=== PATIENT | female | born 1955 | race Two or more races ===

== ENCOUNTER 2016-11-26 08:57 | Day surgery (SDC) | payer OTHER ==
[2016-11-25 14:07] VITALS: BMI 31.0
[2016-11-26 13:08] VITALS: PULSE 66
[2016-11-26 15:15] VITALS: BP 136/67; TEMP 97.4
--- NOTE | 2016-11-27 13:10 | PATH ---
Surgical Pathology Report Patient Name: JOSE ROGERS [facility]. Rec. #: [id number] /Age/Gender: 1955 (Age: 61) / F Account: [id number] Location: U-ENDOSCOPY Taken: 11/26/2016 Received: 11/26/2016 Reported: 11/27/2016 Physicians: Hugo Feliz M.D. Specimen(s) Received A: BX PROXIMAL TRANSVERSE COLON POLYP B: BX DISTAL TRANSVERSE COLON POLYP Clinical History History of colonic polyp Diverticulosis, colon polyps Final Diagnosis A. COLON, PROXIMAL TRANSVERSE, POLYP, BIOPSY: TUBULAR ADENOMA. B. COLON, DISTAL TRANSVERSE, POLYP, BIOPSY: SERRATED ADENOMA. Electronically Signed Alf Ch M.D. Gross Description A. Received in formalin, labeled "biopsy proximal transverse colon polyp" is a calix, irregular portion of soft tissue measuring 0.4 cm in greatest dimension. The specimen is submitted in toto in one cassette. B. Received in formalin, labeled "biopsy distal transverse colon polyp" are 2 calix, irregular portions of soft tissue measuring 0.3 and 0.5 cm in greatest dimension. The specimens are submitted in toto in one cassette. DL/11/26/2016 saudi11/26/2016
== END 2016-11-26 15:15 | disposition home or self-care (01) ==
LOC: JASU-ENDO 08:57
PROVIDERS: ATTEND Internal Medicine Gastroenterology
PROC: 0DBL8ZX Excision of Transverse Colon, Via Natural or Artificial Opening Endoscopic, Diagnostic (ICD-10-PCS; 2016-11-26)
PROC: 0DBE8ZX Excision of Large Intestine, Via Natural or Artificial Opening Endoscopic, Diagnostic (ICD-10-PCS; principal; 2016-11-26 10:00)
DX: Z86.010 Personal history of colon polyps (principal); K57.30 Diverticulosis of large intestine without perforation or abscess without bleeding; K63.5 Polyp of colon; D12.3 Benign neoplasm of transverse colon
CPT/HCPCS: 88305-TC

== ENCOUNTER 2017-02-05 16:09 | Inpatient (IN) | payer OTHER ==
--- NOTE | 2017-02-05 17:03 | PDOC ---
Rapid Medical Evaluation Chief Complaint: Shortness of Breath Time Seen by Provider: 02/05/17 16:57 Medical Evaluation: Allergies Allergy/AdvReac Type Severity Reaction Status Date / Time No Known Allergies Allergy Verified 09/06/16 14:30 02/05/17 16:[address] Beth for labs and ultrasound of abdomen. Went home but has been worsen SOB/ Dizzy - C/O pain- Hx anemia
[2017-02-05 17:41] LABS: BASOPHIL 0.4 % (0-2.0); EOSINOPHIL 0.5 % (0-4.5); MCH 29.1 pg (25.7-33.7); MCHC 32.4 g/dl (32.0-36.0); MEAN CELL VOLUME 89.7 fl (80-96); MEAN PLT VOLUME 8.8 fl (7.5-11.1); NEUTROPHILS 80.8 % (42.8-82.8); PLATELET COUNT 327 K/MM3 (134-434); RDW 15.5 % (11.6-15.6); WHITE BLOOD COUNT 8.9 K/mm3 (4.0-10.0)
[2017-02-05 18:00] LABS: URINE APPEARANCE CLEAR; URINE BILIRUBIN NEGATIVE (NEGATIVE); URINE BLOOD NEGATIVE (NEGATIVE); URINE COLOR LTYELLOW; URINE GLUCOSE (UA) NEGATIVE (NEGATIVE); URINE KETONE NEGATIVE (NEGATIVE); URINE LEUK ESTERASE NEGATIVE (NEGATIVE); URINE NITRITE NEGATIVE (NEGATIVE); URINE UROBILINOGEN NEGATIVE E.U./dl (0.2-1.0)
[2017-02-05 18:10] LABS: URINE PROTEIN 1+ (NEGATIVE)
[2017-02-05 18:24] LABS: CREATININE 2.5 mg/dL (0.55-1.02)
[2017-02-05 18:25] LABS: ALBUMIN 2.9 g/dl (3.4-5.0); BILIRUBIN,TOTAL 0.4 mg/dL (0.2-1.0); CALCIUM 8.1 mg/dL (8.5-10.1); TOT PROT 6.8 g/dl (6.4-8.2)
--- NOTE | 2017-02-05 19:06 | PDOC ---
History of Present Illness - General History Source: Patient Exam Limitations: No Limitations - History of Present Illness Initial Comments: 02/05/17 19:20 The patient is a 61 year old female, with a significant past medical history of anemia, asthma, uterine CA, COPD, diabetes, HTN and HLD, who presents to the emergency department with abdominal pain/bloating, constipation and shortness of breath. She describes her abdominal pain as a bloating sensation, ranging from mild to moderate, without radiation or modifying factors. She attests her shortness of breath as due to her abdominal bloating. She had an ultrasound prior to presentation, which showed cholelithiasis and hepatomegaly but no evidence of ascites. The patient denies chest pain, headache and dizziness. Denies fever, chills, nausea, vomit and diarrhea. Denies dysuria, frequency, urgency and hematuria. Allergies: None Past surgical history: Abdominal surgery Social history: No alcohol, tobacco or drug use reported <Aston Dang - Last Filed: 02/05/17 19:22> <Cee Rosa - Last Filed: 02/05/17 22:58> <Elder Garcia - Last Filed: 02/05/17 23:32> - General Chief Complaint: Shortness of Breath Stated Complaint: SOB Time Seen by Provider: 02/05/17 16:57 Past History <Aston Dang - Last Filed: 02/05/17 19:22> <Cee Rosa - Last Filed: 02/05/17 22:58> - Past Medical History Anemia: Yes Asthma: Yes Cancer: Yes (UTERINE 2007) Cardiac Disorders: Yes (ARRYTHMIA) CVA: No COPD: Yes CHF: Yes Dementia: No Diabetes: Yes GI Disorders: Yes (NAUSEA AND VOMITING,COLON POLYP) Disorders: Yes HTN: Yes Hypercholesterolemia: Yes Liver Disease: No Suicide Attempt (Hx): No Seizures: No Thyroid Disease: No - Surgical History Abdominal Surgery: No Appendectomy: No Cardiac Surgery: No Cholecystectomy: No Lung Surgery: No Neurologic Surgery: No Orthopedic Surgery: No - Family Disease History Family Disease History: Other: Father (kidney disease), Brother (kidney disease) - Immunization History Immunization Up to Date: Yes - Psycho/Social/Smoking Cessation Hx Anxiety: No Suicidal Ideation: No Smoking Status: Yes Smoking History: Current every day smoker Years of Tobacco Use: 31 Have you smoked in the past 12 months: Yes Number of Cigarettes Smoked Daily: 10 Information on smoking cessation initiated: No 'Breaking Loose' booklet given: 11/26/16 Hx Alcohol Use: No Drug/Substance Use Hx: No Substance Use Type: None Hx Substance Use Treatment: No <Radha,Boris - Last Filed: 02/05/17 23:32> - Past Medical History Allergies/Adverse Reactions: Allergies Allergy/AdvReac Type Severity Reaction Status Date / Time No Known Allergies Allergy Verified 02/05/17 17:01 Home Medications: Ambulatory Orders Aspirin 81 mg PO DAILY 01/18/14 Albuterol 0.083% Nebulizer Laura [Ventolin 0.083% Nebulizer Soln -] 1 neb NEB Q4H PRN #120 vial 11/19/14 Alprazolam [Xanax] 0.5 mg PO HS PRN #15 tablet 11/19/14 Hydralazine HCl [Apresoline -] 50 mg PO BID #60 tablet 11/19/14 Metoprolol Succinate [Toprol XL -] 25 mg PO DAILY #30 tab.sr.24h 11/19/14 Folic Acid 1 mg PO DAILY 01/09/16 Furosemide [Lasix -] 80 mg PO BID@0600,1400 #60 tablet 01/11/16 Glyburide 5 mg PO DAILY 09/06/16 Atorvastatin Ca [Lipitor] 20 mg PO HS 11/25/16 Iron Polysaccharides [Niferex-150 -] 150 mg PO DAILY 11/25/16 Lisinopril [Zestril] 2.5 mg PO DAILY 11/26/16 Metolazone 2.5 mg PO DAILY 11/26/16 Pramipexole Di-HCl [Mirapex] 0.25 mg PO DAILY 11/26/16 Review of Systems - Review of Systems Able to Perform ROS?: Yes Comments:: 02/05/17 19:21 GENERAL/CONSTITUTIONAL: No fever or chills. No weakness. HEAD, EYES, EARS, NOSE AND THROAT: No change in vision. No ear pain or discharge. No sore throat. CARDIOVASCULAR: +Shortness of breath No chest pain RESPIRATORY: No cough, wheezing, or hemoptysis. GASTROINTESTINAL: +Abdominal pain and bloating, constipation. No nausea, vomiting, diarrhea GENITOURINARY: No dysuria, frequency, or change in urination. MUSCULOSKELETAL: No joint or muscle swelling or pain. No neck or back pain. SKIN: No rash NEUROLOGIC: No headache, vertigo, loss of consciousness, or change in strength/ sensation. ENDOCRINE: No increased thirst. No abnormal weight change HEMATOLOGIC/LYMPHATIC: No anemia, easy bleeding, or history of blood clots. ALLERGIC/IMMUNOLOGIC: No hives or skin allergy. <AltonAston Maris - Last Filed: 02/05/17 19:22> *Physical Exam - Vital Signs Last Vital Signs Temp Pulse Resp BP Pulse Ox 98.2 F 80 25 H 136/69 98 02/05/17 16:57 02/05/17 16:57 02/05/17 16:57 02/05/17 16:57 02/05/17 16:57 - Physical Exam Comments: 02/05/17 19:21 GENERAL: +Morbidly obese. Awake, alert, and fully oriented, in no acute distress HEAD: No signs of trauma, normocephalic, atraumatic EYES: PERRLA, EOMI, sclera anicteric, conjunctiva clear ENT: Auricles normal inspection, hearing grossly normal, nares patent, oropharynx clear without exudates. Moist mucosa NECK: Normal ROM, supple, no lymphadenopathy, JVD, or masses LUNGS: No distress, speaks full sentences, clear to auscultation bilaterally HEART: Regular rate and rhythm, normal S1 and S2, no murmurs, rubs or gallops, peripheral pulses normal and equal bilaterally. ABDOMEN: +Soft, distended, tympanitic abdomen, nontender, bowel sounds are distant. No guarding, no rebound. No masses EXTREMITIES: Normal inspection, Normal range of motion, no edema. No clubbing or cyanosis. NEUROLOGICAL: Cranial nerves II through XII grossly intact. Normal speech, normal gait, no focal sensorimotor deficits SKIN: Warm, Dry, normal turgor, no rashes or lesions noted. <Aston Dang - Last Filed: 02/05/17 19:22> - Vital Signs Last Vital Signs Temp Pulse Resp BP Pulse Ox 98.2 F 76 18 154/73 98 02/05/17 16:57 02/05/17 20:09 02/05/17 20:09 02/05/17 20:09 02/05/17 20:09 <MoeCee - Last Filed: 02/05/17 22:58> - Vital Signs Last Vital Signs Temp Pulse Resp BP Pulse Ox 98.2 F 80 25 H 136/69 98 02/05/17 16:57 02/05/17 16:57 02/05/17 16:57 02/05/17 16:57 02/05/17 16:57 <Elder Garcia - Last Filed: 02/05/17 23:32> Heart Score/ECG Review #1 ECG reviewed & interpreted by me at: 19:23 02/05/17 17:20 Ventricular rate: 78 bpm Normal sinus rhythm Nonspecific ST and T wave abnormality <Aston Dang - Last Filed: 02/05/17 19:22> ED Treatment Course - LABORATORY CBC & Chemistry Diagram: 02/05/17 17:30 02/05/17 17:30 - ADDITIONAL ORDERS Additional order review: Laboratory Results 02/05/17 02/05/17 17:45 17:30 Sodium 140 Potassium 3.6 Chloride 104 Carbon Dioxide 25 Anion Gap 11 BUN 65 H Creatinine 2.5 H Creat Clearance w eGFR 19.58 Random Glucose 151 H Calcium 8.1 L Total Bilirubin 0.4 AST 31 ALT 28 Alkaline Phosphatase 186 H Total Protein 6.8 Albumin 2.9 L Lipase 397 H Urine Color Ltyellow Urine Appearance Clear Urine pH 5.0 Ur Specific [place] 1.008 Urine Protein 1+ H Urine Glucose (UA) Negative Urine Ketones Negative Urine Blood Negative Urine Nitrite Negative Urine Bilirubin Negative Urine Urobilinogen Negative Ur Leukocyte Esterase Negative 02/05/17 17:30 RBC 2.88 L MCV 89.7 MCHC 32.4 RDW 15.5 MPV 8.8 Neutrophils % 80.8 D Lymphocytes % 6.5 L D Monocytes % 11.8 H Eosinophils % 0.5 Basophils % 0.4 <Aston Dang - Last Filed: 02/05/17 19:22> - LABORATORY CBC & Chemistry Diagram: 02/05/17 17:30 02/05/17 17:30 - ADDITIONAL ORDERS Additional order review: Laboratory Results 02/05/17 02/05/17 17:45 17:30 Sodium 140 Potassium 3.6 Chloride 104 Carbon Dioxide 25 Anion Gap 11 BUN 65 H Creatinine 2.5 H Creat Clearance w eGFR 19.58 Random Glucose 151 H Calcium 8.1 L Total Bilirubin 0.4 AST 31 ALT 28 Alkaline Phosphatase 186 H Total Protein 6.8 Albumin 2.9 L Lipase 397 H Urine Color Ltyellow Urine Appearance Clear Urine pH 5.0 Ur Specific [place] 1.008 Urine Protein 1+ H Urine Glucose (UA) Negative Urine Ketones Negative Urine Blood Negative Urine Nitrite Negative Urine Bilirubin Negative Urine Urobilinogen Negative Ur Leukocyte Esterase Negative Urine RBC 1 Urine WBC <1 Ur Epithelial Cells Rare Urine Bacteria Rare Hyaline Casts 3 Urine Mucus Rare 02/05/17 17:30 RBC 2.88 L MCV 89.7 MCHC 32.4 RDW 15.5 MPV 8.8 Neutrophils % 80.8 D Lymphocytes % 6.5 L D Monocytes % 11.8 H Eosinophils % 0.5 Basophils % 0.4 - RADIOLOGY Radiograph Interpretation: 02/05/17 22:58 Abdomen/Pelvis CT Impression: No CT findings of acute pathology are seen within the abdomen/ pelvis. Concentric subcutaneous edema is noted along the abdomen and pelvis more prominent along the flanks which has developed in comparison to a previous CT exam of 08/19/2011. Cardiomegaly. Mild inferior vena cava and hepatic vein distention is noted possibly secondary to cardiac dysfunction. Correlate clinically. Cholelithiasis. In comparison to the 2011 CT study there is increased bilateral perirenal soft tissue stranding which could be on the basis of noninfectious inflammation. Reported By: Pablito Rainey MD <Cee Rosa - Last Filed: 02/05/17 22:58> - LABORATORY CBC & Chemistry Diagram: 02/05/17 17:30 02/05/17 17:30 - ADDITIONAL ORDERS Additional order review: Laboratory Results 02/05/17 02/05/17 17:45 17:30 Sodium 140 Potassium 3.6 Chloride 104 Carbon Dioxide 25 Anion Gap 11 BUN 65 H Creatinine 2.5 H Creat Clearance w eGFR 19.58 Random Glucose 151 H Calcium 8.1 L Total Bilirubin 0.4 AST 31 ALT 28 Alkaline Phosphatase 186 H Total Protein 6.8 Albumin 2.9 L Lipase 397 H Urine Color Ltyellow Urine Appearance Clear Urine pH 5.0 Ur Specific [place] 1.008 Urine Protein 1+ H Urine Glucose (UA) Negative Urine Ketones Negative Urine Blood Negative Urine Nitrite Negative Urine Bilirubin Negative Urine Urobilinogen Negative Ur Leukocyte Esterase Negative 02/05/17 17:30 RBC 2.88 L MCV 89.7 MCHC 32.4 RDW 15.5 MPV 8.8 Neutrophils % 80.8 D Lymphocytes % 6.5 L D Monocytes % 11.8 H Eosinophils % 0.5 Basophils % 0.4 <Elder Garcia - Last Filed: 02/05/17 23:32> Medical Decision Making - Medical Decision Making 02/05/17 20:51 Patient is a morbidly obese 61-year-old female with multiple comorbidities who presents with worsening abdominal bloating and discomfort that exacerbates her dyspnea when she is supine or minimally exerts herself. Patient has no respiratory symptoms at rest. In the ER, patient is awake and alert, with a soft , distended and tympanitic abdomen which has minimal periumbilical tenderness to deep palpation only. Bowel sounds are distant. Will obtain CT of abdomen and pelvis with by mouth contrast. Will reassess. 02/05/17 23:29 Patient reassessed. Patient is resting comfortably, with dyspnea with minimal exertion and when supine. CT that and pelvis reveals no evidence of acute intra- abdominal pathology. Diffuse subcutaneous edema which is more pronounced at the flanks with prominent inferior vena cava and dilated hepatic veins was also noted likely related to diastolic heart dysfunction. CBC reveals moderate anemia with hemoglobin of 8 and hematocrit of 25. In this patient, anemia is chronic and is likely related to chronic blood loss, source of which has not been identified after an extensive workup. Given significant comorbidities, anemia may be contributing to patient's overall cardiac dysfunction. At this time, will admit patient to med/surge and will transfuse 2 units of packed cells. CMP reveals persistent chronic renal insufficiency. Case discussed with Dr. Mcgrath. He agrees with the plan of care. <Elder Garcia - Last Filed: 02/05/17 23:32> *DC/Admit/Observation/Transfer - Attestations Scribe Attestion: 02/05/17 19:21 Documentation prepared by Aston Dang, acting as biomedical manager for Elder Garcia MD <Aston Dang - Last Filed: 02/05/17 19:22> <Cee Rosa - Last Filed: 02/05/17 22:58> - Discharge Dispostion Admit: Yes - Attestations Physician Attestion: 02/05/17 20:51 The documentation was prepared by the scribe under my direct supervision. I have reviewed the documentation which correctly represents the findings, medical decision-making and critical action taken by me. <Elder Garcia - Last Filed: 02/05/17 23:32> Diagnosis at time of Disposition: Symptomatic anemia Edema Qualifiers: Edema type: generalized Qualified Code(s): R60.1 - Generalized edema CHF (congestive heart failure) Qualifiers: Congestive heart failure type: unspecified congestive heart failure type Congestive heart failure chronicity: acute on chronic Qualified Code(s): I50.9 - Heart failure, unspecified - Discharge Dispostion Condition at time of disposition: Fair - Referrals Referrals: Anyi Mcgrath MD [Primary Care Provider] -
[2017-02-05 19:44] LABS: URINE BACTERIA RARE /hpf (NONE SEEN); URINE HYALINE CAST 3 /lpf; URINE MUCUS RARE; URINE RBC 1 /hpf (0-3); URINE WBC <1 /hpf (3-5)
[2017-02-05] MEDS ORDERED: ALBUTEROL SO4 0.083% IH SOL 2.5 MG/3 ML VIAL.NEB. NEB PRN (23:35)
[2017-02-05] MEDS ORDERED: ALPRAZolam 0.25 MG TABLET PO PRN (23:35)
[2017-02-05] MEDS ORDERED: ACETAMINOPHEN 325 MG TABLET (FP) PO PRN (23:37)
[2017-02-06] MEDS ORDERED: HEPARIN NA (PORCINE) 5,000 UNITS/ML 1ML VIAL ONE (00:16)
[2017-02-06] MEDS ORDERED: ALBUTEROL SO4 0.083% IH SOL 2.5 MG/3 ML VIAL.NEB. NEB ONE (00:16)
[2017-02-06] MEDS: ALBUTEROL SO4 0.083% IH SOL 2.5 MG/3 ML VIAL.NEB. NEB SCH ×4 (00:22→18:18)
[2017-02-06] MEDS: HEPARIN NA (PORCINE) 5,000 UNITS/ML 1ML VIAL SQ SCH ×3 (00:22→21:48)
[2017-02-06 05:29] VITALS: BMI 34.6
[2017-02-06] MEDS ORDERED: INFLUENZA VACCINE 45 MCG/0.5 ML (MDV 16-17) IM ONE (06:00)
[2017-02-06] MEDS: FUROSEMIDE 40 MG/4 ML INJECTABLE VIAL IVPB SCH ×2 (06:27→16:08)
[2017-02-06] MEDS: glyBURIDE 5 MG TABLET (UD) PO SCH (06:27)
[2017-02-06] MEDS: INSULIN SLIDING SCALE (NOVOLOG) 1 VIAL SQ SCH ×4 (06:28→21:35)
[2017-02-06 07:55] LABS: BASOPHIL 0.3 % (0-2.0); EOSINOPHIL 0.9 % (0-4.5); MCHC 32.2 g/dl (32.0-36.0); MEAN CELL VOLUME 90.2 fl (80-96); MEAN PLT VOLUME 8.9 fl (7.5-11.1); NEUTROPHILS 76.1 % (42.8-82.8); PLATELET COUNT 278 K/MM3 (134-434); RDW 15.3 % (11.6-15.6); WHITE BLOOD COUNT 8.6 K/mm3 (4.0-10.0)
[2017-02-06 08:07] LABS: ALBUMIN 2.8 g/dl (3.4-5.0); CALCIUM 7.7 mg/dL (8.5-10.1); CREATININE 2.5 mg/dL (0.55-1.02); MAGNESIUM 2.1 mg/dL (1.8-2.4)
[2017-02-06 08:12] LABS: BILIRUBIN,TOTAL 0.5 mg/dL (0.2-1.0); TOT PROT 6.6 g/dl (6.4-8.2); TROPONIN I 0.03 ng/ml (0.00-0.05)
--- NOTE | 2017-02-06 08:36 | HP ---
Admitting History and Physical - Admission History of Present Illness: 61 year old female, with a significant past medical history of anemia, asthma, uterine CA, COPD, diabetes, HTN and HLD, who presents to the emergency department with abdominal pain/bloating, constipation and shortness of breath. She describes her abdominal pain as a bloating sensation, ranging from mild to moderate, without radiation or modifying factors. She attests her shortness of breath as due to her abdominal bloating. She had an ultrasound prior to presentation, which showed cholelithiasis and hepatomegaly but no evidence of ascites. - Past Medical History Cardiovascular: Yes: CHF, HTN, Hyperlipdemia, Pulmonary Hypertension Pulmonary: Yes: Asthma, Sleep Apnea (on BIPAP at night) Gastrointestinal: Yes: GI Bleed (see HPI), Other (had EGD and colono 12/31, ) Renal/: Yes: Renal Failure, Renal Inusuff ...LMP: 11/17/07 ...: No Heme/Onc: Yes: Anemia Endocrine: Yes: Diabetes Mellitus (uncontrolled) - Smoking History Smoking history: Current every day smoker Have you smoked in the past 12 months: Yes Aproximately how many cigarettes per day: 10 - Alcohol/Substance Use Hx Alcohol Use: No - Social History ADL: Independent History of Recent Travel: No Home Medications - Allergies Allergies/Adverse Reactions: Allergies Allergy/AdvReac Type Severity Reaction Status Date / Time No Known Allergies Allergy Verified 02/05/17 17:01 - Home Medications Home Medications: Ambulatory Orders Aspirin 81 mg PO DAILY 01/18/14 Albuterol 0.083% Nebulizer Laura [Ventolin 0.083% Nebulizer Soln -] 1 neb NEB Q4H PRN #120 vial 11/19/14 Alprazolam [Xanax] 0.5 mg PO HS PRN #15 tablet 11/19/14 Hydralazine HCl [Apresoline -] 50 mg PO BID #60 tablet 11/19/14 Metoprolol Succinate [Toprol XL -] 25 mg PO DAILY #30 tab.sr.24h 11/19/14 Folic Acid 1 mg PO DAILY 01/09/16 Furosemide [Lasix -] 80 mg PO BID@0600,1400 #60 tablet 01/11/16 Glyburide 5 mg PO DAILY 09/06/16 Atorvastatin Ca [Lipitor] 20 mg PO HS 11/25/16 Iron Polysaccharides [Niferex-150 -] 150 mg PO DAILY 11/25/16 Lisinopril [Zestril] 2.5 mg PO DAILY 11/26/16 Metolazone 2.5 mg PO DAILY 11/26/16 Pramipexole Di-HCl [Mirapex] 0.25 mg PO DAILY 11/26/16 Review of Systems - Review of Systems Cardiovascular: reports: Edema, Shortness of Breath. denies: Chest Pain Respiratory: reports: SOB, SOB on Exertion Gastrointestinal: reports: Abdominal Pain, Bloating Genitourinary: reports: No Symptoms Physical Examination Vital Signs: Vital Signs Temperature 98.1 F 02/06/17 06:38 Pulse Rate 76 02/06/17 06:38 Respiratory Rate 22 02/06/17 06:38 Blood Pressure 155/81 02/06/17 06:38 O2 Sat by Pulse Oximetry (%) 100 02/06/17 03:36 Cardiovascular: Yes: Murmur, S1, S2 Respiratory: Yes: Regular, CTA Bilaterally Gastrointestinal: Yes: Normal Bowel Sounds, Soft, Distention Edema: Yes Neurological: Yes: Alert, Oriented Labs: CBC, BMP 02/06/17 06:20 02/06/17 06:20 Problem List - Problems (1) CHF (congestive heart failure) Assessment/Plan: RT SIDED IV LASIX AND ALBUMIN MONITOR LABS Code(s): I50.9 - HEART FAILURE, UNSPECIFIED Qualifiers: Congestive heart failure type: unspecified congestive heart failure type Congestive heart failure chronicity: acute on chronic Qualified Code(s ): I50.9 - Heart failure, unspecified (2) Symptomatic anemia Assessment/Plan: S/P PRBC MONITOR CBC Code(s): D64.9 - ANEMIA, UNSPECIFIED (3) CKD (chronic kidney disease) Code(s): N18.9 - CHRONIC KIDNEY DISEASE, UNSPECIFIED Qualifiers: Chronic kidney disease stage: unspecified stage Qualified Code(s): N18.9 - Chronic kidney disease, unspecified (4) COPD (chronic obstructive pulmonary disease) Assessment/Plan: NEBS Code(s): J44.9 - CHRONIC OBSTRUCTIVE PULMONARY DISEASE, UNSPECIFIED (5) Diabetes mellitus Assessment/Plan: BGM ENDO A1C Code(s): E11.9 - TYPE 2 DIABETES MELLITUS WITHOUT COMPLICATIONS (6) Abdominal pain Assessment/Plan: GI CONSULT CT SCAN --EDEMA Code(s): R10.9 - UNSPECIFIED ABDOMINAL PAIN
[2017-02-06] MEDS: LISINOPRIL 5 MG TABLET (FP) PO SCH (09:46)
[2017-02-06] MEDS: ASPIRIN 81 MG CHEWABLE TABLETS PO SCH (09:46)
[2017-02-06] MEDS: hydrALAZINE HCL 50 MG TABLET (FP) PO SCH ×2 (09:46→21:48)
[2017-02-06] MEDS: FOLIC ACID 1 MG TABLET (FP) PO SCH (09:46)
[2017-02-06] MEDS: METOPROLOL SUCCINATE 25 MG TAB.SR.24H (FP) PO SCH (09:47)
[2017-02-06 10:52] LABS: THYROID STIMULATING HORMONE 0.98 uIU/ml (0.358-3.74)
--- NOTE | 2017-02-06 14:50 | CONSULT ---
Consult Consult Specialty:: Nephrology Reason for Consultation:: CKD - History of Present Illness Chief Complaint: abdominal pain and bloating History of Present Illness: Pt is a 61 year old lady with pmhx of CKD, anemia, asthma, COPD, DM, HTN, uterine cancer and hyperlipidemia who presents to the ER with abdominal pain. She complains of bloating. She denies vomiting or diarrhea. She denies dysuria or hematuria. She does have history of CKD. She follows with Dr Kay. Her renal function is not far from baseline. She denies fevers or chills. She denies blood in the stool. - History Source History Provided By: Patient, Medical Record - Past Medical History Cardio/Vascular: Yes: CHF, HTN, Hyperlipdemia, Pulmonary Hypertension Pulmonary: Yes: Asthma, Sleep Apnea (on BIPAP at night) Gastrointestinal: Yes: GI Bleed (see HPI), Other (had EGD and colono 12/31, ) Renal/: Yes: Renal Failure, Renal Inusuff ...LMP: 11/17/07 ...: No Endocrine: Yes: Diabetes Mellitus (uncontrolled) - Alcohol/Substance Use Hx Alcohol Use: No - Smoking History Smoking history: Current every day smoker Have you smoked in the past 12 months: Yes Aproximately how many cigarettes per day: 10 - Social History ADL: Independent History of Recent Travel: No Home Medications - Allergies Allergies/Adverse Reactions: Allergies Allergy/AdvReac Type Severity Reaction Status Date / Time No Known Allergies Allergy Verified 02/05/17 17:01 - Home Medications Home Medications: Ambulatory Orders Aspirin 81 mg PO DAILY 01/18/14 Albuterol 0.083% Nebulizer Laura [Ventolin 0.083% Nebulizer Soln -] 1 neb NEB Q4H PRN #120 vial 11/19/14 Alprazolam [Xanax] 0.5 mg PO HS PRN #15 tablet 11/19/14 Hydralazine HCl [Apresoline -] 50 mg PO BID #60 tablet 11/19/14 Metoprolol Succinate [Toprol XL -] 25 mg PO DAILY #30 tab.sr.24h 11/19/14 Folic Acid 1 mg PO DAILY 01/09/16 Furosemide [Lasix -] 80 mg PO BID@0600,1400 #60 tablet 01/11/16 Glyburide 5 mg PO DAILY 09/06/16 Atorvastatin Ca [Lipitor] 20 mg PO HS 11/25/16 Iron Polysaccharides [Niferex-150 -] 150 mg PO DAILY 11/25/16 Lisinopril [Zestril] 2.5 mg PO DAILY 11/26/16 Metolazone 2.5 mg PO DAILY 11/26/16 Pramipexole Di-HCl [Mirapex] 0.25 mg PO DAILY 11/26/16 Family Disease History - Family Disease History Family History: Denies Review of Systems - Review of Systems Constitutional: reports: Malaise Eyes: reports: No Symptoms HENT: reports: No Symptoms Neck: reports: No Symptoms Cardiovascular: reports: No Symptoms Respiratory: reports: SOB on Exertion Gastrointestinal: reports: Abdominal Pain, Bloating. denies: Diarrhea, Vomiting Musculoskeletal: reports: No Symptoms Integumentary: reports: No Symptoms Neurological: reports: No Symptoms Endocrine: reports: No Symptoms Hematology/Lymphatic: reports: No Symptoms Psychiatric: reports: No Symptoms Physical Exam Vital Signs: Vital Signs Temperature 98.2 F 02/06/17 10:00 Pulse Rate 82 02/06/17 10:00 Respiratory Rate 20 02/06/17 10:00 Blood Pressure 138/58 02/06/17 10:00 O2 Sat by Pulse Oximetry (%) 100 02/06/17 03:36 Constitutional: Yes: Calm Eyes: Yes: Conjunctiva Clear HENT: Yes: Atraumatic Neck: Yes: Supple Cardiovascular: Yes: S1, S2 Respiratory: Yes: CTA Bilaterally Gastrointestinal: Yes: Soft, Abdomen, Obese Renal/: Yes: WNL Musculoskeletal: Yes: WNL Edema: Yes Edema: LLE: 1+, RLE: 1+ Neurological: Yes: Oriented Psychiatric: Yes: Oriented Labs: CBC, BMP 02/06/17 06:20 02/06/17 06:20 Laboratory Tests 01/11/16 04/30/16 05/06/16 08:20 09:40 12:20 WBC Hgb Sodium Potassium Chloride Carbon Dioxide Anion Gap BUN Creatinine 2.0 H 2.3 H 2.6 H Urine Color Urine Appearance Urine pH Ur Specific [place] Urine Glucose (UA) Urine Ketones Urine Blood Urine Nitrite Urine Bilirubin Urine Urobilinogen Ur Leukocyte Esterase 02/05/17 02/05/17 02/05/17 10:30 17:30 17:30 WBC Hgb 8.4 L Sodium Potassium Chloride Carbon Dioxide Anion Gap BUN 65 H Creatinine 2.5 H 2.5 H Urine Color Urine Appearance Urine pH Ur Specific [place] Urine Glucose (UA) Urine Ketones Urine Blood Urine Nitrite Urine Bilirubin Urine Urobilinogen Ur Leukocyte Esterase 02/05/17 02/06/17 02/06/17 17:45 06:20 06:20 WBC 8.6 Hgb 8.9 L Sodium 138 Potassium 3.7 Chloride 103 Carbon Dioxide 24 Anion Gap 11 BUN 62 H Creatinine 2.5 H Urine Color [place] Urine Appearance Clear Urine pH 5.0 Ur Specific [place] 1.008 Urine Glucose (UA) Negative Urine Ketones Negative Urine Blood Negative Urine Nitrite Negative Urine Bilirubin Negative Urine Urobilinogen Negative Ur Leukocyte Esterase Negative Imaging - Results Chest X-ray: Report Reviewed Problem List - Problems (1) Abdominal pain Code(s): R10.9 - UNSPECIFIED ABDOMINAL PAIN (2) CHF (congestive heart failure) Code(s): I50.9 - HEART FAILURE, UNSPECIFIED Qualifiers: Congestive heart failure type: unspecified congestive heart failure type Congestive heart failure chronicity: acute on chronic Qualified Code(s ): I50.9 - Heart failure, unspecified (3) Edema Code(s): R60.9 - EDEMA, UNSPECIFIED Qualifiers: Edema type: generalized Qualified Code(s): R60.1 - Generalized edema (4) Symptomatic anemia Code(s): D64.9 - ANEMIA, UNSPECIFIED (5) Acute CHF (congestive heart failure) Code(s): I50.9 - HEART FAILURE, UNSPECIFIED (6) CKD (chronic kidney disease) Code(s): N18.9 - CHRONIC KIDNEY DISEASE, UNSPECIFIED Qualifiers: Chronic kidney disease stage: unspecified stage Qualified Code(s): N18.9 - Chronic kidney disease, unspecified (7) Diabetes mellitus Code(s): E11.9 - TYPE 2 DIABETES MELLITUS WITHOUT COMPLICATIONS (8) HTN (hypertension) Code(s): I10 - ESSENTIAL (PRIMARY) HYPERTENSION Assessment/Plan Current Medications Generic Name Dose Route Start Last Admin Trade Name Freq PRN Reason Stop Dose Admin Acetaminophen 650 mg 02/05/17 23:37 Tylenol - PO Q4H PRN FEVER OR PAIN Albumin Human 25 gm 02/06/17 10:00 Albumin Human 25% - IVPB 02/07/17 22:01 BID ALDO Albuterol Sulfate 1 amp 02/05/17 23:35 Ventolin 0.083% Nebulizer Soln - NEB Q4H PRN SHORT OF BREATH/WHEEZING Albuterol Sulfate 1 amp 02/06/17 00:00 02/06/17 11:05 Ventolin 0.083% Nebulizer Soln - NEB 1 amp Q6HPO ALDO Administration Alprazolam 0.5 mg 02/05/17 23:35 Xanax - PO 02/08/17 23:34 HS PRN ANXIETY Aspirin 81 mg 02/06/17 10:00 02/06/17 09:46 Asa - PO 81 mg DAILY ALDO Administration Atorvastatin Calcium 20 mg 02/06/17 22:00 Lipitor - PO HS [facility] Folic Acid 1 mg 02/06/17 10:00 02/06/17 09:46 Folic Acid - PO 1 mg DAILY ALDO Administration Furosemide 80 mg 02/06/17 06:00 02/06/17 16:08 Lasix Injection - IVPB 80 mg BIDLASIX [facility] Administration Glyburide 5 mg 02/06/17 07:00 02/06/17 06:27 Diabeta - PO 5 mg DAILY@0700 [facility] Administration Heparin Sodium (Porcine) 5,000 unit 02/05/17 23:45 02/06/17 09:48 Heparin - SQ 5,000 unit BID ALDO Administration Hydralazine HCl 50 mg 02/06/17 10:00 02/06/17 09:46 Apresoline - PO 50 mg BID ALDO Administration Insulin Aspart 1 vial 02/06/17 07:00 02/06/17 12:30 Novolog Vial Sliding Scale - SQ Not Given ACHS [facility] Protocol Lisinopril 2.5 mg 02/06/17 10:00 02/06/17 09:46 Prinivil PO 2.5 mg DAILY ALDO Administration Metoprolol Succinate 25 mg 02/06/17 10:00 02/06/17 09:47 Toprol Xl - PO 25 mg DAILY ALDO Administration Pramipexole Dihydrochloride 0.25 mg 02/06/17 10:00 02/06/17 16:09 Mirapex - PO 0.25 mg DAILY ALDO Administration Impression 1. CKD 2. anemia 3. CHF 4. HTN 5. DM 6. hyperlipidemia 7. anxiety 8. uterine cancer 9. 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
--- NOTE | 2017-02-06 15:17 | CON.CARD ---
Cardiology Consult (text) - Consultation Consultation Note: Chief Complaint: Abdominal distension History of Present Illness: 61 yo smoker with h/o mild systolic dysfunction, HTN, HL, pHTN, mod PARVEZ on cpap , CKD (bline CR 1.3-1.4), PAD, DM h/o GIB, presents with abdominal distension x 2 weeks. Also with + early satiety. Triggered by URI with symptoms of cough, congestion, myalgias. States she occasionally misses lasix a few times per month. Denies missing any more doses than usual. Recent difficulty sleeping, though unclear if true orthopnea. No cp, sob, LE edema, pnd, palps, dizziness, bleeding or transient neurologic symptoms. No f/c/s, n/v/d, rashes, headache, visual disturbances. PMHx/PSHx: per hpi Social hx: current smoker, family hx: mother CVA in 60s, fatal periop event 67 (? [place]) ros per hpi Ambulatory Orders Aspirin 81 mg PO DAILY 01/18/14 Albuterol 0.083% Nebulizer Laura [Ventolin 0.083% Nebulizer Soln -] 1 neb NEB Q4H PRN #120 vial 11/19/14 Alprazolam [Xanax] 0.5 mg PO HS PRN #15 tablet 11/19/14 Hydralazine HCl [Apresoline -] 50 mg PO BID #60 tablet 11/19/14 Metoprolol Succinate [Toprol XL -] 25 mg PO DAILY #30 tab.sr.24h 11/19/14 Folic Acid 1 mg PO DAILY 01/09/16 Furosemide [Lasix -] 80 mg PO BID@0600,1400 #60 tablet 01/11/16 Glyburide 5 mg PO DAILY 09/06/16 Atorvastatin Ca [Lipitor] 20 mg PO HS 11/25/16 Iron Polysaccharides [Niferex-150 -] 150 mg PO DAILY 11/25/16 Lisinopril [Zestril] 2.5 mg PO DAILY 11/26/16 Metolazone 2.5 mg PO DAILY 11/26/16 Pramipexole Di-HCl [Mirapex] 0.25 mg PO DAILY 11/26/16 Current Medications Acetaminophen (Tylenol -) 650 mg PO Q4H PRN PRN Reason: FEVER OR PAIN Albumin Human (Albumin Human 25% -) 25 gm IVPB BID ALDO Stop: 02/07/17 22:01 Albuterol Sulfate (Ventolin 0.083% Nebulizer Soln -) 1 amp NEB Q4H PRN PRN Reason: SHORT OF BREATH/WHEEZING Albuterol Sulfate (Ventolin 0.083% Nebulizer Soln -) 1 amp NEB Q6HPO [facility] Last Admin: 02/06/17 11:05 Dose: 1 amp Alprazolam (Xanax -) 0.5 mg PO HS PRN PRN Reason: ANXIETY Stop: 02/08/17 23:34 Aspirin (Asa -) 81 mg PO DAILY [facility] Last Admin: 02/06/17 09:46 Dose: 81 mg Atorvastatin Calcium (Lipitor -) 20 mg PO HS [facility] Folic Acid (Folic Acid -) 1 mg PO DAILY [facility] Last Admin: 02/06/17 09:46 Dose: 1 mg Furosemide (Lasix Injection -) 80 mg IVPB BIDLASIX [facility] Last Admin: 02/06/17 06:27 Dose: 80 mg Glyburide (Diabeta -) 5 mg PO DAILY@0700 [facility] Last Admin: 02/06/17 06:27 Dose: 5 mg Heparin Sodium (Porcine) (Heparin -) 5,000 unit SQ BID [facility] Last Admin: 02/06/17 09:48 Dose: 5,000 unit Hydralazine HCl (Apresoline -) 50 mg PO BID [facility] Last Admin: 02/06/17 09:46 Dose: 50 mg Insulin Aspart (Novolog Vial Sliding Scale -) 1 vial SQ ACHS [facility] PRN Reason: Protocol Last Admin: 02/06/17 12:30 Dose: Not Given Lisinopril (Prinivil) 2.5 mg PO DAILY [facility] Last Admin: 02/06/17 09:46 Dose: 2.5 mg Metoprolol Succinate (Toprol Xl -) 25 mg PO DAILY [facility] Last Admin: 02/06/17 09:47 Dose: 25 mg Pramipexole Dihydrochloride (Mirapex -) 0.25 mg PO DAILY [facility] Vital Signs - 24 hr 02/05/17 02/05/17 02/06/17 16:57 20:09 00:01 Temperature 98.2 F Pulse Rate 80 Pulse Rate [ 76 Left Radial] Respiratory 25 H 18 Rate Blood Pressure 136/69 Blood Pressure 154/73 150/80 [Right Arm] O2 Sat by Pulse 98 98 Oximetry (%) 02/06/17 02/06/17 02/06/17 02:02 03:01 03:36 Temperature 97.9 F 97.9 F 98.1 F Pulse Rate 75 Pulse Rate [ 77 72 Left Radial] Respiratory 20 22 24 Rate Blood Pressure 112/70 Blood Pressure 148/67 164/79 [Right Arm] O2 Sat by Pulse 95 99 100 Oximetry (%) 02/06/17 02/06/17 02/06/17 06:22 06:38 10:00 Temperature 98.1 F 98.1 F 98.2 F Pulse Rate 76 76 82 Pulse Rate [ Left Radial] Respiratory 22 22 20 Rate Blood Pressure 168/71 155/81 138/58 Blood Pressure [Right Arm] O2 Sat by Pulse Oximetry (%) Intake & Output 02/04/17 02/05/17 02/06/17 02/07/17 07:59 07:59 07:59 07:59 Intake Total 300 Balance 300 Weight 214 lb 6.4 oz NAD, calm JVD elevated, neck supple RRR nl s1, s2 no m/r/g + bs soft nt nd ext with trace edema, no c/c + dp/pt, no carotid bruits aaox3 no jaundice, diaphoresis CBC, BMP 02/06/17 06:20 02/06/17 06:20 Laboratory Tests 01/09/16 02/05/17 02/05/17 13:13 10:30 17:30 INR 1.18 H Hemoglobin A1c % Magnesium Total Bilirubin AST ALT Alkaline Phosphatase Troponin I B-Natriuretic Peptide 59782.76 H Albumin Lipase 397 H TSH 02/06/17 02/06/17 06:20 06:20 INR Hemoglobin A1c % 8.8 H D Magnesium 2.1 Total Bilirubin 0.5 D AST 30 ALT 27 Alkaline Phosphatase 185 H Troponin I 0.03 B-Natriuretic Peptide Albumin 2.8 L Lipase TSH 0.98 D eKG: SR, non-specific t wave abnormalities tele: SR occ pvc CXR: clear Abd CT: mild distension of IVC. subcutaneous edema, hepatomegaly. Echo 06/2016: mod LVE, mod decr EF (no EF reported); mild RVE and mild HK; mild L /ANISH; valves WNL; no RVSP LHC 06/29: nl EDP; EF 40% (global); 50-60% OM1 (normal FFR); mild dz others 61 yo smoker with h/o mild systolic dysfunction, HTN, HL, pHTN, mod PARVEZ on cpap , CKD (bline CR 1.3-1.4), PAD, DM h/o GIB, presents with abdominal distension x 2 weeks. acute HF exacerbation - Known biventricular cardiomyopathy/pHTN. Currently with possible acute RHF exacerbation. URI as trigger? - CE neg x 1. EKG without acute ischemic changes. - home diuretic regimen lasix 80 mg po bid. Agree with diuresis with lasix 80 mg IV bid. - daily standing weight, bmp, i/o - mgm't of undelrying parvez and pulmonary disease per pmd - con't hydralazine, metoprolol, lisinopril Mod PARVEZ - con't cpap HTN - con't hydralazine, metoprolol, lisinopril. Uptitrate regimen as needed to maintain systolic < 140. For now, will uptitrate hydralazine dose for tomorrow. Acute on chronic CKD - renal function improving. con't to monitor with diuresis. HL - con't statin
[2017-02-06] MEDS: PRAMIPEXOLE DIHYDROCHLORIDE 0.25 MG TABLET PO SCH (16:09)
--- NOTE | 2017-02-06 17:04 | EKG ---
Test Reason : Blood Pressure : / mmHG Vent. Rate : 082 BPM Atrial Rate : 082 BPM P-R Int : 158 ms QRS Dur : 106 ms QT Int : 424 ms P-R-T Axes : 064 012 -24 degrees QTc Int : 495 ms NORMAL SINUS RHYTHM POSSIBLE LEFT ATRIAL ENLARGEMENT NONSPECIFIC T WAVE ABNORMALITY ABNORMAL ECG WHEN COMPARED WITH ECG OF 09-JAN-2016 13:35, NONSPECIFIC T WAVE ABNORMALITY, WORSE IN ANTEROLATERAL LEADS Confirmed by ARINA VELASCO, MAKENZIE ([id number]) on 02/06/2017 5:04:34 PM Referred By: TR MONTERO Confirmed By:MAKENZIE SANTA MD
[2017-02-06] MEDS: ALBUMIN HUMAN 25% 100 ML VIAL IVPB SCH ×2 (17:08→21:49)
--- NOTE | 2017-02-06 17:09 | EKG ---
Test Reason : Blood Pressure : / mmHG Vent. Rate : 078 BPM Atrial Rate : 078 BPM P-R Int : 136 ms QRS Dur : 094 ms QT Int : 488 ms P-R-T Axes : 082 001 -40 degrees QTc Int : 556 ms POOR DATA QUALITY, INTERPRETATION MAY BE ADVERSELY AFFECTED NORMAL SINUS RHYTHM NONSPECIFIC ST AND T WAVE ABNORMALITY ABNORMAL ECG WHEN COMPARED WITH ECG OF 09-JAN-2016 13:35, NONSPECIFIC T WAVE ABNORMALITY NOW EVIDENT IN ANTERIOR LEADS Confirmed by MAKENZIE SANTA MD ([id number]) on 02/06/2017 5:08:47 PM Referred By: Confirmed By:MAKENZIE SANTA MD
--- NOTE | 2017-02-06 20:50 | CON.GI ---
Consult Consult Specialty:: GI Referred by:: Dr Mcgrath Reason for Consultation:: Abdominal distention - History of Present Illness Chief Complaint: dyspnea and abdominal bloating. History of Present Illness: 59 F with h/o metabolic syndrome, advanced CKD, cardiomyopathy, CHF, COPD- active smoker, admitted with abdominal distention, dyspnea and mild, generalized abdominal pain. She now has no pain but states she is more distended than usual. She had a mildly elevated lipase on admission and CT shows no evidence of obstruction, or ascites. There is cardiomegaly, increased subQ edema affecting the abdominal wall, and a dilated IVC. She has a BNP of 21, 873. - History Source History Provided By: Patient, Medical Record Limitations to Obtaining History: No Limitations - Past Medical History Cardio/Vascular: Yes: CHF, HTN, Hyperlipdemia, Pulmonary Hypertension Pulmonary: Yes: Asthma, Sleep Apnea (on BIPAP at night) Gastrointestinal: Yes: GI Bleed (see HPI), Other (had EGD and colono 12/31, ) Renal/: Yes: Renal Failure, Renal Inusuff ...LMP: 11/17/07 ...: No Endocrine: Yes: Diabetes Mellitus (uncontrolled) - Alcohol/Substance Use Hx Alcohol Use: No - Smoking History Smoking history: Current every day smoker Have you smoked in the past 12 months: Yes Aproximately how many cigarettes per day: 10 - Social History ADL: Independent History of Recent Travel: No Home Medications - Allergies Allergies/Adverse Reactions: Allergies Allergy/AdvReac Type Severity Reaction Status Date / Time No Known Allergies Allergy Verified 02/05/17 17:01 - Home Medications Home Medications: Ambulatory Orders Aspirin 81 mg PO DAILY 01/18/14 Albuterol 0.083% Nebulizer Laura [Ventolin 0.083% Nebulizer Soln -] 1 neb NEB Q4H PRN #120 vial 11/19/14 Alprazolam [Xanax] 0.5 mg PO HS PRN #15 tablet 11/19/14 Hydralazine HCl [Apresoline -] 50 mg PO BID #60 tablet 11/19/14 Metoprolol Succinate [Toprol XL -] 25 mg PO DAILY #30 tab.sr.24h 11/19/14 Folic Acid 1 mg PO DAILY 01/09/16 Furosemide [Lasix -] 80 mg PO BID@0600,1400 #60 tablet 01/11/16 Glyburide 5 mg PO DAILY 09/06/16 Atorvastatin Ca [Lipitor] 20 mg PO HS 11/25/16 Iron Polysaccharides [Niferex-150 -] 150 mg PO DAILY 11/25/16 Lisinopril [Zestril] 2.5 mg PO DAILY 11/26/16 Metolazone 2.5 mg PO DAILY 11/26/16 Pramipexole Di-HCl [Mirapex] 0.25 mg PO DAILY 11/26/16 Physical Exam-GI Vital Signs: Vital Signs Temperature 98.8 F 02/06/17 17:50 Pulse Rate 79 02/06/17 17:50 Respiratory Rate 18 02/06/17 17:50 Blood Pressure 151/84 02/06/17 17:50 O2 Sat by Pulse Oximetry (%) 95 02/06/17 10:00 Constitutional: Yes: Well Nourished, Obese Gastrointestinal Inspection: Yes: Distention (mild) ...Auscultate: Yes: Normoactive Bowel Sounds ...Palpate: No: Tenderness Labs: CBC, BMP 02/06/17 06:20 02/06/17 06:20 Hepatic Panel Total Bilirubin 0.5 mg/dL (0.2-1.0) D 02/06/17 06:20 AST 30 U/L (15-37) 02/06/17 06:20 ALT 27 U/L (12-78) 02/06/17 06:20 Alkaline Phosphatase 185 U/L (45-117) H 02/06/17 06:20 Albumin 2.8 g/dl (3.4-5.0) L 02/06/17 06:20 Abnormal Lab Results 02/05/17 02/06/17 02/06/17 23:42 01:11 06:20 RBC 3.05 L Hgb 8.9 L Hct 27.5 L Monocytes % 13.5 H BUN Creatinine Random Glucose Hemoglobin A1c % Calcium Alkaline Phosphatase Albumin Crossmatch See Detail See Detail 02/06/17 02/06/17 06:20 06:20 RBC Hgb Hct Monocytes % BUN 62 H Creatinine 2.5 H Random Glucose 137 H Hemoglobin A1c % 8.8 H D Calcium 7.7 L Alkaline Phosphatase 185 H Albumin 2.8 L Crossmatch Imaging - Results Cat Scan: Report Reviewed (see above) Assessment/Plan 61 F with above history now with apparent abdominal distention. There is no real tympani on exam and I suspect the distention is secondary to abdominal wall edema secondary to R heart failure. Expect resolution when underlying problem resolves. She is having regular BMs.
[2017-02-06] MEDS ORDERED: PT OWN MED DRAWER 7, Y5N ONE (21:34)
[2017-02-06] MEDS: ATORVASTATIN CA 20 MG TABLET (FP) PO SCH (21:48)
[2017-02-06] MEDS ORDERED: FUROSEMIDE 40 MG/4 ML INJECTABLE VIAL IVPB ONE (22:30)
[2017-02-06 23:21] LABS: URINE CREATININE 35.1 mg/dL
[2017-02-07] MEDS: ALBUTEROL SO4 0.083% IH SOL 2.5 MG/3 ML VIAL.NEB. NEB SCH ×5 (00:20→23:03)
[2017-02-07] MEDS: INSULIN SLIDING SCALE (NOVOLOG) 1 VIAL SQ SCH ×4 (06:13→21:17)
[2017-02-07] MEDS: glyBURIDE 5 MG TABLET (UD) PO SCH (06:22)
[2017-02-07] MEDS: FUROSEMIDE 40 MG/4 ML INJECTABLE VIAL IVPB SCH (06:24)
[2017-02-07] MEDS ORDERED: PT OWN MED DRAWER 7, Y5N ONE (09:06)
[2017-02-07 09:18] LABS: ANION GAP 10 (8-16); CALCIUM 8.7 mg/dL (8.5-10.1); CO2 28 mmol/L (21-32); CREATININE 2.4 mg/dL (0.55-1.02); GLUCOSE,RANDOM 57 mg/dL (74-106)
[2017-02-07] MEDS: hydrALAZINE HCL 50 MG TABLET (FP) PO SCH ×2 (09:20→21:20)
[2017-02-07] MEDS: HEPARIN NA (PORCINE) 5,000 UNITS/ML 1ML VIAL SQ SCH ×2 (09:21→21:20)
[2017-02-07] MEDS: ASPIRIN 81 MG CHEWABLE TABLETS PO SCH (09:21)
[2017-02-07] MEDS: FOLIC ACID 1 MG TABLET (FP) PO SCH (09:21)
[2017-02-07] MEDS: PRAMIPEXOLE DIHYDROCHLORIDE 0.25 MG TABLET PO SCH (09:21)
[2017-02-07] MEDS: METOPROLOL SUCCINATE 25 MG TAB.SR.24H (FP) PO SCH (09:22)
--- NOTE | 2017-02-07 09:32 | PN ---
Progress Note, Physician History of Present Illness: Pt seen and examined at bedside. She is much more awake and alert today. She is out of bed to chair. She feels her abdomen is markedly improved. - Current Medication List Current Medications: Active Medications Acetaminophen (Tylenol -) 650 mg PO Q4H PRN PRN Reason: FEVER OR PAIN Albumin Human (Albumin Human 25% -) 25 gm IVPB BID ALDO Stop: 02/07/17 22:01 Last Admin: 02/06/17 21:49 Dose: 25 gm Albuterol Sulfate (Ventolin 0.083% Nebulizer Soln -) 1 amp NEB Q4H PRN PRN Reason: SHORT OF BREATH/WHEEZING Albuterol Sulfate (Ventolin 0.083% Nebulizer Soln -) 1 amp NEB Q6HPO [facility] Last Admin: 02/07/17 06:58 Dose: 1 amp Alprazolam (Xanax -) 0.5 mg PO HS PRN PRN Reason: ANXIETY Stop: 02/08/17 23:34 Aspirin (Asa -) 81 mg PO DAILY [facility] Last Admin: 02/07/17 09:21 Dose: 81 mg Atorvastatin Calcium (Lipitor -) 20 mg PO HS [facility] Last Admin: 02/06/17 21:48 Dose: 20 mg Folic Acid (Folic Acid -) 1 mg PO DAILY [facility] Last Admin: 02/07/17 09:21 Dose: 1 mg Furosemide (Lasix Injection -) 80 mg IVPB BIDLASIX [facility] Last Admin: 02/07/17 06:24 Dose: 80 mg Glyburide (Diabeta -) 5 mg PO DAILY@0700 [facility] Last Admin: 02/07/17 06:22 Dose: 5 mg Heparin Sodium (Porcine) (Heparin -) 5,000 unit SQ BID ALDO Last Admin: 02/07/17 09:21 Dose: 5,000 unit Hydralazine HCl (Apresoline -) 50 mg PO BID [facility] Last Admin: 02/07/17 09:20 Dose: 50 mg Insulin Aspart (Novolog Vial Sliding Scale -) 1 vial SQ ACHS [facility] PRN Reason: Protocol Last Admin: 02/07/17 06:13 Dose: Not Given Lisinopril (Prinivil) 2.5 mg PO DAILY [facility] Last Admin: 02/06/17 09:46 Dose: 2.5 mg Metoprolol Succinate (Toprol Xl -) 25 mg PO DAILY [facility] Last Admin: 02/07/17 09:22 Dose: 25 mg Pramipexole Dihydrochloride (Mirapex -) 0.25 mg PO DAILY [facility] Last Admin: 02/07/17 09:21 Dose: 0.25 mg - Objective Vital Signs: Vital Signs Temperature 98.3 F 02/07/17 06:55 Pulse Rate 79 02/07/17 06:55 Respiratory Rate 18 02/07/17 06:55 Blood Pressure 158/87 02/07/17 06:55 O2 Sat by Pulse Oximetry (%) 94 L 02/06/17 21:00 Constitutional: Yes: Calm Eyes: Yes: Conjunctiva Clear HENT: Yes: Atraumatic Neck: Yes: Supple Cardiovascular: Yes: S1, S2 Respiratory: Yes: CTA Bilaterally Gastrointestinal: Yes: Soft, Abdomen, Obese Genitourinary: Yes: WNL Musculoskeletal: Yes: WNL Edema: No Neurological: Yes: Oriented Psychiatric: Yes: Oriented Labs: CBC, BMP 02/06/17 06:20 02/07/17 06:30 Problem List - Problems (1) Abdominal pain Code(s): R10.9 - UNSPECIFIED ABDOMINAL PAIN (2) CHF (congestive heart failure) Code(s): I50.9 - HEART FAILURE, UNSPECIFIED Qualifiers: Congestive heart failure type: unspecified congestive heart failure type Congestive heart failure chronicity: acute on chronic Qualified Code(s ): I50.9 - Heart failure, unspecified (3) Edema Code(s): R60.9 - EDEMA, UNSPECIFIED Qualifiers: Edema type: generalized Qualified Code(s): R60.1 - Generalized edema (4) Symptomatic anemia Code(s): D64.9 - ANEMIA, UNSPECIFIED (5) Acute CHF (congestive heart failure) Code(s): I50.9 - HEART FAILURE, UNSPECIFIED (6) CKD (chronic kidney disease) Code(s): N18.9 - CHRONIC KIDNEY DISEASE, UNSPECIFIED Qualifiers: Chronic kidney disease stage: unspecified stage Qualified Code(s): N18.9 - Chronic kidney disease, unspecified (7) Diabetes mellitus Code(s): E11.9 - TYPE 2 DIABETES MELLITUS WITHOUT COMPLICATIONS (8) HTN (hypertension) Code(s): I10 - ESSENTIAL (PRIMARY) HYPERTENSION Assessment/Plan Current Medications Generic Name Dose Route Start Last Admin Trade Name Lois PRN Reason Stop Dose Admin Acetaminophen 650 mg 02/05/17 23:37 Tylenol - PO Q4H PRN FEVER OR PAIN Albumin Human 25 gm 02/06/17 10:00 02/06/17 21:49 Albumin Human 25% - IVPB 02/07/17 22:01 25 gm BID ALDO Administration Albuterol Sulfate 1 amp 02/05/17 23:35 Ventolin 0.083% Nebulizer Soln - NEB Q4H PRN SHORT OF BREATH/WHEEZING Albuterol Sulfate 1 amp 02/06/17 00:00 02/07/17 06:58 Ventolin 0.083% Nebulizer Soln - NEB 1 amp Q6HPO ALDO Administration Alprazolam 0.5 mg 02/05/17 23:35 Xanax - PO 02/08/17 23:34 HS PRN ANXIETY Aspirin 81 mg 02/06/17 10:00 02/07/17 09:21 Asa - PO 81 mg DAILY ALDO Administration Atorvastatin Calcium 20 mg 02/06/17 22:00 02/06/17 21:48 Lipitor - PO 20 mg HS ALDO Administration Folic Acid 1 mg 02/06/17 10:00 02/07/17 09:21 Folic Acid - PO 1 mg DAILY ALDO Administration Furosemide 80 mg 02/06/17 06:00 02/07/17 06:24 Lasix Injection - IVPB 80 mg BIDLASIX ALDO Administration Glyburide 5 mg 02/06/17 07:00 02/07/17 06:22 Diabeta - PO 5 mg DAILY@0700 ALDO Administration Heparin Sodium (Porcine) 5,000 unit 02/05/17 23:45 02/07/17 09:21 Heparin - SQ 5,000 unit BID ALDO Administration Hydralazine HCl 50 mg 02/06/17 10:00 02/07/17 09:20 Apresoline - PO 50 mg BID ALDO Administration Insulin Aspart 1 vial 02/06/17 07:00 02/07/17 06:13 Novolog Vial Sliding Scale - SQ Not Given ACHS [facility] Protocol Lisinopril 2.5 mg 02/06/17 10:00 02/06/17 09:46 Prinivil PO 2.5 mg DAILY ALDO Administration Metoprolol Succinate 25 mg 02/06/17 10:00 02/07/17 09:22 Toprol Xl - PO 25 mg DAILY ALDO Administration Pramipexole Dihydrochloride 0.25 mg 02/06/17 10:00 02/07/17 09:21 Mirapex - PO 0.25 mg DAILY ALDO Administration Impression 1. CKD 2. anemia 3. CHF 4. HTN 5. DM 6. hyperlipidemia 7. anxiety 8. uterine cancer 9. hx GI bleed Plan - renal function is stabilizing - cont lasix - cont anneliese - repeat labs in am - abdomen ultrasound reviewed (was done as outpt) and no hydro was seen - pt will follow with Dr Kay after discharge - monitor hg - will follow Dr Moore
[2017-02-07] MEDS: LISINOPRIL 5 MG TABLET (FP) PO SCH (09:35)
[2017-02-07 09:43] LABS: BASOPHIL 0.5 % (0-2.0); EOSINOPHIL 1.1 % (0-4.5); MCHC 32.7 g/dl (32.0-36.0); MEAN CELL VOLUME 88.8 fl (80-96); MEAN PLT VOLUME 9.1 fl (7.5-11.1); NEUTROPHILS 70.6 % (42.8-82.8); PLATELET COUNT 293 K/MM3 (134-434); RDW 15.4 % (11.6-15.6); WHITE BLOOD COUNT 7.4 K/mm3 (4.0-10.0)
--- NOTE | 2017-02-07 10:14 | PN ---
Progress Note, Physician History of Present Illness: FEELS BETTER - Current Medication List Current Medications: Active Medications Acetaminophen (Tylenol -) 650 mg PO Q4H PRN PRN Reason: FEVER OR PAIN Albumin Human (Albumin Human 25% -) 25 gm IVPB 0500,1300 [facility] Stop: 02/08/17 05:01 Albuterol Sulfate (Ventolin 0.083% Nebulizer Soln -) 1 amp NEB Q4H PRN PRN Reason: SHORT OF BREATH/WHEEZING Albuterol Sulfate (Ventolin 0.083% Nebulizer Soln -) 1 amp NEB Q6HPO [facility] Last Admin: 02/07/17 06:58 Dose: 1 amp Alprazolam (Xanax -) 0.5 mg PO HS PRN PRN Reason: ANXIETY Stop: 02/08/17 23:34 Aspirin (Asa -) 81 mg PO DAILY [facility] Last Admin: 02/07/17 09:21 Dose: 81 mg Atorvastatin Calcium (Lipitor -) 20 mg PO HS [facility] Last Admin: 02/06/17 21:48 Dose: 20 mg Folic Acid (Folic Acid -) 1 mg PO DAILY [facility] Last Admin: 02/07/17 09:21 Dose: 1 mg Furosemide (Lasix Injection -) 80 mg IVPB BIDLASIX [facility] Glyburide (Diabeta -) 5 mg PO DAILY@0700 [facility] Last Admin: 02/07/17 06:22 Dose: 5 mg Heparin Sodium (Porcine) (Heparin -) 5,000 unit SQ BID [facility] Last Admin: 02/07/17 09:21 Dose: 5,000 unit Hydralazine HCl (Apresoline -) 50 mg PO BID [facility] Last Admin: 02/07/17 09:20 Dose: 50 mg Insulin Aspart (Novolog Vial Sliding Scale -) 1 vial SQ ACHS [facility] PRN Reason: Protocol Last Admin: 02/07/17 06:13 Dose: Not Given Lisinopril (Prinivil) 2.5 mg PO DAILY [facility] Last Admin: 02/07/17 09:35 Dose: 2.5 mg Metoprolol Succinate (Toprol Xl -) 25 mg PO DAILY [facility] Last Admin: 02/07/17 09:22 Dose: 25 mg Pramipexole Dihydrochloride (Mirapex -) 0.25 mg PO DAILY [facility] Last Admin: 02/07/17 09:21 Dose: 0.25 mg - Objective Vital Signs: Vital Signs Temperature 98.3 F 02/07/17 06:55 Pulse Rate 79 02/07/17 06:55 Respiratory Rate 18 02/07/17 06:55 Blood Pressure 158/87 02/07/17 06:55 O2 Sat by Pulse Oximetry (%) 94 L 02/06/17 21:00 Cardiovascular: Yes: Regular Rate and Rhythm Respiratory: Yes: Regular, CTA Bilaterally Gastrointestinal: Yes: Normal Bowel Sounds, Soft, Distention (LESS) Labs: CBC, BMP 02/07/17 06:30 02/07/17 06:30 Problem List - Problems (1) CHF (congestive heart failure) Assessment/Plan: RT SIDED CONTINUE WITH IV LASIX AND ALBUMIN MONITOR LABS Code(s): I50.9 - HEART FAILURE, UNSPECIFIED Qualifiers: Congestive heart failure type: unspecified congestive heart failure type Congestive heart failure chronicity: acute on chronic Qualified Code(s ): I50.9 - Heart failure, unspecified (2) Symptomatic anemia Assessment/Plan: S/P PRBC MONITOR CBC Code(s): D64.9 - ANEMIA, UNSPECIFIED (3) CKD (chronic kidney disease) Assessment/Plan: MONITOR RENAL Code(s): N18.9 - CHRONIC KIDNEY DISEASE, UNSPECIFIED Qualifiers: Chronic kidney disease stage: unspecified stage Qualified Code(s): N18.9 - Chronic kidney disease, unspecified (4) COPD (chronic obstructive pulmonary disease) Assessment/Plan: NEBS Code(s): J44.9 - CHRONIC OBSTRUCTIVE PULMONARY DISEASE, UNSPECIFIED (5) Diabetes mellitus Assessment/Plan: BGM ENDO A1C Code(s): E11.9 - TYPE 2 DIABETES MELLITUS WITHOUT COMPLICATIONS (6) Abdominal pain Assessment/Plan: RESOLVED GI CONSULT NOTED CT SCAN --EDEMA Code(s): R10.9 - UNSPECIFIED ABDOMINAL PAIN
--- NOTE | 2017-02-07 10:37 | PN ---
Progress Note (short form) - Note Progress Note: s: no cp sob palps dizzy; still with abd bloating o: Vital Signs Period Temp Pulse Resp BP Sys/Padron Pulse Ox Last 24 Hr 98 F-99.3 F 79-82 18-20 151-158/81-87 94 NAD, calm JVD elevated, neck supple RRR nl s1, s2 no m/r/g + bs nt +mild distented/edematous no le e/c/c aaox3 no jaundice, diaphoresis Current Medications Generic Name Dose Route Start Last Admin Trade Name Freq PRN Reason Stop Dose Admin Acetaminophen 650 mg 02/05/17 23:37 Tylenol - PO Q4H PRN FEVER OR PAIN Albumin Human 25 gm 02/07/17 13:00 Albumin Human 25% - IVPB 02/08/17 05:01 0500,1300 ALDO Albuterol Sulfate 1 amp 02/05/17 23:35 Ventolin 0.083% Nebulizer Soln - NEB Q4H PRN SHORT OF BREATH/WHEEZING Albuterol Sulfate 1 amp 02/06/17 00:00 02/07/17 06:58 Ventolin 0.083% Nebulizer Soln - NEB 1 amp Q6HPO ALDO Administration Alprazolam 0.5 mg 02/05/17 23:35 Xanax - PO 02/08/17 23:34 HS PRN ANXIETY Aspirin 81 mg 02/06/17 10:00 02/07/17 09:21 Asa - PO 81 mg DAILY [facility]DO Administration Atorvastatin Calcium 20 mg 02/06/17 22:00 02/06/17 21:48 Lipitor - PO 20 mg HS ALDO Administration Folic Acid 1 mg 02/06/17 10:00 02/07/17 09:21 Folic Acid - PO 1 mg DAILY [facility]DO Administration Furosemide 80 mg 02/07/17 10:11 Lasix Injection - IVPB BIDLASIX ALDO Glyburide 5 mg 02/06/17 07:00 02/07/17 06:22 Diabeta - PO 5 mg DAILY@0700 [facility]DO Administration Heparin Sodium (Porcine) 5,000 unit 02/05/17 23:45 02/07/17 09:21 Heparin - SQ 5,000 unit BID [facility]DO Administration Hydralazine HCl 50 mg 02/06/17 10:00 02/07/17 09:20 Apresoline - PO 50 mg BID ALDO Administration Insulin Aspart 1 vial 02/06/17 07:00 02/07/17 06:13 Novolog Vial Sliding Scale - SQ Not Given ACHS [facility] Protocol Lisinopril 2.5 mg 02/06/17 10:00 02/07/17 09:35 Prinivil PO 2.5 mg DAILY [facility]DO Administration Metoprolol Succinate 25 mg 02/06/17 10:00 02/07/17 09:22 Toprol Xl - PO 25 mg DAILY [facility] Administration Pramipexole Dihydrochloride 0.25 mg 02/06/17 10:00 02/07/17 09:21 Mirapex - PO 0.25 mg DAILY ALDO Administration CBC, BMP 02/07/17 06:30 02/07/17 06:30 eKG: SR, non-specific t wave abnormalities CXR: clear Abd CT: mild distension of IVC. subcutaneous edema, hepatomegaly. Echo 06/2016: mod LVE, mod decr EF (no EF reported); mild RVE and mild HK; mild L /ANISH; valves WNL; no RVSP LHC 06/29: nl EDP; EF 40% (global); 50-60% OM1 (normal FFR); mild dz others a/p: 61 yo smoker with h/o mild systolic dysfunction, HTN, HL, pHTN, mod FLORA on cpap, CKD (bline CR 1.3-1.4), PAD, DM h/o GIB, presents with abdominal distension x 2 weeks. acute HF exacerbation - Known biventricular cardiomyopathy/pHTN. Currently with possible acute RHF exacerbation. URI as trigger? - no signs acs - home diuretic regimen lasix 80 mg po bid. Getting diuresis with lasix 80 mg IV bid, cont same. - daily standing weight, bmp, i/o - mgm't of underlying flora and pulmonary disease per pmd - con't hydralazine, metoprolol, lisinopril Mod FLORA - con't cpap HTN - con't hydralazine, metoprolol, lisinopril. Acute on chronic CKD - cr slightly better today, con't to monitor with diuresis. HL - con't statin
[2017-02-07] MEDS ORDERED: FUROSEMIDE 40 MG/4 ML INJECTABLE VIAL IVPB SCH (11:00)
[2017-02-07 11:36] LABS: ALBUMIN 3.3 g/dl (3.4-5.0); ALK PHOS 194 U/L (45-117); BILIRUBIN,TOTAL 1.1 mg/dL (0.2-1.0); SGPT/ALT 23 U/L (12-78); TOT PROT 7.1 g/dl (6.4-8.2)
[2017-02-07 11:59] LABS: SGOT/AST 23 U/L (15-37)
[2017-02-07] MEDS: ALBUMIN HUMAN 25% 100 ML VIAL IVPB SCH ×2 (13:00→13:07)
--- NOTE | 2017-02-07 19:41 | CONSULT ---
Consult Consult Specialty:: endocrine Referred by:: dr.[email or web address] jones Reason for Consultation:: diabetes mellitus /ckd - History of Present Illness Chief Complaint: difficulty breathing cough dyspnea high sugar History of Present Illness: 61 year old female, with a significant past medical history of anemia, asthma, uterine CA, COPD, diabetes, HTN and HLD, who presents to the emergency department with abdominal pain/bloating, constipation and shortness of breath. She describes her abdominal pain as a bloating sensation, ranging from mild to moderate, without radiation or modifying factors. has elevated sugars despite diet and poor appetite - Past Medical History Cardio/Vascular: Yes: CHF, HTN, Hyperlipdemia, Pulmonary Hypertension Pulmonary: Yes: Asthma, Sleep Apnea (on BIPAP at night) Gastrointestinal: Yes: GI Bleed (see HPI), Other (had EGD and colono 12/31, ) Renal/: Yes: Renal Failure, Renal Inusuff ...LMP: 11/17/07 ...: No Endocrine: Yes: Diabetes Mellitus (uncontrolled) - Alcohol/Substance Use Hx Alcohol Use: No - Smoking History Smoking history: Current every day smoker Have you smoked in the past 12 months: Yes Aproximately how many cigarettes per day: 10 - Social History ADL: Independent History of Recent Travel: No Home Medications - Allergies Allergies/Adverse Reactions: Allergies Allergy/AdvReac Type Severity Reaction Status Date / Time No Known Allergies Allergy Verified 02/05/17 17:01 - Home Medications Home Medications: Ambulatory Orders Aspirin 81 mg PO DAILY 01/18/14 Albuterol 0.083% Nebulizer Laura [Ventolin 0.083% Nebulizer Soln -] 1 neb NEB Q4H PRN #120 vial 11/19/14 Alprazolam [Xanax] 0.5 mg PO HS PRN #15 tablet 11/19/14 Hydralazine HCl [Apresoline -] 50 mg PO BID #60 tablet 11/19/14 Metoprolol Succinate [Toprol XL -] 25 mg PO DAILY #30 tab.sr.24h 11/19/14 Folic Acid 1 mg PO DAILY 01/09/16 Furosemide [Lasix -] 80 mg PO BID@0600,1400 #60 tablet 01/11/16 Glyburide 5 mg PO DAILY 09/06/16 Atorvastatin Ca [Lipitor] 20 mg PO HS 11/25/16 Iron Polysaccharides [Niferex-150 -] 150 mg PO DAILY 11/25/16 Lisinopril [Zestril] 2.5 mg PO DAILY 11/26/16 Metolazone 2.5 mg PO DAILY 11/26/16 Pramipexole Di-HCl [Mirapex] 0.25 mg PO DAILY 11/26/16 Review of Systems - Review of Systems Constitutional: reports: Lethargy, Weakness Eyes: reports: No Symptoms HENT: reports: Ear Pain, Nasal Congestion Neck: reports: Decreased ROM Cardiovascular: reports: Shortness of Breath Respiratory: reports: Exercise Intolerance, Orthopnea, SOB on Exertion Gastrointestinal: reports: Bloating, Constipation, Indigestion Genitourinary: reports: No Symptoms Breasts: reports: No Symptoms Reported Musculoskeletal: reports: Joint Pain, Joint Swelling, Muscle Pain, Muscle Cramps , Muscle Weakness Integumentary: reports: Lesions Neurological: reports: Numbness, Unsteady Gait, Weakness Endocrine: reports: Excessive Sweating, Unexplained Weight Gain Physical Exam Vital Signs: Vital Signs Temperature 97.9 F 02/07/17 18:00 Pulse Rate 75 02/07/17 18:00 Respiratory Rate 18 02/07/17 18:00 Blood Pressure 155/73 02/07/17 18:00 O2 Sat by Pulse Oximetry (%) 95 02/07/17 09:00 Constitutional: Yes: Anxious Eyes: Yes: EOM Intact HENT: Yes: Normocephalic Neck: Yes: Trachea Midline Cardiovascular: Yes: Regular Rate and Rhythm Respiratory: Yes: Rhonchi, SOB, SOB on Exertion, Tachypnea Gastrointestinal: Yes: Normal Bowel Sounds, Abdomen, Obese ...Rectal Exam: Yes: Deferred Renal/: Yes: WNL Breast(s): Yes: WNL Musculoskeletal: Yes: Muscle Pain, Muscle Weakness Extremities: Yes: WNL Edema: Yes Peripheral Pulses WNL: Yes Integumentary: Yes: Venous Stasis Changes Labs: CBC, BMP 02/07/17 06:30 02/07/17 06:30 Assessment/Plan Current Active Problems Abdominal pain (Acute) CHF (congestive heart failure) (Acute) Edema (Acute) Symptomatic anemia (Acute) diabetes mellitus uncontrolled hyperglycemia ckd Abnormal Lab Results 02/06/17 02/07/17 02/07/17 18:00 06:30 06:30 RBC 3.31 L Hgb 9.6 L Hct 29.4 L Monocytes % 17.1 H BUN 64 H Creatinine 2.4 H Random Glucose 57 L D Total Bilirubin 1.1 H D Alkaline Phosphatase 194 H Albumin 3.3 L U Random Total Protein 43 H Laboratory Results - last 24 hr 02/06/17 02/06/17 02/06/17 18:00 18:00 18:00 WBC RBC Hgb Hct MCV MCHC RDW Plt Count MPV Neutrophils % Lymphocytes % Monocytes % Eosinophils % Basophils % Sodium Potassium Chloride Carbon Dioxide Anion Gap BUN Creatinine Creat Clearance w eGFR POC Glucometer Random Glucose Calcium Total Bilirubin AST ALT Alkaline Phosphatase Total Protein Albumin U Random Total Protein 43 H Ur Random Sodium 107 Ur Random Potassium 8.6 Ur Random Chloride 109 Ur Random Urea Nitrogn 237 Urine Creatinine Cancelled 35.1 Protein/Creatinin Ratio 1.22 02/06/17 02/07/17 02/07/17 21:01 05:30 06:30 WBC RBC Hgb Hct MCV MCHC RDW Plt Count MPV Neutrophils % Lymphocytes % Monocytes % Eosinophils % Basophils % Sodium 141 Potassium 3.8 Chloride 103 Carbon Dioxide 28 Anion Gap 10 BUN 64 H Creatinine 2.4 H Creat Clearance w eGFR POC Glucometer 167 83 Random Glucose 57 L D Calcium 8.7 Total Bilirubin 1.1 H D AST 23 D ALT 23 Alkaline Phosphatase 194 H Total Protein 7.1 Albumin 3.3 L U Random Total Protein Ur Random Sodium Ur Random Potassium Ur Random Chloride Ur Random Urea Nitrogn Urine Creatinine Protein/Creatinin Ratio 02/07/17 02/07/17 02/07/17 06:30 06:30 12:08 WBC 7.4 RBC 3.31 L Hgb 9.6 L Hct 29.4 L MCV 88.8 MCHC 32.7 RDW 15.4 Plt Count 293 MPV 9.1 Neutrophils % 70.6 Lymphocytes % 10.7 Monocytes % 17.1 H Eosinophils % 1.1 Basophils % 0.5 Sodium Cancelled Potassium Cancelled Chloride Cancelled Carbon Dioxide Cancelled Anion Gap Cancelled BUN Cancelled Creatinine Cancelled Creat Clearance w eGFR Cancelled POC Glucometer 119 Random Glucose Cancelled Calcium Cancelled Total Bilirubin Cancelled AST Cancelled ALT Cancelled Alkaline Phosphatase Cancelled Total Protein Cancelled Albumin Cancelled U Random Total Protein Ur Random Sodium Ur Random Potassium Ur Random Chloride Ur Random Urea Nitrogn Urine Creatinine Protein/Creatinin Ratio 02/07/17 02/07/17 15:43 17:32 WBC RBC Hgb Hct MCV MCHC RDW Plt Count MPV Neutrophils % Lymphocytes % Monocytes % Eosinophils % Basophils % Sodium Potassium Chloride Carbon Dioxide Anion Gap BUN Creatinine Creat Clearance w eGFR POC Glucometer 138 123 Random Glucose Calcium Total Bilirubin AST ALT Alkaline Phosphatase Total Protein Albumin U Random Total Protein Ur Random Sodium Ur Random Potassium Ur Random Chloride Ur Random Urea Nitrogn Urine Creatinine Protein/Creatinin Ratio plan: bgm qid novolog coverage continue glyburide 5 mg daily ck hb a1c Current Medications Generic Name Dose Route Start Last Admin Trade Name Freq PRN Reason Stop Dose Admin Acetaminophen 650 mg 02/05/17 23:37 Tylenol - PO Q4H PRN FEVER OR PAIN Albumin Human 25 gm 02/07/17 13:00 02/07/17 13:00 Albumin Human 25% - IVPB 02/08/17 05:01 25 gm 0500,1300 ALDO Administration Albuterol Sulfate 1 amp 02/05/17 23:35 Ventolin 0.083% Nebulizer Soln - NEB Q4H PRN SHORT OF BREATH/WHEEZING Albuterol Sulfate 1 amp 02/06/17 00:00 02/07/17 18:18 Ventolin 0.083% Nebulizer Soln - NEB 1 amp Q6HPO ALDO Administration Alprazolam 0.5 mg 02/05/17 23:35 Xanax - PO 02/08/17 23:34 HS PRN ANXIETY Aspirin 81 mg 02/06/17 10:00 02/07/17 09:21 Asa - PO 81 mg DAILY [facility]DO Administration Atorvastatin Calcium 20 mg 02/06/17 22:00 02/06/17 21:48 Lipitor - PO 20 mg HS ALDO Administration Folic Acid 1 mg 02/06/17 10:00 02/07/17 09:21 Folic Acid - PO 1 mg DAILY [facility]DO Administration Furosemide 80 mg 02/08/17 06:00 Lasix Injection - IVPB BID@0600,1400 [facility]DO Glyburide 5 mg 02/06/17 07:00 02/07/17 06:22 Diabeta - PO 5 mg DAILY@0700 [facility] Administration Heparin Sodium (Porcine) 5,000 unit 02/05/17 23:45 02/07/17 09:21 Heparin - SQ 5,000 unit BID ALDO Administration Hydralazine HCl 50 mg 02/06/17 10:00 02/07/17 09:20 Apresoline - PO 50 mg BID ALDO Administration Insulin Aspart 1 vial 02/06/17 07:00 02/07/17 17:48 Novolog Vial Sliding Scale - SQ Not Given ACHS [facility] Protocol Lisinopril 2.5 mg 02/06/17 10:00 02/07/17 09:35 Prinivil PO 2.5 mg DAILY [facility] Administration Metoprolol Succinate 25 mg 02/06/17 10:00 02/07/17 09:22 Toprol Xl - PO 25 mg DAILY [facility]DO Administration Pramipexole Dihydrochloride 0.25 mg 02/06/17 10:00 02/07/17 09:21 Mirapex - PO 0.25 mg DAILY ALDO Administration
[2017-02-07] MEDS: ATORVASTATIN CA 20 MG TABLET (FP) PO SCH (21:20)
[2017-02-08] MEDS ORDERED: PT OWN MED DRAWER 7, Y5N ONE ×2 (04:16→09:02)
[2017-02-08] MEDS: ALBUMIN HUMAN 25% 100 ML VIAL IVPB SCH (04:30)
[2017-02-08] MEDS: FUROSEMIDE 40 MG/4 ML INJECTABLE VIAL IVPB SCH ×2 (05:02→14:07)
[2017-02-08] MEDS: glyBURIDE 5 MG TABLET (UD) PO SCH (06:16)
[2017-02-08] MEDS: INSULIN SLIDING SCALE (NOVOLOG) 1 VIAL SQ SCH ×4 (06:22→22:03)
[2017-02-08] MEDS: ALBUTEROL SO4 0.083% IH SOL 2.5 MG/3 ML VIAL.NEB. NEB SCH ×4 (06:25→23:05)
[2017-02-08 07:31] LABS: BASOPHIL 0.5 % (0-2.0); EOSINOPHIL 1.4 % (0-4.5); MCH 28.9 pg (25.7-33.7); MCHC 32.4 g/dl (32.0-36.0); MEAN CELL VOLUME 89.4 fl (80-96); MEAN PLT VOLUME 8.9 fl (7.5-11.1); NEUTROPHILS 65.9 % (42.8-82.8); PLATELET COUNT 313 K/MM3 (134-434); RDW 15.6 % (11.6-15.6); WHITE BLOOD COUNT 6.5 K/mm3 (4.0-10.0)
[2017-02-08 07:55] LABS: ALBUMIN 3.3 g/dl (3.4-5.0); CALCIUM 8.7 mg/dL (8.5-10.1); CREATININE 2.4 mg/dL (0.55-1.02)
[2017-02-08 08:04] LABS: BILIRUBIN,TOTAL 0.8 mg/dL (0.2-1.0); FREE T4 1.29 ng/dl (0.76-1.46); THYROID STIMULATING HORMONE 1.06 uIU/ml (0.358-3.74)
--- NOTE | 2017-02-08 08:59 | PN ---
Progress Note, Physician Chief Complaint: acute chf History of Present Illness: sob improved; abd girth has lessened no cp, leg swelling + cigs - Current Medication List Current Medications: Active Medications Acetaminophen (Tylenol -) 650 mg PO Q4H PRN PRN Reason: FEVER OR PAIN Albuterol Sulfate (Ventolin 0.083% Nebulizer Soln -) 1 amp NEB Q4H PRN PRN Reason: SHORT OF BREATH/WHEEZING Albuterol Sulfate (Ventolin 0.083% Nebulizer Soln -) 1 amp NEB Q6HPO [facility] Last Admin: 02/08/17 06:25 Dose: 1 amp Alprazolam (Xanax -) 0.5 mg PO HS PRN PRN Reason: ANXIETY Stop: 02/08/17 23:34 Aspirin (Asa -) 81 mg PO DAILY [facility] Last Admin: 02/07/17 09:21 Dose: 81 mg Atorvastatin Calcium (Lipitor -) 20 mg PO HS [facility] Last Admin: 02/07/17 21:20 Dose: 20 mg Folic Acid (Folic Acid -) 1 mg PO DAILY [facility] Last Admin: 02/07/17 09:21 Dose: 1 mg Furosemide (Lasix Injection -) 80 mg IVPB BID@0600,1400 [facility] Last Admin: 02/08/17 05:02 Dose: 80 mg Glyburide (Diabeta -) 5 mg PO DAILY@0700 [facility] Last Admin: 02/08/17 06:16 Dose: 5 mg Heparin Sodium (Porcine) (Heparin -) 5,000 unit SQ BID [facility] Last Admin: 02/07/17 21:20 Dose: 5,000 unit Hydralazine HCl (Apresoline -) 50 mg PO BID [facility] Last Admin: 02/07/17 21:20 Dose: 50 mg Insulin Aspart (Novolog Vial Sliding Scale -) 1 vial SQ ACHS [facility] PRN Reason: Protocol Last Admin: 02/08/17 06:22 Dose: Not Given Lisinopril (Prinivil) 2.5 mg PO DAILY [facility] Last Admin: 02/07/17 09:35 Dose: 2.5 mg Metoprolol Succinate (Toprol Xl -) 25 mg PO DAILY [facility] Last Admin: 02/07/17 09:22 Dose: 25 mg Pramipexole Dihydrochloride (Mirapex -) 0.25 mg PO DAILY [facility] Last Admin: 02/07/17 09:21 Dose: 0.25 mg - Objective Vital Signs: Vital Signs Temperature 99.6 F 02/08/17 06:00 Pulse Rate 77 02/08/17 06:00 Respiratory Rate 20 02/08/17 06:00 Blood Pressure 161/73 02/08/17 06:00 O2 Sat by Pulse Oximetry (%) 98 02/08/17 04:45 Constitutional: Yes: No Distress, Calm Eyes: No: Sclera Icterus HENT: No: Nasal Congestion Cardiovascular: Yes: Regular Rate and Rhythm, JVD (4-6cm), S1, S2, Other (PMI non diplaced). No: Gallop, Murmur Respiratory: Yes: CTA Bilaterally. No: Accessory Muscle Use, Rales, Wheezes Gastrointestinal: Yes: Normal Bowel Sounds, Soft. No: Tenderness Musculoskeletal: Yes: Other (No kyphosis) Extremities: No: Cold, Cyanosis Edema: No Integumentary: No: Jaundice Neurological: Yes: Alert, Oriented (x3) Psychiatric: No: Agitated Labs: CBC, BMP 02/08/17 06:05 02/08/17 06:05 - ....Imaging EKG: Other Assessment/Plan CXR: clear Abd CT: mild distension of IVC. subcutaneous edema, hepatomegaly. Echo 06/2016: mod LVE, mod decr EF (no EF reported); mild RVE and mild HK; mild L /ANISH; valves WNL; no RVSP LHC 06/29: nl EDP; EF 40% (global); 50-60% OM1 (normal FFR); mild dz others a/p: 61 yo smoker with h/o mild systolic dysfunction, HTN, HL, pHTN, mod PARVEZ on cpap, CKD (bline CR 1.3-1.4), PAD, DM h/o GIB, presents with abdominal distension x 2 weeks. acute HF exacerbation - Known biventricular cardiomyopathy/pHTN. - Currently with acute RHF exacerbation, no signs of left sided failure (? URI was trigger): abd distension, sob, dilated IVC, hepatomegaly, subcutaneous edema on CT - trigger was likely dietary noncompliance (admits to pizza and twice TV dinners with 1000mg sodium each) - no signs acs - home diuretic regimen lasix 80 mg po bid, receiving lasix 80 IV bid here. - dry wt uncertain--probably 205 where she's been recently without JVD/edema or chf sx's (up from 190 several months ago but suspect the increase was more likely caloric) - 02/08: wt trend here: 214-->205, remains with JVD - bun up slightly, creat stable 2.4-2.5 here - cont same lasix - con't hydralazine, metoprolol - h/o hyperkalemia, however lisin low dose added back recently (2.5mg qd) due to worsening in LVEF--K has been stable on outpt regimen of standing kayexalate (takes QOD) - will try incr lisin to 2.5 bid--watch K - incr metopr 25 bid--watch for worsening wheezing - cont same meds, monitor labs; sees digiorno for renal for K issues Mod PARVEZ - con't cpap, complying fairly well at home HTN - bp's mild-to-mod elevated here - con't hydralazine, metoprolol, lisinopril. Acute on chronic CKD - creat here slightly above outpt baseline but stable--? cardiorenal syndrome, ? new baseline - cont daily labs for now with ongoing diuresis asthma - stable HL - con't statin anemia, iron-deficient - chronic, follows closely with dr white/candice/shasta as outpt - counts stable here
[2017-02-08] MEDS: LISINOPRIL 5 MG TABLET (FP) PO SCH ×2 (09:09→21:46)
[2017-02-08] MEDS: hydrALAZINE HCL 50 MG TABLET (FP) PO SCH ×2 (09:09→21:47)
[2017-02-08] MEDS: PRAMIPEXOLE DIHYDROCHLORIDE 0.25 MG TABLET PO SCH (09:12)
[2017-02-08] MEDS: ASPIRIN 81 MG CHEWABLE TABLETS PO SCH (09:12)
[2017-02-08] MEDS: METOPROLOL SUCCINATE 25 MG TAB.SR.24H (FP) PO SCH ×2 (09:12→21:46)
[2017-02-08] MEDS: HEPARIN NA (PORCINE) 5,000 UNITS/ML 1ML VIAL SQ SCH ×2 (09:12→21:48)
[2017-02-08] MEDS: FOLIC ACID 1 MG TABLET (FP) PO SCH (09:12)
--- NOTE | 2017-02-08 09:52 | PN ---
Progress Note, Physician Chief Complaint: ON O2 MASK IN [employer] - Current Medication List Current Medications: Active Medications Acetaminophen (Tylenol -) 650 mg PO Q4H PRN PRN Reason: FEVER OR PAIN Albuterol Sulfate (Ventolin 0.083% Nebulizer Soln -) 1 amp NEB Q4H PRN PRN Reason: SHORT OF BREATH/WHEEZING Albuterol Sulfate (Ventolin 0.083% Nebulizer Soln -) 1 amp NEB Q6HPO [facility] Last Admin: 02/08/17 06:25 Dose: 1 amp Alprazolam (Xanax -) 0.5 mg PO HS PRN PRN Reason: ANXIETY Stop: 02/08/17 23:34 Aspirin (Asa -) 81 mg PO DAILY [facility] Last Admin: 02/08/17 09:12 Dose: 81 mg Atorvastatin Calcium (Lipitor -) 20 mg PO HS [facility] Last Admin: 02/07/17 21:20 Dose: 20 mg Folic Acid (Folic Acid -) 1 mg PO DAILY [facility] Last Admin: 02/08/17 09:12 Dose: 1 mg Furosemide (Lasix Injection -) 80 mg IVPB BID@0600,1400 [facility] Last Admin: 02/08/17 05:02 Dose: 80 mg Glyburide (Diabeta -) 5 mg PO DAILY@0700 [facility] Last Admin: 02/08/17 06:16 Dose: 5 mg Heparin Sodium (Porcine) (Heparin -) 5,000 unit SQ BID [facility] Last Admin: 02/08/17 09:12 Dose: 5,000 unit Hydralazine HCl (Apresoline -) 50 mg PO BID [facility] Last Admin: 02/08/17 09:09 Dose: 50 mg Insulin Aspart (Novolog Vial Sliding Scale -) 1 vial SQ ACHS [facility] PRN Reason: Protocol Last Admin: 02/08/17 06:22 Dose: Not Given Lisinopril (Prinivil) 2.5 mg PO DAILY [facility] Last Admin: 02/08/17 09:09 Dose: 2.5 mg Metoprolol Succinate (Toprol Xl -) 25 mg PO DAILY [facility] Last Admin: 02/08/17 09:12 Dose: 25 mg Pramipexole Dihydrochloride (Mirapex -) 0.25 mg PO DAILY [facility] Last Admin: 02/08/17 09:12 Dose: 0.25 mg - Objective Vital Signs: Vital Signs Temperature 99.6 F 03/25/17 06:00 Pulse Rate 77 02/08/17 06:00 Respiratory Rate 20 02/08/17 06:00 Blood Pressure 161/73 02/08/17 06:00 O2 Sat by Pulse Oximetry (%) 98 02/08/17 04:45 Constitutional: Yes: Calm Cardiovascular: Yes: WNL Respiratory: Yes: Diminished, Wheezes Gastrointestinal: Yes: Normal Bowel Sounds, Soft Edema: No Labs: CBC, BMP 02/08/17 06:05 02/08/17 06:05 Problem List - Problems (1) Abdominal pain Code(s): R10.9 - UNSPECIFIED ABDOMINAL PAIN (2) CHF (congestive heart failure) Code(s): I50.9 - HEART FAILURE, UNSPECIFIED Qualifiers: Congestive heart failure type: unspecified congestive heart failure type Congestive heart failure chronicity: acute on chronic Qualified Code(s ): I50.9 - Heart failure, unspecified (3) Edema Code(s): R60.9 - EDEMA, UNSPECIFIED Qualifiers: Edema type: generalized Qualified Code(s): R60.1 - Generalized edema (4) COPD (chronic obstructive pulmonary disease) Code(s): J44.9 - CHRONIC OBSTRUCTIVE PULMONARY DISEASE, UNSPECIFIED (5) Diabetes mellitus Code(s): E11.9 - TYPE 2 DIABETES MELLITUS WITHOUT COMPLICATIONS Assessment/Plan (1) CHF (congestive heart failure) Assessment/Plan: CONTINUE WITH IV LASIX AND ALBUMIN MONITOR LABS CARDIO ON CASE Code(s): I50.9 - HEART FAILURE, UNSPECIFIED Qualifiers: Congestive heart failure type: unspecified congestive heart failure type Congestive heart failure chronicity: acute on chronic Qualified Code(s ): I50.9 - Heart failure, unspecified (2) Symptomatic anemia Assessment/Plan: S/P PRBC MONITOR CBC -> HGB 10 Code(s): D64.9 - ANEMIA, UNSPECIFIED (3) CKD (chronic kidney disease) Assessment/Plan: MONITOR STABLE RENAL Code(s): N18.9 - CHRONIC KIDNEY DISEASE, UNSPECIFIED Qualifiers: Chronic kidney disease stage: unspecified stage Qualified Code(s): N18.9 - Chronic kidney disease, unspecified (4) COPD (chronic obstructive pulmonary disease) Assessment/Plan: NEBS Code(s): J44.9 - CHRONIC OBSTRUCTIVE PULMONARY DISEASE, UNSPECIFIED (5) Diabetes mellitus Assessment/Plan: BGM ENDO ON CASE A1C -> 9 BGM/ISS HAD BS 40 -> STOP GLYBURIDE Code(s): E11.9 - TYPE 2 DIABETES MELLITUS WITHOUT COMPLICATIONS (6) Abdominal pain Assessment/Plan: RESOLVED GI CONSULT NOTED CT SCAN --EDEMA Code(s): R10.9 - UNSPECIFIED 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
--- NOTE | 2017-02-08 11:25 | PN ---
Progress Note (short form) - Note Progress Note: RENAL Pt seen and examined had no complaints says she follwos with Dr Kay she was hypoglycemic Temp Pulse Resp BP Pulse Ox 98.8 F 80 20 180/74 93 L 02/08/17 10:00 02/08/17 10:00 02/08/17 10:00 02/08/17 10:00 02/08/17 09:38 PE awake and alert comfortable lungs clear cvs s1s2 rr abd soft ext no edema neuro a+ox3 Current Medications Generic Name Dose Route Start Last Admin Trade Name Freq PRN Reason Stop Dose Admin Acetaminophen 650 mg 02/05/17 23:37 Tylenol - PO Q4H PRN FEVER OR PAIN Albuterol Sulfate 1 amp 02/05/17 23:35 Ventolin 0.083% Nebulizer Soln - NEB Q4H PRN SHORT OF BREATH/WHEEZING Albuterol Sulfate 1 amp 02/06/17 00:00 02/08/17 06:25 Ventolin 0.083% Nebulizer Soln - NEB 1 amp Q6HPO [facility] Administration Alprazolam 0.5 mg 02/05/17 23:35 Xanax - PO 02/08/17 23:34 HS PRN ANXIETY Aspirin 81 mg 02/06/17 10:00 02/08/17 09:12 Asa - PO 81 mg DAILY [facility] Administration Atorvastatin Calcium 20 mg 02/06/17 22:00 02/07/17 21:20 Lipitor - PO 20 mg HS [facility] Administration Folic Acid 1 mg 02/06/17 10:00 02/08/17 09:12 Folic Acid - PO 1 mg DAILY [facility] Administration Furosemide 80 mg 02/08/17 06:00 02/08/17 05:02 Lasix Injection - IVPB 80 mg BID@0600,1400 [facility] Administration Heparin Sodium (Porcine) 5,000 unit 02/05/17 23:45 02/08/17 09:12 Heparin - SQ 5,000 unit BID [facility] Administration Hydralazine HCl 50 mg 02/06/17 10:00 02/08/17 09:09 Apresoline - PO 50 mg BID [facility] Administration Insulin Aspart 1 vial 02/06/17 07:00 02/08/17 06:22 Novolog Vial Sliding Scale - SQ Not Given ACHS [facility] Protocol Lisinopril 2.5 mg 03/25/17 22:00 Prinivil PO BID [facility] Metoprolol Succinate 25 mg 02/08/17 22:00 Toprol Xl - PO BID [facility] Pramipexole Dihydrochloride 0.25 mg 02/06/17 10:00 02/08/17 09:12 Mirapex - PO 0.25 mg DAILY [facility] Administration CBC, BMP 02/08/17 06:05 02/08/17 06:05 Impression 1. CKD 2. anemia 3. CHF 4. HTN 5. DM 6. hyperlipidemia 7. anxiety 8. uterine cancer 9. hx GI bleed 10. hypoglycemia may be due to long acting effect of glyburide which she says she has been on Plan - would use glipizide instead of glyburide - cont lasix - cont anneliese - repeat labs in am - pt will follow with Dr Kay after discharge - monitor hg MV
--- NOTE | 2017-02-08 13:34 | PN ---
Progress Note (short form) - Note Progress Note: PULMONARY CONSULTATION DICTATED 02/08/17 IMP DECOMPENASTED CHF,RHF CARDIOMYOPTHY PULMONARY HTN H/O ASTHMA ACUTE ON CHRONIC RENAL FAILURE HTN DM ANEMIA OSAS PLAN IV LASIX INHALED BRONCHODILATORS SUPPLEMENTAL O2 DAILY WTS F/U CHEST X-RAYS MONITOR LYTES,RENAL FUNCTION CPAP AT NIGHT DR HARO Problem List - Problems (1) Abdominal pain Code(s): R10.9 - UNSPECIFIED ABDOMINAL PAIN (2) CHF (congestive heart failure) Code(s): I50.9 - HEART FAILURE, UNSPECIFIED Qualifiers: Congestive heart failure type: unspecified congestive heart failure type Congestive heart failure chronicity: acute on chronic Qualified Code(s ): I50.9 - Heart failure, unspecified (3) Edema Code(s): R60.9 - EDEMA, UNSPECIFIED Qualifiers: Edema type: generalized Qualified Code(s): R60.1 - Generalized edema (4) Acute CHF (congestive heart failure) Code(s): I50.9 - HEART FAILURE, UNSPECIFIED (5) Anemia Code(s): D64.9 - ANEMIA, UNSPECIFIED Qualifiers: 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 Qualified Code(s): D50.0 - Iron deficiency anemia secondary to blood loss ( chronic) (6) Asthma Code(s): J45.909 - UNSPECIFIED ASTHMA, UNCOMPLICATED (7) CKD (chronic kidney disease) Code(s): N18.9 - CHRONIC KIDNEY DISEASE, UNSPECIFIED Qualifiers: Chronic kidney disease stage: unspecified stage Qualified Code(s): N18.9 - Chronic kidney disease, unspecified (8) Diabetes mellitus Code(s): E11.9 - TYPE 2 DIABETES MELLITUS WITHOUT COMPLICATIONS (9) HTN (hypertension) Code(s): I10 - ESSENTIAL (PRIMARY) HYPERTENSION (10) Pulmonary hypertension Code(s): I27.2 - OTHER SECONDARY PULMONARY HYPERTENSION (11) Smoker unmotivated to quit Code(s): F17.210 - NICOTINE DEPENDENCE, CIGARETTES, UNCOMPLICATED (12) Sleep apnea, obstructive Code(s): G47.33 - OBSTRUCTIVE SLEEP APNEA (ADULT) (PEDIATRIC)
--- NOTE | 2017-02-08 14:39 | CONS ---
DATE OF CONSULTATION: 02/07/2017 PULMONARY CONSULTATION REFERRING PHYSICIAN: Anyi Mcgrath MD HISTORY OF PRESENT ILLNESS: The patient is a 61-year-old female known to me from previous hospitalizations with a past medical history of systolic CHF, hypertension, pulmonary hypertension, hyperlipidemia, obstructive sleep apnea on CPAP at 13, chronic kidney disease, diabetes mellitus, peripheral arterial disease, history of GI bleed, history of tobacco use currently still smoking, asthma admitted to [facility] with the complaint of a 2-week history of abdominal distention and shortness of breath. The patient also complained of early satiety. On admission the patient was felt to have acute CHF. She was started on Lasix. The patient denies chest pain, nausea, vomiting, or diaphoresis, denies any fever or chills, denies hemoptysis, denies recent travel. There is no DVT or PE in the past. PAST MEDICAL HISTORY: Again includes hypertension, pulmonary hypertension, hyperlipidemia, systolic CHF, cardiomyopathy, chronic kidney disease, history of asthma, peripheral arterial disease, diabetes, history of GI bleed. REVIEW OF SYSTEMS: No orthopnea, positive shortness of breath, positive abdominal distention, no chest pain, no palpitation, no fever or chills. CURRENT MEDICATIONS: Include Tylenol, Prinivil, heparin, Xanax, Albuterol, Toprol, Apresoline, Mirapex, Lipitor, NovoLog, Lasix, aspirin and folic acid. PHYSICAL EXAMINATION: General: The patient is a well-developed, well-nourished female, awake, in no acute distress. Vitals: The patient is currently afebrile. Blood pressure is 180/74, respiratory rate 20, O2 saturation 93% on room air. HEENT: Examination is normocephalic and atraumatic. Neck: Supple. Heart: Regular, S1, S2. Lungs: Bibasilar crackles. Abdomen: Soft, bowel sounds positive. Extremities: No sign of edema. LABORATORY DATA: WBC 6.5, hemoglobin 9.8, hematocrit 30.3, platelet count 313,000. Chemistries, BUN 69, creatinine 2.4. Chest x-ray showed cardiomegaly, mild congestion. Abdominal CT there is dilatation. There is extension of the inferior vena cava and hepatic vein most likely secondary to cardiac dysfunction. There is concentric subcutaneous emphysema along the abdomen and pelvis, no problem in the flanks. IMPRESSION: 1. Decompensated congestive heart failure. 2. Obstructive sleep apnea. 3. Acute on chronic renal failure kidney disease. 4. Hypertension. 5. Pulmonary hypertension. 6. Cardiomyopathy. 7. Diabetes. PLAN: Continue Lasix, supplemental O2, inhaled bronchodilators, daily weights, also continue BiPAP / at night as well as p.r.n. Thank you we will follow closely with you. FLORENTIN HARO M.D. [id number]
[2017-02-08] MEDS: ATORVASTATIN CA 20 MG TABLET (FP) PO SCH (21:46)
[2017-02-09] MEDS: INSULIN SLIDING SCALE (NOVOLOG) 1 VIAL SQ SCH ×4 (05:59→23:17)
[2017-02-09] MEDS: FUROSEMIDE 40 MG/4 ML INJECTABLE VIAL IVPB SCH ×2 (05:59→14:20)
[2017-02-09] MEDS: ALBUTEROL SO4 0.083% IH SOL 2.5 MG/3 ML VIAL.NEB. NEB SCH ×4 (06:32→23:20)
[2017-02-09 06:53] LABS: MCH 28.7 pg (25.7-33.7); MCHC 32.3 g/dl (32.0-36.0); MEAN CELL VOLUME 88.8 fl (80-96); MEAN PLT VOLUME 8.5 fl (7.5-11.1); PLATELET COUNT 318 K/MM3 (134-434); RDW 15.6 % (11.6-15.6); WHITE BLOOD COUNT 5.9 K/mm3 (4.0-10.0)
[2017-02-09 08:08] LABS: ALBUMIN 3.1 g/dl (3.4-5.0); CALCIUM 8.6 mg/dL (8.5-10.1)
[2017-02-09 08:11] LABS: BILIRUBIN,TOTAL 0.7 mg/dL (0.2-1.0); CREATININE 2.3 mg/dL (0.55-1.02); TOT PROT 6.9 g/dl (6.4-8.2)
--- NOTE | 2017-02-09 08:32 | PN ---
Progress Note, Physician Chief Complaint: chf History of Present Illness: abdomen remains more bloated than baseline--signif worse after eats; no sob (not ambulating much) no orthopnea no cp, palpit, leg swelling - Current Medication List Current Medications: Active Medications Acetaminophen (Tylenol -) 650 mg PO Q4H PRN PRN Reason: FEVER OR PAIN Albuterol Sulfate (Ventolin 0.083% Nebulizer Soln -) 1 amp NEB Q4H PRN PRN Reason: SHORT OF BREATH/WHEEZING Albuterol Sulfate (Ventolin 0.083% Nebulizer Soln -) 1 amp NEB Q6HPO [facility] Last Admin: 02/09/17 06:32 Dose: 1 amp Aspirin (Asa -) 81 mg PO DAILY [facility] Last Admin: 02/08/17 09:12 Dose: 81 mg Atorvastatin Calcium (Lipitor -) 20 mg PO HS [facility] Last Admin: 02/08/17 21:46 Dose: 20 mg Folic Acid (Folic Acid -) 1 mg PO DAILY [facility] Last Admin: 02/08/17 09:12 Dose: 1 mg Furosemide (Lasix Injection -) 80 mg IVPB BID@0600,1400 [facility] Last Admin: 02/09/17 05:59 Dose: 80 mg Heparin Sodium (Porcine) (Heparin -) 5,000 unit SQ BID [facility] Last Admin: 02/08/17 21:48 Dose: 5,000 unit Hydralazine HCl (Apresoline -) 50 mg PO BID [facility] Last Admin: 02/08/17 21:47 Dose: 50 mg Insulin Aspart (Novolog Vial Sliding Scale -) 1 vial SQ ACHS [facility] PRN Reason: Protocol Last Admin: 02/09/17 05:59 Dose: Not Given Lisinopril (Prinivil) 2.5 mg PO BID [facility] Last Admin: 02/08/17 21:46 Dose: 2.5 mg Metoprolol Succinate (Toprol Xl -) 25 mg PO BID [facility] Last Admin: 02/08/17 21:46 Dose: 25 mg Pramipexole Dihydrochloride (Mirapex -) 0.25 mg PO DAILY [facility] Last Admin: 02/08/17 09:12 Dose: 0.25 mg - Objective Vital Signs: Vital Signs Temperature 98.1 F 02/09/17 05:00 Pulse Rate 78 02/09/17 05:00 Respiratory Rate 18 02/09/17 05:00 Blood Pressure 162/69 02/09/17 05:00 O2 Sat by Pulse Oximetry (%) 97 02/09/17 05:21 Constitutional: Yes: No Distress, Calm Eyes: No: Sclera Icterus HENT: No: Nasal Congestion Cardiovascular: Yes: Regular Rate and Rhythm, JVD (4cm), S1, S2, Other (PMI non diplaced). No: Gallop, Murmur Respiratory: Yes: CTA Bilaterally. No: Accessory Muscle Use, Rales, Wheezes Gastrointestinal: Yes: Normal Bowel Sounds, Soft. No: Tenderness Musculoskeletal: Yes: Other (No kyphosis) Extremities: No: Cold Edema: No Integumentary: No: Jaundice Neurological: Yes: Alert, Oriented (x3) Psychiatric: No: Agitated Labs: CBC, BMP 02/09/17 06:00 02/09/17 06:00 Assessment/Plan CXR: clear Abd CT: mild distension of IVC. subcutaneous edema, hepatomegaly. Echo 06/2016: mod LVE, mod decr EF (no EF reported); mild RVE and mild HK; mild L /ANISH; valves WNL; no RVSP LHC 06/29: nl EDP; EF 40% (global); 50-60% OM1 (normal FFR); mild dz others a/p: 61 yo smoker with h/o mild systolic dysfunction, HTN, HL, pHTN, mod PARVEZ on cpap, CKD (bline CR 1.3-1.4), PAD, DM h/o GIB, presents with abdominal distension x 2 weeks. acute HF exacerbation - Known biventricular cardiomyopathy/pHTN. - Currently with acute RHF exacerbation, no signs of left sided failure (? URI was trigger): abd distension, sob, dilated IVC, hepatomegaly, subcutaneous edema on CT - trigger was likely dietary noncompliance (admits to pizza and twice TV dinners with 1000mg sodium each) - no signs acs - home diuretic regimen lasix 80 mg po bid, receiving lasix 80 IV bid here. - dry wt uncertain--probably 205 where she's been recently without JVD/edema or chf sx's (up from 190 several months ago but suspect the increase was more likely caloric) - 02/08: wt trend here: 214-->205, remains with JVD; bun up slightly, creat stable 2.4-2.5 here; same lasix -02/09: wt down 201 lbs; bun up further, creat down slightly; JVD improved but still slightly up; remains with signif abd distension/bloating--give same lasix today, reassess in am - con't hydralazine, metoprolol - h/o hyperkalemia, however lisin low dose added back recently (2.5mg qd) due to worsening in LVEF--K has been stable on outpt regimen of standing kayexalate (takes QOD) - increased lisin to 2.5 bid here--watch K - increased metopr to 25 bid (i believe she may have been on this dose at home as well)--watch for worsening wheezing - cont same meds, monitor labs; sees digiorno for renal for K issues Mod PARVEZ - con't cpap, complying fairly well at home HTN - bp's mild-to-mod elevated here - con't hydralazine, metoprolol, lisinopril. Acute on chronic CKD - creat here slightly above outpt baseline but stable--? cardiorenal syndrome, ? new baseline - cont daily labs for now with ongoing diuresis asthma - stable HL - con't statin anemia, iron-deficient - chronic, follows closely with dr white/candice/shasta as outpt - counts stable here
[2017-02-09 09:07] LABS: ANISOCYTOSIS 1+; HYPOCHROMIA 1+; PLATELET COMMENT2 NO CLOTTING DETECTED; PLATELET ESTIMATE ADEQUATE (NORMAL)
--- NOTE | 2017-02-09 09:20 | PN ---
Progress Note, Physician Chief Complaint: C/O ABD BLOATING - Current Medication List Current Medications: Active Medications Acetaminophen (Tylenol -) 650 mg PO Q4H PRN PRN Reason: FEVER OR PAIN Albuterol Sulfate (Ventolin 0.083% Nebulizer Soln -) 1 amp NEB Q4H PRN PRN Reason: SHORT OF BREATH/WHEEZING Albuterol Sulfate (Ventolin 0.083% Nebulizer Soln -) 1 amp NEB Q6HPO [facility] Last Admin: 02/09/17 06:32 Dose: 1 amp Aspirin (Asa -) 81 mg PO DAILY [facility] Last Admin: 02/08/17 09:12 Dose: 81 mg Atorvastatin Calcium (Lipitor -) 20 mg PO HS [facility] Last Admin: 02/08/17 21:46 Dose: 20 mg Folic Acid (Folic Acid -) 1 mg PO DAILY [facility] Last Admin: 02/08/17 09:12 Dose: 1 mg Furosemide (Lasix Injection -) 80 mg IVPB BID@0600,1400 [facility] Last Admin: 02/09/17 05:59 Dose: 80 mg Heparin Sodium (Porcine) (Heparin -) 5,000 unit SQ BID [facility] Last Admin: 02/08/17 21:48 Dose: 5,000 unit Hydralazine HCl (Apresoline -) 50 mg PO BID [facility] Last Admin: 02/08/17 21:47 Dose: 50 mg Insulin Aspart (Novolog Vial Sliding Scale -) 1 vial SQ ACHS [facility] PRN Reason: Protocol Last Admin: 02/09/17 05:59 Dose: Not Given Lisinopril (Prinivil) 2.5 mg PO BID [facility] Last Admin: 02/08/17 21:46 Dose: 2.5 mg Metoprolol Succinate (Toprol Xl -) 25 mg PO BID [facility] Last Admin: 02/08/17 21:46 Dose: 25 mg Pramipexole Dihydrochloride (Mirapex -) 0.25 mg PO DAILY [facility] Last Admin: 02/08/17 09:12 Dose: 0.25 mg - Objective Vital Signs: Vital Signs Temperature 98.1 F 02/09/17 05:00 Pulse Rate 78 02/09/17 05:00 Respiratory Rate 18 02/09/17 05:00 Blood Pressure 162/69 02/09/17 05:00 O2 Sat by Pulse Oximetry (%) 97 02/09/17 05:21 Constitutional: Yes: Calm Neck: Yes: WNL Cardiovascular: Yes: WNL Respiratory: Yes: WNL Gastrointestinal: Yes: WNL Edema: No Labs: CBC, BMP 02/09/17 06:00 02/09/17 06:00 Problem List - Problems (1) Abdominal pain Code(s): R10.9 - UNSPECIFIED ABDOMINAL PAIN (2) CHF (congestive heart failure) Code(s): I50.9 - HEART FAILURE, UNSPECIFIED Qualifiers: Congestive heart failure type: unspecified congestive heart failure type Congestive heart failure chronicity: acute on chronic Qualified Code(s ): I50.9 - Heart failure, unspecified (3) Edema Code(s): R60.9 - EDEMA, UNSPECIFIED Qualifiers: Edema type: generalized Qualified Code(s): R60.1 - Generalized edema (4) COPD (chronic obstructive pulmonary disease) Code(s): J44.9 - CHRONIC OBSTRUCTIVE PULMONARY DISEASE, UNSPECIFIED (5) Diabetes mellitus Code(s): E11.9 - TYPE 2 DIABETES MELLITUS WITHOUT COMPLICATIONS Assessment/Plan (1) CHF (congestive heart failure) Assessment/Plan: IV LASIX AND ALBUMIN MONITOR LABS CARDIO ON CASE Code(s): I50.9 - HEART FAILURE, UNSPECIFIED Qualifiers: Congestive heart failure type: unspecified congestive heart failure type Congestive heart failure chronicity: acute on chronic Qualified Code(s ): I50.9 - Heart failure, unspecified (2) Symptomatic anemia Assessment/Plan: S/P PRBC MONITOR CBC -> STABLE HGB 10 Code(s): D64.9 - ANEMIA, UNSPECIFIED (3) CKD (chronic kidney disease) Assessment/Plan: MONITOR STABLE RENAL Code(s): N18.9 - CHRONIC KIDNEY DISEASE, UNSPECIFIED Qualifiers: Chronic kidney disease stage: unspecified stage Qualified Code(s): N18.9 - Chronic kidney disease, unspecified (4) COPD (chronic obstructive pulmonary disease) Assessment/Plan: NEBS Code(s): J44.9 - CHRONIC OBSTRUCTIVE PULMONARY DISEASE, UNSPECIFIED (5) Diabetes mellitus Assessment/Plan: BGM ENDO ON CASE A1C -> 9 BGM/ISS BS REMAIN LOW ISS LOWERED NUTRITION CONSULT Code(s): E11.9 - TYPE 2 DIABETES MELLITUS WITHOUT COMPLICATIONS (6) Abdominal pain Assessment/Plan: RESOLVED GI CONSULT NOTED CT SCAN --EDEMA Code(s): R10.9 - UNSPECIFIED ABDOMINAL PAIN CALL WORKER FM
[2017-02-09] MEDS: LISINOPRIL 5 MG TABLET (FP) PO SCH ×2 (09:35→23:16)
[2017-02-09] MEDS: ASPIRIN 81 MG CHEWABLE TABLETS PO SCH (09:35)
[2017-02-09] MEDS: METOPROLOL SUCCINATE 25 MG TAB.SR.24H (FP) PO SCH ×2 (09:35→23:18)
[2017-02-09] MEDS: FOLIC ACID 1 MG TABLET (FP) PO SCH (09:35)
[2017-02-09] MEDS: PRAMIPEXOLE DIHYDROCHLORIDE 0.25 MG TABLET PO SCH (09:36)
[2017-02-09] MEDS: hydrALAZINE HCL 50 MG TABLET (FP) PO SCH ×2 (09:36→23:16)
[2017-02-09] MEDS: HEPARIN NA (PORCINE) 5,000 UNITS/ML 1ML VIAL SQ SCH ×2 (09:37→23:16)
--- NOTE | 2017-02-09 12:28 | PN ---
Progress Note, Physician History of Present Illness: PULMONARY ALERT,FEELING BETTER,LES DYSPNEIC,-CP. PT SLEPT WELL LAST NIGHT ON BIPAP - Current Medication List Current Medications: Active Medications Acetaminophen (Tylenol -) 650 mg PO Q4H PRN PRN Reason: FEVER OR PAIN Albuterol Sulfate (Ventolin 0.083% Nebulizer Soln -) 1 amp NEB Q4H PRN PRN Reason: SHORT OF BREATH/WHEEZING Albuterol Sulfate (Ventolin 0.083% Nebulizer Soln -) 1 amp NEB Q6HPO [facility] Last Admin: 02/09/17 11:40 Dose: 1 amp Aspirin (Asa -) 81 mg PO DAILY [facility] Last Admin: 02/09/17 09:35 Dose: 81 mg Atorvastatin Calcium (Lipitor -) 20 mg PO HS [facility] Last Admin: 02/08/17 21:46 Dose: 20 mg Folic Acid (Folic Acid -) 1 mg PO DAILY [facility] Last Admin: 02/09/17 09:35 Dose: 1 mg Furosemide (Lasix Injection -) 80 mg IVPB BID@0600,1400 [facility] Last Admin: 02/09/17 05:59 Dose: 80 mg Heparin Sodium (Porcine) (Heparin -) 5,000 unit SQ BID [facility] Last Admin: 02/09/17 09:37 Dose: 5,000 unit Hydralazine HCl (Apresoline -) 50 mg PO BID [facility] Last Admin: 02/09/17 09:36 Dose: 50 mg Insulin Aspart (Novolog Vial Sliding Scale -) 1 vial SQ ACHS [facility] PRN Reason: Protocol Lisinopril (Prinivil) 2.5 mg PO BID [facility] Last Admin: 02/09/17 09:35 Dose: 2.5 mg Metoprolol Succinate (Toprol Xl -) 25 mg PO BID [facility] Last Admin: 02/09/17 09:35 Dose: 25 mg Pramipexole Dihydrochloride (Mirapex -) 0.25 mg PO DAILY [facility] Last Admin: 02/09/17 09:36 Dose: 0.25 mg - Objective Vital Signs: Vital Signs Temperature 98.6 F 02/09/17 10:00 Pulse Rate 77 02/09/17 10:00 Respiratory Rate 20 02/09/17 10:00 Blood Pressure 118/58 02/09/17 10:00 O2 Sat by Pulse Oximetry (%) 90 L 02/09/17 09:00 Constitutional: Yes: Well Nourished, Calm Eyes: Yes: WNL HENT: Yes: WNL Neck: Yes: WNL Cardiovascular: Yes: Regular Rate and Rhythm, S1, S2 Respiratory: Yes: Diminished Gastrointestinal: Yes: WNL Extremities: Yes: WNL Edema: Yes Labs: CBC, BMP 02/09/17 06:00 02/09/17 06:00 Problem List - Problems (1) Abdominal pain Code(s): R10.9 - UNSPECIFIED ABDOMINAL PAIN (2) CHF (congestive heart failure) Code(s): I50.9 - HEART FAILURE, UNSPECIFIED Qualifiers: Congestive heart failure type: unspecified congestive heart failure type Congestive heart failure chronicity: acute on chronic Qualified Code(s ): I50.9 - Heart failure, unspecified (3) Edema Code(s): R60.9 - EDEMA, UNSPECIFIED Qualifiers: Edema type: generalized Qualified Code(s): R60.1 - Generalized edema (4) Acute CHF (congestive heart failure) Code(s): I50.9 - HEART FAILURE, UNSPECIFIED (5) Anemia Code(s): D64.9 - ANEMIA, UNSPECIFIED Qualifiers: 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 Qualified Code(s): D50.0 - Iron deficiency anemia secondary to blood loss ( chronic) (6) Asthma Code(s): J45.909 - UNSPECIFIED ASTHMA, UNCOMPLICATED (7) CKD (chronic kidney disease) Code(s): N18.9 - CHRONIC KIDNEY DISEASE, UNSPECIFIED Qualifiers: Chronic kidney disease stage: unspecified stage Qualified Code(s): N18.9 - Chronic kidney disease, unspecified (8) Diabetes mellitus Code(s): E11.9 - TYPE 2 DIABETES MELLITUS WITHOUT COMPLICATIONS (9) HTN (hypertension) Code(s): I10 - ESSENTIAL (PRIMARY) HYPERTENSION (10) Pulmonary hypertension Code(s): I27.2 - OTHER SECONDARY PULMONARY HYPERTENSION (11) Smoker unmotivated to quit Code(s): F17.210 - NICOTINE DEPENDENCE, CIGARETTES, UNCOMPLICATED (12) Sleep apnea, obstructive Code(s): G47.33 - OBSTRUCTIVE SLEEP APNEA (ADULT) (PEDIATRIC) Assessment/Plan IMP DECOMPENASTED CHF,RHF CARDIOMYOPTHY PULMONARY HTN H/O ASTHMA ACUTE ON CHRONIC RENAL FAILURE HTN DM ANEMIA OSAS PLAN CONTINUE IV LASIX INHALED BRONCHODILATORS SUPPLEMENTAL O2 DAILY WTS F/U CHEST X-RAYS MONITOR LYTES,RENAL FUNCTION BIPAP AT NIGHT DR HARO
--- NOTE | 2017-02-09 12:52 | PN ---
Progress Note (short form) - Note Progress Note: RENAL Pt seen and examined had no complaints says she follwos with Dr Kay she was hypoglycemic has been bloated. Not feeling well after colonoscopy Last Vital Signs Temp Pulse Resp BP Pulse Ox 98.6 F 77 20 118/58 90 L 02/09/17 10:00 02/09/17 10:00 02/09/17 10:00 02/09/17 10:00 02/09/17 09:00 PE awake and alert comfortable lungs clear cvs s1s2 rr abd soft ext no edema neuro a+ox3 Current Medications Generic Name Dose Route Start Last Admin Trade Name Freq PRN Reason Stop Dose Admin Acetaminophen 650 mg 02/05/17 23:37 Tylenol - PO Q4H PRN FEVER OR PAIN Albuterol Sulfate 1 amp 02/05/17 23:35 Ventolin 0.083% Nebulizer Soln - NEB Q4H PRN SHORT OF BREATH/WHEEZING Albuterol Sulfate 1 amp 02/06/17 00:00 02/09/17 11:40 Ventolin 0.083% Nebulizer Soln - NEB 1 amp Q6HPO [facility] Administration Aspirin 81 mg 02/06/17 10:00 02/09/17 09:35 Asa - PO 81 mg DAILY [facility] Administration Atorvastatin Calcium 20 mg 02/06/17 22:00 02/08/17 21:46 Lipitor - PO 20 mg HS [facility] Administration Folic Acid 1 mg 02/06/17 10:00 02/09/17 09:35 Folic Acid - PO 1 mg DAILY [facility] Administration Furosemide 80 mg 02/08/17 06:00 02/09/17 05:59 Lasix Injection - IVPB 80 mg BID@0600,1400 [facility] Administration Heparin Sodium (Porcine) 5,000 unit 02/05/17 23:45 02/09/17 09:37 Heparin - SQ 5,000 unit BID [facility] Administration Hydralazine HCl 50 mg 02/06/17 10:00 02/09/17 09:36 Apresoline - PO 50 mg BID [facility] Administration Insulin Aspart 1 vial 02/09/17 09:19 02/09/17 12:31 Novolog Vial Sliding Scale - SQ Not Given ACHS [facility] Protocol Lisinopril 2.5 mg 02/08/17 22:00 02/09/17 09:35 Prinivil PO 2.5 mg BID [facility] Administration Metoprolol Succinate 25 mg 02/08/17 22:00 02/09/17 09:35 Toprol Xl - PO 25 mg BID [facility] Administration Pramipexole Dihydrochloride 0.25 mg 02/06/17 10:00 02/09/17 09:36 Mirapex - PO 0.25 mg DAILY [facility] Administration CBC, BMP 02/09/17 06:00 02/09/17 06:00 Impression 1. CKD 2. anemia 3. CHF 4. HTN 5. DM 6. hyperlipidemia 7. anxiety 8. uterine cancer 9. hx GI bleed 10. hypoglycemia may be due to long acting effect of glyburide which she says she has been on 11. maybe constipated 12. ?depression. Her dog recently Plan - would use glipizide instead of glyburide - cont lasix - cont anneliese - repeat labs in am - pt will follow with Dr Kay after discharge - monitor hg -stool softener MV
[2017-02-09] MEDS: ATORVASTATIN CA 20 MG TABLET (FP) PO SCH (23:16)
[2017-02-10] MEDS ORDERED: ALPRAZolam 0.25 MG TABLET PO PRN (00:03)
[2017-02-10] MEDS: ALBUTEROL SO4 0.083% IH SOL 2.5 MG/3 ML VIAL.NEB. NEB SCH ×4 (06:20→23:16)
[2017-02-10] MEDS: INSULIN SLIDING SCALE (NOVOLOG) 1 VIAL SQ SCH ×4 (06:25→22:00)
[2017-02-10] MEDS: FUROSEMIDE 40 MG/4 ML INJECTABLE VIAL IVPB SCH ×2 (06:32→13:59)
[2017-02-10 07:07] LABS: BASOPHIL 0.7 % (0-2.0); EOSINOPHIL 1.6 % (0-4.5); MCH 28.7 pg (25.7-33.7); MEAN CELL VOLUME 89.7 fl (80-96); MEAN PLT VOLUME 8.8 fl (7.5-11.1); PLATELET COUNT 316 K/MM3 (134-434); RDW 15.7 % (11.6-15.6); WHITE BLOOD COUNT 6.1 K/mm3 (4.0-10.0)
[2017-02-10 07:14] LABS: CALCIUM 8.5 mg/dL (8.5-10.1)
[2017-02-10 07:16] LABS: BILIRUBIN,TOTAL 0.5 mg/dL (0.2-1.0); CREATININE 2.3 mg/dL (0.55-1.02); TOT PROT 6.8 g/dl (6.4-8.2)
--- NOTE | 2017-02-10 08:01 | PN ---
Progress Note, Physician - Current Medication List Current Medications: Active Medications Acetaminophen (Tylenol -) 650 mg PO Q4H PRN PRN Reason: FEVER OR PAIN Albuterol Sulfate (Ventolin 0.083% Nebulizer Soln -) 1 amp NEB Q4H PRN PRN Reason: SHORT OF BREATH/WHEEZING Albuterol Sulfate (Ventolin 0.083% Nebulizer Soln -) 1 amp NEB Q6HPO [facility] Last Admin: 02/10/17 06:20 Dose: Not Given Alprazolam (Xanax -) 0.5 mg PO HS PRN PRN Reason: RESTLESSNESS Aspirin (Asa -) 81 mg PO DAILY [facility] Last Admin: 02/09/17 09:35 Dose: 81 mg Atorvastatin Calcium (Lipitor -) 20 mg PO HS [facility] Last Admin: 02/09/17 23:16 Dose: 20 mg Folic Acid (Folic Acid -) 1 mg PO DAILY [facility] Last Admin: 02/09/17 09:35 Dose: 1 mg Furosemide (Lasix Injection -) 80 mg IVPB BID@0600,1400 [facility] Last Admin: 02/10/17 06:32 Dose: 80 mg Heparin Sodium (Porcine) (Heparin -) 5,000 unit SQ BID [facility] Last Admin: 02/09/17 23:16 Dose: 5,000 unit Hydralazine HCl (Apresoline -) 50 mg PO BID [facility] Last Admin: 02/09/17 23:16 Dose: 50 mg Insulin Aspart (Novolog Vial Sliding Scale -) 1 vial SQ ACHS [facility] PRN Reason: Protocol Last Admin: 02/10/17 06:25 Dose: Not Given Lisinopril (Prinivil) 2.5 mg PO BID [facility] Last Admin: 02/09/17 23:16 Dose: 2.5 mg Metoprolol Succinate (Toprol Xl -) 25 mg PO BID [facility] Last Admin: 02/09/17 23:18 Dose: 25 mg Pramipexole Dihydrochloride (Mirapex -) 0.25 mg PO DAILY [facility] Last Admin: 02/09/17 09:36 Dose: 0.25 mg - Objective Vital Signs: Vital Signs Temperature 98.2 F 02/10/17 06:00 Pulse Rate 74 02/10/17 06:00 Respiratory Rate 20 02/10/17 06:00 Blood Pressure 139/83 02/10/17 06:00 O2 Sat by Pulse Oximetry (%) 96 02/10/17 06:20 Labs: CBC, BMP 02/10/17 05:35 02/10/17 05:35 Problem List - Problems (1) CHF (congestive heart failure) Assessment/Plan: RT SIDED CONTINUE WITH IV LASIX --LOST 18 LBS MONITOR LABS Code(s): I50.9 - HEART FAILURE, UNSPECIFIED Qualifiers: Congestive heart failure type: unspecified congestive heart failure type Congestive heart failure chronicity: acute on chronic Qualified Code(s ): I50.9 - Heart failure, unspecified (2) Symptomatic anemia Assessment/Plan: S/P PRBC MONITOR CBC Code(s): D64.9 - ANEMIA, UNSPECIFIED (3) CKD (chronic kidney disease) Assessment/Plan: MONITOR RENAL Code(s): N18.9 - CHRONIC KIDNEY DISEASE, UNSPECIFIED Qualifiers: Chronic kidney disease stage: unspecified stage Qualified Code(s): N18.9 - Chronic kidney disease, unspecified (4) COPD (chronic obstructive pulmonary disease) Assessment/Plan: NEBS Code(s): J44.9 - CHRONIC OBSTRUCTIVE PULMONARY DISEASE, UNSPECIFIED (5) Diabetes mellitus Assessment/Plan: BGM ENDO ON CASE A1C -> 9 BGM/ISS BS REMAIN LOW ISS LOWERED NUTRITION CONSULT Code(s): E11.9 - TYPE 2 DIABETES MELLITUS WITHOUT COMPLICATIONS (6) Abdominal pain Assessment/Plan: RESOLVED GI CONSULT NOTED CT SCAN --EDEMA Code(s): R10.9 - UNSPECIFIED ABDOMINAL PAIN
--- NOTE | 2017-02-10 08:25 | PN ---
Progress Note, Physician Chief Complaint: chf History of Present Illness: abd bloating with food is improved; no sob, cp, palpit - Current Medication List Current Medications: Active Medications Acetaminophen (Tylenol -) 650 mg PO Q4H PRN PRN Reason: FEVER OR PAIN Albuterol Sulfate (Ventolin 0.083% Nebulizer Soln -) 1 amp NEB Q4H PRN PRN Reason: SHORT OF BREATH/WHEEZING Albuterol Sulfate (Ventolin 0.083% Nebulizer Soln -) 1 amp NEB Q6HPO [facility] Last Admin: 02/10/17 06:20 Dose: Not Given Alprazolam (Xanax -) 0.5 mg PO HS PRN PRN Reason: RESTLESSNESS Aspirin (Asa -) 81 mg PO DAILY [facility] Last Admin: 02/09/17 09:35 Dose: 81 mg Atorvastatin Calcium (Lipitor -) 20 mg PO HS [facility] Last Admin: 02/09/17 23:16 Dose: 20 mg Folic Acid (Folic Acid -) 1 mg PO DAILY [facility] Last Admin: 02/09/17 09:35 Dose: 1 mg Furosemide (Lasix Injection -) 80 mg IVPB BID@0600,1400 [facility] Last Admin: 02/10/17 06:32 Dose: 80 mg Heparin Sodium (Porcine) (Heparin -) 5,000 unit SQ BID [facility] Last Admin: 02/09/17 23:16 Dose: 5,000 unit Hydralazine HCl (Apresoline -) 50 mg PO BID [facility] Last Admin: 02/09/17 23:16 Dose: 50 mg Insulin Aspart (Novolog Vial Sliding Scale -) 1 vial SQ ACHS [facility] PRN Reason: Protocol Last Admin: 02/10/17 06:25 Dose: Not Given Lisinopril (Prinivil) 2.5 mg PO BID [facility] Last Admin: 02/09/17 23:16 Dose: 2.5 mg Metoprolol Succinate (Toprol Xl -) 25 mg PO BID [facility] Last Admin: 02/09/17 23:18 Dose: 25 mg Pramipexole Dihydrochloride (Mirapex -) 0.25 mg PO DAILY [facility] Last Admin: 02/09/17 09:36 Dose: 0.25 mg - Objective Vital Signs: Vital Signs Temperature 98.2 F 02/10/17 06:00 Pulse Rate 74 02/10/17 06:00 Respiratory Rate 20 02/10/17 06:00 Blood Pressure 139/83 02/10/17 06:00 O2 Sat by Pulse Oximetry (%) 96 02/10/17 06:20 Constitutional: Yes: Well Nourished, No Distress, Calm Cardiovascular: Yes: Regular Rate and Rhythm, S1, S2. No: Gallop, Murmur Respiratory: Yes: Regular, CTA Bilaterally. No: Accessory Muscle Use, Rales, Wheezes Extremities: No: Cold Edema: No Neurological: Yes: Alert, Oriented Psychiatric: No: Agitated Labs: CBC, BMP 02/10/17 05:35 02/10/17 05:35 Assessment/Plan CXR: clear Abd CT: mild distension of IVC. subcutaneous edema, hepatomegaly. Echo 06/2016: mod LVE, mod decr EF (no EF reported); mild RVE and mild HK; mild L /ANISH; valves WNL; no RVSP LHC 06/29: nl EDP; EF 40% (global); 50-60% OM1 (normal FFR); mild dz others a/p: 61 yo smoker with h/o mild systolic dysfunction, HTN, HL, pHTN, mod PARVEZ on cpap, CKD (bline CR 1.3-1.4), PAD, DM h/o GIB, presents with abdominal distension x 2 weeks. acute HF exacerbation - Known biventricular cardiomyopathy/pHTN. - Currently with acute RHF exacerbation, no signs of left sided failure (? URI was trigger): abd distension, sob, dilated IVC, hepatomegaly, subcutaneous edema on CT - trigger was likely dietary noncompliance (admits to pizza and twice TV dinners with 1000mg sodium each) - no signs acs - home diuretic regimen lasix 80 mg po bid, receiving lasix 80 IV bid here. - dry wt uncertain--probably 205 where she's been recently without JVD/edema or chf sx's (up from 190 several months ago but suspect the increase was more likely caloric) - 02/08: wt trend here: 214-->205, remains with JVD; bun up slightly, creat stable 2.4-2.5 here; same lasix -02/09: wt down 201 lbs; bun up further, creat down slightly; JVD improved but still slightly up; remains with signif abd distension/bloating--give same lasix today, reassess in am -02/10: wt down to 200 lbs; bun progressively rising, creat improved; -continues to feel abdomen distended/bloated dixon after eating--not ascites given sono and CT within past 5d show no fluid--likely jp, ? if this is chf sx -cont lasix 80 iv bid today -anticipate d/c home on lasix 80 po bid 02/11, with improved home Na diet compliance rec'd - con't hydralazine, metoprolol - h/o hyperkalemia, however lisin low dose added back recently (2.5mg qd) due to worsening in LVEF--K has been stable on outpt regimen of standing kayexalate (takes QOD) - increased lisin to 2.5 bid here--watch K - increased metopr to 25 bid (i believe she may have been on this dose at home as well)--watch for worsening wheezing - cont same meds, monitor labs; sees digiorno for renal for K issues Mod PARVEZ - con't cpap, complying fairly well at home HTN - bp's mild-to-mod elevated here - con't hydralazine, metoprolol, lisinopril. Acute on chronic CKD - creat here slightly above outpt baseline but stable--? cardiorenal syndrome, ? new baseline - cont daily labs for now with ongoing diuresis asthma - stable HL - con't statin anemia, iron-deficient - chronic, follows closely with dr white/candice/shasta as outpt - counts stable here
[2017-02-10] MEDS ORDERED: PT OWN MED DRAWER 7, Y5N ONE (10:26)
[2017-02-10] MEDS: ASPIRIN 81 MG CHEWABLE TABLETS PO SCH (10:36)
[2017-02-10] MEDS: METOPROLOL SUCCINATE 25 MG TAB.SR.24H (FP) PO SCH ×2 (10:37→21:59)
[2017-02-10] MEDS: hydrALAZINE HCL 50 MG TABLET (FP) PO SCH ×2 (10:37→21:59)
[2017-02-10] MEDS: LISINOPRIL 5 MG TABLET (FP) PO SCH ×2 (10:38→22:00)
[2017-02-10] MEDS: PRAMIPEXOLE DIHYDROCHLORIDE 0.25 MG TABLET PO SCH (10:38)
[2017-02-10] MEDS: HEPARIN NA (PORCINE) 5,000 UNITS/ML 1ML VIAL SQ SCH ×2 (10:39→22:00)
[2017-02-10] MEDS: FOLIC ACID 1 MG TABLET (FP) PO SCH (10:39)
--- NOTE | 2017-02-10 13:08 | PN ---
Progress Note, Physician History of Present Illness: PULMONARY ALERT,FEELING BETTER,NAD,-CP, DYSPNEA IMPROVED - Current Medication List Current Medications: Active Medications Acetaminophen (Tylenol -) 650 mg PO Q4H PRN PRN Reason: FEVER OR PAIN Albuterol Sulfate (Ventolin 0.083% Nebulizer Soln -) 1 amp NEB Q4H PRN PRN Reason: SHORT OF BREATH/WHEEZING Albuterol Sulfate (Ventolin 0.083% Nebulizer Soln -) 1 amp NEB Q6HPO [facility] Last Admin: 02/10/17 11:15 Dose: 1 amp Alprazolam (Xanax -) 0.5 mg PO HS PRN PRN Reason: RESTLESSNESS Aspirin (Asa -) 81 mg PO DAILY [facility] Last Admin: 02/10/17 10:36 Dose: 81 mg Atorvastatin Calcium (Lipitor -) 20 mg PO HS [facility] Last Admin: 02/09/17 23:16 Dose: 20 mg Folic Acid (Folic Acid -) 1 mg PO DAILY [facility] Last Admin: 02/10/17 10:39 Dose: 1 mg Furosemide (Lasix Injection -) 80 mg IVPB BID@0600,1400 [facility] Last Admin: 02/10/17 06:32 Dose: 80 mg Heparin Sodium (Porcine) (Heparin -) 5,000 unit SQ BID [facility] Last Admin: 02/10/17 10:39 Dose: 5,000 unit Hydralazine HCl (Apresoline -) 50 mg PO BID [facility] Last Admin: 02/10/17 10:37 Dose: 50 mg Insulin Aspart (Novolog Vial Sliding Scale -) 1 vial SQ ACHS [facility] PRN Reason: Protocol Last Admin: 02/10/17 06:25 Dose: Not Given Lisinopril (Prinivil) 2.5 mg PO BID [facility] Last Admin: 02/10/17 10:38 Dose: 2.5 mg Metoprolol Succinate (Toprol Xl -) 25 mg PO BID [facility] Last Admin: 02/10/17 10:37 Dose: 25 mg Pramipexole Dihydrochloride (Mirapex -) 0.25 mg PO DAILY [facility] Last Admin: 02/10/17 10:38 Dose: 0.25 mg - Objective Vital Signs: Vital Signs Temperature 98.4 F 02/10/17 09:00 Pulse Rate 71 02/10/17 11:15 Respiratory Rate 20 02/10/17 09:00 Blood Pressure 141/72 02/10/17 09:00 O2 Sat by Pulse Oximetry (%) 98 02/10/17 11:15 Constitutional: Yes: Well Nourished, Calm Eyes: Yes: WNL HENT: Yes: WNL Neck: Yes: WNL Cardiovascular: Yes: Regular Rate and Rhythm, S1, S2 Respiratory: Yes: Diminished Gastrointestinal: Yes: Normal Bowel Sounds, Soft Extremities: Yes: WNL Edema: No Labs: CBC, BMP 02/10/17 05:35 02/10/17 05:35 Problem List - Problems (1) Abdominal pain Code(s): R10.9 - UNSPECIFIED ABDOMINAL PAIN (2) CHF (congestive heart failure) Code(s): I50.9 - HEART FAILURE, UNSPECIFIED Qualifiers: Congestive heart failure type: unspecified congestive heart failure type Congestive heart failure chronicity: acute on chronic Qualified Code(s ): I50.9 - Heart failure, unspecified (3) Edema Code(s): R60.9 - EDEMA, UNSPECIFIED Qualifiers: Edema type: generalized Qualified Code(s): R60.1 - Generalized edema (4) Acute CHF (congestive heart failure) Code(s): I50.9 - HEART FAILURE, UNSPECIFIED (5) Anemia Code(s): D64.9 - ANEMIA, UNSPECIFIED Qualifiers: 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 Qualified Code(s): D50.0 - Iron deficiency anemia secondary to blood loss ( chronic) (6) Asthma Code(s): J45.909 - UNSPECIFIED ASTHMA, UNCOMPLICATED (7) CKD (chronic kidney disease) Code(s): N18.9 - CHRONIC KIDNEY DISEASE, UNSPECIFIED Qualifiers: Chronic kidney disease stage: unspecified stage Qualified Code(s): N18.9 - Chronic kidney disease, unspecified (8) Diabetes mellitus Code(s): E11.9 - TYPE 2 DIABETES MELLITUS WITHOUT COMPLICATIONS (9) HTN (hypertension) Code(s): I10 - ESSENTIAL (PRIMARY) HYPERTENSION (10) Pulmonary hypertension Code(s): I27.2 - OTHER SECONDARY PULMONARY HYPERTENSION (11) Smoker unmotivated to quit Code(s): F17.210 - NICOTINE DEPENDENCE, CIGARETTES, UNCOMPLICATED (12) Sleep apnea, obstructive Code(s): G47.33 - OBSTRUCTIVE SLEEP APNEA (ADULT) (PEDIATRIC) Assessment/Plan IMP DECOMPENASTED CHF,RHF CARDIOMYOPTHY PULMONARY HTN H/O ASTHMA ACUTE ON CHRONIC RENAL FAILURE HTN DM ANEMIA OSAS PLAN CONTINUE LASIX INHALED BRONCHODILATORS SUPPLEMENTAL O2 DAILY WTS MONITOR LYTES,RENAL FUNCTION BIPAP AT NIGHT CHEST X-RAY DR HARO
--- NOTE | 2017-02-10 15:03 | PN ---
Progress Note, Physician History of Present Illness: Pt seen and examined at bedside. She feels that her breathing is improved. She feels that her abdomen is improved. - Current Medication List Current Medications: Active Medications Acetaminophen (Tylenol -) 650 mg PO Q4H PRN PRN Reason: FEVER OR PAIN Albuterol Sulfate (Ventolin 0.083% Nebulizer Soln -) 1 amp NEB Q4H PRN PRN Reason: SHORT OF BREATH/WHEEZING Albuterol Sulfate (Ventolin 0.083% Nebulizer Soln -) 1 amp NEB Q6HPO [facility] Last Admin: 02/10/17 11:15 Dose: 1 amp Alprazolam (Xanax -) 0.5 mg PO HS PRN PRN Reason: RESTLESSNESS Aspirin (Asa -) 81 mg PO DAILY [facility] Last Admin: 02/10/17 10:36 Dose: 81 mg Atorvastatin Calcium (Lipitor -) 20 mg PO HS [facility] Last Admin: 02/09/17 23:16 Dose: 20 mg Folic Acid (Folic Acid -) 1 mg PO DAILY [facility] Last Admin: 02/10/17 10:39 Dose: 1 mg Furosemide (Lasix Injection -) 80 mg IVPB BID@0600,1400 [facility] Last Admin: 02/10/17 13:59 Dose: 80 mg Heparin Sodium (Porcine) (Heparin -) 5,000 unit SQ BID [facility] Last Admin: 02/10/17 10:39 Dose: 5,000 unit Hydralazine HCl (Apresoline -) 50 mg PO BID [facility] Last Admin: 02/10/17 10:37 Dose: 50 mg Insulin Aspart (Novolog Vial Sliding Scale -) 1 vial SQ ACHS [facility] PRN Reason: Protocol Last Admin: 02/10/17 13:13 Dose: 4 units Lisinopril (Prinivil) 2.5 mg PO BID [facility] Last Admin: 02/10/17 10:38 Dose: 2.5 mg Metoprolol Succinate (Toprol Xl -) 25 mg PO BID [facility] Last Admin: 02/10/17 10:37 Dose: 25 mg Pramipexole Dihydrochloride (Mirapex -) 0.25 mg PO DAILY [facility] Last Admin: 02/10/17 10:38 Dose: 0.25 mg - Objective Vital Signs: Vital Signs Temperature 98.4 F 02/10/17 09:00 Pulse Rate 71 02/10/17 11:15 Respiratory Rate 20 02/10/17 09:00 Blood Pressure 141/72 02/10/17 09:00 O2 Sat by Pulse Oximetry (%) 98 02/10/17 11:15 Constitutional: Yes: Calm Eyes: Yes: Conjunctiva Clear HENT: Yes: Atraumatic Neck: Yes: Supple Cardiovascular: Yes: S1, S2 Respiratory: Yes: CTA Bilaterally Gastrointestinal: Yes: Soft, Abdomen, Obese Genitourinary: Yes: WNL Extremities: Yes: WNL Edema: No Neurological: Yes: Oriented Psychiatric: Yes: Oriented Labs: CBC, BMP 02/10/17 05:35 02/10/17 05:35 Problem List - Problems (1) Abdominal pain Code(s): R10.9 - UNSPECIFIED ABDOMINAL PAIN (2) CHF (congestive heart failure) Code(s): I50.9 - HEART FAILURE, UNSPECIFIED Qualifiers: Congestive heart failure type: unspecified congestive heart failure type Congestive heart failure chronicity: acute on chronic Qualified Code(s ): I50.9 - Heart failure, unspecified (3) Edema Code(s): R60.9 - EDEMA, UNSPECIFIED Qualifiers: Edema type: generalized Qualified Code(s): R60.1 - Generalized edema (4) Symptomatic anemia Code(s): D64.9 - ANEMIA, UNSPECIFIED (5) Acute CHF (congestive heart failure) Code(s): I50.9 - HEART FAILURE, UNSPECIFIED (6) CKD (chronic kidney disease) Code(s): N18.9 - CHRONIC KIDNEY DISEASE, UNSPECIFIED Qualifiers: Chronic kidney disease stage: unspecified stage Qualified Code(s): N18.9 - Chronic kidney disease, unspecified (7) Diabetes mellitus Code(s): E11.9 - TYPE 2 DIABETES MELLITUS WITHOUT COMPLICATIONS (8) HTN (hypertension) Code(s): I10 - ESSENTIAL (PRIMARY) HYPERTENSION Assessment/Plan Current Medications Generic Name Dose Route Start Last Admin Trade Name Freq PRN Reason Stop Dose Admin Acetaminophen 650 mg 02/05/17 23:37 Tylenol - PO Q4H PRN FEVER OR PAIN Albuterol Sulfate 1 amp 02/05/17 23:35 Ventolin 0.083% Nebulizer Soln - NEB Q4H PRN SHORT OF BREATH/WHEEZING Albuterol Sulfate 1 amp 02/06/17 00:00 02/10/17 11:15 Ventolin 0.083% Nebulizer Soln - NEB 1 amp Q6HPO [facility]DO Administration Alprazolam 0.5 mg 02/10/17 00:03 Xanax - PO HS PRN RESTLESSNESS Aspirin 81 mg 02/06/17 10:00 02/10/17 10:36 Asa - PO 81 mg DAILY [facility] Administration Atorvastatin Calcium 20 mg 02/06/17 22:00 02/09/17 23:16 Lipitor - PO 20 mg HS ALDO Administration Folic Acid 1 mg 02/06/17 10:00 02/10/17 10:39 Folic Acid - PO 1 mg DAILY [facility] Administration Furosemide 80 mg 02/08/17 06:00 02/10/17 13:59 Lasix Injection - IVPB 80 mg BID@0600,1400 [facility] Administration Heparin Sodium (Porcine) 5,000 unit 02/05/17 23:45 02/10/17 10:39 Heparin - SQ 5,000 unit BID [facility] Administration Hydralazine HCl 50 mg 02/06/17 10:00 02/10/17 10:37 Apresoline - PO 50 mg BID [facility] Administration Insulin Aspart 1 vial 02/09/17 09:19 02/10/17 13:13 Novolog Vial Sliding Scale - SQ 4 units ACHS [facility] Administration Protocol Lisinopril 2.5 mg 02/08/17 22:00 02/10/17 10:38 Prinivil PO 2.5 mg BID [facility] Administration Metoprolol Succinate 25 mg 02/08/17 22:00 02/10/17 10:37 Toprol Xl - PO 25 mg BID ALDO Administration Pramipexole Dihydrochloride 0.25 mg 02/06/17 10:00 02/10/17 10:38 Mirapex - PO 0.25 mg DAILY [facility] Administration Impression 1. CKD 2. anemia 3. CHF 4. HTN 5. DM 6. hyperlipidemia 7. anxiety 8. uterine cancer 9. hx GI bleed Plan - renal function is stable - cont with lasix - pt has bipap at home - cardio input appreciated - will keep on anneliese - monitor hg - will follow Dr Moore
[2017-02-10] MEDS: ATORVASTATIN CA 20 MG TABLET (FP) PO SCH (21:59)
[2017-02-11] MEDS: INSULIN SLIDING SCALE (NOVOLOG) 1 VIAL SQ SCH ×2 (06:24→12:31)
[2017-02-11] MEDS: FUROSEMIDE 40 MG/4 ML INJECTABLE VIAL IVPB SCH (06:56)
--- NOTE | 2017-02-11 09:08 | DS ---
Physical Examination Vital Signs: Vital Signs Temperature 98.6 F 02/11/17 06:59 Pulse Rate 82 02/11/17 06:59 Respiratory Rate 18 02/11/17 06:59 Blood Pressure 140/68 02/11/17 06:59 O2 Sat by Pulse Oximetry (%) 93 L 02/11/17 06:36 Cardiovascular: Yes: Regular Rate and Rhythm Respiratory: Yes: Regular, CTA Bilaterally Gastrointestinal: Yes: Normal Bowel Sounds, Soft. No: Tenderness Labs: CBC, BMP 02/10/17 05:35 02/10/17 05:35 Discharge Summary Reason For Visit: ANEMIA Current Active Problems Abdominal pain (Acute) CHF (congestive heart failure) (Acute) Edema (Acute) Sleep apnea, obstructive (Acute) Symptomatic anemia (Acute) Hospital Course: 61 year old female, with a significant past medical history of anemia, asthma, uterine CA, COPD, diabetes, HTN and HLD, who presents to the emergency department with abdominal pain/bloating, constipation and shortness of breath. She describes her abdominal pain as a bloating sensation, ranging from mild to moderate, without radiation or modifying factors. She attests her shortness of breath as due to her abdominal bloating. She had an ultrasound prior to presentation, which showed cholelithiasis and hepatomegaly but no evidence of ascites. - Past Medical History Cardiovascular: Yes: CHF, HTN, Hyperlipdemia, Pulmonary Hypertension Pulmonary: Yes: Asthma, Sleep Apnea (on BIPAP at night) Gastrointestinal: Yes: GI Bleed (see HPI), Other (had EGD and colono 12/31, ) Renal/: Yes: Renal Failure, Renal Inusuff ...LMP: 11/17/07 ...: No Heme/Onc: Yes: Anemia Endocrine: Yes: Diabetes Mellitus (uncontrolled) - Smoking History Smoking history: Current every day smoker Have you smoked in the past 12 months: Yes Aproximately how many cigarettes per day: 10 - Problems (1) CHF (congestive heart failure) Assessment/Plan: RT SIDED CONTINUE WITH IV LASIX --LOST 18 LBS--TO PO MONITOR LABS Code(s): I50.9 - HEART FAILURE, UNSPECIFIED Qualifiers: Congestive heart failure type: unspecified congestive heart failure type Congestive heart failure chronicity: acute on chronic Qualified Code(s ): I50.9 - Heart failure, unspecified (2) Symptomatic anemia Assessment/Plan: S/P PRBC MONITOR CBC Code(s): D64.9 - ANEMIA, UNSPECIFIED (3) CKD (chronic kidney disease) Assessment/Plan: MONITOR RENAL Code(s): N18.9 - CHRONIC KIDNEY DISEASE, UNSPECIFIED Qualifiers: Chronic kidney disease stage: unspecified stage Qualified Code(s): N18.9 - Chronic kidney disease, unspecified (4) COPD (chronic obstructive pulmonary disease) Assessment/Plan: NEBS Code(s): J44.9 - CHRONIC OBSTRUCTIVE PULMONARY DISEASE, UNSPECIFIED (5) Diabetes mellitus Assessment/Plan: BGM ENDO ON CASE A1C -> 9 BGM/ISS BS REMAIN LOW ISS LOWERED NUTRITION CONSULT Code(s): E11.9 - TYPE 2 DIABETES MELLITUS WITHOUT COMPLICATIONS (6) Abdominal pain Assessment/Plan: RESOLVED GI CONSULT NOTED CT SCAN --EDEMA Code(s): R10.9 - UNSPECIFIED ABDOMINAL PAIN Condition: Improved - Instructions Referrals: Anyi Mcgrath MD [Primary Care Provider] - Disposition: HOME - Home Medications Comprehensive Discharge Medication List: Ambulatory Orders Aspirin 81 mg PO DAILY 01/18/14 Albuterol 0.083% Nebulizer Laura [Ventolin 0.083% Nebulizer Soln -] 1 neb NEB Q4H PRN #120 vial 11/19/14 Alprazolam [Xanax] 0.5 mg PO HS PRN #15 tablet 11/19/14 Hydralazine HCl [Apresoline -] 50 mg PO BID #60 tablet 11/19/14 Folic Acid 1 mg PO DAILY 01/09/16 Furosemide [Lasix -] 80 mg PO BID@0600,1400 #60 tablet 01/11/16 Atorvastatin Ca [Lipitor] 20 mg PO HS 11/25/16 Iron Polysaccharides [Niferex-150 -] 150 mg PO DAILY 11/25/16 Pramipexole Di-HCl [Mirapex] 0.25 mg PO DAILY 11/26/16 Lisinopril [Prinivil] 2.5 mg PO BID tablet 02/11/17 Metoprolol Succinate [Toprol Xl -] 50 mg PO DAILY #30 tablet 02/11/17
[2017-02-11] MEDS: LISINOPRIL 5 MG TABLET (FP) PO SCH (09:59)
[2017-02-11] MEDS: HEPARIN NA (PORCINE) 5,000 UNITS/ML 1ML VIAL SQ SCH (09:59)
[2017-02-11] MEDS: METOPROLOL SUCCINATE 25 MG TAB.SR.24H (FP) PO SCH (09:59)
[2017-02-11] MEDS: ASPIRIN 81 MG CHEWABLE TABLETS PO SCH (09:59)
[2017-02-11] MEDS: FOLIC ACID 1 MG TABLET (FP) PO SCH (09:59)
[2017-02-11] MEDS: hydrALAZINE HCL 50 MG TABLET (FP) PO SCH (09:59)
[2017-02-11] MEDS: PRAMIPEXOLE DIHYDROCHLORIDE 0.25 MG TABLET PO SCH (10:00)
[2017-02-11 10:05] VITALS: PULSE 68
[2017-02-11 11:41] VITALS: BP 128/66; TEMP 98.4
== END 2017-02-11 13:50 | disposition home or self-care (01) | DRG 291 ==
LOC: SUPCPDRO 16:09 → JER 16:09 → JERBED 23:32 → UNDOADMIN 23:56 → J4S 02-06 03:35
PROVIDERS: ADMIT Family Medicine; ATTEND Family Medicine
PROC: 30233N1 Transfusion of Nonautologous Red Blood Cells into Peripheral Vein, Percutaneous Approach (ICD-10-PCS; principal; 2017-02-06)
DX: I13.0 Hypertensive heart and chronic kidney disease with heart failure and stage 1 through stage 4 chronic kidney disease, or unspecified chronic kidney disease (principal); I50.23 Acute on chronic systolic (congestive) heart failure; N17.9 Acute kidney failure, unspecified; D50.0 Iron deficiency anemia secondary to blood loss (chronic); J45.909 Unspecified asthma, uncomplicated; G47.30 Sleep apnea, unspecified; F17.210 Nicotine dependence, cigarettes, uncomplicated; J44.9 Chronic obstructive pulmonary disease, unspecified; E11.22 Type 2 diabetes mellitus with diabetic chronic kidney disease; E11.65 Type 2 diabetes mellitus with hyperglycemia; N18.9 Chronic kidney disease, unspecified; I50.9 Heart failure, unspecified; K80.20 Calculus of gallbladder without cholecystitis without obstruction; R16.0 Hepatomegaly, not elsewhere classified; Z85.42 Personal history of malignant neoplasm of other parts of uterus; I27.2 Other secondary pulmonary hypertension; E66.9 Obesity, unspecified; Z68.32 Body mass index [BMI] 32.0-32.9, adult; Z79.84 Long term (current) use of oral hypoglycemic drugs
CPT/HCPCS: 36415; 36430; 71010-TC; 71020-TC; 74176-TC; 80048; 80053; 81003; 81015; 82436; 82570; 83036; 83690; 83735; 84133; 84156; 84300; 84439; 84443; 84484; 84540; 85025; 86850; 86900; 86901; 86922; 93005; 93010; 94640; 94660; 99285-25; G0008; J1644; P9038; P9058; Q2037; Q9967

== ENCOUNTER 2017-03-06 14:14 | Inpatient (IN) | payer OTHER ==
[2017-03-06 14:21] VITALS: BMI 31.3
[2017-03-06 15:14] LABS: BASOPHIL 0.5 % (0-2.0); EOSINOPHIL 3.3 % (0-4.5); MCHC 31.6 g/dl (32.0-36.0); MEAN CELL VOLUME 88.7 fl (80-96); MEAN PLT VOLUME 11.3 fl (7.5-11.1); NEUTROPHILS 65.6 % (42.8-82.8); PLATELET COUNT 184 K/MM3 (134-434); RDW 16.2 % (11.6-15.6); WHITE BLOOD COUNT 6.9 K/mm3 (4.0-10.0)
[2017-03-06 15:34] LABS: ALBUMIN 3.9 g/dl (3.4-5.0); BILIRUBIN,TOTAL 0.5 mg/dL (0.2-1.0); CALCIUM 9.4 mg/dL (8.5-10.1); COCKROFT - GAULT 24.1315; CREATININE 3.4 mg/dL (0.55-1.02); TOT PROT 8.4 g/dl (6.4-8.2)
--- NOTE | 2017-03-06 15:38 | PDOC ---
History of Present Illness - General Chief Complaint: Revisit, Lab Variance Stated Complaint: SENT BY PCP-POTASSIUM LEVEL 7 Time Seen by Provider: 03/06/17 14:58 History Source: Patient Exam Limitations: No Limitations - History of Present Illness Initial Comments: 03/06/17 15:38 61-year-old female sent in by PMD for evaluation of elevated potassium which was noted to be 7.0. Patient states had her blood drawn yesterday and was given blood transfusion here 2 weeks ago for anemia. Patient denies any chest pain, shortness of breath, lower extremity edema, fatigue, palpitations, headache, or change in bowel pattern or weight. Patient history of anemia, asthma, uterine CA , cardiac arrhythmias, COPD, CHF, diabetes, chronic kidney disease, and hypertension. Timing/Duration: unsure Associated Symptoms: reports: denies symptoms Past History - Past Medical History Allergies/Adverse Reactions: Allergies Allergy/AdvReac Type Severity Reaction Status Date / Time No Known Allergies Allergy Verified 03/06/17 14:17 Home Medications: Ambulatory Orders Aspirin 81 mg PO DAILY 01/18/14 Albuterol 0.083% Nebulizer Laura [Ventolin 0.083% Nebulizer Soln -] 1 neb NEB Q4H PRN #120 vial 11/19/14 Alprazolam [Xanax] 0.5 mg PO HS PRN #15 tablet 11/19/14 Hydralazine HCl [Apresoline -] 50 mg PO BID #60 tablet 11/19/14 Folic Acid 1 mg PO DAILY 01/09/16 Furosemide [Lasix -] 80 mg PO BID@0600,1400 #60 tablet 01/11/16 Atorvastatin Ca [Lipitor] 20 mg PO HS 11/25/16 Pramipexole Di-HCl [Mirapex] 0.25 mg PO DAILY 11/26/16 Lisinopril [Prinivil] 2.5 mg PO BID tablet 02/11/17 Metoprolol Succinate [Toprol Xl -] 50 mg PO DAILY #30 tablet 02/11/17 Anemia: Yes Asthma: Yes Cancer: Yes (UTERINE 2007) Cardiac Disorders: Yes (ARRYTHMIA) CVA: No COPD: Yes CHF: Yes Dementia: No Diabetes: Yes GI Disorders: Yes (NAUSEA AND VOMITING,COLON POLYP) Disorders: Yes HTN: Yes Hypercholesterolemia: Yes Liver Disease: No Suicide Attempt (Hx): No Seizures: No Thyroid Disease: No - Surgical History Abdominal Surgery: No Appendectomy: No Cardiac Surgery: No Cholecystectomy: No Lung Surgery: No Neurologic Surgery: No Orthopedic Surgery: No - Family Disease History Family Disease History: Other: Father (kidney disease), Brother (kidney disease) - Immunization History Immunization Up to Date: Yes - Psycho/Social/Smoking Cessation Hx Anxiety: No Suicidal Ideation: No Smoking Status: Yes Smoking History: Current every day smoker Years of Tobacco Use: 31 Have you smoked in the past 12 months: Yes Number of Cigarettes Smoked Daily: 7 Information on smoking cessation initiated: No 'Breaking Loose' booklet given: 02/06/17 Hx Alcohol Use: No Drug/Substance Use Hx: No Substance Use Type: None Hx Substance Use Treatment: No Patient Lives Alone: No Review of Systems - Review of Systems Able to Perform ROS?: Yes Constitutional: No: Symptoms Reported HEENTM: No: Symptoms Reported Respiratory: No: Symptoms reported Cardiac (ROS): No: Symptoms Reported ABD/GI: No: Symptoms Reported : No: Symptoms Reported Musculoskeletal: No: Symptoms Reported Integumentary: No: Symptoms Reported Neurological: No: Symptoms reported Endocrine: No: Symptoms Reported Hematologic/Lymphatic: No: Symptoms Reported *Physical Exam - Vital Signs Last Vital Signs Temp Pulse Resp BP Pulse Ox 98 F 77 19 121/69 100 03/06/17 14:17 03/06/17 14:17 03/06/17 14:17 03/06/17 14:17 03/06/17 14:17 - Physical Exam General Appearance: Yes: Nourished, Appropriately Dressed. No: Apparent Distress HEENT: positive: EOMI, SREEDHAR, Pharynx Normal (dry) Neck: positive: Normal Thyroid, Supple Respiratory/Chest: positive: Lungs Clear, Normal Breath Sounds. negative: Respiratory Distress, Accessory Muscle Use Cardiovascular: positive: Regular Rhythm, Regular Rate. negative: Murmur Vascular Pulses: Dorsalis-Pedis (R): 2+, Doralis-Pedis (L): 2+ Gastrointestinal/Abdominal: positive: Soft. negative: Tenderness Extremity: positive: Normal Capillary Refill. negative: Pedal Edema Integumentary: positive: Normal Color, Dry, Warm Neurologic: positive: Motor Strength 5/5 (ambulatory) Heart Score/ECG Review - ECG Intrepretation Rhythm: Regular Rhythm (rate 74 with LVH. prolonged QT at 492 ms) ED Treatment Course - LABORATORY CBC & Chemistry Diagram: 03/08/17 06:00 03/08/17 06:00 - RADIOLOGY Radiology Studies Ordered: Category Date Time Status CHEST X-RAY PORTABLE* [RAD] Stat Radiology 03/06/17 14:59 Ordered Medical Decision Making - Medical Decision Making 03/06/17 15:01 Patient with history of chronic kidney disease presents for evaluation of a potassium of 7.0 that was drawn yesterday. Patient is asymptomatic. Patient placed on secured entrance monitor, labs are initiated, urine was collected an EKG was ordered. 03/06/17 15:56 Chest x-ray negative for acute findings. Case discussed with Dr. Mcgrath and will admit to telemetry secondary to potassium 6.4. Patient ordered for Kayexalate and consultation was placed for Dr. Mateusz Farr. Laboratory Tests 03/06/17 03/06/17 13:00 13:00 WBC 6.9 Hgb 13.4 D Hct 42.4 D Plt Count 184 D Neutrophils % 65.6 Monocytes % 12.1 H Sodium 139 Potassium 6.4 H* D Chloride 112 H D Carbon Dioxide 19 L D Anion Gap 8 Random Glucose 134 H Magnesium 2.0 AST 24 ALT 42 D Alkaline Phosphatase 146 H D Total Protein 8.4 H D *DC/Admit/Observation/Transfer Diagnosis at time of Disposition: Acute hyperkalemia CKD (chronic kidney disease) Qualifiers: Chronic kidney disease stage: stage 4 (severe) Qualified Code(s): N18.4 - Chronic kidney disease, stage 4 (severe) - Discharge Dispostion Admit: Yes
[2017-03-06] MEDS ORDERED: SODIUM POLYSTYRENE SULFONATE 15 GM/60 ML BOTTLE PO ONE (15:50)
[2017-03-06] MEDS ORDERED: SODIUM POLYSTYRENE SULFONATE 15 GM/60 ML BOTTLE ONE (16:10)
--- NOTE | 2017-03-06 16:54 | HP ---
Admitting History and Physical - Admission History of Present Illness: 61-year-old female sent for evaluation of elevated potassium which was noted to be 7.0. Patient states had her blood drawn yesterday and was given blood transfusion 2 weeks ago. Patient denies any chest pain, shortness of breath, lower extremity edema, fatigue, palpitations, headache, or change in bowel pattern or weight. Patient history of anemia, asthma, uterine CA, cardiac arrhythmias, COPD, CHF, diabetes, chronic kidney disease, and hypertension. - Past Medical History Cardiovascular: Yes: CHF, HTN, Hyperlipdemia, Pulmonary Hypertension Pulmonary: Yes: Asthma, Sleep Apnea (on BIPAP at night) Gastrointestinal: Yes: GI Bleed (see HPI), Other (had EGD and colono 12/31, ) Renal/: Yes: Renal Failure, Renal Inusuff ...LMP: 11/17/07 Heme/Onc: Yes: Anemia Endocrine: Yes: Diabetes Mellitus (uncontrolled) - Smoking History Smoking history: Current every day smoker Have you smoked in the past 12 months: Yes Aproximately how many cigarettes per day: 7 - Alcohol/Substance Use Hx Alcohol Use: No - Social History ADL: Independent History of Recent Travel: No Home Medications - Allergies Allergies/Adverse Reactions: Allergies Allergy/AdvReac Type Severity Reaction Status Date / Time No Known Allergies Allergy Verified 03/06/17 14:17 - Home Medications Home Medications: Ambulatory Orders Aspirin 81 mg PO DAILY 01/18/14 Albuterol 0.083% Nebulizer Laura [Ventolin 0.083% Nebulizer Soln -] 1 neb NEB Q4H PRN #120 vial 11/19/14 Alprazolam [Xanax] 0.5 mg PO HS PRN #15 tablet 11/19/14 Hydralazine HCl [Apresoline -] 50 mg PO BID #60 tablet 11/19/14 Folic Acid 1 mg PO DAILY 01/09/16 Furosemide [Lasix -] 80 mg PO BID@0600,1400 #60 tablet 01/11/16 Atorvastatin Ca [Lipitor] 20 mg PO HS 11/25/16 Pramipexole Di-HCl [Mirapex] 0.25 mg PO DAILY 11/26/16 Lisinopril [Prinivil] 2.5 mg PO BID tablet 02/11/17 Metoprolol Succinate [Toprol Xl -] 50 mg PO DAILY #30 tablet 02/11/17 Review of Systems - Review of Systems Cardiovascular: denies: Chest Pain, Edema, Palpitations Respiratory: denies: SOB, Wheezing Physical Examination Vital Signs: Vital Signs Temperature 98 F 03/06/17 14:17 Pulse Rate 77 03/06/17 14:17 Respiratory Rate 19 03/06/17 14:17 Blood Pressure 121/69 03/06/17 14:17 O2 Sat by Pulse Oximetry (%) 100 03/06/17 14:17 Cardiovascular: Yes: Regular Rate and Rhythm Respiratory: Yes: Regular, CTA Bilaterally Gastrointestinal: Yes: Normal Bowel Sounds, Soft Edema: No Labs: CBC, BMP 03/06/17 13:00 03/06/17 13:00 Problem List - Problems (1) Acute hyperkalemia Assessment/Plan: kayaxelate tel repeat dc anneliese inhibitor renal consult Code(s): E87.5 - HYPERKALEMIA (2) CKD (chronic kidney disease) Assessment/Plan: DC DIURETIC AND MONITOR WILL NEED DIURETIC LONG-TERM Code(s): N18.9 - CHRONIC KIDNEY DISEASE, UNSPECIFIED Qualifiers: Chronic kidney disease stage: stage 4 (severe) Qualified Code(s): N18.4 - Chronic kidney disease, stage 4 (severe) (3) Anemia Assessment/Plan: STABLE MONITOR Code(s): D64.9 - ANEMIA, UNSPECIFIED Qualifiers: 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
[2017-03-06 19:23] LABS: CALCIUM 9.1 mg/dL (8.5-10.1); COCKROFT - GAULT 24.1315; CREATININE 3.4 mg/dL (0.55-1.02)
[2017-03-06] MEDS ORDERED: ALBUTEROL SO4 0.083% IH SOL 2.5 MG/3 ML VIAL.NEB. NEB PRN (20:00)
[2017-03-06] MEDS ORDERED: ALPRAZolam 0.25 MG TABLET PO PRN (20:00)
[2017-03-06] MEDS ORDERED: SODIUM CHLORIDE 1,000 ML IV SCH (20:15)
[2017-03-06] MEDS: HEPARIN NA (PORCINE) 5,000 UNITS/ML 1ML VIAL SQ SCH (21:55)
[2017-03-06] MEDS: hydrALAZINE HCL 50 MG TABLET (FP) PO SCH (21:55)
[2017-03-06] MEDS: ATORVASTATIN CA 20 MG TABLET (FP) PO SCH (21:55)
[2017-03-06 22:51] LABS: CALCIUM 8.7 mg/dL (8.5-10.1); COCKROFT - GAULT 24.1315; CREATININE 3.4 mg/dL (0.55-1.02)
[2017-03-07 07:15] LABS: BASOPHIL 0.5 % (0-2.0); EOSINOPHIL 3.8 % (0-4.5); MCHC 31.7 g/dl (32.0-36.0); MEAN CELL VOLUME 88.2 fl (80-96); MEAN PLT VOLUME 11.4 fl (7.5-11.1); NEUTROPHILS 65.8 % (42.8-82.8); PLATELET COUNT 173 K/MM3 (134-434); RDW 16.1 % (11.6-15.6); WHITE BLOOD COUNT 6.8 K/mm3 (4.0-10.0)
--- NOTE | 2017-03-07 07:30 | PN ---
Progress Note, Physician - Current Medication List Current Medications: Active Medications Acetaminophen (Tylenol -) 650 mg PO Q4H PRN PRN Reason: FEVER OR PAIN Albuterol Sulfate (Ventolin 0.083% Nebulizer Soln -) 1 amp NEB Q4H PRN PRN Reason: SHORT OF BREATH/WHEEZING Alprazolam (Xanax -) 0.5 mg PO HS PRN PRN Reason: ANXIETY Aspirin (Asa -) 81 mg PO DAILY [facility] Atorvastatin Calcium (Lipitor -) 20 mg PO HS [facility] Last Admin: 03/06/17 21:55 Dose: 20 mg Folic Acid (Folic Acid -) 1 mg PO DAILY [facility] Heparin Sodium (Porcine) (Heparin -) 5,000 unit SQ BID [facility] Last Admin: 03/06/17 21:55 Dose: 5,000 unit Hydralazine HCl (Apresoline -) 50 mg PO BID [facility] Last Admin: 03/06/17 21:55 Dose: 50 mg Sodium Chloride (Normal Saline -) 1,000 mls @ 42 mls/hr IV ASDIR [facility] Last Admin: 03/06/17 21:54 Dose: 42 mls/hr Metoprolol Succinate (Toprol Xl -) 50 mg PO DAILY [facility] Pramipexole Dihydrochloride (Mirapex -) 0.25 mg PO DAILY [facility] - Objective Vital Signs: Vital Signs Temperature 98.6 F 03/07/17 05:17 Pulse Rate 89 03/07/17 05:17 Respiratory Rate 20 03/07/17 06:45 Blood Pressure 115/58 03/07/17 05:17 O2 Sat by Pulse Oximetry (%) 100 03/07/17 06:45 Constitutional: Yes: Calm Neck: Yes: WNL Cardiovascular: Yes: WNL Respiratory: Yes: Other (mild sob) Gastrointestinal: Yes: WNL Edema: No Labs: CBC, BMP 03/07/17 05:35 Problem List - Problems (1) Acute hyperkalemia Code(s): E87.5 - HYPERKALEMIA (2) CKD (chronic kidney disease) Code(s): N18.9 - CHRONIC KIDNEY DISEASE, UNSPECIFIED Qualifiers: Chronic kidney disease stage: stage 4 (severe) Qualified Code(s): N18.4 - Chronic kidney disease, stage 4 (severe) (3) CHF (congestive heart failure) Code(s): I50.9 - HEART FAILURE, UNSPECIFIED Qualifiers: Congestive heart failure type: unspecified congestive heart failure type Congestive heart failure chronicity: acute on chronic Qualified Code(s ): I50.9 - Heart failure, unspecified (4) CKD (chronic kidney disease) stage 3, GFR 30-59 ml/min Code(s): N18.3 - CHRONIC KIDNEY DISEASE, STAGE 3 (MODERATE) Assessment/Plan (1) Acute hyperkalemia Assessment/Plan: kayaxelate tel repeat dc anneliese inhibitor renal consult Code(s): E87.5 - HYPERKALEMIA (2) CKD (chronic kidney disease) Assessment/Plan: DC DIURETIC AND MONITOR WILL NEED DIURETIC CUSTODIAL Code(s): N18.9 - CHRONIC KIDNEY DISEASE, UNSPECIFIED Qualifiers: Chronic kidney disease stage: stage 4 (severe) Qualified Code(s): N18.4 - Chronic kidney disease, stage 4 (severe) (3) Anemia Assessment/Plan: STABLE MONITOR Code(s): D64.9 - ANEMIA, UNSPECIFIED Qualifiers: 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
[2017-03-07 07:43] LABS: ALBUMIN 3.3 g/dl (3.4-5.0); BILIRUBIN,TOTAL 0.3 mg/dL (0.2-1.0); CALCIUM 8.5 mg/dL (8.5-10.1); CREATININE 3.2 mg/dL (0.55-1.02); TOT PROT 7.3 g/dl (6.4-8.2)
[2017-03-07 08:40] LABS: COCKROFT - GAULT 13.2685
[2017-03-07] MEDS: METOPROLOL SUCCINATE 50 MG TAB.SR.24H (FP) PO SCH (09:42)
[2017-03-07] MEDS: ASPIRIN 81 MG CHEWABLE TABLETS PO SCH (09:43)
[2017-03-07] MEDS: HEPARIN NA (PORCINE) 5,000 UNITS/ML 1ML VIAL SQ SCH ×2 (09:43→21:40)
[2017-03-07] MEDS: hydrALAZINE HCL 50 MG TABLET (FP) PO SCH ×2 (09:43→21:41)
[2017-03-07] MEDS: PRAMIPEXOLE DIHYDROCHLORIDE 0.25 MG TABLET PO SCH (09:43)
[2017-03-07] MEDS: FOLIC ACID 1 MG TABLET (FP) PO SCH (09:45)
--- NOTE | 2017-03-07 10:02 | EKG ---
Test Reason : Blood Pressure : / mmHG Vent. Rate : 074 BPM Atrial Rate : 074 BPM P-R Int : 158 ms QRS Dur : 094 ms QT Int : 444 ms P-R-T Axes : 064 -15 104 degrees QTc Int : 492 ms NORMAL SINUS RHYTHM MINIMAL VOLTAGE CRITERIA FOR LVH, MAY BE NORMAL VARIANT PROLONGED QT ABNORMAL ECG Confirmed by EVY DIALLO MD [id number]) on 03/07/2017 10:01:59 AM Referred By: Confirmed By:EVY DIALLO MD
--- NOTE | 2017-03-07 11:47 | CON.CARD ---
Cardiology Consult (text) - Consultation Consultation Note: History of Present Illness: 61 yo smoker with h/o mild systolic dysfunction, HTN, HL, pHTN, mod PARVEZ on cpap , CKD (bline CR 1.3-1.4), PAD, DM h/o GIB, sent to ER due to hyperkalemia. Pt has no complaints. No cp, sob, palps, dizzy, loc, pnd, orthopnea, le edema. Sees dr colvin for cardio. PMHx/PSHx: per hpi Social hx: current smoker, family hx: mother CVA in 60s, fatal periop event 67 (? [place]) ros per hpi; no nvd, cough, nasal congestion, rodriguez, vision changes, gib, hematuria , rash,muscle pains Home Medications Medication Instructions Recorded Aspirin 81 mg PO DAILY 01/18/14 Albuterol 0.083% Nebulizer Laura 1 neb NEB Q4H PRN #120 vial 11/19/14 [Ventolin 0.083% Nebulizer Soln -] Alprazolam [Xanax] 0.5 mg PO HS PRN #15 tablet 11/19/14 Hydralazine HCl [Apresoline -] 50 mg PO BID #60 tablet 11/19/14 Folic Acid 1 mg PO DAILY 01/09/16 Furosemide [Lasix -] 80 mg PO BID@0600,1400 #60 tablet 01/11/16 Atorvastatin Ca [Lipitor] 20 mg PO HS 11/25/16 Pramipexole Di-HCl [Mirapex] 0.25 mg PO DAILY 11/26/16 Lisinopril [Prinivil] 2.5 mg PO BID tablet 02/11/17 Metoprolol Succinate [Toprol Xl -] 50 mg PO DAILY #30 tablet 02/11/17 pe: Vital Signs Period Temp Pulse Resp BP Sys/Padron Pulse Ox Last 24 Hr 98 F-98.8 F 77-89 18-20 115-151/58-73 100-100 NAD, no jvd RRR nl s1, s2 no m/r/g cta bl nl eff aaox3 no le e/c/c abd nt nd pos bs pos dp pt, no carotid bruits no jaundice diaphoresis Laboratory Last Values WBC 6.8 K/mm3 (4.0-10.0) 03/07/17 05:35 RBC 4.56 M/mm3 (3.60-5.2) 03/07/17 05:35 Hgb 12.8 GM/dL (10.7-15.3) 03/07/17 05:35 Hct 40.3 % (32.4-45.2) 03/07/17 05:35 MCV 88.2 fl (80-96) 03/07/17 05:35 MCHC 31.7 g/dl (32.0-36.0) L 03/07/17 05:35 RDW 16.1 % (11.6-15.6) H 03/07/17 05:35 Plt Count 173 K/MM3 (134-434) 03/07/17 05:35 MPV 11.4 fl (7.5-11.1) H 03/07/17 05:35 Neutrophils % 65.8 % (42.8-82.8) 03/07/17 05:35 Lymphocytes % 19.3 % (8-40) 03/07/17 05:35 Monocytes % 10.6 % (3.8-10.2) H 03/07/17 05:35 Eosinophils % 3.8 % (0-4.5) 03/07/17 05:35 Basophils % 0.5 % (0-2.0) 03/07/17 05:35 Sodium 141 mmol/L (136-145) 03/07/17 05:35 Potassium 5.2 mmol/L (3.5-5.1) H 03/07/17 05:35 Chloride 115 mmol/L (98-107) H 03/07/17 05:35 Carbon Dioxide 18 mmol/L (21-32) L 03/07/17 05:35 Anion Gap 8 (8-16) 03/07/17 05:35 BUN 106 mg/dL (7-18) H* 03/07/17 05:35 Creatinine 3.2 mg/dL (0.55-1.02) H 03/07/17 05:35 Creat Clearance w eGFR 14.73 (>60) 03/07/17 05:35 POC Glucometer 94 UNITS (()) 03/07/17 05:48 Random Glucose 92 mg/dL (74-106) D 03/07/17 05:35 Calcium 8.5 mg/dL (8.5-10.1) 03/07/17 05:35 Magnesium 2.0 mg/dL (1.8-2.4) 03/06/17 13:00 Total Bilirubin 0.3 mg/dL (0.2-1.0) D 03/07/17 05:35 AST 22 U/L (15-37) 03/07/17 05:35 ALT 35 U/L (12-78) 03/07/17 05:35 Alkaline Phosphatase 124 U/L (45-117) H 03/07/17 05:35 Total Protein 7.3 g/dl (6.4-8.2) 03/07/17 05:35 Albumin 3.3 g/dl (3.4-5.0) L 03/07/17 05:35 Echo 06/2016: mod LVE, mod decr EF (no EF reported); mild RVE and mild HK; mild L /ANISH; valves WNL; no RVSP LHC 06/29: nl EDP; EF 40% (global); 50-60% OM1 (normal FFR); mild dz others tele: sr cxr: clear lungs ecg 03/06/17: sr, nl intervals, lvh with repol changes a/p: 61 yo smoker with h/o mild systolic dysfunction, HTN, HL, pHTN, mod PARVEZ on cpap, CKD (bline CR 1.3-1.4), PAD, DM h/o GIB, sent to ER due to hyperkalemia. hyperkalemia: -pt has hx of hyperkalemia but given her chf she was started on low dose lisinopril with recent increase in dose last month. Possibly this was cause of elevated k now. Agree with dc anneliese-i. -k improving, cont to monitor malina on ckd: -baseline cr 2.3-2.4, now in 3s here -holding lasix, trend cr -renal following chronic systolic chf: - Known biventricular cardiomyopathy/pHTN. - vol stable, wt near her baseline of around 200 lbs - home diuretic regimen lasix 80 mg po bid-->holding lasix for now due to malina - cont bb, holding anneliese as above Mod PARVEZ - con't cpap HTN - con't hydralazine, metoprolol HL - con't statin anemia, iron-deficient - chronic, follows closely with dr white/candice/shasta as outpt - counts stable here
--- NOTE | 2017-03-07 18:06 | CONSULT ---
Consult Consult Specialty:: Nephrology Reason for Consultation:: hyperkalemia - History of Present Illness Chief Complaint: sent in for hyperkalemia History of Present Illness: Pt is a 61 year old female with pmhx of CKD, CHR, COPD, uterine cancer, ashtma, and anemia who was sent in for hyperkalemia. She was seen by me in the hospital last month. Pt follows with Dr Kay for renal however she has missed her last few appointments. She says she feels well. She denies shortness of breath or palpitations. She denies dysuria or hematuria. - History Source History Provided By: Patient, Medical Record - Past Medical History Cardio/Vascular: Yes: CHF, HTN, Hyperlipdemia, Pulmonary Hypertension Pulmonary: Yes: Asthma, Sleep Apnea (on BIPAP at night) Gastrointestinal: Yes: GI Bleed (see HPI), Other (had EGD and colono 12/31, ) Renal/: Yes: Renal Failure, Renal Inusuff, Other (hyperkalemia) ...LMP: 11/17/07 Endocrine: Yes: Diabetes Mellitus (uncontrolled) - Alcohol/Substance Use Hx Alcohol Use: No - Smoking History Smoking history: Current every day smoker Have you smoked in the past 12 months: Yes Aproximately how many cigarettes per day: 7 - Social History ADL: Independent History of Recent Travel: No Home Medications - Allergies Allergies/Adverse Reactions: Allergies Allergy/AdvReac Type Severity Reaction Status Date / Time No Known Allergies Allergy Verified 03/06/17 14:17 - Home Medications Home Medications: Ambulatory Orders Aspirin 81 mg PO DAILY 01/18/14 Albuterol 0.083% Nebulizer Laura [Ventolin 0.083% Nebulizer Soln -] 1 neb NEB Q4H PRN #120 vial 11/19/14 Alprazolam [Xanax] 0.5 mg PO HS PRN #15 tablet 11/19/14 Hydralazine HCl [Apresoline -] 50 mg PO BID #60 tablet 11/19/14 Folic Acid 1 mg PO DAILY 01/09/16 Furosemide [Lasix -] 80 mg PO BID@0600,1400 #60 tablet 01/11/16 Atorvastatin Ca [Lipitor] 20 mg PO HS 11/25/16 Pramipexole Di-HCl [Mirapex] 0.25 mg PO DAILY 11/26/16 Lisinopril [Prinivil] 2.5 mg PO BID tablet 02/11/17 Metoprolol Succinate [Toprol Xl -] 50 mg PO DAILY #30 tablet 02/11/17 Family Disease History - Family Disease History Family History: Denies Review of Systems - Review of Systems Constitutional: reports: No Symptoms Eyes: reports: No Symptoms HENT: reports: No Symptoms Neck: reports: No Symptoms Cardiovascular: reports: No Symptoms Respiratory: reports: No Symptoms Gastrointestinal: reports: No Symptoms Genitourinary: reports: No Symptoms Musculoskeletal: reports: No Symptoms Integumentary: reports: No Symptoms Neurological: reports: No Symptoms Endocrine: reports: No Symptoms Hematology/Lymphatic: reports: No Symptoms Physical Exam Vital Signs: Vital Signs Temperature 98 F 03/07/17 16:31 Pulse Rate 78 03/07/17 16:31 Respiratory Rate 20 03/07/17 16:31 Blood Pressure 143/68 03/07/17 16:31 O2 Sat by Pulse Oximetry (%) 98 03/07/17 09:00 Constitutional: Yes: Calm Eyes: Yes: Conjunctiva Clear HENT: Yes: Atraumatic Cardiovascular: Yes: S1, S2 Respiratory: Yes: CTA Bilaterally Gastrointestinal: Yes: Soft Renal/: Yes: WNL Musculoskeletal: Yes: WNL Edema: Yes Edema: LLE: Trace, RLE: Trace Neurological: Yes: Oriented Psychiatric: Yes: Oriented Labs: CBC, BMP 03/07/17 05:35 03/07/17 05:35 Laboratory Tests 02/10/17 03/06/17 03/06/17 05:35 13:00 18:22 WBC Hgb Plt Count Sodium Potassium 6.4 H* D 6.2 H* Chloride Carbon Dioxide Anion Gap BUN Creatinine 2.3 H 03/06/17 03/07/17 03/07/17 21:40 05:35 05:35 WBC 6.8 Hgb 12.8 Plt Count 173 Sodium 141 Potassium 6.4 H* 5.2 H Chloride 115 H Carbon Dioxide 18 L Anion Gap 8 BUN 106 H* Creatinine 3.2 H Imaging - Results Chest X-ray: Report Reviewed Problem List - Problems (1) Acute hyperkalemia Code(s): E87.5 - HYPERKALEMIA (2) CKD (chronic kidney disease) Code(s): N18.9 - CHRONIC KIDNEY DISEASE, UNSPECIFIED Qualifiers: Chronic kidney disease stage: stage 4 (severe) Qualified Code(s): N18.4 - Chronic kidney disease, stage 4 (severe) (3) Acute CHF (congestive heart failure) Code(s): I50.9 - HEART FAILURE, UNSPECIFIED (4) Anemia Code(s): D64.9 - ANEMIA, UNSPECIFIED Qualifiers: 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 Qualified Code(s): D50.0 - Iron deficiency anemia secondary to blood loss ( chronic) (5) Asthma Code(s): J45.909 - UNSPECIFIED ASTHMA, UNCOMPLICATED (6) Benign hypertension Code(s): I10 - ESSENTIAL (PRIMARY) HYPERTENSION (7) CAD (coronary artery disease) Code(s): I25.10 - ATHSCL HEART DISEASE OF [place] CORONARY ARTERY W/O ANG PCTRS Qualifiers: Coronary Disease-Associated Artery/Lesion type: [place] coronary artery Associated angina: with other forms of angina pectoris (8) COPD (chronic obstructive pulmonary disease) Code(s): J44.9 - CHRONIC OBSTRUCTIVE PULMONARY DISEASE, UNSPECIFIED (9) HTN (hypertension) Code(s): I10 - ESSENTIAL (PRIMARY) HYPERTENSION Assessment/Plan Current Medications Generic Name Dose Route Start Last Admin Trade Name Freq PRN Reason Stop Dose Admin Acetaminophen 650 mg 03/06/17 20:01 Tylenol - PO Q4H PRN FEVER OR PAIN Albuterol Sulfate 1 amp 03/06/17 20:00 Ventolin 0.083% Nebulizer Soln - NEB Q4H PRN SHORT OF BREATH/WHEEZING Alprazolam 0.5 mg 03/06/17 20:00 Xanax - PO HS PRN ANXIETY Aspirin 81 mg 03/07/17 10:00 03/07/17 09:43 Asa - PO 81 mg DAILY ALDO Administration Atorvastatin Calcium 20 mg 03/06/17 22:00 03/06/17 21:55 Lipitor - PO 20 mg HS ALDO Administration Folic Acid 1 mg 03/07/17 10:00 03/07/17 09:45 Folic Acid - PO 1 mg DAILY ALDO Administration Heparin Sodium (Porcine) 5,000 unit 03/06/17 22:00 03/07/17 09:43 Heparin - SQ 5,000 unit BID ALDO Administration Hydralazine HCl 50 mg 03/06/17 22:00 03/07/17 09:43 Apresoline - PO 50 mg BID ALDO Administration Sodium Chloride 1,000 mls @ 42 mls/hr 03/06/17 20:15 03/06/17 21:54 Normal Saline - IV 42 mls/hr ASDIR ALDO Administration Metoprolol Succinate 50 mg 03/07/17 10:00 03/07/17 09:42 Toprol Xl - PO 50 mg DAILY ALDO Administration Pramipexole Dihydrochloride 0.25 mg 03/07/17 10:00 03/07/17 09:43 Mirapex - PO 0.25 mg DAILY ALDO Administration Impression 1. CKD 2. anemia 3. CHF 4. HTN 5. DM 6. hyperlipidemia 7. anxiety 8. uterine cancer 9. hx GI bleed 10. acute hyperkalemia Plan - potassium is improving - change fluids to 1/2ns - repeat labs in am - would not restart anneliese - monitor on tele - discussed renal diet with pt - monitor blood pressure - will monitor renal function, creatinine is above baseline - will follow pt Dr Moore
[2017-03-07] MEDS: SODIUM CHLORIDE 0.45% 1,000 ML IV SCH (18:49)
[2017-03-07] MEDS: ATORVASTATIN CA 20 MG TABLET (FP) PO SCH (21:41)
[2017-03-08 08:07] LABS: BASOPHIL 0.6 % (0-2.0); EOSINOPHIL 3.9 % (0-4.5); MCH 27.9 pg (25.7-33.7); MCHC 31.6 g/dl (32.0-36.0); MEAN CELL VOLUME 88.4 fl (80-96); NEUTROPHILS 67.1 % (42.8-82.8); PLATELET COUNT 143 K/MM3 (134-434); RDW 15.8 % (11.6-15.6); WHITE BLOOD COUNT 6.9 K/mm3 (4.0-10.0)
--- NOTE | 2017-03-08 08:25 | PN ---
Progress Note, Physician Chief Complaint: hyperK/lyssa History of Present Illness: no sob, orthopnea no leg swelling no cp, palpit - Current Medication List Current Medications: Active Medications Acetaminophen (Tylenol -) 650 mg PO Q4H PRN PRN Reason: FEVER OR PAIN Albuterol Sulfate (Ventolin 0.083% Nebulizer Soln -) 1 amp NEB Q4H PRN PRN Reason: SHORT OF BREATH/WHEEZING Alprazolam (Xanax -) 0.5 mg PO HS PRN PRN Reason: ANXIETY Aspirin (Asa -) 81 mg PO DAILY [facility] Last Admin: 03/07/17 09:43 Dose: 81 mg Atorvastatin Calcium (Lipitor -) 20 mg PO HS [facility] Last Admin: 03/07/17 21:41 Dose: 20 mg Folic Acid (Folic Acid -) 1 mg PO DAILY [facility] Last Admin: 03/07/17 09:45 Dose: 1 mg Heparin Sodium (Porcine) (Heparin -) 5,000 unit SQ BID [facility] Last Admin: 03/07/17 21:40 Dose: 5,000 unit Hydralazine HCl (Apresoline -) 50 mg PO BID [facility] Last Admin: 03/07/17 21:41 Dose: 50 mg Sodium Chloride (1/2 Normal Saline) 1,000 mls @ 42 mls/hr IV ASDIR [facility] Last Admin: 03/07/17 18:49 Dose: 42 mls/hr Metoprolol Succinate (Toprol Xl -) 50 mg PO DAILY [facility] Last Admin: 03/07/17 09:42 Dose: 50 mg Pramipexole Dihydrochloride (Mirapex -) 0.25 mg PO DAILY [facility] Last Admin: 03/07/17 09:43 Dose: 0.25 mg - Objective Vital Signs: Vital Signs Temperature 98.8 F 03/08/17 05:00 Pulse Rate 72 03/08/17 05:00 Respiratory Rate 20 03/08/17 05:00 Blood Pressure 142/65 03/08/17 05:00 O2 Sat by Pulse Oximetry (%) 95 03/07/17 20:46 Constitutional: Yes: Well Nourished, No Distress, Calm Cardiovascular: Yes: Regular Rate and Rhythm, S1, S2. No: JVD, Gallop, S3 Respiratory: Yes: Regular, CTA Bilaterally. No: Accessory Muscle Use, Rales, Wheezes Extremities: No: Cold Edema: No Neurological: Yes: Alert, Oriented Psychiatric: No: Agitated Labs: CBC, BMP 03/08/17 06:00 - ....Imaging EKG: Other (tele: NSR) Assessment/Plan Echo 06/2016: mod LVE, mod decr EF (no EF reported); mild RVE and mild HK; mild L /ANISH; valves WNL; no RVSP LHC 06/29: nl EDP; EF 40% (global); 50-60% OM1 (normal FFR); mild dz others cxr: clear lungs ecg 03/06/17: sr, nl intervals, lvh with repol changes a/p: 61 yo smoker with h/o mild systolic dysfunction, HTN, HL, pHTN, mod PARVEZ on cpap, CKD (bline CR 1.3-1.4), PAD, DM h/o GIB, sent to ER due to hyperkalemia. hyperkalemia: -pt has known hx of hyperkalemia managed with standing kayexalate by renal ( digiorno) -has been at times noncompliant with kayex dosing in past--AGAIN ADMITS TO SELF- D/C'D KAYEXALATE "BC I WAS DOING WELL" -off lisinopril -K improving, mgmt per renal lyssa on ckd: -baseline cr 2.3-2.4, now in 3s here -? overdiuresis -cont ivf per renal, observe for chf chronic systolic chf: - Known biventricular (nonischemic) cardiomyopathy/pHTN. - wt was 199, down from 214 when diuresed recently here for chf - current wt 192, likely dry, +LYSSA--appears euvolemic - holding lasix, getting fluids cautiously - home diuretic regimen lasix 80 mg po bid--on hold for now - cont bb - recent EF worsened on echo, attempt to re-inititate low dose EVELINA with standing kayexalate failed (acute hyperK again due to noncompliance with kayexalate agein)--no RAAS blockers here Mod PARVEZ - con't cpap HTN - controlled - con't hydralazine, metoprolol HL - con't statin anemia, iron-deficient - chronic, follows closely with dr white/candice/shasta as outpt - counts stable here NO INDICATION FOR TELE--D/C'D
[2017-03-08] MEDS: ACETAMINOPHEN 325 MG TABLET (FP) PO PRN (08:36)
[2017-03-08 08:45] LABS: ALBUMIN 3.1 g/dl (3.4-5.0); CALCIUM 8.7 mg/dL (8.5-10.1)
[2017-03-08 08:49] LABS: BILIRUBIN,TOTAL 0.4 mg/dL (0.2-1.0); COCKROFT - GAULT 27.965; CREATININE 2.9 mg/dL (0.55-1.02); TOT PROT 6.9 g/dl (6.4-8.2)
[2017-03-08] MEDS: ASPIRIN 81 MG CHEWABLE TABLETS PO SCH (09:17)
[2017-03-08] MEDS: METOPROLOL SUCCINATE 50 MG TAB.SR.24H (FP) PO SCH (09:18)
[2017-03-08] MEDS: FOLIC ACID 1 MG TABLET (FP) PO SCH (09:18)
[2017-03-08] MEDS: PRAMIPEXOLE DIHYDROCHLORIDE 0.25 MG TABLET PO SCH (09:18)
[2017-03-08] MEDS: hydrALAZINE HCL 50 MG TABLET (FP) PO SCH ×2 (09:18→21:52)
[2017-03-08] MEDS: HEPARIN NA (PORCINE) 5,000 UNITS/ML 1ML VIAL SQ SCH ×2 (09:19→21:52)
[2017-03-08] MEDS: cefTRIAXone 1 GM/50 ML BAG (PRE-DOCKED) IVPB SCH (10:01)
--- NOTE | 2017-03-08 10:13 | PN ---
Progress Note, Physician Chief Complaint: C/O DRAINING EAR INFECTION - Current Medication List Current Medications: Active Medications Acetaminophen (Tylenol -) 650 mg PO Q4H PRN PRN Reason: FEVER OR PAIN Last Admin: 03/08/17 08:36 Dose: 650 mg Albuterol Sulfate (Ventolin 0.083% Nebulizer Soln -) 1 amp NEB Q4H PRN PRN Reason: SHORT OF BREATH/WHEEZING Alprazolam (Xanax -) 0.5 mg PO HS PRN PRN Reason: ANXIETY Aspirin (Asa -) 81 mg PO DAILY [facility] Last Admin: 03/08/17 09:17 Dose: 81 mg Atorvastatin Calcium (Lipitor -) 20 mg PO HS [facility] Last Admin: 03/07/17 21:41 Dose: 20 mg Ceftriaxone Sodium (Rocephin 1gm Ivpb (Pre-Docked)) 1 gm IVPB DAILY [facility] Last Admin: 03/08/17 10:01 Dose: 1 gm Folic Acid (Folic Acid -) 1 mg PO DAILY [facility] Last Admin: 03/08/17 09:18 Dose: 1 mg Heparin Sodium (Porcine) (Heparin -) 5,000 unit SQ BID [facility] Last Admin: 03/08/17 09:19 Dose: 5,000 unit Hydralazine HCl (Apresoline -) 50 mg PO BID [facility] Last Admin: 03/08/17 09:18 Dose: 50 mg Sodium Chloride (1/2 Normal Saline) 1,000 mls @ 42 mls/hr IV ASDIR [facility] Last Admin: 03/07/17 18:49 Dose: 42 mls/hr Metoprolol Succinate (Toprol Xl -) 50 mg PO DAILY [facility] Last Admin: 03/08/17 09:18 Dose: 50 mg Pramipexole Dihydrochloride (Mirapex -) 0.25 mg PO DAILY [facility] Last Admin: 03/08/17 09:18 Dose: 0.25 mg - Objective Vital Signs: Vital Signs Temperature 99 F 03/08/17 08:54 Pulse Rate 72 03/08/17 08:54 Respiratory Rate 20 03/08/17 08:54 Blood Pressure 142/72 03/08/17 08:54 O2 Sat by Pulse Oximetry (%) 95 03/07/17 20:46 Constitutional: Yes: Calm HENT: Yes: Other (R EAR CLEAR DISCHARGE. MASTOID NT) Neck: Yes: WNL Cardiovascular: Yes: WNL Respiratory: Yes: WNL Gastrointestinal: Yes: WNL Labs: CBC, BMP 03/08/17 06:00 03/08/17 06:00 Problem List - Problems (1) Acute hyperkalemia Code(s): E87.5 - HYPERKALEMIA (2) CKD (chronic kidney disease) Code(s): N18.9 - CHRONIC KIDNEY DISEASE, UNSPECIFIED Qualifiers: Chronic kidney disease stage: stage 4 (severe) Qualified Code(s): N18.4 - Chronic kidney disease, stage 4 (severe) (3) Otitis media Code(s): H66.90 - OTITIS MEDIA, UNSPECIFIED, UNSPECIFIED EAR (4) Anemia Code(s): D64.9 - ANEMIA, UNSPECIFIED Qualifiers: 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 Qualified Code(s): D50.0 - Iron deficiency anemia secondary to blood loss ( chronic) (5) CAD (coronary artery disease) Code(s): I25.10 - ATHSCL HEART DISEASE OF [place] CORONARY ARTERY W/O ANG PCTRS Qualifiers: Coronary Disease-Associated Artery/Lesion type: [place] coronary artery Associated angina: with other forms of angina pectoris (6) CHF (congestive heart failure) Code(s): I50.9 - HEART FAILURE, UNSPECIFIED Qualifiers: Congestive heart failure type: unspecified congestive heart failure type Congestive heart failure chronicity: acute on chronic Qualified Code(s ): I50.9 - Heart failure, unspecified (7) COPD (chronic obstructive pulmonary disease) Code(s): J44.9 - CHRONIC OBSTRUCTIVE PULMONARY DISEASE, UNSPECIFIED (8) Diabetes mellitus Code(s): E11.9 - TYPE 2 DIABETES MELLITUS WITHOUT COMPLICATIONS Assessment/Plan (1) Acute hyperkalemia Assessment/Plan: kayaxelate tel repeat dc anneliese inhibitor renal consult Code(s): E87.5 - HYPERKALEMIA (2) CKD (chronic kidney disease) Assessment/Plan: DC DIURETIC AND MONITOR WILL NEED DIURETIC ELECTRONIC TRANSACTION IMPLEMENTER Code(s): N18.9 - CHRONIC KIDNEY DISEASE, UNSPECIFIED Qualifiers: Chronic kidney disease stage: stage 4 (severe) Qualified Code(s): N18.4 - Chronic kidney disease, stage 4 (severe) (3) Anemia Assessment/Plan: STABLE MONITOR Code(s): D64.9 - ANEMIA, UNSPECIFIED Qualifiers: 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
--- NOTE | 2017-03-08 14:57 | PN ---
Progress Note, Physician History of Present Illness: Renal F/U Pr's K rising even off the ACEi She was on Kayexalate every other day [employer] She has been on a low K diet and been receiving IVF for hydration - Current Medication List Current Medications: Active Medications Acetaminophen (Tylenol -) 650 mg PO Q4H PRN PRN Reason: FEVER OR PAIN Last Admin: 03/08/17 08:36 Dose: 650 mg Albuterol Sulfate (Ventolin 0.083% Nebulizer Soln -) 1 amp NEB Q4H PRN PRN Reason: SHORT OF BREATH/WHEEZING Alprazolam (Xanax -) 0.5 mg PO HS PRN PRN Reason: ANXIETY Aspirin (Asa -) 81 mg PO DAILY [facility] Last Admin: 03/08/17 09:17 Dose: 81 mg Atorvastatin Calcium (Lipitor -) 20 mg PO HS [facility] Last Admin: 03/07/17 21:41 Dose: 20 mg Ceftriaxone Sodium (Rocephin 1gm Ivpb (Pre-Docked)) 1 gm IVPB DAILY [facility] Last Admin: 03/08/17 10:01 Dose: 1 gm Folic Acid (Folic Acid -) 1 mg PO DAILY [facility] Last Admin: 03/08/17 09:18 Dose: 1 mg Heparin Sodium (Porcine) (Heparin -) 5,000 unit SQ BID [facility] Last Admin: 03/08/17 09:19 Dose: 5,000 unit Hydralazine HCl (Apresoline -) 50 mg PO BID [facility] Last Admin: 03/08/17 09:18 Dose: 50 mg Sodium Chloride (1/2 Normal Saline) 1,000 mls @ 42 mls/hr IV ASDIR [facility] Last Admin: 03/07/17 18:49 Dose: 42 mls/hr Metoprolol Succinate (Toprol Xl -) 50 mg PO DAILY [facility] Last Admin: 03/08/17 09:18 Dose: 50 mg Ciprodex Otic Suspension-Patient's Own Medication (Non -Formulary) 5 each AD BID [facility] Pramipexole Dihydrochloride (Mirapex -) 0.25 mg PO DAILY [facility] Last Admin: 03/08/17 09:18 Dose: 0.25 mg - Objective Vital Signs: Vital Signs Temperature 99 F 03/08/17 08:54 Pulse Rate 72 03/08/17 08:54 Respiratory Rate 20 03/08/17 08:54 Blood Pressure 142/72 03/08/17 08:54 O2 Sat by Pulse Oximetry (%) 95 03/07/17 20:46 Constitutional: Yes: No Distress Cardiovascular: Yes: S1, S2 Respiratory: Yes: CTA Bilaterally Gastrointestinal: Yes: Soft. No: Tenderness, Rebound Edema: No Labs: CBC, BMP 03/08/17 06:00 03/08/17 06:00 Assessment/Plan Impression 1. CKD with tendency towards hyperkalemia 2. Anemia 3. CHF 4. HTN 5. DM 6. hyperlipidemia 7. Anxiety 8. uterine cancer 9. hx GI bleed Plan Kayexalate 30 grams PO X1 Continue with IVF as ordered Rpt labs in am Low K diet- Reviewed with pt the foods that need to be restricted Dr Pagan
[2017-03-08] MEDS ORDERED: SODIUM POLYSTYRENE SULFONATE 15 GM/60 ML BOTTLE PO ONE (14:58)
[2017-03-08] MEDS: SODIUM CHLORIDE 0.45% 1,000 ML IV SCH (15:28)
[2017-03-08] MEDS: CIPRODEX AD SCH ×2 (15:29→22:04)
[2017-03-08] MEDS: INSULIN SLIDING SCALE (NOVOLOG) 1 VIAL SQ SCH (21:57)
[2017-03-08] MEDS: ATORVASTATIN CA 20 MG TABLET (FP) PO SCH (21:58)
[2017-03-09] MEDS: ACETAMINOPHEN 325 MG TABLET (FP) PO PRN (05:57)
[2017-03-09] MEDS: INSULIN SLIDING SCALE (NOVOLOG) 1 VIAL SQ SCH ×4 (06:05→22:40)
[2017-03-09 08:29] LABS: BASOPHIL 0.5 % (0-2.0); EOSINOPHIL 3.4 % (0-4.5); MCH 27.7 pg (25.7-33.7); MCHC 31.4 g/dl (32.0-36.0); MEAN CELL VOLUME 88.2 fl (80-96); MEAN PLT VOLUME 10.7 fl (7.5-11.1); NEUTROPHILS 64.4 % (42.8-82.8); PLATELET COUNT 148 K/MM3 (134-434); RDW 15.8 % (11.6-15.6); WHITE BLOOD COUNT 6.4 K/mm3 (4.0-10.0)
--- NOTE | 2017-03-09 08:36 | PN ---
Progress Note, Physician Chief Complaint: LYSSA, hyperkalemia History of Present Illness: nauseated this am; no sob, orthopnea, leg swelling no cp, palpit - Current Medication List Current Medications: Active Medications Acetaminophen (Tylenol -) 650 mg PO Q4H PRN PRN Reason: FEVER OR PAIN Last Admin: 03/09/17 05:57 Dose: 650 mg Albuterol Sulfate (Ventolin 0.083% Nebulizer Soln -) 1 amp NEB Q4H PRN PRN Reason: SHORT OF BREATH/WHEEZING Alprazolam (Xanax -) 0.5 mg PO HS PRN PRN Reason: ANXIETY Aspirin (Asa -) 81 mg PO DAILY [facility] Last Admin: 03/08/17 09:17 Dose: 81 mg Atorvastatin Calcium (Lipitor -) 20 mg PO HS [facility] Last Admin: 03/08/17 21:58 Dose: 20 mg Ceftriaxone Sodium (Rocephin 1gm Ivpb (Pre-Docked)) 1 gm IVPB DAILY [facility] Last Admin: 03/08/17 10:01 Dose: 1 gm Folic Acid (Folic Acid -) 1 mg PO DAILY [facility] Last Admin: 03/08/17 09:18 Dose: 1 mg Heparin Sodium (Porcine) (Heparin -) 5,000 unit SQ BID [facility] Last Admin: 03/08/17 21:52 Dose: 5,000 unit Hydralazine HCl (Apresoline -) 50 mg PO BID [facility] Last Admin: 03/08/17 21:52 Dose: 50 mg Sodium Chloride (1/2 Normal Saline) 1,000 mls @ 42 mls/hr IV ASDIR [facility] Last Admin: 03/08/17 15:28 Dose: 42 mls/hr Insulin Aspart (Novolog Vial Sliding Scale -) 1 vial SQ ACHS [facility] PRN Reason: Protocol Last Admin: 03/09/17 06:05 Dose: Not Given Metoprolol Succinate (Toprol Xl -) 50 mg PO DAILY [facility] Last Admin: 03/08/17 09:18 Dose: 50 mg Ciprodex Otic Suspension-Patient's Own Medication (Non -Formulary) 5 each AD BID [facility] Last Admin: 03/08/17 22:04 Dose: 5 each Pramipexole Dihydrochloride (Mirapex -) 0.25 mg PO DAILY [facility] Last Admin: 03/08/17 09:18 Dose: 0.25 mg - Objective Vital Signs: Vital Signs Temperature 96.8 F L 03/09/17 07:05 Pulse Rate 85 03/09/17 07:05 Respiratory Rate 20 03/09/17 07:05 Blood Pressure 146/68 03/09/17 07:05 O2 Sat by Pulse Oximetry (%) 96 03/08/17 21:00 Constitutional: Yes: Well Nourished, No Distress, Calm Cardiovascular: Yes: Regular Rate and Rhythm, S1, S2. No: Gallop, Murmur Respiratory: Yes: Regular, CTA Bilaterally. No: Accessory Muscle Use, Rales, Wheezes Extremities: No: Cold Edema: No Neurological: Yes: Alert, Oriented Psychiatric: No: Agitated Assessment/Plan Echo 06/2016: mod LVE, mod decr EF (no EF reported); mild RVE and mild HK; mild L /ANISH; valves WNL; no RVSP LHC 06/29: nl EDP; EF 40% (global); 50-60% OM1 (normal FFR); mild dz others cxr: clear lungs ecg 03/06/17: sr, nl intervals, lvh with repol changes a/p: 61 yo smoker with h/o mild systolic dysfunction, HTN, HL, pHTN, mod PARVEZ on cpap, CKD (bline CR 1.3-1.4), PAD, DM h/o GIB, sent to ER due to hyperkalemia. hyperkalemia: -pt has known hx of hyperkalemia managed with standing kayexalate by renal ( digiorno) -has been at times noncompliant with kayex dosing in past--AGAIN ADMITS TO SELF- D/C'D KAYEXALATE "BC I WAS DOING WELL" -off lisinopril permanently -K improving, mgmt per renal lyssa on ckd: -baseline cr 2.3-2.4, now in 3s here -wt way down from prior dry wt -likely overdiuresed -cont ivf per renal, observe for chf, monitor daily labs trend chronic systolic chf: - Known biventricular (nonischemic) cardiomyopathy/pHTN. - wt was 199, down from 214 when diuresed recently here for chf - current wt 192, likely dry, +LYSSA--appears euvolemic - home diuretic regimen lasix 80 mg po bid--on hold for now due to lyssa/ hypovolemia - cautious ivf per renal--no signs chf - cont bb - recent EF worsened on echo, attempt to re-inititate low dose EVELINA with standing kayexalate failed (acute hyperK again due to noncompliance with kayexalate agein)--not a candidate for RAAS blockers Mod PARVEZ - con't cpap HTN - controlled - con't hydralazine, metoprolol HL - con't statin anemia, iron-deficient - chronic, follows closely with dr white/candice/shasta as outpt - counts stable here
[2017-03-09 08:59] LABS: ALBUMIN 3.3 g/dl (3.4-5.0); CALCIUM 8.7 mg/dL (8.5-10.1); COCKROFT - GAULT 33.1925; CREATININE 2.4 mg/dL (0.55-1.02)
[2017-03-09 09:01] LABS: BILIRUBIN,TOTAL 0.4 mg/dL (0.2-1.0); TOT PROT 7.3 g/dl (6.4-8.2)
[2017-03-09] MEDS: HEPARIN NA (PORCINE) 5,000 UNITS/ML 1ML VIAL SQ SCH ×2 (09:26→22:32)
[2017-03-09] MEDS: ASPIRIN 81 MG CHEWABLE TABLETS PO SCH (09:26)
[2017-03-09] MEDS: METOPROLOL SUCCINATE 50 MG TAB.SR.24H (FP) PO SCH (09:26)
[2017-03-09] MEDS: cefTRIAXone 1 GM/50 ML BAG (PRE-DOCKED) IVPB SCH (09:26)
[2017-03-09] MEDS: PRAMIPEXOLE DIHYDROCHLORIDE 0.25 MG TABLET PO SCH (09:26)
[2017-03-09] MEDS: FOLIC ACID 1 MG TABLET (FP) PO SCH (09:26)
[2017-03-09] MEDS: hydrALAZINE HCL 50 MG TABLET (FP) PO SCH ×3 (09:26→22:32)
[2017-03-09] MEDS: SODIUM CHLORIDE 0.45% 1,000 ML IV SCH ×2 (09:27→22:32)
[2017-03-09] MEDS: CIPRODEX AD SCH ×2 (09:28→22:32)
--- NOTE | 2017-03-09 10:23 | PN ---
Progress Note, Physician History of Present Illness: Renal F/U Pt with less of an earache on IV abx Today's K down to 5 and Cr/BUN also better - Current Medication List Current Medications: Active Medications Acetaminophen (Tylenol -) 650 mg PO Q4H PRN PRN Reason: FEVER OR PAIN Last Admin: 03/09/17 05:57 Dose: 650 mg Albuterol Sulfate (Ventolin 0.083% Nebulizer Soln -) 1 amp NEB Q4H PRN PRN Reason: SHORT OF BREATH/WHEEZING Alprazolam (Xanax -) 0.5 mg PO HS PRN PRN Reason: ANXIETY Aspirin (Asa -) 81 mg PO DAILY [facility] Last Admin: 03/09/17 09:26 Dose: 81 mg Atorvastatin Calcium (Lipitor -) 20 mg PO HS [facility] Last Admin: 03/08/17 21:58 Dose: 20 mg Ceftriaxone Sodium (Rocephin 1gm Ivpb (Pre-Docked)) 1 gm IVPB DAILY [facility] Last Admin: 03/09/17 09:26 Dose: 1 gm Folic Acid (Folic Acid -) 1 mg PO DAILY [facility] Last Admin: 03/09/17 09:26 Dose: 1 mg Heparin Sodium (Porcine) (Heparin -) 5,000 unit SQ BID [facility] Last Admin: 03/09/17 09:26 Dose: 5,000 unit Hydralazine HCl (Apresoline -) 50 mg PO BID [facility] Last Admin: 03/09/17 09:26 Dose: 50 mg Sodium Chloride (1/2 Normal Saline) 1,000 mls @ 42 mls/hr IV ASDIR [facility] Last Admin: 03/09/17 09:27 Dose: Not Given Insulin Aspart (Novolog Vial Sliding Scale -) 1 vial SQ ACHS [facility] PRN Reason: Protocol Last Admin: 03/09/17 06:05 Dose: Not Given Metoprolol Succinate (Toprol Xl -) 50 mg PO DAILY [facility] Last Admin: 03/09/17 09:26 Dose: 50 mg Ciprodex Otic Suspension-Patient's Own Medication (Non -Formulary) 5 each AD BID [facility] Last Admin: 03/09/17 09:28 Dose: 5 each Pramipexole Dihydrochloride (Mirapex -) 0.25 mg PO DAILY [facility] Last Admin: 03/09/17 09:26 Dose: 0.25 mg - Objective Vital Signs: Vital Signs Temperature 98.3 F 03/09/17 09:00 Pulse Rate 72 03/09/17 09:00 Respiratory Rate 18 03/09/17 09:00 Blood Pressure 174/94 03/09/17 09:00 O2 Sat by Pulse Oximetry (%) 96 03/08/17 21:00 Constitutional: Yes: Well Nourished, No Distress Cardiovascular: Yes: S1, S2 Respiratory: Yes: CTA Bilaterally Gastrointestinal: Yes: Soft. No: Tenderness, Rebound Edema: No Labs: CBC, BMP 03/09/17 06:30 03/09/17 06:30 Assessment/Plan Impression 1. Acute on CKD with tendency towards hyperkalemia improved 2. Anemia 3. CHF 4. HTN 5. DM 6. hyperlipidemia 7. Anxiety 8. uterine cancer 9. hx GI bleed Plan Increase the hydralazine to tid Continue with IVF as ordered Rpt labs in am Dr Pagan
--- NOTE | 2017-03-09 11:48 | PN ---
Progress Note (short form) - Note Progress Note: ID consult dictated imp/reccd otitis media with chronic perforation admitted for hyperkalemia on 03/06 seen in the office on 03/05 for routine exam has a chronic peroration in her right ear drum for many years intermittent drainage complained of pain and drainage and was started on amox and cipro ear drops she usually follows up with dr obando she was swelling of the ear canal on the right, visualized TM +LR no fevers now with continued ear drainage and pain started on ceftriaxone and cipro ear drops suspect could resume po amox and cipro ear drops when ready for discharge with ENT f/u as outpt she is improved today please call back if needed Problem List - Problems (1) Otitis media Code(s): H66.90 - OTITIS MEDIA, UNSPECIFIED, UNSPECIFIED EAR
[2017-03-09] MEDS ORDERED: INSULIN (NOVOLOG) ASPART 100 UNITS/ML 10ML VIAL ONE (12:05)
--- NOTE | 2017-03-09 16:23 | PN ---
Progress Note, Physician Chief Complaint: ANXIOUS TO GO HOME IN [facility] FEELS BETTER HAS FAMILY AT BEDSIDE JOKING - Current Medication List Current Medications: Active Medications Acetaminophen (Tylenol -) 650 mg PO Q4H PRN PRN Reason: FEVER OR PAIN Last Admin: 03/09/17 05:57 Dose: 650 mg Albuterol Sulfate (Ventolin 0.083% Nebulizer Soln -) 1 amp NEB Q4H PRN PRN Reason: SHORT OF BREATH/WHEEZING Alprazolam (Xanax -) 0.5 mg PO HS PRN PRN Reason: ANXIETY Aspirin (Asa -) 81 mg PO DAILY [facility] Last Admin: 03/09/17 09:26 Dose: 81 mg Atorvastatin Calcium (Lipitor -) 20 mg PO HS [facility] Last Admin: 03/08/17 21:58 Dose: 20 mg Ceftriaxone Sodium (Rocephin 1gm Ivpb (Pre-Docked)) 1 gm IVPB DAILY [facility] Last Admin: 03/09/17 09:26 Dose: 1 gm Folic Acid (Folic Acid -) 1 mg PO DAILY [facility] Last Admin: 03/09/17 09:26 Dose: 1 mg Heparin Sodium (Porcine) (Heparin -) 5,000 unit SQ BID [facility] Last Admin: 03/09/17 09:26 Dose: 5,000 unit Hydralazine HCl (Apresoline -) 50 mg PO TID [facility] Last Admin: 03/09/17 13:07 Dose: 50 mg Sodium Chloride (1/2 Normal Saline) 1,000 mls @ 42 mls/hr IV ASDIR [facility] Last Admin: 03/09/17 09:27 Dose: Not Given Insulin Aspart (Novolog Vial Sliding Scale -) 1 vial SQ ACHS [facility] PRN Reason: Protocol Last Admin: 03/09/17 12:09 Dose: 4 units Metoprolol Succinate (Toprol Xl -) 50 mg PO DAILY [facility] Last Admin: 03/09/17 09:26 Dose: 50 mg Ciprodex Otic Suspension-Patient's Own Medication (Non -Formulary) 5 each AD BID [facility] Last Admin: 03/09/17 09:28 Dose: 5 each Pramipexole Dihydrochloride (Mirapex -) 0.25 mg PO DAILY [facility] Last Admin: 03/09/17 09:26 Dose: 0.25 mg - Objective Vital Signs: Vital Signs Temperature 98.6 F 03/09/17 15:37 Pulse Rate 71 03/09/17 15:37 Respiratory Rate 20 03/09/17 15:37 Blood Pressure 179/72 03/09/17 15:37 O2 Sat by Pulse Oximetry (%) 97 03/09/17 09:00 Constitutional: Yes: Calm HENT: Yes: Other (R EAR PACKING) Neck: Yes: WNL Cardiovascular: Yes: WNL Respiratory: Yes: WNL Gastrointestinal: Yes: WNL Edema: No Labs: CBC, BMP 03/09/17 06:30 03/09/17 06:30 Problem List - Problems (1) Acute hyperkalemia Code(s): E87.5 - HYPERKALEMIA (2) CKD (chronic kidney disease) Code(s): N18.9 - CHRONIC KIDNEY DISEASE, UNSPECIFIED Qualifiers: Chronic kidney disease stage: stage 4 (severe) Qualified Code(s): N18.4 - Chronic kidney disease, stage 4 (severe) (3) Otitis media Code(s): H66.90 - OTITIS MEDIA, UNSPECIFIED, UNSPECIFIED EAR (4) Anemia Code(s): D64.9 - ANEMIA, UNSPECIFIED Qualifiers: 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 Qualified Code(s): D50.0 - Iron deficiency anemia secondary to blood loss ( chronic) (5) CAD (coronary artery disease) Code(s): I25.10 - ATHSCL HEART DISEASE OF [place] CORONARY ARTERY W/O ANG PCTRS Qualifiers: Coronary Disease-Associated Artery/Lesion type: [place] coronary artery Associated angina: with other forms of angina pectoris (6) CHF (congestive heart failure) Code(s): I50.9 - HEART FAILURE, UNSPECIFIED Qualifiers: Congestive heart failure type: unspecified congestive heart failure type Congestive heart failure chronicity: acute on chronic Qualified Code(s ): I50.9 - Heart failure, unspecified (7) COPD (chronic obstructive pulmonary disease) Code(s): J44.9 - CHRONIC OBSTRUCTIVE PULMONARY DISEASE, UNSPECIFIED (8) Diabetes mellitus Code(s): E11.9 - TYPE 2 DIABETES MELLITUS WITHOUT COMPLICATIONS Assessment/Plan (1) Acute hyperkalemia Assessment/Plan: resolved cr improved dc anneliese inhibitor renal consult appreciated Code(s): E87.5 - HYPERKALEMIA (2) CKD (chronic kidney disease) Assessment/Plan: DC DIURETIC AND MONITOR WILL NEED DIURETIC GROUP HOME Code(s): N18.9 - CHRONIC KIDNEY DISEASE, UNSPECIFIED Qualifiers: Chronic kidney disease stage: stage 4 (severe) Qualified Code(s): N18.4 - Chronic kidney disease, stage 4 (severe) (3) Anemia Assessment/Plan: STABLE MONITOR Code(s): D64.9 - ANEMIA, UNSPECIFIED Qualifiers: 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
[2017-03-09] MEDS: ONDANSETRON 4 MG/2 ML VIAL IVPUSH PRN (16:53)
[2017-03-09] MEDS: ATORVASTATIN CA 20 MG TABLET (FP) PO SCH (22:32)
[2017-03-10] MEDS: hydrALAZINE HCL 50 MG TABLET (FP) PO SCH ×3 (06:53→21:16)
[2017-03-10] MEDS: INSULIN SLIDING SCALE (NOVOLOG) 1 VIAL SQ SCH ×4 (07:58→21:23)
[2017-03-10] MEDS: SODIUM CHLORIDE 0.45% 1,000 ML IV SCH (07:58)
--- NOTE | 2017-03-10 08:13 | PN ---
Progress Note, Physician History of Present Illness: C/O NAUSEA NO CP - Current Medication List Current Medications: Active Medications Acetaminophen (Tylenol -) 650 mg PO Q4H PRN PRN Reason: FEVER OR PAIN Last Admin: 03/09/17 05:57 Dose: 650 mg Albuterol Sulfate (Ventolin 0.083% Nebulizer Soln -) 1 amp NEB Q4H PRN PRN Reason: SHORT OF BREATH/WHEEZING Aspirin (Asa -) 81 mg PO DAILY [facility] Last Admin: 03/09/17 09:26 Dose: 81 mg Atorvastatin Calcium (Lipitor -) 20 mg PO HS [facility] Last Admin: 03/09/17 22:32 Dose: 20 mg Ceftriaxone Sodium (Rocephin 1gm Ivpb (Pre-Docked)) 1 gm IVPB DAILY [facility] Last Admin: 03/09/17 09:26 Dose: 1 gm Folic Acid (Folic Acid -) 1 mg PO DAILY [facility] Last Admin: 03/09/17 09:26 Dose: 1 mg Heparin Sodium (Porcine) (Heparin -) 5,000 unit SQ BID [facility] Last Admin: 03/09/17 22:32 Dose: 5,000 unit Hydralazine HCl (Apresoline -) 50 mg PO TID [facility] Last Admin: 03/10/17 06:53 Dose: 50 mg Sodium Chloride (1/2 Normal Saline) 1,000 mls @ 42 mls/hr IV ASDIR [facility] Last Admin: 03/10/17 07:58 Dose: Not Given Insulin Aspart (Novolog Vial Sliding Scale -) 1 vial SQ ACHS [facility] PRN Reason: Protocol Last Admin: 03/10/17 07:58 Dose: Not Given Metoprolol Succinate (Toprol Xl -) 50 mg PO DAILY [facility] Last Admin: 03/09/17 09:26 Dose: 50 mg Ciprodex Otic Suspension-Patient's Own Medication (Non -Formulary) 5 each AD BID [facility] Last Admin: 03/09/17 22:32 Dose: 5 each Ondansetron HCl (Zofran Injection) 4 mg IVPUSH Q6H PRN PRN Reason: NAUSEA AND/OR VOMITING Last Admin: 03/09/17 16:53 Dose: 4 mg Pramipexole Dihydrochloride (Mirapex -) 0.25 mg PO DAILY [facility] Last Admin: 03/09/17 09:26 Dose: 0.25 mg - Objective Vital Signs: Vital Signs Temperature 97.9 F 03/10/17 06:00 Pulse Rate 70 03/10/17 06:00 Respiratory Rate 20 03/10/17 06:00 Blood Pressure 159/74 03/10/17 06:00 O2 Sat by Pulse Oximetry (%) 97 03/09/17 21:00 Cardiovascular: Yes: Regular Rate and Rhythm Respiratory: Yes: Regular, CTA Bilaterally Gastrointestinal: Yes: Normal Bowel Sounds, Soft. 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 Qualified Code(s): D50.0 - Iron deficiency anemia secondary to blood loss ( chronic) (4) Benign hypertension Assessment/Plan: OBSERVE ON CURRENT MEDS OFF EVELINA AND OFF LASIX Code(s): I10 - ESSENTIAL (PRIMARY) HYPERTENSION (5) CHF (congestive heart failure) Assessment/Plan: STABLE OF DIURETICS CLOSE MONITORING DAILY [facility] Code(s): I50.9 - HEART FAILURE, UNSPECIFIED Qualifiers: Congestive heart failure type: unspecified congestive heart failure type Congestive heart failure chronicity: acute on chronic Qualified Code(s ): I50.9 - Heart failure, unspecified (6) Nausea Assessment/Plan: ADD PPI Code(s): R11.0 - NAUSEA (7) Otitis media Assessment/Plan: ON ROCEPHIN Code(s): H66.90 - OTITIS MEDIA, UNSPECIFIED, UNSPECIFIED EAR
[2017-03-10 08:25] LABS: BASOPHIL 0.6 % (0-2.0); EOSINOPHIL 3.3 % (0-4.5); MCHC 31.7 g/dl (32.0-36.0); MEAN CELL VOLUME 88.5 fl (80-96); MEAN PLT VOLUME 10.8 fl (7.5-11.1); NEUTROPHILS 66.4 % (42.8-82.8); PLATELET COUNT 152 K/MM3 (134-434); RDW 15.8 % (11.6-15.6); WHITE BLOOD COUNT 6.1 K/mm3 (4.0-10.0)
[2017-03-10] MEDS ORDERED: PANTOPRAZOLE SODIUM 100 ML IVPB ONE (08:45)
[2017-03-10 09:01] LABS: CALCIUM 9.5 mg/dL (8.5-10.1); COCKROFT - GAULT 37.468; CREATININE 2.1 mg/dL (0.55-1.02)
[2017-03-10] MEDS: HEPARIN NA (PORCINE) 5,000 UNITS/ML 1ML VIAL SQ SCH ×2 (09:18→21:16)
[2017-03-10] MEDS: FOLIC ACID 1 MG TABLET (FP) PO SCH (09:19)
[2017-03-10] MEDS: METOPROLOL SUCCINATE 50 MG TAB.SR.24H (FP) PO SCH (09:19)
[2017-03-10] MEDS: ASPIRIN 81 MG CHEWABLE TABLETS PO SCH (09:19)
[2017-03-10] MEDS: cefTRIAXone 1 GM/50 ML BAG (PRE-DOCKED) IVPB SCH (09:20)
[2017-03-10] MEDS: PRAMIPEXOLE DIHYDROCHLORIDE 0.25 MG TABLET PO SCH (09:21)
[2017-03-10] MEDS: CIPRODEX AD SCH ×2 (09:25→21:17)
--- NOTE | 2017-03-10 09:49 | PN ---
Progress Note, Physician History of Present Illness: Renal F/U Pt with less of an earache on IV abx but having some nausea Today's K up to 5.3 - Current Medication List Current Medications: Active Medications Acetaminophen (Tylenol -) 650 mg PO Q4H PRN PRN Reason: FEVER OR PAIN Last Admin: 03/09/17 05:57 Dose: 650 mg Albuterol Sulfate (Ventolin 0.083% Nebulizer Soln -) 1 amp NEB Q4H PRN PRN Reason: SHORT OF BREATH/WHEEZING Aspirin (Asa -) 81 mg PO DAILY [facility] Last Admin: 03/10/17 09:19 Dose: 81 mg Atorvastatin Calcium (Lipitor -) 20 mg PO HS [facility] Last Admin: 03/09/17 22:32 Dose: 20 mg Ceftriaxone Sodium (Rocephin 1gm Ivpb (Pre-Docked)) 1 gm IVPB DAILY [facility] Last Admin: 03/10/17 09:20 Dose: 1 gm Folic Acid (Folic Acid -) 1 mg PO DAILY [facility] Last Admin: 03/10/17 09:19 Dose: 1 mg Heparin Sodium (Porcine) (Heparin -) 5,000 unit SQ BID [facility] Last Admin: 03/10/17 09:18 Dose: 5,000 unit Hydralazine HCl (Apresoline -) 50 mg PO TID [facility] Last Admin: 03/10/17 06:53 Dose: 50 mg Insulin Aspart (Novolog Vial Sliding Scale -) 1 vial SQ ACHS [facility] PRN Reason: Protocol Last Admin: 03/10/17 07:58 Dose: Not Given Metoprolol Succinate (Toprol Xl -) 50 mg PO DAILY [facility] Last Admin: 03/10/17 09:19 Dose: 50 mg Ciprodex Otic Suspension-Patient's Own Medication (Non -Formulary) 5 each AD BID [facility] Last Admin: 03/10/17 09:25 Dose: 5 each Ondansetron HCl (Zofran Injection) 4 mg IVPUSH Q6H PRN PRN Reason: NAUSEA AND/OR VOMITING Last Admin: 03/09/17 16:53 Dose: 4 mg Pantoprazole Sodium (Protonix -) 40 mg PO DAILY [facility] Pramipexole Dihydrochloride (Mirapex -) 0.25 mg PO DAILY [facility] Last Admin: 03/10/17 09:21 Dose: 0.25 mg - Objective Vital Signs: Vital Signs Temperature 97.6 F 03/10/17 08:36 Pulse Rate 81 03/10/17 08:36 Respiratory Rate 18 03/10/17 08:36 Blood Pressure 153/78 03/10/17 08:36 O2 Sat by Pulse Oximetry (%) 97 03/09/17 21:00 Constitutional: Yes: No Distress Cardiovascular: Yes: S1, S2 Respiratory: Yes: CTA Bilaterally Gastrointestinal: Yes: Soft. No: Tenderness, Rebound Edema: No Labs: CBC, BMP 03/10/17 06:15 03/10/17 06:15 Assessment/Plan Impression 1. Acute on CKD with tendency towards hyperkalemia 2. Anemia 3. CHF 4. HTN 5. DM 6. hyperlipidemia 7. Anxiety 8. uterine cancer 9. hx GI bleed Plan Kayexalate 15 grams po X1 May need to be on kayexalate q 48 hours as she was receiving [facility]INESEOLOGIST Will not give a diuretic for the BP and K till azotemia stabilized Continue with IVF as ordered Rpt labs in am Dr Pagan
[2017-03-10] MEDS ORDERED: SODIUM POLYSTYRENE SULFONATE 15 GM/60 ML BOTTLE PO ONE (10:15)
--- NOTE | 2017-03-10 11:16 | PN ---
Progress Note, Physician Chief Complaint: LYSSA, hi K History of Present Illness: no sob, orthopnea; no cp, palpit no leg swelling - Current Medication List Current Medications: Active Medications Acetaminophen (Tylenol -) 650 mg PO Q4H PRN PRN Reason: FEVER OR PAIN Last Admin: 03/09/17 05:57 Dose: 650 mg Albuterol Sulfate (Ventolin 0.083% Nebulizer Soln -) 1 amp NEB Q4H PRN PRN Reason: SHORT OF BREATH/WHEEZING Aspirin (Asa -) 81 mg PO DAILY [facility] Last Admin: 03/10/17 09:19 Dose: 81 mg Atorvastatin Calcium (Lipitor -) 20 mg PO HS [facility] Last Admin: 03/09/17 22:32 Dose: 20 mg Ceftriaxone Sodium (Rocephin 1gm Ivpb (Pre-Docked)) 1 gm IVPB DAILY [facility] Last Admin: 03/10/17 09:20 Dose: 1 gm Folic Acid (Folic Acid -) 1 mg PO DAILY [facility] Last Admin: 03/10/17 09:19 Dose: 1 mg Heparin Sodium (Porcine) (Heparin -) 5,000 unit SQ BID [facility] Last Admin: 03/10/17 09:18 Dose: 5,000 unit Hydralazine HCl (Apresoline -) 50 mg PO TID [facility] Last Admin: 03/10/17 06:53 Dose: 50 mg Insulin Aspart (Novolog Vial Sliding Scale -) 1 vial SQ ACHS [facility] PRN Reason: Protocol Last Admin: 03/10/17 07:58 Dose: Not Given Metoprolol Succinate (Toprol Xl -) 50 mg PO DAILY [facility] Last Admin: 03/10/17 09:19 Dose: 50 mg Ciprodex Otic Suspension-Patient's Own Medication (Non -Formulary) 5 each AD BID [facility] Last Admin: 03/10/17 09:25 Dose: 5 each Ondansetron HCl (Zofran Injection) 4 mg IVPUSH Q6H PRN PRN Reason: NAUSEA AND/OR VOMITING Last Admin: 03/09/17 16:53 Dose: 4 mg Pantoprazole Sodium (Protonix -) 40 mg PO DAILY [facility] Pramipexole Dihydrochloride (Mirapex -) 0.25 mg PO DAILY [facility] Last Admin: 03/10/17 09:21 Dose: 0.25 mg - Objective Vital Signs: Vital Signs Temperature 97.6 F 03/10/17 08:36 Pulse Rate 81 03/10/17 08:36 Respiratory Rate 18 03/10/17 08:36 Blood Pressure 153/78 03/10/17 08:36 O2 Sat by Pulse Oximetry (%) 97 03/09/17 21:00 Constitutional: Yes: Well Nourished, No Distress, Calm Cardiovascular: Yes: Regular Rate and Rhythm, S1, S2. No: JVD, Gallop, Murmur Respiratory: Yes: Regular, CTA Bilaterally. No: Accessory Muscle Use, Rales, Wheezes Extremities: No: Cold Edema: No Neurological: Yes: Alert, Oriented Psychiatric: No: Agitated Labs: CBC, BMP 03/10/17 06:15 03/10/17 06:15 Assessment/Plan Echo 06/2016: mod LVE, mod decr EF (no EF reported); mild RVE and mild HK; mild L /ANISH; valves WNL; no RVSP LHC 06/29: nl EDP; EF 40% (global); 50-60% OM1 (normal FFR); mild dz others cxr: clear lungs ecg 03/06/17: sr, nl intervals, lvh with repol changes a/p: 61 yo smoker with h/o mild systolic dysfunction, HTN, HL, pHTN, mod PARVEZ on cpap, CKD (bline CR 1.3-1.4), PAD, DM h/o GIB, sent to ER due to hyperkalemia. hyperkalemia: -pt has known hx of hyperkalemia managed with standing kayexalate by renal ( digiorno) -has been at times noncompliant with kayex dosing in past--AGAIN ADMITS TO SELF- D/C'D KAYEXALATE "BC I WAS DOING WELL" -off lisinopril permanently -K improving, mgmt per renal lyssa on ckd: -baseline cr 1.8-2.1, now in 3s here -wt way down from prior dry wt -likely overdiuresed - creat down to 2.1 today -cont ivf per renal--? can d/c IVF tomorrow chronic systolic chf: - Known biventricular (nonischemic) cardiomyopathy/pHTN. - wt was 199, down from 214 when diuresed recently here for chf - current wt 192, likely dry, +LYSSA--appears euvolemic - home diuretic regimen lasix 80 mg po bid--on hold for now due to lyssa/ hypovolemia - cautious ivf per renal--no signs chf - cont bb - recent EF worsened on echo, attempt to re-inititate low dose EVELINA with standing kayexalate failed (acute hyperK again due to noncompliance with kayexalate agein)--not a candidate for RAAS blockers - will need some maintenance home lasix given past chf behavior - ? LYSSA now resolved--will likely resume po lasix in 24-48 hrs if creat remains 2.1 or lower Mod PARVEZ - con't cpap HTN - controlled - con't hydralazine, metoprolol HL - con't statin anemia, iron-deficient - chronic, follows closely with dr white/candice/shasta as outpt - counts stable here
[2017-03-10] MEDS: ONDANSETRON 4 MG/2 ML VIAL IVPUSH PRN (11:49)
[2017-03-10] MEDS: ATORVASTATIN CA 20 MG TABLET (FP) PO SCH (21:16)
[2017-03-11] MEDS: hydrALAZINE HCL 50 MG TABLET (FP) PO SCH ×3 (06:25→23:36)
[2017-03-11] MEDS: INSULIN SLIDING SCALE (NOVOLOG) 1 VIAL SQ SCH ×4 (06:26→23:41)
[2017-03-11 07:51] LABS: BASOPHIL 0.6 % (0-2.0); EOSINOPHIL 3.1 % (0-4.5); MCH 27.4 pg (25.7-33.7); MCHC 31.1 g/dl (32.0-36.0); MEAN CELL VOLUME 88.1 fl (80-96); NEUTROPHILS 68.6 % (42.8-82.8); PLATELET COUNT 158 K/MM3 (134-434); RDW 16.1 % (11.6-15.6); WHITE BLOOD COUNT 7.1 K/mm3 (4.0-10.0)
[2017-03-11 08:19] LABS: CALCIUM 9.4 mg/dL (8.5-10.1)
[2017-03-11 08:21] LABS: COCKROFT - GAULT 37.6465; CREATININE 2.1 mg/dL (0.55-1.02)
--- NOTE | 2017-03-11 08:32 | PN ---
Progress Note, Physician History of Present Illness: C/O NAUSEA NO CP had nausea and vomiting yesterday--better today - Current Medication List Current Medications: Active Medications Acetaminophen (Tylenol -) 650 mg PO Q4H PRN PRN Reason: FEVER OR PAIN Last Admin: 03/09/17 05:57 Dose: 650 mg Albuterol Sulfate (Ventolin 0.083% Nebulizer Soln -) 1 amp NEB Q4H PRN PRN Reason: SHORT OF BREATH/WHEEZING Aspirin (Asa -) 81 mg PO DAILY [facility] Last Admin: 03/10/17 09:19 Dose: 81 mg Atorvastatin Calcium (Lipitor -) 20 mg PO HS [facility] Last Admin: 03/10/17 21:16 Dose: 20 mg Ceftriaxone Sodium (Rocephin 1gm Ivpb (Pre-Docked)) 1 gm IVPB DAILY [facility] Last Admin: 03/10/17 09:20 Dose: 1 gm Folic Acid (Folic Acid -) 1 mg PO DAILY [facility] Last Admin: 03/10/17 09:19 Dose: 1 mg Heparin Sodium (Porcine) (Heparin -) 5,000 unit SQ BID [facility] Last Admin: 03/10/17 21:16 Dose: 5,000 unit Hydralazine HCl (Apresoline -) 50 mg PO TID [facility] Last Admin: 03/11/17 06:25 Dose: 50 mg Insulin Aspart (Novolog Vial Sliding Scale -) 1 vial SQ ACHS [facility] PRN Reason: Protocol Last Admin: 03/11/17 06:26 Dose: Not Given Metoprolol Succinate (Toprol Xl -) 50 mg PO DAILY [facility] Last Admin: 03/10/17 09:19 Dose: 50 mg Ciprodex Otic Suspension-Patient's Own Medication (Non -Formulary) 5 each AD BID [facility] Last Admin: 03/10/17 21:17 Dose: 5 each Ondansetron HCl (Zofran Injection) 4 mg IVPUSH Q6H PRN PRN Reason: NAUSEA AND/OR VOMITING Last Admin: 03/10/17 11:49 Dose: 4 mg Pantoprazole Sodium (Protonix -) 40 mg PO DAILY [facility] Pramipexole Dihydrochloride (Mirapex -) 0.25 mg PO DAILY [facility] Last Admin: 03/10/17 09:21 Dose: 0.25 mg Sodium Polystyrene Sulfonate (Kayexalate -) 15 gm PO ONCE ONE Stop: 03/11/17 08:30 - Objective Vital Signs: Vital Signs Temperature 98.5 F 03/11/17 06:00 Pulse Rate 76 03/11/17 06:00 Respiratory Rate 18 03/11/17 06:00 Blood Pressure 134/62 03/11/17 06:00 O2 Sat by Pulse Oximetry (%) 97 03/10/17 21:00 Cardiovascular: Yes: Regular Rate and Rhythm Respiratory: Yes: Regular, CTA Bilaterally Gastrointestinal: Yes: Normal Bowel Sounds, Soft. No: Tenderness Labs: CBC, BMP 03/11/17 06:15 Problem List - Problems (1) Acute hyperkalemia Assessment/Plan: IMPROVED--5.3--continue with kayexalate OFF EVELINA MONITOR Code(s): E87.5 - HYPERKALEMIA (2) CKD (chronic kidney disease) Assessment/Plan: DC DIURETIC AND MONITOR OFF IVF WILL NEED DIURETIC SECURITY STRATEGIST--WITH CLOSE MONITORING Code(s): N18.9 - CHRONIC KIDNEY DISEASE, UNSPECIFIED Qualifiers: Chronic kidney disease stage: stage 4 (severe) Qualified Code(s): N18.4 - Chronic kidney disease, stage 4 (severe) (3) Anemia Assessment/Plan: STABLE MONITOR Code(s): D64.9 - ANEMIA, UNSPECIFIED Qualifiers: 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 Qualified Code(s): D50.0 - Iron deficiency anemia secondary to blood loss ( chronic) (4) Benign hypertension Assessment/Plan: OBSERVE ON CURRENT MEDS OFF EVELINA AND OFF LASIX Code(s): I10 - ESSENTIAL (PRIMARY) HYPERTENSION (5) CHF (congestive heart failure) Assessment/Plan: STABLE OF DIURETICS CLOSE MONITORING DAILY WTS Code(s): I50.9 - HEART FAILURE, UNSPECIFIED Qualifiers: Congestive heart failure type: unspecified congestive heart failure type Congestive heart failure chronicity: acute on chronic Qualified Code(s ): I50.9 - Heart failure, unspecified (6) Nausea Assessment/Plan: ADD PPI Code(s): R11.0 - NAUSEA (7) Otitis media Assessment/Plan: ON ROCEPHIN Code(s): H66.90 - OTITIS MEDIA, UNSPECIFIED, UNSPECIFIED EAR (8) Gallbladder disorder Assessment/Plan: gi and surgical consult Code(s): K82.9 - DISEASE OF GALLBLADDER, UNSPECIFIED
[2017-03-11] MEDS ORDERED: SODIUM POLYSTYRENE SULFONATE 15 GM/60 ML BOTTLE PO ONE (09:15)
[2017-03-11 10:02] LABS: ALBUMIN 3.3 g/dl (3.4-5.0); BILIRUBIN,DIRECT 0.1 mg/dL (0.0-0.2); BILIRUBIN,TOTAL 0.4 mg/dL (0.2-1.0); TOT PROT 7.3 g/dl (6.4-8.2)
[2017-03-11] MEDS: cefTRIAXone 1 GM/50 ML BAG (PRE-DOCKED) IVPB SCH (10:41)
[2017-03-11] MEDS: HEPARIN NA (PORCINE) 5,000 UNITS/ML 1ML VIAL SQ SCH ×2 (10:41→23:38)
[2017-03-11] MEDS: PANTOPRAZOLE 40 MG TABLET (FP) PO SCH (10:42)
[2017-03-11] MEDS: ASPIRIN 81 MG CHEWABLE TABLETS PO SCH (10:42)
[2017-03-11] MEDS: METOPROLOL SUCCINATE 50 MG TAB.SR.24H (FP) PO SCH (10:42)
[2017-03-11] MEDS: FOLIC ACID 1 MG TABLET (FP) PO SCH (10:42)
[2017-03-11] MEDS: PRAMIPEXOLE DIHYDROCHLORIDE 0.25 MG TABLET PO SCH (10:43)
[2017-03-11] MEDS: CIPRODEX AD SCH ×2 (10:43→23:38)
--- NOTE | 2017-03-11 12:42 | PN ---
Progress Note (short form) - Note Progress Note: Chief Complaint: LYSSA, hi K History of Present Illness: no sob, orthopnea; no cp, palpit no leg swelling. + nausea, poor po intake. IVF stopped this am. Current Medications Acetaminophen (Tylenol -) 650 mg PO Q4H PRN PRN Reason: FEVER OR PAIN Last Admin: 03/09/17 05:57 Dose: 650 mg Albuterol Sulfate (Ventolin 0.083% Nebulizer Soln -) 1 amp NEB Q4H PRN PRN Reason: SHORT OF BREATH/WHEEZING Aspirin (Asa -) 81 mg PO DAILY [facility] Last Admin: 03/11/17 10:42 Dose: 81 mg Atorvastatin Calcium (Lipitor -) 20 mg PO HS [facility] Last Admin: 03/10/17 21:16 Dose: 20 mg Ceftriaxone Sodium (Rocephin 1gm Ivpb (Pre-Docked)) 1 gm IVPB DAILY [facility] Last Admin: 03/11/17 10:41 Dose: 1 gm Folic Acid (Folic Acid -) 1 mg PO DAILY [facility] Last Admin: 03/11/17 10:42 Dose: 1 mg Heparin Sodium (Porcine) (Heparin -) 5,000 unit SQ BID [facility] Last Admin: 03/11/17 10:41 Dose: 5,000 unit Hydralazine HCl (Apresoline -) 50 mg PO TID [facility] Last Admin: 03/11/17 06:25 Dose: 50 mg Insulin Aspart (Novolog Vial Sliding Scale -) 1 vial SQ ACHS [facility] PRN Reason: Protocol Last Admin: 03/11/17 12:11 Dose: Not Given Metoprolol Succinate (Toprol Xl -) 50 mg PO DAILY [facility] Last Admin: 03/11/17 10:42 Dose: 50 mg Ciprodex Otic Suspension-Patient's Own Medication (Non -Formulary) 5 each AD BID [facility] Last Admin: 03/11/17 10:43 Dose: 5 each Ondansetron HCl (Zofran Injection) 4 mg IVPUSH Q6H PRN PRN Reason: NAUSEA AND/OR VOMITING Last Admin: 03/10/17 11:49 Dose: 4 mg Pantoprazole Sodium (Protonix -) 40 mg PO DAILY [facility] Last Admin: 03/11/17 10:42 Dose: 40 mg Pramipexole Dihydrochloride (Mirapex -) 0.25 mg PO DAILY [facility] Last Admin: 03/11/17 10:43 Dose: 0.25 mg Vital Signs - 24 hr 03/10/17 03/10/17 03/11/17 17:35 21:00 06:00 Temperature 98.0 F 97.9 F 98.5 F Pulse Rate 68 66 76 Respiratory 20 18 18 Rate Blood Pressure 144/66 163/78 134/62 O2 Sat by Pulse 97 Oximetry (%) Intake & Output 03/09/17 03/10/17 03/11/17 03/12/17 07:59 07:59 07:59 07:59 Intake Total 400 2350 700 Output Total 200 Balance 400 2350 500 Weight 188 lb 5 oz 186 lb 186 lb 14.4 oz Constitutional: Yes: Well Nourished, No Distress, Calm Cardiovascular: Yes: Regular Rate and Rhythm, S1, S2. No: JVD, Gallop, Murmur Respiratory: Yes: Regular, CTA Bilaterally. No: Accessory Muscle Use, Rales, Wheezes Extremities: No: Cold Edema: No Neurological: Yes: Alert, Oriented Psychiatric: No: Agitated Labs: CBC, BMP 03/11/17 06:15 03/11/17 06:15 Assessment/Plan Echo 06/2016: mod LVE, mod decr EF (no EF reported); mild RVE and mild HK; mild L /ANISH; valves WNL; no RVSP LHC 06/29: nl EDP; EF 40% (global); 50-60% OM1 (normal FFR); mild dz others cxr: clear lungs ecg 03/06/17: sr, nl intervals, lvh with repol changes a/p: 61 yo smoker with h/o mild systolic dysfunction, HTN, HL, pHTN, mod PARVEZ on cpap, CKD (bline CR 1.3-1.4), PAD, DM h/o GIB, sent to ER due to hyperkalemia. hyperkalemia: -pt has known hx of hyperkalemia managed with standing kayexalate by renal ( digiorno) -has been at times noncompliant with kayex dosing in past--AGAIN ADMITS TO SELF- D/C'D KAYEXALATE "BC I WAS DOING WELL" -off lisinopril permanently -K improving, mgmt per renal lyssa on ckd: -baseline cr 1.8-2.1, up to 3s here -wt way down from prior dry wt -likely overdiuresed - creat down to 2.1 with IVF, now off. chronic systolic chf: - Known biventricular (nonischemic) cardiomyopathy/pHTN. - wt was 199, down from 214 when diuresed recently here for chf - initial wt 192, likely dry, +LYSSA--appears euvolemic - home diuretic regimen lasix 80 mg po bid--on hold for now due to lyssa/ hypovolemia - cautious ivf per renal--no signs chf - cont bb - recent EF worsened on echo, attempt to re-inititate low dose EVELINA with standing kayexalate failed (acute hyperK again due to noncompliance with kayexalate agein)--not a candidate for RAAS blockers - will need some maintenance home lasix given past chf behavior - ? LYSSA now resolved--will likely resume po lasix in 24-48 hrs if creat remains 2.1 or lower at discretion of renal. Mod PARVEZ - con't cpap HTN - controlled - con't hydralazine, metoprolol HL - con't statin anemia, iron-deficient - chronic, follows closely with dr white/candice/shasta as outpt - counts stable here
--- NOTE | 2017-03-11 14:10 | PN ---
Progress Note (short form) - Note Progress Note: surgery pt seen and examined. full consult dictated. 61f with multiple medical problems, admitted for hyperkalemia, noted to have 3 days of nausea. w/u shows contracted gb with stones on u/s. Pt denies abd pain. occasional diarrhea with greasy meals. on exam abd is soft, nt, nd. well healed pfannesteil incision. Plan- gallstones, nausea. suspect unrelated. agree with GI eval. cholecystectomy can be considered however doubt gb is source of symptoms.
--- NOTE | 2017-03-11 15:54 | CONS ---
DATE OF CONSULTATION: 03/11/2017 REASON FOR CONSULTATION: Gallstones, nausea. This is an inpatient consultation as requested by Anyi Mcgrath M.D. HISTORY OF PRESENT ILLNESS: This is a 61-year-old female with multiple medical problems including chronic kidney disease, anemia, congestive heart failure, COPD, diabetes, hypertension, arrhythmia, uterine cancer, who was admitted to [facility] for hyperkalemia secondary to noncompliance on home medication regimen. She also reports 3 days of nausea and states in general when she eats fatty food, she does get occasional diarrhea. Because of her nausea and some vomiting that occurred in the hospital, an ultrasound was done of her gallbladder, which shows a contracted gallbladder with stones. Because of this, a surgical consultation was requested. Patient denies blood in her stool, denies recent weight loss. PAST MEDICAL HISTORY: As in HPI. PAST SURGICAL HISTORY: Includes hysterectomy for uterine cancer done through a Pfannenstiel incision. FAMILY HISTORY: Negative for malignancy in the immediate family. SOCIAL HISTORY: Unremarkable. MEDICATION: Reviewed. They include aspirin, Xanax, Lasix, hydralazine, Lipitor, Mirapex, lisinopril, and metoprolol. REVIEW OF SYSTEMS: General: Admits to fatigue. Cardiac: Denies chest pain. Respiratory: Denies shortness of breath, wheeze. Gastrointestinal: As in HPI. Genitourinary: Denies dysuria. Musculoskeletal: Admits to arthritic pain. Psychiatric: Denies anxiety, depression, or hearing voices. PHYSICAL EXAMINATION: General: This is an obese 61-year-old female in no distress. Vital signs: She is afebrile. Vital signs are stable. HEENT: Head is normocephalic. Sclerae anicteric. Neck: Supple. Chest: Clear. Abdomen: Soft. Nontender. Nondistended. She has a well healed Pfannenstiel incision. She has no obvious hernias. Extremities: No edema. LABORATORY: On review of her laboratory, her white blood cell count is normal at 7.1. Her chemistries are unremarkable with a mildly elevated elevation of her alkaline phosphatase of 118. That has been persistent throughout her admission. On review of her imaging, her ultrasound is as stated in the HPI. ASSESSMENT: This is a 61-year-old female, obese, with no real history of fatty food intolerance, with 3 days of nausea, admitted for hyperkalemia with multiple medical problems including cardiac and kidney issues. Found to have gallstones and nausea. Clinically, I do not suspect the gallstones are the source of her nausea. I agree with GI workup for better evaluation of the cause of her nausea. This could likely be secondary to medications. Also concerned for the reason for elevation of her alkaline phosphatase. This too should be addressed by the GI service. At this point, cholecystectomy can be considered; however, I suspect it will not relieve her symptoms. If GI feels that this is likely the cause of her symptoms and she considered a candidate for surgery, will be available for a cholecystectomy. DO CURTIS BARBOUR/[id number]
--- NOTE | 2017-03-11 17:14 | PN ---
Progress Note, Physician History of Present Illness: Pt seen and examined at bedside. She is awake and alert. She complains of nausea and vomiting. - Current Medication List Current Medications: Active Medications Acetaminophen (Tylenol -) 650 mg PO Q4H PRN PRN Reason: FEVER OR PAIN Last Admin: 03/09/17 05:57 Dose: 650 mg Albuterol Sulfate (Ventolin 0.083% Nebulizer Soln -) 1 amp NEB Q4H PRN PRN Reason: SHORT OF BREATH/WHEEZING Aspirin (Asa -) 81 mg PO DAILY [facility] Last Admin: 03/11/17 10:42 Dose: 81 mg Atorvastatin Calcium (Lipitor -) 20 mg PO HS [facility] Last Admin: 03/10/17 21:16 Dose: 20 mg Ceftriaxone Sodium (Rocephin 1gm Ivpb (Pre-Docked)) 1 gm IVPB DAILY [facility] Last Admin: 03/11/17 10:41 Dose: 1 gm Folic Acid (Folic Acid -) 1 mg PO DAILY [facility] Last Admin: 03/11/17 10:42 Dose: 1 mg Heparin Sodium (Porcine) (Heparin -) 5,000 unit SQ BID [facility] Last Admin: 03/11/17 10:41 Dose: 5,000 unit Hydralazine HCl (Apresoline -) 50 mg PO TID [facility] Last Admin: 03/11/17 06:25 Dose: 50 mg Insulin Aspart (Novolog Vial Sliding Scale -) 1 vial SQ ACHS [facility] PRN Reason: Protocol Last Admin: 03/11/17 12:11 Dose: Not Given Metoprolol Succinate (Toprol Xl -) 50 mg PO DAILY [facility] Last Admin: 03/11/17 10:42 Dose: 50 mg Ciprodex Otic Suspension-Patient's Own Medication (Non -Formulary) 5 each AD BID [facility] Last Admin: 03/11/17 10:43 Dose: 5 each Ondansetron HCl (Zofran Injection) 4 mg IVPUSH Q6H PRN PRN Reason: NAUSEA AND/OR VOMITING Last Admin: 03/10/17 11:49 Dose: 4 mg Pantoprazole Sodium (Protonix -) 40 mg PO DAILY [facility] Last Admin: 03/11/17 10:42 Dose: 40 mg Pramipexole Dihydrochloride (Mirapex -) 0.25 mg PO DAILY [facility] Last Admin: 03/11/17 10:43 Dose: 0.25 mg - Objective Vital Signs: Vital Signs Temperature 97.7 F 03/11/17 15:18 Pulse Rate 66 03/11/17 15:18 Respiratory Rate 18 03/11/17 15:18 Blood Pressure 166/78 03/11/17 15:18 O2 Sat by Pulse Oximetry (%) 97 03/10/17 21:00 Constitutional: Yes: Calm Eyes: Yes: Conjunctiva Clear HENT: Yes: Atraumatic Cardiovascular: Yes: S1, S2 Respiratory: Yes: CTA Bilaterally Gastrointestinal: Yes: Soft Genitourinary: Yes: WNL Edema: No Neurological: Yes: Oriented Psychiatric: Yes: Oriented Labs: CBC, BMP 03/11/17 06:15 03/11/17 06:15 Problem List - Problems (1) Acute hyperkalemia Code(s): E87.5 - HYPERKALEMIA (2) CKD (chronic kidney disease) Code(s): N18.9 - CHRONIC KIDNEY DISEASE, UNSPECIFIED Qualifiers: Chronic kidney disease stage: stage 4 (severe) Qualified Code(s): N18.4 - Chronic kidney disease, stage 4 (severe) (3) Acute CHF (congestive heart failure) Code(s): I50.9 - HEART FAILURE, UNSPECIFIED (4) Anemia Code(s): D64.9 - ANEMIA, UNSPECIFIED Qualifiers: 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 Qualified Code(s): D50.0 - Iron deficiency anemia secondary to blood loss ( chronic) (5) Asthma Code(s): J45.909 - UNSPECIFIED ASTHMA, UNCOMPLICATED (6) Benign hypertension Code(s): I10 - ESSENTIAL (PRIMARY) HYPERTENSION (7) CAD (coronary artery disease) Code(s): I25.10 - ATHSCL HEART DISEASE OF [place] CORONARY ARTERY W/O ANG PCTRS Qualifiers: Coronary Disease-Associated Artery/Lesion type: [place] coronary artery Associated angina: with other forms of angina pectoris (8) COPD (chronic obstructive pulmonary disease) Code(s): J44.9 - CHRONIC OBSTRUCTIVE PULMONARY DISEASE, UNSPECIFIED (9) HTN (hypertension) Code(s): I10 - ESSENTIAL (PRIMARY) HYPERTENSION Assessment/Plan Current Medications Generic Name Dose Route Start Last Admin Trade Name Freq PRN Reason Stop Dose Admin Acetaminophen 650 mg 03/06/17 20:01 03/09/17 05:57 Tylenol - PO 650 mg Q4H PRN Administration FEVER OR PAIN Albuterol Sulfate 1 amp 03/06/17 20:00 Ventolin 0.083% Nebulizer Soln - NEB Q4H PRN SHORT OF BREATH/WHEEZING Aspirin 81 mg 03/07/17 10:00 03/11/17 10:42 Asa - PO 81 mg DAILY [facility] Administration Atorvastatin Calcium 20 mg 03/06/17 22:00 03/10/17 21:16 Lipitor - PO 20 mg HS [facility] Administration Ceftriaxone Sodium 1 gm 03/08/17 10:00 03/11/17 10:41 Rocephin 1gm Ivpb (Pre-Docked) IVPB 1 gm DAILY [facility] Administration Folic Acid 1 mg 03/07/17 10:00 03/11/17 10:42 Folic Acid - PO 1 mg DAILY [facility] Administration Heparin Sodium (Porcine) 5,000 unit 03/06/17 22:00 03/11/17 10:41 Heparin - SQ 5,000 unit BID [facility] Administration Hydralazine HCl 50 mg 03/09/17 14:00 03/11/17 17:08 Apresoline - PO Not Given TID [facility] Insulin Aspart 1 vial 03/08/17 22:00 03/11/17 17:10 Novolog Vial Sliding Scale - SQ Not Given ACHS [facility] Protocol Metoprolol Succinate 50 mg 03/07/17 10:00 03/11/17 10:42 Toprol Xl - PO 50 mg DAILY [facility] Administration Ciprodex Otic 5 each 03/08/17 12:45 03/11/17 10:43 Suspension-Patient's AD 5 each Own Medication (Non BID [facility] Administration -Formulary) Ondansetron HCl 4 mg 03/09/17 16:23 03/10/17 11:49 Zofran Injection IVPUSH 4 mg Q6H PRN Administration NAUSEA AND/OR VOMITING Pantoprazole Sodium 40 mg 03/11/17 10:00 03/11/17 10:42 Protonix - PO 40 mg DAILY [facility] Administration Pramipexole Dihydrochloride 0.25 mg 03/07/17 10:00 03/11/17 10:43 Mirapex - PO 0.25 mg DAILY [facility] Administration Impression 1. CKD 2. anemia 3. CHF 4. HTN 5. DM 6. hyperlipidemia 7. anxiety 8. uterine cancer 9. hx GI bleed 10. acute hyperkalemia Plan - potassium has improved - would not restart anneliese or arb - cont low potassium diet - avoid kayexylate - will monitor renal function - hold off diuretics today as she is nauseated Dr Moore
--- NOTE | 2017-03-11 18:35 | CON.GI ---
Consult Consult Specialty:: Gastroenterololgy Referred by:: Dr Mcgrath - History of Present Illness History of Present Illness: 61 y/o female with PMH of AD, CHF, cholelithiasis, h/o of colonic polyp was asked to be seen because of abdominal pain, abdominal bloating, persistent nausea, diarrhea after a fatty meal, early satiety. - Past Medical History Cardio/Vascular: Yes: CHF, HTN, Hyperlipdemia, Pulmonary Hypertension Pulmonary: Yes: Asthma, Sleep Apnea (on BIPAP at night) Gastrointestinal: Yes: GI Bleed (see HPI), Other (had EGD and colono 12/31, ) Renal/: Yes: Renal Failure, Renal Inusuff, Other (hyperkalemia) ...LMP: 11/17/07 Endocrine: Yes: Diabetes Mellitus (uncontrolled) - Alcohol/Substance Use Hx Alcohol Use: No - Smoking History Smoking history: Current every day smoker Have you smoked in the past 12 months: Yes Aproximately how many cigarettes per day: 7 - Social History ADL: Independent History of Recent Travel: No Home Medications - Allergies Allergies/Adverse Reactions: Allergies Allergy/AdvReac Type Severity Reaction Status Date / Time No Known Allergies Allergy Verified 03/06/17 14:17 - Home Medications Home Medications: Ambulatory Orders Aspirin 81 mg PO DAILY 01/18/14 Albuterol 0.083% Nebulizer Laura [Ventolin 0.083% Nebulizer Soln -] 1 neb NEB Q4H PRN #120 vial 11/19/14 Alprazolam [Xanax] 0.5 mg PO HS PRN #15 tablet 11/19/14 Hydralazine HCl [Apresoline -] 50 mg PO BID #60 tablet 11/19/14 Folic Acid 1 mg PO DAILY 01/09/16 Furosemide [Lasix -] 80 mg PO BID@0600,1400 #60 tablet 01/11/16 Atorvastatin Ca [Lipitor] 20 mg PO HS 11/25/16 Pramipexole Di-HCl [Mirapex] 0.25 mg PO DAILY 11/26/16 Lisinopril [Prinivil] 2.5 mg PO BID tablet 02/11/17 Metoprolol Succinate [Toprol Xl -] 50 mg PO DAILY #30 tablet 02/11/17 Review of Systems - Review of Systems Constitutional: denies: Fever HENT: denies: Difficult Swallowing Gastrointestinal: reports: Abdominal Pain, Bloating, Diarrhea. denies: Constipation, Dysphagia, Nausea, Vomiting Blood Physical Exam-GI Vital Signs: Vital Signs Temperature 97.7 F 03/11/17 15:18 Pulse Rate 66 03/11/17 15:18 Respiratory Rate 18 03/11/17 15:18 Blood Pressure 166/78 03/11/17 15:18 O2 Sat by Pulse Oximetry (%) 97 03/11/17 09:00 Constitutional: Yes: Obese Eyes: Yes: Conjunctiva Clear HENT: Yes: Atraumatic Neck: Yes: Supple Cardiovascular: Yes: Regular Rate and Rhythm Respiratory: Yes: CTA Bilaterally ...Palpate: Yes: Soft. No: Firm/Rigid, Guarding, Hepatomegaly, Mass, Pulsatile Mass, Splenomegaly, Tenderness ...Percussion: Yes: Tympanitic Labs: CBC, BMP 03/11/17 06:15 03/11/17 06:15 Problem List - Problems (1) Gastroparesis Assessment/Plan: maintain on Reglan 5mg 30 min ac x 4 weeks Protonix 40mg daily Code(s): K31.84 - GASTROPARESIS (2) IBS (irritable bowel syndrome) Assessment/Plan: suspect underlying bacterial overgrowth and pancreatic insufficiency due to fatty food intolerance R>Pancreatic enzyme with meals Xifaxan 550mg tid low fiber lactose free FUA--r/o fecal impaction Code(s): K58.9 - IRRITABLE BOWEL SYNDROME WITHOUT DIARRHEA
[2017-03-11] MEDS ORDERED: PANTOPRAZOLE SODIUM 100 ML IVPB ONE (18:39)
[2017-03-11] MEDS: ONDANSETRON 4 MG/2 ML VIAL IVPB SCH ×2 (19:04→22:36)
[2017-03-11] MEDS: LIPASE/PROTEASE/AMYLASE 6,000 UNIT CAPSULE PO SCH (19:45)
[2017-03-11] MEDS ORDERED: PT OWN MED DRAWER 7, Y5N ONE (20:07)
[2017-03-11] MEDS: RIFAXIMIN 550 MG TABLET (UD) PO SCH (23:36)
[2017-03-11] MEDS: ATORVASTATIN CA 20 MG TABLET (FP) PO SCH (23:36)
[2017-03-11] MEDS: METOCLOPRAMIDE HCL INJECTION 10 MG/2 ML VIAL IVPB SCH (23:38)
[2017-03-12] MEDS: ONDANSETRON 4 MG/2 ML VIAL IVPB SCH ×2 (02:28→06:29)
[2017-03-12] MEDS: METOCLOPRAMIDE HCL INJECTION 10 MG/2 ML VIAL IVPB SCH (06:02)
[2017-03-12] MEDS: hydrALAZINE HCL 50 MG TABLET (FP) PO SCH (06:02)
[2017-03-12] MEDS: INSULIN SLIDING SCALE (NOVOLOG) 1 VIAL SQ SCH (06:30)
[2017-03-12] MEDS ORDERED: ONDANSETRON 4 MG/2 ML VIAL IVPB PRN (06:40)
--- NOTE | 2017-03-12 08:08 | DS ---
Physical Examination Vital Signs: Vital Signs Temperature 97.9 F 03/12/17 06:00 Pulse Rate 86 03/12/17 06:00 Respiratory Rate 20 03/12/17 06:00 Blood Pressure 139/75 03/12/17 06:00 O2 Sat by Pulse Oximetry (%) 97 03/11/17 21:00 Findings/Remarks: FEELS BETTER Cardiovascular: Yes: Regular Rate and Rhythm Respiratory: Yes: Regular, CTA Bilaterally Gastrointestinal: Yes: Normal Bowel Sounds, Soft Labs: CBC, BMP 03/11/17 06:15 Discharge Summary Reason For Visit: HYPERKALEMIA Current Active Problems Acute hyperkalemia (Acute) CKD (chronic kidney disease) (Acute) Gallbladder disorder (Acute) Gastroparesis (Acute) IBS (irritable bowel syndrome) (Acute) Nausea (Acute) Otitis media (Acute) Hospital Course: 61-year-old female sent for evaluation of elevated potassium which was noted to be 7.0. Patient states had her blood drawn yesterday and was given blood transfusion 2 weeks ago. Patient denies any chest pain, shortness of breath, lower extremity edema, fatigue, palpitations, headache, or change in bowel pattern or weight. Patient history of anemia, asthma, uterine CA, cardiac arrhythmias, COPD, CHF, diabetes, chronic kidney disease, and hypertension. - Past Medical History Cardiovascular: Yes: CHF, HTN, Hyperlipdemia, Pulmonary Hypertension Pulmonary: Yes: Asthma, Sleep Apnea (on BIPAP at night) Gastrointestinal: Yes: GI Bleed (see HPI), Other (had EGD and colono 12/31, ) Renal/: Yes: Renal Failure, Renal Inusuff ...LMP: 11/17/07 Heme/Onc: Yes: Anemia Endocrine: Yes: Diabetes Mellitus (uncontrolled) - Smoking History Smoking history: Current every day smoker - Problems (1) Acute hyperkalemia Assessment/Plan: IMPROVED--5.3--continue with kayexalate OFF EVELINA MONITOR ON KAYEXALATE 3 TIMES A WEEK Code(s): E87.5 - HYPERKALEMIA (2) CKD (chronic kidney disease) Assessment/Plan: DC DIURETIC AND MONITOR OFF IVF WILL NEED DIURETIC LONGTERM--WITH CLOSE MONITORING Code(s): N18.9 - CHRONIC KIDNEY DISEASE, UNSPECIFIED Qualifiers: Chronic kidney disease stage: stage 4 (severe) Qualified Code(s): N18.4 - Chronic kidney disease, stage 4 (severe) (3) Anemia Assessment/Plan: STABLE MONITOR Code(s): D64.9 - ANEMIA, UNSPECIFIED Qualifiers: 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 Qualified Code(s): D50.0 - Iron deficiency anemia secondary to blood loss ( chronic) (4) Benign hypertension Assessment/Plan: OBSERVE ON CURRENT MEDS OFF EVELINA AND OFF LASIX Code(s): I10 - ESSENTIAL (PRIMARY) HYPERTENSION (5) CHF (congestive heart failure) Assessment/Plan: STABLE CLOSE MONITORING ON LASIX 20 DAILY DAILY WTS Code(s): I50.9 - HEART FAILURE, UNSPECIFIED Qualifiers: Congestive heart failure type: unspecified congestive heart failure type Congestive heart failure chronicity: acute on chronic Qualified Code(s ): I50.9 - Heart failure, unspecified (6) Nausea Assessment/Plan: ADD PPI GI CONSULT Gastroparesis Assessment/Plan: maintain on Reglan 5mg 30 min ac x 4 weeks Protonix 40mg daily Code(s): K31.84 - GASTROPARESIS IBS (irritable bowel syndrome) Assessment/Plan: suspect underlying bacterial overgrowth and pancreatic insufficiency due to fatty food intolerance R>Pancreatic enzyme with meals Xifaxan 550mg tid low fiber lactose free FUA--r/o fecal impaction Code(s): K58.9 - IRRITABLE BOWEL SYNDROME WITHOUT DIARRHEA Code(s): R11.0 - NAUSEA (7) Otitis media Assessment/Plan: ON ROCEPHIN Code(s): H66.90 - OTITIS MEDIA, UNSPECIFIED, UNSPECIFIED EAR (8) Gallbladder disorder Assessment/Plan: gi and surgical consult SURGICAL CONSULT pt seen and examined. full consult dictated. 61f with multiple medical problems, admitted for hyperkalemia, noted to have 3 days of nausea. w/u shows contracted gb with stones on u/s. Pt denies abd pain. occasional diarrhea with greasy meals. on exam abd is soft, nt, nd. well healed pfannesteil incision. Plan- gallstones, nausea. suspect unrelated. agree with GI eval. cholecystectomy can be considered however doubt gb is source of symptoms. Code(s): K82.9 - DISEASE OF GALLBLADDER, UNSPECIFIED Condition: Improved - Instructions Referrals: Anyi Mcgrath MD [Primary Care Provider] - 1 Week Disposition: HOME - Home Medications Comprehensive Discharge Medication List: Ambulatory Orders Aspirin 81 mg PO DAILY 01/18/14 Albuterol 0.083% Nebulizer Laura [Ventolin 0.083% Nebulizer Soln -] 1 neb NEB Q4H PRN #120 vial 11/19/14 Alprazolam [Xanax] 0.5 mg PO HS PRN #15 tablet 11/19/14 Hydralazine HCl [Apresoline -] 50 mg PO BID #60 tablet 11/19/14 Folic Acid 1 mg PO DAILY 01/09/16 Atorvastatin Ca [Lipitor] 20 mg PO HS 11/25/16 Pramipexole Di-HCl [Mirapex] 0.25 mg PO DAILY 11/26/16 Metoprolol Succinate [Toprol XL -] 50 mg PO DAILY #30 tablet 02/11/17 Cefuroxime Axetil [Ceftin -] 250 mg PO BID #10 tablet 03/12/17 Furosemide [Lasix -] 20 mg PO DAILY #30 tablet 03/12/17 Lipase/Protease/Amylase [Creon Dr 6,000 Units Capsule] 3 cap PO TIDCM #270 tab 03/12/17 Metoclopramide HCl [Reglan -] 10 mg PO TID #90 tablet 03/12/17 Pantoprazole Sodium [Protonix -] 40 mg PO DAILY #30 tab 03/12/17 Rifaximin [Xifaxan -] 550 mg PO BID #60 tablet 03/12/17 Sodium Polystyrene Sulfonate [Kayexalate] 15 gm PO ONCE #1 bottle 03/12/17
[2017-03-12] MEDS: LIPASE/PROTEASE/AMYLASE 6,000 UNIT CAPSULE PO SCH (08:30)
[2017-03-12 08:50] LABS: CALCIUM 8.9 mg/dL (8.5-10.1); COCKROFT - GAULT 37.91; CREATININE 2.1 mg/dL (0.55-1.02)
[2017-03-12] MEDS: RIFAXIMIN 550 MG TABLET (UD) PO SCH (09:29)
[2017-03-12] MEDS: METOPROLOL SUCCINATE 50 MG TAB.SR.24H (FP) PO SCH (09:29)
[2017-03-12] MEDS: HEPARIN NA (PORCINE) 5,000 UNITS/ML 1ML VIAL SQ SCH ×2 (09:29→09:35)
[2017-03-12] MEDS: FOLIC ACID 1 MG TABLET (FP) PO SCH (09:29)
[2017-03-12] MEDS: ASPIRIN 81 MG CHEWABLE TABLETS PO SCH (09:29)
[2017-03-12] MEDS: PANTOPRAZOLE 40 MG TABLET (FP) PO SCH (09:29)
[2017-03-12] MEDS: cefTRIAXone 1 GM/50 ML BAG (PRE-DOCKED) IVPB SCH (09:29)
[2017-03-12] MEDS: PRAMIPEXOLE DIHYDROCHLORIDE 0.25 MG TABLET PO SCH (09:30)
[2017-03-12] MEDS: CIPRODEX AD SCH (09:31)
[2017-03-12 10:26] VITALS: BP 144/85; PULSE 82; TEMP 98.8
== END 2017-03-12 10:47 | disposition home or self-care (01) | DRG 641 ==
LOC: JER 14:14 → JERBED 15:58 → J4W 18:52 → J8W 03-08 18:12
PROVIDERS: ADMIT Family Medicine; ATTEND Family Medicine
DX: E87.5 Hyperkalemia (principal); I13.0 Hypertensive heart and chronic kidney disease with heart failure and stage 1 through stage 4 chronic kidney disease, or unspecified chronic kidney disease; N18.4 Chronic kidney disease, stage 4 (severe); I50.22 Chronic systolic (congestive) heart failure; I42.9 Cardiomyopathy, unspecified; N17.9 Acute kidney failure, unspecified; I27.2 Other secondary pulmonary hypertension; G47.33 Obstructive sleep apnea (adult) (pediatric); E78.5 Hyperlipidemia, unspecified; D50.9 Iron deficiency anemia, unspecified; J44.9 Chronic obstructive pulmonary disease, unspecified; J45.909 Unspecified asthma, uncomplicated; I25.10 Atherosclerotic heart disease of native coronary artery without angina pectoris; F41.9 Anxiety disorder, unspecified; H66.90 Otitis media, unspecified, unspecified ear; R11.0 Nausea; K82.9 Disease of gallbladder, unspecified; Z85.42 Personal history of malignant neoplasm of other parts of uterus; E66.9 Obesity, unspecified; K31.84 Gastroparesis; K58.9 Irritable bowel syndrome, unspecified; Z68.30 Body mass index [BMI] 30.0-30.9, adult
CPT/HCPCS: 36415; 71010-TC; 71020-TC; 74020-TC; 76700-TC; 80048; 80053; 80076; 82150; 83690; 83735; 85025; 93005; 93010; 99284-25; J1644

== ENCOUNTER 2017-06-21 21:06 | Emergency (ER) | payer OTHER ==
[2017-06-21 21:18] VITALS: BP 152/78; PULSE 93; TEMP 98; BMI 32.3
--- NOTE | 2017-06-21 21:47 | PDOC ---
History of Present Illness - General Chief Complaint: Shortness of Breath Stated Complaint: SOB Time Seen by Provider: 06/21/17 21:34 History Source: Patient Exam Limitations: No Limitations - History of Present Illness Initial Comments: 06/22/17 00:40 61-year-old female with multiple comorbidities presents to the ER with generalized weakness, dizziness when ambulating, unsteady gait and low iron. Patient's symptoms have worsened over the past several days. She was seen and evaluated her primary care physician's office in 48 hours previously when she was diagnosed with low iron. Patient denies melena/bright red blood per rectum. Patient has undergone an extensive evaluation for recurrent anemia which requires packed RBC transfusions which included EGD and colonoscopy without a definitive diagnosis. Patient denies chest pain/abdominal pain/nausea/vomiting. Patient reports chronic low back pain with resultant right leg weakness which she ascribes to a radiculopathy. Patient also reports that she was seen and evaluated by ENT for a draining right ear for which she was prescribed Cipro on echo without significant success. Patient denies headache/changes in vision. REVIEW OF SYSTEMS CONSTITUTIONAL: No fever, no chills, no fatigue, + weakness EYES: No visual changes ENT: No ear pain, no sore throat CARDIOVASCULAR: No chest pain, no palpitations RESPIRATORY: No cough, no SOB GI: No abdominal pain, no nausea, no vomiting, no constipation, no diarrhea GENITOURINARY: No dysuria, no frequency, no hematuria MUSKULOSKELETAL: No backpain, no joint pain, no myalgias SKIN: No rash NEURO: No headache, + dizziness HRMR: anemia EXAMINATION CONSTITUTIONAL: Awake and alert; pale appearing; well-nourished; in no apparent distress HEAD: Normocephalic; atraumatic EYES: PERRL; EOM intact; no nystagmus; conjunctivae were pale; ENMT: External appears normal; right ear: External auditory canal is filled with debris and purulent discharge with a perforation within tympanic membrane; there is no mastoid tenderness; NECK: Supple; non-tender; no cervical lymphadenopathy CARD: Normal S1, S2; no murmurs, rubs, or gallops; PMI is displaced laterally; RESP: Normal chest excursion with respiration; breath sounds clear and equal bilaterally; no wheezes, rhonchi, or rales ABD: Soft, non-distended; non-tender; no palpable organomegaly, no palpable hernias EXT: Normal passive ROM in all four extremities; non-tender to palpation; distal pulses intact SKIN: Warm, dry, no rash NEURO: Cranial nerves II through XII are grossly intact; motor is 5 of 5 to the upper extremities is bilaterally; left lower extremity: 5 of 5; right lower extremity: 505 at hip flexion/extension; 5 of 5 at knee flexion/extension; 3 of 5 at dorsiflexion/plantar flexion of the foot (known to be old); Past History - Past Medical History Allergies/Adverse Reactions: Allergies Allergy/AdvReac Type Severity Reaction Status Date / Time No Known Allergies Allergy Verified 06/21/17 21:10 Home Medications: Ambulatory Orders Aspirin 81 mg PO DAILY 01/18/14 Albuterol 0.083% Nebulizer Laura [Ventolin 0.083% Nebulizer Soln -] 1 neb NEB Q4H PRN #120 vial 11/19/14 Alprazolam [Xanax] 0.5 mg PO HS PRN #15 tablet 11/19/14 Hydralazine HCl [Apresoline -] 50 mg PO BID #60 tablet 11/19/14 Folic Acid 1 mg PO DAILY 01/09/16 Atorvastatin Ca [Lipitor] 20 mg PO HS 11/25/16 Pramipexole Di-HCl [Mirapex] 0.25 mg PO DAILY 11/26/16 Metoprolol Succinate [Toprol XL -] 50 mg PO DAILY #30 tablet 02/11/17 Furosemide [Lasix -] 20 mg PO DAILY #30 tablet 03/12/17 Lipase/Protease/Amylase [Creon Dr 6,000 Units Capsule] 3 cap PO TIDCM #270 tab 03/12/17 Pantoprazole Sodium [Protonix -] 40 mg PO DAILY #30 tab 03/12/17 Rifaximin [Xifaxan -] 550 mg PO BID #60 tablet 03/12/17 Metoclopramide HCl [Reglan -] 10 mg PO TID PRN 06/21/17 Anemia: Yes Asthma: Yes Cancer: Yes (UTERINE 2007) Cardiac Disorders: Yes (ARRYTHMIA) CVA: No COPD: Yes CHF: Yes Dementia: No Diabetes: Yes GI Disorders: Yes (NAUSEA AND VOMITING,COLON POLYP) Disorders: Yes HTN: Yes Hypercholesterolemia: Yes Liver Disease: No Suicide Attempt (Hx): No Seizures: No Thyroid Disease: No - Surgical History Abdominal Surgery: No Appendectomy: No Cardiac Surgery: No Cholecystectomy: No Lung Surgery: No Neurologic Surgery: No Orthopedic Surgery: No - Family Disease History Family Disease History: Other: Father (kidney disease), Brother (kidney disease) - Immunization History Immunization Up to Date: Yes - Psycho/Social/Smoking Cessation Hx Anxiety: No Suicidal Ideation: No Smoking Status: Yes Smoking History: Current every day smoker Years of Tobacco Use: 31 Have you smoked in the past 12 months: Yes Number of Cigarettes Smoked Daily: 7 Information on smoking cessation initiated: No 'Breaking Loose' booklet given: 02/06/17 Hx Alcohol Use: No Drug/Substance Use Hx: No Substance Use Type: None Hx Substance Use Treatment: No *Physical Exam - Vital Signs Last Vital Signs Temp Pulse Resp BP Pulse Ox 98 F 93 H 24 152/78 97 06/21/17 21:16 06/21/17 21:16 06/21/17 21:16 06/21/17 21:16 06/21/17 21:16 ED Treatment Course - LABORATORY CBC & Chemistry Diagram: 06/21/17 22:58 06/21/17 22:58 Medical Decision Making - Medical Decision Making 06/22/17 00:45 Patient is 61-year-old female with history of multiple comorbidities who presents to the ER with worsening weakness, gait imbalance and dizziness. In the ER, patient is awake and alert, hemodynamically stable, mildly orthostatic clinically. Neurological exam reveals weakness of right foot plantar flexion/ dorsiflexion which is known to be old. Cranial nerves are intact bilaterally; there is no pronation drift; there are no cerebellar signs. CT of head shows no evidence of acute intracranial pathology. There is no evidence of mastoiditis. I do not suspect labyrinthitis related to the otitis media with effusion at this time. Patient's CBC reveals moderate anemia with hemoglobin of 8.6 and hematocrit of 25. I believe patient's symptoms are in large part attributed to the symptomatic anemia. Patient's been advised of the need for admission and packed RBC transfusion. At this time however, patient is refusing. Patient states that she does not want to be admitted over the weekend. Patient will follow-up with her primary physician promptly on Friday. I've explained to the patient and risk associated with significant anemia which includes but is not limited to worsening anemia, frequent falls, head injury and even . Patient 's expressed understanding and still wishes to leave. *DC/Admit/Observation/Transfer Diagnosis at time of Disposition: Dizziness Otitis media Qualifiers: Otitis media type: unspecified Chronicity: acute Laterality: right Anemia Qualifiers: Anemia type: iron deficiency Iron deficiency anemia type: chronic blood loss Qualified Code(s): D50.0 - Iron deficiency anemia secondary to blood loss ( chronic) - Discharge Dispostion Disposition: HOME Condition at time of disposition: Fair - Referrals Referrals: Anyi Mcgrath MD [Staff Physician] - - Patient Instructions Printed Discharge Instructions: DI for Dizziness-Nonvertigo, DI for Iron Deficiency Anemia-Adult Additional Instructions: Your leaving AGAINST MEDICAL ADVICE. You're severely anemic and required blood transfusion at this time. You're at risk for frequent falls, head injury and even . Please follow-up with your primary care physician or return immediately to the ER if symptoms worsen.
[2017-06-21 23:18] LABS: BASOPHIL 0.3 % (0-2.0); EOSINOPHIL 1.7 % (0-4.5); MCH 30.1 pg (25.7-33.7); MCHC 32.5 g/dl (32.0-36.0); MEAN CELL VOLUME 92.5 fl (80-96); MEAN PLT VOLUME 9.5 fl (7.5-11.1); NEUTROPHILS 74.9 % (42.8-82.8); PLATELET COUNT 249 K/MM3 (134-434); RDW 16.4 % (11.6-15.6)
[2017-06-21 23:45] LABS: ALBUMIN 3.1 g/dl (3.4-5.0); ANION GAP 8 (8-16); BILIRUBIN,TOTAL 0.4 mg/dL (0.2-1.0); CALCIUM 8.5 mg/dL (8.5-10.1); CO2 22 mmol/L (21-32); CREATININE 2.2 mg/dL (0.55-1.02); GLUCOSE,RANDOM 299 mg/dL (74-106); SGPT/ALT 14 U/L (12-78); TOT PROT 6.9 g/dl (6.4-8.2)
[2017-06-21 23:47] LABS: ALK PHOS 107 U/L (45-117); SGOT/AST 20 U/L (15-37)
--- NOTE | 2017-06-22 08:52 | PDOC ---
Patient Follow-up (Call Back) - Post ED Follow - Up Condition at time of discharge: Fair Disposition at time of original discharge: AGAINST MEDICAL ADVICE Reason for Call Back: Radiology (Dr. Villalpando from radiology called to discuss Patient CT results Noemi states there is a middle ear process on rebreather CT scan questionable mastoiditis, based upon patient's clinical symptoms and presentation will treat patient with Augmentin. Will call patient to start on antibiotics.)
== END 2017-06-22 00:56 | disposition left against medical advice (07) ==
LOC: JER 21:06
DX: R42 Dizziness and giddiness (principal); H66.91 Otitis media, unspecified, right ear; D50.0 Iron deficiency anemia secondary to blood loss (chronic); I10 Essential (primary) hypertension; I50.9 Heart failure, unspecified; I49.9 Cardiac arrhythmia, unspecified; E78.00 Pure hypercholesterolemia, unspecified; J45.909 Unspecified asthma, uncomplicated; J44.9 Chronic obstructive pulmonary disease, unspecified; Z85.42 Personal history of malignant neoplasm of other parts of uterus; E11.9 Type 2 diabetes mellitus without complications; Z79.82 Long term (current) use of aspirin; F17.210 Nicotine dependence, cigarettes, uncomplicated
CPT/HCPCS: 36415; 70450-TC; 80053; 85025; 99282-25

== ENCOUNTER 2017-06-23 17:46 | Day surgery (SDC) | payer OTHER ==
[2017-06-23] MEDS ORDERED: METOPROLOL SUCCINATE 50 MG TAB.SR.24H (FP) PO ONE (20:15)
[2017-06-23] MEDS ORDERED: ALBUTEROL SO4 0.083% IH SOL 2.5 MG/3 ML VIAL.NEB. NEB PRN (23:44)
[2017-06-23] MEDS ORDERED: ALPRAZolam 0.25 MG TABLET PO ONE (23:45)
[2017-06-23] MEDS ORDERED: hydrALAZINE HCL 10 MG TABLET PO ONE (23:45)
[2017-06-24] MEDS ORDERED: FUROSEMIDE 40 MG/4 ML INJECTABLE VIAL IVPUSH ONE (00:15)
[2017-06-24 09:12] LABS: MCH 29.5 pg (25.7-33.7); MCHC 31.9 g/dl (32.0-36.0); MEAN CELL VOLUME 92.3 fl (80-96); MEAN PLT VOLUME 9.3 fl (7.5-11.1); PLATELET COUNT 254 K/MM3 (134-434); RDW 15.9 % (11.6-15.6); WHITE BLOOD COUNT 5.3 K/mm3 (4.0-10.0)
[2017-06-24 09:54] LABS: ALBUMIN 2.8 g/dl (3.4-5.0); ANION GAP 7 (8-16); CALCIUM 8.4 mg/dL (8.5-10.1); CO2 22 mmol/L (21-32); CREATININE 2.2 mg/dL (0.55-1.02); GLUCOSE,RANDOM 179 mg/dL (74-106); SGOT/AST 6 U/L (15-37); SGPT/ALT 11 U/L (12-78)
[2017-06-24 09:55] LABS: ALK PHOS 78 U/L (45-117); BILIRUBIN,TOTAL 0.4 mg/dL (0.2-1.0); TOT PROT 6.5 g/dl (6.4-8.2)
[2017-06-24] MEDS ORDERED: FOLIC ACID 1 MG TABLET (FP) PO SCH (10:00)
[2017-06-24] MEDS ORDERED: METOCLOPRAMIDE HCL 10 MG TABLET (FP) PO PRN (10:29)
[2017-06-24] MEDS ORDERED: ALPRAZolam 0.25 MG TABLET PO PRN (10:29)
[2017-06-24] MEDS ORDERED: ALBUTEROL SO4 0.083% IH SOL 2.5 MG/3 ML VIAL.NEB. NEB PRN (10:29)
[2017-06-24] MEDS ORDERED: ASPIRIN 81 MG CHEWABLE TABLETS PO SCH (10:30)
[2017-06-24] MEDS ORDERED: PANTOPRAZOLE 40 MG TABLET (FP) PO SCH (10:30)
[2017-06-24] MEDS ORDERED: METOPROLOL SUCCINATE 50 MG TAB.SR.24H (FP) PO SCH (10:30)
[2017-06-24] MEDS ORDERED: hydrALAZINE HCL 50 MG TABLET (FP) PO SCH (10:30)
[2017-06-24] MEDS ORDERED: FUROSEMIDE 20 MG TABLET (FP) PO SCH (10:30)
[2017-06-24] MEDS ORDERED: RIFAXIMIN 550 MG TABLET (UD) PO SCH (10:30)
[2017-06-24] MEDS ORDERED: PRAMIPEXOLE DIHYDROCHLORIDE 0.25 MG TABLET PO SCH (10:30)
[2017-06-24 11:16] VITALS: PULSE 64
[2017-06-24 11:20] VITALS: BP 134/76; TEMP 98.1
[2017-06-24] MEDS ORDERED: LIPASE/PROTEASE/AMYLASE 6,000 UNIT CAPSULE PO SCH (12:00)
[2017-06-24] MEDS ORDERED: ATORVASTATIN CA 20 MG TABLET (FP) PO SCH (22:00)
== END 2017-06-24 11:38 | disposition home or self-care (01) ==
LOC: J7W 17:46 → JBLOOD 17:46 → J7W 19:45 → JBLOOD 06-24 11:38
PROVIDERS: ATTEND Family Medicine
PROC: 30233N1 Transfusion of Nonautologous Red Blood Cells into Peripheral Vein, Percutaneous Approach (ICD-10-PCS; principal; 2017-06-23)
DX: D50.9 Iron deficiency anemia, unspecified (principal); Z53.8 Procedure and treatment not carried out for other reasons
CPT/HCPCS: 36415; 80053; 85027; 86870; 86902; 86922; 94640; 94660

== ENCOUNTER 2017-06-27 14:30 | Day surgery (SDC) | payer OTHER ==
[2017-06-27 15:35] LABS: MCH 29.8 pg (25.7-33.7); MCHC 32.1 g/dl (32.0-36.0); MEAN CELL VOLUME 92.8 fl (80-96); MEAN PLT VOLUME 9.6 fl (7.5-11.1); PLATELET COUNT 293 K/MM3 (134-434); RDW 15.8 % (11.6-15.6); WHITE BLOOD COUNT 4.9 K/mm3 (4.0-10.0)
[2017-06-27] MEDS ORDERED: FUROSEMIDE 40 MG/4 ML INJECTABLE VIAL IVPUSH ONE ×2 (16:15→20:00)
[2017-06-27] MEDS ORDERED: METOPROLOL SUCCINATE 50 MG TAB.SR.24H (FP) PO ONE (21:00)
[2017-06-27] MEDS ORDERED: FUROSEMIDE 40 MG/4 ML INJECTABLE VIAL ONE (23:32)
[2017-06-27] MEDS ORDERED: ALBUTEROL SO4 0.083% IH SOL 2.5 MG/3 ML VIAL.NEB. NEB PRN (23:36)
[2017-06-27] MEDS: ALPRAZolam 0.25 MG TABLET PO SCH (23:46)
[2017-06-28] MEDS: amLODIPine BESYLATE 5 MG TABLET (FP) PO SCH ×2 (03:24→09:38)
[2017-06-28 08:18] LABS: MCHC 33.2 g/dl (32.0-36.0); MEAN CELL VOLUME 90.3 fl (80-96); MEAN PLT VOLUME 9.6 fl (7.5-11.1); PLATELET COUNT 255 K/MM3 (134-434); RDW 15.9 % (11.6-15.6); WHITE BLOOD COUNT 6.7 K/mm3 (4.0-10.0)
[2017-06-28] MEDS ORDERED: FUROSEMIDE 40 MG/4 ML INJECTABLE VIAL IVPUSH ONE (09:14)
[2017-06-28] MEDS ORDERED: METOCLOPRAMIDE HCL 10 MG TABLET (FP) PO PRN (09:21)
[2017-06-28] MEDS ORDERED: ALBUTEROL SO4 0.083% IH SOL 2.5 MG/3 ML VIAL.NEB. NEB PRN (09:21)
--- NOTE | 2017-06-28 09:26 | DS ---
Physical Examination Vital Signs: Vital Signs Temperature 97.7 F 06/28/17 07:43 Pulse Rate 67 06/28/17 07:43 Respiratory Rate 20 06/28/17 07:43 Blood Pressure 158/84 06/28/17 07:43 O2 Sat by Pulse Oximetry (%) Findings/Remarks: 61 Y/O FEMALE WITH H/O ANEMIA ADMITTED FOR TRANSFUSION Cardiovascular: Yes: Regular Rate and Rhythm Respiratory: Yes: Regular, CTA Bilaterally Gastrointestinal: Yes: Normal Bowel Sounds, Soft Labs: CBC, BMP 06/28/17 06:00 Discharge Summary Reason For Visit: IRON DEFICIENCY ANEMIA Hospital Course: - Past Medical History Cardiovascular: Yes: CHF, HTN, Hyperlipdemia, Pulmonary Hypertension Pulmonary: Yes: Asthma, Sleep Apnea (on BIPAP at night) Gastrointestinal: Yes: GI Bleed (see HPI), Other (had EGD and colono 12/31, ) Renal/: Yes: Renal Failure, Renal Inusuff ...LMP: 11/17/07 Heme/Onc: Yes: Anemia Endocrine: Yes: Diabetes Mellitus (uncontrolled) ADMITTED FOR TRANSFUSION OF PRBC--2 UNITS FEELS WELL AND WANTS TO GO HOME SHE WILL FOLLOW UP WITH GI AND HEMATOLOGY OUTPATIENT Condition: Improved - Instructions Disposition: HOME - Home Medications Comprehensive Discharge Medication List: Ambulatory Orders Aspirin 81 mg PO DAILY 01/18/14 Albuterol 0.083% Nebulizer Laura [Ventolin 0.083% Nebulizer Soln -] 1 neb NEB Q4H PRN #120 vial 11/19/14 Hydralazine HCl [Apresoline -] 50 mg PO BID #60 tablet 11/19/14 Folic Acid 1 mg PO DAILY 01/09/16 Atorvastatin Ca [Lipitor] 20 mg PO HS 11/25/16 Pramipexole Di-HCl [Mirapex] 0.25 mg PO DAILY 11/26/16 Metoprolol Succinate [Toprol XL -] 50 mg PO DAILY #30 tablet 02/11/17 Furosemide [Lasix -] 20 mg PO DAILY #30 tablet 03/12/17 Lipase/Protease/Amylase [Creon Dr 6,000 Units Capsule] 3 cap PO TIDCM #270 tab 03/12/17 Pantoprazole Sodium [Protonix -] 40 mg PO DAILY #30 tab 03/12/17 Rifaximin [Xifaxan -] 550 mg PO BID #60 tablet 03/12/17 Metoclopramide HCl [Reglan -] 10 mg PO TID PRN 06/21/17 Alprazolam [Xanax] 0.25 mg PO HS PRN 06/23/17
[2017-06-28] MEDS: ALPRAZolam 0.25 MG TABLET PO SCH (09:38)
[2017-06-28] MEDS ORDERED: FOLIC ACID 1 MG TABLET (FP) PO SCH (10:00)
[2017-06-28] MEDS ORDERED: PANTOPRAZOLE 40 MG TABLET (FP) PO SCH (10:00)
[2017-06-28] MEDS ORDERED: hydrALAZINE HCL 50 MG TABLET (FP) PO SCH (10:00)
[2017-06-28] MEDS ORDERED: METOPROLOL SUCCINATE 50 MG TAB.SR.24H (FP) PO SCH (10:00)
[2017-06-28] MEDS ORDERED: FUROSEMIDE 20 MG TABLET (FP) PO SCH (10:00)
[2017-06-28] MEDS ORDERED: ASPIRIN 81 MG CHEWABLE TABLETS PO SCH (10:00)
[2017-06-28] MEDS ORDERED: RIFAXIMIN 550 MG TABLET (UD) PO SCH (10:00)
[2017-06-28 10:23] VITALS: BP 156/81; PULSE 70; TEMP 97.8
[2017-06-28] MEDS ORDERED: LIPASE/PROTEASE/AMYLASE 6,000 UNIT CAPSULE PO SCH (12:00)
[2017-06-28] MEDS ORDERED: PRAMIPEXOLE DIHYDROCHLORIDE 0.25 MG TABLET PO SCH (22:00)
[2017-06-28] MEDS ORDERED: ATORVASTATIN CA 20 MG TABLET (FP) PO SCH (22:00)
== END 2017-06-28 10:20 | disposition home or self-care (01) ==
LOC: JBLOOD 14:30 → J7W 14:30 → JBLOOD 06-28 10:20
PROVIDERS: ATTEND Family Medicine
PROC: 30233N1 Transfusion of Nonautologous Red Blood Cells into Peripheral Vein, Percutaneous Approach (ICD-10-PCS; principal; 2017-06-27)
DX: D50.9 Iron deficiency anemia, unspecified (principal)
CPT/HCPCS: 36415; 36430; 85027; 86850; 86870; 86900; 86901; 86902; 86922; 94660; P9038; P9058

== ENCOUNTER 2017-11-28 11:20 | Inpatient (IN) | payer OTHER ==
--- NOTE | 2017-11-28 11:51 | PDOC ---
History of Present Illness - General Chief Complaint: Edema Stated Complaint: SWOLLEN LEGS/FEET Time Seen by Provider: 11/28/17 11:50 - History of Present Illness Initial Comments: 11/28/17 12:56 The patient is a 62 year old female with a history of HTN, CHF, COPD, HLD, DM, CKD who presents for evaluation of lower extremity edema. The patient reports a 3 day history of worsening lower extremity edema. She noted some worsening SOB earlier today prompting her presentation to the ED for evaluation. She states that her symptoms feel similar to her prior chf exacerbations. She denies any fevers, chills, chest pain, nausea, vomiting, abdominal pain, or changes with urination or bowel movements. She notes worsening symptoms despite taking 80mg of furosimide as her daily medication. Past History - Past Medical History Allergies/Adverse Reactions: Allergies Allergy/AdvReac Type Severity Reaction Status Date / Time No Known Allergies Allergy Verified 11/28/17 11:30 Home Medications: Ambulatory Orders Hydralazine HCl [Apresoline -] 50 mg PO BID #60 tablet 11/19/14 Folic Acid 1 mg PO DAILY 01/09/16 Atorvastatin Ca [Lipitor] 20 mg PO HS 11/25/16 Metoprolol Succinate [Toprol XL -] 50 mg PO DAILY #30 tablet 02/11/17 Alprazolam [Xanax] 0.5 mg PO HS 06/23/17 Amoxicillin/Potassium Clav [Augmentin 875-125 Tablet] 1 tab PO BID 11/28/17 Ciprofloxacin HCl/Dexameth [Ciprodex Otic Suspension] 4 drop BC BID 11/28/17 Fluticasone/Vilanterol [Breo Ellipta 100-25 Mcg INH] 1 each IH DAILY 11/28/17 Furosemide [Lasix -] 80 mg PO DAILY 11/28/17 Sodium Polystyrene Sulfon/Sorb [Sps] 30 gm RC ASDIR 11/28/17 Anemia: Yes Asthma: Yes Cancer: Yes (UTERINE 2007) Cardiac Disorders: Yes (ARRYTHMIA) CVA: No COPD: Yes CHF: Yes Dementia: No Diabetes: Yes GI Disorders: Yes (NAUSEA AND VOMITING,COLON POLYP) Disorders: Yes HTN: Yes Hypercholesterolemia: Yes Liver Disease: No Seizures: No Thyroid Disease: No - Surgical History Abdominal Surgery: No Appendectomy: No Cardiac Surgery: No Cholecystectomy: No Lung Surgery: No Neurologic Surgery: No Orthopedic Surgery: No - Family Disease History Family Disease History: Other: Father (kidney disease), Brother (kidney disease) - Immunization History Immunization Up to Date: Yes - Suicide/Smoking/Psychosocial Hx Smoking Status: Yes Smoking History: Current every day smoker Years of Tobacco Use: 31 Have you smoked in the past 12 months: Yes Number of Cigarettes Smoked Daily: 8 Information on smoking cessation initiated: No 'Breaking Loose' booklet given: 06/23/17 Hx Alcohol Use: No Drug/Substance Use Hx: No Substance Use Type: None Hx Substance Use Treatment: No Review of Systems - Review of Systems Comments:: 11/28/17 12:59 Constitutional: No fevers, chills, fatigue, malaise HEENT: No Rhinorrhea, nasal congestion, visual changes Cardiovascular: No chest pain, syncope, palpitations, lightheadedness Respiratory: SOB. No Cough, Hemoptysis, Gastrointestinal: No Abdominal pain, Nausea, Vomiting, Constipation, Diarrhea, Genitourinary: No Dysuria, Frequency, Urgency, Hesitancy, Hematuria, Flank pain Musculoskeletal: Lower extremity edema. No Myalgia, arthralgia Skin: No rashes, bruising, pallor Neurologic: No Headache, Dizziness, Numbness, Weakness, or Tingling Psychiatric: No Hallucinations. No SI or HI *Physical Exam - Vital Signs Last Vital Signs Temp Pulse Resp BP Pulse Ox 98.5 F 72 19 148/66 96 11/28/17 11:30 11/28/17 11:30 11/28/17 11:30 11/28/17 11:30 11/28/17 11:30 - Physical Exam Comments: 11/28/17 12:59 General Appearance: Nourished. No Apparent Distress HEENT: EOMI, SREEDHAR. No Pharyngeal Erythema, Tonsillar Exudate, Tonsillar Erythema Neck: No Cervical Lymphadenopathy Respiratory/Chest: Lungs Clear, Normal Breath Sounds. No Crackles, Rales, Rhonchi, Wheezing Cardiovascular: Regular Rhythm, Regular Rate. No Murmur, Gallops, Rubs Gastrointestinal/Abdominal: Normal Bowel Sounds, Soft. No Guarding, Rebound, Tenderness Musculoskeletal: No CVA Tenderness Extremity: 2+ pitting edema bilaterally in the lower extremities. Normal Capillary Refill Integumentary: Normal Color, Dry, Warm Neurologic: Fully Oriented, Alert, Normal Mood/Affect, Normal Response, ED Treatment Course - LABORATORY CBC & Chemistry Diagram: 11/28/17 12:45 11/28/17 12:45 Medical Decision Making - Medical Decision Making 11/28/17 13:00 The patient is a 62 year old female with a history of HTN, CHF, COPD, HLD, DM, CKD who presents for evaluation of lower extremity edema. Differential includes but is not limited to: CHF exacerbation, pneumonia, infectious, metabolic derangement. Given the patient's similar symptoms to her prior chf exacerbations as well as physical exam, it is likely her symptoms are due to another chf exacerbation. We will send a cbc, cmp, bnp, ekg and chest plain film to evaluate for other etiologies. We will continue to monitor and reassess. 11/28/17 15:11 cbc demonstrates a hgb of 8.1. cmp is remarkable for a potassium of 5.2 and a creatinine of 2.3. BNP is elevated to 21,000s. We believe the patient requires admission for further management of her symptoms at this time. It appears her symptoms may be due to a combination of an anemia as well as a chf exacerbation. We discussed the case with Dr. Meyers who will come evaluate the patient and provide recommendations regarding diuresis. We discussed the case with Dr. Mcgrath who accepted the patient for admission. *DC/Admit/Observation/Transfer Diagnosis at time of Disposition: Symptomatic anemia CKD (chronic kidney disease) Qualifiers: Chronic kidney disease stage: unspecified stage Qualified Code(s): N18.9 - Chronic kidney disease, unspecified CHF (congestive heart failure) Qualifiers: Congestive heart failure type: unspecified Congestive heart failure chronicity : acute on chronic Qualified Code(s): I50.9 - Heart failure, unspecified - Discharge Dispostion Condition at time of disposition: Guarded Admit: Yes - Referrals Referrals: Anyi Mcgrath MD [Primary Care Provider] - - Patient Instructions - Post Discharge Activity
--- NOTE | 2017-11-28 12:22 | PDOC ---
Attending Attestation - Medical Decision Making 11/28/17 13:48 First call placed to Dr. Naqvi at 13:48. As per answering service Dr. Meyers is covering the hospital today. Paged Dr. Meyers overhead at 13:49. Documentation prepared by Neymar Estevez, acting as electromedical equipment technician for Michael Yuan MD. <Neymar Estevez - Last Filed: 11/28/17 13:48> - Resident Resident Name: Mitchell Henao - ED Attending Attestation I have performed the following: I have examined & evaluated the patient, The case was reviewed & discussed with the resident, I agree w/resident's findings & plan, Exceptions are as noted - HPI HPI: 11/28/17 12:11 62y F hx of htn, dm, hl, cad, chf, breast ca, kidney disease p/w 3 days of LE edema with sob, feels c/w prior CHF exacerbsation - no associated cp, abd pain, f/c. Pt does endorse some orthopnea. Pt also endorses a recent uri/cough/ congestion. Pt taking her lasix at home without significant improvement. on exam pt noted to have bl pitting edmea 2+, neg homans sign, no calf tenderness pulm exam noted for clera lungs cardiac exam reveals no /,r/g vitals noted for mild htn suspect chf exacerbation will admit the pt for further management will d/w cardiology regarding optimal diuretic choice du to the pts renal insufficiency - Physicial Exam PE: 11/30/17 08:15 see above <Michael Yuan - Last Filed: 11/30/17 08:15> Heart Score/ECG Review - ECG Impressions Comment:: 11/28/17 14:07 Twelve-lead EKG was performed and reviewed by me. There is normal sinus rhythm with a normal rate. Rate of [address]-T wave changes <Michael Yuan - Last Filed: 11/30/17 08:15>
[2017-11-28 12:55] LABS: BASO % 0.4 % (0-2.0); EOS % 0.9 % (0-4.5); HEMATOCRIT 26.1 % (32.4-45.2); HEMOGLOBIN 8.1 GM/dL (10.7-15.3); LYMPH % 9.4 % (8-40); MCH 27.8 pg (25.7-33.7); MCHC 30.9 g/dl (32.0-36.0); MEAN CELL VOLUME 89.9 fl (80-96); MEAN PLT VOLUME 8.9 fl (7.5-11.1); MONO % 8.8 % (3.8-10.2); NEUT % 80.5 % (42.8-82.8); PLATELET COUNT 250 K/MM3 (134-434); RBC 2.91 M/mm3 (3.60-5.2); WHITE BLOOD COUNT 7.8 K/mm3 (4.0-10.0)
[2017-11-28 13:13] LABS: ALBUMIN 2.9 g/dl (3.4-5.0); ANION GAP 11 (8-16); BLOOD UREA NITROGEN 53 mg/dL (7-18); CALCIUM 8.5 mg/dL (8.5-10.1); CHLORIDE 106 mmol/L (98-107); CO2 21 mmol/L (21-32); GLUCOSE,RANDOM 255 mg/dL (74-106); POTASSIUM 5.2 mmol/L (3.5-5.1); SGOT/AST 15 U/L (15-37); SGPT/ALT 12 U/L (12-78); SODIUM 138 mmol/L (136-145)
[2017-11-28 13:18] LABS: ALK PHOS 108 U/L (45-117); BILIRUBIN,TOTAL 0.3 mg/dL (0.2-1.0); CREATININE 2.3 mg/dL (0.55-1.02); TOT PROT 7.1 g/dl (6.4-8.2)
--- NOTE | 2017-11-28 16:40 | CON.CARD ---
Cardiology Consult (text) - Consultation Consultation Note: 62 yo smoker with h/o systolic cardiomyopathy, non-obstructive cad, HTN, HL, pHTN, PAD, mod PARVEZ on cpap, CKD (cr 1.8 - 2.2), DM, h/o GIB s/p cauterization of avm's, recent diagnosis of breast cancer who p/w sob. over the past few days with increased sob, worsened orthonpea, le edema. has not weighed herself. endorses adherence to lasix, but per dr. colvin's notes lasix increased from 80 daily to bid in august, but she states she only increased from a lower daily dose to 80 mg daily and has been taking 80 mg daily for the past three weeks has had cough. previously with congestion/runny nose, now resolved. no f/c/s had recent lumpectomy and port placement. has not yet started chemotherapy + limiting chronic claudication after 1/2 block, stable. + chronic rash to her left arm. No cp, palps, dizzy, loc, pnd, Sees dr colvin for cardio. PMHx/PSHx: per hpi Social hx: current smoker, family hx: mother CVA in 60s, fatal periop event 67 (? [place]) ros per hpi; no nvd, rodriguez, vision changes, bleeding Ambulatory Orders Hydralazine HCl [Apresoline -] 50 mg PO BID #60 tablet 11/19/14 Folic Acid 1 mg PO DAILY 01/09/16 Atorvastatin Ca [Lipitor] 20 mg PO HS 11/25/16 Metoprolol Succinate [Toprol XL -] 50 mg PO DAILY #30 tablet 02/11/17 Alprazolam [Xanax] 0.5 mg PO HS 06/23/17 Amoxicillin/Potassium Clav [Augmentin 875-125 Tablet] 1 tab PO BID 11/28/17 Ciprofloxacin HCl/Dexameth [Ciprodex Otic Suspension] 4 drop BC BID 11/28/17 Fluticasone/Vilanterol [Breo Ellipta 100-25 Mcg INH] 1 each IH DAILY 11/28/17 Furosemide [Lasix -] 80 mg PO DAILY 11/28/17 Sodium Polystyrene Sulfon/Sorb [Sps] 30 gm RC ASDIR 11/28/17 per office notes, on toprol 25 mg bid Current Medications Acetaminophen (Tylenol -) 650 mg PO Q4H PRN PRN Reason: PAIN Alprazolam (Xanax -) 0.5 mg PO HS ALDO Atorvastatin Calcium (Lipitor -) 20 mg PO HS ALDO Folic Acid (Folic Acid -) 1 mg PO DAILY ALDO Furosemide (Lasix Injection -) 40 mg IVPUSH BID@0600,1400 ALDO Hydralazine HCl (Apresoline -) 50 mg PO BID ALDO Metoprolol Succinate (Toprol Xl -) 50 mg PO DAILY ALDO pe: Vital Signs - 24 hr 11/28/17 11:30 Temperature 98.5 F Pulse Rate 72 Respiratory 19 Rate Blood Pressure 148/66 O2 Sat by Pulse 96 Oximetry (%) Intake & Output 11/26/17 11/27/17 11/28/17 11/29/17 07:59 07:59 07:59 07:59 Weight 195 lb NAD, no jvd RRR nl s1, s2 no m/r/g cta bl nl eff aaox3 1+ le edema. no c/c abd nt nd pos bs diminished dp pt, no carotid bruits no jaundice diaphoresis CBC, BMP 11/28/17 12:45 11/28/17 12:45 Laboratory Tests 06/04/17 07/08/17 08/25/17 13:06 12:20 10:59 Creatinine 2.1 H 2.2 H Ferritin Total Bilirubin AST ALT Alkaline Phosphatase Creatine Kinase Troponin I B-Natriuretic Peptide 68992.41 H Albumin 11/28/17 11/28/17 12:45 14:11 Creatinine Ferritin 766.873 H Total Bilirubin 0.3 D AST 15 D ALT 12 D Alkaline Phosphatase 108 Creatine Kinase 145 Troponin I 0.02 B-Natriuretic Peptide 25089.70 H Albumin 2.9 L ekg: poor baseline. nsr. non-specific inferolateral t wave abnormalities. tele: sr cxr: mild bilateral increased lung markings. Echo 07/2017: tds: mod lve. moderately reduced lvef, global. nl rv size/fn. mild-mod mac. mild-mod mr. mod tr. rvsp 45. Echo 06/2016: mod LVE, mod decr EF (no EF reported); mild RVE and mild HK; mild L /ANISH; valves WNL; no RVSP LHC 06/29: nl EDP; EF 40% (global); 50-60% OM1 (normal FFR); mild dz others a/p: 62 yo smoker with h/o systolic cardiomyopathy, non-obstructive cad, HTN, HL, pHTN, PAD, mod PARVEZ on cpap, CKD (cr 1.8 - 2.2), DM, h/o GIB s/p cauterization of avm's, recent diagnosis of breast cancer who p/w sob. chronic systolic chf: - Known biventricular (nonischemic) cardiomyopathy/pHTN. - here with signs of right sided congestion. ctab, but + sx's of pulm edema and possible congestion on cxr. --> trial of diuresis. start 80 mg daiy which has worked in the past. Monitor bmp closely, at risk for malina/worsened hyperkalemia. - evaluation for copd contribution to sob per pmd. - cont bb. not on anneliese due to hyperkalemia. con't home hydralazine. will add imdur. - daily weight, i/o's, bmp hyperkalemia: -pt has known hx of hyperkalemia managed with prn kayexalate by renal (digiorno) -off lisinopril permanently -monitor direction of k with diuresis. malina on ckd: -baseline cr 1.8-2.1, sligtly up here. -monitor with diuresis Mod PARVEZ - con't cpap HTN - con't hydralazine, metoprolol, adding imdur. HL - con't statin anemia, iron-deficient - chronic, follows closely with dr white/candice/shasta as outpt
[2017-11-28] MEDS ORDERED: FUROSEMIDE 40 MG/4 ML INJECTABLE VIAL IVPUSH SCH (18:06)
[2017-11-28] MEDS: METOPROLOL SUCCINATE 25 MG TAB.SR.24H (FP) PO SCH ×2 (18:28→21:27)
[2017-11-28] MEDS: ISOSORBIDE DINITRATE 10 MG TABLET (FP) PO SCH (18:28)
--- NOTE | 2017-11-28 19:23 | PN ---
Progress Note (short form) - Note Progress Note: Aspir-81 MG TBEC, once daily 0 days, 0 refills Atorvastatin Calcium 40 MG Tablet once daily 0 days, 0 refills BuPROPion HCl ER (SR) 150 MG Tablet Extended Release 12 Hour once daily 0 days , 0 refills Cefuroxime Axetil 250 MG Tablet once daily 0 days, 0 refills Creon [id number] UNIT Capsule Delayed Release Particles twice a day 0 days, 0 refills escitalopram 10mg Tablet once daily 0 days, 0 refills Fluticasone Propionate 50 MCG/ACT Suspension once daily 0 days, 0 refills Folic Acid 1 MG Tablet once daily 0 days, 0 refills Furosemide 80MG Oral Tablet once daily, 90 days, 3 refills GlyBURIDE 5 MG Tablet once daily 0 days, 0 refills Metoclopramide HCl 10 MG Tablet once daily 0 days, 0 refills Metoprolol Succinate ER 25 MG Tablet Extended Release 24 Hour twice a day, 90 days, 3 refills Pantoprazole Sodium 40 MG Tablet Delayed Release once daily 0 days, 0 refills Pramipexole .25mg Tablet once daily 0 days, 0 refills Welchol 625 MG Tablet twice a day 0 days, 0 refills CHF--mild LVE/mild decr EF; mult admits for chf, med non-compliance ? contributing HTN--stable DM--A1c 11% in hospital 01/28 PARVEZ (mod PARVEZ with severe desats 2012)--complying with cpap CRI--creat 1.3-1.4 (ARF to 1.9 in hosp); stable 06/29 (digiorno labs) PAD--abnl PVRs, no sx's + active cigs (1/2 PPD) FH: mother CVA in 60s, fatal periop event 67 (? [place]) bronchospasm--wheezing occasionally with URIs; denies COPD Fe-def/anemia: had EGD, FOC, capsule with lantin and then had SB studies with Dr Herr and had ? AVMs cauterized. LHC 06/29: nl EDP; EF 40% (global); 50-60% OM1 (normal FFR); mild dz others MIBI 06/29 (pers): no STs; moder, partly rev defect AW c/w ischemia; mild LVE, mild-mod global LV hypo (40% EF); MILD TID MIBI 08/27 (pers): no ST change; TDS perfusion b/c of GI artifact and gating artifact; mild LV dilation and mild decr EFvisually (no TID) Chronic ischemic heart disease NONOBSTR OM (INCL FFR NEGATIVE). NO ANGINA. CONT ASA, STATIN DOING Congestive heart failure with systolic and diastolic dysfunction LVEF HAS DECLINED SOMEWHAT--NOW MODERATELY REDUCED SINCE 2016, STABLE ON 08/03 STUDY. EUVOLEMIC WHEN HERE 07/03, ON LASIX 80 QD THEN AND SINCE. WT ACTUALLY DOWN 8 LBS SINCE THEN (? BREAST CA RELATED), BUT SHE IS C/O NEW ORTHOPNEA FOR THE PAST 3 NIGHTS, AND JVD IS MINIMALLY/MILDLY ELEVATED. INCR LASIX TO 80 BID X 3D. WILL HAVE PHONE CONTACT AT THAT TIME AND, DEPENDING ON SOB AND F/U BUN/CREAT GIVE DOSE REC.S AT THAT TIME. TOLERATING INCR METOPR TO 25 BID WITHOUT SIGNIF WHEEZING--CONT SAME. SHE'S PROVEN INCAPABLE OF REMAINING ON EVEN LOW DOSE EVELINA DUE TO NONCOMLIANCE WITH KAYEXALATE-->SEVERE HI K. CONT CPAP DOING Essential hypertension WELL CONTROLLED. SAME MEDS Secondary pulmonary hypertension WHO 2 AND POSSIBLY WHO 3 COMPONENT WELL. TREATING BOTH Vascular disorder of extremity SYMPTOMATIC RLE DZ WITH CLAUDICATION. 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 STABLE LAST Pure hypercholesterolemia TOLERATING ATORVA 20MG (PRIMARY PREVN)
[2017-11-28] MEDS: hydrALAZINE HCL 50 MG TABLET (FP) PO SCH (21:27)
[2017-11-28] MEDS: ATORVASTATIN CA 20 MG TABLET (FP) PO SCH (21:27)
[2017-11-28] MEDS: ALPRAZolam 0.25 MG TABLET PO SCH (21:27)
[2017-11-29] MEDS ORDERED: FUROSEMIDE 40 MG/4 ML INJECTABLE VIAL IVPUSH SCH (06:00)
[2017-11-29 08:40] LABS: CHLORIDE 108 mmol/L (98-107); POTASSIUM 5.2 mmol/L (3.5-5.1); SODIUM 137 mmol/L (136-145)
[2017-11-29 08:42] LABS: BASO % 0.3 % (0-2.0); EOS % 1.8 % (0-4.5); HEMATOCRIT 24.4 % (32.4-45.2); HEMOGLOBIN 7.7 GM/dL (10.7-15.3); LYMPH % 13.3 % (8-40); MCH 28.5 pg (25.7-33.7); MCHC 31.4 g/dl (32.0-36.0); MEAN PLT VOLUME 9.4 fl (7.5-11.1); NEUT % 74.6 % (42.8-82.8); PLATELET COUNT 235 K/MM3 (134-434); RBC 2.69 M/mm3 (3.60-5.2); RDW 16.8 % (11.6-15.6); WHITE BLOOD COUNT 8.5 K/mm3 (4.0-10.0)
[2017-11-29 08:49] LABS: ALBUMIN 2.7 g/dl (3.4-5.0); ALK PHOS 104 U/L (45-117); ANION GAP 8 (8-16); BILIRUBIN,TOTAL 0.3 mg/dL (0.2-1.0); BLOOD UREA NITROGEN 59 mg/dL (7-18); CALCIUM 7.8 mg/dL (8.5-10.1); CHOLESTEROL 126 mg/dL (50-200); CO2 21 mmol/L (21-32); CREATININE 2.6 mg/dL (0.55-1.02); GLUCOSE,RANDOM 239 mg/dL (74-106); HDL CHOLESTEROL 41 mg/dL (40-60); LDL CHOLESTEROL (ONLY SJRH) 70 mg/dL (5-100); MAGNESIUM 1.8 mg/dL (1.8-2.4); N-TERMINAL BNP 19106.27 pg/ml (5-125); SGOT/AST 11 U/L (15-37); SGPT/ALT 13 U/L (12-78); TOT PROT 6.7 g/dl (6.4-8.2); TRIGLYCERIDES 114 mg/dL (35-160)
--- NOTE | 2017-11-29 08:55 | CON.CARD ---
Consult - Past Medical History Cardio/Vascular: Yes: CHF, HTN, Hyperlipdemia, Pulmonary Hypertension Pulmonary: Yes: Asthma, Sleep Apnea (on BIPAP at night) Gastrointestinal: Yes: GI Bleed (see HPI), Other (had EGD and colono 12/31, ) Renal/: Yes: Renal Failure, Renal Inusuff, Other (hyperkalemia) ...LMP: 11/17/07 Endocrine: Yes: Diabetes Mellitus (uncontrolled) - Alcohol/Substance Use Hx Alcohol Use: No - Smoking History Smoking history: Current every day smoker Have you smoked in the past 12 months: Yes Aproximately how many cigarettes per day: 8 - Social History ADL: Independent History of Recent Travel: No Home Medications - Allergies Allergies/Adverse Reactions: Allergies Allergy/AdvReac Type Severity Reaction Status Date / Time No Known Allergies Allergy Verified 11/28/17 11:30 - Home Medications Home Medications: Ambulatory Orders Hydralazine HCl [Apresoline -] 50 mg PO BID #60 tablet 11/19/14 Folic Acid 1 mg PO DAILY 01/09/16 Atorvastatin Ca [Lipitor] 20 mg PO HS 11/25/16 Metoprolol Succinate [Toprol XL -] 50 mg PO DAILY #30 tablet 02/11/17 Alprazolam [Xanax] 0.5 mg PO HS 06/23/17 Amoxicillin/Potassium Clav [Augmentin 875-125 Tablet] 1 tab PO BID 11/28/17 Ciprofloxacin HCl/Dexameth [Ciprodex Otic Suspension] 4 drop BC BID 11/28/17 Fluticasone/Vilanterol [Breo Ellipta 100-25 Mcg INH] 1 each IH DAILY 11/28/17 Furosemide [Lasix -] 80 mg PO DAILY 11/28/17 Sodium Polystyrene Sulfon/Sorb [Sps] 30 gm RC ASDIR 11/28/17 Vital Signs: Vital Signs Temperature 98.8 F 11/29/17 08:14 Pulse Rate 66 11/29/17 08:14 Respiratory Rate 18 11/29/17 08:19 Blood Pressure 154/70 11/29/17 08:14 O2 Sat by Pulse Oximetry (%) 98 11/29/17 08:19 - Other Data Labs, Other Data: CBC, BMP 11/29/17 07:09 11/29/17 07:09 Troponin, BNP 11/28/17 11/28/17 11/28/17 12:45 14:11 21:50 Troponin I 0.02 0.03 B-Natriuretic Peptide 92567.70 H Troponin, BNP 11/28/17 11/28/17 11/28/17 12:45 14:11 21:50 Troponin I 0.02 0.03 B-Natriuretic Peptide 04396.70 H
--- NOTE | 2017-11-29 09:05 | PN ---
Progress Note, Physician Chief Complaint: sob History of Present Illness: sob at home for several days. no cp/pressure noted RLE swelling, not left. had rhinitis recently, no sore throat/fever/chills. no palpitations. s/p mastectomy, has port--no chemo (or XRT) yet + cigs - Current Medication List Current Medications: Active Medications Acetaminophen (Tylenol -) 650 mg PO Q4H PRN PRN Reason: PAIN Alprazolam (Xanax -) 0.5 mg PO HS [facility] Last Admin: 11/28/17 21:27 Dose: 0.5 mg Atorvastatin Calcium (Lipitor -) 20 mg PO HS [facility] Last Admin: 11/28/17 21:27 Dose: 20 mg Folic Acid (Folic Acid -) 1 mg PO DAILY [facility] Furosemide (Lasix Injection -) 80 mg IVPUSH DAILY [facility] Last Admin: 11/28/17 18:27 Dose: 80 mg Hydralazine HCl (Apresoline -) 50 mg PO BID [facility] Last Admin: 11/28/17 21:27 Dose: 50 mg Isosorbide Dinitrate (Isordil -) 10 mg PO BIDISORDIL [facility] Last Admin: 11/28/17 18:28 Dose: 10 mg Metoprolol Succinate (Toprol Xl -) 25 mg PO BID [facility] Last Admin: 11/28/17 21:27 Dose: 25 mg - Objective Vital Signs: Vital Signs Temperature 98.8 F 11/29/17 08:14 Pulse Rate 66 11/29/17 08:14 Respiratory Rate 18 11/29/17 08:19 Blood Pressure 154/70 11/29/17 08:14 O2 Sat by Pulse Oximetry (%) 98 11/29/17 08:19 Constitutional: Yes: No Distress, Calm Eyes: No: Sclera Icterus HENT: No: Nasal Congestion Cardiovascular: Yes: Regular Rate and Rhythm, S1, S2, Other (PMI non diplaced). No: JVD, Gallop, Murmur Respiratory: Yes: CTA Bilaterally. No: Accessory Muscle Use, Rales, Wheezes Gastrointestinal: Yes: Normal Bowel Sounds, Soft. No: Tenderness Musculoskeletal: Yes: Other (No kyphosis) Extremities: No: Cold, Cyanosis Edema: Yes (1+ R pretib, trace L) Integumentary: No: Jaundice Neurological: Yes: Alert, Oriented (x3) Psychiatric: No: Agitated Labs: CBC, BMP 11/29/17 07:09 11/29/17 07:09 Laboratory Tests 03/11/17 11/28/17 11/28/17 06:15 12:45 12:45 WBC Hgb 12.6 8.1 L D Plt Count Sodium Potassium Carbon Dioxide BUN 53 H Creatinine 2.3 H AST ALT Troponin I B-Natriuretic Peptide 27227.70 H Albumin 11/28/17 11/28/17 11/29/17 14:11 21:50 07:09 WBC 8.5 Hgb 7.7 L Plt Count 235 Sodium Potassium Carbon Dioxide BUN Creatinine AST ALT Troponin I 0.02 0.03 B-Natriuretic Peptide Albumin 11/29/17 07:09 WBC Hgb Plt Count Sodium 137 Potassium 5.2 H Carbon Dioxide 21 BUN 59 H Creatinine 2.6 H AST 11 L D ALT 13 Troponin I 0.03 B-Natriuretic Peptide Albumin 2.7 L - ....Imaging EKG: Other (tele: NSR) Assessment/Plan Echo 08/03: mod LVE, mod decr EF (global). nl RV. mild-mod MR, mod TR. RVSP 45. LHC 06/29: nl EDP; EF 40% (global); 50-60% OM1 (normal FFR); mild dz others MIBI 06/29 (pers): no STs; moder, partly rev defect AW c/w ischemia; mild LVE, mild-mod global LV hypo (40% EF); MILD TID MIBI 08/27 (pers): no ST change; TDS perfusion b/c of GI artifact and gating artifact; mild LV dilation and mild decr EFvisually (no TID) CXR (image reviewed): no effusions, no vasc redistribution. mild incr markings Breast cancer: -recently diagnosed s/p mastectomy. -chemo to start shortly (dr harvey) chronic systolic CHF: -nonisch CMP (prior cath for this w/u). LVEF MODERATELY REDUCED, STABLE VS PRIOR ECHO, ON HER 08/03 STUDY -01/31 CHF ADMIT: DIURESED DOWN TO 199 LBS, FROM 214 INITIALLY -EUVOLEMIC WHEN SAW ME 07/03, ON LASIX 80 QD THEN, CONFIRMS MED COMPLIANCE. -BNP 21K, PRIOR RANGE 7K-21K--NOTE RELIABILITY OF THIS FINDING UNCERTAIN WITH MARKED DECR GFR (INCL LYSSA COMPONENT) -WT 201, NOT SIGNIF UP VS PRIOR DRY WT. -CXR NO SIGNS CHF. BUN/CREAT BUMPED AFTER LASIX 80 IV. -NO JVD ON EXAM (PRESENT CONSISTENTLY WITH PRIOR CHF EXACERBATIONS). -IN LIGHT OF ALL OF THE ABOVE, SUSPECT HER INCR SOB IS NOT DUE TO CHF. MORE LIKELY SECONDARY TO ACUTE ANEMIA. -HOLD LASIX, TRANSFUSE PRBC'S (1 UNIT TODAY +/- IV LASIX IF SOB...CONSIDER 2ND UNIT TOMORROW IF HGB <9) -VENOUS DUPLEX LE TO R/O DVT IN LIGHT OF EDEMA. -OBSERVE CLOSELY FOR INCR SOB WITH TRANSFUSIONS--PRN LASIX 40 IVP. -IF SOB PERSISTS WITH AMBULATION ONCE HGB IS 9 OR ABOVE, THEN NEED TO LOOK FOR ALTERNATE ETIOLOGY -METOPR 25 BID, HYDRALAZINE AND NITRATES PER HOME REGIMEN -NO EVELINA/ARB, DUE TO RECURRENT SEVERE HYPERKALEMIA (DUE TO PT REPEATED NONCOMPLIANCE WITH REGULAR KAYEXALATE DOSING) LYSSA on CKD: -CREAT RANGES 1.8-2.2 ON LASIX (80 QD-BID) -bumped here s/p lasix dose x 1, suspect prerenal in setting of hypoperfusion from anemia -anemia correction as doing -rpt creat in am--if not improving, will have low threshold to start gentle IVF iron deficiency anemia, chronic: - sees dr white - prior scopes, referred for SB workup by him, ? cauterization done - anemic here, ? occult GIB vs related to breast malignancy or its tx - per dr [place], heme-onc, +/- GI as indicated Chronic ischemic heart disease: -NONOBSTR OM (INCL FFR NEGATIVE), NEVER HAD ANGINA. -TROP NEG X 3 HERE, NO ISCHEMIC ECG FINDINGS (NONSPECIFIC ST-T'S) -CONT HOME STATIN DOING -HOLD ASA GIVEN ACUTE ANEMIA, WHILE ASSESSMENT FOR OCCULT GIB UNDERWAY -IRON STUDIES, STOOL GUAIAC Essential hypertension: -BP MILDLY ELEVATED -SAME MEDS (METOPR, HYDRAL, NITRATES), OBSERVE TREND Chronic obstructive pulmonary disease -STABLE ON BB LONG TIME Obstructive sleep apnea -USES CPAP AT HOME; Chronic renal insufficiency -CREAT RANGES 1.8-2.2 ON LASIX (80 QD-BID). Pure hypercholesterolemia -ON ATORVA 20MG AT HOME DM: -per pmd Vascular disorder of extremity -SYMPTOMATIC RLE DZ WITH CLAUDICATION. 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
[2017-11-29] MEDS: FOLIC ACID 1 MG TABLET (FP) PO SCH (09:24)
[2017-11-29] MEDS: hydrALAZINE HCL 50 MG TABLET (FP) PO SCH ×2 (09:24→22:02)
[2017-11-29] MEDS: METOPROLOL SUCCINATE 25 MG TAB.SR.24H (FP) PO SCH ×2 (09:25→22:02)
[2017-11-29] MEDS: ISOSORBIDE DINITRATE 10 MG TABLET (FP) PO SCH ×2 (09:25→18:26)
[2017-11-29] MEDS ORDERED: METOPROLOL SUCCINATE 50 MG TAB.SR.24H (FP) PO SCH (10:00)
[2017-11-29] MEDS ORDERED: FUROSEMIDE 40 MG/4 ML INJECTABLE VIAL IVPUSH PRN (12:16)
--- NOTE | 2017-11-29 13:10 | HP ---
Admitting History and Physical - Primary Care Physician PCP: Volodymyr Coulter - Admission Chief Complaint: LEG EDEMA AND DYSPNEA History of Present Illness: The patient is a 62 year old female with a history of HTN, CHF, COPD, HLD, DM, CKD who presents for evaluation of lower extremity edema. The patient reports a 3 day history of worsening lower extremity edema. She noted some worsening SOB earlier today prompting her presentation to the ED for evaluation. She states that her symptoms feel similar to her prior chf exacerbations. She denies any fevers, chills, chest pain, nausea, vomiting, abdominal pain, or changes with urination or bowel movements. She notes worsening symptoms despite taking 80mg of furosimide as her daily medication. History Source: Patient - Past Medical History Cardiovascular: Yes: CHF, HTN, Hyperlipdemia, Pulmonary Hypertension Pulmonary: Yes: Asthma, Sleep Apnea (on BIPAP at night) Gastrointestinal: Yes: GI Bleed (see HPI), Other (had EGD and colono 12/31, ) Renal/: Yes: Renal Failure, Renal Inusuff, Other (hyperkalemia) ...LMP: 11/17/07 Heme/Onc: Yes: Anemia Endocrine: Yes: Diabetes Mellitus (uncontrolled) - Smoking History Smoking history: Current every day smoker Have you smoked in the past 12 months: Yes Aproximately how many cigarettes per day: 8 - Alcohol/Substance Use Hx Alcohol Use: No - Social History ADL: Independent History of Recent Travel: No Home Medications - Allergies Allergies/Adverse Reactions: Allergies Allergy/AdvReac Type Severity Reaction Status Date / Time No Known Allergies Allergy Verified 11/28/17 11:30 - Home Medications Home Medications: Ambulatory Orders Hydralazine HCl [Apresoline -] 50 mg PO BID #60 tablet 11/19/14 Folic Acid 1 mg PO DAILY 01/09/16 Atorvastatin Ca [Lipitor] 20 mg PO HS 11/25/16 Metoprolol Succinate [Toprol XL -] 50 mg PO DAILY #30 tablet 02/11/17 Alprazolam [Xanax] 0.5 mg PO HS 06/23/17 Amoxicillin/Potassium Clav [Augmentin 875-125 Tablet] 1 tab PO BID 11/28/17 Ciprofloxacin HCl/Dexameth [Ciprodex Otic Suspension] 4 drop BC BID 11/28/17 Fluticasone/Vilanterol [Breo Ellipta 100-25 Mcg INH] 1 each IH DAILY 11/28/17 Furosemide [Lasix -] 80 mg PO DAILY 11/28/17 Sodium Polystyrene Sulfon/Sorb [Sps] 30 gm RC ASDIR 11/28/17 Review of Systems - Review of Systems Constitutional: reports: Weakness Eyes: reports: No Symptoms HENT: reports: No Symptoms Neck: reports: No Symptoms Cardiovascular: reports: Shortness of Breath Respiratory: reports: Cough, SOB Gastrointestinal: reports: No Symptoms Genitourinary: reports: No Symptoms Musculoskeletal: reports: Muscle Weakness Integumentary: reports: No Symptoms Neurological: reports: No Symptoms Endocrine: reports: No Symptoms Hematology/Lymphatic: reports: No Symptoms Psychiatric: reports: No Symptoms Physical Examination Vital Signs: Vital Signs Temperature 98.8 F 11/29/17 08:14 Pulse Rate 66 11/29/17 08:14 Respiratory Rate 18 11/29/17 08:19 Blood Pressure 154/70 11/29/17 08:14 O2 Sat by Pulse Oximetry (%) 98 11/29/17 08:19 Constitutional: Yes: Mild Distress Eyes: Yes: WNL HENT: Yes: WNL Neck: Yes: WNL Cardiovascular: Yes: WNL Respiratory: Yes: On Nasal O2, Poor Air Entry Gastrointestinal: Yes: WNL Renal/: Yes: WNL Musculoskeletal: Yes: WNL Extremities: Yes: WNL Edema: Yes Peripheral Pulses WNL: Yes Integumentary: Yes: WNL Wound/Incision: Yes: Clean/Dry Neurological: Yes: WNL ...Motor Strength: WNL Psychiatric: Yes: WNL Labs: CBC, BMP 11/29/17 07:09 11/29/17 07:09 Problem List - Problems (1) CHF (congestive heart failure) Code(s): I50.9 - HEART FAILURE, UNSPECIFIED Qualifiers: Congestive heart failure type: unspecified Congestive heart failure chronicity: acute on chronic Qualified Code(s): I50.9 - Heart failure, unspecified (2) CKD (chronic kidney disease) Code(s): N18.9 - CHRONIC KIDNEY DISEASE, UNSPECIFIED Qualifiers: Chronic kidney disease stage: unspecified stage Qualified Code(s): N18.9 - Chronic kidney disease, unspecified (3) Symptomatic anemia Code(s): D64.9 - ANEMIA, UNSPECIFIED (4) Acute CHF (congestive heart failure) Code(s): I50.9 - HEART FAILURE, UNSPECIFIED (5) Acute exacerbation of chronic obstructive pulmonary disease (COPD) Code(s): J44.1 - CHRONIC OBSTRUCTIVE PULMONARY DISEASE W (ACUTE) EXACERBATION Assessment/Plan ANEMIA WORKUP HEME CONSULT STOOL FOR OCCULT BLOOD CARDIO EVAL ORALIA MCCULLOUGH 02 SUPPORT
--- NOTE | 2017-11-29 16:32 | EKG ---
Test Reason : Blood Pressure : / mmHG Vent. Rate : 066 BPM Atrial Rate : 066 BPM P-R Int : 156 ms QRS Dur : 096 ms QT Int : 486 ms P-R-T Axes : 058 016 -58 degrees QTc Int : 509 ms NORMAL SINUS RHYTHM ABNORMAL ECG WHEN COMPARED WITH ECG OF 28-NOV-2017 13:02, NONSPECIFIC T WAVE ABNORMALITY NO LONGER EVIDENT IN ANTERIOR LEADS Confirmed by YOVANI PURCELL MD ([id number]) on 11/29/2017 4:32:03 PM Referred By: Jagdeep FONTENOT Confirmed By:YOVANI PURCELL MD
--- NOTE | 2017-11-29 17:13 | EKG ---
Test Reason : Blood Pressure : / mmHG Vent. Rate : 068 BPM Atrial Rate : 068 BPM P-R Int : 150 ms QRS Dur : 092 ms QT Int : 456 ms P-R-T Axes : 053 004 -69 degrees QTc Int : 484 ms POOR DATA QUALITY, INTERPRETATION MAY BE ADVERSELY AFFECTED NORMAL SINUS RHYTHM ABNORMAL ECG WHEN COMPARED WITH ECG OF 06-MAR-2017 15:06, T WAVE INVERSION NOW EVIDENT IN INFERIOR LEADS NONSPECIFIC T WAVE ABNORMALITY NOW EVIDENT IN ANTERIOR LEADS T WAVE INVERSION NO LONGER EVIDENT IN LATERAL LEADS Confirmed by YOVANI PURCELL MD ([id number]) on 11/29/2017 5:13:11 PM Referred By: Confirmed By:YOVANI PURCELL MD
[2017-11-29] MEDS: ALPRAZolam 0.25 MG TABLET PO SCH (22:02)
[2017-11-29] MEDS: ATORVASTATIN CA 20 MG TABLET (FP) PO SCH (22:02)
[2017-11-30 06:36] LABS: SERUM IRON SATURATION 21 % (15-55); TOTAL IRON BINDING CAPACITY 183 ug/dL (250-450); UIBC 145 ug/dL (118-369)
[2017-11-30 07:31] LABS: BASO % 0.5 % (0-2.0); EOS % 2.1 % (0-4.5); HEMATOCRIT 27.3 % (32.4-45.2); HEMOGLOBIN 8.6 GM/dL (10.7-15.3); MCH 28.2 pg (25.7-33.7); MCHC 31.7 g/dl (32.0-36.0); MEAN CELL VOLUME 89.1 fl (80-96); MEAN PLT VOLUME 9.2 fl (7.5-11.1); NEUT % 75.4 % (42.8-82.8); PLATELET COUNT 226 K/MM3 (134-434); RBC 3.06 M/mm3 (3.60-5.2); RDW 17.4 % (11.6-15.6); WHITE BLOOD COUNT 7.8 K/mm3 (4.0-10.0)
[2017-11-30 07:59] LABS: ANION GAP 9 (8-16); BLOOD UREA NITROGEN 68 mg/dL (7-18); CALCIUM 8.3 mg/dL (8.5-10.1); CHLORIDE 108 mmol/L (98-107); CO2 21 mmol/L (21-32); CREATININE 2.6 mg/dL (0.55-1.02); GLUCOSE,RANDOM 190 mg/dL (74-106); POTASSIUM 5.5 mmol/L (3.5-5.1); SODIUM 138 mmol/L (136-145)
--- NOTE | 2017-11-30 09:00 | PN ---
Progress Note, Physician Chief Complaint: sob, anemia History of Present Illness: remains sob with light activity, no improvement no cp leg swelling mild no palpit + cigs - Current Medication List Current Medications: Active Medications Acetaminophen (Tylenol -) 650 mg PO Q4H PRN PRN Reason: PAIN Alprazolam (Xanax -) 0.5 mg PO HS [facility] Last Admin: 11/29/17 22:02 Dose: 0.5 mg Atorvastatin Calcium (Lipitor -) 20 mg PO HS [facility] Last Admin: 11/29/17 22:02 Dose: 20 mg Folic Acid (Folic Acid -) 1 mg PO DAILY [facility] Last Admin: 11/29/17 09:24 Dose: 1 mg Furosemide (Lasix Injection -) 40 mg IVPUSH ONCE PRN PRN Reason: Dyspnea Hydralazine HCl (Apresoline -) 50 mg PO BID [facility] Last Admin: 11/29/17 22:02 Dose: 50 mg Isosorbide Dinitrate (Isordil -) 10 mg PO BIDISORDIL [facility] Last Admin: 11/29/17 18:26 Dose: 10 mg Metoprolol Succinate (Toprol Xl -) 25 mg PO BID [facility] Last Admin: 11/29/17 22:02 Dose: 25 mg - Objective Vital Signs: Vital Signs Temperature 98.0 F 11/30/17 08:07 Pulse Rate 68 11/30/17 08:07 Respiratory Rate 20 11/30/17 08:07 Blood Pressure 139/82 11/30/17 08:07 O2 Sat by Pulse Oximetry (%) 98 11/29/17 21:00 Constitutional: Yes: No Distress, Calm Eyes: No: Sclera Icterus HENT: No: Nasal Congestion Cardiovascular: Yes: Regular Rate and Rhythm, S1, S2, Other (PMI non diplaced). No: JVD, Gallop, Murmur Respiratory: Yes: CTA Bilaterally. No: Accessory Muscle Use, Rales, Wheezes Gastrointestinal: Yes: Normal Bowel Sounds, Soft. No: Tenderness Musculoskeletal: Yes: Other (No kyphosis) Extremities: No: Cold Edema: Yes (tr-1+ pretibs) Integumentary: No: Jaundice Neurological: Yes: Alert, Oriented (x3) Psychiatric: No: Agitated Labs: CBC, BMP 11/30/17 05:05 11/30/17 05:05 - ....Imaging EKG: Other (tele: NSR) Assessment/Plan Echo 08/03: mod LVE, mod decr EF (global). nl RV. mild-mod MR, mod TR. RVSP 45. LHC 06/29: nl EDP; EF 40% (global); 50-60% OM1 (normal FFR); mild dz others MIBI 06/29 (pers): no STs; moder, partly rev defect AW c/w ischemia; mild LVE, mild-mod global LV hypo (40% EF); MILD TID MIBI 08/27 (pers): no ST change; TDS perfusion b/c of GI artifact and gating artifact; mild LV dilation and mild decr EFvisually (no TID) CXR (image reviewed): no effusions, no vasc redistribution. mild incr markings Breast cancer: -recently diagnosed s/p mastectomy. -chemo to start shortly (dr harvey) chronic systolic CHF: -nonisch CMP (prior cath for this w/u). LVEF MODERATELY REDUCED, STABLE VS PRIOR ECHO, ON HER 08/03 STUDY -01/31 CHF ADMIT: DIURESED DOWN TO 199 LBS, FROM 214 INITIALLY -EUVOLEMIC WHEN SAW ME 07/03, ON LASIX 80 QD THEN, CONFIRMS MED COMPLIANCE. -BNP 21K, PRIOR RANGE 7K-21K--NOTE RELIABILITY OF THIS FINDING UNCERTAIN WITH MARKED DECR GFR (INCL LYSSA COMPONENT) -WT 201, NOT SIGNIF UP VS PRIOR DRY WT. -CXR NO SIGNS CHF. BUN/CREAT BUMPED AFTER LASIX 80 IV. -NO JVD ON EXAM (PRESENT CONSISTENTLY WITH PRIOR CHF EXACERBATIONS). -IN LIGHT OF ALL OF THE ABOVE, SUSPECT HER INCR SOB IS NOT DUE TO CHF. MORE LIKELY SECONDARY TO ACUTE ANEMIA. -11/29: HELD LASIX, TRANSFUSE PRBC'S (1 UNIT TODAY +/- IV LASIX IF SOB...CONSIDER 2ND UNIT TOMORROW IF HGB <9) -VENOUS DUPLEX LE TO R/O DVT IN LIGHT OF EDEMA. -11/30: wt stable, creat same but BUN up slightly. hgb improved (8s) s/p PRBCs yest. SOB persists. will transfuse again today--IF SOB PERSISTS WITH ONCE HGB IS > 9 TOMORROW, THEN WILL HAVE TO REPEAT TRIAL IVP LASIX X 1 -METOPR 25 BID, HYDRALAZINE AND NITRATES PER HOME REGIMEN -NO EVELINA/ARB, DUE TO RECURRENT SEVERE HYPERKALEMIA (DUE TO PT REPEATED NONCOMPLIANCE WITH REGULAR KAYEXALATE DOSING) LYSSA on CKD: -CREAT RANGES 1.8-2.2 ON LASIX (80 QD-BID) -bumped here s/p lasix dose x 1, suspect prerenal in setting of hypoperfusion from anemia -anemia correction as doing -defer IVF while giving PRBCs, observe trend daily iron deficiency anemia, chronic: - sees dr white - prior scopes, referred for SB workup by him, ? cauterization done - anemic here, ? occult GIB vs related to breast malignancy or its tx - per dr vegas, heme-onc, +/- GI as indicated Chronic ischemic heart disease: -NONOBSTR OM (INCL FFR NEGATIVE), NEVER HAD ANGINA. -TROP NEG X 3 HERE, NO ISCHEMIC ECG FINDINGS (NONSPECIFIC ST-T'S) -CONT HOME STATIN DOING -HOLD ASA GIVEN ACUTE ANEMIA, WHILE ASSESSMENT FOR OCCULT GIB UNDERWAY -IRON STUDIES, STOOL GUAIAC Essential hypertension: -BP MILDLY ELEVATED -SAME MEDS (METOPR, HYDRAL, NITRATES), OBSERVE TREND Chronic obstructive pulmonary disease -STABLE ON BB LONG TIME Obstructive sleep apnea -USES CPAP AT HOME; Chronic renal insufficiency -CREAT RANGES 1.8-2.2 ON LASIX (80 QD-BID). Pure hypercholesterolemia -ON ATORVA 20MG AT HOME DM: -per pmd Vascular disorder of extremity -SYMPTOMATIC RLE DZ WITH CLAUDICATION. -[employer] DEFERRED BY PT DUE TO CREAT CONCERNS AND SX'S TOLERABLE TO HER; -SEC PREVN MEDS DOING
[2017-11-30] MEDS: FOLIC ACID 1 MG TABLET (FP) PO SCH (09:14)
[2017-11-30] MEDS: hydrALAZINE HCL 50 MG TABLET (FP) PO SCH ×2 (09:14→21:38)
[2017-11-30] MEDS: ISOSORBIDE DINITRATE 10 MG TABLET (FP) PO SCH ×2 (09:14→18:05)
[2017-11-30] MEDS: METOPROLOL SUCCINATE 25 MG TAB.SR.24H (FP) PO SCH ×2 (09:14→21:38)
--- NOTE | 2017-11-30 09:59 | PN ---
Progress Note, Physician Chief Complaint: AWAKE ALERT STILL SOB TRANSFUSED 1 UNIT PRBC YESTERDAY - Current Medication List Current Medications: Active Medications Acetaminophen (Tylenol -) 650 mg PO Q4H PRN PRN Reason: PAIN Alprazolam (Xanax -) 0.5 mg PO HS [facility] Last Admin: 11/29/17 22:02 Dose: 0.5 mg Atorvastatin Calcium (Lipitor -) 20 mg PO HS [facility] Last Admin: 11/29/17 22:02 Dose: 20 mg Folic Acid (Folic Acid -) 1 mg PO DAILY [facility] Last Admin: 11/30/17 09:14 Dose: 1 mg Furosemide (Lasix Injection -) 40 mg IVPUSH ONCE PRN PRN Reason: Dyspnea Hydralazine HCl (Apresoline -) 50 mg PO BID [facility] Last Admin: 11/30/17 09:14 Dose: 50 mg Isosorbide Dinitrate (Isordil -) 10 mg PO BIDISORDIL [facility] Last Admin: 11/30/17 09:14 Dose: 10 mg Metoprolol Succinate (Toprol Xl -) 25 mg PO BID [facility] Last Admin: 11/30/17 09:14 Dose: 25 mg - Objective Vital Signs: Vital Signs Temperature 98.0 F 11/30/17 08:07 Pulse Rate 68 11/30/17 08:07 Respiratory Rate 20 11/30/17 08:07 Blood Pressure 139/82 11/30/17 08:07 O2 Sat by Pulse Oximetry (%) 98 11/29/17 21:00 Constitutional: Yes: Mild Distress Eyes: Yes: WNL HENT: Yes: WNL Neck: Yes: WNL Cardiovascular: Yes: Pulse Irregular Respiratory: Yes: Rhonchi, SOB Gastrointestinal: Yes: WNL Genitourinary: Yes: WNL Musculoskeletal: Yes: WNL Extremities: Yes: WNL Edema: Yes Edema: LLE: Trace, RLE: Trace Peripheral Pulses WNL: Yes Integumentary: Yes: WNL Wound/Incision: Yes: Clean/Dry Neurological: Yes: WNL ...Motor Strength: WNL Psychiatric: Yes: WNL Labs: CBC, BMP 11/30/17 05:05 11/30/17 05:05 Problem List - Problems (1) CHF (congestive heart failure) Code(s): I50.9 - HEART FAILURE, UNSPECIFIED Qualifiers: Congestive heart failure type: unspecified Congestive heart failure chronicity: acute on chronic Qualified Code(s): I50.9 - Heart failure, unspecified (2) CKD (chronic kidney disease) Code(s): N18.9 - CHRONIC KIDNEY DISEASE, UNSPECIFIED Qualifiers: Chronic kidney disease stage: unspecified stage Qualified Code(s): N18.9 - Chronic kidney disease, unspecified (3) Symptomatic anemia Code(s): D64.9 - ANEMIA, UNSPECIFIED (4) Acute CHF (congestive heart failure) Code(s): I50.9 - HEART FAILURE, UNSPECIFIED (5) Acute exacerbation of chronic obstructive pulmonary disease (COPD) Code(s): J44.1 - CHRONIC OBSTRUCTIVE PULMONARY DISEASE W (ACUTE) EXACERBATION Assessment/Plan ANEMIA WORKUP, PRBC TRANSFUSION HEME CONSULT, O CHEMO TX WITH DR DAVID FLORES FOR OCCULT BLOOD CARDIO EVAL APPRECIATED, D/W DR FORMAN WILL NEED LASIX RENAL EVAL CRI LASIX BETWEEN TRANSFUSIONS OF PRBC 02 SUPPORT
[2017-11-30] MEDS ORDERED: SODIUM POLYSTYRENE SULFONATE 15 GM/60 ML BOTTLE PO ONE ×2 (10:00→14:00)
[2017-11-30 12:33] VITALS: BMI 32.6
--- NOTE | 2017-11-30 12:33 | CON.NEP ---
Consult Consult Specialty:: NEPHROLOGY Reason for Consultation:: hyperkalemia - History of Present Illness Chief Complaint: leg swelling History of Present Illness: The patient is a 62 year old female with a history of HTN, CHF, COPD, HLD, DM, CKD who presents for evaluation of lower extremity edema. The patient reports a 3 day history of worsening lower extremity edema. She noted some worsening SOB earlier today prompting her presentation to the ED for evaluation. She states that her symptoms feel similar to her prior chf exacerbations. She denies any fevers, chills, chest pain, nausea, vomiting, abdominal pain, or changes with urination or bowel movements. She notes worsening symptoms despite taking 80mg of furosimide as her daily medication. She was concerned because whene viola her foot sweels she becomes dyspneic. But its usully both. This time it was only the right - Past Medical History Cardio/Vascular: Yes: CHF, HTN, Hyperlipdemia, Pulmonary Hypertension Pulmonary: Yes: Asthma, Sleep Apnea (on BIPAP at night) Gastrointestinal: Yes: GI Bleed (see HPI), Other (had EGD and colono 12/31, ) Renal/: Yes: Renal Failure, Renal Inusuff, Other (hyperkalemia) ...LMP: 11/17/07 Endocrine: Yes: Diabetes Mellitus (uncontrolled) - Alcohol/Substance Use Hx Alcohol Use: No - Smoking History Smoking history: Current every day smoker Have you smoked in the past 12 months: Yes Aproximately how many cigarettes per day: 8 - Social History ADL: Independent History of Recent Travel: No Home Medications - Allergies Allergies/Adverse Reactions: Allergies Allergy/AdvReac Type Severity Reaction Status Date / Time No Known Allergies Allergy Verified 11/28/17 11:30 - Home Medications Home Medications: Ambulatory Orders Hydralazine HCl [Apresoline -] 50 mg PO BID #60 tablet 11/19/14 Folic Acid 1 mg PO DAILY 01/09/16 Atorvastatin Ca [Lipitor] 20 mg PO HS 11/25/16 Metoprolol Succinate [Toprol XL -] 50 mg PO DAILY #30 tablet 02/11/17 Alprazolam [Xanax] 0.5 mg PO HS 06/23/17 Amoxicillin/Potassium Clav [Augmentin 875-125 Tablet] 1 tab PO BID 11/28/17 Ciprofloxacin HCl/Dexameth [Ciprodex Otic Suspension] 4 drop BC BID 11/28/17 Fluticasone/Vilanterol [Breo Ellipta 100-25 Mcg INH] 1 each IH DAILY 11/28/17 Furosemide [Lasix -] 80 mg PO DAILY 11/28/17 Sodium Polystyrene Sulfon/Sorb [Sps] 30 gm RC ASDIR 11/28/17 Review of Systems - Review of Systems Constitutional: reports: No Symptoms Eyes: reports: No Symptoms HENT: reports: No Symptoms Neck: reports: No Symptoms Cardiovascular: reports: Edema, Shortness of Breath Respiratory: reports: No Symptoms Gastrointestinal: reports: No Symptoms Genitourinary: reports: No Symptoms Breasts: reports: No Symptoms Reported Neurological: reports: No Symptoms Endocrine: reports: No Symptoms Hematology/Lymphatic: reports: No Symptoms Nephrology Consult - Height Height: 5 ft 6 in - Weight Weight: 202 lb 3.2 oz - BMI Body Mass Index (BMI): 32.6 - Lab Results CBC,BMP: CBC, BMP 11/30/17 05:05 11/30/17 05:05 Anion Gap: Anion Gap Anion Gap 9 (8-16) 11/30/17 05:05 - Imaging Chest X-ray: Report Reviewed (rij catheter mild increased markings) - Physical Examination Vital Signs: Vital Signs Temperature 98.0 F 11/30/17 08:07 Pulse Rate 68 11/30/17 08:07 Respiratory Rate 20 11/30/17 08:07 Blood Pressure 139/82 11/30/17 08:07 O2 Sat by Pulse Oximetry (%) 98 11/29/17 21:00 Constitutional: Yes: Well Nourished, No Distress Eyes: Yes: Conjunctiva Clear HENT: Yes: Atraumatic, Normocephalic Neck: Yes: Supple, Trachea Midline Cardiovascular: Yes: Regular Rate and Rhythm Respiratory: Yes: Regular, CTA Bilaterally Gastrointestinal: Yes: Normal Bowel Sounds Renal/: Yes: WNL Extremities: Yes: WNL Edema: Yes Edema: LLE: Trace, RLE: 1+ Peripheral Pulses WNL: Yes Integumentary: Yes: WNL Wound/Incision: Yes: Clean/Dry Neurological: Yes: Alert, Oriented Psychiatric: Yes: Alert, Oriented Assessment/Plan IMPRESSION CKD HTN COPD 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
[2017-11-30] MEDS ORDERED: FUROSEMIDE 40 MG/4 ML INJECTABLE VIAL IVPUSH ONE (12:48)
[2017-11-30] MEDS: AMOX TR/POT CLAV 875MG/125MG TABLETS (FP) PO SCH (18:05)
[2017-11-30 19:36] LABS: ANION GAP 9 (8-16); BLOOD UREA NITROGEN 69 mg/dL (7-18); CALCIUM 7.8 mg/dL (8.5-10.1); CHLORIDE 110 mmol/L (98-107); CO2 20 mmol/L (21-32); CREATININE 2.6 mg/dL (0.55-1.02); GLUCOSE,RANDOM 286 mg/dL (74-106); POTASSIUM 5.3 mmol/L (3.5-5.1); SODIUM 139 mmol/L (136-145)
[2017-11-30] MEDS: ATORVASTATIN CA 20 MG TABLET (FP) PO SCH (21:38)
[2017-11-30] MEDS: ALPRAZolam 0.25 MG TABLET PO SCH (21:38)
--- NOTE | 2017-12-01 08:26 | PN ---
Progress Note, Physician History of Present Illness: FEELS BETTER NO CP - Current Medication List Current Medications: Active Medications Acetaminophen (Tylenol -) 650 mg PO Q4H PRN PRN Reason: PAIN Alprazolam (Xanax -) 0.5 mg PO HS [facility] Last Admin: 11/30/17 21:38 Dose: 0.5 mg Amoxicillin/Clavulanate Potassium (Augmentin - 875mg Tablet) 1 tab PO BID@0800, 1730 [facility] Last Admin: 11/30/17 18:05 Dose: 1 tab Atorvastatin Calcium (Lipitor -) 20 mg PO HS [facility] Last Admin: 11/30/17 21:38 Dose: 20 mg Folic Acid (Folic Acid -) 1 mg PO DAILY [facility] Last Admin: 11/30/17 09:14 Dose: 1 mg Furosemide (Lasix Injection -) 40 mg IVPUSH ONCE PRN PRN Reason: Dyspnea Hydralazine HCl (Apresoline -) 50 mg PO BID [facility] Last Admin: 11/30/17 21:38 Dose: 50 mg Isosorbide Dinitrate (Isordil -) 10 mg PO BIDISORDIL [facility] Last Admin: 11/30/17 18:05 Dose: 10 mg Metoprolol Succinate (Toprol Xl -) 25 mg PO BID [facility] Last Admin: 11/30/17 21:38 Dose: 25 mg - Objective Vital Signs: Vital Signs Temperature 98.2 F 12/01/17 05:42 Pulse Rate 68 12/01/17 05:42 Respiratory Rate 18 12/01/17 05:42 Blood Pressure 143/70 12/01/17 05:42 O2 Sat by Pulse Oximetry (%) 96 11/30/17 21:00 Cardiovascular: Yes: S1, S2 Respiratory: Yes: Regular, CTA Bilaterally Gastrointestinal: Yes: Normal Bowel Sounds, Soft Edema: LLE: Trace, RLE: 1+ Problem List - Problems (1) CHF (congestive heart failure) Assessment/Plan: IMPROVING MONITOR FOLLOW LABS Code(s): I50.9 - HEART FAILURE, UNSPECIFIED Qualifiers: Congestive heart failure type: unspecified Congestive heart failure chronicity: acute on chronic Qualified Code(s): I50.9 - Heart failure, unspecified (2) CKD (chronic kidney disease) Assessment/Plan: OBSERVE ON CURRENT MEDS Laboratory Tests 11/30/17 11/30/17 05:05 18:55 BUN 68 H 69 H Creatinine 2.6 H 2.6 H Code(s): N18.9 - CHRONIC KIDNEY DISEASE, UNSPECIFIED Qualifiers: Chronic kidney disease stage: unspecified stage Qualified Code(s): N18.9 - Chronic kidney disease, unspecified (3) Anemia Assessment/Plan: CHRONIC FOLLOW Laboratory Tests 11/28/17 11/29/17 11/30/17 12:45 07:09 05:05 Hgb 8.1 L D 7.7 L 8.6 L D 12/01/17 06:20 Hgb 9.4 L Code(s): D64.9 - ANEMIA, UNSPECIFIED Qualifiers: Anemia type: iron deficiency Iron deficiency anemia type: chronic blood loss Qualified Code(s): D50.0 - Iron deficiency anemia secondary to blood loss (chronic) (4) CAD (coronary artery disease) Assessment/Plan: NO CP CARDIO ON BOARD Code(s): I25.10 - ATHSCL HEART DISEASE OF [place] CORONARY ARTERY W/O ANG PCTRS Qualifiers: Coronary Disease-Associated Artery/Lesion type: elim ira coronary artery Associated angina: with other forms of angina pectoris
[2017-12-01 08:31] LABS: HEMATOCRIT 29.9 % (32.4-45.2); HEMOGLOBIN 9.4 GM/dL (10.7-15.3); MCH 28.3 pg (25.7-33.7); MCHC 31.5 g/dl (32.0-36.0); MEAN CELL VOLUME 89.6 fl (80-96); MEAN PLT VOLUME 9.5 fl (7.5-11.1); PLATELET COUNT 232 K/MM3 (134-434); RBC 3.34 M/mm3 (3.60-5.2); RDW 17.3 % (11.6-15.6); WHITE BLOOD COUNT 8.3 K/mm3 (4.0-10.0)
[2017-12-01 08:44] LABS: CHLORIDE 109 mmol/L (98-107); POTASSIUM 5.2 mmol/L (3.5-5.1); SODIUM 140 mmol/L (136-145)
[2017-12-01 09:07] LABS: ANION GAP 12 (8-16); BLOOD UREA NITROGEN 65 mg/dL (7-18); CALCIUM 8.4 mg/dL (8.5-10.1); CO2 19 mmol/L (21-32); CREATININE 2.5 mg/dL (0.55-1.02); GLUCOSE,RANDOM 202 mg/dL (74-106)
[2017-12-01] MEDS: hydrALAZINE HCL 50 MG TABLET (FP) PO SCH ×2 (09:24→21:22)
[2017-12-01] MEDS: AMOX TR/POT CLAV 875MG/125MG TABLETS (FP) PO SCH ×2 (09:24→16:33)
[2017-12-01] MEDS: ISOSORBIDE DINITRATE 10 MG TABLET (FP) PO SCH ×2 (09:24→17:46)
[2017-12-01] MEDS: METOPROLOL SUCCINATE 25 MG TAB.SR.24H (FP) PO SCH ×2 (09:24→21:22)
[2017-12-01] MEDS: FOLIC ACID 1 MG TABLET (FP) PO SCH (09:24)
--- NOTE | 2017-12-01 12:13 | PN ---
Progress Note, Physician Chief Complaint: sob History of Present Illness: sob RESOLVED as of today no orthopnea R leg swelling persists no wheeze, cp + cigs - Current Medication List Current Medications: Active Medications Acetaminophen (Tylenol -) 650 mg PO Q4H PRN PRN Reason: PAIN Alprazolam (Xanax -) 0.5 mg PO HS [facility] Last Admin: 11/30/17 21:38 Dose: 0.5 mg Amoxicillin/Clavulanate Potassium (Augmentin - 875mg Tablet) 1 tab PO BID@0800, 1730 [facility] Last Admin: 12/01/17 09:24 Dose: 1 tab Atorvastatin Calcium (Lipitor -) 20 mg PO HS [facility] Last Admin: 11/30/17 21:38 Dose: 20 mg Folic Acid (Folic Acid -) 1 mg PO DAILY [facility] Last Admin: 12/01/17 09:24 Dose: 1 mg Furosemide (Lasix Injection -) 40 mg IVPUSH ONCE PRN PRN Reason: Dyspnea Hydralazine HCl (Apresoline -) 50 mg PO BID [facility] Last Admin: 12/01/17 09:24 Dose: 50 mg Isosorbide Dinitrate (Isordil -) 10 mg PO BIDISORDIL [facility] Last Admin: 12/01/17 09:24 Dose: 10 mg Metoprolol Succinate (Toprol Xl -) 25 mg PO BID [facility] Last Admin: 12/01/17 09:24 Dose: 25 mg - Objective Vital Signs: Vital Signs Temperature 98.2 F 12/01/17 05:42 Pulse Rate 66 12/01/17 11:41 Respiratory Rate 18 12/01/17 05:42 Blood Pressure 143/70 12/01/17 05:42 O2 Sat by Pulse Oximetry (%) 97 12/01/17 11:41 Constitutional: Yes: No Distress, Calm Eyes: No: Sclera Icterus HENT: No: Nasal Congestion Cardiovascular: Yes: Regular Rate and Rhythm, JVD (4 cm), S1, S2, Other (PMI non diplaced). No: Gallop, Murmur Respiratory: Yes: CTA Bilaterally. No: Accessory Muscle Use, Rales, Wheezes Gastrointestinal: Yes: Normal Bowel Sounds, Soft. No: Tenderness Musculoskeletal: Yes: Other (No kyphosis) Extremities: No: Cold Edema: Yes (1-2+ R pretib) Integumentary: No: Jaundice Neurological: Yes: Alert, Oriented (x3) Psychiatric: No: Agitated Labs: CBC, BMP 12/01/17 06:20 12/01/17 06:20 - ....Imaging EKG: Other (tele: NSR) Assessment/Plan Echo 08/03: mod LVE, mod decr EF (global). nl RV. mild-mod MR, mod TR. RVSP 45. LHC 06/29: nl EDP; EF 40% (global); 50-60% OM1 (normal FFR); mild dz others MIBI 06/29 (pers): no STs; moder, partly rev defect AW c/w ischemia; mild LVE, mild-mod global LV hypo (40% EF); MILD TID MIBI 08/27 (pers): no ST change; TDS perfusion b/c of GI artifact and gating artifact; mild LV dilation and mild decr EFvisually (no TID) CXR (image reviewed): no effusions, no vasc redistribution. mild incr markings Breast cancer: -recently diagnosed s/p mastectomy. -chemo to start shortly (dr harvey) chronic systolic CHF: -nonisch CMP (prior cath for this w/u). LVEF MODERATELY REDUCED, STABLE VS PRIOR ECHO, ON HER 08/03 STUDY -01/31 CHF ADMIT: DIURESED DOWN TO 199 LBS, FROM 214 INITIALLY -EUVOLEMIC WHEN SAW ME 07/03, ON LASIX 80 QD THEN, CONFIRMS MED COMPLIANCE. -BNP 21K, PRIOR RANGE 7K-21K--NOTE RELIABILITY OF THIS FINDING UNCERTAIN WITH MARKED DECR GFR (INCL LYSSA COMPONENT) -WT 201, NOT SIGNIF UP VS PRIOR DRY WT. -CXR NO SIGNS CHF. BUN/CREAT BUMPED AFTER LASIX 80 IV. -NO JVD ON EXAM (PRESENT CONSISTENTLY WITH PRIOR CHF EXACERBATIONS). -IN LIGHT OF ALL OF THE ABOVE, SUSPECT HER INCR SOB IS NOT DUE TO CHF. MORE LIKELY SECONDARY TO ACUTE ANEMIA. -11/29: HELD LASIX, TRANSFUSE PRBC'S (1 UNIT TODAY +/- IV LASIX IF SOB...CONSIDER 2ND UNIT TOMORROW IF HGB <9) -VENOUS DUPLEX LE TO R/O DVT IN LIGHT OF EDEMA. -11/30: wt stable, creat same but BUN up slightly. hgb improved (8s) s/p PRBCs yest. SOB persists. will transfuse again today--IF SOB PERSISTS WITH ONCE HGB IS > 9 TOMORROW, THEN WILL HAVE TO REPEAT TRIAL IVP LASIX X 1 -12/01: wt unchanged. mild JVD present. bun/creat improving slightly. hgb now > 9. sob resolved with correction of anemia. -will give one dose iv lasix today, then resume po dose (80 qd) tomorrow if bun/ creat stable -METOPR 25 BID, HYDRALAZINE AND NITRATES (dose increased) -NO EVELINA/ARB, DUE TO RECURRENT SEVERE HYPERKALEMIA (DUE TO PT REPEATED NONCOMPLIANCE WITH REGULAR KAYEXALATE DOSING) LYSSA on CKD: -CREAT RANGES 1.8-2.2 ON LASIX (80 QD-BID) -bumped here s/p lasix dose x 1, suspect prerenal in setting of hypoperfusion from anemia -anemia correction as doing -defer IVF while giving PRBCs, observe trend daily iron deficiency anemia, chronic: - sees dr white - prior scopes, referred for SB workup by him, ? cauterization done - anemic here, ? occult GIB vs related to breast malignancy or its tx - per dr vegas, heme-onc, +/- GI as indicated Chronic ischemic heart disease: -NONOBSTR OM (INCL FFR NEGATIVE), NEVER HAD ANGINA. -TROP NEG X 3 HERE, NO ISCHEMIC ECG FINDINGS (NONSPECIFIC ST-T'S) -CONT HOME STATIN DOING -HOLD ASA GIVEN ACUTE ANEMIA, WHILE ASSESSMENT FOR OCCULT GIB UNDERWAY -IRON STUDIES, STOOL GUAIAC Essential hypertension: -BP MILDLY ELEVATED - isordil 10 bid increased here to 20 bid, bp improving -cont METOPR, HYDRAL Chronic obstructive pulmonary disease -STABLE ON BB LONG TIME Obstructive sleep apnea -USES CPAP AT HOME; Chronic renal insufficiency -CREAT RANGES 1.8-2.2 ON LASIX (80 QD-BID). Pure hypercholesterolemia -ON ATORVA 20MG AT HOME DM: -per pmd Vascular disorder of extremity -SYMPTOMATIC RLE DZ WITH CLAUDICATION. -[facility] [employer] [employer] DEFERRED BY PT DUE TO CREAT CONCERNS AND SX'S TOLERABLE TO HER; -SEC PREVN MEDS DOING d/c telemetry
--- NOTE | 2017-12-01 13:26 | PN ---
Progress Note, Physician History of Present Illness: Pt seen and examined at bedside. She feels that her lower extremity edema is starting to improve. - Current Medication List Current Medications: Active Medications Acetaminophen (Tylenol -) 650 mg PO Q4H PRN PRN Reason: PAIN Alprazolam (Xanax -) 0.5 mg PO HS [facility] Last Admin: 11/30/17 21:38 Dose: 0.5 mg Amoxicillin/Clavulanate Potassium (Augmentin - 875mg Tablet) 1 tab PO BID@0800, 1730 [facility] Last Admin: 12/01/17 09:24 Dose: 1 tab Atorvastatin Calcium (Lipitor -) 20 mg PO HS [facility] Last Admin: 11/30/17 21:38 Dose: 20 mg Folic Acid (Folic Acid -) 1 mg PO DAILY [facility] Last Admin: 12/01/17 09:24 Dose: 1 mg Furosemide (Lasix Injection -) 40 mg IVPUSH ONCE PRN PRN Reason: Dyspnea Hydralazine HCl (Apresoline -) 50 mg PO BID [facility] Last Admin: 12/01/17 09:24 Dose: 50 mg Isosorbide Dinitrate (Isordil -) 10 mg PO BIDISORDIL [facility] Last Admin: 12/01/17 09:24 Dose: 10 mg Metoprolol Succinate (Toprol Xl -) 25 mg PO BID [facility] Last Admin: 12/01/17 09:24 Dose: 25 mg - Objective Vital Signs: Vital Signs Temperature 98.2 F 12/01/17 05:42 Pulse Rate 66 12/01/17 11:41 Respiratory Rate 18 12/01/17 05:42 Blood Pressure 143/70 12/01/17 05:42 O2 Sat by Pulse Oximetry (%) 97 12/01/17 11:41 Constitutional: Yes: Calm Eyes: Yes: Conjunctiva Clear HENT: Yes: Atraumatic Neck: Yes: Supple Cardiovascular: Yes: S1, S2 Respiratory: Yes: CTA Bilaterally Gastrointestinal: Yes: Soft Genitourinary: Yes: WNL Musculoskeletal: Yes: WNL Edema: Yes Edema: LLE: 1+, RLE: 1+ Neurological: Yes: Oriented Psychiatric: Yes: Oriented Labs: CBC, BMP 12/01/17 06:20 12/01/17 06:20 Problem List - Problems (1) CHF (congestive heart failure) Code(s): I50.9 - HEART FAILURE, UNSPECIFIED Qualifiers: Congestive heart failure type: unspecified Congestive heart failure chronicity: acute on chronic Qualified Code(s): I50.9 - Heart failure, unspecified (2) CKD (chronic kidney disease) Code(s): N18.9 - CHRONIC KIDNEY DISEASE, UNSPECIFIED Qualifiers: Chronic kidney disease stage: unspecified stage Qualified Code(s): N18.9 - Chronic kidney disease, unspecified (3) Acute CHF (congestive heart failure) Code(s): I50.9 - HEART FAILURE, UNSPECIFIED (4) Acute hyperkalemia Code(s): E87.5 - HYPERKALEMIA (5) CAD (coronary artery disease) Code(s): I25.10 - ATHSCL HEART DISEASE OF [place] CORONARY ARTERY W/O ANG PCTRS Qualifiers: Coronary Disease-Associated Artery/Lesion type: [place] coronary artery Associated angina: with other forms of angina pectoris (6) CKD (chronic kidney disease) stage 3, GFR 30-59 ml/min Code(s): N18.3 - CHRONIC KIDNEY DISEASE, STAGE 3 (MODERATE) (7) COPD exacerbation Code(s): J44.1 - CHRONIC OBSTRUCTIVE PULMONARY DISEASE W (ACUTE) EXACERBATION Assessment/Plan Current Medications Generic Name Dose Route Start Last Admin Trade Name Freq PRN Reason Stop Dose Admin Acetaminophen 650 mg 11/28/17 15:20 Tylenol - PO Q4H PRN PAIN Alprazolam 0.5 mg 11/28/17 22:00 11/30/17 21:38 Xanax - PO 0.5 mg HS ALDO Administration Amoxicillin/Clavulanate Potassium 1 tab 11/30/17 17:30 12/01/17 09:24 Augmentin - 875mg Tablet PO 1 tab BID@0800,1730 ALDO Administration Atorvastatin Calcium 20 mg 11/28/17 22:00 11/30/17 21:38 Lipitor - PO 20 mg HS ALDO Administration Folic Acid 1 mg 11/29/17 10:00 12/01/17 09:24 Folic Acid - PO 1 mg DAILY ALDO Administration Furosemide 40 mg 11/29/17 12:16 Lasix Injection - IVPUSH ONCE PRN Dyspnea Hydralazine HCl 50 mg 11/28/17 22:00 12/01/17 09:24 Apresoline - PO 50 mg BID ALDO Administration Isosorbide Dinitrate 10 mg 11/28/17 18:15 12/01/17 09:24 Isordil - PO 10 mg BIDISORDIL ALDO Administration Metoprolol Succinate 25 mg 11/28/17 18:30 12/01/17 09:24 Toprol Xl - PO 25 mg BID ALDO Administration Impression 1. CKD 2. anemia 3. CHF 4. HTN 5. DM poorly controlled 6. hyperlipidemia 7. anxiety 8. uterine cancer 9. hx GI bleed 10. acute hyperkalemia Plan - cont with lasix - renal diet - avoid anneliese or arb - likely distal RTA - discussed diet at length with pt - repeat labs in am Dr Moore
[2017-12-01] MEDS ORDERED: FUROSEMIDE 40 MG/4 ML INJECTABLE VIAL IVPUSH ONE (15:27)
--- NOTE | 2017-12-01 16:02 | CONSULT ---
Consult - text type - Consultation Consultation Note: The patient is a 62 year old female with a history of HTN, CHF, COPD, HLD, DM, CKD who presents for evaluation of lower extremity edema. The patient reports a 3 day history of worsening lower extremity edema. She noted some worsening SOB prompting her presentation to the ED for evaluation. She states that her symptoms feel similar to her prior chf exacerbations. She denies any fevers, chills, chest pain, nausea, vomiting, abdominal pain, or changes with urination or bowel movements. She notes worsening symptoms despite taking 80mg of furosimide as her daily medication. She reports that she is being scheduled to start chemotherapy for recent rt. breast cancer - Past Medical History Cardio/Vascular: Yes: CHF, HTN, Hyperlipdemia, Pulmonary Hypertension Pulmonary: Yes: Asthma, Sleep Apnea (on BIPAP at night) Gastrointestinal: Yes: GI Bleed (see HPI), Other (had EGD and colono 12/31, ) Renal/: Yes: Renal Failure, Renal Inusuff, Other (hyperkalemia) Endocrine: Yes: Diabetes Mellitus (uncontrolled) - Smoking History Smoking history: Current every day smoker - Social History ADL: Independent Home Medications - Allergies Allergies/Adverse Reactions: Allergies Allergy/AdvReac Type Severity Reaction Status Date / Time No Known Allergies Allergy Verified 11/28/17 11:30 - Home Medications Home Medications: Ambulatory Orders Hydralazine HCl [Apresoline -] 50 mg PO BID #60 tablet 11/19/14 Folic Acid 1 mg PO DAILY 01/09/16 Atorvastatin Ca [Lipitor] 20 mg PO HS 11/25/16 Metoprolol Succinate [Toprol XL -] 50 mg PO DAILY #30 tablet 02/11/17 Alprazolam [Xanax] 0.5 mg PO HS 06/23/17 Amoxicillin/Potassium Clav [Augmentin 875-125 Tablet] 1 tab PO BID 11/28/17 Ciprofloxacin HCl/Dexameth [Ciprodex Otic Suspension] 4 drop BC BID 11/28/17 Fluticasone/Vilanterol [Breo Ellipta 100-25 Mcg INH] 1 each IH DAILY 11/28/17 Furosemide [Lasix -] 80 mg PO DAILY 11/28/17 Sodium Polystyrene Sulfon/Sorb [Sps] 30 gm RC ASDIR 11/28/17 Active Medications Generic Name Dose Route Start Last Admin Trade Name Freq PRN Reason Stop Dose Admin Acetaminophen 650 mg 11/28/17 15:20 Tylenol - PO Q4H PRN PAIN Alprazolam 0.5 mg 11/28/17 22:00 11/30/17 21:38 Xanax - PO 0.5 mg HS ALDO Administration Amoxicillin/Clavulanate Potassium 1 tab 11/30/17 17:30 12/01/17 09:24 Augmentin - 875mg Tablet PO 1 tab BID@0800,1730 ALDO Administration Atorvastatin Calcium 20 mg 11/28/17 22:00 11/30/17 21:38 Lipitor - PO 20 mg HS ALDO Administration Folic Acid 1 mg 11/29/17 10:00 12/01/17 09:24 Folic Acid - PO 1 mg DAILY ALDO Administration Hydralazine HCl 50 mg 11/28/17 22:00 12/01/17 09:24 Apresoline - PO 50 mg BID ALDO Administration Isosorbide Dinitrate 20 mg 12/01/17 15:28 Isordil - PO BIDISORDIL ALDO Metoprolol Succinate 25 mg 11/28/17 18:30 12/01/17 09:24 Toprol Xl - PO 25 mg BID ALDO Administration - Height Height: 5 ft 6 in - Weight Weight: 202 lb 3.2 oz - BMI Body Mass Index (BMI): 32.6 - Lab Results CBC,BMP: Lab Results WBC 8.3 K/mm3 (4.0-10.0) 12/01/17 06:20 RBC 3.34 M/mm3 (3.60-5.2) L 12/01/17 06:20 Hgb 9.4 GM/dL (10.7-15.3) L 12/01/17 06:20 Hct 29.9 % (32.4-45.2) L 12/01/17 06:20 MCV 89.6 fl (80-96) 12/01/17 06:20 MCHC 31.5 g/dl (32.0-36.0) L 12/01/17 06:20 RDW 17.3 % (11.6-15.6) H 12/01/17 06:20 Plt Count 232 K/MM3 (134-434) 12/01/17 06:20 Sodium 140 mmol/L (136-145) 12/01/17 06:20 Potassium 5.2 mmol/L (3.5-5.1) H 12/01/17 06:20 Chloride 109 mmol/L (98-107) H 12/01/17 06:20 Carbon Dioxide 19 mmol/L (21-32) L 12/01/17 06:20 Anion Gap 12 (8-16) 12/01/17 06:20 BUN 65 mg/dL (7-18) H 12/01/17 06:20 Creatinine 2.5 mg/dL (0.55-1.02) H 12/01/17 06:20 Random Glucose 202 mg/dL (74-106) H 12/01/17 06:20 Calcium 8.4 mg/dL (8.5-10.1) L 12/01/17 06:20 Blood Type B POSITIVE 11/29/17 12:45 Antibody Screen Negative 11/29/17 12:45 Last Vital Signs Temp Pulse Resp BP Pulse Ox 97.4 F L 65 20 143/64 97 12/01/17 14:25 12/01/17 14:25 12/01/17 14:25 12/01/17 14:25 12/01/17 11:41 Constitutional: Yes: Well Nourished, No Distress Eyes: Yes: Conjunctiva Clear HENT: Yes: Atraumatic, Normocephalic Neck: Yes: Supple, Trachea Midline Cardiovascular: Yes: Regular Rate and Rhythm Respiratory: Yes: Regular, CTA Bilaterally Gastrointestinal: Yes: Normal Bowel Sounds Renal/: Yes: WNL Extremities: Yes: WNL Edema: Yes Edema: LLE: Trace, RLE: 1+ Peripheral Pulses WNL: Yes Integumentary: Yes: WNL Neurological: Yes: Alert, Oriented Assessment/Plan CKD HTN COPD CHF 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 Beth regarding plans for adjuvant chemotherapy
[2017-12-01] MEDS: ACETAMINOPHEN 325 MG TABLET (FP) PO PRN ×2 (18:18→22:27)
[2017-12-01] MEDS: ATORVASTATIN CA 20 MG TABLET (FP) PO SCH (21:22)
[2017-12-01] MEDS: ALPRAZolam 0.25 MG TABLET PO SCH (21:22)
[2017-12-02] MEDS: ACETAMINOPHEN 325 MG TABLET (FP) PO PRN ×2 (02:54→12:27)
[2017-12-02 07:21] LABS: BASO % 0.5 % (0-2.0); EOS % 3.5 % (0-4.5); HEMATOCRIT 29.5 % (32.4-45.2); HEMOGLOBIN 9.5 GM/dL (10.7-15.3); LYMPH % 12.5 % (8-40); MCH 28.9 pg (25.7-33.7); MCHC 32.3 g/dl (32.0-36.0); MEAN CELL VOLUME 89.5 fl (80-96); MEAN PLT VOLUME 9.1 fl (7.5-11.1); MONO % 10.4 % (3.8-10.2); NEUT % 73.1 % (42.8-82.8); PLATELET COUNT 219 K/MM3 (134-434); RDW 17.2 % (11.6-15.6); WHITE BLOOD COUNT 7.3 K/mm3 (4.0-10.0)
[2017-12-02 07:40] LABS: ANION GAP 11 (8-16); BLOOD UREA NITROGEN 70 mg/dL (7-18); CALCIUM 7.8 mg/dL (8.5-10.1); CHLORIDE 106 mmol/L (98-107); CO2 19 mmol/L (21-32); CREATININE 2.4 mg/dL (0.55-1.02); GLUCOSE,RANDOM 193 mg/dL (74-106); SODIUM 136 mmol/L (136-145)
--- NOTE | 2017-12-02 07:48 | DS ---
Physical Examination Vital Signs: Vital Signs Temperature 97.9 F 12/02/17 05:50 Pulse Rate 63 12/02/17 05:50 Respiratory Rate 20 12/02/17 05:50 Blood Pressure 139/69 12/02/17 05:50 O2 Sat by Pulse Oximetry (%) 99 12/01/17 21:00 Cardiovascular: Yes: Regular Rate and Rhythm Respiratory: Yes: Regular, CTA Bilaterally Gastrointestinal: Yes: Normal Bowel Sounds, Soft. No: Tenderness Labs: CBC, BMP 12/02/17 06:17 12/02/17 06:17 Discharge Summary Reason For Visit: CHF; ANEMIA; CHRONIC KIDNEY DISEASE STAGE 3 Current Active Problems CHF (congestive heart failure) (Acute) CKD (chronic kidney disease) (Acute) Symptomatic anemia (Acute) Hospital Course: The patient is a 62 year old female with a history of HTN, CHF, COPD, HLD, DM, CKD who presents for evaluation of lower extremity edema. The patient reports a 3 day history of worsening lower extremity edema. She noted some worsening SOB earlier today prompting her presentation to the ED for evaluation. She states that her symptoms feel similar to her prior chf exacerbations. She denies any fevers, chills, chest pain, nausea, vomiting, abdominal pain, or changes with urination or bowel movements. She notes worsening symptoms despite taking 80mg of furosimide as her daily medication. History Source: Patient - Past Medical History Cardiovascular: Yes: CHF, HTN, Hyperlipdemia, Pulmonary Hypertension Pulmonary: Yes: Asthma, Sleep Apnea (on BIPAP at night) Gastrointestinal: Yes: GI Bleed (see HPI), Other (had EGD and colono 12/31, ) Renal/: Yes: Renal Failure, Renal Inusuff, Other (hyperkalemia) ...LMP: 11/17/07 Heme/Onc: Yes: Anemia Endocrine: Yes: Diabetes Mellitus (uncontrolled) - Smoking History Smoking history: Current every day smoker Have you smoked in the past 12 months: Yes Aproximately how many cigarettes per day: 8 - Problems (1) CHF (congestive heart failure) Assessment/Plan: IMPROVING MONITOR ON LASIX--PO FOLLOW LABS Code(s): I50.9 - HEART FAILURE, UNSPECIFIED Qualifiers: Congestive heart failure type: unspecified Congestive heart failure chronicity: acute on chronic Qualified Code(s): I50.9 - Heart failure, unspecified (2) CKD (chronic kidney disease) Assessment/Plan: OBSERVE ON CURRENT MEDS Laboratory Tests 11/30/17 11/30/17 05:05 18:55 BUN 68 H 69 H Creatinine 2.6 H 2.6 H Code(s): N18.9 - CHRONIC KIDNEY DISEASE, UNSPECIFIED Qualifiers: Chronic kidney disease stage: unspecified stage Qualified Code(s): N18.9 - Chronic kidney disease, unspecified (3) Anemia Assessment/Plan: CHRONIC S/P PRBC FOLLOW LABS GI CONSULT Laboratory Tests 11/28/17 11/29/17 11/30/17 12:45 07:09 05:05 Hgb 8.1 L D 7.7 L 8.6 L D 12/01/17 06:20 Hgb 9.4 L Code(s): D64.9 - ANEMIA, UNSPECIFIED Qualifiers: Anemia type: iron deficiency Iron deficiency anemia type: chronic blood loss Qualified Code(s): D50.0 - Iron deficiency anemia secondary to blood loss (chronic) (4) CAD (coronary artery disease) Assessment/Plan: NO CP CARDIO ON BOARD Code(s): I25.10 - ATHSCL HEART DISEASE OF [place] CORONARY ARTERY W/O ANG PCTRS Qualifiers: Coronary Disease-Associated Artery/Lesion type: [place] coronary artery Associated angina: with other forms of angina pectoris Condition: Improved - Instructions Referrals: Anyi Mcgrath MD [Primary Care Provider] - 2 Weeks Disposition: HOME - Home Medications Comprehensive Discharge Medication List: Ambulatory Orders Hydralazine HCl [Apresoline -] 50 mg PO BID #60 tablet 11/19/14 Folic Acid 1 mg PO DAILY 01/09/16 Atorvastatin Ca [Lipitor] 20 mg PO HS 11/25/16 Metoprolol Succinate [Toprol XL -] 50 mg PO DAILY #30 tablet 02/11/17 Alprazolam [Xanax] 0.5 mg PO HS 06/23/17 Amoxicillin/Potassium Clav [Augmentin 875-125 Tablet] 1 tab PO BID 11/28/17 Ciprofloxacin HCl/Dexameth [Ciprodex Otic Suspension] 4 drop BC BID 11/28/17 Fluticasone/Vilanterol [Breo Ellipta 100-25 Mcg INH] 1 each IH DAILY 11/28/17 Furosemide [Lasix -] 80 mg PO DAILY 11/28/17 Sodium Polystyrene Sulfon/Sorb [Sps 30 gm/120 ml Enema] 30 gm RC ASDIR 11/28/17
[2017-12-02] MEDS: AMOX TR/POT CLAV 875MG/125MG TABLETS (FP) PO SCH ×2 (08:16→18:12)
[2017-12-02] MEDS: FOLIC ACID 1 MG TABLET (FP) PO SCH (09:57)
[2017-12-02] MEDS: FUROSEMIDE 40 MG TABLET (FP) PO SCH (09:57)
[2017-12-02] MEDS: ISOSORBIDE DINITRATE 10 MG TABLET (FP) PO SCH ×2 (09:57→18:13)
[2017-12-02] MEDS: hydrALAZINE HCL 50 MG TABLET (FP) PO SCH ×2 (09:57→21:48)
[2017-12-02] MEDS: METOPROLOL SUCCINATE 25 MG TAB.SR.24H (FP) PO SCH ×2 (09:57→21:48)
[2017-12-02 10:45] LABS: ARTERIAL BLD GAS O2 SATURATION 94.7 % (90-98.9); ARTERIAL BLOOD GAS PCO2 37.8 mmHg (35-45); ARTERIAL BLOOD GAS PO2 73.1 mmHg (80-100); ARTERIAL BLOOD GAS pH 7.32 (7.35-7.45)
[2017-12-02 10:47] LABS: ALLENS TEST POSITIVE
[2017-12-02 10:50] LABS: HEMATOCRIT 29.5 % (32.4-45.2); HEMOGLOBIN 9.3 GM/dL (10.7-15.3); MCH 28.4 pg (25.7-33.7); MCHC 31.5 g/dl (32.0-36.0); MEAN CELL VOLUME 90.2 fl (80-96); MEAN PLT VOLUME 9.1 fl (7.5-11.1); PLATELET COUNT 228 K/MM3 (134-434); RBC 3.27 M/mm3 (3.60-5.2); RDW 17.2 % (11.6-15.6); WHITE BLOOD COUNT 7.4 K/mm3 (4.0-10.0)
--- NOTE | 2017-12-02 10:57 | EKG ---
Test Reason : Blood Pressure : / mmHG Vent. Rate : 063 BPM Atrial Rate : 063 BPM P-R Int : 154 ms QRS Dur : 098 ms QT Int : 512 ms P-R-T Axes : 054 015 -39 degrees QTc Int : 523 ms NORMAL SINUS RHYTHM T WAVE ABNORMALITY, CONSIDER INFERIOR ISCHEMIA PROLONGED QT ABNORMAL ECG WHEN COMPARED WITH ECG OF 29-NOV-2017 09:42, NO SIGNIFICANT CHANGE WAS FOUND Confirmed by MD Adama, Mitchell ([id number]) on 12/02/2017 10:57:22 AM Referred By: KELECHI GUTIERREZ Confirmed By:Mitchell Galan MD
--- NOTE | 2017-12-02 12:01 | PN ---
Progress Note (short form) - Note Progress Note: Chief Complaint: sob History of Present Illness: episode of dizziness/weakness this morning. qt noted to be prolonged on ekg. Weight increased 5 lbs today(rechecked on standing scale). Denies sob. LE edema persists. isordil increased from 10 mg to 20 mg bid last night. Transitioned from lasix 40 mg IV daily to 80 mg PO daily today. no orthopnea + cigs Current Medications Acetaminophen (Tylenol -) 650 mg PO Q4H PRN PRN Reason: PAIN Last Admin: 12/02/17 02:54 Dose: 650 mg Alprazolam (Xanax -) 0.5 mg PO HS [facility] Last Admin: 12/01/17 21:22 Dose: 0.5 mg Amoxicillin/Clavulanate Potassium (Augmentin - 875mg Tablet) 1 tab PO BID@0800, 1730 [facility] Last Admin: 12/02/17 08:16 Dose: 1 tab Atorvastatin Calcium (Lipitor -) 20 mg PO HS [facility] Last Admin: 12/01/17 21:22 Dose: 20 mg Folic Acid (Folic Acid -) 1 mg PO DAILY [facility] Last Admin: 12/02/17 09:57 Dose: 1 mg Furosemide (Lasix -) 80 mg PO DAILY [facility] Last Admin: 12/02/17 09:57 Dose: 80 mg Hydralazine HCl (Apresoline -) 50 mg PO BID [facility] Last Admin: 12/02/17 09:57 Dose: 50 mg Isosorbide Dinitrate (Isordil -) 20 mg PO BIDISORDIL [facility] Last Admin: 12/02/17 09:57 Dose: 20 mg Metoprolol Succinate (Toprol Xl -) 25 mg PO BID [facility] Last Admin: 12/02/17 09:57 Dose: 25 mg - Objective Vital Signs: Vital Signs - 24 hr 12/01/17 12/01/17 12/01/17 14:25 17:00 21:00 Temperature 97.4 F L 97.3 F L Pulse Rate 65 67 Respiratory 20 20 Rate Blood Pressure 143/64 150/66 O2 Sat by Pulse 99 Oximetry (%) 12/01/17 12/02/17 12/02/17 21:21 02:16 05:50 Temperature 97.7 F 97.4 F L 97.9 F Pulse Rate 70 73 63 Respiratory 20 20 20 Rate Blood Pressure 175/81 159/81 139/69 O2 Sat by Pulse Oximetry (%) 12/02/17 08:19 Temperature Pulse Rate 64 Respiratory Rate Blood Pressure O2 Sat by Pulse 98 Oximetry (%) Intake & Output 11/30/17 12/01/17 12/02/17 12/03/17 07:59 07:59 07:59 07:59 Intake Total 1620 1810 1550 Balance 1620 1810 1550 Weight 202 lb 3.2 oz 202 lb 207 lb Constitutional: Yes: No Distress, Calm Eyes: No: Sclera Icterus HENT: No: Nasal Congestion Cardiovascular: Yes: Regular Rate and Rhythm, JVD (4 cm), S1, S2, Other (PMI non diplaced). No: Gallop, Murmur Respiratory: Yes: diminished air mov't, trace wheezes. No: Accessory Muscle Use , Rales, Wheezes Gastrointestinal: Yes: Normal Bowel Sounds, Soft. No: Tenderness Musculoskeletal: Yes: Other (No kyphosis) Extremities: No: Cold Edema: Yes (1-2+ R pretib) Integumentary: No: Jaundice Neurological: Yes: Alert, Oriented (x3) Psychiatric: No: Agitated Labs: CBC, BMP 12/02/17 10:30 12/02/17 06:17 - ....Imaging EKG: Other (off tele: NSR) Assessment/Plan Echo 08/03: mod LVE, mod decr EF (global). nl RV. mild-mod MR, mod TR. RVSP 45. LHC 06/29: nl EDP; EF 40% (global); 50-60% OM1 (normal FFR); mild dz others MIBI 06/29 (pers): no STs; moder, partly rev defect AW c/w ischemia; mild LVE, mild-mod global LV hypo (40% EF); MILD TID MIBI 08/27 (pers): no ST change; TDS perfusion b/c of GI artifact and gating artifact; mild LV dilation and mild decr EFvisually (no TID) CXR (image reviewed): no effusions, no vasc redistribution. mild incr markings Breast cancer: -recently diagnosed s/p mastectomy. -chemo to start shortly (dr harvey) prolonged qt - Prolonged on ekg today during episode of weakness/lethargy. Monitor lytes closely. Currently , only qt prolonging med is lasix --> Repeat ekg tomorrow am. If prolonged qt persists, consider need to resume tele monitoring. chronic systolic CHF: -nonisch CMP (prior cath for this w/u). LVEF MODERATELY REDUCED, STABLE VS PRIOR ECHO, ON HER 08/03 STUDY -01/31 CHF ADMIT: DIURESED DOWN TO 199 LBS, FROM 214 INITIALLY -EUVOLEMIC WHEN SAW ME 07/03, ON LASIX 80 QD THEN, CONFIRMS MED COMPLIANCE. -BNP 21K, PRIOR RANGE 7K-21K--NOTE RELIABILITY OF THIS FINDING UNCERTAIN WITH MARKED DECR GFR (INCL LYSSA COMPONENT) -WT 201, NOT SIGNIF UP VS PRIOR DRY WT. -CXR NO SIGNS CHF. BUN/CREAT BUMPED AFTER LASIX 80 IV. -NO JVD ON EXAM (PRESENT CONSISTENTLY WITH PRIOR CHF EXACERBATIONS). -IN LIGHT OF ALL OF THE ABOVE, SUSPECT HER INCR SOB IS NOT DUE TO CHF. MORE LIKELY SECONDARY TO ACUTE ANEMIA. -11/29: HELD LASIX, TRANSFUSE PRBC'S (1 UNIT TODAY +/- IV LASIX IF SOB...CONSIDER 2ND UNIT TOMORROW IF HGB <9) -VENOUS DUPLEX LE TO R/O DVT IN LIGHT OF EDEMA. -11/30: wt stable, creat same but BUN up slightly. hgb improved (8s) s/p PRBCs yest. SOB persists. will transfuse again today--IF SOB PERSISTS WITH ONCE HGB IS > 9 TOMORROW, THEN WILL HAVE TO REPEAT TRIAL IVP LASIX X 1 -12/01: wt unchanged. mild JVD present. bun/creat improving slightly. hgb now > 9. sob resolved with correction of anemia. will give one dose iv lasix today, then resume po dose (80 qd) tomorrow if bun/creat stable - 12/02: episode of lethargy this am. New wheezes on exam and weight increased by 5 lbs. Transitioned to po lasix today --> trial of extra lasix 40 mg IV x1. reassess ability to transition to po lasix tomorrow. repeat cxr tomorrow morning. -METOPR 25 BID, HYDRALAZINE AND NITRATES (dose increased 12/01) -NO EVELINA/ARB, DUE TO RECURRENT SEVERE HYPERKALEMIA (DUE TO PT REPEATED NONCOMPLIANCE WITH REGULAR KAYEXALATE DOSING) LYSSA on CKD with hyperkalemia: -CREAT RANGES 1.8-2.2 ON LASIX (80 QD-BID) -bumped here s/p lasix 80mg dose x 1 on admit, suspect prerenal in setting of hypoperfusion from anemia. Then improved on lasix 40 mg daily given 11/30 and . -anemia correction as doing iron deficiency anemia, chronic: - sees dr white - prior scopes, referred for SB workup by him, ? cauterization done - anemic here, ? occult GIB vs related to breast malignancy or its tx - per dr [place], heme-onc, +/- GI as indicated Chronic ischemic heart disease: -NONOBSTR OM (INCL FFR NEGATIVE), NEVER HAD ANGINA. -TROP NEG X 3 HERE, NO ISCHEMIC ECG FINDINGS (NONSPECIFIC ST-T'S) -CONT HOME STATIN DOING -HOLD ASA GIVEN ACUTE ANEMIA, WHILE ASSESSMENT FOR OCCULT GIB UNDERWAY -IRON STUDIES, STOOL GUAIAC Essential hypertension: -BP MILDLY ELEVATED - isordil 10 bid increased here to 20 bid, bp improving -cont METOPR, HYDRAL Chronic obstructive pulmonary disease -STABLE ON BB LONG TIME Obstructive sleep apnea -USES CPAP AT HOME; Chronic renal insufficiency -CREAT RANGES 1.8-2.2 ON LASIX (80 QD-BID). Pure hypercholesterolemia -ON ATORVA 20MG AT HOME DM: -per pmd Vascular disorder of extremity -SYMPTOMATIC RLE DZ WITH CLAUDICATION. 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
--- NOTE | 2017-12-02 14:14 | PN ---
Progress Note, Physician History of Present Illness: Pt seen and examined at bedside. She is awake and alert. She denies shortness of breath. - Current Medication List Current Medications: Active Medications Acetaminophen (Tylenol -) 650 mg PO Q4H PRN PRN Reason: PAIN Last Admin: 12/02/17 12:27 Dose: 650 mg Alprazolam (Xanax -) 0.5 mg PO HS [facility] Last Admin: 12/01/17 21:22 Dose: 0.5 mg Amoxicillin/Clavulanate Potassium (Augmentin - 875mg Tablet) 1 tab PO BID@0800, 1730 [facility] Last Admin: 12/02/17 08:16 Dose: 1 tab Atorvastatin Calcium (Lipitor -) 20 mg PO HS [facility] Last Admin: 12/01/17 21:22 Dose: 20 mg Folic Acid (Folic Acid -) 1 mg PO DAILY [facility] Last Admin: 12/02/17 09:57 Dose: 1 mg Furosemide (Lasix -) 80 mg PO DAILY [facility] Last Admin: 12/02/17 09:57 Dose: 80 mg Hydralazine HCl (Apresoline -) 50 mg PO BID [facility] Last Admin: 12/02/17 09:57 Dose: 50 mg Isosorbide Dinitrate (Isordil -) 20 mg PO BIDISORDIL [facility] Last Admin: 12/02/17 09:57 Dose: 20 mg Metoprolol Succinate (Toprol Xl -) 25 mg PO BID [facility] Last Admin: 12/02/17 09:57 Dose: 25 mg - Objective Vital Signs: Vital Signs Temperature 97.2 F L 12/02/17 13:56 Pulse Rate 64 12/02/17 13:56 Respiratory Rate 20 12/02/17 13:56 Blood Pressure 138/98 12/02/17 13:56 O2 Sat by Pulse Oximetry (%) 98 12/02/17 08:19 Constitutional: Yes: Calm Eyes: Yes: Conjunctiva Clear HENT: Yes: Atraumatic Neck: Yes: Supple Cardiovascular: Yes: S1, S2 Respiratory: Yes: CTA Bilaterally Gastrointestinal: Yes: Soft Genitourinary: Yes: WNL Musculoskeletal: Yes: WNL Edema: Yes Edema: LLE: 1+, RLE: 1+ Neurological: Yes: Oriented Psychiatric: Yes: Oriented Labs: CBC, BMP 12/02/17 10:30 12/02/17 06:17 Problem List - Problems (1) CHF (congestive heart failure) Code(s): I50.9 - HEART FAILURE, UNSPECIFIED Qualifiers: Congestive heart failure type: unspecified Congestive heart failure chronicity: acute on chronic Qualified Code(s): I50.9 - Heart failure, unspecified (2) CKD (chronic kidney disease) Code(s): N18.9 - CHRONIC KIDNEY DISEASE, UNSPECIFIED Qualifiers: Chronic kidney disease stage: unspecified stage Qualified Code(s): N18.9 - Chronic kidney disease, unspecified (3) Acute CHF (congestive heart failure) Code(s): I50.9 - HEART FAILURE, UNSPECIFIED (4) Acute hyperkalemia Code(s): E87.5 - HYPERKALEMIA (5) CAD (coronary artery disease) Code(s): I25.10 - ATHSCL HEART DISEASE OF [place] CORONARY ARTERY W/O ANG PCTRS Qualifiers: Coronary Disease-Associated Artery/Lesion type: [place] coronary artery Associated angina: with other forms of angina pectoris (6) CKD (chronic kidney disease) stage 3, GFR 30-59 ml/min Code(s): N18.3 - CHRONIC KIDNEY DISEASE, STAGE 3 (MODERATE) (7) COPD exacerbation Code(s): J44.1 - CHRONIC OBSTRUCTIVE PULMONARY DISEASE W (ACUTE) EXACERBATION Assessment/Plan Current Medications Generic Name Dose Route Start Last Admin Trade Name Freq PRN Reason Stop Dose Admin Acetaminophen 650 mg 11/28/17 15:20 12/02/17 12:27 Tylenol - PO 650 mg Q4H PRN Administration PAIN Alprazolam 0.5 mg 11/28/17 22:00 12/01/17 21:22 Xanax - PO 0.5 mg HS ALDO Administration Amoxicillin/Clavulanate Potassium 1 tab 11/30/17 17:30 12/02/17 08:16 Augmentin - 875mg Tablet PO 1 tab BID@0800,1730 ALDO Administration Atorvastatin Calcium 20 mg 11/28/17 22:00 12/01/17 21:22 Lipitor - PO 20 mg HS ALDO Administration Folic Acid 1 mg 11/29/17 10:00 12/02/17 09:57 Folic Acid - PO 1 mg DAILY ALDO Administration Furosemide 80 mg 12/02/17 10:00 12/02/17 09:57 Lasix - PO 80 mg DAILY ALDO Administration Hydralazine HCl 50 mg 11/28/17 22:00 12/02/17 09:57 Apresoline - PO 50 mg BID ALDO Administration Isosorbide Dinitrate 20 mg 12/01/17 15:28 12/02/17 09:57 Isordil - PO 20 mg BIDISORDIL ALDO Administration Metoprolol Succinate 25 mg 11/28/17 18:30 12/02/17 09:57 Toprol Xl - PO 25 mg BID ALDO Administration Impression 1. CKD 2. anemia 3. CHF 4. HTN 5. DM poorly controlled 6. hyperlipidemia 7. anxiety 8. uterine cancer 9. hx GI bleed 10. acute hyperkalemia Plan - renal function is stabilizing - potassium is improved - cont with lasix - outpt follow up with Dr Kay - avoid anneliese or arb - likely distal RTA - repeat labs in am Dr Moore
[2017-12-02] MEDS ORDERED: FUROSEMIDE 40 MG/4 ML INJECTABLE VIAL IVPUSH ONE (18:00)
--- NOTE | 2017-12-02 19:39 | CON.GI ---
Consult Consult Specialty:: GI Referred by:: Volodymyr Coulter md - History of Present Illness History of Present Illness: 62 y/ F with PMH of r ight breast ca(to undergo CTX and RTX, was admiited withCHF, COPD,and CKD. 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 She denies melena, abdominal pain and rectal bleeding - Past Medical History Cardio/Vascular: Yes: CHF, HTN, Hyperlipdemia, Pulmonary Hypertension Pulmonary: Yes: Asthma, Sleep Apnea (on BIPAP at night) Gastrointestinal: Yes: GI Bleed (see HPI), Other (had EGD and colono 12/31, ) Renal/: Yes: Renal Failure, Renal Inusuff, Other (hyperkalemia) ...LMP: 11/17/07 Endocrine: Yes: Diabetes Mellitus (uncontrolled) - Alcohol/Substance Use Hx Alcohol Use: No - Smoking History Smoking history: Current every day smoker Have you smoked in the past 12 months: Yes Aproximately how many cigarettes per day: 8 - Social History ADL: Independent History of Recent Travel: No Home Medications - Allergies Allergies/Adverse Reactions: Allergies Allergy/AdvReac Type Severity Reaction Status Date / Time No Known Allergies Allergy Verified 11/28/17 11:30 - Home Medications Home Medications: Ambulatory Orders Hydralazine HCl [Apresoline -] 50 mg PO BID #60 tablet 11/19/14 Folic Acid 1 mg PO DAILY 01/09/16 Atorvastatin Ca [Lipitor] 20 mg PO HS 11/25/16 Metoprolol Succinate [Toprol XL -] 50 mg PO DAILY #30 tablet 02/11/17 Alprazolam [Xanax] 0.5 mg PO HS 06/23/17 Amoxicillin/Potassium Clav [Augmentin 875-125 Tablet] 1 tab PO BID 11/28/17 Ciprofloxacin HCl/Dexameth [Ciprodex Otic Suspension] 4 drop BC BID 11/28/17 Fluticasone/Vilanterol [Breo Ellipta 100-25 Mcg INH] 1 each IH DAILY 11/28/17 Furosemide [Lasix -] 80 mg PO DAILY 11/28/17 Sodium Polystyrene Sulfon/Sorb [Sps 30 gm/120 ml Enema] 30 gm RC ASDIR 11/28/17 Physical Exam-GI Vital Signs: Vital Signs Temperature 97.2 F L 12/02/17 13:56 Pulse Rate 64 12/02/17 13:56 Respiratory Rate 20 12/02/17 13:56 Blood Pressure 138/98 12/02/17 13:56 O2 Sat by Pulse Oximetry (%) 94 L 12/02/17 09:00 Constitutional: Yes: Well Nourished Eyes: Yes: Conjunctiva Clear HENT: Yes: Atraumatic Cardiovascular: Yes: Regular Rate and Rhythm Respiratory: Yes: CTA Bilaterally ...Palpate: Yes: Soft. No: Firm/Rigid, Guarding, Hepatomegaly, Mass, Pulsatile Mass, Splenomegaly, Tenderness Labs: CBC, BMP 12/02/17 10:30 12/02/17 06:17 Problem List - Problems (1) Anemia Assessment/Plan: secondary to small bowel vascular ectasias R. transfuse to Hgb greater than 9 continue supportive care as cauterzing all of them will be difficult and carries risk of small bowel perforation Code(s): D64.9 - ANEMIA, UNSPECIFIED Qualifiers: Anemia type: iron deficiency Iron deficiency anemia type: chronic blood loss Qualified Code(s): D50.0 - Iron deficiency anemia secondary to blood loss (chronic)
[2017-12-02] MEDS: ATORVASTATIN CA 20 MG TABLET (FP) PO SCH (21:48)
--- NOTE | 2017-12-02 21:58 | PN ---
Progress Note (short form) - Note Progress Note: Pt seen and examined. d/w RN, Had an event where she felt very "dizzy" . At the time of the encounter , she felt tired and fatigued. No chest pain, palpitations. O/E: Constitutional: Yes: Well Nourished, No Distress Eyes: Yes: Conjunctiva Clear HENT: Yes: Atraumatic, Normocephalic Neck: Yes: Supple, Trachea Midline Cardiovascular: Yes: Regular Rate and Rhythm Respiratory: Yes: Regular, CTA Bilaterally Gastrointestinal: Yes: Normal Bowel Sounds Renal/: Yes: WNL Extremities: Yes: WNL Edema: Yes Edema: LLE: Trace, RLE: 1+ Peripheral Pulses WNL: Yes Integumentary: Yes: WNL Neurological: Yes: Alert, Oriented Last Vital Signs Temp Pulse Resp BP Pulse Ox 98.5 F 62 20 157/89 94 L 12/02/17 17:00 12/02/17 17:00 12/02/17 17:00 12/02/17 17:00 12/02/17 09:00 CBC, BMP 12/02/17 10:30 12/02/17 06:17 Current Medications Generic Name Dose Route Start Last Admin Trade Name Freq PRN Reason Stop Dose Admin Acetaminophen 650 mg 11/28/17 15:20 12/02/17 12:27 Tylenol - PO 650 mg Q4H PRN Administration PAIN Alprazolam 0.5 mg 11/28/17 22:00 12/01/17 21:22 Xanax - PO 0.5 mg HS ALDO Administration Amoxicillin/Clavulanate Potassium 1 tab 11/30/17 17:30 12/02/17 18:12 Augmentin - 875mg Tablet PO 1 tab BID@0800,1730 ALDO Administration Atorvastatin Calcium 20 mg 11/28/17 22:00 12/02/17 21:48 Lipitor - PO 20 mg HS ALDO Administration Folic Acid 1 mg 11/29/17 10:00 12/02/17 09:57 Folic Acid - PO 1 mg DAILY ALDO Administration Furosemide 80 mg 12/02/17 10:00 12/02/17 09:57 Lasix - PO 80 mg DAILY ALDO Administration Hydralazine HCl 50 mg 11/28/17 22:00 12/02/17 21:48 Apresoline - PO 50 mg BID ALDO Administration Isosorbide Dinitrate 20 mg 12/01/17 15:28 12/02/17 18:13 Isordil - PO 20 mg BIDISORDIL ALDO Administration Metoprolol Succinate 25 mg 11/28/17 18:30 12/02/17 21:48 Toprol Xl - PO 25 mg BID ALDO Administration CKD HTN COPD CHF TNBC s/p Lumpectomy. stage IIB T2, N1a , triple negative breast cancer, --s/p lumpectomy--adjuvant treatment when once discharged and stable from cardio/pulm stand point. cardiology f/u rest of the plan per primary will follow d/w IRENA
[2017-12-02] MEDS: ALPRAZolam 0.25 MG TABLET PO SCH (22:54)
[2017-12-03 07:40] LABS: ANION GAP 9 (8-16); BLOOD UREA NITROGEN 76 mg/dL (7-18); CALCIUM 7.9 mg/dL (8.5-10.1); CHLORIDE 107 mmol/L (98-107); CO2 21 mmol/L (21-32); CREATININE 2.6 mg/dL (0.55-1.02); GLUCOSE,RANDOM 183 mg/dL (74-106); MAGNESIUM 1.9 mg/dL (1.8-2.4); SODIUM 137 mmol/L (136-145)
--- NOTE | 2017-12-03 08:45 | DS ---
Physical Examination Vital Signs: Vital Signs Temperature 98.1 F 12/03/17 06:00 Pulse Rate 67 12/03/17 08:33 Respiratory Rate 18 12/03/17 06:00 Blood Pressure 140/67 12/03/17 06:00 O2 Sat by Pulse Oximetry (%) 95 12/03/17 08:33 Findings/Remarks: IN BED NO COMPLAINTS THIS AM Cardiovascular: Yes: Regular Rate and Rhythm Respiratory: Yes: Regular, CTA Bilaterally Gastrointestinal: Yes: Normal Bowel Sounds, Soft. No: Tenderness Labs: CBC, BMP 12/02/17 10:30 12/03/17 05:25 Discharge Summary Reason For Visit: CHF; ANEMIA; CHRONIC KIDNEY DISEASE STAGE 3 Current Active Problems CHF (congestive heart failure) (Acute) CKD (chronic kidney disease) (Acute) Symptomatic anemia (Acute) Hospital Course: The patient is a 62 year old female with a history of HTN, CHF, COPD, HLD, DM, CKD who presents for evaluation of lower extremity edema. The patient reports a 3 day history of worsening lower extremity edema. She noted some worsening SOB earlier today prompting her presentation to the ED for evaluation. She states that her symptoms feel similar to her prior chf exacerbations. She denies any fevers, chills, chest pain, nausea, vomiting, abdominal pain, or changes with urination or bowel movements. She notes worsening symptoms despite taking 80mg of furosimide as her daily medication. History Source: Patient - Past Medical History Cardiovascular: Yes: CHF, HTN, Hyperlipdemia, Pulmonary Hypertension Pulmonary: Yes: Asthma, Sleep Apnea (on BIPAP at night) Gastrointestinal: Yes: GI Bleed (see HPI), Other (had EGD and colono 12/31, ) Renal/: Yes: Renal Failure, Renal Inusuff, Other (hyperkalemia) ...LMP: 11/17/07 Heme/Onc: Yes: Anemia Endocrine: Yes: Diabetes Mellitus (uncontrolled) - Smoking History Smoking history: Current every day smoker Have you smoked in the past 12 months: Yes Aproximately how many cigarettes per day: 8 - Problems (1) CHF (congestive heart failure) Assessment/Plan: IMPROVING MONITOR ON LASIX--PO FOLLOW LABS Code(s): I50.9 - HEART FAILURE, UNSPECIFIED Qualifiers: Congestive heart failure type: unspecified Congestive heart failure chronicity: acute on chronic Qualified Code(s): I50.9 - Heart failure, unspecified (2) CKD (chronic kidney disease) Assessment/Plan: OBSERVE ON CURRENT MEDS Laboratory Tests 11/30/17 11/30/17 05:05 18:55 BUN 68 H 69 H Creatinine 2.6 H 2.6 H Code(s): N18.9 - CHRONIC KIDNEY DISEASE, UNSPECIFIED Qualifiers: Chronic kidney disease stage: unspecified stage Qualified Code(s): N18.9 - Chronic kidney disease, unspecified (3) Anemia Assessment/Plan: CHRONIC S/P PRBC FOLLOW LABS GI CONSULT Laboratory Tests 11/28/17 11/29/17 11/30/17 12:45 07:09 05:05 Hgb 8.1 L D 7.7 L 8.6 L D 12/01/17 06:20 Hgb 9.4 L Code(s): D64.9 - ANEMIA, UNSPECIFIED Qualifiers: Anemia type: iron deficiency Iron deficiency anemia type: chronic blood loss Qualified Code(s): D50.0 - Iron deficiency anemia secondary to blood loss (chronic) (4) CAD (coronary artery disease) Assessment/Plan: NO CP CARDIO ON BOARD Code(s): I25.10 - ATHSCL HEART DISEASE OF [place] CORONARY ARTERY W/O ANG PCTRS Qualifiers: Coronary Disease-Associated Artery/Lesion type: [place] coronary artery Associated angina: with other forms of angina pectoris Condition: Improved - Instructions Referrals: Anyi Mcgrath MD [Primary Care Provider] - 2 Weeks Disposition: HOME - Home Medications Comprehensive Discharge Medication List: Ambulatory Orders Hydralazine HCl [Apresoline -] 50 mg PO BID #60 tablet 11/19/14 Folic Acid 1 mg PO DAILY 01/09/16 Atorvastatin Ca [Lipitor] 20 mg PO HS 11/25/16 Metoprolol Succinate [Toprol XL -] 50 mg PO DAILY #30 tablet 02/11/17 Alprazolam [Xanax] 0.5 mg PO HS 06/23/17 Amoxicillin/Potassium Clav [Augmentin 875-125 Tablet] 1 tab PO BID 11/28/17 Ciprofloxacin HCl/Dexameth [Ciprodex Otic Suspension] 4 drop BC BID 11/28/17 Fluticasone/Vilanterol [Breo Ellipta 100-25 Mcg INH] 1 each IH DAILY 11/28/17 Furosemide [Lasix -] 80 mg PO DAILY 11/28/17 Sodium Polystyrene Sulfon/Sorb [Sps 30 gm/120 ml Enema] 30 gm RC ASDIR 11/28/17
[2017-12-03] MEDS: FOLIC ACID 1 MG TABLET (FP) PO SCH (09:21)
[2017-12-03] MEDS: FUROSEMIDE 40 MG TABLET (FP) PO SCH (09:21)
[2017-12-03] MEDS: hydrALAZINE HCL 50 MG TABLET (FP) PO SCH (09:21)
[2017-12-03] MEDS: ISOSORBIDE DINITRATE 10 MG TABLET (FP) PO SCH (09:21)
[2017-12-03] MEDS: AMOX TR/POT CLAV 875MG/125MG TABLETS (FP) PO SCH (09:21)
[2017-12-03] MEDS: METOPROLOL SUCCINATE 25 MG TAB.SR.24H (FP) PO SCH (09:21)
--- NOTE | 2017-12-03 11:33 | PN ---
Progress Note (short form) - Note Progress Note: Chief Complaint: sob History of Present Illness: no cp sob palps dizzy Current Medications Generic Name Dose Route Start Last Admin Trade Name Lois PRN Reason Stop Dose Admin Acetaminophen 650 mg 11/28/17 15:20 12/02/17 12:27 Tylenol - PO 650 mg Q4H PRN Administration PAIN Alprazolam 0.5 mg 11/28/17 22:00 12/02/17 22:54 Xanax - PO 0.5 mg HS ALDO Administration Amoxicillin/Clavulanate Potassium 1 tab 11/30/17 17:30 12/03/17 09:21 Augmentin - 875mg Tablet PO 1 tab BID@0800,1730 ALDO Administration Atorvastatin Calcium 20 mg 11/28/17 22:00 12/02/17 21:48 Lipitor - PO 20 mg HS ALDO Administration Folic Acid 1 mg 11/29/17 10:00 12/03/17 09:21 Folic Acid - PO 1 mg DAILY ALDO Administration Furosemide 80 mg 12/02/17 10:00 12/03/17 09:21 Lasix - PO 80 mg DAILY ALDO Administration Hydralazine HCl 50 mg 11/28/17 22:00 12/03/17 09:21 Apresoline - PO 50 mg BID ALDO Administration Isosorbide Dinitrate 20 mg 12/01/17 15:28 12/03/17 09:21 Isordil - PO 20 mg BIDISORDIL ALDO Administration Metoprolol Succinate 25 mg 11/28/17 18:30 12/03/17 09:21 Toprol Xl - PO 25 mg BID ALDO Administration - Objective Vital Signs: Vital Signs Period Temp Pulse Resp BP Sys/Padron Pulse Ox Last 24 Hr 97.2 F-98.6 F 62-70 16-24 138-157/67-98 95 Constitutional: Yes: No Distress, Calm Eyes: No: Sclera Icterus HENT: No: Nasal Congestion Cardiovascular: Yes: Regular Rate and Rhythm, JVD (4 cm), S1, S2, Other (PMI non diplaced). No: Gallop, Murmur Respiratory: Yes: diminished air mov't, trace wheezes. No: Accessory Muscle Use , Rales, Wheezes Gastrointestinal: Yes: Normal Bowel Sounds, Soft. No: Tenderness Extremities: No: Cold Edema: trace le edema Integumentary: No: Jaundice Neurological: Yes: Alert, Oriented (x3) Psychiatric: No: Agitated Labs: CBC, BMP 12/02/17 10:30 12/03/17 05:25 Echo 08/03: mod LVE, mod decr EF (global). nl RV. mild-mod MR, mod TR. RVSP 45. LHC 06/29: nl EDP; EF 40% (global); 50-60% OM1 (normal FFR); mild dz others MIBI 06/29 (pers): no STs; moder, partly rev defect AW c/w ischemia; mild LVE, mild-mod global LV hypo (40% EF); MILD TID MIBI 08/27 (pers): no ST change; TDS perfusion b/c of GI artifact and gating artifact; mild LV dilation and mild decr EFvisually (no TID) CXR (image reviewed): no effusions, no vasc redistribution. mild incr markings Assessment/Plan Breast cancer: -recently diagnosed s/p mastectomy. -chemo to start shortly (dr harvey) chronic systolic CHF: -nonisch CMP (prior cath for this w/u). LVEF MODERATELY REDUCED, STABLE VS PRIOR ECHO, ON HER 08/03 STUDY -01/31 CHF ADMIT: DIURESED DOWN TO 199 LBS, FROM 214 INITIALLY -EUVOLEMIC WHEN SAW ME 07/03, ON LASIX 80 QD THEN, CONFIRMS MED COMPLIANCE. -BNP 21K, PRIOR RANGE 7K-21K--NOTE RELIABILITY OF THIS FINDING UNCERTAIN WITH MARKED DECR GFR (INCL LYSSA COMPONENT) -WT 201, NOT SIGNIF UP VS PRIOR DRY WT. -CXR NO SIGNS CHF. BUN/CREAT BUMPED AFTER LASIX 80 IV. -NO JVD ON EXAM (PRESENT CONSISTENTLY WITH PRIOR CHF EXACERBATIONS). -IN LIGHT OF ALL OF THE ABOVE, SUSPECT HER INCR SOB IS NOT DUE TO CHF. MORE LIKELY SECONDARY TO ACUTE ANEMIA. -11/29: HELD LASIX, TRANSFUSE PRBC'S (1 UNIT TODAY +/- IV LASIX IF SOB...CONSIDER 2ND UNIT TOMORROW IF HGB <9) -VENOUS DUPLEX LE TO R/O DVT IN LIGHT OF EDEMA. -11/30: wt stable, creat same but BUN up slightly. hgb improved (8s) s/p PRBCs yest. SOB persists. will transfuse again today--IF SOB PERSISTS WITH ONCE HGB IS > 9 TOMORROW, THEN WILL HAVE TO REPEAT TRIAL IVP LASIX X 1 -12/01: wt unchanged. mild JVD present. bun/creat improving slightly. hgb now > 9. sob resolved with correction of anemia. will give one dose iv lasix today, then resume po dose (80 qd) tomorrow if bun/creat stable - 12/02: episode of lethargy this am. New wheezes on exam and weight increased by 5 lbs. Transitioned to po lasix today --> trial of extra lasix 40 mg IV x1. reassess ability to transition to po lasix tomorrow. repeat cxr tomorrow morning. -12/03: cxr clear, pt feeling better, cont po lasix 80 qd -METOPR 25 BID, HYDRALAZINE AND NITRATES (dose increased 12/01) -NO EVELINA/ARB, DUE TO RECURRENT SEVERE HYPERKALEMIA (DUE TO PT REPEATED NONCOMPLIANCE WITH REGULAR KAYEXALATE DOSING) LYSSA on CKD with hyperkalemia: -CREAT RANGES 1.8-2.2 ON LASIX (80 QD-BID) -bumped here s/p lasix 80mg dose x 1 on admit, suspect prerenal in setting of hypoperfusion from anemia. Then improved on lasix 40 mg daily given 11/30 and . -anemia correction as doing iron deficiency anemia, chronic: - sees dr white - prior scopes, referred for SB workup by him, ? cauterization done - anemic here, ? occult GIB vs related to breast malignancy or its tx - per dr [place], heme-onc, +/- GI as indicated Chronic ischemic heart disease: -NONOBSTR OM (INCL FFR NEGATIVE), NEVER HAD ANGINA. -TROP NEG X 3 HERE, NO ISCHEMIC ECG FINDINGS (NONSPECIFIC ST-T'S) -CONT HOME STATIN DOING -HOLD ASA GIVEN ACUTE ANEMIA, WHILE ASSESSMENT FOR OCCULT GIB UNDERWAY -IRON STUDIES, STOOL GUAIAC Essential hypertension: -stable Chronic obstructive pulmonary disease -STABLE ON BB LONG TIME Obstructive sleep apnea -USES CPAP AT HOME; Chronic renal insufficiency -CREAT RANGES 1.8-2.2 ON LASIX (80 QD-BID). Pure hypercholesterolemia -ON ATORVA 20MG AT HOME Vascular disorder of extremity -SYMPTOMATIC RLE DZ WITH CLAUDICATION. 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
--- NOTE | 2017-12-03 11:34 | EKG ---
Test Reason : Blood Pressure : / mmHG Vent. Rate : 062 BPM Atrial Rate : 062 BPM P-R Int : 154 ms QRS Dur : 092 ms QT Int : 494 ms P-R-T Axes : 074 000 -49 degrees QTc Int : 501 ms NORMAL SINUS RHYTHM PROLONGED QT ABNORMAL ECG WHEN COMPARED WITH ECG OF 02-DEC-2017 10:25, NO SIGNIFICANT CHANGE WAS FOUND Confirmed by MARTHA VELASCO, CLARICE ([id number]) on 12/03/2017 11:33:53 AM Referred By: KELECHI GUTIERREZ Confirmed By:CLARICE THOMAS MD
--- NOTE | 2017-12-03 12:03 | PN ---
Progress Note, Physician History of Present Illness: Pt seen and examined at bedside. She is awake and alert. She denies shortness of breath. She denies dysuria. - Current Medication List Current Medications: Active Medications Acetaminophen (Tylenol -) 650 mg PO Q4H PRN PRN Reason: PAIN Last Admin: 12/02/17 12:27 Dose: 650 mg Alprazolam (Xanax -) 0.5 mg PO HS [facility] Last Admin: 12/02/17 22:54 Dose: 0.5 mg Amoxicillin/Clavulanate Potassium (Augmentin - 875mg Tablet) 1 tab PO BID@0800, 1730 [facility] Last Admin: 12/03/17 09:21 Dose: 1 tab Atorvastatin Calcium (Lipitor -) 20 mg PO HS [facility] Last Admin: 12/02/17 21:48 Dose: 20 mg Folic Acid (Folic Acid -) 1 mg PO DAILY [facility] Last Admin: 12/03/17 09:21 Dose: 1 mg Furosemide (Lasix -) 80 mg PO DAILY [facility] Last Admin: 12/03/17 09:21 Dose: 80 mg Hydralazine HCl (Apresoline -) 50 mg PO BID [facility] Last Admin: 12/03/17 09:21 Dose: 50 mg Isosorbide Dinitrate (Isordil -) 20 mg PO BIDISORDIL [facility] Last Admin: 12/03/17 09:21 Dose: 20 mg Metoprolol Succinate (Toprol Xl -) 25 mg PO BID [facility] Last Admin: 12/03/17 09:21 Dose: 25 mg - Objective Vital Signs: Vital Signs Temperature 97.5 F L 12/03/17 10:00 Pulse Rate 64 12/03/17 10:00 Respiratory Rate 24 12/03/17 10:00 Blood Pressure 149/72 12/03/17 10:00 O2 Sat by Pulse Oximetry (%) 98 12/03/17 09:00 Constitutional: Yes: Calm Eyes: Yes: Conjunctiva Clear HENT: Yes: Atraumatic Neck: Yes: Supple Cardiovascular: Yes: S1, S2 Respiratory: Yes: CTA Bilaterally Gastrointestinal: Yes: Soft Genitourinary: Yes: WNL Musculoskeletal: Yes: WNL Edema: Yes Edema: LLE: Trace, RLE: Trace Neurological: Yes: Oriented Psychiatric: Yes: Oriented Labs: CBC, BMP 12/02/17 10:30 12/03/17 05:25 Problem List - Problems (1) CHF (congestive heart failure) Code(s): I50.9 - HEART FAILURE, UNSPECIFIED Qualifiers: Congestive heart failure type: unspecified Congestive heart failure chronicity: acute on chronic Qualified Code(s): I50.9 - Heart failure, unspecified (2) CKD (chronic kidney disease) Code(s): N18.9 - CHRONIC KIDNEY DISEASE, UNSPECIFIED Qualifiers: Chronic kidney disease stage: unspecified stage Qualified Code(s): N18.9 - Chronic kidney disease, unspecified (3) Acute CHF (congestive heart failure) Code(s): I50.9 - HEART FAILURE, UNSPECIFIED (4) Acute hyperkalemia Code(s): E87.5 - HYPERKALEMIA (5) CAD (coronary artery disease) Code(s): I25.10 - ATHSCL HEART DISEASE OF [place] CORONARY ARTERY W/O ANG PCTRS Qualifiers: Coronary Disease-Associated Artery/Lesion type: [place] coronary artery Associated angina: with other forms of angina pectoris (6) CKD (chronic kidney disease) stage 3, GFR 30-59 ml/min Code(s): N18.3 - CHRONIC KIDNEY DISEASE, STAGE 3 (MODERATE) (7) COPD exacerbation Code(s): J44.1 - CHRONIC OBSTRUCTIVE PULMONARY DISEASE W (ACUTE) EXACERBATION Assessment/Plan Current Medications Generic Name Dose Route Start Last Admin Trade Name Freq PRN Reason Stop Dose Admin Acetaminophen 650 mg 11/28/17 15:20 12/02/17 12:27 Tylenol - PO 650 mg Q4H PRN Administration PAIN Alprazolam 0.5 mg 11/28/17 22:00 12/02/17 22:54 Xanax - PO 0.5 mg HS ALDO Administration Amoxicillin/Clavulanate Potassium 1 tab 11/30/17 17:30 12/03/17 09:21 Augmentin - 875mg Tablet PO 1 tab BID@0800,1730 ALDO Administration Atorvastatin Calcium 20 mg 11/28/17 22:00 12/02/17 21:48 Lipitor - PO 20 mg HS ALDO Administration Folic Acid 1 mg 11/29/17 10:00 12/03/17 09:21 Folic Acid - PO 1 mg DAILY ALDO Administration Furosemide 80 mg 12/02/17 10:00 01/17/18 09:21 Lasix - PO 80 mg DAILY ALDO Administration Hydralazine HCl 50 mg 11/28/17 22:00 12/03/17 09:21 Apresoline - PO 50 mg BID ALDO Administration Isosorbide Dinitrate 20 mg 12/01/17 15:28 12/03/17 09:21 Isordil - PO 20 mg BIDISORDIL ALDO Administration Metoprolol Succinate 25 mg 11/28/17 18:30 12/03/17 09:21 Toprol Xl - PO 25 mg BID ALDO Administration Impression 1. CKD 2. anemia 3. CHF 4. HTN 5. DM poorly controlled 6. hyperlipidemia 7. anxiety 8. uterine cancer 9. hx GI bleed 10. acute hyperkalemia Plan - cont lasix - pt will follow with Dr Kay next week - avoid anneliese or arb - likely distal RTA - repeat labs in am Dr Moore
[2017-12-03 15:25] VITALS: BP 145/72; PULSE 66; TEMP 97.8
== END 2017-12-03 15:50 | disposition home or self-care (01) | DRG 292 ==
LOC: JER 11:20 → JERBED 15:10 → J4W 16:55
PROVIDERS: ADMIT Family Medicine; ATTEND Family Medicine
PROC: 30233H1 Transfusion of Nonautologous Whole Blood into Peripheral Vein, Percutaneous Approach (ICD-10-PCS; principal; 2017-11-29)
DX: I13.0 Hypertensive heart and chronic kidney disease with heart failure and stage 1 through stage 4 chronic kidney disease, or unspecified chronic kidney disease (principal); I50.22 Chronic systolic (congestive) heart failure; N17.9 Acute kidney failure, unspecified; J44.1 Chronic obstructive pulmonary disease with (acute) exacerbation; D50.9 Iron deficiency anemia, unspecified; I42.9 Cardiomyopathy, unspecified; E11.65 Type 2 diabetes mellitus with hyperglycemia; E11.22 Type 2 diabetes mellitus with diabetic chronic kidney disease; N18.3 Chronic kidney disease, stage 3 (moderate); I27.20 Pulmonary hypertension, unspecified; C50.911 Malignant neoplasm of unspecified site of right female breast; Z90.11 Acquired absence of right breast and nipple; E78.5 Hyperlipidemia, unspecified; I25.10 Atherosclerotic heart disease of native coronary artery without angina pectoris; E87.5 Hyperkalemia; G47.33 Obstructive sleep apnea (adult) (pediatric); Z99.89 Dependence on other enabling machines and devices; F17.210 Nicotine dependence, cigarettes, uncomplicated; I73.9 Peripheral vascular disease, unspecified; R21 Rash and other nonspecific skin eruption; K59.00 Constipation, unspecified
CPT/HCPCS: 36415; 36430; 36600; 71045-TC; 71046-TC; 76775-TC; 80048; 80053; 80061; 82550; 82607; 82728; 82747; 82803; 82962; 83036; 83540; 83550; 83721; 83735; 83880; 84443; 84484; 85014; 85025; 85027; 86850; 86900; 86901; 86922; 93005; 93010; 93970-TC; 94660; 99284-25; P9038; P9058

== ENCOUNTER 2018-03-09 14:13 | Inpatient (IN) | payer OTHER ==
[2018-03-09] MEDS ORDERED: ONDANSETRON 4 MG/2 ML VIAL IVPUSH ONE (14:57)
[2018-03-09] MEDS ORDERED: SODIUM CHLORIDE 1,000 ML IV STA (14:57)
--- NOTE | 2018-03-09 14:58 | PDOC ---
History of Present Illness - General Chief Complaint: Revisit, Lab Variance Stated Complaint: DIZZINESS, HIGH K+ LEVELS (PCP SENT) Time Seen by Provider: 03/09/18 14:48 - History of Present Illness Initial Comments: 03/09/18 15:13 The patient is a 62 year old female with a history of HTN, HLD, DM, CKD who presents for evaluation of potassium. The patient reports that she recently had blood work drawn by her primary care provider 3 days ago and was called by Dr. Mcgrath today to present to the ED due to an elevated potassium level. The patient notes increased restlessness over the past 1week as well as nausea and multiple episodes of non-bilious, non-bloody vomiting. She states that her potassium level has been elevated in the past required admission . She otherwise denies fevers, chills, SOB, chest pain, abdominal pain, or changes with urination or bowel movements. Past History - Past Medical History Allergies/Adverse Reactions: Allergies Allergy/AdvReac Type Severity Reaction Status Date / Time No Known Allergies Allergy Verified 03/09/18 14:16 Home Medications: Ambulatory Orders hydrALAZINE HCL [Apresoline -] 50 mg PO BID #60 tablet 11/19/14 Folic Acid 1 mg PO DAILY 01/09/16 Atorvastatin Ca [Lipitor] 20 mg PO HS 11/25/16 Metoprolol Succinate [Toprol XL -] 50 mg PO DAILY #30 tablet 02/11/17 Alprazolam [Xanax] 0.5 mg PO HS 06/23/17 Fluticasone/Vilanterol [Breo Ellipta 100-25 Mcg INH] 1 each IH DAILY 11/28/17 Furosemide [Lasix -] 80 mg PO DAILY 11/28/17 Sodium Polystyrene Sulfon/Sorb [Sps 30 gm/120 ml Enema] 30 gm RC ASDIR 11/28/17 Anemia: Yes Asthma: Yes Cancer: Yes (Uterine Ca - 2007,rt breast ca,) Cardiac Disorders: Yes (Systolic cardiomyopathy, CAD, PAD) CVA: No COPD: No CHF: Yes Dementia: No Diabetes: Yes GI Disorders: Yes (Colon polyps) Disorders: Yes HTN: Yes Hypercholesterolemia: Yes Kidney Stones: Yes (CKD) Liver Disease: No Seizures: No Thyroid Disease: No - Surgical History Abdominal Surgery: No Appendectomy: No Cardiac Surgery: No Cholecystectomy: No Lung Surgery: No Neurologic Surgery: No Orthopedic Surgery: No - Family Disease History Family Disease History: Other: Father (kidney disease), Brother (kidney disease) - Immunization History Immunization Up to Date: Yes - Suicide/Smoking/Psychosocial Hx Smoking Status: Yes Smoking History: Current every day smoker Years of Tobacco Use: 31 Have you smoked in the past 12 months: Yes Number of Cigarettes Smoked Daily: 8 Information on smoking cessation initiated: Yes 'Breaking Loose' booklet given: 03/09/18 Hx Alcohol Use: No Drug/Substance Use Hx: No Substance Use Type: None Hx Substance Use Treatment: No Review of Systems - Review of Systems Comments:: 03/09/18 15:16 Constitutional: Restlessness. No fevers, chills, fatigue, malaise HEENT: No Rhinorrhea, nasal congestion, visual changes Cardiovascular: No chest pain, syncope, palpitations, lightheadedness Respiratory: No Cough, SOB, Hemoptysis, Gastrointestinal: Nausea, vomiting. No Abdominal pain, Constipation, Diarrhea, Melena Genitourinary: No Dysuria, Frequency, Urgency, Hesitancy, Hematuria, Flank pain Musculoskeletal: No Myalgia, arthralgia Skin: No rashes, itching, bruising, pallor Neurologic: No Headache, Dizziness, Numbness, Weakness, or Tingling Psychiatric: No Hallucinations. No SI or HI *Physical Exam - Vital Signs Last Vital Signs Temp Pulse Resp BP Pulse Ox 98.1 F 74 18 190/94 100 03/09/18 14:17 03/09/18 14:17 03/09/18 14:17 03/09/18 14:17 03/09/18 14:17 - Physical Exam Comments: 03/09/18 15:17 General Appearance: Nourished. No Apparent Distress HEENT: EOMI, SREEDHAR. No Pharyngeal Erythema, Tonsillar Exudate, Tonsillar Erythema Neck: No Cervical Lymphadenopathy Respiratory/Chest: Lungs Clear, Normal Breath Sounds. No Crackles, Rales, Rhonchi, Wheezing Cardiovascular: Regular Rhythm, Regular Rate. No Murmur, Gallops, Rubs Gastrointestinal/Abdominal: Normal Bowel Sounds, Soft. 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 Differential includes but is not limited to: Hyperkalemia, CKD, LYSSA, infectious, metabolic derangement. Given the patient's reported history of hyperkalemia, we will obtain a cbc, cmp, mag, phos , and ekg to evaluate further. We will treat in the meantime with zofran and iv fluids. We will continue to monitor and reassess. 03/09/18 18:10 CBC, cmp, mag, phos are unremarkable or unchanged. The patient does not demonstrate hyperkalemia at this time, however remains symptomatic. We discussed the case with Dr. Mcgrath who requests observation admission and accepted the patient for admission. *DC/Admit/Observation/Transfer Diagnosis at time of Disposition: CKD (chronic kidney disease) stage 3, GFR 30-59 ml/min, Lightheadedness - Discharge Dispostion Condition at time of disposition: Stable Admit: Yes - Referrals - Patient Instructions - Post Discharge Activity
[2018-03-09] MEDS ORDERED: ONDANSETRON 4 MG/2 ML VIAL ONE (15:06)
[2018-03-09] MEDS ORDERED: METOCLOPRAMIDE HCL INJECTION 10 MG/2 ML VIAL IVPUSH ONE (15:34)
[2018-03-09 15:40] LABS: BASO % 0.5 % (0-2.0); EOS % 2.2 % (0-4.5); HEMATOCRIT 29.8 % (32.4-45.2); HEMOGLOBIN 9.7 GM/dL (10.7-15.3); LYMPH % 11.6 % (8-40); MCH 29.9 pg (25.7-33.7); MCHC 32.5 g/dl (32.0-36.0); MEAN CELL VOLUME 91.8 fl (80-96); MEAN PLT VOLUME 9.5 fl (7.5-11.1); MONO % 15.9 % (3.8-10.2); NEUT % 69.8 % (42.8-82.8); PLATELET COUNT 226 K/MM3 (134-434); RBC 3.25 M/mm3 (3.60-5.2); WHITE BLOOD COUNT 4.4 K/mm3 (4.0-10.0)
[2018-03-09 15:51] LABS: ALBUMIN 3.2 g/dl (3.4-5.0); ALK PHOS 165 U/L (45-117); ANION GAP 6 (8-16); BILIRUBIN,TOTAL 0.5 mg/dL (0.2-1.0); BLOOD UREA NITROGEN 55 mg/dL (7-18); CALCIUM 8.7 mg/dL (8.5-10.1); CHLORIDE 115 mmol/L (98-107); CO2 22 mmol/L (21-32); CREATININE 2.3 mg/dL (0.55-1.02); GLUCOSE,RANDOM 136 mg/dL (74-106); MAGNESIUM 1.8 mg/dL (1.8-2.4); PHOSPHOROUS 4.3 mg/dL (2.5-4.9); POTASSIUM 4.6 mmol/L (3.5-5.1); SGOT/AST 22 U/L (15-37); SGPT/ALT 30 U/L (12-78); SODIUM 143 mmol/L (136-145); TOT PROT 7.5 g/dl (6.4-8.2)
[2018-03-09] MEDS ORDERED: METOCLOPRAMIDE HCL INJECTION 10 MG/2 ML VIAL ONE (15:55)
--- NOTE | 2018-03-09 16:23 | PDOC ---
Attending Attestation - Resident Resident Name: Mitchell Henao - ED Attending Attestation I have performed the following: I have examined & evaluated the patient, The case was reviewed & discussed with the resident, I agree w/resident's findings & plan, Exceptions are as noted - HPI HPI: 03/09/18 16:17 Ms Yun is a 62 yo F with a h/o HTN, HLD, DM, CKD who presents for evaluation of potassium. She was seen by PMD 3 days ago Blood tests performed, pt was called today because potassium was elevated Pt reports nausea but is requesting something to eat No fevers or chills No abdominal pain - Physicial Exam PE: 03/09/18 16:23 General Appearance: Nourished. No Apparent Distress HEENT: EOMI, SREEDHAR. No Pharyngeal Erythema, Tonsillar Exudate, Tonsillar Erythema Respiratory/Chest: Lungs Clear, Normal Breath Sounds. No Crackles, Rales, Rhonchi, Wheezing Cardiovascular: Regular Rhythm, Regular Rate. Gastrointestinal/Abdominal: Normal Bowel Sounds, Soft. 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
[2018-03-09] MEDS ORDERED: ONDANSETRON 4 MG/2 ML VIAL IVPUSH PRN (20:00)
[2018-03-09] MEDS: ALBUTEROL SO4 0.083% IH SOL 2.5 MG/3 ML VIAL.NEB. NEB SCH (20:40)
[2018-03-09] MEDS ORDERED: PRAMIPEXOLE DIHYDROCHLORIDE 0.25 MG TABLET PO ONE (21:23)
[2018-03-09] MEDS: ALPRAZolam 0.25 MG TABLET PO SCH (21:41)
[2018-03-09] MEDS: ATORVASTATIN CA 20 MG TABLET (FP) PO SCH (21:41)
[2018-03-09] MEDS: hydrALAZINE HCL 50 MG TABLET (FP) PO SCH (21:41)
[2018-03-09] MEDS: HEPARIN NA (PORCINE) 5,000 UNITS/ML 1ML VIAL SQ SCH (21:41)
[2018-03-09 21:44] LABS: N-TERMINAL BNP 32382.4 pg/ml (5-125)
[2018-03-09] MEDS: INSULIN SLIDING SCALE (NOVOLOG) 1 VIAL SQ SCH (21:45)
[2018-03-10 04:08] VITALS: BMI 31.5
[2018-03-10] MEDS: FUROSEMIDE 40 MG/4 ML INJECTABLE VIAL IVPUSH SCH ×2 (06:48→13:51)
[2018-03-10] MEDS ORDERED: INSULIN (NOVOLOG) ASPART 100 UNITS/ML 10ML VIAL ONE ×2 (06:48→21:07)
[2018-03-10] MEDS: INSULIN SLIDING SCALE (NOVOLOG) 1 VIAL SQ SCH ×4 (06:49→21:08)
[2018-03-10] MEDS: ALBUTEROL SO4 0.083% IH SOL 2.5 MG/3 ML VIAL.NEB. NEB SCH ×4 (07:20→19:43)
[2018-03-10 08:03] LABS: BASO % 0.5 % (0-2.0); EOS % 2.4 % (0-4.5); HEMATOCRIT 27.3 % (32.4-45.2); HEMOGLOBIN 8.7 GM/dL (10.7-15.3); LYMPH % 10.9 % (8-40); MCH 29.4 pg (25.7-33.7); MCHC 31.7 g/dl (32.0-36.0); MEAN CELL VOLUME 92.9 fl (80-96); MEAN PLT VOLUME 9.7 fl (7.5-11.1); MONO % 15.4 % (3.8-10.2); NEUT % 70.8 % (42.8-82.8); PLATELET COUNT 198 K/MM3 (134-434); RBC 2.94 M/mm3 (3.60-5.2); RDW 17.8 % (11.6-15.6); WHITE BLOOD COUNT 5.9 K/mm3 (4.0-10.0)
[2018-03-10 08:11] LABS: CHLORIDE 111 mmol/L (98-107); SODIUM 140 mmol/L (136-145)
[2018-03-10 08:27] LABS: ALBUMIN 3.1 g/dl (3.4-5.0); ALK PHOS 162 U/L (45-117); ANION GAP 11 (8-16); BILIRUBIN,TOTAL 0.3 mg/dL (0.2-1.0); BLOOD UREA NITROGEN 65 mg/dL (7-18); CALCIUM 7.9 mg/dL (8.5-10.1); CO2 18 mmol/L (21-32); GLUCOSE,RANDOM 208 mg/dL (74-106); MAGNESIUM 1.8 mg/dL (1.8-2.4); PHOSPHOROUS 5.1 mg/dL (2.5-4.9); SGOT/AST 46 U/L (15-37); SGPT/ALT 45 U/L (12-78); TOT PROT 6.9 g/dl (6.4-8.2)
--- NOTE | 2018-03-10 09:14 | HP ---
Admitting History and Physical - Primary Care Physician PCP: Volodymyr Coulter - Admission Chief Complaint: WEAKNESS/HYPERKALEMIA History of Present Illness: The patient is a 62 year old female with a history of HTN, HLD, DM, CKD who presents for evaluation of potassium. The patient reports that she recently had blood work drawn by her primary care provider 3 days ago and was called by Dr. Mcgrath today to present to the ED due to an elevated potassium level. The patient notes increased restlessness over the past 1week as well as nausea and multiple episodes of non-bilious, non-bloody vomiting. She states that her potassium level has been elevated in the past required admission . She otherwise denies fevers, chills, SOB, chest pain, abdominal pain, or changes with urination or bowel movements. History Source: Patient, Medical Record - Past Medical History Cardiovascular: Yes: CHF, HTN, Hyperlipdemia, Pulmonary Hypertension Pulmonary: Yes: Asthma, Sleep Apnea (on BIPAP at night) Gastrointestinal: Yes: GI Bleed (see HPI), Other (had EGD and colono 12/31, ) Renal/: Yes: Renal Failure, Renal Inusuff, Other (hyperkalemia) ...LMP: 11/17/07 Heme/Onc: Yes: Anemia Endocrine: Yes: Diabetes Mellitus (uncontrolled) - Smoking History Smoking history: Current every day smoker Have you smoked in the past 12 months: Yes Aproximately how many cigarettes per day: 5 - Alcohol/Substance Use Hx Alcohol Use: No - Social History ADL: Independent History of Recent Travel: No Home Medications - Allergies Allergies/Adverse Reactions: Allergies Allergy/AdvReac Type Severity Reaction Status Date / Time No Known Allergies Allergy Verified 03/09/18 14:16 - Home Medications Home Medications: Ambulatory Orders hydrALAZINE HCL [Apresoline -] 50 mg PO BID #60 tablet 11/19/14 Folic Acid 1 mg PO DAILY 01/09/16 Atorvastatin Ca [Lipitor] 20 mg PO HS 11/25/16 Metoprolol Succinate [Toprol XL -] 50 mg PO DAILY #30 tablet 02/11/17 Alprazolam [Xanax] 0.5 mg PO HS 06/23/17 Fluticasone/Vilanterol [Breo Ellipta 100-25 Mcg INH] 1 each IH DAILY 11/28/17 Furosemide [Lasix -] 80 mg PO DAILY 11/28/17 Sodium Polystyrene Sulfon/Sorb [Sps 30 gm/120 ml Enema] 30 gm RC ASDIR 11/28/17 Review of Systems - Review of Systems Constitutional: reports: Loss of Appetite, Weakness Eyes: reports: No Symptoms HENT: reports: No Symptoms Neck: reports: No Symptoms Cardiovascular: reports: No Symptoms Respiratory: reports: No Symptoms Gastrointestinal: reports: No Symptoms Genitourinary: reports: No Symptoms Musculoskeletal: reports: No Symptoms Integumentary: reports: No Symptoms Neurological: reports: No Symptoms Endocrine: reports: No Symptoms Hematology/Lymphatic: reports: No Symptoms Psychiatric: reports: No Symptoms Physical Examination Vital Signs: Vital Signs Temperature 99.0 F 03/10/18 06:00 Pulse Rate 79 03/10/18 06:00 Respiratory Rate 20 03/10/18 06:00 Blood Pressure 153/77 03/10/18 06:00 O2 Sat by Pulse Oximetry (%) 95 03/09/18 21:00 Constitutional: Yes: Mild Distress Eyes: Yes: WNL HENT: Yes: WNL Neck: Yes: WNL Cardiovascular: Yes: WNL Respiratory: Yes: WNL Gastrointestinal: Yes: WNL Renal/: Yes: WNL Musculoskeletal: Yes: Muscle Weakness Extremities: Yes: WNL Edema: No Peripheral Pulses WNL: Yes Integumentary: Yes: WNL Wound/Incision: Yes: Clean/Dry Neurological: Yes: WNL ...Motor Strength: WNL Psychiatric: Yes: WNL Labs: CBC, BMP 03/10/18 07:00 03/10/18 07:00 Problem List - Problems (1) CKD (chronic kidney disease) stage 3, GFR 30-59 ml/min Code(s): N18.3 - CHRONIC KIDNEY DISEASE, STAGE 3 (MODERATE) (2) Lightheadedness Code(s): R42 - DIZZINESS AND GIDDINESS (3) Acute hyperkalemia Code(s): E87.5 - HYPERKALEMIA Assessment/Plan REPEAT K+ NOW RENAL EVAL RENAL/LOW POTASSIUM DIET DISCHARGE PER NEPHROLOGY
--- NOTE | 2018-03-10 10:20 | EKG ---
Test Reason : Blood Pressure : / mmHG Vent. Rate : 074 BPM Atrial Rate : 074 BPM P-R Int : 158 ms QRS Dur : 102 ms QT Int : 450 ms P-R-T Axes : 052 -08 097 degrees QTc Int : 499 ms NORMAL SINUS RHYTHM POSSIBLE LEFT ATRIAL ENLARGEMENT LEFT VENTRICULAR HYPERTROPHY ABNORMAL QRS-T ANGLE, CONSIDER PRIMARY T WAVE ABNORMALITY PROLONGED QT ABNORMAL ECG WHEN COMPARED WITH ECG OF 03-DEC-2017 10:33, T WAVE INVERSION NO LONGER EVIDENT IN INFERIOR LEADS NONSPECIFIC T WAVE ABNORMALITY, IMPROVED IN ANTEROLATERAL LEADS Confirmed by MD CORNELIA, KRISTI ([id number]) on 03/10/2018 10:20:42 AM Referred By: Confirmed By:KRISTI LOCKE MD
[2018-03-10] MEDS ORDERED: PT OWN MED DRAWER 7, Y5N ONE ×2 (10:41→20:45)
[2018-03-10] MEDS: FOLIC ACID 1 MG TABLET (FP) PO SCH (10:44)
[2018-03-10] MEDS: hydrALAZINE HCL 50 MG TABLET (FP) PO SCH ×2 (10:44→21:00)
[2018-03-10] MEDS: PANTOPRAZOLE 40 MG TABLET (FP) PO SCH (10:44)
[2018-03-10] MEDS: HEPARIN NA (PORCINE) 5,000 UNITS/ML 1ML VIAL SQ SCH ×2 (10:45→21:11)
[2018-03-10 12:11] LABS: URINE APPEARANCE TURBID; URINE BILIRUBIN NEGATIVE (<2.0 mg/dL); URINE BLOOD 1+ (NEGATIVE); URINE COLOR YELLOW; URINE GLUCOSE (UA) NEGATIVE (NEGATIVE); URINE KETONE NEGATIVE (NEGATIVE); URINE NITRITE NEGATIVE (NEGATIVE); URINE UROBILINOGEN NEGATIVE mg/dL (0.2-1.0)
[2018-03-10 12:12] LABS: URINE LEUK ESTERASE 3+ (NEGATIVE); URINE PROTEIN 2+ (NEGATIVE)
[2018-03-10 12:15] LABS: EPI CELLS RARE /HPF (FEW); URINE BACTERIA RARE /hpf (NONE SEEN); URINE HYALINE CAST 9 /lpf
[2018-03-10 13:09] LABS: ANION GAP 11 (8-16); BLOOD UREA NITROGEN 66 mg/dL (7-18); CALCIUM 8.2 mg/dL (8.5-10.1); CHLORIDE 109 mmol/L (98-107); CO2 20 mmol/L (21-32); CREATININE 2.9 mg/dL (0.55-1.02); GLUCOSE,RANDOM 142 mg/dL (74-106); POTASSIUM 4.9 mmol/L (3.5-5.1); SODIUM 140 mmol/L (136-145)
--- NOTE | 2018-03-10 17:22 | CONSULT ---
Consult Consult Specialty:: Nephrology Reason for Consultation:: CKD and hyperkalemia - History of Present Illness Chief Complaint: sent in for hyperkalemia as outpt History of Present Illness: Pt is a 62 year old female with pmhx of HTN, HLD, CKD and DM who was sent in from her PMD for hyperkalemia. She says she feels well. She denies chest pain or shortness of breath. She denies palpitations. She is awake and alert. She denies dysuria or hematuria. She follows with Dr Kay and says that her last visit was about a month ago. She did have some nausea and vomiting over the last week. - History Source History Provided By: Patient - Past Medical History Cardio/Vascular: Yes: CHF, HTN, Hyperlipdemia, Pulmonary Hypertension Pulmonary: Yes: Asthma, Sleep Apnea (on BIPAP at night) Gastrointestinal: Yes: GI Bleed (see HPI), Other (had EGD and colono 12/31, ) Renal/: Yes: Renal Failure, Renal Inusuff, Other (hyperkalemia) ...LMP: 11/17/07 Endocrine: Yes: Diabetes Mellitus (uncontrolled) - Alcohol/Substance Use Hx Alcohol Use: No - Smoking History Smoking history: Current every day smoker Have you smoked in the past 12 months: Yes Aproximately how many cigarettes per day: 5 - Social History ADL: Independent History of Recent Travel: No Home Medications - Allergies Allergies/Adverse Reactions: Allergies Allergy/AdvReac Type Severity Reaction Status Date / Time No Known Allergies Allergy Verified 03/09/18 14:16 - Home Medications Home Medications: Ambulatory Orders hydrALAZINE HCL [Apresoline -] 50 mg PO BID #60 tablet 11/19/14 Folic Acid 1 mg PO DAILY 01/09/16 Atorvastatin Ca [Lipitor] 20 mg PO HS 11/25/16 Metoprolol Succinate [Toprol XL -] 50 mg PO DAILY #30 tablet 02/11/17 Alprazolam [Xanax] 0.5 mg PO HS 06/23/17 Fluticasone/Vilanterol [Breo Ellipta 100-25 Mcg INH] 1 each IH DAILY 11/28/17 Furosemide [Lasix -] 80 mg PO DAILY 11/28/17 Sodium Polystyrene Sulfon/Sorb [Sps 30 gm/120 ml Enema] 30 gm RC ASDIR 11/28/17 Family Disease History - Family Disease History Family History: Denies Review of Systems - Review of Systems Constitutional: reports: Malaise Eyes: reports: No Symptoms HENT: reports: No Symptoms Neck: reports: No Symptoms Cardiovascular: reports: No Symptoms Respiratory: reports: No Symptoms Gastrointestinal: reports: Nausea, Vomiting Genitourinary: reports: No Symptoms Musculoskeletal: reports: No Symptoms Integumentary: reports: No Symptoms Neurological: reports: No Symptoms Endocrine: reports: No Symptoms Hematology/Lymphatic: reports: No Symptoms Psychiatric: reports: No Symptoms Physical Exam Vital Signs: Vital Signs Temperature 97.7 F 03/10/18 15:02 Pulse Rate 76 03/10/18 15:02 Respiratory Rate 18 03/10/18 15:02 Blood Pressure 152/66 03/10/18 15:02 O2 Sat by Pulse Oximetry (%) 95 03/10/18 09:00 Constitutional: Yes: Calm Eyes: Yes: Conjunctiva Clear HENT: Yes: Atraumatic Neck: Yes: Supple Cardiovascular: Yes: S1, S2 Respiratory: Yes: CTA Bilaterally Gastrointestinal: Yes: Soft Renal/: Yes: WNL Musculoskeletal: Yes: WNL Extremities: Yes: WNL Edema: No Wound/Incision: Yes: Unapproximated Psychiatric: Yes: Oriented Labs: CBC, BMP 03/10/18 07:00 03/10/18 12:15 Laboratory Tests 03/08/17 06/21/17 07/08/17 06:00 22:58 12:20 WBC Hgb Plt Count Potassium Creatinine 2.9 H 2.2 H 2.1 H 11/30/17 12/01/17 12/03/17 18:55 06:20 05:25 WBC Hgb Plt Count Potassium Creatinine 2.6 H 2.5 H 2.6 H 03/09/18 03/09/18 03/10/18 15:20 15:20 07:00 WBC 4.4 D 5.9 D Hgb 9.7 L 8.7 L D Plt Count 226 198 Potassium 4.6 Creatinine 2.3 H 03/10/18 03/10/18 07:00 12:15 WBC Hgb Plt Count Potassium 5.0 4.9 Creatinine 3.0 H 2.9 H Imaging - Results Ultrasound: Report Reviewed Problem List - Problems (1) CKD (chronic kidney disease) Code(s): N18.9 - CHRONIC KIDNEY DISEASE, UNSPECIFIED (2) Benign hypertension Code(s): I10 - ESSENTIAL (PRIMARY) HYPERTENSION (3) CAD (coronary artery disease) Code(s): I25.10 - ATHSCL HEART DISEASE OF [place] CORONARY ARTERY W/O ANG PCTRS Qualifiers: Coronary Disease-Associated Artery/Lesion type: [place] coronary artery Associated angina: with other forms of angina pectoris (4) Smoker Code(s): F17.200 - NICOTINE DEPENDENCE, UNSPECIFIED, UNCOMPLICATED Assessment/Plan Current Medications Generic Name Dose Route Start Last Admin Trade Name Freq PRN Reason Stop Dose Admin Albuterol Sulfate 1 amp 03/09/18 20:00 03/10/18 15:20 Ventolin 0.083% Nebulizer Soln - NEB 1 amp RQID ALDO Administration Alprazolam 0.5 mg 03/09/18 22:00 03/09/18 21:41 Xanax - PO 0.5 mg HS ALDO Administration Atorvastatin Calcium 20 mg 03/09/18 22:00 03/09/18 21:41 Lipitor - PO 20 mg HS ALDO Administration Folic Acid 1 mg 03/10/18 10:00 03/10/18 10:44 Folic Acid - PO 1 mg DAILY ALDO Administration Furosemide 40 mg 03/10/18 06:00 03/10/18 13:51 Lasix Injection - IVPUSH 40 mg BID@0600,1400 ALDO Administration Heparin Sodium (Porcine) 5,000 unit 03/09/18 22:00 03/10/18 10:45 Heparin - SQ 5,000 unit BID ALDO Administration Hydralazine HCl 50 mg 03/09/18 22:00 03/10/18 10:44 Apresoline - PO 50 mg BID ALDO Administration Insulin Aspart 1 vial 03/09/18 22:00 03/10/18 12:08 Novolog Vial Sliding Scale - SQ Not Given ACHS ALDO Protocol Metoprolol Succinate 50 mg 03/10/18 10:00 03/10/18 10:45 Toprol Xl - PO 50 mg DAILY ALDO Administration Ondansetron HCl 4 mg 03/09/18 20:00 Zofran Injection IVPUSH Q6H PRN NAUSEA Pantoprazole Sodium 40 mg 03/10/18 10:00 03/10/18 10:44 Protonix - PO 40 mg DAILY ALDO Administration Impression 1. CKD 2. anemia 3. CHF 4. HTN 5. DM 6. hyperlipidemia 7. anxiety 8. uterine cancer 9. hx GI bleed 10. acute hyperkalemia 11. nausea and vomiting Plan - potassium is in normal range - renal function is above baseline - repeat labs in am - change lasix to PO - discussed low potassium diet Dr Moore
[2018-03-10] MEDS ORDERED: PRAMIPEXOLE DIHYDROCHLORIDE 0.25 MG TABLET PO ONE (19:45)
[2018-03-10] MEDS: ATORVASTATIN CA 20 MG TABLET (FP) PO SCH (21:00)
[2018-03-10] MEDS: ALPRAZolam 0.25 MG TABLET PO SCH (21:00)
[2018-03-11] MEDS ORDERED: ALBUTEROL SO4 0.083% IH SOL 2.5 MG/3 ML VIAL.NEB. NEB ONE (02:29)
[2018-03-11] MEDS ORDERED: INSULIN (NOVOLOG) ASPART 100 UNITS/ML 10ML VIAL ONE (05:42)
[2018-03-11] MEDS: FUROSEMIDE 40 MG TABLET (FP) PO SCH ×2 (06:27→13:42)
[2018-03-11] MEDS: INSULIN SLIDING SCALE (NOVOLOG) 1 VIAL SQ SCH ×2 (06:29→12:27)
[2018-03-11] MEDS: ALBUTEROL SO4 0.083% IH SOL 2.5 MG/3 ML VIAL.NEB. NEB SCH ×2 (08:06→11:44)
--- NOTE | 2018-03-11 08:30 | PN ---
Progress Note (short form) - Note Progress Note: Oncology Patient well known to me 62 year old female with multiple co-morbid medical problems. HBP, HLD,DM,ASHD,CHF, Sleep apnea,CKD, triple negative breast cancer, s/p lumpectomy /RT. Patient prsented with nausea, emesis, hyperkalemia. Hyperkalemia now improved. ROS Left temporal headach, no diplopia, no epistaxis, dysphagia, chest pain, some SOB, GERD present, no chest pain or palpitations, some recent nausea, emesis, no diarrhea, constipation, melena, hematochezia, no dysuria, hematuria, no vaginal bleeding, discharge, some paresthesias, no significant back pains Last Vital Signs Temp Pulse Resp BP Pulse Ox 98.6 F 77 20 126/54 95 03/11/18 06:00 03/11/18 06:00 03/11/18 06:00 03/11/18 06:00 03/10/18 21:00 HEENT: CHRIS, EOM Intact, mild proptosis Oropharynx: No thrush, No mucositis, upper and lower dentures Neck: Supple Nodes: Without adenopathy Breasts: s/p right lumpectomy with RT changes with induration and thickening, left breast without masses Cor: RSR, No murmurs, No gallops Lungs: Clear to P&A Abd: Soft, Normal bowel sounds, No organomegaly Ext:No significant edema Skin: No rashes, Integument intact CBC, BMP 03/10/18 07:00 03/10/18 12:15 Current Medications Generic Name Dose Route Start Last Admin Trade Name Lois PRN Reason Stop Dose Admin Albuterol Sulfate 1 amp 03/09/18 20:00 03/11/18 08:06 Ventolin 0.083% Nebulizer Soln - NEB 1 amp RQID ALDO Administration Alprazolam 0.5 mg 03/09/18 22:00 03/10/18 21:00 Xanax - PO 0.5 mg HS ALDO Administration Atorvastatin Calcium 20 mg 03/09/18 22:00 03/10/18 21:00 Lipitor - PO 20 mg HS ALDO Administration Folic Acid 1 mg 03/10/18 10:00 03/10/18 10:44 Folic Acid - PO 1 mg DAILY ALDO Administration Furosemide 40 mg 03/11/18 06:00 03/11/18 06:27 Lasix - PO 40 mg BID@0600,1400 ALDO Administration Heparin Sodium (Porcine) 5,000 unit 03/09/18 22:00 03/10/18 21:11 Heparin - SQ 5,000 unit BID ALDO Administration Hydralazine HCl 50 mg 03/09/18 22:00 03/10/18 21:00 Apresoline - PO 50 mg BID ALDO Administration Insulin Aspart 1 vial 03/09/18 22:00 03/11/18 06:29 Novolog Vial Sliding Scale - SQ Not Given [facility] Protocol Metoprolol Succinate 50 mg 03/10/18 10:00 03/10/18 10:45 Toprol Xl - PO 50 mg DAILY ALDO Administration Ondansetron HCl 4 mg 03/09/18 20:00 Zofran Injection IVPUSH Q6H PRN NAUSEA Pantoprazole Sodium 40 mg 03/10/18 10:00 03/10/18 10:44 Protonix - PO 40 mg DAILY ALDO Administration Impression: Hyperkalemia - improved Triple negative breast ca -s/p lumpectomy and RT CKD DM Anemia HBP CHF,Sleepapnea HLD Plan : Can see as outpatient and will need to begin therapy for breast ca-- s/p recent breast infection. [id number]- will need better diabetic management Anemia- chronic disease - to monitor check Fe++ studies --may be candidate for epo per renal protocol. .
[2018-03-11] MEDS: PANTOPRAZOLE 40 MG TABLET (FP) PO SCH (10:34)
[2018-03-11] MEDS: FOLIC ACID 1 MG TABLET (FP) PO SCH (10:34)
[2018-03-11] MEDS: HEPARIN NA (PORCINE) 5,000 UNITS/ML 1ML VIAL SQ SCH (10:34)
[2018-03-11] MEDS: hydrALAZINE HCL 50 MG TABLET (FP) PO SCH (10:34)
--- NOTE | 2018-03-11 10:36 | DS ---
Physical Examination Vital Signs: Vital Signs Temperature 98.6 F 03/11/18 06:00 Pulse Rate 77 03/11/18 06:00 Respiratory Rate 20 03/11/18 06:00 Blood Pressure 126/54 03/11/18 06:00 O2 Sat by Pulse Oximetry (%) 95 03/10/18 21:00 Findings/Remarks: 3 EPISODES NON-BLOODY DIARRHEA NO FEVER COMFORTABLE Constitutional: Yes: No Distress Eyes: Yes: WNL HENT: Yes: WNL Neck: Yes: WNL Cardiovascular: Yes: WNL Respiratory: Yes: WNL Gastrointestinal: Yes: WNL Renal/: Yes: WNL Musculoskeletal: Yes: WNL Edema: Yes Peripheral Pulses WNL: Yes Integumentary: Yes: WNL Wound/Incision: Yes: Clean/Dry Neurological: Yes: WNL ...Motor Strength: WNL Psychiatric: Yes: WNL Labs: CBC, BMP 03/10/18 07:00 03/10/18 12:15 Discharge Summary Reason For Visit: LIGHTHEADNESS,CHRONIC KIDNEY DISEASE Current Active Problems CKD (chronic kidney disease) (Acute) CKD (chronic kidney disease) stage 3, GFR 30-59 ml/min (Acute) Lightheadedness (Acute) Procedures: [facility] Course: ADMITTED ACUTE ON CHRONIC RENAL FAILURE WITH HYPERKALEMIA, DIARRHEA, CHECK LABS , CHECK STOOL FOR C.DIFF F/U OUTPATIENT IN 2 DAYS FOR LABS Condition: Stable - Instructions Diet, Activity, Other Instructions: DIEATARY CONSULT ORDERED NOW PRIOR TO DISCHARGE HOME LOW POTASSIUM/RENAL DIET/ADA SEE DR GUTIERREZ IN 2 DAYS FOR LABS Referrals: Anyi Gutierrez MD [Primary Care Provider] - Disposition: HOME - Home Medications Comprehensive Discharge Medication List: Ambulatory Orders hydrALAZINE HCL [Apresoline -] 50 mg PO BID #60 tablet 11/19/14 Alprazolam [Xanax] 0.5 mg PO HS 06/23/17 Fluticasone/Vilanterol [Breo Ellipta 100-25 Mcg INH] 1 each IH DAILY 11/28/17 Sodium Polystyrene Sulfon/Sorb [Sps 30 gm/120 ml Enema] 30 gm RC ASDIR 11/28/17 Atorvastatin Ca [Lipitor] 20 mg PO HS #30 tab 03/11/18 Folic Acid 1 mg PO DAILY #30 tab 03/11/18 Furosemide [Lasix -] 40 mg PO BID@0600,1400 #60 tablet 03/11/18 Metoprolol Succinate [Toprol XL -] 50 mg PO DAILY #30 tablet 03/11/18
--- NOTE | 2018-03-11 12:50 | PN ---
Progress Note, Physician History of Present Illness: Pt seen and examined at bedside. She is awake and alert. She denies shortness of breath. - Current Medication List Current Medications: Active Medications Albuterol Sulfate (Ventolin 0.083% Nebulizer Soln -) 1 amp NEB RQID [facility] Last Admin: 03/11/18 11:44 Dose: 1 amp Alprazolam (Xanax -) 0.5 mg PO HS [facility] Last Admin: 03/10/18 21:00 Dose: 0.5 mg Atorvastatin Calcium (Lipitor -) 20 mg PO HS [facility] Last Admin: 03/10/18 21:00 Dose: 20 mg Folic Acid (Folic Acid -) 1 mg PO DAILY [facility] Last Admin: 03/11/18 10:34 Dose: 1 mg Furosemide (Lasix -) 40 mg PO BID@0600,1400 [facility] Last Admin: 03/11/18 06:27 Dose: 40 mg Heparin Sodium (Porcine) (Heparin -) 5,000 unit SQ BID [facility] Last Admin: 03/11/18 10:34 Dose: 5,000 unit Hydralazine HCl (Apresoline -) 50 mg PO BID [facility] Last Admin: 03/11/18 10:34 Dose: 50 mg Insulin Aspart (Novolog Vial Sliding Scale -) 1 vial SQ ACHS [facility] PRN Reason: Protocol Last Admin: 03/11/18 12:27 Dose: 2 units Metoprolol Succinate (Toprol Xl -) 50 mg PO DAILY [facility] Last Admin: 03/11/18 10:34 Dose: 50 mg Ondansetron HCl (Zofran Injection) 4 mg IVPUSH Q6H PRN PRN Reason: NAUSEA Pantoprazole Sodium (Protonix -) 40 mg PO DAILY [facility] Last Admin: 03/11/18 10:34 Dose: 40 mg - Objective Vital Signs: Vital Signs Temperature 98.6 F 03/11/18 06:00 Pulse Rate 77 03/11/18 06:00 Respiratory Rate 20 03/11/18 06:00 Blood Pressure 126/54 03/11/18 06:00 O2 Sat by Pulse Oximetry (%) 95 03/10/18 21:00 Constitutional: Yes: Calm Eyes: Yes: Conjunctiva Clear HENT: Yes: Atraumatic Cardiovascular: Yes: S1, S2 Respiratory: Yes: CTA Bilaterally Gastrointestinal: Yes: Soft Genitourinary: Yes: WNL Musculoskeletal: Yes: WNL Edema: No Neurological: Yes: Oriented Psychiatric: Yes: Oriented Labs: CBC, BMP 03/10/18 07:00 03/10/18 12:15 Problem List - Problems (1) CKD (chronic kidney disease) Code(s): N18.9 - CHRONIC KIDNEY DISEASE, UNSPECIFIED (2) Benign hypertension Code(s): I10 - ESSENTIAL (PRIMARY) HYPERTENSION (3) CAD (coronary artery disease) Code(s): I25.10 - ATHSCL HEART DISEASE OF [place] CORONARY ARTERY W/O ANG PCTRS Qualifiers: Coronary Disease-Associated Artery/Lesion type: ewiiaapaayp coronary artery Associated angina: with other forms of angina pectoris (4) Smoker Code(s): F17.200 - NICOTINE DEPENDENCE, UNSPECIFIED, UNCOMPLICATED Assessment/Plan Current Medications Generic Name Dose Route Start Last Admin Trade Name Freq PRN Reason Stop Dose Admin Albuterol Sulfate 1 amp 03/09/18 20:00 03/11/18 11:44 Ventolin 0.083% Nebulizer Soln - NEB 1 amp RQID ALDO Administration Alprazolam 0.5 mg 03/09/18 22:00 03/10/18 21:00 Xanax - PO 0.5 mg HS ALDO Administration Atorvastatin Calcium 20 mg 03/09/18 22:00 03/10/18 21:00 Lipitor - PO 20 mg HS ALDO Administration Folic Acid 1 mg 03/10/18 10:00 03/11/18 10:34 Folic Acid - PO 1 mg DAILY ALDO Administration Furosemide 40 mg 03/11/18 06:00 03/11/18 06:27 Lasix - PO 40 mg BID@0600,1400 ALDO Administration Heparin Sodium (Porcine) 5,000 unit 03/09/18 22:00 03/11/18 10:34 Heparin - SQ 5,000 unit BID ALDO Administration Hydralazine HCl 50 mg 03/09/18 22:00 03/11/18 10:34 Apresoline - PO 50 mg BID ALDO Administration Insulin Aspart 1 vial 03/09/18 22:00 03/11/18 12:27 Novolog Vial Sliding Scale - SQ 2 units ACHS ALDO Administration Protocol Metoprolol Succinate 50 mg 03/10/18 10:00 03/11/18 10:34 Toprol Xl - PO 50 mg DAILY ALDO Administration Ondansetron HCl 4 mg 03/09/18 20:00 Zofran Injection IVPUSH Q6H PRN NAUSEA Pantoprazole Sodium 40 mg 03/10/18 10:00 03/11/18 10:34 Protonix - PO 40 mg DAILY ALDO Administration Impression 1. CKD 2. anemia 3. CHF 4. HTN 5. DM 6. hyperlipidemia 7. anxiety 8. uterine cancer 9. hx GI bleed 10. acute hyperkalemia 11. nausea and vomiting Plan - no new labs - pt will follow with Dr Kay - cont PO lasix with monitoring of volume status and renal function - again discussed low potassium diet - pt understands plan Dr Moore
[2018-03-11 13:47] VITALS: BP 140/63; PULSE 76; TEMP 98.3
== END 2018-03-11 13:57 | disposition home or self-care (01) | DRG 683 ==
LOC: JER 14:13 → JERBED 16:20 → OBSVTOIN 18:24 → J5S 18:40
PROVIDERS: ADMIT Family Medicine; ATTEND Family Medicine
DX: N17.9 Acute kidney failure, unspecified (principal); I25.110 Atherosclerotic heart disease of native coronary artery with unstable angina pectoris; I13.0 Hypertensive heart and chronic kidney disease with heart failure and stage 1 through stage 4 chronic kidney disease, or unspecified chronic kidney disease; E11.22 Type 2 diabetes mellitus with diabetic chronic kidney disease; N18.3 Chronic kidney disease, stage 3 (moderate); E11.65 Type 2 diabetes mellitus with hyperglycemia; E87.5 Hyperkalemia; E78.5 Hyperlipidemia, unspecified; J45.909 Unspecified asthma, uncomplicated; G47.30 Sleep apnea, unspecified; F17.200 Nicotine dependence, unspecified, uncomplicated; R42 Dizziness and giddiness; I27.20 Pulmonary hypertension, unspecified; D63.8 Anemia in other chronic diseases classified elsewhere; R19.7 Diarrhea, unspecified; F41.9 Anxiety disorder, unspecified; R11.2 Nausea with vomiting, unspecified; Z85.42 Personal history of malignant neoplasm of other parts of uterus
CPT/HCPCS: 36415; 76700-TC; 80048; 80053; 81003; 81015; 82962; 83036; 83735; 83880; 84100; 84484; 85025; 93005; 93010; 94640; 99282-25; G0378; J1644; J7030

== ENCOUNTER 2018-04-01 07:41 | Day surgery (SDC) | payer OTHER ==
[2018-04-01] MEDS ORDERED: SODIUM CHLORIDE 250 ML IV ONE ×2 (08:00→10:30)
[2018-04-01] MEDS ORDERED: FOSAPREPITANT DIMEGLUMINE 150 MG in SODIUM CHLORIDE 145 ML IVPB ONE (08:30)
[2018-04-01] MEDS ORDERED: DEXAMETHASONE INJECTION 20 MG in SODIUM CHLORIDE 50 ML IVPB ONE (08:30)
[2018-04-01] MEDS ORDERED: PALONOSETRON HCL 0.25 MG/5 ML VIAL IVPUSH ONE (08:30)
[2018-04-01] MEDS ORDERED: DOCETAXEL IV ONE (09:00)
[2018-04-01] MEDS ORDERED: SODIUM CHLORIDE IV ONE (09:00)
[2018-04-01] MEDS ORDERED: CYCLOPHOSPHAMIDE IVPB ONE (10:00)
[2018-04-01] MEDS ORDERED: SODIUM CHLORIDE IVPB ONE (10:00)
[2018-04-01 10:28] VITALS: TEMP 98.2
[2018-04-01 10:49] LABS: BASO % 0.6 % (0-2.0); EOS % 2.1 % (0-4.5); HEMATOCRIT 27.8 % (32.4-45.2); HEMOGLOBIN 8.8 GM/dL (10.7-15.3); LYMPH % 11.6 % (8-40); MCH 28.8 pg (25.7-33.7); MCHC 31.8 g/dl (32.0-36.0); MEAN CELL VOLUME 90.6 fl (80-96); MEAN PLT VOLUME 8.7 fl (7.5-11.1); NEUT % 71.7 % (42.8-82.8); PLATELET COUNT 254 K/MM3 (134-434); RBC 3.07 M/mm3 (3.60-5.2); RDW 16.9 % (11.6-15.6); WHITE BLOOD COUNT 6.2 K/mm3 (4.0-10.0)
[2018-04-01 11:42] LABS: ALBUMIN 3.1 g/dl (3.4-5.0); ANION GAP 7 (8-16); BLOOD UREA NITROGEN 89 mg/dL (7-18); CALCIUM 8.3 mg/dL (8.5-10.1); CHLORIDE 112 mmol/L (98-107); CO2 21 mmol/L (21-32); GLUCOSE,RANDOM 122 mg/dL (74-106); POTASSIUM 5.7 mmol/L (3.5-5.1); SODIUM 140 mmol/L (136-145)
[2018-04-01 11:48] LABS: ALK PHOS 231 U/L (45-117); BILIRUBIN,DIRECT 0.2 mg/dL (0.0-0.2); BILIRUBIN,TOTAL 0.7 mg/dL (0.2-1.0); CREATININE 3.1 mg/dL (0.55-1.02); SGOT/AST 21 U/L (15-37); SGPT/ALT 21 U/L (12-78); TOT PROT 7.4 g/dl (6.4-8.2)
[2018-04-01] MEDS ORDERED: SODIUM POLYSTYRENE SULFONATE 15 GM/60 ML BOTTLE PO ONE (14:15)
[2018-04-01] MEDS ORDERED: PORTA CATH FLUSH 10 ML IVPUSH ONE (17:00)
[2018-04-01] MEDS ORDERED: SODIUM POLYSTYRENE SULFONATE 15 GM/60 ML BOTTLE ONE ×2 (17:01→17:07)
[2018-04-01 17:31] VITALS: BP 165/86; PULSE 74
== END 2018-04-01 18:27 | disposition home or self-care (01) ==
LOC: JONCCHEMO 07:41 → J7W 15:39 → JONCCHEMO 18:27
PROVIDERS: ATTEND Internal Medicine Hematology & Oncology
PROC: 3E04305 Introduction of Other Antineoplastic into Central Vein, Percutaneous Approach (ICD-10-PCS; principal; 2018-04-01)
PROC: 3E043GC Introduction of Other Therapeutic Substance into Central Vein, Percutaneous Approach (ICD-10-PCS; 2018-04-01)
PROC: 3E0437Z Introduction of Electrolytic and Water Balance Substance into Central Vein, Percutaneous Approach (ICD-10-PCS; 2018-04-01)
DX: Z51.11 Encounter for antineoplastic chemotherapy (principal); C50.911 Malignant neoplasm of unspecified site of right female breast; E11.22 Type 2 diabetes mellitus with diabetic chronic kidney disease; I12.9 Hypertensive chronic kidney disease with stage 1 through stage 4 chronic kidney disease, or unspecified chronic kidney disease; N18.4 Chronic kidney disease, stage 4 (severe); I50.9 Heart failure, unspecified; I25.10 Atherosclerotic heart disease of native coronary artery without angina pectoris; J43.9 Emphysema, unspecified; G47.30 Sleep apnea, unspecified; Z85.41 Personal history of malignant neoplasm of cervix uteri
CPT/HCPCS: 36415; 80053; 80076; 82378; 82962; 83735; 85025; 86300; 96361; 96367; 96375; 96413; 96415; J1100; J1453; J2469; J9070; J9171

== ENCOUNTER 2018-04-02 07:26 | Day surgery (SDC) | payer OTHER ==
[2018-04-02] MEDS ORDERED: PEGFILGRASTIM 6 MG/0.6 ML DISP.SYRIN SQ ONE (08:00)
[2018-04-02] MEDS ORDERED: IRON SUCROSE INJECTION 200 MG in SODIUM CHLORIDE 100 ML IVPB ONE (10:00)
[2018-04-02] MEDS ORDERED: SODIUM CHLORIDE 250 ML IV ONE (14:45)
[2018-04-02 15:27] LABS: ANION GAP 10 (8-16); BLOOD UREA NITROGEN 84 mg/dL (7-18); CALCIUM 7.5 mg/dL (8.5-10.1); CHLORIDE 108 mmol/L (98-107); CO2 20 mmol/L (21-32); CREATININE 2.7 mg/dL (0.55-1.02); POTASSIUM 4.9 mmol/L (3.5-5.1); SODIUM 138 mmol/L (136-145)
[2018-04-02 15:42] LABS: GLUCOSE,RANDOM 341 mg/dL (74-106)
[2018-04-02 17:08] VITALS: TEMP 98.1
[2018-04-02] MEDS ORDERED: PORTA CATH FLUSH 10 ML IVPUSH ONE (17:08)
[2018-04-02 17:14] VITALS: BP 175/94; PULSE 84
== END 2018-04-02 16:30 | disposition home or self-care (01) ==
LOC: JONCCHEMO 07:26 → J7W 16:33
PROVIDERS: ATTEND Internal Medicine Hematology & Oncology
PROC: 3E033GC Introduction of Other Therapeutic Substance into Peripheral Vein, Percutaneous Approach (ICD-10-PCS; principal; 2018-04-02)
PROC: 3E0337Z Introduction of Electrolytic and Water Balance Substance into Peripheral Vein, Percutaneous Approach (ICD-10-PCS; 2018-04-02)
PROC: 3E013GC Introduction of Other Therapeutic Substance into Subcutaneous Tissue, Percutaneous Approach (ICD-10-PCS; 2018-04-02)
DX: C50.911 Malignant neoplasm of unspecified site of right female breast (principal); E11.22 Type 2 diabetes mellitus with diabetic chronic kidney disease; I12.9 Hypertensive chronic kidney disease with stage 1 through stage 4 chronic kidney disease, or unspecified chronic kidney disease; N18.4 Chronic kidney disease, stage 4 (severe); I50.9 Heart failure, unspecified; I25.10 Atherosclerotic heart disease of native coronary artery without angina pectoris; Z85.41 Personal history of malignant neoplasm of cervix uteri; J43.9 Emphysema, unspecified; G47.30 Sleep apnea, unspecified
CPT/HCPCS: 36415; 80048; 96361; 96365; 96372; 96417; J1756; J2505

== ENCOUNTER 2018-04-02 23:02 | Inpatient (IN) | payer OTHER ==
--- NOTE | 2018-04-02 23:49 | PDOC ---
History of Present Illness - General History Source: Patient, Old Records Exam Limitations: No Limitations - History of Present Illness Initial Comments: 04/03/18 00:13 The patient is a 62 year old female with a past medical history of breast cancer , HTN, CHF, COPD, HLD, DM, and CKD who presents to the emergency department today with high blood pressure, bilateral leg edema and shortness of breath today. The patient states that she went to her surveillance analyst today and her blood pressure was noted to be high. The patient also had chemotherapy today and reports feeling weak. She denies any abnormal bowel movements. <Aaron Russell - Last Filed: 04/03/18 00:13> <Joya Pedersen - Last Filed: 04/03/18 01:56> - General Chief Complaint: Shortness of Breath Stated Complaint: SHORTNESS OF BREATH Time Seen by Provider: 04/02/18 23:37 Past History <Aaron Russell - Last Filed: 04/03/18 00:13> - Past Medical History Anemia: Yes Asthma: Yes Cancer: Yes (Uterine Ca - 2007,rt breast ca,) Cardiac Disorders: Yes (Systolic cardiomyopathy, CAD, PAD) CVA: No COPD: No CHF: Yes Dementia: No Diabetes: Yes GI Disorders: Yes (Colon polyps) Disorders: Yes HTN: Yes Hypercholesterolemia: Yes Kidney Stones: Yes (CKD) Liver Disease: No Seizures: No Thyroid Disease: No - Surgical History Abdominal Surgery: No Appendectomy: No Cardiac Surgery: No Cholecystectomy: No Lung Surgery: No Neurologic Surgery: No Orthopedic Surgery: No - Family Disease History Family Disease History: Other: Father (kidney disease), Brother (kidney disease) - Immunization History Immunization Up to Date: Yes - Suicide/Smoking/Psychosocial Hx Smoking Status: Yes Smoking History: Never smoked Years of Tobacco Use: 31 Have you smoked in the past 12 months: No Number of Cigarettes Smoked Daily: 5 Information on smoking cessation initiated: No 'Breaking Loose' booklet given: 03/09/18 Hx Alcohol Use: No Drug/Substance Use Hx: No Substance Use Type: None Hx Substance Use Treatment: No <Joya Pedersen - Last Filed: 04/03/18 01:56> - Past Medical History Allergies/Adverse Reactions: Allergies Allergy/AdvReac Type Severity Reaction Status Date / Time No Known Allergies Allergy Verified 04/02/18 23:25 Home Medications: Ambulatory Orders hydrALAZINE HCL [Apresoline -] 50 mg PO BID #60 tablet 11/19/14 Alprazolam [Xanax] 0.5 mg PO HS 06/23/17 Fluticasone/Vilanterol [Breo Ellipta 100-25 Mcg INH] 1 each IH DAILY 11/28/17 Sodium Polystyrene Sulfon/Sorb [Sps 30 gm/120 ml Enema] 30 gm RC ASDIR 11/28/17 Atorvastatin Ca [Lipitor] 20 mg PO HS #30 tab 03/11/18 Folic Acid 1 mg PO DAILY #30 tab 03/11/18 Furosemide [Lasix -] 40 mg PO BID@0600,1400 #60 tablet 03/11/18 Metoprolol Succinate [Toprol XL -] 50 mg PO DAILY #30 tablet 03/11/18 Review of Systems - Review of Systems Able to Perform ROS?: Yes Comments:: 04/03/18 00:13 GENERAL/CONSTITUTIONAL: No fever or chills. (+) Weakness. HEAD, EYES, EARS, NOSE AND THROAT: No change in vision. No ear pain or discharge. No sore throat. GASTROINTESTINAL: No nausea, vomiting, diarrhea or constipation. GENITOURINARY: No dysuria, frequency, or change in urination. CARDIOVASCULAR: (+) Shortness of breath. RESPIRATORY: No cough, wheezing, or hemoptysis. MUSCULOSKELETAL: Bilateral leg edema. No neck or back pain. SKIN: No rash NEUROLOGIC: No headache, vertigo, loss of consciousness, or change in strength/ sensation. ENDOCRINE: No increased thirst. No abnormal weight change. HEMATOLOGIC/LYMPHATIC: No anemia, easy bleeding, or history of blood clots. ALLERGIC/IMMUNOLOGIC: No hives or skin allergy. <Aaron Russell - Last Filed: 04/03/18 00:13> *Physical Exam - Vital Signs Last Vital Signs Temp Pulse Resp BP Pulse Ox 97.4 F L 86 22 171/74 97 04/02/18 23:25 04/02/18 23:25 04/02/18 23:25 04/02/18 23:25 04/02/18 23:25 - Physical Exam Comments: 04/03/18 00:13 GENERAL: Awake, alert, and fully oriented, in no acute distress HEAD: No signs of trauma EYES: PERRLA, EOMI, sclera anicteric, conjunctiva clear ENT: Auricles normal inspection, hearing grossly normal, nares patent, oropharynx clear without exudates. Moist mucosa NECK: Normal ROM, supple, no lymphadenopathy, JVD, or masses LUNGS: Typicnic, very diminished breath sounds, conversational dyspnea, short of breath HEART: Regular rate and rhythm, normal S1 and S2, no murmurs, rubs or gallops ABDOMEN: (+) Obese, Soft, nontender, normoactive bowel sounds. No guarding, no rebound. No masses EXTREMITIES: Normal range of motion, (+) 2+ pitting edema bilaterally. No clubbing or cyanosis. No cords, erythema, or tenderness NEUROLOGICAL: Cranial nerves II through XII grossly intact. Normal speech, normal gait SKIN: Warm, Dry, normal turgor, no rashes or lesions noted. <Aaron Russell - Last Filed: 04/03/18 00:13> - Vital Signs Last Vital Signs Temp Pulse Resp BP Pulse Ox 97.4 F L 86 22 171/74 97 04/02/18 23:25 04/02/18 23:25 04/02/18 23:25 04/02/18 23:25 04/02/18 23:25 <Joya Pedersen - Last Filed: 04/03/18 01:56> Heart Score/ECG Review - ECG Intrepretation Comment:: 04/03/18 01:20 sinus at 80, nl axis, nl interval, t wave inversions I, avl, qtc prolongation <Joya Pedersen - Last Filed: 04/03/18 01:56> ED Treatment Course - LABORATORY CBC & Chemistry Diagram: 04/03/18 00:10 04/03/18 00:10 <Joya Pedersen - Last Filed: 04/03/18 01:56> Medical Decision Making - Medical Decision Making 04/03/18 00:06 a/p: 62yo female with hx of COPD and CHF -elevated bp, LE swelling -seen by BINH today and wanted her to be seen again tomorrow for a bp check -worsening LE swelling and SOB -unable to lay flat, however dimished BS as well -received chemo yesterday, iron and neupogen today will check labs, cxr, vbg -will give lasix iv along with albuterol -will most likely need obs vs admission for chf/copd exacerbation 04/03/18 01:21 pt with elevated WBC received neupogen feels better after neb ambulatory in the ED with a steady gait 04/03/18 01:55 case discussed with Shakira from [facility] - accepts pt to service <Joya Pedersen - Last Filed: 04/03/18 01:56> *DC/Admit/Observation/Transfer - Attestations Scribe Attestion: 04/03/18 00:14 Documentation prepared by Aaron Russell, acting as biomedical electronics technician for Joya Pedersen DO. <Aaron Russell - Last Filed: 04/03/18 00:13> - Discharge Dispostion Decision to Admit order: Yes - Attestations Physician Attestion: 04/03/18 01:56 I, Dr. Joya Pedersen, DO, attest that this document has been prepared under my direction and personally reviewed by me in its entirety. I further attest, that it accurately reflects all work, treatment, procedures and medical decision -making performed by me. <Joya Pedersen - Last Filed: 04/03/18 01:56> Diagnosis at time of Disposition: CKD (chronic kidney disease), COPD exacerbation, [id number] respiratory failure, Acute CHF (congestive heart failure) - Discharge Dispostion Condition at time of disposition: Fair - Referrals Referrals: Anyi Mcgrath MD [Primary Care Provider] - - Patient Instructions - Post Discharge Activity
[2018-04-02] MEDS ORDERED: FUROSEMIDE 40 MG/4 ML INJECTABLE VIAL IVPUSH ONE (23:50)
[2018-04-02] MEDS ORDERED: ALBUTEROL SO4 2.5/IPRATROPIUM 0.5 INH SOL 3 ML VIAL.NEB. NEB ONE ×2 (23:50→23:57)
[2018-04-03] MEDS ORDERED: FUROSEMIDE 40 MG/4 ML INJECTABLE VIAL ONE (00:14)
[2018-04-03 00:31] LABS: HEMOGLOBIN 8.5 GM/dL (10.7-15.3); MCH 27.7 pg (25.7-33.7); MCHC 30.2 g/dl (32.0-36.0); MEAN CELL VOLUME 91.7 fl (80-96); MEAN PLT VOLUME 10.1 fl (7.5-11.1); PLATELET COUNT 236 K/MM3 (134-434); RBC 3.06 M/mm3 (3.60-5.2); RDW 17.4 % (11.6-15.6)
[2018-04-03] MEDS ORDERED: PRAMIPEXOLE DIHYDROCHLORIDE 0.25 MG TABLET PO ONE (00:31)
[2018-04-03 00:36] LABS: VENOUS PC02 37.7 mmHg (38-52); VENOUS PO2 43.2 mmHg (28-48)
[2018-04-03 00:37] LABS: VENOUS PH 7.24 (7.32-7.42)
[2018-04-03 00:38] LABS: WHITE BLOOD COUNT 30.7 K/mm3 (4.0-10.0)
[2018-04-03 00:50] LABS: INR 1.14 (0.82-1.09); PROTHROMBIN TIME (PATIENT) 12.9 SEC (9.7-13.0)
[2018-04-03 00:53] LABS: ACTIVATED PTT 33.2 SECONDS (26.9-34.4)
[2018-04-03 01:20] LABS: ALBUMIN 3.3 g/dl (3.4-5.0); ANION GAP 15 (8-16); BILIRUBIN,TOTAL 0.4 mg/dL (0.2-1.0); BLOOD UREA NITROGEN 82 mg/dL (7-18); CALCIUM 7.3 mg/dL (8.5-10.1); CHLORIDE 108 mmol/L (98-107); CO2 16 mmol/L (21-32); CREATININE 2.9 mg/dL (0.55-1.02); MAGNESIUM 1.7 mg/dL (1.8-2.4); POTASSIUM 4.4 mmol/L (3.5-5.1); SGOT/AST 31 U/L (15-37); SGPT/ALT 28 U/L (12-78); SODIUM 139 mmol/L (136-145); TOT PROT 7.7 g/dl (6.4-8.2)
[2018-04-03 01:22] LABS: ALK PHOS 254 U/L (45-117)
[2018-04-03 01:24] LABS: GLUCOSE,RANDOM 309 mg/dL (74-106)
[2018-04-03] MEDS ORDERED: MAGNESIUM SULF 50% (8.12 MEQ/2 ML-1 GM VIAL) IVPB ONE (01:27)
[2018-04-03] MEDS ORDERED: methylPREDNISolone NA SUCC 125 MG/2 ML VIAL IVPB ONE (01:29)
[2018-04-03] MEDS ORDERED: ALBUTEROL SO4 2.5/IPRATROPIUM 0.5 INH SOL 3 ML VIAL.NEB. NEB ONE ×2 (01:29→01:44)
[2018-04-03] MEDS ORDERED: methylPREDNISolone NA SUCC 125 MG/2 ML VIAL ONE (01:44)
[2018-04-03] MEDS ORDERED: MAGNESIUM SULF 50% (8.12 MEQ/2 ML-1 GM VIAL) ONE (01:44)
--- NOTE | 2018-04-03 01:49 | HP ---
CHIEF COMPLAINT: SOB, Lower Extremity Swelling PCP: Dr. Mcgrath HISTORY OF PRESENT ILLNESS: This is a 62 y/o woman with a PMH of T2 N1 Triple Negative Breast Ca (on Taxotere, Cytoxan), CAD, CHF, COPD, Emphysema, HTN, HLD, CKD, PARVEZ. Who presents to the ED with SOB and lower extremity edema. 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 The patient also had chemotherapy today and recent iron infusion. and reports feeling weak. She denies any abnormal bowel movements. Patient denies fever, chills, CP , AP, N/V, dysuria. ER course was notable for: (1) Chest Xray- Large heart no acute chest pathology (2) Glucose: 309 (3) WBC 30.7 Recent Travel: None PAST MEDICAL HISTORY: See HPI PAST SURGICAL HISTORY: Hysterectomy Social History: Smoking: Current Smoker, 1/2 PPD, x 45 yrs Alcohol: None Drugs: None Independent Family History: Allergies No Known Allergies Allergy (Verified 04/02/18 23:25) HOME MEDICATIONS: Home Medications Medication Instructions Recorded hydrALAZINE HCL [Apresoline -] 50 mg PO BID #60 tablet 11/19/14 Alprazolam [Xanax] 0.5 mg PO HS 06/23/17 Fluticasone/Vilanterol [Breo 1 each IH DAILY 11/28/17 Ellipta 100-25 Mcg INH] Sodium Polystyrene Sulfon/Sorb 30 gm RC ASDIR 11/28/17 [Sps 30 gm/120 ml Enema] Atorvastatin Ca [Lipitor] 20 mg PO HS #30 tab 03/11/18 Folic Acid 1 mg PO DAILY #30 tab 03/11/18 Furosemide [Lasix -] 40 mg PO BID@0600,1400 #60 tablet 03/11/18 Metoprolol Succinate [Toprol XL -] 50 mg PO DAILY #30 tablet 03/11/18 REVIEW OF SYSTEMS CONSTITUTIONAL: Absent: fever, chills, diaphoresis, generalized weakness, malaise, loss of appetite, weight change HEENT: Absent: rhinorrhea, nasal congestion, throat pain, throat swelling, difficulty swallowing, mouth swelling, ear pain, eye pain, visual changes CARDIOVASCULAR: peripheral edema Absent: chest pain, syncope, palpitations, irregular heart rate, lightheadedness RESPIRATORY: shortness of breath Absent: cough, dyspnea with exertion, orthopnea, wheezing, stridor, hemoptysis GASTROINTESTINAL: Absent: abdominal pain, abdominal distension, nausea, vomiting, diarrhea, constipation, melena, hematochezia GENITOURINARY: Absent: dysuria, frequency, urgency, hesitancy, hematuria, flank pain, genital pain MUSCULOSKELETAL: myalgia, arthralgia, Absent: joint swelling, back pain, neck pain SKIN: Absent: rash, itching, pallor HEMATOLOGIC/IMMUNOLOGIC: Absent: easy bleeding, easy bruising, lymphadenopathy, frequent infections ENDOCRINE: Absent: unexplained weight gain, unexplained weight loss, heat intolerance, cold intolerance NEUROLOGIC: Absent: headache, focal weakness or paresthesias, dizziness, unsteady gait, seizure, mental status changes, bladder or bowel incontinence PSYCHIATRIC: Absent: anxiety, depression, suicidal or homicidal ideation, hallucinations. PHYSICAL EXAMINATION Vital Signs - 24 hr 04/02/18 23:25 Temperature 97.4 F L Pulse Rate 86 Respiratory 22 Rate Blood Pressure 171/74 O2 Sat by Pulse 97 Oximetry (%) GENERAL: Awake, alert, and fully oriented, in no acute distress. HEAD: Normal with no signs of trauma. EYES: Pupils equal, round and reactive to light, extraocular movements intact, sclera anicteric, conjunctiva clear. No lid lag. EARS, NOSE, THROAT: Ears normal, nares patent, oropharynx clear without exudates. Moist mucous membranes. NECK: Normal range of motion, supple without lymphadenopathy, JVD, or masses. LUNGS: Breath sounds scattered diffuse crackles, diminish to bases. No accessory muscle use. HEART: Regular rate and rhythm, normal S1 and S2 without murmur, rub or gallop. ABDOMEN: Soft, nontender, not distended, normoactive bowel sounds, no guarding, no rebound, no masses. No hepatomegaly or splenomegaly. MUSCULOSKELETAL: Normal range of motion at all joints. No bony deformities or tenderness. No CVA tenderness. UPPER EXTREMITIES: 2+ pulses, warm, well-perfused. No cyanosis. No clubbing. No peripheral edema. LOWER EXTREMITIES: 2+ pulses, warm, well-perfused. No calf tenderness. B/L +1 pitting peripheral edema. NEUROLOGICAL: Cranial nerves II-XII intact. Normal speech. Gait not observed. PSYCHIATRIC: Cooperative. Good eye contact. Appropriate mood and affect. SKIN: Warm, dry, normal turgor, no rashes or lesions noted, normal capillary refill. Laboratory Results - last 24 hr 04/03/18 04/03/18 04/03/18 00:10 00:10 00:10 WBC RBC Hgb Hct MCV MCH MCHC RDW Plt Count MPV Neutrophils % Lymphocytes % PT with INR 12.90 INR 1.14 PTT (Actin FS) 33.2 VBG pH 7.24 L* POC VBG pCO2 37.7 L POC VBG pO2 43.2 Mixed VBG HCO3 15.5 L Sodium 139 Potassium 4.4 Chloride 108 H Carbon Dioxide 16 L Anion Gap 15 BUN 82 H Creatinine 2.9 H Creat Clearance w eGFR 16.44 Random Glucose 309 H* Lactic Acid Calcium 7.3 L Magnesium 1.7 L Total Bilirubin 0.4 D AST 31 ALT 28 Alkaline Phosphatase 254 H Creatine Kinase 283 H Creatine Kinase Index 4.6 CK-MB (CK-2) 13.194 H Troponin I 0.04 B-Natriuretic Peptide Total Protein 7.7 Albumin 3.3 L 04/03/18 04/03/18 04/03/18 00:10 00:10 01:00 WBC 30.7 H* D RBC 3.06 L Hgb 8.5 L Hct 28.0 L MCV 91.7 MCH 27.7 MCHC 30.2 L RDW 17.4 H Plt Count 236 MPV 10.1 D Neutrophils % No Result Required. Lymphocytes % No Result Required. PT with INR INR PTT (Actin FS) VBG pH POC VBG pCO2 POC VBG pO2 Mixed VBG HCO3 Sodium Potassium Chloride Carbon Dioxide Anion Gap BUN Creatinine Creat Clearance w eGFR Random Glucose Lactic Acid 2.1 H Calcium Magnesium Total Bilirubin AST ALT Alkaline Phosphatase Creatine Kinase Creatine Kinase Index CK-MB (CK-2) Troponin I B-Natriuretic Peptide 52943.45 H Total Protein Albumin ASSESSMENT/PLAN: This is a 62 y/o woman with a PMHx of Breast Ca, HTN, CHF, COPD, HLD, DM, CKD. Placed in Telemetry for COPD Exacerbation, CHF Exacerbation. Admitted to Telemetry for Acute CHF Exacerbation, Acute COPD Exacerbation. Plan: FEN - Fluid Restriction 1L - Replete lytes prn - Low Na, Diabetic Diet Code Status: Full Code Dispo: Requires Inpatient Care Problem List - Problem (1) Acute CHF (congestive heart failure) Assessment/Plan: - Cardiac monitoring - Continue Hydralazine, Lasix - Appreciate Cardiology consult - Serial Enzymes - Daily weights - Strict INOs - Monitor CBC BMP, Mg, Phos Code(s): I50.9 - HEART FAILURE, UNSPECIFIED (2) Lrbsp-[id number] respiratory failure Assessment/Plan: - See Above Code(s): J96.20 - ACUTE AND CHR RESP FAILURE, UNSP W HYPOXIA OR HYPERCAPNIA (3) Acute exacerbation of chronic obstructive pulmonary disease (COPD) Assessment/Plan: - Likely secondary to HF - Continue home meds - Appreciate Pulm consult - CXR reviewed - Continue Duonebs - Continue Solumederol w taper - O2 Code(s): J44.1 - CHRONIC OBSTRUCTIVE PULMONARY DISEASE W (ACUTE) EXACERBATION (4) SOB (shortness of breath) Assessment/Plan: - See above Code(s): R06.02 - SHORTNESS OF BREATH (5) CKD (chronic kidney disease) stage 3, GFR 30-59 ml/min Assessment/Plan: - Cr 2.9 at baseline - BMP in am - Appreciate Nephrology consult - Avoid nephrotoxic drugs Code(s): N18.3 - CHRONIC KIDNEY DISEASE, STAGE 3 (MODERATE) (6) Breast cancer Assessment/Plan: - Appreciate Oncology consult - on Chemo - Monitor CBC Code(s): C50.919 - MALIGNANT NEOPLASM OF UNSP SITE OF UNSPECIFIED FEMALE BREAST (7) Diabetes mellitus Assessment/Plan: - Uncontrolled likely secondary to medication vs non compliance - BGMs - ISS - HgbA1c Code(s): E11.9 - TYPE 2 DIABETES MELLITUS WITHOUT COMPLICATIONS (8) Leukocytosis Assessment/Plan: - Likely secondary to Neupogen (s/p chemo) vs Infection - Monitor CBC - Blood Cultures-pending - Monitor vitals Code(s): D72.829 - ELEVATED WHITE BLOOD CELL COUNT, UNSPECIFIED (9) Hypomagnesemia Assessment/Plan: - Likely secondary to diuretics - Repleted in ED Code(s): E83.42 - HYPOMAGNESEMIA (10) HTN (hypertension) Assessment/Plan: - Not well controlled - Monitor BP - Continue home meds - Monitor renal function Code(s): I10 - ESSENTIAL (PRIMARY) HYPERTENSION (11) PARVEZ on CPAP Assessment/Plan: - CPAP hs Code(s): G47.33 - OBSTRUCTIVE SLEEP APNEA (ADULT) (PEDIATRIC) (12) Smoker Assessment/Plan: - Counseled on smoking cessation Code(s): F17.200 - NICOTINE DEPENDENCE, UNSPECIFIED, UNCOMPLICATED (13) DVT prophylaxis Assessment/Plan: - OOB - SCDs - Heparin SQ Code(s): [id number] - Visit type - Emergency Visit Emergency Visit: Yes ED Registration Date: 04/02/18 Care time: The patient presented to the Emergency Department on the above date and was hospitalized for further evaluation of their emergent condition. - New Patient This patient is new to me today: Yes Date on this admission: 04/03/18 - Critical Care Critical Care patient: No Hospitalist Screening - Colonoscopy Questionnaire Colonoscopy Questionnaire: Colonoscopy Questionnaire - Patient: 50 - 75 years old and never had a screening colonoscopy: No History of colon or rectal polyps, or CA: No History of IBD, Crohn's disease or UC: No History of abdominal radiation therapy as a child: No - Relative: 1 with colon or rectal CA, or polyps at age 60 or younger: No Colon or rectal CA diagnosed at age 45 or younger: No Multiple relatives with colon or rectal CA: No - Outcome: Screening Result: Negative Screen
[2018-04-03] MEDS ORDERED: AZITHROMYCIN IVPB 500 MG in DEXTROSE 5%-WATER - 250 ML IVPB ONE (01:58)
[2018-04-03] MEDS ORDERED: ALBUTEROL SO4 2.5/IPRATROPIUM 0.5 INH SOL 3 ML VIAL.NEB. NEB PRN (02:18)
[2018-04-03 02:30] LABS: ANISOCYTOSIS 1+; HELMET CELLS 1+; MACROCYTOSIS 1+; PLATELET ESTIMATE NORMAL
[2018-04-03] MEDS ORDERED: AZITHROMYCIN IVPB 250 ML IVPB ONE (02:43)
[2018-04-03] MEDS: FUROSEMIDE 40 MG/4 ML INJECTABLE VIAL IVPUSH SCH ×2 (06:27→16:10)
[2018-04-03] MEDS ORDERED: methylPREDNISolone NA SUCC 40 MG/1 ML VIAL IVPUSH SCH (09:00)
--- NOTE | 2018-04-03 09:39 | PN ---
Progress Note, Physician Chief Complaint: NOTES AND EVENTS REVIEWED PATIENT HAS ABNORMAL EKG IN THE OFFICE WITH DR PURCELL AND THOUGHTS WERE SECONDARY TO METOCLOPERAMIDE TREATMENT SWITCHED TO COMPAZENE. DENIES CHEST PAIN +SOB NO N/V NOW - Current Medication List Current Medications: Active Medications Albuterol/Ipratropium (Duoneb -) 1 amp NEB Q6H PRN PRN Reason: SHORTNESS OF BREATH Furosemide (Lasix Injection -) 40 mg IVPUSH BID@0600,1400 ALDO Last Admin: 04/03/18 06:27 Dose: 40 mg Hydralazine HCl (Apresoline -) 50 mg PO BID ALDO Insulin Aspart (Novolog Vial Sliding Scale -) 1 vial SQ ACHS ALDO PRN Reason: Protocol Isosorbide Dinitrate (Isordil -) 20 mg PO BIDISORDIL ALDO Methylprednisolone Sodium Succinate (Solu-Medrol -) 40 mg IVPUSH Q6H-IV ALDO Metoprolol Succinate (Toprol Xl -) 25 mg PO BID ALDO - Objective Vital Signs: Vital Signs Temperature 97.7 F 04/03/18 06:00 Pulse Rate 77 04/03/18 06:00 Respiratory Rate 18 04/03/18 06:00 Blood Pressure 143/75 04/03/18 06:00 O2 Sat by Pulse Oximetry (%) 98 04/03/18 06:00 Constitutional: Yes: Mild Distress Eyes: Yes: WNL HENT: Yes: WNL Neck: Yes: WNL Cardiovascular: Yes: WNL Respiratory: Yes: Wheezes Gastrointestinal: Yes: WNL Genitourinary: Yes: WNL Musculoskeletal: Yes: WNL Extremities: Yes: Other Edema: No Peripheral Pulses WNL: Yes Integumentary: Yes: Rash Wound/Incision: Yes: Clean/Dry Neurological: Yes: WNL ...Motor Strength: WNL Psychiatric: Yes: WNL Labs: CBC, BMP 04/03/18 00:10 04/03/18 00:10 INR, PTT INR 1.14 (0.82-1.09) 04/03/18 00:10 Problem List - Problems (1) Acute CHF (congestive heart failure) Code(s): I50.9 - HEART FAILURE, UNSPECIFIED (2) Dmaak-dh-uciyqkf respiratory failure Code(s): J96.20 - ACUTE AND CHR RESP FAILURE, UNSP W HYPOXIA OR HYPERCAPNIA (3) Breast cancer Code(s): C50.919 - MALIGNANT NEOPLASM OF UNSP SITE OF UNSPECIFIED FEMALE BREAST (4) CKD (chronic kidney disease) Code(s): N18.9 - CHRONIC KIDNEY DISEASE, UNSPECIFIED (5) COPD exacerbation Code(s): J44.1 - CHRONIC OBSTRUCTIVE PULMONARY DISEASE W (ACUTE) EXACERBATION (6) DVT prophylaxis Code(s): XFE1318 - (7) Abnormal EKG Code(s): R94.31 - ABNORMAL ELECTROCARDIOGRAM [ECG] [EKG] Assessment/Plan EKG CHANGES FROM METOCLOPERAMIDE START COMPAZINE FOR N/V CARDIOLOGY EVAL MONITOR LABS DIET DISCUSSED WITH PATIENT CAN KEEP ON TELEMETRY FOR 24 HOURS MORE WITH EKG IN AM WHILE ON COMPAZINE TO CHECK IF QT PROLONGATION REOCCURS
[2018-04-03] MEDS ORDERED: ISOSORBIDE DINITRATE 10 MG TABLET (FP) PO SCH (10:00)
[2018-04-03] MEDS: ISOSORBIDE DINITRATE 10 MG TABLET (FP) PO SCH ×2 (10:23→17:22)
[2018-04-03] MEDS: hydrALAZINE HCL 50 MG TABLET (FP) PO SCH ×2 (10:23→22:12)
[2018-04-03] MEDS: metoPROLOL SUCCINATE 25 MG TAB.SR.24H (FP) PO SCH ×2 (10:23→22:12)
--- NOTE | 2018-04-03 11:06 | EKG ---
Test Reason : Blood Pressure : / mmHG Vent. Rate : 080 BPM Atrial Rate : 080 BPM P-R Int : 154 ms QRS Dur : 102 ms QT Int : 464 ms P-R-T Axes : 039 008 113 degrees QTc Int : 535 ms NORMAL SINUS RHYTHM NONSPECIFIC ST AND T WAVE ABNORMALITY PROLONGED QT ABNORMAL ECG WHEN COMPARED WITH ECG OF 09-MAR-2018 14:23, NO SIGNIFICANT CHANGE WAS FOUND Confirmed by EVY DIALLO MD ([id number]) on 04/03/2018 11:06:13 AM Referred By: Confirmed By:EVY DIALLO MD
--- NOTE | 2018-04-03 11:08 | CON.CARD ---
Cardiology Consult (text) - Consultation Consultation Note: cc: high bp, legs swollen hpi: 62 yo smoker with h/o systolic cardiomyopathy, non-obstructive cad, HTN, HL , pHTN, PAD, mod PARVEZ on cpap, CKD (cr 1.8 - 2.2), DM, h/o GIB s/p cauterization of avm's, breast cancer on chemo here with high bp, legs swollen. Was feeling ok until after iv infusions yesterday when she later noticed le edema and mild sob. No cp, palps, dizzy, loc, pnd, orthopnea. Got iv lasix in er and feeling better. Sees dr colvin for cardio. PMHx/PSHx: per hpi Social hx: current smoker, family hx: mother CVA in 60s, fatal periop event 67 (? PA) ros per hpi; no nvd, fever, rodriguez, vision changes, bleeding, dysuria, muscle pains Ambulatory Orders Home Medications Medication Instructions Recorded hydrALAZINE HCL [Apresoline -] 50 mg PO BID #60 tablet 11/19/14 Alprazolam [Xanax] 0.5 mg PO HS 06/23/17 Fluticasone/Vilanterol [Breo 1 each IH DAILY 11/28/17 Ellipta 100-25 Mcg INH] Sodium Polystyrene Sulfon/Sorb 30 gm RC ASDIR 11/28/17 [Sps 30 gm/120 ml Enema] Atorvastatin Ca [Lipitor] 20 mg PO HS #30 tab 03/11/18 Folic Acid 1 mg PO DAILY #30 tab 03/11/18 Furosemide [Lasix -] 40 mg PO BID@0600,1400 #60 tablet 03/11/18 Metoprolol Succinate [Toprol XL -] 50 mg PO DAILY #30 tablet 03/11/18 pe: Vital Signs Period Temp Pulse Resp BP Sys/Padron Pulse Ox Last 24 Hr 97.4 F-98.4 F 76-89 18-22 143-179/64-92 97-99 NAD, no jvd RRR nl s1, s2 no m/r/g cta bl nl eff aaox3 1+ le edema. no c/c abd nt nd pos bs pos dp pt, no carotid bruits no jaundice diaphoresis Laboratory Last Values WBC 30.7 K/mm3 (4.0-10.0) H* D 04/03/18 00:10 RBC 3.06 M/mm3 (3.60-5.2) L 04/03/18 00:10 Hgb 8.5 GM/dL (10.7-15.3) L 04/03/18 00:10 Hct 28.0 % (32.4-45.2) L 04/03/18 00:10 MCV 91.7 fl (80-96) 04/03/18 00:10 MCH 27.7 pg (25.7-33.7) 04/03/18 00:10 MCHC 30.2 g/dl (32.0-36.0) L 04/03/18 00:10 RDW 17.4 % (11.6-15.6) H 04/03/18 00:10 Plt Count 236 K/MM3 (134-434) 04/03/18 00:10 MPV 10.1 fl (7.5-11.1) D 04/03/18 00:10 Neutrophils % No Result Required. 04/03/18 00:10 Neutrophils % (Manual) 91.0 % (42.8-82.8) H 04/03/18 00:10 Band Neutrophils % 0.0 % 04/03/18 00:10 Lymphocytes % No Result Required. 04/03/18 00:10 Lymphocytes % (Manual) 0.0 % (8-40) L 04/03/18 00:10 Monocytes % (Manual) 9 % (3.8-10.2) 04/03/18 00:10 Eosinophils % (Manual) 0.0 % (0-4.5) 04/03/18 00:10 Basophils % (Manual) 0.0 % (0-2.0) 04/03/18 00:10 Myelocytes % (Man) 0 % (0-2) 04/03/18 00:10 Promyelocytes % (Man) 0 % (0-2) 04/03/18 00:10 Blast Cells % (Manual) 0 % (0-0) 04/03/18 00:10 Nucleated RBC % 0 % (0-0) 04/03/18 00:10 Metamyelocytes 0 % (0-2) 04/03/18 00:10 Platelet Estimate Normal 04/03/18 00:10 Poikilocytosis 1+ 04/03/18 00:10 Anisocytosis 1+ 04/03/18 00:10 Macrocytosis 1+ 04/03/18 00:10 Helmet Cells 1+ 04/03/18 00:10 PT with INR 12.90 SEC (9.7-13.0) 04/03/18 00:10 INR 1.14 (0.82-1.09) 04/03/18 00:10 PTT (Actin FS) 33.2 SECONDS (26.9-34.4) 04/03/18 00:10 VBG pH 7.24 (7.32-7.42) L* 04/03/18 00:10 POC VBG pCO2 37.7 mmHg (38-52) L 04/03/18 00:10 POC VBG pO2 43.2 mmHg (28-48) 04/03/18 00:10 Mixed VBG HCO3 15.5 meq/L (19-25) L 04/03/18 00:10 Sodium 139 mmol/L (136-145) 04/03/18 00:10 Potassium 4.4 mmol/L (3.5-5.1) 04/03/18 00:10 Chloride 108 mmol/L (98-107) H 04/03/18 00:10 Carbon Dioxide 16 mmol/L (21-32) L 04/03/18 00:10 Anion Gap 15 (8-16) 04/03/18 00:10 BUN 82 mg/dL (7-18) H 04/03/18 00:10 Creatinine 2.9 mg/dL (0.55-1.02) H 04/03/18 00:10 Creat Clearance w eGFR 16.44 (>60) 04/03/18 00:10 Random Glucose 309 mg/dL (74-106) H* 04/03/18 00:10 Hemoglobin A1c % 10.0 % (4.8-6.0) H 04/03/18 05:57 Lactic Acid 2.1 mmol/L (0.0-2.0) H 04/03/18 05:15 Calcium 7.3 mg/dL (8.5-10.1) L 04/03/18 00:10 Magnesium 1.7 mg/dL (1.8-2.4) L 04/03/18 00:10 Total Bilirubin 0.4 mg/dL (0.2-1.0) D 04/03/18 00:10 AST 31 U/L (15-37) 04/03/18 00:10 ALT 28 U/L (12-78) 04/03/18 00:10 Alkaline Phosphatase 254 U/L (45-117) H 04/03/18 00:10 Creatine Kinase 283 IU/L (26-192) H 04/03/18 00:10 Creatine Kinase Index 4.6 % (0.0-5.0) 04/03/18 00:10 CK-MB (CK-2) 13.194 ng/mL (0.5-3.6) H 04/03/18 00:10 Troponin I 0.04 ng/ml (0.00-0.05) 04/03/18 00:10 B-Natriuretic Peptide 04194.45 pg/ml (5-125) H 04/03/18 00:10 Total Protein 7.7 g/dl (6.4-8.2) 04/03/18 00:10 Albumin 3.3 g/dl (3.4-5.0) L 04/03/18 00:10 Triglycerides 175 mg/dL (35-160) H 04/03/18 05:57 Cholesterol 97 mg/dL (50-200) 04/03/18 05:57 Total LDL Cholesterol 49 mg/dL (5-100) 04/03/18 05:57 HDL Cholesterol 37 mg/dL (40-60) L 04/03/18 05:57 Echo 08/03: mod LVE, mod decr EF (global). nl RV. mild-mod MR, mod TR. RVSP 45. LHC 06/29: nl EDP; EF 40% (global); 50-60% OM1 (normal FFR); mild dz others MIBI 06/29 (pers): no STs; moder, partly rev defect AW c/w ischemia; mild LVE, mild-mod global LV hypo (40% EF); MILD TID MIBI 08/27 (pers): no ST change; TDS perfusion b/c of GI artifact and gating artifact; mild LV dilation and mild decr EFvisually (no TID) CXR: clear lungs ecg: sr, nl pr, qtc 535, no ischemic changes tele: sr Assessment/Plan acute systolic CHF: -nonisch CMP (prior cath for this w/u). LVEF MODERATELY REDUCED -has been on lasix 40 bid at home, doing well, but then got ivs yesterday for chemo and after noticed le edema and sob -feeling better after iv lasix, still with some le edema, cont iv lasix for now -cont METOPR 25 BID, HYDRALAZINE AND NITRATES -NO EVELINA/ARB, DUE TO RECURRENT SEVERE HYPERKALEMIA (DUE TO PT REPEATED NONCOMPLIANCE WITH REGULAR KAYEXALATE DOSING) Ckd: -cr at baseline, monitor with lasix Chronic ischemic heart disease: -NONOBSTR OM (INCL FFR NEGATIVE), NEVER HAD ANGINA. -no sigs acs here -cont home meds Essential hypertension: -controlled on current meds Chronic obstructive pulmonary disease -STABLE ON BB LONG TIME Obstructive sleep apnea -USES CPAP AT HOME Pure hypercholesterolemia -cont statin prolonged qt: -thought to be due to reglan. this has been stopped and replaced by compazine
[2018-04-03] MEDS: INSULIN SLIDING SCALE (NOVOLOG) 1 VIAL SQ SCH ×3 (11:27→22:12)
--- NOTE | 2018-04-03 14:10 | CON.PULM ---
Consult Referred by:: PULMONARY Reason for Consultation:: SOB/LOWER EXT EDEMA/ - History of Present Illness Chief Complaint: SOB/LOWER EXT EDEMA History of Present Illness: The patient is a 62 year old female with a past medical history of breast cancer , HTN, CHF, COPD, HLD, DM, and CKD who presents to the emergency department today with high blood pressure, bilateral leg edema and shortness of breath today . 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 The patient also had chemotherapy and reports feeling weak. She denies any abnormal bowel movements. 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 Cardio/Vascular: Yes: CHF, HTN, Hyperlipdemia, Pulmonary Hypertension Pulmonary: Yes: Asthma, Sleep Apnea (on BIPAP at night) Gastrointestinal: Yes: GI Bleed (see HPI), Other (had EGD and colono 12/31, ) Renal/: Yes: Renal Failure, Renal Inusuff, Other (hyperkalemia) ...LMP: 11/17/07 Heme/Onc: Yes: Anemia Endocrine: Yes: Diabetes Mellitus (uncontrolled) - Alcohol/Substance Use Hx Alcohol Use: No - Smoking History Smoking history: Current every day smoker Have you smoked in the past 12 months: Yes Aproximately how many cigarettes per day: 4 - Social History ADL: Independent Place of : [facility] History of Recent Travel: No Home Medications - Allergies Allergies/Adverse Reactions: Allergies Allergy/AdvReac Type Severity Reaction Status Date / Time No Known Allergies Allergy Verified 04/02/18 23:25 - Home Medications Home Medications: Ambulatory Orders hydrALAZINE HCL [Apresoline -] 50 mg PO BID #60 tablet 11/19/14 Alprazolam [Xanax] 0.5 mg PO HS 06/23/17 Fluticasone/Vilanterol [Breo Ellipta 100-25 Mcg INH] 1 each IH DAILY 11/28/17 Sodium Polystyrene Sulfon/Sorb [Sps 30 gm/120 ml Enema] 30 gm RC ASDIR 11/28/17 Atorvastatin Ca [Lipitor] 20 mg PO HS #30 tab 03/11/18 Folic Acid 1 mg PO DAILY #30 tab 03/11/18 Furosemide [Lasix -] 40 mg PO BID@0600,1400 #60 tablet 03/11/18 Metoprolol Succinate [Toprol XL -] 50 mg PO DAILY #30 tablet 03/11/18 Family Disease History - Family Disease History Family History: Unremarkable Review of Systems - Review of Systems Constitutional: denies: Fever Eyes: denies: Blurred Vision HENT: denies: Difficult Swallowing Neck: denies: Decreased ROM Cardiovascular: denies: Chest Pain Respiratory: reports: Exercise Intolerance, SOB on Exertion. denies: Hemoptysis , Wheezing Gastrointestinal: denies: Abdominal Pain Genitourinary: denies: Burning Musculoskeletal: reports: No Symptoms Physical Exam Vital Sings: Vital Signs Temperature 98.4 F 04/03/18 10:00 Pulse Rate 76 04/03/18 10:00 Respiratory Rate 22 04/03/18 10:00 Blood Pressure 179/92 04/03/18 10:00 O2 Sat by Pulse Oximetry (%) 99 04/03/18 10:00 Constitutional: Yes: Calm Eyes: Yes: EOM Intact HENT: Yes: Normocephalic Neck: Yes: Trachea Midline Cardiovascular: Yes: Regular Rate and Rhythm, S1, S2 Respiratory: Yes: Diminished Gastrointestinal: Yes: Normal Bowel Sounds, Soft, Abdomen, Obese Edema: LLE: 2+, RLE: 2+ Neurological: Yes: Alert Labs: CBC, BMP 04/03/18 00:10 04/03/18 00:10 rest reviewed Imaging - Results Chest X-ray: Report Reviewed, Image Reviewed Problem List - Problems (1) Acute CHF (congestive heart failure) Code(s): I50.9 - HEART FAILURE, UNSPECIFIED (2) Breast cancer Code(s): C50.919 - MALIGNANT NEOPLASM OF UNSP SITE OF UNSPECIFIED FEMALE BREAST (3) CKD (chronic kidney disease) Code(s): N18.9 - CHRONIC KIDNEY DISEASE, UNSPECIFIED (4) COPD exacerbation Code(s): J44.1 - CHRONIC OBSTRUCTIVE PULMONARY DISEASE W (ACUTE) EXACERBATION (5) DVT prophylaxis Code(s): FWY0041 - Assessment/Plan Acute systolic CHF: Ckd: Chronic ischemic heart disease: Essential hypertension: Chronic obstructive pulmonary disea Obstructive sleep apnea Hypercholesterolemia continue 02/bronchodilators no indication for systemic steroids at this time diyretics,beta-blockers,bp control,glycemic control as per cardiology Kevin FELIZ MD
--- NOTE | 2018-04-03 15:20 | CONSULT ---
Consult Consult Specialty:: Nephrology Reason for Consultation:: CKD - History of Present Illness Chief Complaint: shortness of breath History of Present Illness: Pt is a 62 year old female with pmhx of CKD, HTN, breast cancer, CHF, COPD, and DM who presents to the ER complaining of shortness of breath and lower ext edema. She says she was in her cardiologists office yesterday and had a SBP of about 190. She also complains of edema and shortness of breath. She says she felt much better after getting lasix. She feels that her lower ext edema is improving. She denies chest pain or palpitations. 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 Cardio/Vascular: Yes: CHF, HTN, Hyperlipdemia, Pulmonary Hypertension Pulmonary: Yes: Asthma, Sleep Apnea (on BIPAP at night) Gastrointestinal: Yes: GI Bleed (see HPI), Other (had EGD and colono 12/31, ) Renal/: Yes: Renal Failure, Renal Inusuff, Other (hyperkalemia) ...LMP: 11/17/07 Endocrine: Yes: Diabetes Mellitus (uncontrolled) - Alcohol/Substance Use Hx Alcohol Use: No - Smoking History Smoking history: Current every day smoker Have you smoked in the past 12 months: Yes Aproximately how many cigarettes per day: 4 - Social History ADL: Independent History of Recent Travel: No Home Medications - Allergies Allergies/Adverse Reactions: Allergies Allergy/AdvReac Type Severity Reaction Status Date / Time No Known Allergies Allergy Verified 04/02/18 23:25 - Home Medications Home Medications: Ambulatory Orders hydrALAZINE HCL [Apresoline -] 50 mg PO BID #60 tablet 11/19/14 Alprazolam [Xanax] 0.5 mg PO HS 06/23/17 Fluticasone/Vilanterol [Breo Ellipta 100-25 Mcg INH] 1 each IH DAILY 11/28/17 Sodium Polystyrene Sulfon/Sorb [Sps 30 gm/120 ml Enema] 30 gm RC ASDIR 11/28/17 Atorvastatin Ca [Lipitor] 20 mg PO HS #30 tab 03/11/18 Folic Acid 1 mg PO DAILY #30 tab 03/11/18 Furosemide [Lasix -] 40 mg PO BID@0600,1400 #60 tablet 03/11/18 Metoprolol Succinate [Toprol XL -] 50 mg PO DAILY #30 tablet 03/11/18 Family Disease History - Family Disease History Family History: Denies Review of Systems - Review of Systems Constitutional: reports: Malaise Eyes: reports: No Symptoms HENT: reports: No Symptoms Neck: reports: No Symptoms Cardiovascular: reports: Edema, Shortness of Breath Respiratory: reports: SOB Gastrointestinal: reports: No Symptoms Genitourinary: reports: No Symptoms Musculoskeletal: reports: No Symptoms Integumentary: reports: No Symptoms Neurological: reports: No Symptoms Endocrine: reports: No Symptoms Hematology/Lymphatic: reports: No Symptoms Psychiatric: reports: No Symptoms Physical Exam Vital Signs: Vital Signs Temperature 97.7 F 04/03/18 14:00 Pulse Rate 73 04/03/18 14:00 Respiratory Rate 22 04/03/18 10:00 Blood Pressure 144/76 04/03/18 14:00 O2 Sat by Pulse Oximetry (%) 99 04/03/18 10:00 Constitutional: Yes: Calm Eyes: Yes: Conjunctiva Clear HENT: Yes: Atraumatic Neck: Yes: Supple Cardiovascular: Yes: S1, S2 Respiratory: Yes: CTA Bilaterally Gastrointestinal: Yes: Soft Renal/: Yes: WNL Musculoskeletal: Yes: WNL Extremities: Yes: Internal Rotation Edema: LLE: Trace, RLE: Trace Neurological: Yes: Oriented Psychiatric: Yes: Oriented Labs: CBC, BMP 04/03/18 00:10 04/03/18 00:10 Laboratory Tests 03/10/18 03/10/18 04/01/18 07:00 12:15 10:30 Creatinine 3.0 H 2.9 H 3.1 H 04/02/18 04/03/18 14:30 00:10 Creatinine 2.7 H 2.9 H Imaging - Results Chest X-ray: Report Reviewed Problem List - Problems (1) Acute CHF (congestive heart failure) Code(s): I50.9 - HEART FAILURE, UNSPECIFIED (2) CKD (chronic kidney disease) Code(s): N18.9 - CHRONIC KIDNEY DISEASE, UNSPECIFIED Assessment/Plan Current Medications Generic Name Dose Route Start Last Admin Trade Name Freq PRN Reason Stop Dose Admin Albuterol/Ipratropium 1 amp 04/03/18 02:18 Duoneb - NEB Q6H PRN SHORTNESS OF BREATH Furosemide 40 mg 04/03/18 06:00 04/03/18 06:27 Lasix Injection - IVPUSH 40 mg BID@0600,1400 ALDO Administration Hydralazine HCl 50 mg 04/03/18 10:00 04/03/18 10:23 Apresoline - PO 50 mg BID ALDO Administration Insulin Aspart 1 vial 04/03/18 11:00 04/03/18 11:27 Novolog Vial Sliding Scale - SQ 14 unit ACHS ALDO Administration Protocol Isosorbide Dinitrate 20 mg 04/03/18 10:00 04/03/18 10:23 Isordil - PO 20 mg BIDISORDIL ALDO Administration Metoprolol Succinate 25 mg 04/03/18 10:00 04/03/18 10:23 Toprol Xl - PO 25 mg BID ALDO Administration Prochlorperazine Maleate 5 mg 04/03/18 09:46 Compazine - PO Q4H PRN NAUSEA AND/OR VOMITING Selected Entries 04/03/18 14:00 Blood Pressure 144/76 Impression 1. CKD 2. anemia 3. CHF 4. HTN 5. DM 6. hyperlipidemia 7. anxiety 8. uterine cancer 9. hx GI bleed 10. COPD Plan - renal function is close to baseline - cont with lasix - bp is improving - repeat labs in am - avoid nsaids - potassium is stable - will follow
[2018-04-03] MEDS ORDERED: PT OWN MED DRAWER 7, Y5N ONE (19:19)
--- NOTE | 2018-04-03 20:25 | PN ---
Progress Note (short form) - Note Progress Note: Patient seen and examined Admitted with accelerated hypertension and CHF. Multiple co- morbid medical problems-- CKD, CHF, DM,HBP Triple negative breast ca Begun on taxotere and cytoxan on 04/01 Received neulasta, venofer and IV fluids on 04/02 Admitted with CHF and hypertension Last Vital Signs Temp Pulse Resp BP Pulse Ox 98.8 F 72 18 146/76 99 04/03/18 17:00 04/03/18 17:00 04/03/18 17:00 04/03/18 17:00 04/03/18 10:00 HEENT: CHRIS, EOM Intact Oropharynx: No thrush, No mucositis Neck: Supple Nodes: Without adenopathy Breasts: right breast edematous , indurated , s/p lumpectomy Cor: RSR, systolic murmur Lungs:rales at bases Abd: Soft, Normal bowel sounds, No organomegaly ExtLE edemaedema Skin: No rashes, Integument intact CBC, BMP 04/03/18 00:10 04/03/18 00:10 Current Medications Generic Name Dose Route Start Last Admin Trade Name Freq PRN Reason Stop Dose Admin Albuterol/Ipratropium 1 amp 04/03/18 02:18 Duoneb - NEB Q6H PRN SHORTNESS OF BREATH Furosemide 40 mg 04/03/18 06:00 04/03/18 16:10 Lasix Injection - IVPUSH 40 mg BID@0600,1400 ALDO Administration Hydralazine HCl 50 mg 04/03/18 10:00 04/03/18 10:23 Apresoline - PO 50 mg BID ALDO Administration Insulin Aspart 1 vial 04/03/18 11:00 04/03/18 17:21 Novolog Vial Sliding Scale - SQ 5 unit ACHS ALDO Administration Protocol Isosorbide Dinitrate 20 mg 04/03/18 10:00 04/03/18 17:22 Isordil - PO 20 mg BIDISORDIL ALDO Administration Metoprolol Succinate 25 mg 04/03/18 10:00 04/03/18 10:23 Toprol Xl - PO 25 mg BID ALDO Administration Prochlorperazine Maleate 5 mg 04/03/18 09:46 Compazine - PO Q4H PRN NAUSEA AND/OR VOMITING Impression: Multiple co- morbid medical problems- CKD, CHF,HBP,DM Prolonged QT interval - reglan discontinued and zofran discontinued - changed to compazine Triple negative breast ca- s/p lumpectomy- Chemotherapy with taxotere /cytoxan begun on 04/01--cycle 1, day 2 Fe++ deficiency -- begun on Venofer - 04/02 Leucocytosis- given Neulasta - 04/02- day 2 Plan: Treatment of above problems Outpatient monitoring of CBC post chemotherapy Next chemotherapy due in 3 weeks.
[2018-04-03] MEDS ORDERED: ALPRAZolam 0.25 MG TABLET PO ONE (22:06)
[2018-04-03] MEDS ORDERED: INSULIN (NOVOLOG) ASPART 100 UNITS/ML 10ML VIAL ONE (22:11)
--- NOTE | 2018-04-03 23:28 | CONSULT ---
Consult Consult Specialty:: endocrine Referred by:: dr.rabadi bell Reason for Consultation:: diabetes mellitus uncontrolled - History of Present Illness Chief Complaint: high sugars History of Present Illness: 62 y/o woman with a PMH of T2 N1 Triple Negative Breast Ca (on Taxotere, Cytoxan), CAD, CHF, COPD, Emphysema, HTN, HLD, CKD, PARVEZ. Who presents to the ED with SOB and lower extremity edema. Patient states her blood pressure was noted to be high. since chemotherapy today and recent iron infusion. and reports feeling weak. She denies any abnormal bowel movements. 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 Cardio/Vascular: Yes: CHF, HTN, Hyperlipdemia, Pulmonary Hypertension Pulmonary: Yes: Asthma, Sleep Apnea (on BIPAP at night) Gastrointestinal: Yes: GI Bleed (see HPI), Other (had EGD and colono 12/31, ) Renal/: Yes: Renal Failure, Renal Inusuff, Other (hyperkalemia) ...LMP: 11/17/07 Endocrine: Yes: Diabetes Mellitus (uncontrolled) - Alcohol/Substance Use Hx Alcohol Use: No - Smoking History Smoking history: Current every day smoker Have you smoked in the past 12 months: Yes Aproximately how many cigarettes per day: 4 - Social History ADL: Independent History of Recent Travel: No Home Medications - Allergies Allergies/Adverse Reactions: Allergies Allergy/AdvReac Type Severity Reaction Status Date / Time No Known Allergies Allergy Verified 04/02/18 23:25 - Home Medications Home Medications: Ambulatory Orders hydrALAZINE HCL [Apresoline -] 50 mg PO BID #60 tablet 11/19/14 Alprazolam [Xanax] 0.5 mg PO HS 06/23/17 Fluticasone/Vilanterol [Breo Ellipta 100-25 Mcg INH] 1 each IH DAILY 11/28/17 Sodium Polystyrene Sulfon/Sorb [Sps 30 gm/120 ml Enema] 30 gm RC ASDIR 11/28/17 Atorvastatin Ca [Lipitor] 20 mg PO HS #30 tab 03/11/18 Folic Acid 1 mg PO DAILY #30 tab 03/11/18 Furosemide [Lasix -] 40 mg PO BID@0600,1400 #60 tablet 03/11/18 Metoprolol Succinate [Toprol XL -] 50 mg PO DAILY #30 tablet 03/11/18 Review of Systems - Review of Systems Constitutional: reports: Weakness Eyes: reports: Blurred Vision HENT: reports: Throat Pain Neck: reports: No Symptoms Cardiovascular: reports: Shortness of Breath Respiratory: reports: Exercise Intolerance, SOB on Exertion Gastrointestinal: reports: Bloating, Constipation, Indigestion Genitourinary: reports: Frequency Breasts: reports: Skin Changes Musculoskeletal: reports: Muscle Pain, Muscle Cramps, Muscle Weakness Integumentary: reports: Rash Neurological: reports: Numbness, Weakness Endocrine: reports: Unexplained Weight Gain Physical Exam Vital Signs: Vital Signs Temperature 98.8 F 04/03/18 17:00 Pulse Rate 72 04/03/18 17:00 Respiratory Rate 18 04/03/18 20:55 Blood Pressure 146/76 04/03/18 17:00 O2 Sat by Pulse Oximetry (%) 97 04/03/18 20:55 Constitutional: Yes: Anxious Eyes: Yes: EOM Intact HENT: Yes: Normocephalic Neck: Yes: Trachea Midline Cardiovascular: Yes: Regular Rate and Rhythm Respiratory: Yes: CTA Bilaterally Gastrointestinal: Yes: Normal Bowel Sounds ...Rectal Exam: Yes: Deferred Renal/: Yes: WNL Breast(s): Yes: Skin Changes Edema: LLE: 1+, RLE: 1+ Neurological: Yes: Alert, Oriented Labs: CBC, BMP 04/03/18 00:10 04/03/18 00:10 Problem List - Problems (1) Controlled type 2 diabetes mellitus with diabetic peripheral angiopathy without gangrene Code(s): E11.51 - TYPE 2 DIABETES W DIABETIC PERIPHERAL ANGIOPATH W/O GANGRENE (2) Abnormal EKG Code(s): R94.31 - ABNORMAL ELECTROCARDIOGRAM [ECG] [EKG] (3) Acute CHF (congestive heart failure) Code(s): I50.9 - HEART FAILURE, UNSPECIFIED (4) Ovmyp-jo-xunqumb respiratory failure Code(s): J96.20 - ACUTE AND CHR RESP FAILURE, UNSP W HYPOXIA OR HYPERCAPNIA (5) CKD (chronic kidney disease) Code(s): N18.9 - CHRONIC KIDNEY DISEASE, UNSPECIFIED (6) DVT prophylaxis Code(s): IGD8726 - Assessment/Plan Current Active Problems Abnormal EKG (Acute) Acute CHF (congestive heart failure) (Acute) Ctymz-wy-xduttpo respiratory failure (Acute) Breast cancer (Acute) CKD (chronic kidney disease) (Acute) COPD exacerbation (Acute) DVT prophylaxis (Acute) Hypomagnesemia (Acute) Leukocytosis (Acute) Abnormal Lab Results 04/03/18 04/03/18 04/03/18 00:10 00:10 00:10 WBC 30.7 H* D RBC 3.06 L Hgb 8.5 L Hct 28.0 L MCHC 30.2 L RDW 17.4 H Neutrophils % (Manual) 91.0 H Lymphocytes % (Manual) 0.0 L VBG pH 7.24 L* POC VBG pCO2 37.7 L Mixed VBG HCO3 15.5 L Chloride 108 H Carbon Dioxide 16 L BUN 82 H Creatinine 2.9 H Random Glucose 309 H* Hemoglobin A1c % Lactic Acid Calcium 7.3 L Magnesium 1.7 L Alkaline Phosphatase 254 H Creatine Kinase 283 H CK-MB (CK-2) 13.194 H Troponin I B-Natriuretic Peptide Albumin 3.3 L Triglycerides HDL Cholesterol 04/03/18 04/03/18 04/03/18 00:10 01:00 05:15 WBC RBC Hgb Hct MCHC RDW Neutrophils % (Manual) Lymphocytes % (Manual) VBG pH POC VBG pCO2 Mixed VBG HCO3 Chloride Carbon Dioxide BUN Creatinine Random Glucose Hemoglobin A1c % Lactic Acid 2.1 H 2.1 H Calcium Magnesium Alkaline Phosphatase Creatine Kinase CK-MB (CK-2) Troponin I B-Natriuretic Peptide 85107.45 H Albumin Triglycerides HDL Cholesterol 04/03/18 04/03/18 04/03/18 05:57 05:57 12:06 WBC RBC Hgb Hct MCHC RDW Neutrophils % (Manual) Lymphocytes % (Manual) VBG pH POC VBG pCO2 Mixed VBG HCO3 Chloride Carbon Dioxide BUN Creatinine Random Glucose Hemoglobin A1c % 10.0 H Lactic Acid Calcium Magnesium Alkaline Phosphatase Creatine Kinase CK-MB (CK-2) Troponin I 0.07 H 0.07 H B-Natriuretic Peptide Albumin Triglycerides 175 H HDL Cholesterol 37 L Laboratory Results - last 24 hr 04/03/18 04/03/18 04/03/18 00:10 00:10 00:10 WBC RBC Hgb Hct MCV MCH MCHC RDW Plt Count MPV Neutrophils % Neutrophils % (Manual) Band Neutrophils % Lymphocytes % Lymphocytes % (Manual) Monocytes % (Manual) Eosinophils % (Manual) Basophils % (Manual) Myelocytes % (Man) Promyelocytes % (Man) Blast Cells % (Manual) Nucleated RBC % Metamyelocytes Platelet Estimate Poikilocytosis Anisocytosis Macrocytosis Helmet Cells PT with INR 12.90 INR 1.14 PTT (Actin FS) 33.2 VBG pH 7.24 L* POC VBG pCO2 37.7 L POC VBG pO2 43.2 Mixed VBG HCO3 15.5 L Sodium 139 Potassium 4.4 Chloride 108 H Carbon Dioxide 16 L Anion Gap 15 BUN 82 H Creatinine 2.9 H Creat Clearance w eGFR 16.44 POC Glucometer Random Glucose 309 H* Hemoglobin A1c % Lactic Acid Calcium 7.3 L Magnesium 1.7 L Total Bilirubin 0.4 D AST 31 ALT 28 Alkaline Phosphatase 254 H Creatine Kinase 283 H Creatine Kinase Index 4.6 CK-MB (CK-2) 13.194 H Troponin I 0.04 B-Natriuretic Peptide Total Protein 7.7 Albumin 3.3 L Triglycerides Cholesterol Total LDL Cholesterol HDL Cholesterol 04/03/18 04/03/18 04/03/18 00:10 00:10 01:00 WBC 30.7 H* D RBC 3.06 L Hgb 8.5 L Hct 28.0 L MCV 91.7 MCH 27.7 MCHC 30.2 L RDW 17.4 H Plt Count 236 MPV 10.1 D Neutrophils % No Result Required. Neutrophils % (Manual) 91.0 H Band Neutrophils % 0.0 Lymphocytes % No Result Required. Lymphocytes % (Manual) 0.0 L Monocytes % (Manual) 9 Eosinophils % (Manual) 0.0 Basophils % (Manual) 0.0 Myelocytes % (Man) 0 Promyelocytes % (Man) 0 Blast Cells % (Manual) 0 Nucleated RBC % 0 Metamyelocytes 0 Platelet Estimate Normal Poikilocytosis 1+ Anisocytosis 1+ Macrocytosis 1+ Helmet Cells 1+ PT with INR INR PTT (Actin FS) VBG pH POC VBG pCO2 POC VBG pO2 Mixed VBG HCO3 Sodium Potassium Chloride Carbon Dioxide Anion Gap BUN Creatinine Creat Clearance w eGFR POC Glucometer Random Glucose Hemoglobin A1c % Lactic Acid 2.1 H Calcium Magnesium Total Bilirubin AST ALT Alkaline Phosphatase Creatine Kinase Creatine Kinase Index CK-MB (CK-2) Troponin I B-Natriuretic Peptide 60617.45 H Total Protein Albumin Triglycerides Cholesterol Total LDL Cholesterol HDL Cholesterol 04/03/18 04/03/18 04/03/18 05:15 05:57 05:57 WBC RBC Hgb Hct MCV MCH MCHC RDW Plt Count MPV Neutrophils % Neutrophils % (Manual) Band Neutrophils % Lymphocytes % Lymphocytes % (Manual) Monocytes % (Manual) Eosinophils % (Manual) Basophils % (Manual) Myelocytes % (Man) Promyelocytes % (Man) Blast Cells % (Manual) Nucleated RBC % Metamyelocytes Platelet Estimate Poikilocytosis Anisocytosis Macrocytosis Helmet Cells PT with INR INR PTT (Actin FS) VBG pH POC VBG pCO2 POC VBG pO2 Mixed VBG HCO3 Sodium Potassium Chloride Carbon Dioxide Anion Gap BUN Creatinine Creat Clearance w eGFR POC Glucometer Random Glucose Hemoglobin A1c % 10.0 H Lactic Acid 2.1 H Calcium Magnesium Total Bilirubin AST ALT Alkaline Phosphatase Creatine Kinase Creatine Kinase Index CK-MB (CK-2) Troponin I 0.07 H B-Natriuretic Peptide Total Protein Albumin Triglycerides 175 H Cholesterol 97 Total LDL Cholesterol 49 HDL Cholesterol 37 L 04/03/18 04/03/18 04/03/18 11:17 12:06 17:19 WBC RBC Hgb Hct MCV MCH MCHC RDW Plt Count MPV Neutrophils % Neutrophils % (Manual) Band Neutrophils % Lymphocytes % Lymphocytes % (Manual) Monocytes % (Manual) Eosinophils % (Manual) Basophils % (Manual) Myelocytes % (Man) Promyelocytes % (Man) Blast Cells % (Manual) Nucleated RBC % Metamyelocytes Platelet Estimate Poikilocytosis Anisocytosis Macrocytosis Helmet Cells PT with INR INR PTT (Actin FS) VBG pH POC VBG pCO2 POC VBG pO2 Mixed VBG HCO3 Sodium Potassium Chloride Carbon Dioxide Anion Gap BUN Creatinine Creat Clearance w eGFR POC Glucometer 473 239 Random Glucose Hemoglobin A1c % Lactic Acid Calcium Magnesium Total Bilirubin AST ALT Alkaline Phosphatase Creatine Kinase Creatine Kinase Index CK-MB (CK-2) Troponin I 0.07 H B-Natriuretic Peptide Total Protein Albumin Triglycerides Cholesterol Total LDL Cholesterol HDL Cholesterol 04/03/18 22:08 WBC RBC Hgb Hct MCV MCH MCHC RDW Plt Count MPV Neutrophils % Neutrophils % (Manual) Band Neutrophils % Lymphocytes % Lymphocytes % (Manual) Monocytes % (Manual) Eosinophils % (Manual) Basophils % (Manual) Myelocytes % (Man) Promyelocytes % (Man) Blast Cells % (Manual) Nucleated RBC % Metamyelocytes Platelet Estimate Poikilocytosis Anisocytosis Macrocytosis Helmet Cells PT with INR INR PTT (Actin FS) VBG pH POC VBG pCO2 POC VBG pO2 Mixed VBG HCO3 Sodium Potassium Chloride Carbon Dioxide Anion Gap BUN Creatinine Creat Clearance w eGFR POC Glucometer 214 Random Glucose Hemoglobin A1c % Lactic Acid Calcium Magnesium Total Bilirubin AST ALT Alkaline Phosphatase Creatine Kinase Creatine Kinase Index CK-MB (CK-2) Troponin I B-Natriuretic Peptide Total Protein Albumin Triglycerides Cholesterol Total LDL Cholesterol HDL Cholesterol diabetes mellitus ckd nephropathy diabetic pad plan: novolog insulin dose scale levemir 25 units am levemir 10- units hs
[2018-04-04] MEDS: INSULIN SLIDING SCALE (NOVOLOG) 1 VIAL SQ SCH ×4 (06:30→21:15)
[2018-04-04] MEDS ORDERED: PT OWN MED DRAWER 7, Y5N ONE (06:33)
[2018-04-04] MEDS: FUROSEMIDE 40 MG/4 ML INJECTABLE VIAL IVPUSH SCH (06:36)
[2018-04-04] MEDS: INSULIN (LEVEMIR) 100 UNITS/ML UNITS SQ SCH ×3 (06:39→21:16)
[2018-04-04 07:12] LABS: HEMATOCRIT 27.1 % (32.4-45.2); HEMOGLOBIN 8.6 GM/dL (10.7-15.3); MCH 28.9 pg (25.7-33.7); MCHC 31.8 g/dl (32.0-36.0); MEAN PLT VOLUME 10.5 fl (7.5-11.1); PLATELET COUNT 164 K/MM3 (134-434); RBC 2.98 M/mm3 (3.60-5.2)
[2018-04-04 07:28] LABS: WHITE BLOOD COUNT 39.2 K/mm3 (4.0-10.0)
[2018-04-04 07:48] LABS: CHLORIDE 109 mmol/L (98-107); POTASSIUM 5.2 mmol/L (3.5-5.1); SODIUM 137 mmol/L (136-145)
[2018-04-04 07:57] LABS: ANION GAP 12 (8-16); BLOOD UREA NITROGEN 104 mg/dL (7-18); CALCIUM 7.3 mg/dL (8.5-10.1); CO2 16 mmol/L (21-32); CREATININE 3.3 mg/dL (0.55-1.02); GLUCOSE,RANDOM 118 mg/dL (74-106)
[2018-04-04] MEDS: metoPROLOL SUCCINATE 25 MG TAB.SR.24H (FP) PO SCH ×2 (09:50→21:15)
[2018-04-04] MEDS: ISOSORBIDE DINITRATE 10 MG TABLET (FP) PO SCH ×2 (09:50→17:52)
[2018-04-04] MEDS: hydrALAZINE HCL 50 MG TABLET (FP) PO SCH ×2 (09:51→21:15)
--- NOTE | 2018-04-04 10:19 | PN ---
Progress Note, Physician History of Present Illness: Feels better - Current Medication List Current Medications: Active Medications Albuterol/Ipratropium (Duoneb -) 1 amp NEB Q6H PRN PRN Reason: SHORTNESS OF BREATH Last Admin: 04/03/18 20:54 Dose: 1 amp Furosemide (Lasix Injection -) 40 mg IVPUSH BID@0600,1400 [facility] Last Admin: 04/04/18 06:36 Dose: 40 mg Hydralazine HCl (Apresoline -) 50 mg PO BID [facility] Last Admin: 04/04/18 09:51 Dose: 50 mg Insulin Aspart (Novolog Vial Sliding Scale -) 1 vial SQ ACHS [facility] PRN Reason: Protocol Last Admin: 04/04/18 06:30 Dose: Not Given Insulin Detemir (Levemir Vial) 25 units SQ AM [facility] Last Admin: 04/04/18 10:10 Dose: 25 units Insulin Detemir (Levemir Vial) 10 units SQ HS [facility] Isosorbide Dinitrate (Isordil -) 20 mg PO BIDISORDIL [facility] Last Admin: 04/04/18 09:50 Dose: 20 mg Metoprolol Succinate (Toprol Xl -) 25 mg PO BID [facility] Last Admin: 04/04/18 09:50 Dose: 25 mg Prochlorperazine Maleate (Compazine -) 5 mg PO Q4H PRN PRN Reason: NAUSEA AND/OR VOMITING - Objective Vital Signs: Vital Signs Temperature 97.7 F 04/04/18 05:00 Pulse Rate 73 04/04/18 05:00 Respiratory Rate 18 04/04/18 05:00 Blood Pressure 148/77 04/04/18 05:00 O2 Sat by Pulse Oximetry (%) 97 04/03/18 20:55 Cardiovascular: Yes: S1, S2 Respiratory: Yes: Regular, CTA Bilaterally Gastrointestinal: Yes: Normal Bowel Sounds, Soft Labs: CBC, BMP 04/04/18 06:00 04/04/18 06:00 INR, PTT INR 1.14 (0.82-1.09) 04/03/18 00:10 Problem List - Problems (1) CHF (congestive heart failure) Assessment/Plan: -Improved -dc iv lasix--po lasix -monitot renal function -cxr-nad Code(s): I50.9 - HEART FAILURE, UNSPECIFIED (2) CKD (chronic kidney disease) Assessment/Plan: monitor labs Laboratory Tests 04/03/18 04/04/18 00:10 06:00 BUN 82 H 104 H Creatinine 2.9 H 3.3 H Code(s): N18.9 - CHRONIC KIDNEY DISEASE, UNSPECIFIED (3) Leukocytosis Assessment/Plan: -s/p chemo and neulasta -monitor Code(s): D72.829 - ELEVATED WHITE BLOOD CELL COUNT, UNSPECIFIED (4) Acute hyperkalemia Assessment/Plan: -follow on lasix Code(s): E87.5 - HYPERKALEMIA (5) COPD (chronic obstructive pulmonary disease) Assessment/Plan: -nebs -pulm appreciated Code(s): J44.9 - CHRONIC OBSTRUCTIVE PULMONARY DISEASE, UNSPECIFIED (6) Uncontrolled diabetes mellitus Assessment/Plan: -Insulin -bgm -endo appreciated Code(s): E11.65 - TYPE 2 DIABETES MELLITUS WITH HYPERGLYCEMIA (7) Uncontrolled hypertension Assessment/Plan: Vital Signs Temp 97.7 F 04/04/18 05:00 Pulse 73 04/04/18 05:00 Resp 18 04/04/18 05:00 BP 148/77 04/04/18 05:00 Pulse Ox 97 04/03/18 20:55 Code(s): I10 - ESSENTIAL (PRIMARY) HYPERTENSION
[2018-04-04 10:22] LABS: ANISOCYTOSIS 1+
[2018-04-04 10:53] LABS: PLATELET ESTIMATE ADEQUATE
[2018-04-04] MEDS: traMADol HCL 50 MG TABLET PO PRN ×3 (11:09→23:39)
[2018-04-04] MEDS: ALBUTEROL SO4 2.5/IPRATROPIUM 0.5 INH SOL 3 ML VIAL.NEB. NEB SCH ×3 (11:26→19:38)
--- NOTE | 2018-04-04 11:33 | PN ---
Progress Note, Physician History of Present Illness: Breathing marginally improved No chest pain Tele: NSR 70s - Current Medication List Current Medications: Active Medications Albuterol/Ipratropium (Duoneb -) 1 amp NEB QIDR [facility] Furosemide (Lasix -) 40 mg PO BID@0600,1400 [facility] Hydralazine HCl (Apresoline -) 50 mg PO BID [facility] Last Admin: 04/04/18 09:51 Dose: 50 mg Insulin Aspart (Novolog Vial Sliding Scale -) 1 vial SQ ACHS [facility] PRN Reason: Protocol Last Admin: 04/04/18 06:30 Dose: Not Given Insulin Detemir (Levemir Vial) 25 units SQ AM [facility] Last Admin: 04/04/18 10:10 Dose: 25 units Insulin Detemir (Levemir Vial) 10 units SQ HS [facility] Isosorbide Dinitrate (Isordil -) 20 mg PO BIDISORDIL [facility] Last Admin: 04/04/18 09:50 Dose: 20 mg Metoprolol Succinate (Toprol Xl -) 25 mg PO BID [facility] Last Admin: 04/04/18 09:50 Dose: 25 mg Neomycin/Polymyxin/Hydrocortisone (Cortisporin Otic Solution -) 4 drop AD Q6HPO [facility] Prochlorperazine Maleate (Compazine -) 5 mg PO Q4H PRN PRN Reason: NAUSEA AND/OR VOMITING Tramadol HCl (Ultram -) 50 mg PO Q6H PRN PRN Reason: PAIN LEVEL 6-10 Last Admin: 04/04/18 11:09 Dose: 50 mg - Objective Vital Signs: Vital Signs Temperature 97.7 F 04/04/18 05:00 Pulse Rate 73 04/04/18 05:00 Respiratory Rate 18 04/04/18 05:00 Blood Pressure 148/77 04/04/18 05:00 O2 Sat by Pulse Oximetry (%) 97 04/03/18 20:55 Constitutional: Yes: No Distress, Calm Eyes: Yes: Conjunctiva Clear HENT: Yes: WNL Neck: Yes: WNL Cardiovascular: Yes: Regular Rate and Rhythm Respiratory: Yes: CTA Bilaterally Musculoskeletal: Yes: WNL Extremities: Yes: WNL Edema: LLE: 1+, RLE: 1+ Labs: CBC, BMP 04/04/18 06:00 04/04/18 06:00 INR, PTT INR 1.14 (0.82-1.09) 04/03/18 00:10 Assessment/Plan acute systolic CHF: -nonisch CMP (prior cath for this w/u). LVEF MODERATELY REDUCED -has been on lasix 40 bid at home, doing well, but then got ivs yesterday for chemo and after noticed le edema and sob -feeling better after iv lasix, still with some le edema, cont iv lasix for now -cont METOPR 25 BID, HYDRALAZINE AND NITRATES -NO EVELINA/ARB, DUE TO RECURRENT SEVERE HYPERKALEMIA (DUE TO PT REPEATED NONCOMPLIANCE WITH REGULAR KAYEXALATE DOSING) Ckd: -cr at baseline, monitor with lasix -04/04: Creat 3.3 (2.9) . Continue lasix dosing for now. Monitor Creat in AM Chronic ischemic heart disease: -NONOBSTR OM (INCL FFR NEGATIVE), NEVER HAD ANGINA. -no sigs acs here -cont home meds Essential hypertension: -controlled on current meds Chronic obstructive pulmonary disease -STABLE ON BB LONG TIME Obstructive sleep apnea -USES CPAP AT HOME Pure hypercholesterolemia -cont statin
[2018-04-04] MEDS: NEOMYCIN/POLYMYXN/HC OTIC SOLUTION 10 ML BOTTLE AD SCH ×3 (12:05→23:44)
--- NOTE | 2018-04-04 12:25 | PN ---
Progress Note (short form) - Note Progress Note: PULMONARY AWAKE/ALERT EATING LUNCH VSS/AFEBRILE ANICTERIC DECREASED BREATH SOUNDS BASES S1S2 BS+ LOWER EXT EDEMA LABS/MEDS/NOTES/IMAGES REVIEWED Acute systolic CHF: Ckd: Chronic ischemic heart disease: Essential hypertension: Chronic obstructive pulmonary disea Obstructive sleep apnea Hypercholesterolemia continue 02/bronchodilators no indication for systemic steroids at this time diyretics,beta-blockers,bp control,glycemic control Kevin FELIZ MD Problem List - Problems (1) Acute CHF (congestive heart failure) Code(s): I50.9 - HEART FAILURE, UNSPECIFIED (2) Breast cancer Code(s): C50.919 - MALIGNANT NEOPLASM OF UNSP SITE OF UNSPECIFIED FEMALE BREAST (3) CKD (chronic kidney disease) Code(s): N18.9 - CHRONIC KIDNEY DISEASE, UNSPECIFIED (4) COPD exacerbation Code(s): J44.1 - CHRONIC OBSTRUCTIVE PULMONARY DISEASE W (ACUTE) EXACERBATION (5) DVT prophylaxis Code(s): [id number] -
--- NOTE | 2018-04-04 12:51 | PN ---
Progress Note (short form) - Note Progress Note: RENAL Pt is known to me from previous admission She receives nephrologic care from Dr Farr as outpatient admitted with dyspnea and leg edema was started on chemo last week for right breast cancer Last Vital Signs Temp Pulse Resp BP Pulse Ox 97.7 F 73 18 148/77 97 04/04/18 05:00 04/04/18 05:00 04/04/18 05:00 04/04/18 05:00 04/03/18 20:55 lungs clear cvs s1s2 rr abd soft ext +edema neuro a+ox3 CBC, BMP 04/04/18 06:00 04/04/18 06:00 Current Medications Generic Name Dose Route Start Last Admin Trade Name Freq PRN Reason Stop Dose Admin Albuterol/Ipratropium 1 amp 04/04/18 12:00 Duoneb - NEB QIDR ALDO Furosemide 40 mg 04/04/18 14:00 Lasix - PO BID@0600,1400 ALDO Hydralazine HCl 50 mg 04/03/18 10:00 04/04/18 09:51 Apresoline - PO 50 mg BID ALDO Administration Insulin Aspart 1 vial 04/03/18 23:34 04/04/18 06:30 Novolog Vial Sliding Scale - SQ Not Given ACHS [facility] Protocol Insulin Detemir 25 units 04/04/18 07:00 04/04/18 10:10 Levemir Vial SQ 25 units AM ALDO Administration Insulin Detemir 10 units 04/04/18 22:00 Levemir Vial SQ HS ALDO Isosorbide Dinitrate 20 mg 04/03/18 10:00 04/04/18 09:50 Isordil - PO 20 mg BIDISORDIL ALDO Administration Metoprolol Succinate 25 mg 04/03/18 10:00 04/04/18 09:50 Toprol Xl - PO 25 mg BID ALDO Administration Neomycin/Polymyxin/Hydrocortisone 4 drop 04/04/18 12:00 Cortisporin Otic Solution - AD Q6HPO ALDO Pramipexole Dihydrochloride 0.25 mg 04/04/18 22:00 Mirapex - PO HS ALDO Prochlorperazine Maleate 5 mg 04/03/18 09:46 Compazine - PO Q4H PRN NAUSEA AND/OR VOMITING Tramadol HCl 50 mg 04/04/18 10:13 04/04/18 11:09 Ultram - PO 50 mg Q6H PRN Administration PAIN LEVEL 6-10 Impression 1. CKD 2. anemia 3. CHF 4. HTN 5. DM 6. hyperlipidemia 7. anxiety 8. breast cancer 9. hx GI bleed 10. COPD 11. leucocytosis improving Plan - renal function is close to baseline - reduce lasix - repeat labs in am - avoid nsaids - reduce pramipexole and dc if possible -vitamin d, pth and phos MV
[2018-04-04] MEDS ORDERED: FUROSEMIDE 40 MG TABLET (FP) PO SCH (14:00)
[2018-04-04] MEDS: diphenhydrAMINE HCL 25 MG CAPSULE (FP) PO PRN ×2 (14:45→20:36)
[2018-04-04] MEDS ORDERED: INSULIN (NOVOLOG) ASPART 100 UNITS/ML 10ML VIAL ONE (21:14)
[2018-04-04] MEDS: PRAMIPEXOLE DIHYDROCHLORIDE 0.25 MG TABLET PO SCH (21:16)
[2018-04-05] MEDS: INSULIN SLIDING SCALE (NOVOLOG) 1 VIAL SQ SCH ×4 (06:50→21:34)
[2018-04-05] MEDS: ALBUTEROL SO4 2.5/IPRATROPIUM 0.5 INH SOL 3 ML VIAL.NEB. NEB SCH ×4 (07:55→20:15)
[2018-04-05] MEDS: INSULIN (LEVEMIR) 100 UNITS/ML UNITS SQ SCH ×2 (08:12→21:32)
[2018-04-05] MEDS: NEOMYCIN/POLYMYXN/HC OTIC SOLUTION 10 ML BOTTLE AD SCH ×3 (08:12→17:53)
[2018-04-05 08:47] LABS: HEMATOCRIT 26.6 % (32.4-45.2); HEMOGLOBIN 8.2 GM/dL (10.7-15.3); MCH 28.1 pg (25.7-33.7); MCHC 30.8 g/dl (32.0-36.0); MEAN CELL VOLUME 91.2 fl (80-96); MEAN PLT VOLUME 11.1 fl (7.5-11.1); PLATELET COUNT 147 K/MM3 (134-434); RBC 2.91 M/mm3 (3.60-5.2); RDW 16.9 % (11.6-15.6); WHITE BLOOD COUNT 26.5 K/mm3 (4.0-10.0)
[2018-04-05] MEDS: hydrALAZINE HCL 50 MG TABLET (FP) PO SCH ×2 (09:20→21:32)
[2018-04-05] MEDS: ISOSORBIDE DINITRATE 10 MG TABLET (FP) PO SCH ×2 (09:20→17:53)
[2018-04-05] MEDS: metoPROLOL SUCCINATE 25 MG TAB.SR.24H (FP) PO SCH ×2 (09:20→21:34)
[2018-04-05] MEDS ORDERED: FUROSEMIDE 40 MG TABLET (FP) PO SCH (10:00)
--- NOTE | 2018-04-05 10:29 | PN ---
Progress Note, Physician History of Present Illness: Feels better - Current Medication List Current Medications: Active Medications Albuterol/Ipratropium (Duoneb -) 1 amp NEB RQID [facility] Last Admin: 04/05/18 07:55 Dose: 1 amp Diphenhydramine HCl (Benadryl -) 25 mg PO Q6H PRN PRN Reason: ITCHING Last Admin: 04/04/18 20:36 Dose: 25 mg Furosemide (Lasix -) 40 mg PO DAILY [facility] Last Admin: 04/05/18 09:20 Dose: 40 mg Hydralazine HCl (Apresoline -) 50 mg PO BID [facility] Last Admin: 04/05/18 09:20 Dose: 50 mg Insulin Aspart (Novolog Vial Sliding Scale -) 1 vial SQ [facility] PRN Reason: Protocol Last Admin: 04/05/18 06:50 Dose: Not Given Insulin Detemir (Levemir Vial) 25 units SQ AM [facility] Last Admin: 04/05/18 08:12 Dose: Not Given Insulin Detemir (Levemir Vial) 10 units SQ [facility] Last Admin: 04/04/18 21:16 Dose: 10 units Isosorbide Dinitrate (Isordil -) 20 mg PO BIDISORDIL [facility] Last Admin: 04/05/18 09:20 Dose: 20 mg Metoprolol Succinate (Toprol Xl -) 25 mg PO BID [facility] Last Admin: 04/05/18 09:20 Dose: 25 mg Neomycin/Polymyxin/Hydrocortisone (Cortisporin Otic Solution -) 4 drop AD Q6HPO [facility] Last Admin: 04/05/18 08:12 Dose: Not Given Pramipexole Dihydrochloride (Mirapex -) 0.25 mg PO [facility] Last Admin: 04/04/18 21:16 Dose: 0.25 mg Prochlorperazine Maleate (Compazine -) 5 mg PO Q4H PRN PRN Reason: NAUSEA AND/OR VOMITING Tramadol HCl (Ultram -) 50 mg PO Q6H PRN PRN Reason: PAIN LEVEL 6-10 Last Admin: 04/04/18 23:39 Dose: 50 mg - Objective Vital Signs: Vital Signs Temperature 97.8 F 04/05/18 08:56 Pulse Rate 74 04/05/18 08:56 Respiratory Rate 18 04/05/18 08:57 Blood Pressure 128/49 04/05/18 08:56 O2 Sat by Pulse Oximetry (%) 93 L 04/05/18 08:57 Cardiovascular: Yes: S1, S2 Respiratory: Yes: Regular, CTA Bilaterally Gastrointestinal: Yes: Normal Bowel Sounds, Soft Labs: CBC, BMP 04/05/18 06:00 04/05/18 06:00 INR, PTT INR 1.14 (0.82-1.09) 04/03/18 00:10 Problem List - Problems (1) CHF (congestive heart failure) Assessment/Plan: -Improved -dc iv lasix--po lasix -monitor renal function -cxr-nad Code(s): I50.9 - HEART FAILURE, UNSPECIFIED (2) CKD (chronic kidney disease) Assessment/Plan: monitor labs Laboratory Tests 04/03/18 04/04/18 00:10 06:00 BUN 82 H 104 H Creatinine 2.9 H 3.3 H Code(s): N18.9 - CHRONIC KIDNEY DISEASE, UNSPECIFIED (3) Leukocytosis Assessment/Plan: -s/p chemo and neulasta -monitor Code(s): D72.829 - ELEVATED WHITE BLOOD CELL COUNT, UNSPECIFIED (4) Acute hyperkalemia Assessment/Plan: -follow on lasix Code(s): E87.5 - HYPERKALEMIA (5) COPD (chronic obstructive pulmonary disease) Assessment/Plan: -nebs -pulm appreciated Code(s): J44.9 - CHRONIC OBSTRUCTIVE PULMONARY DISEASE, UNSPECIFIED (6) Uncontrolled diabetes mellitus Assessment/Plan: -Insulin -bgm -endo appreciated Code(s): E11.65 - TYPE 2 DIABETES MELLITUS WITH HYPERGLYCEMIA (7) Uncontrolled hypertension Assessment/Plan: -Better Vital Signs Period Temp Pulse Resp BP Sys/Padron Pulse Ox Last 24 Hr 97.6 F-98.2 F 70-76 18-20 128-158/49-80 93-94 Code(s): I10 - ESSENTIAL (PRIMARY) HYPERTENSION
--- NOTE | 2018-04-05 10:41 | PN ---
Progress Note, Physician History of Present Illness: No events No cardiovascular complaints Breathing continues to improve Tele: NSR - Current Medication List Current Medications: Active Medications Albuterol/Ipratropium (Duoneb -) 1 amp NEB RQID [facility] Last Admin: 04/05/18 07:55 Dose: 1 amp Diphenhydramine HCl (Benadryl -) 25 mg PO Q6H PRN PRN Reason: ITCHING Last Admin: 04/04/18 20:36 Dose: 25 mg Furosemide (Lasix -) 40 mg PO DAILY [facility] Last Admin: 04/05/18 09:20 Dose: 40 mg Hydralazine HCl (Apresoline -) 50 mg PO BID [facility] Last Admin: 04/05/18 09:20 Dose: 50 mg Insulin Aspart (Novolog Vial Sliding Scale -) 1 vial SQ [facility] PRN Reason: Protocol Last Admin: 04/05/18 06:50 Dose: Not Given Insulin Detemir (Levemir Vial) 25 units SQ AM [facility] Last Admin: 04/05/18 08:12 Dose: Not Given Insulin Detemir (Levemir Vial) [address] [facility] Last Admin: 04/04/18 21:16 Dose: 10 units Isosorbide Dinitrate (Isordil -) 20 mg PO BIDISORDIL [facility] Last Admin: 04/05/18 09:20 Dose: 20 mg Metoprolol Succinate (Toprol Xl -) 25 mg PO BID [facility] Last Admin: 04/05/18 09:20 Dose: 25 mg Neomycin/Polymyxin/Hydrocortisone (Cortisporin Otic Solution -) 4 drop AD Q6HPO [facility] Last Admin: 04/05/18 08:12 Dose: Not Given Pramipexole Dihydrochloride (Mirapex -) 0.[address] [facility] Last Admin: 04/04/18 21:16 Dose: 0.25 mg Prochlorperazine Maleate (Compazine -) 5 mg PO Q4H PRN PRN Reason: NAUSEA AND/OR VOMITING Tramadol HCl (Ultram -) 50 mg PO Q6H PRN PRN Reason: PAIN LEVEL 6-10 Last Admin: 04/04/18 23:39 Dose: 50 mg - Objective Vital Signs: Vital Signs Temperature 97.8 F 04/05/18 08:56 Pulse Rate 74 05/20/18 08:56 Respiratory Rate 18 04/05/18 08:57 Blood Pressure 128/49 04/05/18 08:56 O2 Sat by Pulse Oximetry (%) 93 L 04/05/18 08:57 Constitutional: Yes: No Distress, Calm Eyes: Yes: WNL HENT: Yes: WNL Neck: Yes: WNL Cardiovascular: Yes: Regular Rate and Rhythm Respiratory: Yes: CTA Bilaterally Gastrointestinal: Yes: Normal Bowel Sounds Musculoskeletal: Yes: WNL Extremities: Yes: WNL Edema: No Labs: CBC, BMP 04/05/18 06:00 04/05/18 06:00 INR, PTT INR 1.14 (0.82-1.09) 04/03/18 00:10 Assessment/Plan acute systolic CHF: -nonisch CMP (prior cath for this w/u). LVEF MODERATELY REDUCED -has been on lasix 40 bid at home, doing well, but then got ivs yesterday for chemo and after noticed le edema and sob -feeling better after iv lasix, still with some le edema, cont iv lasix for now -cont METOPR 25 BID, HYDRALAZINE AND NITRATES -NO EVELINA/ARB, DUE TO RECURRENT SEVERE HYPERKALEMIA (DUE TO PT REPEATED NONCOMPLIANCE WITH REGULAR KAYEXALATE DOSING) 04/05: Improving clincially. Will transition to PO lasix if Creat stable Ckd: -cr at baseline, monitor with lasix -04/04: Creat 3.3 (2.9) . Continue lasix dosing for now. Monitor Creat in AM -04/05: Creat 0.9 (Was 3.3 yesterday), either spurious value? Would recheck this and then consider change to PO lasix if stable. Chronic ischemic heart disease: -NONOBSTR OM (INCL FFR NEGATIVE), NEVER HAD ANGINA. -no sigs acs here -cont home meds Essential hypertension: -controlled on current meds Chronic obstructive pulmonary disease -STABLE ON BB LONG TIME Obstructive sleep apnea -USES CPAP AT HOME Pure hypercholesterolemia -cont statin
[2018-04-05 11:22] LABS: ANISOCYTOSIS 1+; MACROCYTOSIS 1+; PLATELET ESTIMATE NORMAL
[2018-04-05 11:52] LABS: ALBUMIN 3.1 g/dl (3.4-5.0); ALK PHOS 182 U/L (45-117); ANION GAP 10 (8-16); BILIRUBIN,TOTAL 0.5 mg/dL (0.2-1.0); CALCIUM 7.2 mg/dL (8.5-10.1); CHLORIDE 111 mmol/L (98-107); CO2 19 mmol/L (21-32); CREATININE 3.9 mg/dL (0.55-1.02); GLUCOSE,RANDOM 110 mg/dL (74-106); SGOT/AST 27 U/L (15-37); SGPT/ALT 30 U/L (12-78); SODIUM 140 mmol/L (136-145); TOT PROT 6.7 g/dl (6.4-8.2)
--- NOTE | 2018-04-05 11:57 | PN ---
Progress Note (short form) - Note Progress Note: Hematology/Oncology follow-up Note S : Patient sleeping when visited today. On waking her, she had no major complaints. Last Vital Signs Temp Pulse Resp BP Pulse Ox 97.8 F 74 18 128/49 93 L 04/05/18 08:56 04/05/18 08:56 04/05/18 08:57 04/05/18 08:56 04/05/18 08:57 PE : HEENT: CHRIS, EOM Intact Oropharynx: No thrush, No mucositis Neck: Supple Nodes: Without adenopathy Breasts: right breast edematous , indurated , s/p lumpectomy Cor: RSR, systolic murmur Lungs:rales at bases Abd: Soft, Normal bowel sounds, No organomegaly ExtLE edemaedema Skin: No rashes, Integument intact CBC, BMP 04/05/18 06:00 04/05/18 11:05 Current Medications Generic Name Dose Route Start Last Admin Trade Name Freq PRN Reason Stop Dose Admin Albuterol/Ipratropium 1 amp 04/04/18 20:00 04/05/18 11:42 Duoneb - NEB 1 amp RQID ALDO Administration Diphenhydramine HCl 25 mg 04/04/18 14:42 04/04/18 20:36 Benadryl - PO 25 mg Q6H PRN Administration ITCHING Furosemide 40 mg 04/05/18 10:00 04/05/18 09:20 Lasix - PO 40 mg DAILY ALDO Administration Hydralazine HCl 50 mg 04/03/18 10:00 04/05/18 09:20 Apresoline - PO 50 mg BID ALDO Administration Insulin Aspart 1 vial 04/03/18 23:34 04/05/18 06:50 Novolog Vial Sliding Scale - SQ Not Given ACHS ALDO Protocol Insulin Detemir 25 units 04/04/18 07:00 04/05/18 08:12 Levemir Vial SQ Not Given AM ALDO Insulin Detemir 10 units 04/04/18 22:00 04/04/18 21:16 Levemir Vial SQ 10 units HS ALDO Administration Isosorbide Dinitrate 20 mg 04/03/18 10:00 04/05/18 09:20 Isordil - PO 20 mg BIDISORDIL ALDO Administration Metoprolol Succinate 25 mg 04/03/18 10:00 04/05/18 09:20 Toprol Xl - PO 25 mg BID ALDO Administration Neomycin/Polymyxin/Hydrocortisone 4 drop 04/04/18 12:00 04/05/18 08:12 Cortisporin Otic Solution - AD Not Given Q6HPO ALDO Pramipexole Dihydrochloride 0.25 mg 04/04/18 22:00 04/04/18 21:16 Mirapex - PO 0.25 mg HS ALDO Administration Prochlorperazine Maleate 5 mg 04/03/18 09:46 Compazine - PO Q4H PRN NAUSEA AND/OR VOMITING Tramadol HCl 50 mg 04/04/18 10:13 04/04/18 23:39 Ultram - PO 50 mg Q6H PRN Administration PAIN LEVEL 6-10 AP : 62 y/o female with triple negative breast cancer , multiple medical comorbidities (CKD, CHF, HBP, DM) -On treatment with taxotere/cytoxan, cycle 1 day 4 today -On Venofer for iron deficinecy , given on 04/02 -counts appear wnl, increased WBC count likely due to neulasta -plan for outpatient oncology follow-up and next chemotherapy
[2018-04-05 12:26] LABS: BLOOD UREA NITROGEN 126 mg/dL (7-18)
--- NOTE | 2018-04-05 12:35 | PN ---
Progress Note (short form) - Note Progress Note: RENAL Pt is known to me from previous admission She receives nephrologic care from Dr Farr as outpatient admitted with dyspnea and leg edema was started on chemo last week for right breast cancer Last Vital Signs Temp Pulse Resp BP Pulse Ox 97.8 F 74 18 128/49 93 L 04/05/18 08:56 04/05/18 08:56 04/05/18 08:57 04/05/18 08:56 04/05/18 08:57 lungs clear cvs s1s2 rr abd soft ext minimal edema neuro a+ox3 CBC, BMP 04/05/18 06:00 04/05/18 11:05 Current Medications Generic Name Dose Route Start Last Admin Trade Name Freq PRN Reason Stop Dose Admin Albuterol/Ipratropium 1 amp 04/04/18 20:00 04/05/18 11:42 Duoneb - NEB 1 amp RQID ALDO Administration Diphenhydramine HCl 25 mg 04/04/18 14:42 04/04/18 20:36 Benadryl - PO 25 mg Q6H PRN Administration ITCHING Furosemide 40 mg 04/05/18 10:00 04/05/18 09:20 Lasix - PO 40 mg DAILY ALDO Administration Hydralazine HCl 50 mg 04/03/18 10:00 04/05/18 09:20 Apresoline - PO 50 mg BID ALDO Administration Insulin Aspart 1 vial 04/03/18 23:34 04/05/18 11:57 Novolog Vial Sliding Scale - SQ Not Given ACHS [facility] Protocol Insulin Detemir 25 units 04/04/18 07:00 04/05/18 08:12 Levemir Vial SQ Not Given AM ALDO Insulin Detemir 10 units 04/04/18 22:00 04/04/18 21:16 Levemir Vial SQ 10 units HS ALDO Administration Isosorbide Dinitrate 20 mg 04/03/18 10:00 04/05/18 09:20 Isordil - PO 20 mg BIDISORDIL ALDO Administration Metoprolol Succinate 25 mg 04/03/18 10:00 04/05/18 09:20 Toprol Xl - PO 25 mg BID ALDO Administration Neomycin/Polymyxin/Hydrocortisone 4 drop 04/04/18 12:00 04/05/18 08:12 Cortisporin Otic Solution - AD Not Given Q6HPO ALDO Pramipexole Dihydrochloride 0.25 mg 04/04/18 22:00 04/04/18 21:16 Mirapex - PO 0.25 mg HS ALDO Administration Prochlorperazine Maleate 5 mg 04/03/18 09:46 Compazine - PO Q4H PRN NAUSEA AND/OR VOMITING Tramadol HCl 50 mg 04/04/18 10:13 04/04/18 23:39 Ultram - PO 50 mg Q6H PRN Administration PAIN LEVEL 6-10 Impression 1. CKD 2. anemia 3. CHF 4. HTN 5. DM 6. hyperlipidemia 7. anxiety 8. breast cancer 9. hx GI bleed 10. COPD 11. leucocytosis improving- from neulasta per onc 12. LYSSA worsening- toxicity vs prerenal 13. normal creatinine was a lab error Plan - stop lasix - repeat labs in am - avoid nsaids - reduce pramipexole and dc if possible -vitamin d, pth and phos -renal sono, urine urea and creat MV
[2018-04-05] MEDS ORDERED: SODIUM CHLORIDE 0.45% 1,000 ML IV SCH (12:45)
--- NOTE | 2018-04-05 13:24 | PN ---
Progress Note (short form) - Note Progress Note: PULMONARY AWAKE/ALERT TALKING ON PHONE VSS/AFEBRILE ANICTERIC DECREASED BREATH SOUNDS BASES S1S2 BS+ LOWER EXT EDEMA LABS/MEDS/NOTES/IMAGES REVIEWED Acute systolic CHF: Ckd: Chronic ischemic heart disease: Essential hypertension: Chronic obstructive pulmonary disea Obstructive sleep apnea Hypercholesterolemia continue 02/bronchodilators no indication for systemic steroids at this time diyretics,beta-blockers,bp control,glycemic control Kevin FELIZ MD Problem List - Problems (1) Acute CHF (congestive heart failure) Code(s): I50.9 - HEART FAILURE, UNSPECIFIED (2) Breast cancer Code(s): C50.919 - MALIGNANT NEOPLASM OF UNSP SITE OF UNSPECIFIED FEMALE BREAST (3) CKD (chronic kidney disease) Code(s): N18.9 - CHRONIC KIDNEY DISEASE, UNSPECIFIED (4) COPD exacerbation Code(s): J44.1 - CHRONIC OBSTRUCTIVE PULMONARY DISEASE W (ACUTE) EXACERBATION (5) DVT prophylaxis Code(s): [id number] -
[2018-04-05] MEDS ORDERED: INSULIN (NOVOLOG) ASPART 100 UNITS/ML 10ML VIAL ONE (21:22)
[2018-04-05] MEDS: PRAMIPEXOLE DIHYDROCHLORIDE 0.25 MG TABLET PO SCH (21:33)
[2018-04-05] MEDS: diphenhydrAMINE HCL 25 MG CAPSULE (FP) PO PRN (21:39)
[2018-04-06] MEDS: NEOMYCIN/POLYMYXN/HC OTIC SOLUTION 10 ML BOTTLE AD SCH ×5 (00:15→23:56)
[2018-04-06] MEDS: traMADol HCL 50 MG TABLET PO PRN ×2 (02:57→10:00)
[2018-04-06] MEDS: INSULIN (LEVEMIR) 100 UNITS/ML UNITS SQ SCH ×2 (06:28→21:51)
[2018-04-06] MEDS: INSULIN SLIDING SCALE (NOVOLOG) 1 VIAL SQ SCH ×4 (06:28→21:50)
[2018-04-06 07:10] LABS: ALBUMIN 3.1 g/dl (3.4-5.0); ANION GAP 8 (8-16); CALCIUM 7.1 mg/dL (8.5-10.1); CHLORIDE 112 mmol/L (98-107); CO2 19 mmol/L (21-32); GLUCOSE,RANDOM 105 mg/dL (74-106); MAGNESIUM 2.2 mg/dL (1.8-2.4); POTASSIUM 5.1 mmol/L (3.5-5.1); SODIUM 139 mmol/L (136-145)
[2018-04-06 07:13] LABS: ALK PHOS 174 U/L (45-117); BILIRUBIN,TOTAL 0.6 mg/dL (0.2-1.0); CREATININE 3.7 mg/dL (0.55-1.02); SGOT/AST 21 U/L (15-37); SGPT/ALT 25 U/L (12-78); TOT PROT 6.6 g/dl (6.4-8.2)
[2018-04-06 07:24] LABS: BLOOD UREA NITROGEN 126 mg/dL (7-18)
[2018-04-06] MEDS: ALBUTEROL SO4 2.5/IPRATROPIUM 0.5 INH SOL 3 ML VIAL.NEB. NEB SCH ×4 (07:38→20:00)
[2018-04-06 07:39] LABS: HEMATOCRIT 25.2 % (32.4-45.2); HEMOGLOBIN 7.9 GM/dL (10.7-15.3); MCH 28.3 pg (25.7-33.7); MCHC 31.4 g/dl (32.0-36.0); MEAN CELL VOLUME 90.2 fl (80-96); MEAN PLT VOLUME 11.8 fl (7.5-11.1); PLATELET COUNT 119 K/MM3 (134-434); RBC 2.79 M/mm3 (3.60-5.2); RDW 16.5 % (11.6-15.6); WHITE BLOOD COUNT 17.1 K/mm3 (4.0-10.0)
[2018-04-06] MEDS ORDERED: PT OWN MED DRAWER 7, Y5N ONE ×2 (09:12→13:41)
[2018-04-06] MEDS: metoPROLOL SUCCINATE 25 MG TAB.SR.24H (FP) PO SCH ×2 (09:56→21:44)
[2018-04-06] MEDS: ISOSORBIDE DINITRATE 10 MG TABLET (FP) PO SCH ×2 (09:56→17:32)
[2018-04-06] MEDS: hydrALAZINE HCL 50 MG TABLET (FP) PO SCH ×2 (09:56→21:44)
--- NOTE | 2018-04-06 10:53 | PN ---
Progress Note, Physician History of Present Illness: PULMONARY ALERT,FEELING BETTER,SOB IMPROVING,-COUGH,-CP - Current Medication List Current Medications: Active Medications Albuterol/Ipratropium (Duoneb -) 1 amp NEB RQID [facility] Last Admin: 04/06/18 07:38 Dose: 1 amp Diphenhydramine HCl (Benadryl -) 25 mg PO Q6H PRN PRN Reason: ITCHING Last Admin: 04/05/18 21:39 Dose: 25 mg Hydralazine HCl (Apresoline -) 50 mg PO BID [facility] Last Admin: 04/06/18 09:56 Dose: 50 mg Sodium Chloride (1/2 Normal Saline) 1,000 mls @ 50 mls/hr IV ASDIR [facility] Stop: 04/06/18 12:38 Last Admin: 04/05/18 17:05 Dose: 50 mls/hr Insulin Aspart (Novolog Vial Sliding Scale -) 1 vial SQ [facility] PRN Reason: Protocol Last Admin: 04/06/18 06:28 Dose: Not Given Insulin Detemir (Levemir Vial) 25 units SQ AM [facility] Last Admin: 04/06/18 06:28 Dose: Not Given Insulin Detemir (Levemir Vial) 10 units SQ HS [facility] Last Admin: 04/05/18 21:32 Dose: 10 units Isosorbide Dinitrate (Isordil -) 20 mg PO BIDISORDIL [facility] Last Admin: 04/06/18 09:56 Dose: 20 mg Metoprolol Succinate (Toprol Xl -) 25 mg PO BID [facility] Last Admin: 04/06/18 09:56 Dose: 25 mg Neomycin/Polymyxin/Hydrocortisone (Cortisporin Otic Solution -) 4 drop AD Q6HPO [facility] Last Admin: 04/06/18 06:30 Dose: 4 drop Pramipexole Dihydrochloride (Mirapex -) 0.25 mg PO HS [facility] Last Admin: 04/05/18 21:33 Dose: 0.25 mg Prochlorperazine Maleate (Compazine -) 5 mg PO Q4H PRN PRN Reason: NAUSEA AND/OR VOMITING Tramadol HCl (Ultram -) 50 mg PO Q6H PRN PRN Reason: PAIN LEVEL 6-10 Last Admin: 04/06/18 10:00 Dose: 50 mg - Objective Vital Signs: Vital Signs Temperature 98.5 F 04/06/18 05:12 Pulse Rate 77 04/06/18 05:12 Respiratory Rate 20 04/06/18 05:12 Blood Pressure 152/76 04/06/18 05:12 O2 Sat by Pulse Oximetry (%) 94 L 04/05/18 21:00 Constitutional: Yes: Well Nourished, Calm Eyes: Yes: WNL HENT: Yes: WNL Neck: Yes: WNL Cardiovascular: Yes: Regular Rate and Rhythm, S1, S2 Respiratory: Yes: CTA Bilaterally Gastrointestinal: Yes: Normal Bowel Sounds, Soft Extremities: Yes: WNL Edema: No Labs: CBC, BMP 04/06/18 06:25 04/06/18 06:25 INR, PTT INR 1.14 (0.82-1.09) 04/03/18 00:10 Problem List - Problems (1) Acute CHF (congestive heart failure) Code(s): I50.9 - HEART FAILURE, UNSPECIFIED (2) Breast cancer Code(s): C50.919 - MALIGNANT NEOPLASM OF UNSP SITE OF UNSPECIFIED FEMALE BREAST (3) CKD (chronic kidney disease) Code(s): N18.9 - CHRONIC KIDNEY DISEASE, UNSPECIFIED (4) Anemia Code(s): D64.9 - ANEMIA, UNSPECIFIED Qualifiers: Anemia type: iron deficiency Iron deficiency anemia type: chronic blood loss Qualified Code(s): D50.0 - Iron deficiency anemia secondary to blood loss (chronic) (5) CAD (coronary artery disease) Code(s): I25.10 - ATHSCL HEART DISEASE OF [place] CORONARY ARTERY W/O ANG PCTRS Qualifiers: Coronary Disease-Associated Artery/Lesion type: [place] coronary artery Associated angina: with other forms of angina pectoris (6) CHF (congestive heart failure) Code(s): I50.9 - HEART FAILURE, UNSPECIFIED (7) COPD (chronic obstructive pulmonary disease) Code(s): J44.9 - CHRONIC OBSTRUCTIVE PULMONARY DISEASE, UNSPECIFIED (8) Diabetes mellitus Code(s): E11.9 - TYPE 2 DIABETES MELLITUS WITHOUT COMPLICATIONS (9) HTN (hypertension) Code(s): I10 - ESSENTIAL (PRIMARY) HYPERTENSION (10) PARVEZ on CPAP Code(s): G47.33 - OBSTRUCTIVE SLEEP APNEA (ADULT) (PEDIATRIC) (11) SOB (shortness of breath) Code(s): R06.02 - SHORTNESS OF BREATH Assessment/Plan Acute systolic CHF Ckd Chronic ischemic heart disease: Essential hypertension: Chronic obstructive pulmonary disea Obstructive sleep apnea Hypercholesterolemia Breast ca continue 02 inhaled bronchodilators no indication for systemic steroids at this time diuretics,beta-blockers,bp control,glycemic control monitor lytes,renal function DR HARO
--- NOTE | 2018-04-06 13:16 | PN ---
Progress Note (short form) - Note Progress Note: CC: S: s/p lasix 40 mg PO x 1 yesterday and 1/2 NS. + joint pain today. No dizziness, cp, palps, sob. Current Medications Albuterol/Ipratropium (Duoneb -) 1 amp NEB RQID [facility] Last Admin: 04/06/18 11:28 Dose: Not Given Diphenhydramine HCl (Benadryl -) 25 mg PO Q6H PRN PRN Reason: ITCHING Last Admin: 04/05/18 21:39 Dose: 25 mg Hydralazine HCl (Apresoline -) 50 mg PO BID [facility] Last Admin: 04/06/18 09:56 Dose: 50 mg Insulin Aspart (Novolog Vial Sliding Scale -) 1 vial SQ [facility] PRN Reason: Protocol Last Admin: 04/06/18 12:24 Dose: Not Given Insulin Detemir (Levemir Vial) 25 units SQ AM [facility] Last Admin: 04/06/18 06:28 Dose: Not Given Insulin Detemir (Levemir Vial) 10 units SQ [facility] Last Admin: 04/05/18 21:32 Dose: 10 units Isosorbide Dinitrate (Isordil -) 20 mg PO BIDISORDIL [facility] Last Admin: 04/06/18 09:56 Dose: 20 mg Metoprolol Succinate (Toprol Xl -) 25 mg PO BID [facility] Last Admin: 04/06/18 09:56 Dose: 25 mg Neomycin/Polymyxin/Hydrocortisone (Cortisporin Otic Solution -) 4 drop AD Q6HPO [facility] Last Admin: 04/06/18 06:30 Dose: 4 drop Pramipexole Dihydrochloride (Mirapex -) 0.25 mg PO HS [facility] Last Admin: 04/05/18 21:33 Dose: 0.25 mg Prochlorperazine Maleate (Compazine -) 5 mg PO Q4H PRN PRN Reason: NAUSEA AND/OR VOMITING Tramadol HCl (Ultram -) 50 mg PO Q6H PRN PRN Reason: PAIN LEVEL 6-10 Last Admin: 04/06/18 10:00 Dose: 50 mg Vital Signs - 24 hr 04/05/18 04/05/18 04/05/18 14:00 18:00 21:00 Temperature 97.4 F L 98.0 F Pulse Rate 76 76 Respiratory 19 20 Rate Blood Pressure 149/81 145/76 O2 Sat by Pulse 94 L Oximetry (%) 04/05/18 04/06/18 04/06/18 22:00 02:00 05:12 Temperature 98.4 F 98.3 F 98.5 F Pulse Rate 78 78 77 Respiratory 20 20 20 Rate Blood Pressure 141/79 155/80 152/76 O2 Sat by Pulse Oximetry (%) 04/06/18 10:00 Temperature 98.3 F Pulse Rate 78 Respiratory 20 Rate Blood Pressure 179/89 O2 Sat by Pulse 95 Oximetry (%) Intake & Output 04/04/18 04/05/18 04/06/18 04/07/18 07:59 07:59 07:59 07:59 Intake Total 1420 1050 Balance 1420 1050 Weight 213 lb 213 lb 211 lb 12.8 oz NAD, no jvd RRR nl s1, s2 no m/r/g diminished air movm't, nl eff aaox3 no le e/c/c abd nt nd pos bs pos dp pt, no carotid bruits no jaundice diaphoresis CBC, BMP 04/06/18 06:25 04/06/18 06:25 Echo 08/03: mod LVE, mod decr EF (global). nl RV. mild-mod MR, mod TR. RVSP 45. LHC 06/29: nl EDP; EF 40% (global); 50-60% OM1 (normal FFR); mild dz others MIBI 06/29 (pers): no STs; moder, partly rev defect AW c/w ischemia; mild LVE, mild-mod global LV hypo (40% EF); MILD TID MIBI 08/27 (pers): no ST change; TDS perfusion b/c of GI artifact and gating artifact; mild LV dilation and mild decr EFvisually (no TID) CXR: clear lungs ecg: sr, nl pr, qtc 535, no ischemic changes tele: sr, pvc's. acute systolic CHF: -nonisch CMP (prior cath for this w/u). LVEF MODERATELY REDUCED -has been on lasix 40 bid at home, doing well, but then got ivs yesterday for chemo and after noticed le edema and sob -feeling better after iv lasix, still with some le edema, cont iv lasix for now -cont METOPR 25 BID, HYDRALAZINE AND NITRATES -NO EVELINA/ARB, DUE TO RECURRENT SEVERE HYPERKALEMIA (DUE TO PT REPEATED NONCOMPLIANCE WITH REGULAR KAYEXALATE DOSING) 04/05: Improving clincially. ? overdiuresis. transitioned to PO lasix and also given low rate of IVF (1/2 NS). - 04/06 cr slightly better with downtitration of diuretic regimen and gentle IVF. holding lasix today. no signs of volume overload. Ckd: -cr at baseline, monitor with lasix -04/04: Creat 3.3 (2.9) . Continue lasix dosing for now. Monitor Creat in AM -04/05: Creat 3.9 (Was 3.3 yesterday), transitioned to PO lasix and also given low rate of IVF (1/2 NS). - 04/06: slight improvement in creatinine today. holding lasix today. renal following. Chronic ischemic heart disease: -NONOBSTR OM (INCL FFR NEGATIVE), NEVER HAD ANGINA. -no sigs acs here -cont home meds Essential hypertension: -controlled on current meds Chronic obstructive pulmonary disease -STABLE ON BB LONG TIME Obstructive sleep apnea -USES CPAP AT HOME Pure hypercholesterolemia -cont statin
--- NOTE | 2018-04-06 14:31 | PN ---
Progress Note, Physician History of Present Illness: Pt seen and examined at bedside. She is awake and alert. She denies shortness of breath or lower ext edema. - Current Medication List Current Medications: Active Medications Albuterol/Ipratropium (Duoneb -) 1 amp NEB RQID [facility] Last Admin: 04/06/18 11:28 Dose: Not Given Diphenhydramine HCl (Benadryl -) 25 mg PO Q6H PRN PRN Reason: ITCHING Last Admin: 04/05/18 21:39 Dose: 25 mg Hydralazine HCl (Apresoline -) 50 mg PO BID [facility] Last Admin: 04/06/18 09:56 Dose: 50 mg Insulin Aspart (Novolog Vial Sliding Scale -) 1 vial SQ ACHS [facility] PRN Reason: Protocol Last Admin: 04/06/18 12:24 Dose: Not Given Insulin Detemir (Levemir Vial) 25 units SQ AM [facility] Last Admin: 04/06/18 06:28 Dose: Not Given Insulin Detemir (Levemir Vial) 10 units SQ [facility] Last Admin: 04/05/18 21:32 Dose: 10 units Isosorbide Dinitrate (Isordil -) 20 mg PO BIDISORDIL [facility] Last Admin: 04/06/18 09:56 Dose: 20 mg Metoprolol Succinate (Toprol Xl -) 25 mg PO BID [facility] Last Admin: 04/06/18 09:56 Dose: 25 mg Neomycin/Polymyxin/Hydrocortisone (Cortisporin Otic Solution -) 4 drop AD Q6HPO [facility] Last Admin: 04/06/18 14:18 Dose: 4 drop Pramipexole Dihydrochloride (Mirapex -) 0.25 mg PO [facility] Last Admin: 04/05/18 21:33 Dose: 0.25 mg Prochlorperazine Maleate (Compazine -) 5 mg PO Q4H PRN PRN Reason: NAUSEA AND/OR VOMITING Tramadol HCl (Ultram -) 50 mg PO Q6H PRN PRN Reason: PAIN LEVEL 6-10 Last Admin: 04/06/18 10:00 Dose: 50 mg - Objective Vital Signs: Vital Signs Temperature 98.2 F 04/06/18 13:57 Pulse Rate 78 04/06/18 13:57 Respiratory Rate 20 04/06/18 13:57 Blood Pressure 131/84 04/06/18 13:57 O2 Sat by Pulse Oximetry (%) 95 04/06/18 10:00 Constitutional: Yes: Calm Eyes: Yes: Conjunctiva Clear HENT: Yes: Atraumatic Cardiovascular: Yes: S1, S2 Respiratory: Yes: CTA Bilaterally Gastrointestinal: Yes: Soft Genitourinary: Yes: WNL Musculoskeletal: Yes: WNL Edema: No Neurological: Yes: Oriented Psychiatric: Yes: Oriented Labs: CBC, BMP 04/06/18 06:25 04/06/18 06:25 INR, PTT INR 1.14 (0.82-1.09) 04/03/18 00:10 Problem List - Problems (1) Acute CHF (congestive heart failure) Code(s): I50.9 - HEART FAILURE, UNSPECIFIED (2) CKD (chronic kidney disease) Code(s): N18.9 - CHRONIC KIDNEY DISEASE, UNSPECIFIED Assessment/Plan Current Medications Generic Name Dose Route Start Last Admin Trade Name Freq PRN Reason Stop Dose Admin Albuterol/Ipratropium 1 amp 04/04/18 20:00 04/06/18 11:28 Duoneb - NEB Not Given RQID ALDO Diphenhydramine HCl 25 mg 04/04/18 14:42 04/05/18 21:39 Benadryl - PO 25 mg Q6H PRN Administration ITCHING Hydralazine HCl 50 mg 04/03/18 10:00 04/06/18 09:56 Apresoline - PO 50 mg BID ALDO Administration Insulin Aspart 1 vial 04/03/18 23:34 04/06/18 12:24 Novolog Vial Sliding Scale - SQ Not Given ACHS [facility] Protocol Insulin Detemir 25 units 04/04/18 07:00 04/06/18 06:28 Levemir Vial SQ Not Given AM ALDO Insulin Detemir 10 units 04/04/18 22:00 04/05/18 21:32 Levemir Vial SQ 10 units HS ALDO Administration Isosorbide Dinitrate 20 mg 04/03/18 10:00 04/06/18 09:56 Isordil - PO 20 mg BIDISORDIL ALDO Administration Metoprolol Succinate 25 mg 04/03/18 10:00 04/06/18 09:56 Toprol Xl - PO 25 mg BID ALDO Administration Neomycin/Polymyxin/Hydrocortisone 4 drop 04/04/18 12:00 04/06/18 14:18 Cortisporin Otic Solution - AD 4 drop Q6HPO ALDO Administration Pramipexole Dihydrochloride 0.25 mg 04/04/18 22:00 04/05/18 21:33 Mirapex - PO 0.25 mg HS ALDO Administration Prochlorperazine Maleate 5 mg 04/03/18 09:46 Compazine - PO Q4H PRN NAUSEA AND/OR VOMITING Tramadol HCl 50 mg 04/04/18 10:13 04/06/18 10:00 Ultram - PO 50 mg Q6H PRN Administration PAIN LEVEL 6-10 Impression 1. CKD 2. anemia 3. CHF 4. HTN 5. DM 6. hyperlipidemia 7. anxiety 8. uterine cancer 9. hx GI bleed 10. COPD Plan - pt received fluids overnight - check bmp daily - will order renal ultrasound - low potassium diet - lasix on hold - avoid nsaids - potassium is stable - will follow
--- NOTE | 2018-04-06 16:58 | PN ---
Progress Note, Physician Chief Complaint: AWAKE ALERT C/O GENERALIZED BODY ACHES NO FEVER - Current Medication List Current Medications: Active Medications Acetaminophen (Tylenol -) 650 mg PO Q6H PRN PRN Reason: MILD PAIN Albuterol/Ipratropium (Duoneb -) 1 amp NEB RQID [facility] Last Admin: 04/06/18 11:28 Dose: Not Given Diphenhydramine HCl (Benadryl -) 25 mg PO Q6H PRN PRN Reason: ITCHING Last Admin: 04/05/18 21:39 Dose: 25 mg Hydralazine HCl (Apresoline -) 50 mg PO BID [facility] Last Admin: 04/06/18 09:56 Dose: 50 mg Insulin Aspart (Novolog Vial Sliding Scale -) 1 vial SQ [facility] PRN Reason: Protocol Last Admin: 04/06/18 12:24 Dose: Not Given Insulin Detemir (Levemir Vial) 25 units SQ AM [facility] Last Admin: 04/06/18 06:28 Dose: Not Given Insulin Detemir (Levemir Vial) 10 units SQ [facility] Last Admin: 04/05/18 21:32 Dose: 10 units Isosorbide Dinitrate (Isordil -) 20 mg PO BIDISORDIL [facility] Last Admin: 04/06/18 09:56 Dose: 20 mg Metoprolol Succinate (Toprol Xl -) 25 mg PO BID [facility] Last Admin: 04/06/18 09:56 Dose: 25 mg Neomycin/Polymyxin/Hydrocortisone (Cortisporin Otic Solution -) 4 drop AD Q6HPO [facility] Last Admin: 04/06/18 14:18 Dose: 4 drop Oxycodone HCl (Roxicodone -) 5 mg PO Q6H PRN PRN Reason: PAIN LEVEL 7 - 10 Pramipexole Dihydrochloride (Mirapex -) 0.25 mg PO [facility] Last Admin: 04/05/18 21:33 Dose: 0.25 mg Prochlorperazine Maleate (Compazine -) 5 mg PO Q4H PRN PRN Reason: NAUSEA AND/OR VOMITING - Objective Vital Signs: Vital Signs Temperature 98.2 F 04/06/18 13:57 Pulse Rate 78 04/06/18 13:57 Respiratory Rate 20 04/06/18 13:57 Blood Pressure 131/84 04/06/18 13:57 O2 Sat by Pulse Oximetry (%) 95 04/06/18 10:00 Constitutional: Yes: Moderate Distress Eyes: Yes: WNL HENT: Yes: WNL, Other Cardiovascular: Yes: WNL Respiratory: Yes: WNL Gastrointestinal: Yes: WNL Genitourinary: Yes: WNL Musculoskeletal: Yes: Muscle Pain, Muscle Weakness Extremities: Yes: WNL Edema: No Peripheral Pulses WNL: Yes Integumentary: Yes: WNL Wound/Incision: Yes: Clean/Dry Neurological: Yes: Other ...Motor Strength: LLE, RLE Psychiatric: Yes: Other Labs: CBC, BMP 04/06/18 06:25 04/06/18 06:25 INR, PTT INR 1.14 (0.82-1.09) 04/03/18 00:10 Problem List - Problems (1) Acute CHF (congestive heart failure) Code(s): I50.9 - HEART FAILURE, UNSPECIFIED (2) Ehdxa-zi-xbcbsit respiratory failure Code(s): J96.20 - ACUTE AND CHR RESP FAILURE, UNSP W HYPOXIA OR HYPERCAPNIA (3) Breast cancer Code(s): C50.919 - MALIGNANT NEOPLASM OF UNSP SITE OF UNSPECIFIED FEMALE BREAST (4) CKD (chronic kidney disease) Code(s): N18.9 - CHRONIC KIDNEY DISEASE, UNSPECIFIED (5) COPD exacerbation Code(s): J44.1 - CHRONIC OBSTRUCTIVE PULMONARY DISEASE W (ACUTE) EXACERBATION (6) DVT prophylaxis Code(s): [id number] - (7) Abnormal EKG Code(s): R94.31 - ABNORMAL ELECTROCARDIOGRAM [ECG] [EKG] (8) Generalized muscle ache Code(s): M79.1 - MYALGIA Assessment/Plan PAIN CONTROL WITH OXYCODONE/TYLENOL CARDIOLOGY WORKUP IN PROGRESS CONTINUE TELEMETRY MONITORING GENERALIZED BODY ACHES? CHEMOTHERAPY EFFECT? RENAL WORKUP FOR ACUTE RENAL DISEASE CREATININE 3.7 INCREASE FLUIDS TOLERATED DVT PROPHYLAXIS
[2018-04-06] MEDS: oxyCODONE HCL 5 MG TABLET PO PRN (17:34)
--- NOTE | 2018-04-06 19:24 | PN ---
Progress Note, Physician Chief Complaint: sitting in bed nauseas and weak History of Present Illness: dm hyperglycemia, diabetic GP,bloating,nausea, poor appetite - Current Medication List Current Medications: Active Medications Acetaminophen (Tylenol -) 650 mg PO Q6H PRN PRN Reason: MILD PAIN Albuterol/Ipratropium (Duoneb -) 1 amp NEB RQID [facility] Last Admin: 04/06/18 16:00 Dose: 1 amp Diphenhydramine HCl (Benadryl -) 25 mg PO Q6H PRN PRN Reason: ITCHING Last Admin: 04/05/18 21:39 Dose: 25 mg Hydralazine HCl (Apresoline -) 50 mg PO BID [facility] Last Admin: 04/06/18 09:56 Dose: 50 mg Insulin Aspart (Novolog Vial Sliding Scale -) 1 vial SQ [facility] PRN Reason: Protocol Last Admin: 04/06/18 17:23 Dose: Not Given Insulin Detemir (Levemir Vial) 25 units SQ AM [facility] Last Admin: 04/06/18 06:28 Dose: Not Given Insulin Detemir (Levemir Vial) 10 units SQ HS [facility] Last Admin: 04/05/18 21:32 Dose: 10 units Isosorbide Dinitrate (Isordil -) 20 mg PO BIDISORDIL [facility] Last Admin: 04/06/18 17:32 Dose: 20 mg Metoprolol Succinate (Toprol Xl -) 25 mg PO BID [facility] Last Admin: 04/06/18 09:56 Dose: 25 mg Neomycin/Polymyxin/Hydrocortisone (Cortisporin Otic Solution -) 4 drop AD Q6HPO [facility] Last Admin: 04/06/18 18:39 Dose: Not Given Oxycodone HCl (Roxicodone -) 5 mg PO Q6H PRN PRN Reason: PAIN LEVEL 7 - 10 Last Admin: 04/06/18 17:34 Dose: 5 mg Pramipexole Dihydrochloride (Mirapex -) 0.25 mg PO [facility] Last Admin: 04/05/18 21:33 Dose: 0.25 mg Prochlorperazine Maleate (Compazine -) 5 mg PO Q4H PRN PRN Reason: NAUSEA AND/OR VOMITING - Objective Vital Signs: Vital Signs Temperature 98.2 F 04/06/18 13:57 Pulse Rate 78 04/06/18 13:57 Respiratory Rate 20 04/06/18 13:57 Blood Pressure 131/84 04/06/18 13:57 O2 Sat by Pulse Oximetry (%) 95 04/06/18 10:00 Constitutional: Yes: Anxious Eyes: Yes: EOM Intact HENT: Yes: Normocephalic Neck: Yes: Trachea Midline Cardiovascular: Yes: Regular Rate and Rhythm Respiratory: Yes: CTA Bilaterally Gastrointestinal: Yes: Abdomen, Obese, Hypoactive Bowel Sounds ...Rectal Exam: Yes: Deferred Genitourinary: Yes: WNL Integumentary: Yes: Onychomycosis, Venous Stasis Changes Psychiatric: Yes: Alert, Oriented Labs: CBC, BMP 04/06/18 06:25 04/06/18 06:25 INR, PTT INR 1.14 (0.82-1.09) 04/03/18 00:10 Problem List - Problems (1) Controlled type 2 diabetes mellitus with diabetic peripheral angiopathy without gangrene Code(s): E11.51 - TYPE 2 DIABETES W DIABETIC PERIPHERAL ANGIOPATH W/O GANGRENE (2) Abnormal EKG Code(s): R94.31 - ABNORMAL ELECTROCARDIOGRAM [ECG] [EKG] (3) Acute CHF (congestive heart failure) Code(s): I50.9 - HEART FAILURE, UNSPECIFIED (4) CKD (chronic kidney disease) Code(s): N18.9 - CHRONIC KIDNEY DISEASE, UNSPECIFIED (5) DVT prophylaxis Code(s): [id number] - Assessment/Plan Current Active Problems Abnormal EKG (Acute) Acute CHF (congestive heart failure) (Acute) Breast cancer (Acute) CKD (chronic kidney disease) (Acute) COPD exacerbation (Acute) Controlled type 2 diabetes mellitus with diabetic peripheral angiopathy without gangrene (Acute) DVT prophylaxis (Acute) Generalized muscle ache (Acute) Hypomagnesemia (Acute) Leukocytosis (Acute) Abnormal Lab Results 04/06/18 04/06/18 06:25 06:25 WBC 17.1 H D RBC 2.79 L Hgb 7.9 L Hct 25.2 L MCHC 31.4 L RDW 16.5 H Plt Count 119 L MPV 11.8 H Neutrophils % (Manual) 97.0 H Lymphocytes % (Manual) 1.0 L D Chloride 112 H Carbon Dioxide 19 L BUN 126 H* Creatinine 3.7 H Calcium 7.1 L Alkaline Phosphatase 174 H Albumin 3.1 L Laboratory Results - last 24 hr 04/05/18 04/06/18 04/06/18 21:29 05:09 06:25 WBC 17.1 H D RBC 2.79 L Hgb 7.9 L Hct 25.2 L MCV 90.2 MCH 28.3 MCHC 31.4 L RDW 16.5 H Plt Count 119 L MPV 11.8 H Total Counted 100 Neutrophils % No Result Required. Neutrophils % (Manual) 97.0 H Band Neutrophils % 2.0 Lymphocytes % No Result Required. Lymphocytes % (Manual) 1.0 L D Sodium Potassium Chloride Carbon Dioxide Anion Gap BUN Creatinine Creat Clearance w eGFR POC Glucometer 176 123 Random Glucose Calcium Magnesium Total Bilirubin AST ALT Alkaline Phosphatase Total Protein Albumin 04/06/18 06:25 WBC RBC Hgb Hct MCV MCH MCHC RDW Plt Count MPV Total Counted Neutrophils % Neutrophils % (Manual) Band Neutrophils % Lymphocytes % Lymphocytes % (Manual) Sodium 139 Potassium 5.1 Chloride 112 H Carbon Dioxide 19 L Anion Gap 8 BUN 126 H* Creatinine 3.7 H Creat Clearance w eGFR 12.41 POC Glucometer Random Glucose 105 Calcium 7.1 L Magnesium 2.2 Total Bilirubin 0.6 AST 21 ALT 25 Alkaline Phosphatase 174 H Total Protein 6.6 Albumin 3.1 L Laboratory Tests 04/03/18 05:57 Hemoglobin A1c % 10.0 H plan: continue same levemir dose will need bgm novolog scale as op follow up hba1c in 3month nutrition evaluation
[2018-04-06] MEDS: PRAMIPEXOLE DIHYDROCHLORIDE 0.25 MG TABLET PO SCH (22:17)
--- NOTE | 2018-04-06 23:52 | PN ---
Progress Note (short form) - Note Progress Note: Patient seen and examined c/o body aches AFVSs Cor: RSR, No murmurs, No gallops Lungs: Clear to P&A Abd: Soft, Normal bowel sounds, No organomegaly Ext:No significant edema Labs/Meds reviewed A/P 62 y/o female with triple negative breast cancer , multiple medical comorbidities (CKD, CHF, HBP, DM) -On treatment with taxotere/cytoxan, cycle 1 da-On Venofer for iron deficinecy , given on 04/02 --bone pains due to neulasta --monitor CBC
[2018-04-07] MEDS: INSULIN SLIDING SCALE (NOVOLOG) 1 VIAL SQ SCH ×4 (06:29→21:16)
[2018-04-07] MEDS: INSULIN (LEVEMIR) 100 UNITS/ML UNITS SQ SCH ×2 (06:30→21:19)
[2018-04-07] MEDS: NEOMYCIN/POLYMYXN/HC OTIC SOLUTION 10 ML BOTTLE AD SCH ×4 (06:31→17:52)
[2018-04-07 08:23] LABS: CHLORIDE 115 mmol/L (98-107); POTASSIUM 5.4 mmol/L (3.5-5.1); SODIUM 142 mmol/L (136-145)
[2018-04-07] MEDS: ALBUTEROL SO4 2.5/IPRATROPIUM 0.5 INH SOL 3 ML VIAL.NEB. NEB SCH ×4 (08:35→19:09)
[2018-04-07 09:26] LABS: ALBUMIN 3.1 g/dl (3.4-5.0); ALK PHOS 168 U/L (45-117); ANION GAP 10 (8-16); BILIRUBIN,TOTAL 0.7 mg/dL (0.2-1.0); CALCIUM 7.3 mg/dL (8.5-10.1); CO2 17 mmol/L (21-32); CREATININE 3.4 mg/dL (0.55-1.02); GLUCOSE,RANDOM 135 mg/dL (74-106); SGOT/AST 18 U/L (15-37); SGPT/ALT 23 U/L (12-78); TOT PROT 6.3 g/dl (6.4-8.2)
[2018-04-07 09:38] LABS: BLOOD UREA NITROGEN 119 mg/dL (7-18)
[2018-04-07] MEDS ORDERED: PT OWN MED DRAWER 7, Y5N ONE (09:48)
[2018-04-07] MEDS: metoPROLOL SUCCINATE 25 MG TAB.SR.24H (FP) PO SCH ×2 (09:51→21:13)
[2018-04-07] MEDS: ISOSORBIDE DINITRATE 10 MG TABLET (FP) PO SCH ×2 (09:51→17:50)
[2018-04-07] MEDS: hydrALAZINE HCL 50 MG TABLET (FP) PO SCH ×2 (09:51→21:13)
[2018-04-07] MEDS: oxyCODONE HCL 5 MG TABLET PO PRN (10:11)
[2018-04-07] MEDS: ACETAMINOPHEN 325 MG TABLET (FP) PO PRN (10:11)
[2018-04-07] MEDS: PROCHLORPERAZINE MALEATE 5 MG TABLET PO PRN ×4 (10:13→22:53)
--- NOTE | 2018-04-07 10:24 | PN ---
Progress Note, Physician History of Present Illness: PULMONARY ALERT,NO DISTRESS,-SOB,-CP - Current Medication List Current Medications: Active Medications Acetaminophen (Tylenol -) 650 mg PO Q6H PRN PRN Reason: MILD PAIN Last Admin: 04/07/18 10:11 Dose: 650 mg Albuterol/Ipratropium (Duoneb -) 1 amp NEB RQID [facility] Last Admin: 04/07/18 08:35 Dose: 1 amp Diphenhydramine HCl (Benadryl -) 25 mg PO Q6H PRN PRN Reason: ITCHING Last Admin: 04/05/18 21:39 Dose: 25 mg Hydralazine HCl (Apresoline -) 50 mg PO BID [facility] Last Admin: 04/07/18 09:51 Dose: 50 mg Insulin Aspart (Novolog Vial Sliding Scale -) 1 vial SQ [facility] PRN Reason: Protocol Last Admin: 04/07/18 06:29 Dose: 4 units Insulin Detemir (Levemir Vial) 25 units SQ AM [facility] Last Admin: 04/07/18 06:30 Dose: 25 units Insulin Detemir (Levemir Vial) 10 units SQ HS [facility] Last Admin: 04/06/18 21:51 Dose: 10 units Isosorbide Dinitrate (Isordil -) 20 mg PO BIDISORDIL [facility] Last Admin: 04/07/18 09:51 Dose: 20 mg Metoprolol Succinate (Toprol Xl -) 25 mg PO BID [facility] Last Admin: 04/07/18 09:51 Dose: 25 mg Neomycin/Polymyxin/Hydrocortisone (Cortisporin Otic Solution -) 4 drop AD Q6HPO [facility] Last Admin: 04/07/18 06:31 Dose: 4 drop Oxycodone HCl (Roxicodone -) 5 mg PO Q6H PRN PRN Reason: PAIN LEVEL 7 - 10 Last Admin: 04/07/18 10:11 Dose: 5 mg Pramipexole Dihydrochloride (Mirapex -) 0.25 mg PO HS [facility] Last Admin: 04/06/18 22:17 Dose: 0.25 mg Prochlorperazine Maleate (Compazine -) 5 mg PO Q4H PRN PRN Reason: NAUSEA AND/OR VOMITING Last Admin: 04/07/18 10:13 Dose: 5 mg - Objective Vital Signs: Vital Signs Temperature 98.3 F 04/07/18 05:42 Pulse Rate 77 04/07/18 05:42 Respiratory Rate 20 04/07/18 05:42 Blood Pressure 157/77 04/07/18 05:42 O2 Sat by Pulse Oximetry (%) 94 L 04/06/18 20:21 Constitutional: Yes: Well Nourished, Calm Eyes: Yes: WNL HENT: Yes: WNL Neck: Yes: WNL Cardiovascular: Yes: Regular Rate and Rhythm, S1, S2 Respiratory: Yes: CTA Bilaterally Gastrointestinal: Yes: Normal Bowel Sounds, Soft Extremities: Yes: WNL Edema: Yes Labs: CBC, BMP 04/07/18 06:56 INR, PTT INR 1.14 (0.82-1.09) 04/03/18 00:10 Problem List - Problems (1) Acute CHF (congestive heart failure) Code(s): I50.9 - HEART FAILURE, UNSPECIFIED (2) Breast cancer Code(s): C50.919 - MALIGNANT NEOPLASM OF UNSP SITE OF UNSPECIFIED FEMALE BREAST (3) CKD (chronic kidney disease) Code(s): N18.9 - CHRONIC KIDNEY DISEASE, UNSPECIFIED (4) Anemia Code(s): D64.9 - ANEMIA, UNSPECIFIED Qualifiers: Anemia type: iron deficiency Iron deficiency anemia type: chronic blood loss Qualified Code(s): D50.0 - Iron deficiency anemia secondary to blood loss (chronic) (5) CAD (coronary artery disease) Code(s): I25.10 - ATHSCL HEART DISEASE OF [place] CORONARY ARTERY W/O ANG PCTRS Qualifiers: Coronary Disease-Associated Artery/Lesion type: [place] coronary artery Associated angina: with other forms of angina pectoris (6) CHF (congestive heart failure) Code(s): I50.9 - HEART FAILURE, UNSPECIFIED (7) COPD (chronic obstructive pulmonary disease) Code(s): J44.9 - CHRONIC OBSTRUCTIVE PULMONARY DISEASE, UNSPECIFIED (8) Diabetes mellitus Code(s): E11.9 - TYPE 2 DIABETES MELLITUS WITHOUT COMPLICATIONS (9) HTN (hypertension) Code(s): I10 - ESSENTIAL (PRIMARY) HYPERTENSION (10) PARVEZ on CPAP Code(s): G47.33 - OBSTRUCTIVE SLEEP APNEA (ADULT) (PEDIATRIC) (11) SOB (shortness of breath) Code(s): R06.02 - SHORTNESS OF BREATH Assessment/Plan Acute systolic CHF Chronic ischemic heart disease: Essential hypertension: Chronic obstructive pulmonary disease Obstructive sleep apnea Hypercholesterolemia Breast ca Acute on chronic kidney disease continue 02 inhaled bronchodilators no indication for systemic steroids at this time diuretics,beta-blockers,bp control,glycemic control monitor lytes,renal function DR HARO
--- NOTE | 2018-04-07 13:04 | PN ---
Progress Note (short form) - Note Progress Note: CC: LE edema S: lasix held yesterday. No dizziness, cp, palps, sob. Current Medications Acetaminophen (Tylenol -) 650 mg PO Q6H PRN PRN Reason: MILD PAIN Last Admin: 04/07/18 10:11 Dose: 650 mg Albuterol/Ipratropium (Duoneb -) 1 amp NEB RQID [facility] Last Admin: 04/07/18 08:35 Dose: 1 amp Diphenhydramine HCl (Benadryl -) 25 mg PO Q6H PRN PRN Reason: ITCHING Last Admin: 04/05/18 21:39 Dose: 25 mg Hydralazine HCl (Apresoline -) 50 mg PO BID [facility] Last Admin: 04/07/18 09:51 Dose: 50 mg Insulin Aspart (Novolog Vial Sliding Scale -) 1 vial SQ ACHS [facility] PRN Reason: Protocol Last Admin: 04/07/18 12:06 Dose: Not Given Insulin Detemir (Levemir Vial) 25 units SQ AM [facility] Last Admin: 04/07/18 06:30 Dose: 25 units Insulin Detemir (Levemir Vial) 10 units SQ HS [facility] Last Admin: 04/06/18 21:51 Dose: 10 units Isosorbide Dinitrate (Isordil -) 20 mg PO BIDISORDIL [facility] Last Admin: 04/07/18 09:51 Dose: 20 mg Metoprolol Succinate (Toprol Xl -) 25 mg PO BID [facility] Last Admin: 04/07/18 09:51 Dose: 25 mg Neomycin/Polymyxin/Hydrocortisone (Cortisporin Otic Solution -) 4 drop AD Q6HPO [facility] Last Admin: 04/07/18 06:31 Dose: 4 drop Oxycodone HCl (Roxicodone -) 5 mg PO Q6H PRN PRN Reason: PAIN LEVEL 7 - 10 Last Admin: 04/07/18 10:11 Dose: 5 mg Pramipexole Dihydrochloride (Mirapex -) 0.25 mg PO HS [facility] Last Admin: 04/06/18 22:17 Dose: 0.25 mg Prochlorperazine Maleate (Compazine -) 5 mg PO Q4H PRN PRN Reason: NAUSEA AND/OR VOMITING Last Admin: 04/07/18 10:13 Dose: 5 mg Vital Signs - 24 hr 04/06/18 04/06/18 04/06/18 13:57 17:00 20:21 Temperature 98.2 F 97.8 F Pulse Rate 78 82 Respiratory 20 20 Rate Blood Pressure 131/84 179/86 O2 Sat by Pulse 94 L Oximetry (%) 04/06/18 04/07/18 04/07/18 21:00 02:00 05:42 Temperature 98.6 F 97.9 F 98.3 F Pulse Rate 82 79 77 Respiratory 18 20 20 Rate Blood Pressure 148/87 144/61 157/77 O2 Sat by Pulse Oximetry (%) Intake & Output 04/05/18 04/06/18 04/07/18 04/08/18 07:59 07:59 07:59 07:59 Intake Total 1050 710 240 Balance 1050 710 240 Weight 213 lb 211 lb 12.8 oz 210 lb 9.6 oz NAD, no jvd RRR nl s1, s2 no m/r/g ctab, nl eff aaox3 no le e/c/c abd nt nd pos bs pos dp pt, no carotid bruits no jaundice diaphoresis CBC, BMP 04/06/18 06:25 04/07/18 06:56 tele: sr, ecg: sr, nl pr, qtc 535, no ischemic changes Echo 08/03: mod LVE, mod decr EF (global). nl RV. mild-mod MR, mod TR. RVSP 45. LHC 06/29: nl EDP; EF 40% (global); 50-60% OM1 (normal FFR); mild dz others MIBI 06/29 (pers): no STs; moder, partly rev defect AW c/w ischemia; mild LVE, mild-mod global LV hypo (40% EF); MILD TID MIBI 08/27 (pers): no ST change; TDS perfusion b/c of GI artifact and gating artifact; mild LV dilation and mild decr EFvisually (no TID) CXR: clear lungs ASSESSMENT/PLAN 62 yo smoker with h/o systolic cardiomyopathy, non-obstructive cad, HTN, HL, pHTN, PAD, mod PARVEZ on cpap, CKD (cr 1.8 - 2.2), DM, h/o GIB s/p cauterization of avm's, breast cancer on chemo here with high bp, legs swollen. acute systolic CHF: -nonisch CMP (prior cath for this w/u). LVEF MODERATELY REDUCED -has been on lasix 40 bid at home, doing well, but then got ivs yesterday for chemo and after noticed le edema and sob -feeling better after iv lasix, still with some le edema, cont iv lasix for now -cont METOPR 25 BID, HYDRALAZINE AND NITRATES -NO EVELINA/ARB, DUE TO RECURRENT SEVERE HYPERKALEMIA (DUE TO PT REPEATED NONCOMPLIANCE WITH REGULAR KAYEXALATE DOSING) 04/05: Improving clincially. ? overdiuresis. transitioned to PO lasix and also given low rate of IVF (1/2 NS). - 04/06-04/07 cr slightly better with downtitration of diuretic regimen and gentle IVF. con't to hold lasix. no signs of volume overload. Ckd: -cr at baseline, monitor with lasix -04/04: Creat 3.3 (2.9) . Continue lasix dosing for now. Monitor Creat in AM -04/05: Creat 3.9 (Was 3.3 yesterday), transitioned to PO lasix and also given low rate of IVF (1/2 NS). - 04/06-04/07: slight improvement in creatinine today. holding lasix. renal following. Chronic ischemic heart disease: -NONOBSTR OM (INCL FFR NEGATIVE), NEVER HAD ANGINA. -no sigs acs here -cont home meds Essential hypertension: -controlled on current meds - 04/07: sbp's slightly elevated today, will uptitrate isordil. Chronic obstructive pulmonary disease -STABLE ON BB LONG TIME Obstructive sleep apnea -USES CPAP AT HOME Pure hypercholesterolemia -correction has been off statin here. given slightly elevated ck on admit and current myalgias, arthralgias, ok to hold. Can resume as outpatient at discretion of her outpatient md's. breast ca - honc following. On treatment with taxotere/cytoxan, cycle 1 D1. On Venofer for iron deficinecy , given on 04/02 --bone pains due to neulasta. - + anemia and thrombocytopenia
--- NOTE | 2018-04-07 13:50 | PN ---
Progress Note (short form) - Note Progress Note: pt seen and examined +nausea +body pains +constipation Last Vital Signs Temp Pulse Resp BP Pulse Ox 98.3 F 77 20 157/77 94 L 04/07/18 05:42 04/07/18 05:42 04/07/18 05:42 04/07/18 05:42 04/06/18 20:21 CBC, BMP 04/06/18 06:25 04/07/18 06:56 Current Medications Generic Name Dose Route Start Last Admin Trade Name Freq PRN Reason Stop Dose Admin Acetaminophen 650 mg 04/06/18 16:56 04/07/18 10:11 Tylenol - PO 650 mg Q6H PRN Administration MILD PAIN Albuterol/Ipratropium 1 amp 04/04/18 20:00 04/07/18 12:45 Duoneb - NEB 1 amp RQID ALDO Administration Diphenhydramine HCl 25 mg 04/04/18 14:42 04/05/18 21:39 Benadryl - PO 25 mg Q6H PRN Administration ITCHING Hydralazine HCl 50 mg 04/03/18 10:00 04/07/18 09:51 Apresoline - PO 50 mg BID ALDO Administration Insulin Aspart 1 vial 04/03/18 23:34 04/07/18 12:06 Novolog Vial Sliding Scale - SQ Not Given ACHS [facility] Protocol Insulin Detemir 25 units 04/04/18 07:00 04/07/18 06:30 Levemir Vial SQ 25 units AM [facility]DO Administration Insulin Detemir 10 units 04/04/18 22:00 04/06/18 21:51 Levemir Vial SQ 10 units HS ALDO Administration Isosorbide Dinitrate 30 mg 04/07/18 18:00 Isordil - PO BIDISORDIL ALDO Metoprolol Succinate 25 mg 04/03/18 10:00 04/07/18 09:51 Toprol Xl - PO 25 mg BID ALDO Administration Neomycin/Polymyxin/Hydrocortisone 4 drop 04/04/18 12:00 04/07/18 06:31 Cortisporin Otic Solution - AD 4 drop Q6HPO ALDO Administration Oxycodone HCl 5 mg 04/06/18 16:55 04/07/18 10:11 Roxicodone - PO 5 mg Q6H PRN Administration PAIN LEVEL 7 - 10 Polyethylene Glycol 17 gm 04/07/18 14:00 Miralax (For Daily Use) - PO DAILY ALDO Pramipexole Dihydrochloride 0.25 mg 04/04/18 22:00 04/06/18 22:17 Mirapex - PO 0.25 mg HS ALDO Administration Prochlorperazine Maleate 5 mg 04/03/18 09:46 04/07/18 10:13 Compazine - PO 5 mg Q4H PRN Administration NAUSEA AND/OR VOMITING AFVSs Cor: RSR, No murmurs, No gallops Lungs: Clear to P&A Abd: Soft, Normal bowel sounds, No organomegaly Ext:No significant edema Labs/Meds reviewed A/P 62 y/o female with triple negative breast cancer , multiple medical comorbidities (CKD, CHF, HBP, DM) -On treatment with taxotere/cytoxan, cycle 1 D1 On Venofer for iron deficinecy , given on 04/02 --bone pains due to neulasta --monitor CBC, assess for PRBCs tomorrow or else will be given IV Iron 04/09 if here. -Miralax for constipation -compazine for nausea.
--- NOTE | 2018-04-07 15:12 | PN ---
Progress Note, Physician Chief Complaint: AWAKE ALERT MILD DISTRESS C/O MUSCLE ACHES - Current Medication List Current Medications: Active Medications Acetaminophen (Tylenol -) 650 mg PO Q6H PRN PRN Reason: MILD PAIN Last Admin: 04/07/18 10:11 Dose: 650 mg Albuterol/Ipratropium (Duoneb -) 1 amp NEB RQID [facility] Last Admin: 04/07/18 12:45 Dose: 1 amp Diphenhydramine HCl (Benadryl -) 25 mg PO Q6H PRN PRN Reason: ITCHING Last Admin: 04/05/18 21:39 Dose: 25 mg Hydralazine HCl (Apresoline -) 50 mg PO BID [facility] Last Admin: 04/07/18 09:51 Dose: 50 mg Insulin Aspart (Novolog Vial Sliding Scale -) 1 vial SQ [facility] PRN Reason: Protocol Last Admin: 04/07/18 12:06 Dose: Not Given Insulin Detemir (Levemir Vial) 25 units SQ AM [facility] Last Admin: 04/07/18 06:30 Dose: 25 units Insulin Detemir (Levemir Vial) 10 units SQ HS [facility] Last Admin: 04/06/18 21:51 Dose: 10 units Isosorbide Dinitrate (Isordil -) 30 mg PO BIDISORDIL [facility] Metoprolol Succinate (Toprol Xl -) 25 mg PO BID [facility] Last Admin: 04/07/18 09:51 Dose: 25 mg Neomycin/Polymyxin/Hydrocortisone (Cortisporin Otic Solution -) 4 drop AD Q6HPO [facility] Last Admin: 04/07/18 14:01 Dose: Not Given Oxycodone HCl (Roxicodone -) 5 mg PO Q6H PRN PRN Reason: PAIN LEVEL 7 - 10 Last Admin: 04/07/18 10:11 Dose: 5 mg Polyethylene Glycol (Miralax (For Daily Use) -) 17 gm PO DAILY [facility] Pramipexole Dihydrochloride (Mirapex -) 0.25 mg PO [facility] Last Admin: 04/06/18 22:17 Dose: 0.25 mg Prochlorperazine Maleate (Compazine -) 5 mg PO Q4H PRN PRN Reason: NAUSEA AND/OR VOMITING Last Admin: 04/07/18 14:30 Dose: 5 mg - Objective Vital Signs: Vital Signs Temperature 98.3 F 04/07/18 05:42 Pulse Rate 77 04/07/18 05:42 Respiratory Rate 20 04/07/18 05:42 Blood Pressure 157/77 04/07/18 05:42 O2 Sat by Pulse Oximetry (%) 94 L 04/06/18 20:21 Constitutional: Yes: Mild Distress Eyes: Yes: WNL HENT: Yes: WNL Neck: Yes: WNL Cardiovascular: Yes: WNL Respiratory: Yes: WNL Gastrointestinal: Yes: WNL Genitourinary: Yes: WNL Musculoskeletal: Yes: Muscle Pain, Muscle Weakness Extremities: Yes: WNL Edema: Yes Peripheral Pulses WNL: Yes Integumentary: Yes: WNL Wound/Incision: Yes: Clean/Dry Neurological: Yes: WNL ...Motor Strength: WNL Psychiatric: Yes: WNL Labs: CBC, BMP 04/06/18 06:25 04/07/18 06:56 INR, PTT INR 1.14 (0.82-1.09) 04/03/18 00:10 Problem List - Problems (1) Acute CHF (congestive heart failure) Code(s): I50.9 - HEART FAILURE, UNSPECIFIED (2) Snagg-mx-izibqxl respiratory failure Code(s): J96.20 - ACUTE AND CHR RESP FAILURE, UNSP W HYPOXIA OR HYPERCAPNIA (3) Breast cancer Code(s): C50.919 - MALIGNANT NEOPLASM OF UNSP SITE OF UNSPECIFIED FEMALE BREAST (4) CKD (chronic kidney disease) Code(s): N18.9 - CHRONIC KIDNEY DISEASE, UNSPECIFIED (5) COPD exacerbation Code(s): J44.1 - CHRONIC OBSTRUCTIVE PULMONARY DISEASE W (ACUTE) EXACERBATION (6) DVT prophylaxis Code(s): [id number] - (7) Abnormal EKG Code(s): R94.31 - ABNORMAL ELECTROCARDIOGRAM [ECG] [EKG] (8) Generalized muscle ache Code(s): M79.1 - MYALGIA Assessment/Plan PAIN CONTROL WITH OXYCODONE/TYLENOL CARDIOLOGY WORKUP IN PROGRESS CONTINUE TELEMETRY MONITORING GENERALIZED BODY ACHES? CHEMOTHERAPY EFFECT? RENAL WORKUP FOR ACUTE RENAL DISEASE CREATININE 3.4 INCREASE FLUIDS TOLERATED DVT PROPHYLAXIS CHECK K+ IN AM
[2018-04-07] MEDS: POLYETHYLENE GLYCOL 3350 119 GM BTL PO SCH (15:45)
--- NOTE | 2018-04-07 16:34 | PN ---
Progress Note, Physician History of Present Illness: Pt seen and examined at bedside. She does complains of shortness of breath with ambulation. - Current Medication List Current Medications: Active Medications Acetaminophen (Tylenol -) 650 mg PO Q6H PRN PRN Reason: MILD PAIN Last Admin: 04/07/18 10:11 Dose: 650 mg Albuterol/Ipratropium (Duoneb -) 1 amp NEB RQID [facility] Last Admin: 04/07/18 12:45 Dose: 1 amp Diphenhydramine HCl (Benadryl -) 25 mg PO Q6H PRN PRN Reason: ITCHING Last Admin: 04/05/18 21:39 Dose: 25 mg Hydralazine HCl (Apresoline -) 50 mg PO BID [facility] Last Admin: 04/07/18 09:51 Dose: 50 mg Insulin Aspart (Novolog Vial Sliding Scale -) 1 vial SQ ACHS [facility] PRN Reason: Protocol Last Admin: 04/07/18 12:06 Dose: Not Given Insulin Detemir (Levemir Vial) 25 units SQ AM [facility] Last Admin: 04/07/18 06:30 Dose: 25 units Insulin Detemir (Levemir Vial) 10 units SQ HS [facility] Last Admin: 04/06/18 21:51 Dose: 10 units Isosorbide Dinitrate (Isordil -) 30 mg PO BIDISORDIL [facility] Metoprolol Succinate (Toprol Xl -) 25 mg PO BID [facility] Last Admin: 04/07/18 09:51 Dose: 25 mg Neomycin/Polymyxin/Hydrocortisone (Cortisporin Otic Solution -) 4 drop AD Q6HPO [facility] Last Admin: 04/07/18 14:01 Dose: Not Given Oxycodone HCl (Roxicodone -) 5 mg PO Q6H PRN PRN Reason: PAIN LEVEL 7 - 10 Last Admin: 04/07/18 10:11 Dose: 5 mg Polyethylene Glycol (Miralax (For Daily Use) -) 17 gm PO DAILY [facility] Last Admin: 04/07/18 15:45 Dose: Not Given Pramipexole Dihydrochloride (Mirapex -) 0.25 mg PO HS [facility] Last Admin: 04/06/18 22:17 Dose: 0.25 mg Prochlorperazine Maleate (Compazine -) 5 mg PO Q4H PRN PRN Reason: NAUSEA AND/OR VOMITING Last Admin: 04/07/18 14:30 Dose: 5 mg - Objective Vital Signs: Vital Signs Temperature 83 F L 04/07/18 14:00 Pulse Rate 83 04/07/18 14:00 Respiratory Rate 20 04/07/18 10:00 Blood Pressure 167/77 04/07/18 14:00 O2 Sat by Pulse Oximetry (%) 96 04/07/18 10:00 Constitutional: Yes: Calm Eyes: Yes: Conjunctiva Clear HENT: Yes: Atraumatic Cardiovascular: Yes: S1, S2 Respiratory: Yes: CTA Bilaterally Gastrointestinal: Yes: Normal Bowel Sounds, Soft Genitourinary: Yes: WNL Musculoskeletal: Yes: WNL Edema: Yes Edema: LLE: Trace, RLE: Trace Neurological: Yes: Oriented Psychiatric: Yes: Oriented Labs: CBC, BMP 04/06/18 06:25 04/07/18 06:56 INR, PTT INR 1.14 (0.82-1.09) 04/03/18 00:10 Problem List - Problems (1) Acute CHF (congestive heart failure) Code(s): I50.9 - HEART FAILURE, UNSPECIFIED (2) CKD (chronic kidney disease) Code(s): N18.9 - CHRONIC KIDNEY DISEASE, UNSPECIFIED Assessment/Plan Current Medications Generic Name Dose Route Start Last Admin Trade Name Lois PRN Reason Stop Dose Admin Acetaminophen 650 mg 04/06/18 16:56 04/07/18 10:11 Tylenol - PO 650 mg Q6H PRN Administration MILD PAIN Albuterol/Ipratropium 1 amp 04/04/18 20:00 04/07/18 12:45 Duoneb - NEB 1 amp RQID [facility] Administration Diphenhydramine HCl 25 mg 04/04/18 14:42 04/05/18 21:39 Benadryl - PO 25 mg Q6H PRN Administration ITCHING Hydralazine HCl 50 mg 04/03/18 10:00 04/07/18 09:51 Apresoline - PO 50 mg BID ALDO Administration Insulin Aspart 1 vial 04/03/18 23:34 04/07/18 12:06 Novolog Vial Sliding Scale - SQ Not Given ACHS [facility] Protocol Insulin Detemir 25 units 04/04/18 07:00 04/07/18 06:30 Levemir Vial SQ 25 units AM ALDO Administration Insulin Detemir 10 units 04/04/18 22:00 04/06/18 21:51 Levemir Vial SQ 10 units HS ALDO Administration Isosorbide Dinitrate 30 mg 04/07/18 18:00 Isordil - PO BIDISORDIL AL[facility] Metoprolol Succinate 25 mg 04/03/18 10:00 04/07/18 09:51 Toprol Xl - PO 25 mg BID ALDO Administration Neomycin/Polymyxin/Hydrocortisone 4 drop 04/04/18 12:00 04/07/18 14:01 Cortisporin Otic Solution - AD Not Given Q6HPO [facility] Oxycodone HCl 5 mg 04/06/18 16:55 04/07/18 10:11 Roxicodone - PO 5 mg Q6H PRN Administration PAIN LEVEL 7 - 10 Polyethylene Glycol 17 gm 04/07/18 14:00 04/07/18 15:45 Miralax (For Daily Use) - PO Not Given DAILY [facility] Pramipexole Dihydrochloride 0.25 mg 04/04/18 22:00 04/06/18 22:17 Mirapex - PO 0.25 mg HS ALDO Administration Prochlorperazine Maleate 5 mg 04/03/18 09:46 04/07/18 14:30 Compazine - PO 5 mg Q4H PRN Administration NAUSEA AND/OR VOMITING Impression 1. CKD 2. anemia 3. CHF 4. HTN 5. DM 6. hyperlipidemia 7. anxiety 8. uterine cancer 9. hx GI bleed 10. COPD Plan - start sodium bicarb PO - will give a dose of PO lasix as pt quickly retains fluids - repeat labs in am - low potassium diet - avoid nsaids - will follow Dr Moore
[2018-04-07] MEDS ORDERED: FUROSEMIDE 40 MG TABLET (FP) PO ONE (16:35)
[2018-04-07] MEDS: SODIUM BICARBONATE 650 MG TABLET PO SCH ×2 (17:50→21:18)
[2018-04-07 20:15] VITALS: BMI 34.0
[2018-04-07] MEDS: PRAMIPEXOLE DIHYDROCHLORIDE 0.25 MG TABLET PO SCH (21:15)
[2018-04-08] MEDS: NEOMYCIN/POLYMYXN/HC OTIC SOLUTION 10 ML BOTTLE AD SCH ×4 (00:50→17:39)
[2018-04-08] MEDS: diphenhydrAMINE HCL 25 MG CAPSULE (FP) PO PRN ×2 (00:50→21:42)
[2018-04-08] MEDS: INSULIN (LEVEMIR) 100 UNITS/ML UNITS SQ SCH ×2 (06:37→22:17)
[2018-04-08] MEDS: SODIUM BICARBONATE 650 MG TABLET PO SCH ×3 (06:37→21:42)
[2018-04-08] MEDS: INSULIN SLIDING SCALE (NOVOLOG) 1 VIAL SQ SCH ×4 (06:38→22:16)
[2018-04-08 06:40] LABS: HEMATOCRIT 24.8 % (32.4-45.2); HEMOGLOBIN 7.8 GM/dL (10.7-15.3); MCH 28.5 pg (25.7-33.7); MCHC 31.6 g/dl (32.0-36.0); MEAN CELL VOLUME 90.2 fl (80-96); MEAN PLT VOLUME 10.9 fl (7.5-11.1); PLATELET COUNT 104 K/MM3 (134-434); RBC 2.75 M/mm3 (3.60-5.2); RDW 16.5 % (11.6-15.6)
[2018-04-08] MEDS: ALBUTEROL SO4 2.5/IPRATROPIUM 0.5 INH SOL 3 ML VIAL.NEB. NEB SCH ×4 (07:36→20:29)
[2018-04-08 07:45] LABS: ANION GAP 9 (8-16); CALCIUM 7.7 mg/dL (8.5-10.1); CHLORIDE 113 mmol/L (98-107); CO2 21 mmol/L (21-32); CREATININE 3.2 mg/dL (0.55-1.02); GLUCOSE,RANDOM 119 mg/dL (74-106); POTASSIUM 5.3 mmol/L (3.5-5.1); SODIUM 143 mmol/L (136-145)
[2018-04-08 07:53] LABS: BLOOD UREA NITROGEN 106 mg/dL (7-18)
--- NOTE | 2018-04-08 07:56 | PN ---
Progress Note, Physician - Current Medication List Current Medications: Active Medications Acetaminophen (Tylenol -) 650 mg PO Q6H PRN PRN Reason: MILD PAIN Last Admin: 04/07/18 10:11 Dose: 650 mg Albuterol/Ipratropium (Duoneb -) 1 amp NEB RQID [facility] Last Admin: 04/08/18 07:36 Dose: 1 amp Diphenhydramine HCl (Benadryl -) 25 mg PO Q6H PRN PRN Reason: ITCHING Last Admin: 04/08/18 00:50 Dose: 25 mg Hydralazine HCl (Apresoline -) 50 mg PO BID [facility] Last Admin: 04/07/18 21:13 Dose: 50 mg Insulin Aspart (Novolog Vial Sliding Scale -) 1 vial SQ [facility]; Protocol Last Admin: 04/08/18 06:38 Dose: Not Given Insulin Detemir (Levemir Vial) 25 units SQ AM [facility] Last Admin: 04/08/18 06:37 Dose: Not Given Insulin Detemir (Levemir Vial) 10 units SQ [facility] Last Admin: 04/07/18 21:19 Dose: Not Given Isosorbide Dinitrate (Isordil -) 30 mg PO BIDISORDIL [facility] Last Admin: 04/07/18 17:50 Dose: 30 mg Metoprolol Succinate (Toprol Xl -) 25 mg PO BID [facility] Last Admin: 04/07/18 21:13 Dose: 25 mg Neomycin/Polymyxin/Hydrocortisone (Cortisporin Otic Solution -) 4 drop AD Q6HPO [facility] Last Admin: 04/08/18 06:37 Dose: Not Given Oxycodone HCl (Roxicodone -) 5 mg PO Q6H PRN PRN Reason: PAIN LEVEL 7 - 10 Last Admin: 04/07/18 10:11 Dose: 5 mg Polyethylene Glycol (Miralax (For Daily Use) -) 17 gm PO DAILY [facility] Last Admin: 04/07/18 15:45 Dose: Not Given Pramipexole Dihydrochloride (Mirapex -) 0.25 mg PO HS [facility] Last Admin: 04/07/18 21:15 Dose: 0.25 mg Prochlorperazine Maleate (Compazine -) 5 mg PO Q4H PRN PRN Reason: NAUSEA AND/OR VOMITING Last Admin: 04/07/18 22:53 Dose: 5 mg Sodium Bicarbonate (Sodium Bicarbonate -) 650 mg PO TID [facility] Last Admin: 04/08/18 06:37 Dose: 650 mg - Objective Vital Signs: Vital Signs Temperature 99.8 F H 04/08/18 06:00 Pulse Rate 82 04/08/18 06:00 Respiratory Rate 20 04/08/18 06:00 Blood Pressure 156/76 04/08/18 06:00 O2 Sat by Pulse Oximetry (%) 100 04/07/18 21:00 Cardiovascular: Yes: S1, S2 Respiratory: Yes: Regular, CTA Bilaterally Gastrointestinal: Yes: Normal Bowel Sounds, Soft. No: Tenderness Labs: CBC, BMP 04/08/18 05:00 04/08/18 05:00 INR, PTT INR 1.14 (0.82-1.09) 04/03/18 00:10 Problem List - Problems (1) CHF (congestive heart failure) Assessment/Plan: -Improved -dc iv lasix--po lasix -monitor renal function -cxr-nad Code(s): I50.9 - HEART FAILURE, UNSPECIFIED (2) CKD (chronic kidney disease) Assessment/Plan: monitor labs Laboratory Tests 04/03/18 04/04/18 00:10 06:00 BUN 82 H 104 H Creatinine 2.9 H 3.3 H Code(s): N18.9 - CHRONIC KIDNEY DISEASE, UNSPECIFIED (3) Leukocytosis Assessment/Plan: -now low -s/p chemo and neulasta -monitor Code(s): D72.829 - ELEVATED WHITE BLOOD CELL COUNT, UNSPECIFIED (4) Acute hyperkalemia Assessment/Plan: -follow on lasix Code(s): E87.5 - HYPERKALEMIA (5) COPD (chronic obstructive pulmonary disease) Assessment/Plan: -nebs -pulm appreciated Code(s): J44.9 - CHRONIC OBSTRUCTIVE PULMONARY DISEASE, UNSPECIFIED (6) Uncontrolled diabetes mellitus Assessment/Plan: -Insulin -bgm -endo appreciated Code(s): E11.65 - TYPE 2 DIABETES MELLITUS WITH HYPERGLYCEMIA (7) Uncontrolled hypertension Assessment/Plan: -Better Vital Signs Period Temp Pulse Resp BP Sys/Padron Pulse Ox Last 24 Hr 97.6 F-98.2 F 70-76 18-20 128-158/49-80 93-94 Code(s): I10 - ESSENTIAL (PRIMARY) HYPERTENSION (8) Leukopenia Assessment/Plan: -pancytopenia -hem follow up Code(s): D72.819 - DECREASED WHITE BLOOD CELL COUNT, UNSPECIFIED (9) Anemia Assessment/Plan: -may need prbc -await rpt Code(s): D64.9 - ANEMIA, UNSPECIFIED Qualifiers: Anemia type: iron deficiency Iron deficiency anemia type: chronic blood loss Qualified Code(s): D50.0 - Iron deficiency anemia secondary to blood loss (chronic)
[2018-04-08 08:40] LABS: HEMATOCRIT 23.7 % (32.4-45.2); HEMOGLOBIN 7.6 GM/dL (10.7-15.3); MCH 28.6 pg (25.7-33.7); MCHC 31.9 g/dl (32.0-36.0); MEAN CELL VOLUME 89.6 fl (80-96); PLATELET COUNT 109 K/MM3 (134-434); RBC 2.64 M/mm3 (3.60-5.2); RDW 16.4 % (11.6-15.6)
[2018-04-08] MEDS: hydrALAZINE HCL 50 MG TABLET (FP) PO SCH (09:10)
[2018-04-08] MEDS: ISOSORBIDE DINITRATE 10 MG TABLET (FP) PO SCH ×2 (09:10→17:39)
[2018-04-08] MEDS: metoPROLOL SUCCINATE 25 MG TAB.SR.24H (FP) PO SCH ×2 (09:11→21:42)
[2018-04-08] MEDS: POLYETHYLENE GLYCOL 3350 119 GM BTL PO SCH (09:11)
--- NOTE | 2018-04-08 10:09 | PN ---
Progress Note, Physician History of Present Illness: pulmonary alert,nad,-cp,-sob - Current Medication List Current Medications: Active Medications Acetaminophen (Tylenol -) 650 mg PO Q6H PRN PRN Reason: MILD PAIN Last Admin: 04/07/18 10:11 Dose: 650 mg Albuterol/Ipratropium (Duoneb -) 1 amp NEB RQID [facility] Last Admin: 04/08/18 07:36 Dose: 1 amp Diphenhydramine HCl (Benadryl -) 25 mg PO Q6H PRN PRN Reason: ITCHING Last Admin: 04/08/18 00:50 Dose: 25 mg Hydralazine HCl (Apresoline -) 50 mg PO BID [facility] Last Admin: 04/08/18 09:10 Dose: 50 mg Insulin Aspart (Novolog Vial Sliding Scale -) 1 vial SQ [facility]; Protocol Last Admin: 04/08/18 06:38 Dose: Not Given Insulin Detemir (Levemir Vial) 25 units SQ AM [facility] Last Admin: 04/08/18 06:37 Dose: Not Given Insulin Detemir (Levemir Vial) [address] [facility] Last Admin: 04/07/18 21:19 Dose: Not Given Isosorbide Dinitrate (Isordil -) 30 mg PO BIDISORDIL [facility] Last Admin: 04/08/18 09:10 Dose: 30 mg Metoprolol Succinate (Toprol Xl -) 25 mg PO BID [facility] Last Admin: 04/08/18 09:11 Dose: 25 mg Neomycin/Polymyxin/Hydrocortisone (Cortisporin Otic Solution -) 4 drop AD Q6HPO [facility] Last Admin: 04/08/18 06:37 Dose: Not Given Oxycodone HCl (Roxicodone -) 5 mg PO Q6H PRN PRN Reason: PAIN LEVEL 7 - 10 Last Admin: 04/07/18 10:11 Dose: 5 mg Polyethylene Glycol (Miralax (For Daily Use) -) 17 gm PO DAILY [facility] Last Admin: 04/08/18 09:11 Dose: Not Given Pramipexole Dihydrochloride (Mirapex -) 0.25 mg PO HS [facility] Last Admin: 04/07/18 21:15 Dose: 0.25 mg Prochlorperazine Maleate (Compazine -) 5 mg PO Q4H PRN PRN Reason: NAUSEA AND/OR VOMITING Last Admin: 04/07/18 22:53 Dose: 5 mg Sodium Bicarbonate (Sodium Bicarbonate -) 650 mg PO TID [facility] Last Admin: 04/08/18 06:37 Dose: 650 mg - Objective Vital Signs: Vital Signs Temperature 99.5 F 04/08/18 09:07 Pulse Rate 83 04/08/18 09:07 Respiratory Rate 18 04/08/18 09:07 Blood Pressure 142/70 04/08/18 09:07 O2 Sat by Pulse Oximetry (%) 100 04/07/18 21:00 Constitutional: Yes: Well Nourished, Calm Eyes: Yes: WNL HENT: Yes: WNL Neck: Yes: WNL Cardiovascular: Yes: Regular Rate and Rhythm, S1, S2 Respiratory: Yes: CTA Bilaterally Gastrointestinal: Yes: Normal Bowel Sounds, Soft Extremities: Yes: WNL Edema: Yes Labs: CBC, BMP 04/08/18 08:12 04/08/18 05:00 INR, PTT INR 1.14 (0.82-1.09) 04/03/18 00:10 Problem List - Problems (1) Acute CHF (congestive heart failure) Code(s): I50.9 - HEART FAILURE, UNSPECIFIED (2) Breast cancer Code(s): C50.919 - MALIGNANT NEOPLASM OF UNSP SITE OF UNSPECIFIED FEMALE BREAST (3) CKD (chronic kidney disease) Code(s): N18.9 - CHRONIC KIDNEY DISEASE, UNSPECIFIED (4) Anemia Code(s): D64.9 - ANEMIA, UNSPECIFIED Qualifiers: Anemia type: iron deficiency Iron deficiency anemia type: chronic blood loss Qualified Code(s): D50.0 - Iron deficiency anemia secondary to blood loss (chronic) (5) CAD (coronary artery disease) Code(s): I25.10 - ATHSCL HEART DISEASE OF [place] CORONARY ARTERY W/O ANG PCTRS Qualifiers: Coronary Disease-Associated Artery/Lesion type: [place] coronary artery Associated angina: with other forms of angina pectoris (6) CHF (congestive heart failure) Code(s): I50.9 - HEART FAILURE, UNSPECIFIED (7) COPD (chronic obstructive pulmonary disease) Code(s): J44.9 - CHRONIC OBSTRUCTIVE PULMONARY DISEASE, UNSPECIFIED (8) Diabetes mellitus Code(s): E11.9 - TYPE 2 DIABETES MELLITUS WITHOUT COMPLICATIONS (9) HTN (hypertension) Code(s): I10 - ESSENTIAL (PRIMARY) HYPERTENSION (10) PARVEZ on CPAP Code(s): G47.33 - OBSTRUCTIVE SLEEP APNEA (ADULT) (PEDIATRIC) (11) SOB (shortness of breath) Code(s): R06.02 - SHORTNESS OF BREATH Assessment/Plan Acute systolic CHF improved Chronic ischemic heart disease: Essential hypertension: Chronic obstructive pulmonary disease Obstructive sleep apnea Hypercholesterolemia Breast ca Acute on chronic kidney disease Pancytopenia continue 02 inhaled bronchodilators diuretics,beta-blockers,bp control,glycemic control monitor lytes,renal function consider Neulasta monitor cbc,wbc normal transfusion threshold DR HARO
[2018-04-08 10:16] LABS: PLATELET ESTIMATE DECREASED
--- NOTE | 2018-04-08 11:24 | PN ---
Progress Note (short form) - Note Progress Note: CC: LE edema S: No dizziness, cp, palps, sob. Current Medications Generic Name Dose Route Start Last Admin Trade Name Freq PRN Reason Stop Dose Admin Acetaminophen 650 mg 04/06/18 16:56 04/07/18 10:11 Tylenol - PO 650 mg Q6H PRN Administration MILD PAIN Albuterol/Ipratropium 1 amp 04/04/18 20:00 04/08/18 07:36 Duoneb - NEB 1 amp RQID [facility] Administration Diphenhydramine HCl 25 mg 04/04/18 14:42 04/08/18 00:50 Benadryl - PO 25 mg Q6H PRN Administration ITCHING Furosemide 40 mg 04/08/18 11:30 Lasix Injection - IVPUSH 04/08/18 11:31 ONCE ONE Hydralazine HCl 50 mg 04/03/18 10:00 04/08/18 09:10 Apresoline - PO 50 mg BID [facility] Administration Insulin Aspart 1 vial 04/03/18 23:34 04/08/18 06:38 Novolog Vial Sliding Scale - SQ Not Given ACHS [facility] Protocol Insulin Detemir 25 units 04/04/18 07:00 04/08/18 06:37 Levemir Vial SQ Not Given AM [facility] Insulin Detemir 10 units 04/04/18 22:00 04/07/18 21:19 Levemir Vial SQ Not Given HS [facility] Isosorbide Dinitrate 30 mg 04/07/18 18:00 04/08/18 09:10 Isordil - PO 30 mg BIDISORDIL [facility] Administration Metoprolol Succinate 25 mg 04/03/18 10:00 04/08/18 09:11 Toprol Xl - PO 25 mg BID [facility] Administration Neomycin/Polymyxin/Hydrocortisone 4 drop 04/04/18 12:00 04/08/18 06:37 Cortisporin Otic Solution - AD Not Given Q6HPO [facility] Oxycodone HCl 5 mg 04/06/18 16:55 04/07/18 10:11 Roxicodone - PO 5 mg Q6H PRN Administration PAIN LEVEL 7 - 10 Polyethylene Glycol 17 gm 04/07/18 14:00 04/08/18 09:11 Miralax (For Daily Use) - PO Not Given DAILY [facility] Pramipexole Dihydrochloride 0.25 mg 04/04/18 22:00 04/07/18 21:15 Mirapex - PO 0.25 mg HS [facility] Administration Prochlorperazine Maleate 5 mg 04/03/18 09:46 04/07/18 22:53 Compazine - PO 5 mg Q4H PRN Administration NAUSEA AND/OR VOMITING Sodium Bicarbonate 650 mg 04/07/18 16:45 04/08/18 06:37 Sodium Bicarbonate - PO 650 mg TID [facility] Administration Sodium Polystyrene Sulfonate 30 gm 04/08/18 11:30 Kayexalate - PO 04/08/18 11:31 ONCE ONE Vital Signs Period Temp Pulse Resp BP Sys/Padron Pulse Ox Last 24 Hr 83 F-99.8 F 82-88 18-20 142-167/66-82 100 NAD, no jvd RRR nl s1, s2 no m/r/g ctab, nl eff aaox3 no le e/c/c abd nt nd pos bs no jaundice diaphoresis CBC, BMP 04/08/18 08:12 04/08/18 05:00 tele: sr, ecg: sr, nl pr, qtc 535, no ischemic changes Echo 08/03: mod LVE, mod decr EF (global). nl RV. mild-mod MR, mod TR. RVSP 45. LHC 06/29: nl EDP; EF 40% (global); 50-60% OM1 (normal FFR); mild dz others MIBI 06/29 (pers): no STs; moder, partly rev defect AW c/w ischemia; mild LVE, mild-mod global LV hypo (40% EF); MILD TID MIBI 08/27 (pers): no ST change; TDS perfusion b/c of GI artifact and gating artifact; mild LV dilation and mild decr EFvisually (no TID) CXR: clear lungs ASSESSMENT/PLAN 62 yo smoker with h/o systolic cardiomyopathy, non-obstructive cad, HTN, HL, pHTN, PAD, mod PARVEZ on cpap, CKD (cr 1.8 - 2.2), DM, h/o GIB s/p cauterization of avm's, breast cancer on chemo here with high bp, legs swollen. acute systolic CHF: -nonisch CMP (prior cath for this w/u). LVEF MODERATELY REDUCED -has been on lasix 40 bid at home, doing well, but then got ivs yesterday for chemo and after noticed le edema and sob -feeling better after iv lasix, still with some le edema, cont iv lasix for now -cont METOPR 25 BID, HYDRALAZINE AND NITRATES -NO EVELINA/ARB, DUE TO RECURRENT SEVERE HYPERKALEMIA (DUE TO PT REPEATED NONCOMPLIANCE WITH REGULAR KAYEXALATE DOSING) 04/05: Improving clincially. ? overdiuresis. transitioned to PO lasix and also given low rate of IVF (1/2 NS). - 04/06-04/07 cr slightly better with downtitration of diuretic regimen and gentle IVF. con't to hold lasix. no signs of volume overload. -04/08: vol stable, cr improving. bun still elevated. resume lasix 40 po bid when renal fcn stabilizes Ckd: -as above, renal following. Chronic ischemic heart disease: -NONOBSTR OM (INCL FFR NEGATIVE), NEVER HAD ANGINA. -no sigs acs here -cont home meds Essential hypertension: -continue current meds Chronic obstructive pulmonary disease -STABLE ON BB LONG TIME Obstructive sleep apnea -USES CPAP AT HOME Pure hypercholesterolemia -correction has been off statin here. given slightly elevated ck on admit and current myalgias, arthralgias, ok to hold. Can resume as outpatient at discretion of her outpatient md's. breast ca - [facility] following. On treatment with taxotere/cytoxan, cycle 1 D1. On Venofer for iron deficinecy , given on 04/02 --bone pains due to neulasta. - + anemia and thrombocytopenia
[2018-04-08] MEDS ORDERED: INSULIN (NOVOLOG) ASPART 100 UNITS/ML 10ML VIAL ONE (11:27)
[2018-04-08] MEDS ORDERED: SODIUM POLYSTYRENE SULFONATE 15 GM/60 ML BOTTLE PO ONE (11:30)
[2018-04-08] MEDS ORDERED: FUROSEMIDE 40 MG/4 ML INJECTABLE VIAL IVPUSH ONE ×2 (11:30→17:45)
[2018-04-08] MEDS: ACETAMINOPHEN 325 MG TABLET (FP) PO PRN (11:44)
[2018-04-08] MEDS: oxyCODONE HCL 5 MG TABLET PO PRN ×2 (11:44→22:43)
--- NOTE | 2018-04-08 12:09 | CONSULT ---
Consult - text type - Consultation Consultation Note: Podiatry Consultation: 62 year old DM F well known to me from wound healing center presented for SOB, high potassium. Podiatry consultation called for R great toe non-healing diabetic ulcer. Patient denies F/V/N/C. Afebrile, VSS. PMHx: Triple Negative Breast Ca (on Taxotere, Cytoxan), CAD, CHF, COPD, Emphysema, HTN, HLD, CKD, PARVEZ Meds: noted ALL: NKMA JOSE: R foot: pedal pulses weakly palpable, TG wnl, CFT Brisk to all toes. There is a R plantar hallux diabetic ulcer strong granular base, hyperkeratotic borders, no probing to bone, no purulence, no fluctuance, no ascending cellulitis, no active SOIs Imp: 62 year old DM F with R great toe diabetic ulcer 1. IV abx 2. Local wound care with bactroban to R great toe daily 3. Would benefit from workup with PVRs, xray right foot. Started workup in wound healing center outpatient prior to admission. 4. No need for sx intervention at this time. Thank you for the courtesy of this consultationksenia Dunne DPM
--- NOTE | 2018-04-08 14:58 | PN ---
Progress Note (short form) - Note Progress Note: pt seen and examined Feels better than yesterday No fevers Temp Pulse Resp BP Pulse Ox 98.3 F 77 20 157/77 94 L 04/07/18 05:42 04/07/18 05:42 04/07/18 05:42 04/07/18 05:42 04/06/18 20:21 CBC, BMP 04/06/18 06:25 04/07/18 06:56 Current Medications Generic Name Dose Route Start Last Admin Trade Name Freq PRN Reason Stop Dose Admin Acetaminophen 650 mg 04/06/18 16:56 04/07/18 10:11 Tylenol - PO 650 mg Q6H PRN Administration MILD PAIN Albuterol/Ipratropium 1 amp 04/04/18 20:00 04/07/18 12:45 Duoneb - NEB 1 amp RQID [facility] Administration Diphenhydramine HCl 25 mg 04/04/18 14:42 04/05/18 21:39 Benadryl - PO 25 mg Q6H PRN Administration ITCHING Hydralazine HCl 50 mg 04/03/18 10:00 04/07/18 09:51 Apresoline - PO 50 mg BID [facility] Administration Insulin Aspart 1 vial 04/03/18 23:34 04/07/18 12:06 Novolog Vial Sliding Scale - SQ Not Given ACHS [facility] Protocol Insulin Detemir 25 units 04/04/18 07:00 04/07/18 06:30 Levemir Vial SQ 25 units AM [facility] Administration Insulin Detemir 10 units 04/04/18 22:00 04/06/18 21:51 Levemir Vial SQ 10 units HS [facility] Administration Isosorbide Dinitrate 30 mg 04/07/18 18:00 Isordil - PO BIDISORDIL [facility] Metoprolol Succinate 25 mg 04/03/18 10:00 04/07/18 09:51 Toprol Xl - PO 25 mg BID [facility] Administration Neomycin/Polymyxin/Hydrocortisone 4 drop 04/04/18 12:00 04/07/18 06:31 Cortisporin Otic Solution - AD 4 drop Q6HPO [facility] Administration Oxycodone HCl 5 mg 04/06/18 16:55 04/07/18 10:11 Roxicodone - PO 5 mg Q6H PRN Administration PAIN LEVEL 7 - 10 Polyethylene Glycol 17 gm 04/07/18 14:00 Miralax (For Daily Use) - PO DAILY [facility] Pramipexole Dihydrochloride 0.25 mg 04/04/18 22:00 04/06/18 22:17 Mirapex - PO 0.25 mg HS [facility] Administration Prochlorperazine Maleate 5 mg 04/03/18 09:46 04/07/18 10:13 Compazine - PO 5 mg Q4H PRN Administration NAUSEA AND/OR VOMITING AFVSs Cor: RSR, No murmurs, No gallops Lungs: Clear to P&A Abd: Soft, Normal bowel sounds, No organomegaly Ext:No significant edema 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 Counts expect to improve around D11 -12( today is D7). No role for neupogen for now(pt received Neulasta) Multiple co-morbids including CHF, COPD ,CKD Supportive transfusion Monitor Vitals. Supportive care if febrile, will treat as neutropenic sepsis.
[2018-04-08] MEDS ORDERED: PT OWN MED DRAWER 7, Y5N ONE ×3 (14:59→18:03)
--- NOTE | 2018-04-08 15:04 | PN ---
Progress Note, Physician History of Present Illness: Pt seen and examined at bedside. She is awake and alert. She denies shortness of breath but does complains of edema. - Current Medication List Current Medications: Active Medications Acetaminophen (Tylenol -) 650 mg PO Q6H PRN PRN Reason: MILD PAIN Last Admin: 04/08/18 11:44 Dose: 650 mg Albuterol/Ipratropium (Duoneb -) 1 amp NEB RQID [facility] Last Admin: 04/08/18 11:31 Dose: 1 amp Diphenhydramine HCl (Benadryl -) 25 mg PO Q6H PRN PRN Reason: ITCHING Last Admin: 04/08/18 00:50 Dose: 25 mg Hydralazine HCl (Apresoline -) 50 mg PO BID [facility] Last Admin: 04/08/18 09:10 Dose: 50 mg Insulin Aspart (Novolog Vial Sliding Scale -) [address] [facility]; Protocol Last Admin: 04/08/18 11:27 Dose: 8 units Insulin Detemir (Levemir Vial) 25 units SQ AM [facility] Last Admin: 04/08/18 06:37 Dose: Not Given Insulin Detemir (Levemir Vial) 10 units SQ HS [facility] Last Admin: 04/07/18 21:19 Dose: Not Given Isosorbide Dinitrate (Isordil -) 30 mg PO BIDISORDIL [facility] Last Admin: 04/08/18 09:10 Dose: 30 mg Metoprolol Succinate (Toprol Xl -) 25 mg PO BID [facility] Last Admin: 04/08/18 09:11 Dose: 25 mg Mupirocin (Bactroban 2% Ointment -) 1 applic TP DAILY [facility] Neomycin/Polymyxin/Hydrocortisone (Cortisporin Otic Solution -) 4 drop AD Q6HPO [facility] Last Admin: 04/08/18 06:37 Dose: Not Given Oxycodone HCl (Roxicodone -) 5 mg PO Q6H PRN PRN Reason: PAIN LEVEL 7 - 10 Last Admin: 04/08/18 11:44 Dose: 5 mg Polyethylene Glycol (Miralax (For Daily Use) -) 17 gm PO DAILY [facility] Last Admin: 04/08/18 09:11 Dose: Not Given Pramipexole Dihydrochloride (Mirapex -) 0.25 mg PO HS [facility] Last Admin: 04/07/18 21:15 Dose: 0.25 mg Prochlorperazine Maleate (Compazine -) 5 mg PO Q4H PRN PRN Reason: NAUSEA AND/OR VOMITING Last Admin: 04/07/18 22:53 Dose: 5 mg Sodium Bicarbonate (Sodium Bicarbonate -) 650 mg PO TID [facility] Last Admin: 04/08/18 06:37 Dose: 650 mg - Objective Vital Signs: Vital Signs Temperature 99.5 F 04/08/18 09:07 Pulse Rate 83 04/08/18 09:07 Respiratory Rate 18 04/08/18 09:07 Blood Pressure 142/70 04/08/18 09:07 O2 Sat by Pulse Oximetry (%) 93 L 04/08/18 09:00 Constitutional: Yes: Calm Eyes: Yes: Conjunctiva Clear HENT: Yes: Atraumatic Neck: Yes: Supple Cardiovascular: Yes: S1, S2 Respiratory: Yes: CTA Bilaterally Gastrointestinal: Yes: Soft, Abdomen, Obese Genitourinary: Yes: WNL Musculoskeletal: Yes: WNL Edema: Yes Edema: LLE: Trace, RLE: Trace Neurological: Yes: Oriented Psychiatric: Yes: Oriented Labs: CBC, BMP 04/08/18 08:12 04/08/18 05:00 INR, PTT INR 1.14 (0.82-1.09) 04/03/18 00:10 Problem List - Problems (1) Acute CHF (congestive heart failure) Code(s): I50.9 - HEART FAILURE, UNSPECIFIED (2) CKD (chronic kidney disease) Code(s): N18.9 - CHRONIC KIDNEY DISEASE, UNSPECIFIED Assessment/Plan Current Medications Generic Name Dose Route Start Last Admin Trade Name Freq PRN Reason Stop Dose Admin Acetaminophen 650 mg 04/06/18 16:56 04/08/18 11:44 Tylenol - PO 650 mg Q6H PRN Administration MILD PAIN Albuterol/Ipratropium 1 amp 04/04/18 20:00 04/08/18 11:31 Duoneb - NEB 1 amp RQID [facility] Administration Diphenhydramine HCl 25 mg 04/04/18 14:42 04/08/18 00:50 Benadryl - PO 25 mg Q6H PRN Administration ITCHING Hydralazine HCl 50 mg 04/03/18 10:00 04/08/18 09:10 Apresoline - PO 50 mg BID [facility] Administration Insulin Aspart 1 vial 04/03/18 23:34 04/08/18 11:27 Novolog Vial Sliding Scale - SQ 8 units ACHS [facility] Administration Protocol Insulin Detemir 25 units 04/04/18 07:00 04/08/18 06:37 Levemir Vial SQ Not Given AM [facility] Insulin Detemir 10 units 04/04/18 22:00 04/07/18 21:19 Levemir Vial SQ Not Given HS [facility] Isosorbide Dinitrate 30 mg 04/07/18 18:00 04/08/18 09:10 Isordil - PO 30 mg BIDISORDIL [facility] Administration Metoprolol Succinate 25 mg 04/03/18 10:00 04/08/18 09:11 Toprol Xl - PO 25 mg BID [facility] Administration Mupirocin 1 applic 04/09/18 10:00 Bactroban 2% Ointment - TP DAILY [facility] Neomycin/Polymyxin/Hydrocortisone 4 drop 04/04/18 12:00 04/08/18 06:37 Cortisporin Otic Solution - AD Not Given Q6HPO [facility] Oxycodone HCl 5 mg 04/06/18 16:55 04/08/18 11:44 Roxicodone - PO 5 mg Q6H PRN Administration PAIN LEVEL 7 - 10 Polyethylene Glycol 17 gm 04/07/18 14:00 04/08/18 09:11 Miralax (For Daily Use) - PO Not Given DAILY [facility] Pramipexole Dihydrochloride 0.25 mg 04/04/18 22:00 04/07/18 21:15 Mirapex - PO 0.25 mg HS [facility] Administration Prochlorperazine Maleate 5 mg 04/03/18 09:46 04/07/18 22:53 Compazine - PO 5 mg Q4H PRN Administration NAUSEA AND/OR VOMITING Sodium Bicarbonate 650 mg 04/07/18 16:45 04/08/18 06:37 Sodium Bicarbonate - PO 650 mg TID [facility] Administration Impression 1. CKD 2. anemia 3. CHF 4. HTN 5. DM 6. hyperlipidemia 7. anxiety 8. uterine cancer 9. hx GI bleed 10. COPD 11. neutropenia 12. hyperkalemia Plan - stop hydralazine - will give a dose of lasix - renal function improving - potassium is improving - hematology follow up - low potassium diet - avoid nsaids - will follow Dr Moore
[2018-04-08] MEDS: PRAMIPEXOLE DIHYDROCHLORIDE 0.25 MG TABLET PO SCH (21:42)
[2018-04-08] MEDS: HEPARIN NA (PORCINE) 5,000 UNITS/ML 1ML VIAL SQ SCH (21:44)
[2018-04-09] MEDS: ACETAMINOPHEN 325 MG TABLET (FP) PO PRN (00:15)
[2018-04-09] MEDS: NEOMYCIN/POLYMYXN/HC OTIC SOLUTION 10 ML BOTTLE AD SCH ×3 (00:16→12:19)
[2018-04-09] MEDS: HEPARIN NA (PORCINE) 5,000 UNITS/ML 1ML VIAL SQ SCH ×2 (06:03→14:19)
[2018-04-09] MEDS: SODIUM BICARBONATE 650 MG TABLET PO SCH ×2 (06:03→14:19)
[2018-04-09] MEDS: INSULIN SLIDING SCALE (NOVOLOG) 1 VIAL SQ SCH (06:04)
[2018-04-09] MEDS: INSULIN (LEVEMIR) 100 UNITS/ML UNITS SQ SCH (06:04)
[2018-04-09 06:37] LABS: HEMATOCRIT 27.4 % (32.4-45.2); HEMOGLOBIN 8.9 GM/dL (10.7-15.3); MCH 28.9 pg (25.7-33.7); MCHC 32.6 g/dl (32.0-36.0); MEAN CELL VOLUME 88.4 fl (80-96); MEAN PLT VOLUME 10.4 fl (7.5-11.1); PLATELET COUNT 102 K/MM3 (134-434); RDW 16.7 % (11.6-15.6)
[2018-04-09 07:02] LABS: CALCIUM 7.5 mg/dL (8.5-10.1); CHLORIDE 114 mmol/L (98-107); POTASSIUM 5.1 mmol/L (3.5-5.1); SODIUM 141 mmol/L (136-145)
[2018-04-09 07:08] LABS: ALBUMIN 2.9 g/dl (3.4-5.0); ALK PHOS 153 U/L (45-117); ANION GAP 5 (8-16); BILIRUBIN,TOTAL 0.9 mg/dL (0.2-1.0); BLOOD UREA NITROGEN 97 mg/dL (7-18); CO2 22 mmol/L (21-32); CREATININE 3.2 mg/dL (0.55-1.02); GLUCOSE,RANDOM 69 mg/dL (74-106); SGOT/AST 23 U/L (15-37); SGPT/ALT 24 U/L (12-78); TOT PROT 6.1 g/dl (6.4-8.2)
[2018-04-09] MEDS: ALBUTEROL SO4 2.5/IPRATROPIUM 0.5 INH SOL 3 ML VIAL.NEB. NEB SCH ×2 (08:53→12:15)
[2018-04-09] MEDS ORDERED: MUPIROCIN 2% TOPICAL OINTMENT 22 GM TUBE TP SCH (10:00)
[2018-04-09] MEDS: ISOSORBIDE DINITRATE 10 MG TABLET (FP) PO SCH (10:45)
[2018-04-09] MEDS: metoPROLOL SUCCINATE 25 MG TAB.SR.24H (FP) PO SCH (10:45)
[2018-04-09] MEDS: POLYETHYLENE GLYCOL 3350 119 GM BTL PO SCH (10:46)
--- NOTE | 2018-04-09 11:29 | PN ---
Progress Note (short form) - Note Progress Note: CC: LE edema S: No dizziness, cp, palps, sob. feels well, asking to go home Current Medications Generic Name Dose Route Start Last Admin Trade Name Freq PRN Reason Stop Dose Admin Acetaminophen 650 mg 04/06/18 16:56 04/09/18 00:15 Tylenol - PO 650 mg Q6H PRN Administration MILD PAIN Albuterol/Ipratropium 1 amp 04/04/18 20:00 04/09/18 08:53 Duoneb - NEB 1 amp RQID [facility] Administration Diphenhydramine HCl 25 mg 04/04/18 14:42 04/08/18 21:42 Benadryl - PO 25 mg Q6H PRN Administration ITCHING Heparin Sodium (Porcine) 5,000 unit 04/08/18 22:00 04/09/18 06:03 Heparin - SQ 5,000 unit TID [facility] Administration Insulin Aspart 1 vial 04/03/18 23:34 04/09/18 06:04 Novolog Vial Sliding Scale - SQ Not Given ACHS [facility] Protocol Insulin Detemir 25 units 04/04/18 07:00 04/09/18 06:04 Levemir Vial SQ Not Given AM [facility] Insulin Detemir 10 units 04/04/18 22:00 04/08/18 22:17 Levemir Vial SQ 10 units HS [facility] Administration Isosorbide Dinitrate 30 mg 04/07/18 18:00 04/09/18 10:45 Isordil - PO 30 mg BIDISORDIL [facility] Administration Metoprolol Succinate 25 mg 04/03/18 10:00 04/09/18 10:45 Toprol Xl - PO 25 mg BID [facility] Administration Mupirocin 1 applic 04/09/18 10:00 04/09/18 10:46 Bactroban 2% Ointment - TP Not Given DAILY [facility] Neomycin/Polymyxin/Hydrocortisone 4 drop 04/04/18 12:00 04/09/18 06:03 Cortisporin Otic Solution - AD 4 drop Q6HPO [facility] Administration Oxycodone HCl 5 mg 04/06/18 16:55 04/08/18 22:43 Roxicodone - PO 5 mg Q6H PRN Administration PAIN LEVEL 7 - 10 Polyethylene Glycol 17 gm 04/07/18 14:00 05/24/18 10:46 Miralax (For Daily Use) - PO Not Given DAILY [facility] Pramipexole Dihydrochloride 0.25 mg 04/04/18 22:00 04/08/18 21:42 Mirapex - PO 0.25 mg HS [facility] Administration Sodium Bicarbonate 650 mg 04/07/18 16:45 04/09/18 06:03 Sodium Bicarbonate - PO 650 mg TID [facility] Administration Vital Signs Period Temp Pulse Resp BP Sys/Padron Pulse Ox Last 24 Hr 98.4 F-99.3 F 67-84 20-20 131-168/67-87 94 NAD, no jvd RRR nl s1, s2 no m/r/g ctab, nl eff aaox3 no le e/c/c abd nt nd pos bs no jaundice diaphoresis CBC, BMP 04/09/18 06:10 04/09/18 06:10 tele: sr ecg: sr, nl pr, qtc 535, no ischemic changes Echo 08/03: mod LVE, mod decr EF (global). nl RV. mild-mod MR, mod TR. RVSP 45. LHC 06/29: nl EDP; EF 40% (global); 50-60% OM1 (normal FFR); mild dz others MIBI 06/29 (pers): no STs; moder, partly rev defect AW c/w ischemia; mild LVE, mild-mod global LV hypo (40% EF); MILD TID MIBI 08/27 (pers): no ST change; TDS perfusion b/c of GI artifact and gating artifact; mild LV dilation and mild decr EFvisually (no TID) CXR: clear lungs ASSESSMENT/PLAN 62 yo smoker with h/o systolic cardiomyopathy, non-obstructive cad, HTN, HL, pHTN, PAD, mod PARVEZ on cpap, CKD (cr 1.8 - 2.2), DM, h/o GIB s/p cauterization of avm's, breast cancer on chemo here with high bp, legs swollen. acute systolic CHF: -nonisch CMP (prior cath for this w/u). LVEF MODERATELY REDUCED -has been on lasix 40 bid at home, doing well, but then got ivs yesterday for chemo and after noticed le edema and sob -feeling better after iv lasix, still with some le edema, cont iv lasix for now -cont METOPR 25 BID, HYDRALAZINE AND NITRATES -NO EVELINA/ARB, DUE TO RECURRENT SEVERE HYPERKALEMIA (DUE TO PT REPEATED NONCOMPLIANCE WITH REGULAR KAYEXALATE DOSING) 04/05: Improving clincially. ? overdiuresis. transitioned to PO lasix and also given low rate of IVF (1/2 NS). - 04/06-04/07 cr slightly better with downtitration of diuretic regimen and gentle IVF. con't to hold lasix. no signs of volume overload. -04/08: vol stable, cr improving. bun still elevated. resume lasix 40 po bid when renal fcn stabilizes -04/09: vol stable, resume po lasix 40 bid upon dc Ckd: -as above, renal following. Chronic ischemic heart disease: -NONOBSTR OM (INCL FFR NEGATIVE), NEVER HAD ANGINA. -no sigs acs here -cont home meds Essential hypertension: -continue current meds Chronic obstructive pulmonary disease -STABLE ON BB LONG TIME Obstructive sleep apnea -USES CPAP AT HOME Pure hypercholesterolemia -correction has been off statin here. given slightly elevated ck on admit and current myalgias, arthralgias, ok to hold. Can resume as outpatient at discretion of her outpatient md's. breast ca - honc following. On treatment with taxotere/cytoxan, cycle 1 D1. On Venofer for iron deficinecy , given on 04/02 --bone pains due to neulasta. - + anemia and thrombocytopenia cardiac kern stable, dc tele
--- NOTE | 2018-04-09 12:21 | PN ---
Progress Note (short form) - Note Progress Note: PULMONARY Denies shortness of breath or chest pain. Wants to go home. Last Vital Signs Temp Pulse Resp BP Pulse Ox 98.4 F 67 20 168/87 94 L 04/09/18 01:00 04/09/18 01:00 04/09/18 01:00 04/09/18 01:00 04/08/18 20:40 Gen: NAD at rest Heart: RRR Lung: decreased breath sounds at the bases Abd: soft, nontender Ext: no edema CBC, BMP 04/09/18 06:10 04/09/18 06:10 Active Medications Acetaminophen (Tylenol -) 650 mg PO Q6H PRN PRN Reason: MILD PAIN Last Admin: 04/09/18 00:15 Dose: 650 mg Albuterol/Ipratropium (Duoneb -) 1 amp NEB RQID [facility] Last Admin: 04/09/18 08:53 Dose: 1 amp Diphenhydramine HCl (Benadryl -) 25 mg PO Q6H PRN PRN Reason: ITCHING Last Admin: 04/08/18 21:42 Dose: 25 mg Heparin Sodium (Porcine) (Heparin -) 5,000 unit SQ TID [facility] Last Admin: 04/09/18 06:03 Dose: 5,000 unit Insulin Aspart (Novolog Vial Sliding Scale -) 1 vial SQ [facility]; Protocol Last Admin: 04/09/18 06:04 Dose: Not Given Insulin Detemir (Levemir Vial) 25 units SQ AM [facility] Last Admin: 04/09/18 06:04 Dose: Not Given Insulin Detemir (Levemir Vial) 10 units SQ HS [facility] Last Admin: 04/08/18 22:17 Dose: 10 units Isosorbide Dinitrate (Isordil -) 30 mg PO BIDISORDIL [facility] Last Admin: 04/09/18 10:45 Dose: 30 mg Metoprolol Succinate (Toprol Xl -) 25 mg PO BID [facility] Last Admin: 04/09/18 10:45 Dose: 25 mg Mupirocin (Bactroban 2% Ointment -) 1 applic TP DAILY [facility] Last Admin: 04/09/18 10:46 Dose: Not Given Neomycin/Polymyxin/Hydrocortisone (Cortisporin Otic Solution -) 4 drop AD Q6HPO [facility] Last Admin: 04/09/18 06:03 Dose: 4 drop Oxycodone HCl (Roxicodone -) 5 mg PO Q6H PRN PRN Reason: PAIN LEVEL 7 - 10 Last Admin: 04/08/18 22:43 Dose: 5 mg Polyethylene Glycol (Miralax (For Daily Use) -) 17 gm PO DAILY [facility] Last Admin: 04/09/18 10:46 Dose: Not Given Pramipexole Dihydrochloride (Mirapex -) 0.25 mg PO HS [facility] Last Admin: 04/08/18 21:42 Dose: 0.25 mg Sodium Bicarbonate (Sodium Bicarbonate -) 650 mg PO TID [facility] Last Admin: 04/09/18 06:03 Dose: 650 mg A/P Acute Systolic Heart Failure improved Acute on Chronic Renal Failure CAD COPD PARVEZ HTN Hypercholesterolemia - continue lasix - beta bethel - bicarb - monitor urine output, creatinine - CPAP at night - DVT prophylaxis
--- NOTE | 2018-04-09 13:19 | PN ---
Progress Note, Physician History of Present Illness: Pt seen and examined at bedside. She is awake and alert. She denies shortness of breath. She says she feels better today. - Current Medication List Current Medications: Active Medications Acetaminophen (Tylenol -) 650 mg PO Q6H PRN PRN Reason: MILD PAIN Last Admin: 04/09/18 00:15 Dose: 650 mg Albuterol/Ipratropium (Duoneb -) 1 amp NEB RQID [facility] Last Admin: 04/09/18 08:53 Dose: 1 amp Diphenhydramine HCl (Benadryl -) 25 mg PO Q6H PRN PRN Reason: ITCHING Last Admin: 04/08/18 21:42 Dose: 25 mg Heparin Sodium (Porcine) (Heparin -) 5,000 unit SQ TID [facility] Last Admin: 04/09/18 06:03 Dose: 5,000 unit Insulin Aspart (Novolog Vial Sliding Scale -) 1 vial SQ [facility]; Protocol Last Admin: 04/09/18 06:04 Dose: Not Given Insulin Detemir (Levemir Vial) 25 units SQ AM [facility] Last Admin: 04/09/18 06:04 Dose: Not Given Insulin Detemir (Levemir Vial) 10 units SQ HS [facility] Last Admin: 04/08/18 22:17 Dose: 10 units Isosorbide Dinitrate (Isordil -) 30 mg PO BIDISORDIL [facility] Last Admin: 04/09/18 10:45 Dose: 30 mg Metoprolol Succinate (Toprol Xl -) 25 mg PO BID [facility] Last Admin: 04/09/18 10:45 Dose: 25 mg Mupirocin (Bactroban 2% Ointment -) 1 applic TP DAILY [facility] Last Admin: 04/09/18 10:46 Dose: Not Given Neomycin/Polymyxin/Hydrocortisone (Cortisporin Otic Solution -) 4 drop AD Q6HPO [facility] Last Admin: 04/09/18 06:03 Dose: 4 drop Oxycodone HCl (Roxicodone -) 5 mg PO Q6H PRN PRN Reason: PAIN LEVEL 7 - 10 Last Admin: 04/08/18 22:43 Dose: 5 mg Polyethylene Glycol (Miralax (For Daily Use) -) 17 gm PO DAILY [facility] Last Admin: 04/09/18 10:46 Dose: Not Given Pramipexole Dihydrochloride (Mirapex -) 0.25 mg PO HS [facility] Last Admin: 04/08/18 21:42 Dose: 0.25 mg Sodium Bicarbonate (Sodium Bicarbonate -) 650 mg PO TID [facility] Last Admin: 04/09/18 06:03 Dose: 650 mg - Objective Vital Signs: Vital Signs Temperature 98.4 F 04/09/18 01:00 Pulse Rate 67 04/09/18 01:00 Respiratory Rate 20 04/09/18 01:00 Blood Pressure 168/87 04/09/18 01:00 O2 Sat by Pulse Oximetry (%) 94 L 04/08/18 20:40 Constitutional: Yes: Calm Eyes: Yes: Conjunctiva Clear HENT: Yes: Atraumatic Neck: Yes: Supple Cardiovascular: Yes: S1, S2 Respiratory: Yes: CTA Bilaterally Gastrointestinal: Yes: Soft Musculoskeletal: Yes: WNL Edema: Yes Edema: LLE: Trace, RLE: Trace Neurological: Yes: Oriented Psychiatric: Yes: Oriented Labs: CBC, BMP 04/09/18 06:10 04/09/18 06:10 INR, PTT INR 1.14 (0.82-1.09) 04/03/18 00:10 Problem List - Problems (1) Acute CHF (congestive heart failure) Code(s): I50.9 - HEART FAILURE, UNSPECIFIED (2) CKD (chronic kidney disease) Code(s): N18.9 - CHRONIC KIDNEY DISEASE, UNSPECIFIED Assessment/Plan Current Medications Generic Name Dose Route Start Last Admin Trade Name Freq PRN Reason Stop Dose Admin Acetaminophen 650 mg 04/06/18 16:56 04/09/18 00:15 Tylenol - PO 650 mg Q6H PRN Administration MILD PAIN Albuterol/Ipratropium 1 amp 04/04/18 20:00 04/09/18 08:53 Duoneb - NEB 1 amp RQID [facility] Administration Diphenhydramine HCl 25 mg 04/04/18 14:42 04/08/18 21:42 Benadryl - PO 25 mg Q6H PRN Administration ITCHING Heparin Sodium (Porcine) 5,000 unit 04/08/18 22:00 04/09/18 06:03 Heparin - SQ 5,000 unit TID [facility] Administration Insulin Aspart 1 vial 04/03/18 23:34 05/24/18 06:04 Novolog Vial Sliding Scale - SQ Not Given ACHS [facility] Protocol Insulin Detemir 25 units 04/04/18 07:00 04/09/18 06:04 Levemir Vial SQ Not Given AM [facility] Insulin Detemir 10 units 04/04/18 22:00 04/08/18 22:17 Levemir Vial SQ 10 units HS [facility] Administration Isosorbide Dinitrate 30 mg 04/07/18 18:00 04/09/18 10:45 Isordil - PO 30 mg BIDISORDIL [facility] Administration Metoprolol Succinate 25 mg 04/03/18 10:00 04/09/18 10:45 Toprol Xl - PO 25 mg BID [facility] Administration Mupirocin 1 applic 04/09/18 10:00 04/09/18 10:46 Bactroban 2% Ointment - TP Not Given DAILY [facility] Neomycin/Polymyxin/Hydrocortisone 4 drop 04/04/18 12:00 04/09/18 06:03 Cortisporin Otic Solution - AD 4 drop Q6HPO [facility] Administration Oxycodone HCl 5 mg 04/06/18 16:55 04/08/18 22:43 Roxicodone - PO 5 mg Q6H PRN Administration PAIN LEVEL 7 - 10 Polyethylene Glycol 17 gm 04/07/18 14:00 04/09/18 10:46 Miralax (For Daily Use) - PO Not Given DAILY [facility] Pramipexole Dihydrochloride 0.25 mg 04/04/18 22:00 04/08/18 21:42 Mirapex - PO 0.25 mg HS [facility] Administration Sodium Bicarbonate 650 mg 04/07/18 16:45 04/09/18 06:03 Sodium Bicarbonate - PO 650 mg TID [facility] Administration Impression 1. CKD 2. anemia 3. CHF 4. HTN 5. DM 6. hyperlipidemia 7. anxiety 8. uterine cancer 9. hx GI bleed 10. COPD 11. neutropenia 12. hyperkalemia Plan - resume PO lasix - stop hydralazine and compazine as she was neutropenic - monitor bp, can increase metoprolol if bp is elevated - pt now off of fluids as well - discussed with heme onc - low potassium diet - avoid nsaids - will follow Dr Moore
--- NOTE | 2018-04-09 13:31 | PN ---
Progress Note (short form) - Note Progress Note: pt seen and examined Feels better than yesterday No fevers wanted to go home AFVSs Cor: RSR, No murmurs, No gallops Lungs: Clear to P&A Abd: Soft, Normal bowel sounds, No organomegaly Ext:No significant edema Last Vital Signs Temp Pulse Resp BP Pulse Ox 98.4 F 67 20 168/87 94 L 04/09/18 01:00 04/09/18 01:00 04/09/18 01:00 04/09/18 01:00 04/08/18 20:40 CBC, BMP 04/09/18 06:10 04/09/18 06:10 Current Medications Generic Name Dose Route Start Last Admin Trade Name Freq PRN Reason Stop Dose Admin Acetaminophen 650 mg 04/06/18 16:56 04/09/18 00:15 Tylenol - PO 650 mg Q6H PRN Administration MILD PAIN Albuterol/Ipratropium 1 amp 04/04/18 20:00 04/09/18 08:53 Duoneb - NEB 1 amp RQID [facility] Administration Diphenhydramine HCl 25 mg 04/04/18 14:42 04/08/18 21:42 Benadryl - PO 25 mg Q6H PRN Administration ITCHING Heparin Sodium (Porcine) 5,000 unit 04/08/18 22:00 04/09/18 06:03 Heparin - SQ 5,000 unit TID [facility] Administration Insulin Aspart 1 vial 04/03/18 23:34 04/09/18 06:04 Novolog Vial Sliding Scale - SQ Not Given ACHS [facility] Protocol Insulin Detemir 25 units 04/04/18 07:00 04/09/18 06:04 Levemir Vial SQ Not Given AM [facility] Insulin Detemir 10 units 04/04/18 22:00 04/08/18 22:17 Levemir Vial SQ 10 units HS [facility] Administration Isosorbide Dinitrate 30 mg 04/07/18 18:00 04/09/18 10:45 Isordil - PO 30 mg BIDISORDIL [facility] Administration Metoprolol Succinate 25 mg 04/03/18 10:00 04/09/18 10:45 Toprol Xl - PO 25 mg BID [facility] Administration Mupirocin 1 applic 04/09/18 10:00 04/09/18 10:46 Bactroban 2% Ointment - TP Not Given DAILY [facility] Neomycin/Polymyxin/Hydrocortisone 4 drop 04/04/18 12:00 04/09/18 06:03 Cortisporin Otic Solution - AD 4 drop Q6HPO [facility] Administration Oxycodone HCl 5 mg 04/06/18 16:55 04/08/18 22:43 Roxicodone - PO 5 mg Q6H PRN Administration PAIN LEVEL 7 - 10 Polyethylene Glycol 17 gm 04/07/18 14:00 04/09/18 10:46 Miralax (For Daily Use) - PO Not Given DAILY [facility] Pramipexole Dihydrochloride 0.25 mg 04/04/18 22:00 04/08/18 21:42 Mirapex - PO 0.25 mg HS [facility] Administration Sodium Bicarbonate 650 mg 04/07/18 16:45 04/09/18 06:03 Sodium Bicarbonate - PO 650 mg TID [facility] Administration 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 Multiple co-morbids including CHF, COPD ,CKD Supportive transfusion Monitor Vitals. Supportive care appreciate renal for adjusting the meds for OP f.u for CBC check, pt/office aware- next friday. she is aware to call with any issues.
[2018-04-09 14:26] VITALS: BP 150/60; PULSE 68; TEMP 98.6
--- NOTE | 2018-04-09 15:04 | DS ---
Physical Examination Vital Signs: Vital Signs Temperature 98.6 F 04/09/18 11:00 Pulse Rate 68 04/09/18 11:00 Respiratory Rate 20 04/09/18 11:00 Blood Pressure 150/60 04/09/18 11:00 O2 Sat by Pulse Oximetry (%) 95 04/09/18 11:00 Constitutional: Yes: No Distress Eyes: Yes: WNL HENT: Yes: WNL Neck: Yes: WNL, Rigid Cardiovascular: Yes: WNL Respiratory: Yes: WNL Gastrointestinal: Yes: WNL Musculoskeletal: Yes: WNL Extremities: Yes: WNL Edema: No Peripheral Pulses WNL: Yes Integumentary: Yes: WNL Wound/Incision: Yes: Clean/Dry Neurological: Yes: WNL ...Motor Strength: WNL Psychiatric: Yes: WNL Labs: CBC, BMP 04/09/18 06:10 04/09/18 06:10 Discharge Summary Reason For Visit: CKD, ACUTE ON CHRONIC RESPIRATORY FAILURE Current Active Problems Abnormal EKG (Acute) Acute CHF (congestive heart failure) (Acute) Breast cancer (Acute) CKD (chronic kidney disease) (Acute) COPD exacerbation (Acute) Controlled type 2 diabetes mellitus with diabetic peripheral angiopathy without gangrene (Acute) DVT prophylaxis (Acute) Generalized muscle ache (Acute) Hypomagnesemia (Acute) Leukocytosis (Acute) Leukopenia (Acute) Procedures: Principal: CARDIAC WORKUP FOR ST PROLONGATION AND QT INTERVAL PROLONGATION TELEMETRY MONITORING Hospital Course: WILL NEED FOLLOW UP WITH HEME/ONC FRIDAY FOR CBC D/W DR GTZ Condition: Fair - Instructions Diet, Activity, Other Instructions: LOW SODIUM RENAL F/U DR KIKI GTZ FOR HEME/ONC FridayMarch FOR CBC Referrals: Anyi Mcgrath MD [Primary Care Provider] - Disposition: HOME - Home Medications Comprehensive Discharge Medication List: Ambulatory Orders hydrALAZINE HCL [Apresoline -] 50 mg PO BID #60 tablet 11/19/14 Alprazolam [Xanax] 0.5 mg PO HS 06/23/17 Fluticasone/Vilanterol [Breo Ellipta 100-25 Mcg INH] 1 each IH DAILY 11/28/17 Atorvastatin Ca [Lipitor] 20 mg PO HS #30 tab 03/11/18 Folic Acid 1 mg PO DAILY #30 tab 03/11/18 Acetaminophen [Tylenol .Regular Strength -] 650 mg PO Q6H PRN tablet 04/09/18 Albuterol 2.5/Ipratropium 0.5 [Duoneb -] 1 amp NEB RQID #120 amp 04/09/18 Diphenhydramine HCl [Benadryl Capsule -] 25 mg PO Q6H PRN capsule 04/09/18 Insulin Detemir [Levemir Flextouch] 100 unit SQ BID #120 insuln.pen MDD 25 UNITS AM AND 10 UNITS PM 04/09/18 Metoprolol Succinate [Toprol XL -] 25 mg PO BID #30 tab.sr.24h 04/09/18 Mupirocin Ointment [Bactroban 2% Ointment -] 1 applic TP DAILY applic 04/09/18 Neomycin/Polymyxn/Hc [Cortisporin *Otic Solution*-] 4 drop AD Q6HPO #1 drops Polyethylene Glycol 3350 [Miralax 119 gm Btl -] 17 gm PO DAILY bottle 04/09/18 Pramipexole Dihydrochloride [Mirapex -] 0.25 mg PO HS #30 tablet 04/09/18 Sodium Bicarbonate - 650 mg PO TID tablet 04/09/18 hydrALAZINE HCL [Apresoline -] 50 mg PO BID tablet 04/09/18 oxyCODONE HCL [Roxicodone -] 5 mg PO Q6H PRN tablet MDD 4 04/09/18
== END 2018-04-09 16:20 | disposition home or self-care (01) | DRG 291 ==
LOC: JER 23:02 → JERBED 04-03 01:56 → UNDOADMIN 04-03 02:20 → JERBED 04-03 02:20 → J4W 04-03 05:39
PROVIDERS: ADMIT Internal Medicine; ATTEND Family Medicine
PROC: 5A09557 Assistance with Respiratory Ventilation, Greater than 96 Consecutive Hours, Continuous Positive Airway Pressure (ICD-10-PCS; principal; 2018-04-03)
DX: I13.0 Hypertensive heart and chronic kidney disease with heart failure and stage 1 through stage 4 chronic kidney disease, or unspecified chronic kidney disease (principal); I50.21 Acute systolic (congestive) heart failure; J96.20 Acute and chronic respiratory failure, unspecified whether with hypoxia or hypercapnia; D61.810 Antineoplastic chemotherapy induced pancytopenia; N17.9 Acute kidney failure, unspecified; J44.1 Chronic obstructive pulmonary disease with (acute) exacerbation; N18.3 Chronic kidney disease, stage 3 (moderate); I25.10 Atherosclerotic heart disease of native coronary artery without angina pectoris; G47.33 Obstructive sleep apnea (adult) (pediatric); E78.5 Hyperlipidemia, unspecified; C50.919 Malignant neoplasm of unspecified site of unspecified female breast; E11.22 Type 2 diabetes mellitus with diabetic chronic kidney disease; E11.65 Type 2 diabetes mellitus with hyperglycemia; D72.829 Elevated white blood cell count, unspecified; E83.42 Hypomagnesemia; E11.51 Type 2 diabetes mellitus with diabetic peripheral angiopathy without gangrene; D72.819 Decreased white blood cell count, unspecified; Z79.4 Long term (current) use of insulin; D64.9 Anemia, unspecified; F41.9 Anxiety disorder, unspecified; D70.9 Neutropenia, unspecified; E87.5 Hyperkalemia; E66.9 Obesity, unspecified; Z68.34 Body mass index [BMI] 34.0-34.9, adult; R94.31 Abnormal electrocardiogram [ECG] [EKG]; F17.210 Nicotine dependence, cigarettes, uncomplicated
CPT/HCPCS: 36415; 36430; 71045-TC-FY; 76775-TC; 76856-TC; 80048; 80053; 80061; 82310; 82550; 82553; 82570; 82803; 82962; 83036; 83605; 83721; 83735; 83880; 83970; 84100; 84484; 84540; 85025; 85027; 85610; 85730; 86850; 86900; 86901; 86922; 93005; 93010; 94640; 99283-25; J1644; J7620; P9038; P9058

== ENCOUNTER 2018-04-22 07:33 | Day surgery (SDC) | payer OTHER ==
[2018-04-22] MEDS ORDERED: SODIUM CHLORIDE 250 ML IV ONE ×2 (08:00→10:30)
[2018-04-22] MEDS ORDERED: DEXAMETHASONE INJECTION 20 MG in SODIUM CHLORIDE 50 ML IVPB ONE (08:30)
[2018-04-22] MEDS ORDERED: PALONOSETRON HCL 0.25 MG/5 ML VIAL IVPUSH ONE (08:30)
[2018-04-22] MEDS ORDERED: FOSAPREPITANT DIMEGLUMINE 150 MG in SODIUM CHLORIDE 145 ML IVPB ONE (08:30)
[2018-04-22] MEDS ORDERED: DOCETAXEL IV ONE (09:00)
[2018-04-22] MEDS ORDERED: SODIUM CHLORIDE IV ONE (09:00)
[2018-04-22] MEDS ORDERED: SODIUM CHLORIDE IVPB ONE (10:00)
[2018-04-22] MEDS ORDERED: CYCLOPHOSPHAMIDE IVPB ONE (10:00)
[2018-04-22 10:35] LABS: BASO % 0.5 % (0-2.0); EOS % 0.4 % (0-4.5); HEMATOCRIT 28.8 % (32.4-45.2); HEMOGLOBIN 9.1 GM/dL (10.7-15.3); LYMPH % 3.1 % (8-40); MCH 27.9 pg (25.7-33.7); MCHC 31.8 g/dl (32.0-36.0); MEAN CELL VOLUME 87.9 fl (80-96); MEAN PLT VOLUME 9.3 fl (7.5-11.1); MONO % 10.5 % (3.8-10.2); NEUT % 85.5 % (42.8-82.8); PLATELET COUNT 270 K/MM3 (134-434); RBC 3.28 M/mm3 (3.60-5.2); RDW 16.4 % (11.6-15.6); WHITE BLOOD COUNT 22.8 K/mm3 (4.0-10.0)
[2018-04-22 11:11] LABS: ANION GAP 11 (8-16); BLOOD UREA NITROGEN 57 mg/dL (7-18); CALCIUM 7.4 mg/dL (8.5-10.1); CHLORIDE 107 mmol/L (98-107); CO2 21 mmol/L (21-32); CREATININE 2.4 mg/dL (0.55-1.02); GLUCOSE,RANDOM 110 mg/dL (74-106); MAGNESIUM 1.4 mg/dL (1.8-2.4); POTASSIUM 4.2 mmol/L (3.5-5.1); SODIUM 139 mmol/L (136-145)
[2018-04-22] MEDS ORDERED: MAGNESIUM 2GM/50ML STERILE WATER IVPB IVPB ONE (11:31)
[2018-04-22 11:50] LABS: PLATELET ESTIMATE NORMAL
[2018-04-22 13:05] LABS: ALBUMIN 2.8 g/dl (3.4-5.0); ALK PHOS 192 U/L (45-117); BILIRUBIN,DIRECT 0.3 mg/dL (0.0-0.2); BILIRUBIN,TOTAL 0.6 mg/dL (0.2-1.0); SGOT/AST 23 U/L (15-37); SGPT/ALT 28 U/L (12-78); TOT PROT 6.4 g/dl (6.4-8.2)
[2018-04-22] MEDS ORDERED: PORTA CATH FLUSH 10 ML IVPUSH ONE ×2 (15:48→18:17)
[2018-04-22 15:49] VITALS: BP 116/64; PULSE 87; TEMP 98.1
== END 2018-04-22 16:45 | disposition home or self-care (01) ==
LOC: JONCCHEMO 07:33 → J7W 11:17 → JONCCHEMO 16:45
PROVIDERS: ATTEND Internal Medicine Hematology & Oncology
DX: Z51.11 Encounter for antineoplastic chemotherapy (principal); C50.911 Malignant neoplasm of unspecified site of right female breast; E11.22 Type 2 diabetes mellitus with diabetic chronic kidney disease; I12.9 Hypertensive chronic kidney disease with stage 1 through stage 4 chronic kidney disease, or unspecified chronic kidney disease; N18.4 Chronic kidney disease, stage 4 (severe)
CPT/HCPCS: 36415; 80048; 80053; 80076; 83735; 85025; 96361; 96366; 96367; 96375; 96413; 96415; 96417; J1100; J1453; J2469; J9070; J9171

== ENCOUNTER 2018-04-23 07:14 | Day surgery (SDC) | payer OTHER ==
[2018-04-23] MEDS ORDERED: PEGFILGRASTIM 6 MG/0.6 ML DISP.SYRIN SQ ONE (09:00)
[2018-04-23 17:10] VITALS: BP 167/89; PULSE 81; TEMP 97.9
== END 2018-04-23 13:10 | disposition home or self-care (01) ==
LOC: JONCCHEMO 07:14
PROVIDERS: ATTEND Internal Medicine Hematology & Oncology
PROC: 3E013GC Introduction of Other Therapeutic Substance into Subcutaneous Tissue, Percutaneous Approach (ICD-10-PCS; principal; 2018-04-23)
DX: C50.911 Malignant neoplasm of unspecified site of right female breast (principal); Z76.89 Persons encountering health services in other specified circumstances
CPT/HCPCS: 96372; J2505

== ENCOUNTER 2018-05-13 07:34 | Day surgery (SDC) | payer OTHER ==
[2018-05-13] MEDS ORDERED: SODIUM CHLORIDE 250 ML IV ONE ×2 (09:00→12:00)
[2018-05-13] MEDS ORDERED: PALONOSETRON HCL 0.25 MG/5 ML VIAL IVPUSH ONE (10:00)
[2018-05-13] MEDS ORDERED: FOSAPREPITANT DIMEGLUMINE 150 MG in SODIUM CHLORIDE 150 ML IVPB ONE (10:00)
[2018-05-13] MEDS ORDERED: DEXAMETHASONE INJECTION 20 MG in SODIUM CHLORIDE 50 ML IVPB ONE (10:00)
[2018-05-13] MEDS ORDERED: DOCETAXEL IV ONE (10:30)
[2018-05-13] MEDS ORDERED: SODIUM CHLORIDE IV ONE (10:30)
[2018-05-13 11:03] LABS: BASO % 0.6 % (0-2.0); EOS % 0.4 % (0-4.5); HEMATOCRIT 24.2 % (32.4-45.2); HEMOGLOBIN 7.7 GM/dL (10.7-15.3); LYMPH % 4.9 % (8-40); MCHC 31.8 g/dl (32.0-36.0); MEAN PLT VOLUME 8.2 fl (7.5-11.1); MONO % 15.9 % (3.8-10.2); NEUT % 78.2 % (42.8-82.8); PLATELET COUNT 319 K/MM3 (134-434); RBC 2.75 M/mm3 (3.60-5.2); RDW 17.4 % (11.6-15.6); WHITE BLOOD COUNT 8.1 K/mm3 (4.0-10.0)
[2018-05-13] MEDS ORDERED: SODIUM CHLORIDE IVPB ONE (11:30)
[2018-05-13] MEDS ORDERED: CYCLOPHOSPHAMIDE IVPB ONE (11:30)
[2018-05-13 11:31] LABS: ALBUMIN 2.4 g/dl (3.4-5.0); ANION GAP 10 (8-16); BLOOD UREA NITROGEN 42 mg/dL (7-18); CALCIUM 7.6 mg/dL (8.5-10.1); CHLORIDE 110 mmol/L (98-107); CO2 20 mmol/L (21-32); GLUCOSE,RANDOM 93 mg/dL (74-106); MAGNESIUM 1.3 mg/dL (1.8-2.4); POTASSIUM 4.6 mmol/L (3.5-5.1); SGOT/AST 16 U/L (15-37); SGPT/ALT 18 U/L (12-78); SODIUM 140 mmol/L (136-145)
[2018-05-13 11:36] LABS: ALK PHOS 164 U/L (45-117); BILIRUBIN,TOTAL 0.4 mg/dL (0.2-1.0); TOT PROT 6.1 g/dl (6.4-8.2)
[2018-05-13] MEDS ORDERED: MAGNESIUM SULFATE IN WATER 2 GM/50 ML IVPB IVPB ONE (12:30)
[2018-05-13 15:16] VITALS: TEMP 98.5
[2018-05-13] MEDS ORDERED: PORTA CATH FLUSH 10 ML IVPUSH ONE (15:23)
[2018-05-13 16:50] VITALS: BP 158/77; PULSE 69
[2018-05-13 20:18] LABS: ANISOCYTOSIS 1+; MACROCYTOSIS 1+; PLATELET ESTIMATE ADEQUATE
[2018-05-14 06:11] LABS: HEP A AB, IGM Negative (Negative)
[2018-05-14 08:11] LABS: SERUM IRON SATURATION 30 % (15-55); TOTAL IRON BINDING CAPACITY 139 ug/dL (250-450); UIBC 97 ug/dL (118-369)
== END 2018-05-13 17:15 | disposition home or self-care (01) ==
LOC: JONCCHEMO 07:34 → J7W 11:34 → JONCCHEMO 17:15
PROVIDERS: ATTEND Internal Medicine Hematology & Oncology
DX: Z51.11 Encounter for antineoplastic chemotherapy (principal); C50.911 Malignant neoplasm of unspecified site of right female breast
CPT/HCPCS: 36415; 80053; 82728; 83540; 83550; 83735; 85025; 86708; 96361; 96367; 96375; 96413; 96417; J1100; J1453; J2469; J9070; J9171

== ENCOUNTER 2018-06-03 07:43 | Day surgery (SDC) | payer OTHER ==
[2018-06-03] MEDS ORDERED: SODIUM CHLORIDE 250 ML IV ONE ×2 (08:00→10:30)
[2018-06-03] MEDS ORDERED: PALONOSETRON HCL 0.25 MG/5 ML VIAL IVPUSH ONE (08:30)
[2018-06-03] MEDS ORDERED: DEXAMETHASONE INJECTION 20 MG in SODIUM CHLORIDE 50 ML IVPB ONE (08:30)
[2018-06-03] MEDS ORDERED: FOSAPREPITANT DIMEGLUMINE 150 MG in SODIUM CHLORIDE 145 ML IVPB ONE (08:30)
[2018-06-03] MEDS ORDERED: DOCETAXEL IV ONE (09:00)
[2018-06-03] MEDS ORDERED: SODIUM CHLORIDE IV ONE (09:00)
[2018-06-03 09:59] LABS: BASO % 0.7 % (0-2.0); EOS % 0.3 % (0-4.5); HEMATOCRIT 29.6 % (32.4-45.2); HEMOGLOBIN 9.5 GM/dL (10.7-15.3); LYMPH % 7.9 % (8-40); MCH 28.3 pg (25.7-33.7); MCHC 32.1 g/dl (32.0-36.0); MEAN CELL VOLUME 88.1 fl (80-96); MEAN PLT VOLUME 9.2 fl (7.5-11.1); MONO % 14.5 % (3.8-10.2); NEUT % 76.6 % (42.8-82.8); PLATELET COUNT 288 K/MM3 (134-434); RBC 3.36 M/mm3 (3.60-5.2); RDW 17.6 % (11.6-15.6); WHITE BLOOD COUNT 10.1 K/mm3 (4.0-10.0)
[2018-06-03] MEDS ORDERED: CYCLOPHOSPHAMIDE IVPB ONE ×2 (10:00→12:30)
[2018-06-03] MEDS ORDERED: SODIUM CHLORIDE IVPB ONE ×2 (10:00→12:30)
[2018-06-03] MEDS ORDERED: DOCETAXEL 100 MG in SODIUM CHLORIDE 250 ML IV ONE (11:30)
[2018-06-03] MEDS ORDERED: MAGNESIUM SULFATE 2 GM in SODIUM CHLORIDE 100 ML IVPB ONE (11:45)
[2018-06-03 17:50] VITALS: TEMP 97.7
[2018-06-03] MEDS ORDERED: PORTA CATH FLUSH 10 ML IVPUSH ONE (17:50)
[2018-06-03 17:53] VITALS: BP 126/64; PULSE 80
== END 2018-06-03 17:15 | disposition home or self-care (01) ==
LOC: JONCCHEMO 07:43 → J7W 11:26 → JONCCHEMO 17:15
PROVIDERS: ATTEND Internal Medicine Hematology & Oncology
DX: Z51.11 Encounter for antineoplastic chemotherapy (principal); C50.919 Malignant neoplasm of unspecified site of unspecified female breast; E11.9 Type 2 diabetes mellitus without complications; Z79.4 Long term (current) use of insulin
CPT/HCPCS: 36415; 85025; 96361; 96366; 96367; 96375; 96413; 96417; J1100; J1453; J2469; J9070; J9171

== ENCOUNTER 2018-06-04 07:38 | Day surgery (SDC) | payer OTHER ==
[2018-06-04] MEDS ORDERED: PEGFILGRASTIM 6 MG/0.6 ML DISP.SYRIN SQ ONE (08:00)
[2018-06-04] MEDS ORDERED: SODIUM CHLORIDE 0.45% 750 ML IV SCH (12:00)
[2018-06-04 15:04] VITALS: TEMP 98
[2018-06-04] MEDS ORDERED: PORTA CATH FLUSH 10 ML IVPUSH ONE (15:04)
[2018-06-04 15:06] VITALS: BP 158/85; PULSE 91
== END 2018-06-04 15:10 | disposition home or self-care (01) ==
LOC: JONCNONCHE 07:38 → J7W 11:22 → JONCNONCHE 15:10
PROVIDERS: ATTEND Internal Medicine Hematology & Oncology
PROC: 3E013GC Introduction of Other Therapeutic Substance into Subcutaneous Tissue, Percutaneous Approach (ICD-10-PCS; principal; 2018-06-04)
PROC: 3E0337Z Introduction of Electrolytic and Water Balance Substance into Peripheral Vein, Percutaneous Approach (ICD-10-PCS; 2018-06-04)
DX: C50.919 Malignant neoplasm of unspecified site of unspecified female breast (principal); D61.810 Antineoplastic chemotherapy induced pancytopenia; E11.9 Type 2 diabetes mellitus without complications; Z79.4 Long term (current) use of insulin; Z76.89 Persons encountering health services in other specified circumstances
CPT/HCPCS: 96360; 96361; 96365; 96366; 96372; 96401; 96523; J2505

== ENCOUNTER 2018-06-14 21:15 | Inpatient (IN) | payer OTHER ==
[2018-06-14] MEDS ORDERED: ALBUTEROL SO4 2.5/IPRATROPIUM 0.5 INH SOL 3 ML VIAL.NEB. NEB ONE ×2 (21:28→21:35)
[2018-06-14 21:32] VITALS: BMI 28.4
--- NOTE | 2018-06-14 21:38 | PDOC ---
Attending Attestation - HPI HPI: 06/15/18 01:14 The patient is a 62 year old female with past medical history of Uterine CA ( 2007), T2 N1 Triple Negative Breast Ca (finished chemo, awaiting radiation), Systolic cardiomyopathy, CAD, PAD, CHF, DM, HLD, PARVEZ, HTN, and CKD presents to the emergency department with pain. The patient presents with pain to the L. thigh for the past week thats been affecting her ambulation. Denies fever, chills, cough or a headache. Denies chest pain or shortness of breath. Denies numbness, tingling or loss of sensation. Denies vertigo or dizziness. Allergies: NKDA Social history: Former smoker. No reported use of alcohol or recreational drug use. Surgical history: lumpectomy PCP: Dr. Mcgrath Oncologist: Dr. Abel Pearce. <Yarely Lozada - Last Filed: 06/15/18 01:14> - Resident Resident Name: [place] - ED Attending Attestation I have performed the following: I have examined & evaluated the patient, The case was reviewed & discussed with the resident, I agree w/resident's findings & plan - HPI HPI: 06/15/18 01:07 Agree with resident exam. Pt is jandiced. She complains of left leg pain. But no swelling and minimal tenderness. +FROM - Physicial Exam PE: 06/15/18 02:02 Agree with resident exam - Medical Decision Making 06/15/18 02:02 Femir XR is normal. CXR also normal. Patient Name: JOSE ROGERS THIS IS A PRELIMINARY REPORT FROM IMAGING OXYGEN EQUIPMENT TECHNICIAN DATE OF SERVICE: 2018-06-14 22:18:53 IMAGES: 38 EXAM: Venous duplex unilateral left lower extremity HISTORY: Rule out DVT COMPARISON: None. FINDINGS: There is no DVT in the left lower extremity. IMPRESSION: No DVT. 06/15/18 02:03 Pt will be admitted for her elevated WBC and anemia. Dr Beth her diesel dinkey engineer is aware. 06/15/18 02:04 Hospitalists aware also <Tiffanie Shen - Last Filed: 06/15/18 02:04>
--- NOTE | 2018-06-14 22:00 | PDOC ---
History of Present Illness - General Chief Complaint: Pain, Acute Stated Complaint: LEFT LEG TIGH PAIN Time Seen by Provider: 06/14/18 21:23 - History of Present Illness Initial Comments: 06/14/18 22:08 62 y/o woman with a PMH of T2 N1 Triple Negative Breast Ca (done with chemo, supposed to start radiation in the near future) CAD, CHF, COPD, Emphysema, HTN, HLD, CKD, PARVEZ, BIBA to the Ed for Sharp upper thigh pain, making her unable to stand. Also complaining of weakness and sob. Recently finished course of chemotherapy. Patient stating she is short of breath, asking for duoneb. HEme/Onc: Dr. Beth Past History - Past Medical History Allergies/Adverse Reactions: Allergies Allergy/AdvReac Type Severity Reaction Status Date / Time No Known Allergies Allergy Verified 06/14/18 21:29 Home Medications: Ambulatory Orders hydrALAZINE HCL [Apresoline -] 50 mg PO BID #60 tablet 11/19/14 Alprazolam [Xanax] 0.5 mg PO HS 06/23/17 Fluticasone/Vilanterol [Breo Ellipta 100-25 Mcg INH] 1 each IH DAILY 11/28/17 Atorvastatin Ca [Lipitor] 20 mg PO HS #30 tab 03/11/18 Folic Acid 1 mg PO DAILY #30 tab 03/11/18 Acetaminophen [Tylenol .Regular Strength -] 650 mg PO Q6H PRN tablet 04/09/18 Albuterol 2.5/Ipratropium 0.5 [Duoneb -] 1 amp NEB RQID #120 amp 04/09/18 Diphenhydramine HCl [Benadryl Capsule -] 25 mg PO Q6H PRN capsule 04/09/18 Insulin Detemir [Levemir Flextouch] 100 unit SQ BID #120 insuln.pen MDD 25 UNITS AM AND 10 UNITS PM 04/09/18 Mupirocin Ointment [Bactroban 2% Ointment -] 1 applic TP DAILY applic 04/09/18 Neomycin/Polymyxn/Hc [Cortisporin *Otic Solution*-] 4 drop AD Q6HPO #1 drops Polyethylene Glycol 3350 [Miralax 119 gm Btl -] 17 gm PO DAILY bottle 04/09/18 Pramipexole Dihydrochloride [Mirapex -] 0.25 mg PO HS #30 tablet 04/09/18 Sodium Bicarbonate - 650 mg PO TID tablet 04/09/18 Metoprolol Tartrate [Lopressor -] 25 mg PO BID 05/14/18 Anemia: Yes Asthma: Yes Cancer: Yes (Uterine Ca - 2007,rt breast ca,) Cardiac Disorders: Yes (Systolic cardiomyopathy, CAD, PAD) CVA: No COPD: No CHF: Yes Dementia: No Diabetes: Yes GI Disorders: Yes (Colon polyps) Disorders: Yes HTN: Yes Hypercholesterolemia: Yes Kidney Stones: Yes (CKD) Liver Disease: No Seizures: No Thyroid Disease: No - Surgical History Abdominal Surgery: No Appendectomy: No Cardiac Surgery: No Cholecystectomy: No Lung Surgery: No Neurologic Surgery: No Orthopedic Surgery: No - Family Disease History Family Disease History: Other: Father (kidney disease), Brother (kidney disease) - Immunization History Immunization Up to Date: Yes - Suicide/Smoking/Psychosocial Hx Smoking Status: Yes Smoking History: Never smoked Years of Tobacco Use: 31 Have you smoked in the past 12 months: No Number of Cigarettes Smoked Daily: 4 Information on smoking cessation initiated: No 'Breaking Loose' booklet given: 03/09/18 Hx Alcohol Use: No Drug/Substance Use Hx: No Substance Use Type: None Hx Substance Use Treatment: No Review of Systems - Review of Systems Able to Perform ROS?: Yes Is the patient limited Khmer proficient: No Constitutional: Yes: Malaise, Weakness HEENTM: No: Symptoms Reported Respiratory: Yes: Shortness of Breath Cardiac (ROS): No: Symptoms Reported ABD/GI: No: Symptoms Reported : No: Symptoms Reported Musculoskeletal: Yes: Other (right ) Integumentary: Yes: Pallor Neurological: Yes: Weakness *Physical Exam - Vital Signs Last Vital Signs Temp Pulse Resp BP Pulse Ox 97.7 F 85 19 133/89 98 06/14/18 21:20 06/14/18 21:20 06/14/18 21:20 06/14/18 21:20 06/14/18 21:20 - Physical Exam General Appearance: Yes: Nourished, Appropriately Dressed, Mild Distress HEENT: positive: EOMI, SREEDHAR, Normal ENT Inspection Respiratory/Chest: positive: Lungs Clear, Normal Breath Sounds. negative: Chest Tender, Respiratory Distress Cardiovascular: positive: Regular Rhythm, Regular Rate, S1, S2 Gastrointestinal/Abdominal: positive: Normal Bowel Sounds, Flat, Soft. negative : Tender Musculoskeletal: positive: Normal Inspection. negative: CVA Tenderness Extremity: positive: Normal Capillary Refill, Normal Inspection, Normal Range of Motion Integumentary: positive: Normal Color, Dry, Warm Neurologic: positive: Fully Oriented, Alert, Normal Mood/Affect ED Treatment Course - LABORATORY CBC & Chemistry Diagram: 06/14/18 21:50 06/14/18 21:50 - RADIOLOGY Radiology Studies Ordered: Category Date Time Status CHEST CTA [CT] Stat CT Scan 06/14/18 21:30 Ordered CHEST PA & LAT [RAD] Stat Radiology 06/14/18 21:30 Ordered DUPLEX VASCUL US-1 LEG [US] Stat Ultrasound 06/14/18 21:29 Ordered - Medications Given in the ED: ED Medications Discontinued Medications Generic Name Dose Route Start Last Admin Trade Name Freq PRN Reason Stop Dose Admin Albuterol/Ipratropium 1 amp 06/14/18 21:28 06/14/18 21:39 Duoneb - NEB 06/14/18 21:29 1 amp ONCE ONE Administration Medical Decision Making - Medical Decision Making 06/14/18 22:51 Given duoneb for sob. PAtient's SOB feels better. Leg still hurts. Basic labs suspecting DVT/PE: Well's score for both is moderate. Spoke to Dr. Beth who advised admitting the patient and transfusing. Given Kayexelate for hyperkalemia. Leukocytosis and bone pain are common side effects of Neulasta. 06/14/18 23:[address] Cummings 06/14/18 23:21 From June 2016: Arterial doppler: "Probable short segmental occlusion of distal posterior tibial artery" 06/14/18 23:49 Pending transfusion or packed RBC's *DC/Admit/Observation/Transfer Diagnosis at time of Disposition: Anemia, Hyperkalemia, Leukocytosis, Weakness, Breast cancer, Controlled type 2 diabetes mellitus with diabetic peripheral angiopathy without gangrene - Discharge Dispostion Decision to Admit order: Yes - Referrals Referrals: Anyi Mcgrath MD [Primary Care Provider] - - Patient Instructions - Post Discharge Activity
[2018-06-14 22:03] LABS: BASO % 0.1 % (0-2.0); EOS % 0.2 % (0-4.5); HEMATOCRIT 22.7 % (32.4-45.2); LYMPH % 1.8 % (8-40); MCH 27.7 pg (25.7-33.7); MCHC 30.4 g/dl (32.0-36.0); MEAN CELL VOLUME 91.2 fl (80-96); MEAN PLT VOLUME 9.6 fl (7.5-11.1); MONO % 0.7 % (3.8-10.2); NEUT % 97.2 % (42.8-82.8); PLATELET COUNT 225 K/MM3 (134-434); RBC 2.48 M/mm3 (3.60-5.2); RDW 18.3 % (11.6-15.6)
[2018-06-14 22:19] LABS: ALBUMIN 2.8 g/dl (3.4-5.0); ANION GAP 8 (8-16); BILIRUBIN,TOTAL 0.2 mg/dL (0.2-1.0); BLOOD UREA NITROGEN 51 mg/dL (7-18); CHLORIDE 114 mmol/L (98-107); CO2 21 mmol/L (21-32); CREATININE 2.3 mg/dL (0.55-1.02); GLUCOSE,RANDOM 143 mg/dL (74-106); POTASSIUM 5.4 mmol/L (3.5-5.1); SGOT/AST 26 U/L (15-37); SODIUM 143 mmol/L (136-145)
[2018-06-14 22:20] LABS: WHITE BLOOD COUNT 69.9 K/mm3 (4.0-10.0)
[2018-06-14 22:21] LABS: HEMOGLOBIN 6.9 GM/dL (10.7-15.3); INR 1.04 (0.82-1.09); PROTHROMBIN TIME (PATIENT) 11.7 SEC (9.7-13.0)
[2018-06-14 22:24] LABS: ACTIVATED PTT 34.8 SECONDS (25.2-36.5)
[2018-06-14 22:25] LABS: ALK PHOS 176 U/L (45-117); SGPT/ALT 18 U/L (12-78)
[2018-06-14] MEDS ORDERED: SODIUM POLYSTYRENE SULFONATE 15 GM/60 ML BOTTLE PO ONE (22:50)
[2018-06-14 23:15] LABS: ANISOCYTOSIS 3+; MACROCYTOSIS 2+
[2018-06-14 23:16] LABS: PLATELET ESTIMATE ADEQUATE; ROULEAU 2+; TOXIC GRANULATION 2+
[2018-06-14] MEDS ORDERED: SODIUM POLYSTYRENE SULFONATE 15 GM/60 ML BOTTLE ONE (23:36)
--- NOTE | 2018-06-15 01:14 | HP ---
CHIEF COMPLAINT: SOB PCP: Ramila HISTORY OF PRESENT ILLNESS: This is a 62 year old female with a significant past medical history of R BrCA, completed chemo 06/04/18, CHF, COPD who presented to the ED with SOB and weakness. Also with left thigh pain. She reports she often gets bone pain after receiving neulasta. ER course was notable for: (1) Hgb 6.9, WBC 66.9 (2) trop neg (3) ECG with new TWI (4) LLE US without DVT Recent Travel: pt denies PAST MEDICAL HISTORY: R BrCA, CAD, Systolic cardiomyopathy, CHF, HTN, HLD, PAD, anemia, COPD ( emphysema), PARVEZ, colon polyps, uterine CA 2006 PAST SURGICAL HISTORY: R breast lumpectomy 2016 Social History: Smokin.5PPD x 45 years Alcohol: pt denies Drugs: pt denies Family History: mother age 68, complications of DM, leg amputation father age 90 brother awaiting kidney and liver transplant, former drug abuser sister s/p thyroid CA sister with schizophrenia no children Allergies No Known Allergies Allergy (Verified 06/14/18 21:29) HOME MEDICATIONS: 3 Medication Instructions Recorded hydrALAZINE HCL [Apresoline -] 50 mg PO BID #60 tablet 11/19/14 Alprazolam [Xanax] 0.5 mg PO HS 06/23/17 Fluticasone/Vilanterol [Breo 1 each IH DAILY 11/28/17 Ellipta 100-25 Mcg INH] Atorvastatin Ca [Lipitor] 20 mg PO HS #30 tab 03/11/18 Folic Acid 1 mg PO DAILY #30 tab 03/11/18 Albuterol 2.5/Ipratropium 0.5 1 amp NEB RQID #120 amp 04/09/18 [Duoneb -] Neomycin/Polymyxn/Hc [Cortisporin 4 drop AD Q6HPO #1 drops 04/09/18 *Otic Solution*-] Pramipexole Dihydrochloride 0.25 mg PO HS #30 tablet 04/09/18 [Mirapex -] Metoprolol Tartrate [Lopressor -] 50 mg PO BID 05/14/18 REVIEW OF SYSTEMS CONSTITUTIONAL: Present: generalized weakness Absent: fever, chills, diaphoresis, malaise, loss of appetite, weight change HEENT: Absent: rhinorrhea, nasal congestion, throat pain, throat swelling, difficulty swallowing, mouth swelling, ear pain, eye pain, visual changes CARDIOVASCULAR: Absent: chest pain, syncope, palpitations, irregular heart rate, lightheadedness , peripheral edema RESPIRATORY: Present: shortness of breath Absent: cough, dyspnea with exertion, orthopnea, wheezing, stridor, hemoptysis GASTROINTESTINAL: Absent: abdominal pain, abdominal distension, nausea, vomiting, diarrhea, constipation, melena, hematochezia GENITOURINARY: Absent: dysuria, frequency, urgency, hesitancy, hematuria, flank pain, genital pain MUSCULOSKELETAL: Present: leg pain Absent: myalgia, arthralgia, joint swelling, back pain, neck pain SKIN: Absent: rash, itching, pallor HEMATOLOGIC/IMMUNOLOGIC: Absent: easy bleeding, easy bruising, lymphadenopathy, frequent infections ENDOCRINE: Absent: unexplained weight gain, unexplained weight loss, heat intolerance, cold intolerance NEUROLOGIC: Absent: headache, focal weakness or paresthesias, dizziness, unsteady gait, seizure, mental status changes, bladder or bowel incontinence PSYCHIATRIC: Absent: anxiety, depression, suicidal or homicidal ideation, hallucinations. PHYSICAL EXAMINATION Vital Signs - 24 hr 3 06/14/18 06/15/18 06/15/18 21:20 00:15 00:55 Temperature 97.7 F 98.2 F Pulse Rate 85 Pulse Rate [ 83 Left] Respiratory 19 17 Rate Blood Pressure 133/89 Blood Pressure 117/63 [Left Arm] O2 Sat by Pulse 98 98 98 Oximetry (%) GENERAL: Awake, alert, and fully oriented, in no acute distress. HEAD: Normal with no signs of trauma. EYES: Pupils equal, round and reactive to light, extraocular movements intact, sclera anicteric, conjunctiva pale. No lid lag. EARS, NOSE, THROAT: Ears normal, nares patent, oropharynx clear without exudates. Moist mucous membranes. NECK: Normal range of motion, supple without lymphadenopathy, JVD, or masses. LUNGS: Breath sounds equal, clear to auscultation bilaterally. No wheezes, and no crackles. No accessory muscle use. HEART: Regular rate and rhythm, normal S1 and S2 without murmur, rub or gallop. ABDOMEN: Soft, nontender, not distended, normoactive bowel sounds, no guarding, no rebound, no masses. No hepatomegaly or splenomegaly. MUSCULOSKELETAL: Normal range of motion at all joints. No bony deformities or tenderness. No CVA tenderness. UPPER EXTREMITIES: 2+ pulses, warm, well-perfused. No cyanosis. No clubbing. No peripheral edema. LOWER EXTREMITIES: 2+ pulses, warm, well-perfused. No calf tenderness. No peripheral edema. pain on palpation left thigh NEUROLOGICAL: Cranial nerves II-XII intact. Normal speech. Normal gait. PSYCHIATRIC: Cooperative. Good eye contact. Appropriate mood and affect. SKIN: Warm, dry, normal turgor, no rashes or lesions noted, normal capillary refill. Laboratory Results - last 24 hr 3 06/14/18 06/14/18 06/14/18 21:49 21:50 21:50 WBC 69.9 H* RBC 2.48 L Hgb 6.9 L* Hct 22.7 L D MCV 91.2 MCH 27.7 MCHC 30.4 L RDW 18.3 H Plt Count 225 D MPV 9.6 Absolute Neuts (auto) 67.9 Neutrophils % 97.2 H D Neutrophils % (Manual) 77.0 D Band Neutrophils % 9.0 Lymphocytes % 1.8 L D Lymphocytes % (Manual) 6.0 L D Monocytes % 0.7 L D Monocytes % (Manual) 3 L Eosinophils % 0.2 Basophils % 0.1 Myelocytes % (Man) 1 D Promyelocytes % (Man) 1 D Nucleated RBC % 0 Metamyelocytes 4 H D Hypochromia 2+ Toxic Granulation 2+ Platelet Estimate Adequate Anisocytosis 3+ Microcytosis 1+ Macrocytosis 2+ Rouleaux 2+ PT with INR INR PTT (Actin FS) Sodium 143 Potassium 5.4 H Chloride 114 H Carbon Dioxide 21 Anion Gap 8 BUN 51 H Creatinine 2.3 H Creat Clearance w eGFR 21.49 Random Glucose 143 H Calcium 8.0 L Total Bilirubin 0.2 AST 26 ALT 18 Alkaline Phosphatase 176 H Creatine Kinase 169 Troponin I 0.02 Total Protein 6.0 L Albumin 2.8 L Blood Type Antibody Screen Crossmatch 3 06/14/18 06/14/18 21:50 21:50 WBC RBC Hgb Hct MCV MCH MCHC RDW Plt Count MPV Absolute Neuts (auto) Neutrophils % Neutrophils % (Manual) Band Neutrophils % Lymphocytes % Lymphocytes % (Manual) Monocytes % Monocytes % (Manual) Eosinophils % Basophils % Myelocytes % (Man) Promyelocytes % (Man) Nucleated RBC % Metamyelocytes Hypochromia Toxic Granulation Platelet Estimate Anisocytosis Microcytosis Macrocytosis Rouleaux PT with INR 11.70 INR 1.04 PTT (Actin FS) 34.8 Sodium Potassium Chloride Carbon Dioxide Anion Gap BUN Creatinine Creat Clearance w eGFR Random Glucose Calcium Total Bilirubin AST ALT Alkaline Phosphatase Creatine Kinase Troponin I Total Protein Albumin Blood Type B POSITIVE Antibody Screen Negative Crossmatch See Detail ECG Normal sinus rhythm vent rate 84, QTC 519 prolonged QT TWI lead 2, 3, aVF, V5-V6, new when compared to previous ECG 04/03/18 Radiology Reports Venous duplex unilateral left lower extremity THIS IS A PRELIMINARY REPORT FROM IMAGING CREW ATTENDANT FINDINGS: There is no DVT in the left lower extremity. IMPRESSION: No DVT. THIS DOCUMENT HAS BEEN ELECTRONICALLY SIGNED Karthik Thapa MD 06/15/2018 00:06 EST Femur and chest xrays awaiting final read ASSESSMENT/PLAN: 62yF with PMH R BrCA, CAD, Systolic cardiomyopathy, CHF, HTN, HLD, PAD, anemia, COPD (emphysema), PARVEZ, DM, colon polyps, uterine CA 2006 presented to the ED with SOB, weakness and left leg pain. Symptomatic anemia - transfuse 2uPRBC - hematology consult leukocytosis - likely due to neulasta - hematology consult ECG changes with SOB without CP - ? due to anemia - trend troponin - admit to tele - repeat ECG in am CAD/CHF/HTN/HLD - cont home meds: lipitor, metoprolol and hydralazine COPD - cont home breo ellipta or formulary equivalent - cont duonebs Leg pain - neg for DVT - xrays without obvious fracture or lesions, await final read - manage pain DM - pt reports she is no longer on insulin because her sugars are "good" - monitor BGM ACHS with novolog sliding scale DVT PPX - defer due to symptomatic anemia unless hematology differs FEN - tolerating po - bmp in am - low sodium, diabetic diet Dispo: pt currently requires further inpatient management of her emergent condition. Visit type - Emergency Visit Emergency Visit: Yes ED Registration Date: 06/14/18 Care time: The patient presented to the Emergency Department on the above date and was hospitalized for further evaluation of their emergent condition. - New Patient This patient is new to me today: Yes Date on this admission: 07/30/18 - Critical Care Critical Care patient: No Hospitalist Screening - Colonoscopy Questionnaire Colonoscopy Questionnaire: Colonoscopy Questionnaire - Patient: 50 - 75 years old and never had a screening colonoscopy: No History of colon or rectal polyps, or CA: No History of IBD, Crohn's disease or UC: No History of abdominal radiation therapy as a child: No - Relative: 1 with colon or rectal CA, or polyps at age 60 or younger: No Colon or rectal CA diagnosed at age 45 or younger: No Multiple relatives with colon or rectal CA: No - Outcome: Screening Result: Negative Screen
[2018-06-15] MEDS ORDERED: ALPRAZolam 0.25 MG TABLET PO PRN (01:32)
[2018-06-15] MEDS ORDERED: ACETAMINOPHEN 325 MG TABLET (FP) PO PRN (02:01)
[2018-06-15] MEDS ORDERED: oxyCODONE HCL 5 MG TABLET PO PRN (02:02)
[2018-06-15] MEDS ORDERED: LOPERAMIDE HCL 2 MG CAPSULE PO ONE (05:03)
[2018-06-15] MEDS ORDERED: LOPERAMIDE HCL 2 MG CAPSULE ONE (05:05)
[2018-06-15 08:11] LABS: BASO % 0.3 % (0-2.0); EOS % 0.1 % (0-4.5); HEMATOCRIT 26.1 % (32.4-45.2); HEMOGLOBIN 8.3 GM/dL (10.7-15.3); LYMPH % 1.7 % (8-40); MCH 28.3 pg (25.7-33.7); MCHC 31.8 g/dl (32.0-36.0); MEAN CELL VOLUME 88.9 fl (80-96); MEAN PLT VOLUME 9.3 fl (7.5-11.1); MONO % 2.7 % (3.8-10.2); NEUT % 95.2 % (42.8-82.8); PLATELET COUNT 207 K/MM3 (134-434); RBC 2.94 M/mm3 (3.60-5.2); RDW 18.2 % (11.6-15.6)
[2018-06-15 08:28] LABS: ANION GAP 8 (8-16); BLOOD UREA NITROGEN 49 mg/dL (7-18); CHLORIDE 113 mmol/L (98-107); CO2 19 mmol/L (21-32); GLUCOSE,RANDOM 97 mg/dL (74-106); MAGNESIUM 1.5 mg/dL (1.8-2.4); POTASSIUM 5.1 mmol/L (3.5-5.1); SODIUM 140 mmol/L (136-145)
[2018-06-15 08:31] LABS: CREATININE 2.2 mg/dL (0.55-1.02); PHOSPHOROUS 5.6 mg/dL (2.5-4.9)
[2018-06-15 08:46] LABS: WHITE BLOOD COUNT 63.3 K/mm3 (4.0-10.0)
[2018-06-15] MEDS ORDERED: ALBUTEROL SO4 2.5/IPRATROPIUM 0.5 INH SOL 3 ML VIAL.NEB. NEB ONE ×2 (09:10→11:38)
[2018-06-15] MEDS: FOLIC ACID 1 MG TABLET (FP) PO SCH (09:22)
[2018-06-15] MEDS: hydrALAZINE HCL 50 MG TABLET (FP) PO SCH ×2 (09:22→22:41)
[2018-06-15] MEDS: ALBUTEROL SO4 2.5/IPRATROPIUM 0.5 INH SOL 3 ML VIAL.NEB. NEB SCH ×4 (09:22→19:54)
[2018-06-15] MEDS ORDERED: METOPROLOL TARTRATE 50 MG TABLET (FP) PO SCH (10:00)
[2018-06-15] MEDS ORDERED: FUROSEMIDE 40 MG TABLET (FP) PO SCH ×2 (10:00→14:00)
--- NOTE | 2018-06-15 10:12 | EKG ---
Test Reason : Blood Pressure : / mmHG Vent. Rate : 084 BPM Atrial Rate : 084 BPM P-R Int : 148 ms QRS Dur : 092 ms QT Int : 440 ms P-R-T Axes : 043 008 -68 degrees QTc Int : 519 ms NORMAL SINUS RHYTHM PROLONGED QT ABNORMAL ECG WHEN COMPARED WITH ECG OF 03-APR-2018 00:14, T WAVE INVERSION NOW EVIDENT IN INFERIOR LEADS T WAVE VARIATION Confirmed by CHANCE VELASCO, HARRISON ([id number]) on 06/15/2018 10:11:37 AM Referred By: Confirmed By:HARRISON FLETCHER MD
[2018-06-15 10:25] LABS: ANISOCYTOSIS 1+; MACROCYTOSIS 1+; OVALOCYTE 1+; PLATELET ESTIMATE NORMAL
--- NOTE | 2018-06-15 10:48 | PN ---
Progress Note, Physician Chief Complaint: 62 y/o woman with a PMH of T2 N1 Triple Negative Breast Ca (done with chemo, supposed to start radiation in the near future) CAD, CHF, COPD, Emphysema, HTN, HLD, CKD, PARVEZ, BIBA to the Ed for left sided Sharp upper thigh pain, making her unable to stand. Also complaining of weakness and sob. Recently finished course of chemotherapy. per patient the pain got so excruciating that she unable to bear it so came to ER in ER found WBC 63 h/h 6.9 got 1 unit of PRBC K 5.4 now improved to 5.1 got kayxelate - Current Medication List Current Medications: Active Medications Acetaminophen (Tylenol -) 650 mg PO Q6H PRN PRN Reason: PAIN LEVEL 1-5 Albuterol/Ipratropium (Duoneb -) 1 amp NEB RQID [facility] Last Admin: 06/15/18 09:22 Dose: 1 amp Alprazolam (Xanax -) 0.5 mg PO HS PRN PRN Reason: ANXIETY Atorvastatin Calcium (Lipitor -) 20 mg PO [facility] Folic Acid (Folic Acid -) 1 mg PO DAILY [facility] Last Admin: 06/15/18 09:22 Dose: 1 mg Furosemide (Lasix -) 40 mg PO DAILY [facility] Last Admin: 06/15/18 09:22 Dose: 40 mg Hydralazine HCl (Apresoline -) 50 mg PO BID [facility] Last Admin: 06/15/18 09:22 Dose: 50 mg Metoprolol Tartrate (Lopressor -) 50 mg PO BID [facility] Last Admin: 06/15/18 09:22 Dose: 50 mg Non-Formulary Medication (Fluticasone/Vilanterol [Breo Ellipta 100-25 Mcg Inh]) 1 each IH DAILY [facility] Oxycodone HCl (Roxicodone -) 5 mg PO Q6H PRN PRN Reason: PAIN LEVEL 6-10 Pramipexole Dihydrochloride (Mirapex -) 0.25 mg PO [facility] - Objective Vital Signs: Vital Signs Temperature 97.7 F 06/15/18 09:23 Pulse Rate 88 06/15/18 09:23 Respiratory Rate 18 06/15/18 09:23 Blood Pressure 140/74 06/15/18 09:23 O2 Sat by Pulse Oximetry (%) 99 06/15/18 09:23 Constitutional: Yes: Calm Cardiovascular: Yes: Regular Rate and Rhythm, S1, S2 Respiratory: Yes: CTA Bilaterally Gastrointestinal: Yes: Normal Bowel Sounds, Soft Musculoskeletal: Yes: Other (tendernes on anterior thigh on palpation no gross abnormality no echymosis,full range of motion) Labs: CBC, BMP 06/15/18 07:45 06/15/18 07:45 INR, PTT INR 1.04 (0.82-1.09) 06/14/18 21:50 Problem List - Problems (1) Abnormal EKG Assessment/Plan: cardiology consult echo ckmb elevated will trend repeat ekg telemonitoring till cleared by cardiology Code(s): R94.31 - ABNORMAL ELECTROCARDIOGRAM [ECG] [EKG] (2) Weakness Assessment/Plan: leg pain maybe musculoskeletal K improved will replete magnesium Doppler negative for dvt on mirapex for RLS topical analgesic PT eval neurology femur xray negative Code(s): R53.1 - WEAKNESS (3) Anemia Assessment/Plan: s/p prbc now h/h improved iron panel and folate ordered stool occult heme Code(s): D64.9 - ANEMIA, UNSPECIFIED (4) Breast cancer Assessment/Plan: heme eval recently completed chemo Code(s): C50.919 - MALIGNANT NEOPLASM OF UNSP SITE OF UNSPECIFIED FEMALE BREAST (5) Hyperkalemia Assessment/Plan: s/p kayxelate K now improved will monitor Code(s): E87.5 - HYPERKALEMIA (6) Leukocytosis Assessment/Plan: maybe secondary to chemo will monitor Code(s): D72.829 - ELEVATED WHITE BLOOD CELL COUNT, UNSPECIFIED (7) CKD (chronic kidney disease) Assessment/Plan: creatinine is stable will monitor renal consult Code(s): N18.9 - CHRONIC KIDNEY DISEASE, UNSPECIFIED Qualifiers: Chronic kidney disease stage: unspecified stage Qualified Code(s): N18.9 - Chronic kidney disease, unspecified
--- NOTE | 2018-06-15 11:03 | CON.CARD ---
Consult Consult Specialty:: cardio - History of Present Illness Chief Complaint: L thigh pain History of Present Illness: 62 F here with L thigh pain. began feeling localized thigh pain 2-3d ago. didn't resolve with aspirin so came to ER. in ER, no DVT on sono. she's had swelling of ankles but stable long time since on chemo, no worse. denies any sob other than longstanding baseline copd sx. no cp. PMH: DM--poor control HTN HPL-- nonisch CMP/CHF-- breast cancer-- CKD hyperkalemia - Past Medical History Cardio/Vascular: Yes: CHF, HTN, Hyperlipdemia, Pulmonary Hypertension Pulmonary: Yes: Asthma, Sleep Apnea (on BIPAP at night) Gastrointestinal: Yes: GI Bleed (see HPI), Other (had EGD and colono 12/31, ) Renal/: Yes: Renal Failure, Renal Inusuff, Other (hyperkalemia) ...LMP: 11/17/07 Endocrine: Yes: Diabetes Mellitus (uncontrolled) - Alcohol/Substance Use Hx Alcohol Use: No - Smoking History Smoking history: Never smoked Have you smoked in the past 12 months: No Aproximately how many cigarettes per day: 4 - Social History ADL: Independent History of Recent Travel: No Home Medications - Allergies Allergies/Adverse Reactions: Allergies Allergy/AdvReac Type Severity Reaction Status Date / Time No Known Allergies Allergy Verified 06/14/18 21:29 - Home Medications Home Medications: Ambulatory Orders hydrALAZINE HCL [Apresoline -] 50 mg PO BID #60 tablet 11/19/14 Alprazolam [Xanax] 0.5 mg PO HS 06/23/17 Fluticasone/Vilanterol [Breo Ellipta 100-25 Mcg INH] 1 each IH DAILY 11/28/17 Atorvastatin Ca [Lipitor] 20 mg PO HS #30 tab 03/11/18 Folic Acid 1 mg PO DAILY #30 tab 03/11/18 Albuterol 2.5/Ipratropium 0.5 [Duoneb -] 1 amp NEB RQID #120 amp 04/09/18 Neomycin/Polymyxn/Hc [Cortisporin *Otic Solution*-] 4 drop AD Q6HPO #1 drops Pramipexole Dihydrochloride [Mirapex -] 0.25 mg PO HS #30 tablet 04/09/18 Metoprolol Tartrate [Lopressor -] 50 mg PO BID 05/14/18 Furosemide [Lasix -] 40 mg PO DAILY 06/15/18 Review of Systems - Review of Systems Constitutional: denies: Chills, Fever Eyes: denies: Eye Pain HENT: denies: Nasal Congestion Neck: denies: Stiffness Cardiovascular: denies: Palpitations Respiratory: denies: Orthopnea, PND Gastrointestinal: denies: Diarrhea, Rectal Bleeding Genitourinary: denies: Burning, Hematuria Musculoskeletal: denies: Muscle Pain Integumentary: denies: Rash Neurological: denies: Numbness, Seizure, Syncope Endocrine: denies: Excessive Sweating Hematology/Lymphatic: denies: Excessive Bleeding Vital Signs: Vital Signs Temperature 97.7 F 06/15/18 09:23 Pulse Rate 88 06/15/18 09:23 Respiratory Rate 18 06/15/18 09:23 Blood Pressure 140/74 06/15/18 09:23 O2 Sat by Pulse Oximetry (%) 99 06/15/18 09:23 Constitutional: Yes: Well Nourished, No Distress Eyes: No: Sclera Icterus HENT: No: Nasal Congestion Neck: No: Decreased ROM Respiratory: Yes: CTA Bilaterally. No: Accessory Muscle Use, Rales, Wheezes Gastrointestinal: Yes: Normal Bowel Sounds. No: Distention, Hepatomegaly, Palpable Mass, Tenderness Cardiovascular: Yes: Regular Rate and Rhythm JVD: No Carotid Bruit: No PMI: Non-Displaced Heart Sounds: Yes: S1, S2. No: Gallop Murmur: No: Systolic Murmur, Diastolic Murmur Musculoskeletal: Yes: Other (No kyphosis) Extremities: No: Cold, Cyanosis Edema: No Peripheral Pulses: 2+ Left Carotid, 2+ Right Carotid, 2+ Left Doralis Pedis, 2+ Right Dorsalis Pedis Integumentary: No: Jaundice Neurological: Yes: Alert, Oriented (x3) Psychiatric: No: Agitated - Other Data Labs, Other Data: CBC, BMP 06/15/18 07:45 06/15/18 07:45 INR, PTT INR 1.04 (0.82-1.09) 06/14/18 21:50 Troponin, BNP 06/14/18 06/15/18 06/15/18 21:49 07:45 07:45 Troponin I 0.02 0.02 Cancelled Troponin, BNP 06/14/18 06/15/18 06/15/18 21:49 07:45 07:45 Troponin I 0.02 0.02 Cancelled Laboratory Tests 06/14/18 06/14/18 06/14/18 21:49 21:50 21:50 WBC Hgb 6.9 L* Plt Count Sodium Potassium Carbon Dioxide BUN Creatinine AST 26 ALT 18 Troponin I 0.02 06/15/18 06/15/18 07:45 07:45 WBC 63.3 H* Hgb 8.3 L Plt Count 207 Sodium 140 Potassium 5.1 Carbon Dioxide 19 L BUN 49 H Creatinine 2.2 H AST ALT Troponin I 0.02 Assessment/Plan Echo 08/03: mod LVE, mod decr EF (global). nl RV. mild-mod MR, mod TR. RVSP 45. LHC 06/29: nl EDP; EF 40% (global); 50-60% OM1 (normal FFR); mild dz others MIBI 06/29 (pers): no STs; moder, partly rev defect AW c/w ischemia; mild LVE, mild-mod global LV hypo (40% EF); MILD TID MIBI 08/27 (pers): no ST change; TDS perfusion b/c of GI artifact and gating artifact; mild LV dilation and mild decr EFvisually (no TID) CXR--clear lungs/pleura ECG--NSR, no path Q's. LVH with repol abn (no signif change vs priors--see ) ASSESSMENT/PLAN 62 yo smoker with h/o systolic cardiomyopathy, non-obstructive cad, HTN, HL, pHTN, PAD, mod PARVEZ on cpap, CKD (cr 1.8 - 2.2), DM, h/o GIB s/p cauterization of avm's, breast cancer on chemo here with high bp, legs swollen. left thigh pain: -no DVT -per hospitalist +/- onc (bony mets?--CXR negative) chronic systolic CHF: -nonisch CMP (prior cath for this w/u). LVEF MODERATELY REDUCED -well compensated previously on lasix 40 bid at home -here 04/03 with decomp CHF after chemo and IVF--treated with IV lasix. lasix 40 po bid resumed at discharge. -cont METOPR (NOTE: SUCCINATE = SYST CHF INDICATION), AND HYDRALAZINE/NITRATES per prior regimen (ordered) -NO EVELINA/ARB, DUE TO RECURRENT SEVERE HYPERKALEMIA (DUE TO PT REPEATED NONCOMPLIANCE WITH REGULAR KAYEXALATE DOSING) -appears euvolemic--continue home lasix 40 po bid long QT interval: -recent incr in baseline QTc, felt sec to use of Reglan at home for nausea -med d/c'd, with rec for compazine prn in future (only anti-emetic that is safe from QT p.o.v.) -present ECG improved, though remains prolonged -replete Mag (ordered). goal K/Mag > 4/2, per usual -current med list reviewed--all meds are low risk in absence of induced electrolyte disturbances -anti-emetics, if needed in future = compazine only (pt informed to call me if ever given new rx--verbalized understanding) anemia: -hgb 6's here on DOA, s/p PRBCs -homar heme-onc -off aspirin (ok= primary prevn indication) CKD: -recent creat range = 2.3-2.9 -fxn stable here Chronic ischemic heart disease: -NONOBSTR OM disease (INCL FFR NEGATIVE), NEVER HAD ANGINA. -continue statin -ASA on hold (anemia) -no s/sx of active CAD here Essential hypertension: - well controlled - cont home meds Chronic obstructive pulmonary disease -STABLE ON BB LONG TIME -no current sx's Obstructive sleep apnea -USES CPAP AT HOME breast ca - honc following. On treatment with taxotere/cytoxan, cycle 1 D1. On Venofer for iron deficinecy , given on 04/02 - bone pains due to neulasta. - + anemia and thrombocytopenia PAD: - known h/o obstructive RLE disease, claudication--deferred [employer] perviously due to risks of contrast nephropathy
[2018-06-15] MEDS ORDERED: MAGNESIUM SULF 50% (8.12 MEQ/2 ML-1 GM VIAL) IVPB ONE (11:45)
[2018-06-15] MEDS: METHYL SALICYLATE/MENTHOL OINT 30 GM TUBE TP SCH ×2 (12:07→22:42)
[2018-06-15] MEDS: ISOSORBIDE DINITRATE 20 MG TABLET (FP) PO SCH ×2 (13:30→17:00)
--- NOTE | 2018-06-15 13:39 | CONSULT ---
Consult Consult Specialty:: Nephrology Reason for Consultation:: CKD and hyperkalemia - History of Present Illness Chief Complaint: leg pain History of Present Illness: Pt is a 62 year old female with pmhx of uterin cancer, breast cancer, hyperkalemia, CKD, CHF, CAD, PAD, DM, HLD, and HTN who presents to the ER with leg pain. She says that it has effected her walking. She was found to have hyperkalemia. Pts wbc are markedly elevated. She denies shortness of breath but complains of lower ext edema. She denies chest pain or palpitations. She denies dysuria or hematuria. - History Source History Provided By: Patient, Medical Record - Past Medical History Cardio/Vascular: Yes: CHF, HTN, Hyperlipdemia, Pulmonary Hypertension Pulmonary: Yes: Asthma, Sleep Apnea (on BIPAP at night) Gastrointestinal: Yes: GI Bleed (see HPI), Other (had EGD and colono 12/31, ) Renal/: Yes: Renal Failure, Renal Inusuff, Other (hyperkalemia) ...LMP: 11/17/07 Endocrine: Yes: Diabetes Mellitus (uncontrolled) - Alcohol/Substance Use Hx Alcohol Use: No - Smoking History Smoking history: Never smoked Have you smoked in the past 12 months: No Aproximately how many cigarettes per day: 4 - Social History ADL: Independent History of Recent Travel: No Home Medications - Allergies Allergies/Adverse Reactions: Allergies Allergy/AdvReac Type Severity Reaction Status Date / Time No Known Allergies Allergy Verified 06/14/18 21:29 - Home Medications Home Medications: Ambulatory Orders hydrALAZINE HCL [Apresoline -] 50 mg PO BID #60 tablet 11/19/14 Alprazolam [Xanax] 0.5 mg PO HS 06/23/17 Fluticasone/Vilanterol [Breo Ellipta 100-25 Mcg INH] 1 each IH DAILY 11/28/17 Atorvastatin Ca [Lipitor] 20 mg PO HS #30 tab 03/11/18 Folic Acid 1 mg PO DAILY #30 tab 03/11/18 Albuterol 2.5/Ipratropium 0.5 [Duoneb -] 1 amp NEB RQID #120 amp 04/09/18 Neomycin/Polymyxn/Hc [Cortisporin *Otic Solution*-] 4 drop AD Q6HPO #1 drops Pramipexole Dihydrochloride [Mirapex -] 0.25 mg PO HS #30 tablet 04/09/18 Metoprolol Tartrate [Lopressor -] 50 mg PO BID 05/14/18 Furosemide [Lasix -] 40 mg PO DAILY 06/15/18 Family Disease History - Family Disease History Family History: Denies Review of Systems - Review of Systems Constitutional: reports: Malaise Eyes: reports: No Symptoms HENT: reports: No Symptoms Neck: reports: No Symptoms Cardiovascular: reports: Edema. denies: Palpitations, Shortness of Breath Respiratory: reports: SOB on Exertion Gastrointestinal: reports: No Symptoms Genitourinary: reports: No Symptoms Musculoskeletal: reports: Extremity Pain Integumentary: reports: No Symptoms Neurological: reports: No Symptoms Endocrine: reports: No Symptoms Hematology/Lymphatic: reports: No Symptoms Psychiatric: reports: No Symptoms Physical Exam Vital Signs: Vital Signs Temperature 97.7 F 06/15/18 09:23 Pulse Rate 88 06/15/18 09:23 Respiratory Rate 18 06/15/18 09:23 Blood Pressure 140/74 06/15/18 09:23 O2 Sat by Pulse Oximetry (%) 99 06/15/18 09:23 Constitutional: Yes: Calm Eyes: Yes: Conjunctiva Clear HENT: Yes: Atraumatic Neck: Yes: Supple Cardiovascular: Yes: S1, S2 Respiratory: Yes: CTA Bilaterally Gastrointestinal: Yes: Soft, Abdomen, Obese Renal/: Yes: WNL Musculoskeletal: Yes: WNL Edema: Yes Edema: LLE: 1+, RLE: 1+ Neurological: Yes: Oriented Psychiatric: Yes: Oriented Labs: CBC, BMP 06/15/18 07:45 06/15/18 07:45 Laboratory Tests 06/03/18 06/14/18 06/14/18 09:46 21:50 21:50 WBC 10.1 H 69.9 H* Potassium 5.4 H Creatinine 2.3 H 06/15/18 06/15/18 07:45 07:45 WBC 63.3 H* Potassium 5.1 Creatinine 2.2 H Imaging - Results Chest X-ray: Report Reviewed Problem List - Problems (1) Anemia Code(s): D64.9 - ANEMIA, UNSPECIFIED (2) Breast cancer Code(s): C50.919 - MALIGNANT NEOPLASM OF UNSP SITE OF UNSPECIFIED FEMALE BREAST (3) Hyperkalemia Code(s): E87.5 - HYPERKALEMIA (4) CAD (coronary artery disease) Code(s): I25.10 - ATHSCL HEART DISEASE OF [place] CORONARY ARTERY W/O ANG PCTRS Qualifiers: Coronary Disease-Associated Artery/Lesion type: [place] coronary artery Associated angina: with other forms of angina pectoris (5) CHF (congestive heart failure) Code(s): I50.9 - HEART FAILURE, UNSPECIFIED (6) CKD (chronic kidney disease) Code(s): N18.9 - CHRONIC KIDNEY DISEASE, UNSPECIFIED (7) COPD (chronic obstructive pulmonary disease) Code(s): J44.9 - CHRONIC OBSTRUCTIVE PULMONARY DISEASE, UNSPECIFIED Assessment/Plan Current Medications Generic Name Dose Route Start Last Admin Trade Name Freq PRN Reason Stop Dose Admin Acetaminophen 650 mg 06/15/18 02:01 Tylenol - PO Q6H PRN PAIN LEVEL 1-5 Albuterol/Ipratropium 1 amp 06/15/18 08:00 06/15/18 12:07 Duoneb - NEB 1 amp RQID ALDO Administration Alprazolam 0.5 mg 06/15/18 01:32 Xanax - PO HS PRN ANXIETY Atorvastatin Calcium 20 mg 06/15/18 22:00 Lipitor - PO HS ALDO Folic Acid 1 mg 06/15/18 10:00 06/15/18 09:22 Folic Acid - PO 1 mg DAILY ALDO Administration Furosemide 40 mg 06/15/18 10:00 06/15/18 09:22 Lasix - PO 40 mg DAILY ALDO Administration Hydralazine HCl 50 mg 06/15/18 10:00 06/15/18 09:22 Apresoline - PO 50 mg BID ALDO Administration Isosorbide Dinitrate 20 mg 06/15/18 11:45 Isordil - PO BIDISMO ALDO Methyl Salicylate 1 applic 06/15/18 11:45 06/15/18 12:07 Claude-Gunn - TP 1 appful BID ALDO Administration Metoprolol Succinate 50 mg 06/16/18 10:00 Toprol Xl - PO DAILY ALDO Non-Formulary Medication 1 each 06/15/18 10:00 Fluticasone/Vilanterol [Breo Ellipta 100-25 Mcg Inh] IH DAILY [facility] Oxycodone HCl 5 mg 06/15/18 02:02 Roxicodone - PO Q6H PRN PAIN LEVEL 6-10 Pramipexole Dihydrochloride 0.25 mg 06/15/18 22:00 Mirapex - PO HS ALDO Impression 1. CKD 2. anemia 3. CHF 4. HTN 5. DM 6. hyperlipidemia 7. anxiety 8. uterine cancer 9. hx GI bleed 10. COPD 11. leukocytosis 12. hyperkalemia Plan - po lasix BID - repeat labs in am - wbc elevated and can cause pseudohyperkalemia - monitor bp - oncology evaluation - last neupogen dose was on the , per pt - low potassium diet - avoid nsaids - will follow
--- NOTE | 2018-06-15 16:05 | EKG ---
Test Reason : Blood Pressure : / mmHG Vent. Rate : 082 BPM Atrial Rate : 082 BPM P-R Int : 150 ms QRS Dur : 096 ms QT Int : 458 ms P-R-T Axes : 058 004 241 degrees QTc Int : 535 ms NORMAL SINUS RHYTHM PROLONGED QT ABNORMAL ECG WHEN COMPARED WITH ECG OF 14-JUN-2018 23:35, NO SIGNIFICANT CHANGE WAS FOUND Confirmed by HARRISON FLETCHER MD ([id number]) on 06/15/2018 4:04:58 PM Referred By: RADHA Confirmed By:HARRISON FLETCHER MD
--- NOTE | 2018-06-15 17:22 | ECHO ---
Name: JOSE ROGERS Exam:Adult Echocardiogram Study Date: 06/15/2018 12:26 PM Age: 62 yrs Reason For Study: WALL MOTION Height: 66 in Weight: 176 lb BSA: 1.9 m2 MMode/2D Measurements & Calculations IVSd: 0.95 cm Ao root diam: 3.1 cm LVIDd: 6.0 cm LA dimension: 4.3 cm LVIDs: 4.4 cm LVPWd: 1.1 cm EDV(Teich): 181.9 ml TAPSE: 1.1 cm ESV(Teich): 87.2 ml RV S Jaylan: 11.0 cm/sec Doppler Measurements & Calculations MV E max jaylan: 85.9 cm/sec MR max jaylan: 413.4 cm/sec MV A max jaylan: 55.3 cm/sec MR max P.8 mmHg MV E/A: 1.6 MV dec time: 0.13 sec TR max jaylan: 314.4 cm/sec Med Peak E' Jaylna: 4.7 cm/sec TR max P.8 mmHg Med E/e': 18.4 Lat Peak E' Jaylan: 5.7 cm/sec Lat E/e': 15.2 Procedure The study was technically adequate with some images being suboptimal in quality. Left Ventricle The left ventricle is mildly dilated. There is mild concentric left ventricular hypertrophy. Left mukund tricular systolic function is borderline reduced. Ejection Fraction = 50-55%. Diastolic dysfunction, Grade II (pseudonormalization pattern). E/A 1.6 with E/E' 18 suggests elevated filling pressure. There is bord ever global hypokinesis of the left ventricle. Right Ventricle The right ventricle is normal size. RV systolic TDI is 11 cm/s c/w normal RV systolic function. Atria The left atrium is mildly dilated. Right atrial size is normal. Mitral Valve There is mild mitral annular calcification. There is mild mitral regurgitation. Tricuspid Valve The tricuspid valve is normal in structure and function. There is moderate tricuspid regurgitation. T he tricuspid regurgitant jet is eccentrically directed. Pulmonary artery systolic pressure is at least 5 9 mmhg assuming RA pressure of 15 mmHg (dilated IVC with <50% collapse). Aortic Valve The aortic valve is normal in structure and function. The aortic valve is trileaflet. The aortic valv e opens well. No aortic regurgitation is present. Pulmonic Valve The pulmonic valve is not well visualized. Trace to mild pulmonic valvular regurgitation. Great Vessels The aortic root is normal size. Pericardium/Pleura There is no pericardial effusion. Interpretation Summary The left ventricle is mildly dilated. There is mild concentric left ventricular hypertrophy. Left ventricular systolic function is borderline reduced. There is borderline global hypokinesis of the left ventricle. Ejection Fraction = 50-55%. Diastolic dysfunction, Grade II (pseudonormalization pattern). E/A 1.6 with E/E' 18 suggests elevated filling pressure RV systolic TDI is 11 cm/s c/w normal RV systolic function The left atrium is mildly dilated. Right atrial size is normal. There is mild mitral annular calcification. There is mild mitral regurgitation. There is moderate tricuspid regurgitation. The tricuspid regurgitant jet is eccentrically directed. Pulmonary artery systolic pressure is at least 59 mmhg assuming RA pressure of 15 mmHg (dilated IVC w ith <50% collapse) Trace to mild pulmonic valvular regurgitation. There is no pericardial effusion. Dmitri Echols MD 06/15/2018 05:21 PM
--- NOTE | 2018-06-15 21:12 | CONSULT ---
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 PMH sig for DM, HTN, Chol, cardiomyopathy, pulmonary hypertension and COPD. H/O Uterine CA and currently on ChemoRx for Breast CA. On Insulins, hydralazine, xanax, atorvastatin, Brio, albuterol, and metoprolol. Chronic numbness in her feet "for many years" as well as "heaviness" in both hands. For a few months she has had difficulty getting OO Chairs and must push up on the arms or other furniture. Now admitted with new pain in the left anterior thigh and increased weakness. Essentially non-ambulatory and must pull her left leg into bed using her arms. On Adm: WBC=70K. H/H=06/08. Now s/p transfusion. CK= 155, 169 IU/L NEURO: Awake, alert. Ox 3 but withdrawn and depressed. Speech fluent CN: II-XII: normal Motor: No drift. Grasps 4-/5. APB and intrinsics 4-/5 B/L Hip flexors 4/5. Knee extensors 5/5 on the right and4-/5 on the left. Ankle DF/inver/ever 4-/5 B/L. Areflexic. Plantars silent. Coord: No FTN dystaxia Sensory: Decreased vib to the mid calves and decreased pi both hands. IMP: 1. Severe, diffuse, peripheral neuropathy (DM +/- ChemoRx?). 2. Probable, B/L Carpal tunnel syndromes and ulnar neuropathies. 3. Progressive Proximal weakness in the legs with sudden worsening on the right. Normal CK mitigates against Myopathy. 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 R/O Vasculitis. SUGGEST: Check B12, ESR, CRP, EDIL, SPEP, IPEP, Quantitative immunoglobulins. Consult Dr. Lena Trevino for evaluation and for EMG/NCS and to supervise rehab. MRI of LS spine (C-). Thank you very much, Neftali Alfonso MD
[2018-06-15] MEDS ORDERED: ATORVASTATIN CA 20 MG TABLET (FP) PO SCH (22:00)
[2018-06-15] MEDS ORDERED: PRAMIPEXOLE DIHYDROCHLORIDE 0.25 MG TABLET PO SCH (22:00)
--- NOTE | 2018-06-15 23:40 | CONSULT ---
Consult - text type - Consultation Consultation Note: Patient is a 62 year old female with pmhx of uterine cancer, breast cancer, hyperkalemia, CKD, CHF, CAD, PAD, DM, HLD, and HTN who presents with left leg pain. She says that it has effected her walking. She was found to have hyperkalemia. She denies shortness of breath but complains of lower ext edema. She denies chest pain or palpitations. She denies dysuria or hematuria. She received 1 unit PRBCs - History Source History Provided By: Patient, Medical Record - Past Medical History Cardio/Vascular: Yes: CHF, HTN, Hyperlipdemia, Pulmonary Hypertension Pulmonary: Yes: Asthma, Sleep Apnea (on BIPAP at night) Gastrointestinal: Yes: GI Bleed (see HPI), Other (had EGD and colono 12/31, ) Renal/: Yes: Renal Failure, Renal Inusuff, Other (hyperkalemia) Endocrine: Yes: Diabetes Mellitus (uncontrolled) - Smoking History Smoking history: Never smoked - Social History ADL: Independent - Allergies Allergies/Adverse Reactions: Allergies Allergy/AdvReac Type Severity Reaction Status Date / Time No Known Allergies Allergy Verified 06/14/18 21:29 - Home Medications Home Medications: Ambulatory Orders hydrALAZINE HCL [Apresoline -] 50 mg PO BID #60 tablet 11/19/14 Alprazolam [Xanax] 0.5 mg PO HS 06/23/17 Fluticasone/Vilanterol [Breo Ellipta 100-25 Mcg INH] 1 each IH DAILY 11/28/17 Atorvastatin Ca [Lipitor] 20 mg PO HS #30 tab 03/11/18 Folic Acid 1 mg PO DAILY #30 tab 03/11/18 Albuterol 2.5/Ipratropium 0.5 [Duoneb -] 1 amp NEB RQID #120 amp 04/09/18 Neomycin/Polymyxn/Hc [Cortisporin *Otic Solution*-] 4 drop AD Q6HPO #1 drops Pramipexole Dihydrochloride [Mirapex -] 0.25 mg PO HS #30 tablet 04/09/18 Metoprolol Tartrate [Lopressor -] 50 mg PO BID 05/14/18 Furosemide [Lasix -] 40 mg PO DAILY 06/15/18 Active Medications Generic Name Dose Route Start Last Admin Trade Name Freq PRN Reason Stop Dose Admin Acetaminophen 650 mg 06/15/18 02:01 Tylenol - PO Q6H PRN PAIN LEVEL 1-5 Albuterol/Ipratropium 1 amp 06/15/18 08:00 06/15/18 19:54 Duoneb - NEB 1 amp RQID ALDO Administration Alprazolam 0.5 mg 06/15/18 01:32 Xanax - PO HS PRN ANXIETY Atorvastatin Calcium 20 mg 06/15/18 22:00 06/15/18 22:41 Lipitor - PO 20 mg HS ALDO Administration Folic Acid 1 mg 06/15/18 10:00 06/15/18 09:22 Folic Acid - PO 1 mg DAILY ALDO Administration Furosemide 40 mg 06/15/18 14:00 06/16/18 06:32 Lasix - PO 40 mg BID@0600,1400 ALDO Administration Hydralazine HCl 50 mg 06/15/18 10:00 06/15/18 22:41 Apresoline - PO 50 mg BID ALDO Administration Isosorbide Dinitrate 20 mg 06/15/18 11:45 06/15/18 17:00 Isordil - PO 20 mg BIDISMO ALDO Administration Methyl Salicylate 1 applic 06/15/18 11:45 06/15/18 22:42 Claude-Gunn - TP 1 appful BID ALDO Administration Metoprolol Succinate 50 mg 06/16/18 10:00 Toprol Xl - PO DAILY [facility] Non-Formulary Medication 1 each 06/15/18 10:00 Fluticasone/Vilanterol [Breo Ellipta 100-25 Mcg Inh] IH DAILY [facility] Oxycodone HCl 5 mg 06/15/18 02:02 Roxicodone - PO Q6H PRN PAIN LEVEL 6-10 Pramipexole Dihydrochloride 0.25 mg 06/15/18 22:00 06/15/18 22:41 Mirapex - PO 0.25 mg HS ALDO Administration Physical Exam Vital Signs: Vital Signs Temperature 97.7 F 06/15/18 09:23 Pulse Rate 88 06/15/18 09:23 Respiratory Rate 18 06/15/18 09:23 Blood Pressure 140/74 06/15/18 09:23 O2 Sat by Pulse Oximetry (%) 99 06/15/18 09:23 Constitutional: Yes: Calm Eyes: Yes: Conjunctiva Clear HENT: Yes: Atraumatic Neck: Yes: Supple Cardiovascular: Yes: S1, S2 Respiratory: Yes: CTA Bilaterally Gastrointestinal: Yes: Soft, Abdomen, Obese Renal/: Yes: WNL Musculoskeletal: Yes: WNL Edema: Yes Edema: LLE: 1+, RLE: 1+ Neurological: Yes: Oriented 06/15/18 06/15/18 06/16/18 07:45 07:45 05:30 WBC 63.3 H* RBC 2.94 L Hgb 8.3 L Hct 26.1 L MCV 88.9 MCHC 31.8 L RDW 18.2 H Plt Count 207 Neutrophils % 95.2 H Lymphocytes % 1.7 L Monocytes % 2.7 L D Eosinophils % 0.1 Basophils % 0.3 Sodium 140 144 Potassium 5.1 5.3 H Chloride 113 H 115 H Carbon Dioxide 19 L 21 Anion Gap 8 8 BUN 49 H 51 H Creatinine 2.2 H 2.2 H 06/16/18 05:30 WBC 48.1 H* RBC 2.83 L Hgb 8.0 L Hct 25.0 L MCV 88.2 MCHC 32.0 RDW 17.8 H Plt Count 215 Neutrophils % 94.5 H Lymphocytes % 1.7 L Monocytes % 3.1 L Eosinophils % 0.2 D Basophils % 0.5 Sodium Potassium Chloride Carbon Dioxide Anion Gap BUN Creatinine Problem List - Problems (1) Anemia Code(s): D64.9 - ANEMIA, UNSPECIFIED (2) Breast cancer Code(s): C50.919 - MALIGNANT NEOPLASM OF UNSP SITE OF UNSPECIFIED FEMALE BREAST (3) Hyperkalemia Code(s): E87.5 - HYPERKALEMIA (4) CAD (coronary artery disease) Code(s): I25.10 - ATHSCL HEART DISEASE OF [place] CORONARY ARTERY W/O ANG PCTRS Qualifiers: Coronary Disease-Associated Artery/Lesion type: [place] coronary artery Associated angina: with other forms of angina pectoris (5) CHF (congestive heart failure) Code(s): I50.9 - HEART FAILURE, UNSPECIFIED (6) CKD (chronic kidney disease) Code(s): N18.9 - CHRONIC KIDNEY DISEASE, UNSPECIFIED (7) COPD (chronic obstructive pulmonary disease) Code(s): J44.9 - CHRONIC OBSTRUCTIVE PULMONARY DISEASE, UNSPECIFIED A/P 62 y/o woman with a PMH of T2 N1 Triple Negative Breast Ca (s/p TC x4) CAD, CHF , COPD, Emphysema, HTN, HLD, CKD, PARVEZ, comes in with left sided Sharp upper thigh pain, making her unable to stand. Also complaining of weakness and sob. Recently finished course of chemotherapy. Was seen by neurology-- Severe, diffuse, peripheral neuropathy (DM +/- ChemoRx?) . Probable, B/L Carpal tunnel syndromes and ulnar neuropathies. 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 Leukocytosis due to neulasta s/p 1 unit PRBCs
[2018-06-16 01:15] VITALS: TEMP 98.6
[2018-06-16 06:41] LABS: BASO % 0.5 % (0-2.0); EOS % 0.2 % (0-4.5); LYMPH % 1.7 % (8-40); MCH 28.3 pg (25.7-33.7); MEAN CELL VOLUME 88.2 fl (80-96); MEAN PLT VOLUME 9.6 fl (7.5-11.1); MONO % 3.1 % (3.8-10.2); NEUT % 94.5 % (42.8-82.8); PLATELET COUNT 215 K/MM3 (134-434); RBC 2.83 M/mm3 (3.60-5.2); RDW 17.8 % (11.6-15.6)
[2018-06-16 06:49] LABS: WHITE BLOOD COUNT 48.1 K/mm3 (4.0-10.0)
[2018-06-16 07:00] LABS: ALBUMIN 2.7 g/dl (3.4-5.0); ANION GAP 8 (8-16); BLOOD UREA NITROGEN 51 mg/dL (7-18); CALCIUM 7.9 mg/dL (8.5-10.1); CHLORIDE 115 mmol/L (98-107); CO2 21 mmol/L (21-32); CREATININE 2.2 mg/dL (0.55-1.02); GLUCOSE,RANDOM 89 mg/dL (74-106); MAGNESIUM 1.6 mg/dL (1.8-2.4); POTASSIUM 5.3 mmol/L (3.5-5.1); SGOT/AST 21 U/L (15-37); SGPT/ALT 19 U/L (12-78); SODIUM 144 mmol/L (136-145)
[2018-06-16 08:00] LABS: ALK PHOS 170 U/L (45-117); BILIRUBIN,TOTAL 0.2 mg/dL (0.2-1.0); TOT PROT 5.8 g/dl (6.4-8.2)
[2018-06-16] MEDS: ALBUTEROL SO4 2.5/IPRATROPIUM 0.5 INH SOL 3 ML VIAL.NEB. NEB SCH (08:01)
--- NOTE | 2018-06-16 08:55 | DS ---
Physical Examination Vital Signs: Vital Signs Temperature 98.6 F 06/16/18 01:14 Pulse Rate 82 06/16/18 01:14 Respiratory Rate 18 06/16/18 01:14 Blood Pressure 146/72 06/16/18 01:14 O2 Sat by Pulse Oximetry (%) 99 06/15/18 23:00 Constitutional: Yes: Mild Distress Eyes: Yes: WNL HENT: Yes: WNL Neck: Yes: WNL Cardiovascular: Yes: Pulse Irregular Respiratory: Yes: WNL Gastrointestinal: Yes: WNL Renal/: Yes: WNL Musculoskeletal: Yes: Muscle Weakness Extremities: Yes: Other Edema: No Peripheral Pulses WNL: Yes Integumentary: Yes: Pressure Ulcer (HEALED RIGHT TOE) Wound/Incision: Yes: Open to air Neurological: Yes: Numbness, Paresthesia, Pre-Existing Deficit, Tingling ...Motor Strength: LLE Psychiatric: Yes: WNL Labs: CBC, BMP 06/16/18 05:30 06/16/18 05:30 Discharge Summary Reason For Visit: CHRONIC KIDNEY DISEASE, CHRONIC HYPERKALEMIA, Current Active Problems Anemia (Acute) Breast cancer (Acute) Controlled type 2 diabetes mellitus with diabetic peripheral angiopathy without gangrene (Acute) Hyperkalemia (Acute) Leukocytosis (Acute) Weakness (Acute) Procedures: Principal: VASCULAR STUDY Hospital Course: ADMITTED FOR NUMBNESS LEG WEAKNESS, NEUROLOGY WORKUP OUTPATIENT MULTIFACTORIAL CAN F/U OUTPATIENT FOR NEURO/PHYSIATRY FOLLOW UP. Condition: Fair - Instructions Diet, Activity, Other Instructions: SEE DR BOND AND KASHMIR OUTPATIENT Referrals: Anyi Mcgrath MD [Primary Care Provider] - Disposition: VNS/HOME HEALTH CARE - Home Medications Comprehensive Discharge Medication List: Ambulatory Orders hydrALAZINE HCL [Apresoline -] 50 mg PO BID #60 tablet 11/19/14 Alprazolam [Xanax] 0.5 mg PO HS 06/23/17 Fluticasone/Vilanterol [Breo Ellipta 100-25 Mcg INH] 1 each IH DAILY 11/28/17 Atorvastatin Ca [Lipitor] 20 mg PO HS #30 tab 03/11/18 Folic Acid 1 mg PO DAILY #30 tab 03/11/18 Albuterol 2.5/Ipratropium 0.5 [Duoneb -] 1 amp NEB RQID #120 amp 04/09/18 Neomycin/Polymyxn/Hc [Cortisporin *Otic Solution*-] 4 drop AD Q6HPO #1 drops Pramipexole Dihydrochloride [Mirapex -] 0.25 mg PO HS #30 tablet 04/09/18 Metoprolol Tartrate [Lopressor -] 50 mg PO BID 05/14/18 Furosemide [Lasix -] 40 mg PO DAILY 06/15/18
[2018-06-16] MEDS: hydrALAZINE HCL 50 MG TABLET (FP) PO SCH (09:03)
[2018-06-16] MEDS: FOLIC ACID 1 MG TABLET (FP) PO SCH (09:03)
[2018-06-16] MEDS ORDERED: PT OWN MED DRAWER 7, Y5N ONE (09:05)
[2018-06-16] MEDS: METHYL SALICYLATE/MENTHOL OINT 30 GM TUBE TP SCH (09:07)
[2018-06-16] MEDS: ISOSORBIDE DINITRATE 20 MG TABLET (FP) PO SCH (09:07)
[2018-06-16 09:26] VITALS: BP 162/84; PULSE 88
[2018-06-16 10:15] LABS: ANISOCYTOSIS 2+; MACROCYTOSIS 0; PLATELET ESTIMATE NORMAL
--- NOTE | 2018-06-16 12:00 | PN ---
Progress Note (short form) - Note Progress Note: PAtient discharged andrés mathis Discussed with Dr. garnica
[2018-06-17 06:06] LABS: SERUM IRON SATURATION 30 % (15-55); TOTAL IRON BINDING CAPACITY 149 ug/dL (250-450); UIBC 105 ug/dL (118-369)
[2018-06-17 08:07] LABS: IGA IMMUNOGLOBULIN 325 mg/dL (87-352); IGM IMMUNOGLOBULIN 37 mg/dL (26-217)
== END 2018-06-16 09:59 | disposition home health service (06) | DRG 74 ==
LOC: JER 21:15 → JERBED 23:24 → J4W 06-15 18:02
PROVIDERS: ADMIT Internal Medicine; ATTEND Family Medicine
PROC: 30233N1 Transfusion of Nonautologous Red Blood Cells into Peripheral Vein, Percutaneous Approach (ICD-10-PCS; principal; 2018-06-14)
DX: E11.40 Type 2 diabetes mellitus with diabetic neuropathy, unspecified (principal); I42.8 Other cardiomyopathies; I13.0 Hypertensive heart and chronic kidney disease with heart failure and stage 1 through stage 4 chronic kidney disease, or unspecified chronic kidney disease; I50.22 Chronic systolic (congestive) heart failure; E11.44 Type 2 diabetes mellitus with diabetic amyotrophy; D64.9 Anemia, unspecified; I25.10 Atherosclerotic heart disease of native coronary artery without angina pectoris; E11.51 Type 2 diabetes mellitus with diabetic peripheral angiopathy without gangrene; E78.5 Hyperlipidemia, unspecified; E87.5 Hyperkalemia; G47.33 Obstructive sleep apnea (adult) (pediatric); I50.9 Heart failure, unspecified; N18.9 Chronic kidney disease, unspecified; E11.22 Type 2 diabetes mellitus with diabetic chronic kidney disease; Z87.891 Personal history of nicotine dependence; J43.9 Emphysema, unspecified; C50.911 Malignant neoplasm of unspecified site of right female breast; C55 Malignant neoplasm of uterus, part unspecified; I45.81 Long QT syndrome; F41.9 Anxiety disorder, unspecified; Z79.4 Long term (current) use of insulin; G56.03 Carpal tunnel syndrome, bilateral upper limbs; G57.22 Lesion of femoral nerve, left lower limb
CPT/HCPCS: 36415; 36430; 71046-TC-FY; 73552-TC-LT-FY; 80048; 80053; 82550; 82553; 82607; 82728; 82746; 82784; 83540; 83550; 83735; 84100; 84155; 84165; 84484; 85025; 85610; 85651; 85730; 86038; 86140; 86431; 86922; 93005; 93010; 93306-TC; 93971-TC; 94640; 99285-25; J7620

== ENCOUNTER 2018-07-11 13:34 | Emergency (ER) | payer OTHER ==
[2018-07-11 13:41] VITALS: TEMP 97.8; BMI 29.9
--- NOTE | 2018-07-11 15:37 | PDOC ---
History of Present Illness - General Chief Complaint: Blood Transfusion Stated Complaint: PCP SENT Time Seen by Provider: 07/11/18 14:03 History Source: Patient Exam Limitations: No Limitations - History of Present Illness Initial Comments: 07/11/18 15:00 62-year-old female sent in by Dr. Mcgrath for transfusion. Patient is currently under the care of Dr. Michael Beth for breast cancer receiving chemotherapy. Patient also complaining of mild fatigue and shortness of breath with exertion. Patient denies chest pain, palpitations, dizziness or abdominal pain or nausea. Timing/Duration: intermittent Severity: mild Associated Symptoms: reports: shortness of breath, weakness Past History - Travel Traveled outside of the country in the last 30 days: No - Past Medical History Allergies/Adverse Reactions: Allergies Allergy/AdvReac Type Severity Reaction Status Date / Time No Known Allergies Allergy Verified 07/11/18 13:41 Home Medications: Ambulatory Orders hydrALAZINE HCL [Apresoline -] 50 mg PO BID #60 tablet 11/19/14 Alprazolam [Xanax] 0.5 mg PO HS 06/23/17 Fluticasone/Vilanterol [Breo Ellipta 100-25 Mcg INH] 1 each IH DAILY 11/28/17 Atorvastatin Ca [Lipitor] 20 mg PO HS #30 tab 03/11/18 Folic Acid 1 mg PO DAILY #30 tab 03/11/18 Neomycin/Polymyxn/Hc [Cortisporin *Otic Solution*-] 4 drop AD Q6HPO #1 drops Pramipexole Dihydrochloride [Mirapex -] 0.25 mg PO HS #30 tablet 04/09/18 Metoprolol Tartrate [Lopressor -] 50 mg PO BID 05/14/18 Furosemide [Lasix -] 40 mg PO DAILY 06/15/18 Albuterol 2.5/Ipratropium 0.5 [Duoneb -] 1 amp NEB RQID PRN 07/11/18 Anemia: Yes Asthma: Yes Cancer: Yes (Uterine Ca - 2007,rt breast ca,) Cardiac Disorders: Yes (Systolic cardiomyopathy, CAD, PAD) CVA: No COPD: No CHF: Yes Dementia: No Diabetes: Yes GI Disorders: Yes (Colon polyps) Disorders: Yes HTN: Yes Hypercholesterolemia: Yes Kidney Stones: Yes (CKD) Liver Disease: No Seizures: No Thyroid Disease: No - Surgical History Abdominal Surgery: No Appendectomy: No Cardiac Surgery: No Cholecystectomy: No Lung Surgery: No Neurologic Surgery: No Orthopedic Surgery: No - Family Disease History Family Disease History: Other: Father (kidney disease), Brother (kidney disease) - Immunization History Immunization Up to Date: Yes - Suicide/Smoking/Psychosocial Hx Smoking Status: Yes Smoking History: Current every day smoker Years of Tobacco Use: 31 Have you smoked in the past 12 months: Yes Number of Cigarettes Smoked Daily: 4 Information on smoking cessation initiated: Yes 'Breaking Loose' booklet given: 07/11/18 Hx Alcohol Use: No Drug/Substance Use Hx: No Substance Use Type: None Hx Substance Use Treatment: No Patient Lives Alone: No Review of Systems - Review of Systems Able to Perform ROS?: No Constitutional: Yes: Weakness HEENTM: No: Symptoms Reported Respiratory: Yes: Shortness of Breath Cardiac (ROS): No: Symptoms Reported ABD/GI: No: Symptoms Reported : No: Symptoms Reported Musculoskeletal: No: Symptoms Reported Integumentary: No: Symptoms Reported Neurological: No: Symptoms reported Endocrine: No: Symptoms Reported Hematologic/Lymphatic: No: Symptoms Reported *Physical Exam - Vital Signs Last Vital Signs Temp Pulse Resp BP Pulse Ox 97.8 F 81 16 143/67 98 07/11/18 13:38 07/11/18 13:38 07/11/18 13:38 07/11/18 13:38 07/11/18 13:38 - Physical Exam General Appearance: Yes: Nourished, Appropriately Dressed. No: Apparent Distress HEENT: positive: Pale Conjunctivae Neck: positive: Normal Thyroid, Supple Respiratory/Chest: positive: Lungs Clear, Normal Breath Sounds. negative: Respiratory Distress, Accessory Muscle Use Cardiovascular: positive: Regular Rhythm, Regular Rate. negative: Murmur Extremity: positive: Normal Capillary Refill. negative: Pedal Edema Integumentary: positive: Dry, Warm, Pale Neurologic: positive: Motor Strength 5/5 (ambulatory with walker) ED Treatment Course - LABORATORY CBC & Chemistry Diagram: 07/11/18 15:50 07/11/18 16:45 Medical Decision Making - Medical Decision Making 07/11/18 15:49 Patient sent in by PCP for evaluation of low H&H likely needing a transfusion. Patient also complaining of mild fatigue and shortness of breath with distant ambulation. Patient exam with normal vital signs but pale on exam. Patient ordered for labs, IV type and screen 07/11/18 17:36 Laboratory Tests 06/16/18 07/01/18 07/11/18 05:30 10:58 16:45 Sodium 145 Potassium 4.6 Chloride 115 H 113 H 114 H Carbon Dioxide 21 Anion Gap 10 BUN 65 H Creatinine 2.2 H 2.3 H 2.2 H Random Glucose 109 H Calcium 8.5 Magnesium 1.6 L Total Bilirubin 0.4 AST 17 ALT 27 Alkaline Phosphatase 170 H 137 H D 132 H Total Protein 7.0 Albumin 3.1 L 07/11/18 17:36 Laboratory Tests 06/15/18 06/16/18 07/01/18 07:45 05:30 10:58 WBC Hgb 8.3 L 8.0 L 8.3 L Hct 25.0 L 25.7 L 07/11/18 15:50 WBC 8.1 Hgb 8.1 L Hct 25.1 L Patient is ambulatory here. Patient will be given 2 g of magnesium and discharge her as per her request and she does not want to stay . Case discussed with Dr. Cutler was covering for Dr. Mcgrath and agrees with discharge if patient is requesting *DC/Admit/Observation/Transfer Diagnosis at time of Disposition: Weakness, Hypomagnesemia - Discharge Dispostion Disposition: HOME Condition at time of disposition: Improved - Referrals Referrals: Michael Beth MD [Staff Physician] - Anyi Mcgrath MD [Staff Physician] - - Patient Instructions Printed Discharge Instructions: Eating a Diet Rich in Fruits and Vegetables Additional Instructions: Your magnesium level was low today and I have enclosed information on fruits and vegetables which are rich in magnesium. Please also follow up with your oncologist and your primary care physician. - Post Discharge Activity
[2018-07-11 15:57] LABS: BASO % 1.1 % (0-2.0); EOS % 3.4 % (0-4.5); HEMATOCRIT 25.1 % (32.4-45.2); HEMOGLOBIN 8.1 GM/dL (10.7-15.3); LYMPH % 11.2 % (8-40); MCH 30.1 pg (25.7-33.7); MCHC 32.3 g/dl (32.0-36.0); MEAN CELL VOLUME 93.2 fl (80-96); MEAN PLT VOLUME 8.5 fl (7.5-11.1); MONO % 11.1 % (3.8-10.2); NEUT % 73.2 % (42.8-82.8); PLATELET COUNT 269 K/MM3 (134-434); RBC 2.69 M/mm3 (3.60-5.2); RDW 20.7 % (11.6-15.6); WHITE BLOOD COUNT 8.1 K/mm3 (4.0-10.0)
[2018-07-11] MEDS ORDERED: LOPERAMIDE HCL 2 MG CAPSULE PO ONE (16:24)
[2018-07-11] MEDS ORDERED: LOPERAMIDE HCL 2 MG CAPSULE ONE (16:42)
--- NOTE | 2018-07-11 16:47 | PDOC ---
*Physical Exam - Vital Signs Last Vital Signs Temp Pulse Resp BP Pulse Ox 97.8 F 81 16 143/67 98 07/11/18 13:38 07/11/18 13:38 07/11/18 13:38 07/11/18 13:38 07/11/18 13:38 - Physical Exam General Appearance: Yes: Nourished Respiratory/Chest: positive: Lungs Clear, Normal Breath Sounds Cardiovascular: positive: Regular Rhythm, Regular Rate, S1, S2 Gastrointestinal/Abdominal: positive: Normal Bowel Sounds, Flat, Soft. negative : Tender Extremity: positive: Normal Capillary Refill Integumentary: positive: Normal Color, Dry, Warm Neurologic: positive: Fully Oriented, Alert, Normal Mood/Affect ED Treatment Course - LABORATORY CBC & Chemistry Diagram: 07/11/18 15:50 07/11/18 15:50 - ADDITIONAL ORDERS Additional order review: Laboratory Results 07/11/18 07/11/18 15:50 15:50 Sodium Cancelled Potassium Cancelled Chloride Cancelled Carbon Dioxide Cancelled Anion Gap Cancelled BUN Cancelled Creatinine Cancelled Creat Clearance w eGFR Cancelled Random Glucose Cancelled Calcium Cancelled Total Bilirubin Cancelled AST Cancelled ALT Cancelled Alkaline Phosphatase Cancelled Total Protein Cancelled Albumin Cancelled Anti-A Titer Cancelled Blood Type Cancelled Antibody Screen Cancelled 07/11/18 15:50 RBC 2.69 L MCV 93.2 MCHC 32.3 RDW 20.7 H MPV 8.5 Neutrophils % 73.2 Lymphocytes % 11.2 D Monocytes % 11.1 H Eosinophils % 3.4 Basophils % 1.1 Medical Decision Making - Medical Decision Making 07/11/18 16:45 62 yo F with h/o breast ca here with c/o fatigue, exertional sob and not feeling well. was called by dr. vegas told to come to ed for transfusion. has had multiple transfusions in the past. no f/c no cough. no mod factor.s on exam awake alert lungs clear bilaterally heart rrr no mrg. abd soft nt nd. differential sob from anemia, electrolyte abnormality, se of chemo, plan cbc lytes reassess. will d/w dr. vegas. pt seen and examined in conjunction [facility] [employer] [place], agree with plan.
[2018-07-11 16:53] LABS: ANISOCYTOSIS 2+; MACROCYTOSIS 1+; PLATELET ESTIMATE ADEQUATE
[2018-07-11 17:21] LABS: ALBUMIN 3.1 g/dl (3.4-5.0); ALK PHOS 132 U/L (45-117); ANION GAP 10 MMOL/L (8-16); BILIRUBIN,TOTAL 0.4 mg/dL (0.2-1.0); BLOOD UREA NITROGEN 65 mg/dL (7-18); CALCIUM 8.5 mg/dL (8.5-10.1); CHLORIDE 114 mmol/L (98-107); CO2 21 mmol/L (21-32); CREATININE 2.2 mg/dL (0.55-1.02); GLUCOSE,RANDOM 109 mg/dL (74-106); MAGNESIUM 1.6 mg/dL (1.8-2.4); POTASSIUM 4.6 mmol/L (3.5-5.1); SGOT/AST 17 U/L (15-37); SGPT/ALT 27 U/L (12-78); SODIUM 145 mmol/L (136-145)
[2018-07-11] MEDS ORDERED: MAGNESIUM SULF 50% (8.12 MEQ/2 ML-1 GM VIAL) IVPB ONE (17:35)
[2018-07-11] MEDS ORDERED: MAGNESIUM SULF 50% (8.12 MEQ/2 ML-1 GM VIAL) ONE (18:00)
[2018-07-11 19:41] VITALS: BP 134/71; PULSE 81
== END 2018-07-11 19:42 | disposition home or self-care (01) ==
LOC: JER 13:34
PROC: 3E033GC Introduction of Other Therapeutic Substance into Peripheral Vein, Percutaneous Approach (ICD-10-PCS; principal; 2018-07-11)
DX: R53.1 Weakness (principal); E83.42 Hypomagnesemia; C50.919 Malignant neoplasm of unspecified site of unspecified female breast; D64.9 Anemia, unspecified; I25.10 Atherosclerotic heart disease of native coronary artery without angina pectoris; I11.0 Hypertensive heart disease with heart failure; I43 Cardiomyopathy in diseases classified elsewhere; I12.9 Hypertensive chronic kidney disease with stage 1 through stage 4 chronic kidney disease, or unspecified chronic kidney disease; F17.210 Nicotine dependence, cigarettes, uncomplicated; N18.9 Chronic kidney disease, unspecified
CPT/HCPCS: 36415; 80053; 83735; 85025; 86850; 86900; 86901; 96374; 99283-25

== ENCOUNTER 2019-06-04 18:04 | Emergency (ER) | payer OTHER ==
--- NOTE | 2019-06-04 18:15 | PDOC ---
Rapid Medical Evaluation Time Seen by Provider: 06/04/19 18:12 Medical Evaluation: Allergies Allergy/AdvReac Type Severity Reaction Status Date / Time No Known Allergies Allergy Verified 06/04/19 18:12 06/04/19 18:13 I have performed a brief in-person evaluation of this patient. The patient presents with a chief complaint of: Sent from clinic for "dehydration" on labs today. C/o n/v x days. No abd pain, diarrhea, f/c. H/o DM , HTN, R breast ca (s/p lumpectomy remotely, s/p chemo/xrt 12/05), COPD not on oxygen Pertinent physical exam findings:stable and well javier I have ordered the following:labs The patient will proceed to the ED for further evaluation. Discharge Disposition - Diagnosis Weakness - Referrals - Patient Instructions - Post Discharge Activity
[2019-06-04 18:16] VITALS: BP 164/81; PULSE 78; TEMP 98.3; BMI 30.9
--- NOTE | 2019-06-04 19:31 | PDOC ---
History of Present Illness - General Chief Complaint: Abnormal Lab Results (Outside) Stated Complaint: SENT BY PCP/LABS Time Seen by Provider: 06/04/19 18:12 History Source: Patient Exam Limitations: No Limitations - History of Present Illness Initial Comments: Merary Yu is a 63 yo F w a pmh sig for R BrCA s/p R breast lumpectomy 2016, CAD, Systolic cardiomyopathy, CHF, HTN, HLD, NIDDM, PAD, anemia, COPD (emphysema ), PARVEZ, colon polyps, and uterine CA 2006 who presents to the [facility] ER via private auto sent in by Dr. Frost bc she had abnormal lab results with an elevated potassium of 5.5 earlier today and was dehydrated. The patient had a regular appointment with Dr. Farr this morning at 10:[address] Frost at 11:15. She called Dr. Farr to cancel her appointment today bc she has been feeling nauseous for the past week and vomited around 4 times over the course of the past week. Her vomitus was NBNB. Dr. Farr requested that she have labs taken today at [facility]. She then received a phone call at [address] Frost stating she should goto the nearest ER bc her potassium was elevated at 5.5 and she was dehydrated based on her labs from earlier today. The patient states that she knows her potassium is elevated because she is supposed to take a powder to lower her potassium but decided not to take it yesterday and today because she doesn't like the way it tastes. She also said that yesterday and today she has been eating a spanich dish called [employer] which has a large amount of bananas in it and she believes her potassium is high bc she ate this food dish and did not take her powder medication to lower he potassium. She denies recent fevers, chills, weakness, chest pain, SOB, difficulty breathing, dysuria, frequency, urgency, headache, blurry vision, unsteady gait, neck pain, back pain, abdominal pain, ankle/leg swelling, numbness, or tingling. PCP: Dr. Ramila Sandra: Dr. Frost Renal: Dr. Farr Cardio: Dr. Naqvi GI: Dr. Feliz PSH: R breast lumpectomy 2016 Social Hx: Smokes 0.5PPD x 45 years, Denies current alcohol, or illicit drug usage. Allergies: Seafood, NKDA Past History - Past Medical History Allergies/Adverse Reactions: Allergies Allergy/AdvReac Type Severity Reaction Status Date / Time No Known Allergies Allergy Verified 06/04/19 18:12 Home Medications: Ambulatory Orders hydrALAZINE HCL [Apresoline -] 50 mg PO BID #60 tablet 11/19/14 Alprazolam [Xanax] 0.5 mg PO HS 06/23/17 Fluticasone/Vilanterol [Breo Ellipta 100-25 Mcg INH] 1 each IH DAILY 11/28/17 Atorvastatin Ca [Lipitor] 20 mg PO HS #30 tab 03/11/18 Folic Acid 1 mg PO DAILY #30 tab 03/11/18 Neomycin/Polymyxn/Hc [Cortisporin *Otic Solution*-] 4 drop AD Q6HPO #1 drops Pramipexole Dihydrochloride [Mirapex -] 0.25 mg PO HS #30 tablet 04/09/18 Metoprolol Tartrate [Lopressor -] 50 mg PO BID 05/14/18 Furosemide [Lasix -] 40 mg PO DAILY 06/15/18 Albuterol 2.5/Ipratropium 0.5 [Duoneb -] 1 amp NEB RQID PRN 07/11/18 Anemia: Yes Asthma: Yes Cancer: Yes (Uterine Ca - 2007,rt breast ca,) Cardiac Disorders: Yes (Systolic cardiomyopathy, CAD, PAD) CVA: No COPD: No CHF: Yes Dementia: No Diabetes: Yes GI Disorders: Yes (Colon polyps) Disorders: Yes HTN: Yes Hypercholesterolemia: Yes Kidney Stones: Yes (CKD) Liver Disease: No Seizures: No Thyroid Disease: No - Surgical History Abdominal Surgery: No Appendectomy: No Cardiac Surgery: No Cholecystectomy: No Lung Surgery: No Neurologic Surgery: No Orthopedic Surgery: No - Family Disease History Family Disease History: Other: Father (kidney disease), Brother (kidney disease) - Immunization History Immunization Up to Date: Yes - Suicide/Smoking/Psychosocial Hx Smoking Status: Yes Smoking History: Current every day smoker Years of Tobacco Use: 31 Have you smoked in the past 12 months: Yes Number of Cigarettes Smoked Daily: 10 Information on smoking cessation initiated: No 'Breaking Loose' booklet given: 07/11/18 Hx Alcohol Use: No Drug/Substance Use Hx: No Substance Use Type: None Hx Substance Use Treatment: No Review of Systems - Review of Systems Able to Perform ROS?: Yes Comments:: CONSTITUTIONAL: Absent: fever, chills, diaphoresis, generalized weakness, malaise, loss of appetite HEENT: Absent: rhinorrhea, nasal congestion, throat pain, throat swelling, difficulty swallowing, mouth swelling, ear pain, eye pain, visual Changes CARDIOVASCULAR: Present: Peripheral edema Absent: chest pain, syncope, palpitations, irregular heart rate, lightheadedness RESPIRATORY: Absent: cough, shortness of breath, dyspnea with exertion, orthopnea, wheezing, stridor, hemoptysis GASTROINTESTINAL: Present: nausea, vomiting Absent: abdominal pain, abdominal distension, diarrhea, constipation, melena, hematochezia GENITOURINARY: Absent: dysuria, frequency, urgency, hesitancy, hematuria, flank pain, genital pain MUSCULOSKELETAL: Absent: myalgia, arthralgia, joint swelling SKIN: Present: rash Absent: itching, pallor HEMATOLOGIC/IMMUNOLOGIC: Absent: easy bleeding, easy bruising, lymphadenopathy, frequent infections ENDOCRINE: Absent: unexplained weight gain, unexplained weight loss, heat intolerance, cold intolerance NEUROLOGIC: Absent: headache, focal weakness or paresthesias, dizziness, unsteady gait, seizure, mental status changes, bladder or bowel incontinence PSYCHIATRIC: Absent: anxiety, depression, suicidal or homicidal ideation, hallucinations. *Physical Exam - Vital Signs Last Vital Signs Temp Pulse Resp BP Pulse Ox 98.3 F 78 18 164/81 100 06/04/19 18:14 06/04/19 18:14 06/04/19 18:14 06/04/19 18:14 06/04/19 18:14 - Physical Exam Comments: GENERAL: Well developed, well nourished. Awake and alert. No acute distress. HEENT: Normocephalic, atraumatic. PERRLA, EOMI. Sclera are non-icteric. Moist mucous membranes. Oropharynx is clear. NECK: Supple. Full ROM. No JVD. No lymphadenopathy. CARDIOVASCULAR: Regular rate and rhythm. No murmurs, rubs, or gallops. Distal pulses are 2+ and symmetric. PULMONARY: No evidence of respiratory distress. Lungs clear to auscultation bilaterally. No wheezing, rales or rhonchi. ABDOMINAL: Soft. Non-tender. Non-distended. No rebound or guarding. No organomegaly. Normoactive bowel sounds. MUSCULOSKELETAL Normal range of motion at all joints. No bony deformities or tenderness. No CVA tenderness. EXTREMITIES: No cyanosis. No clubbing. No edema. No calf tenderness. SKIN: The left forearm has a pruritic rash. Warm and dry. Normal capillary refill. No jaundice. NEUROLOGICAL: Alert, awake, appropriate. Cranial nerves 2-12 intact. No deficits to light touch in face, upper extremities and lower extremities. No motor deficits in the in face, upper extremities and lower extremities. Normal speech. Gait is normal without ataxia. PSYCHIATRIC: Cooperative. Good eye contact. Appropriate mood and affect. Heart Score/ECG Review - ECG Intrepretation Rhythm: Regular Rhythm - [place]: Normal - P and CT Prominent R with upright T in V1 (true posterior IA): No Delta Wave(s) Present: No WPW: No - QRS Poor R Wave Progression: No Q Wave Present: No - ST and T Early Repolarization: No Non Specific ST-T Wave changes: No Flattened T Waves: Yes Prolonged Q-T Interval: Yes - ECG Impressions Normal ECG: No Non-specific ST Elevation: No Ischemic Changes: No (TWI aVL) Bradycardia: No Torsades will Pointes: No WPW: No ED Treatment Course - LABORATORY CBC & Chemistry Diagram: 06/04/19 20:27 06/04/19 20:27 Medical Decision Making - Medical Decision Making Merary Yu is a 63 yo F w a pmh sig for R BrCA s/p R breast lumpectomy 2017, CAD, Systolic cardiomyopathy, CHF, HTN, HLD, PAD, anemia, COPD (emphysema), PARVEZ , colon polyps, and uterine CA 2006 who presents to the [facility] ER via private auto sent in by Dr. Frost bc she had abnormal lab results with an elevated potassium of 5.5 earlier today and was dehydrated. The patient had a regular appointment with Dr. Farr this morning at 10:[address] Frost at 11:15. She called Dr. Farr to cancel her appointment today bc she has been feeling nauseous for the past week and vomited around 4 times over the course of the past week. Her vomitus was NBNB. Dr. Farr requested that she have labs taken today at [facility]. She then received a phone call at [address] Frost stating she should goto the nearest ER bc her potassium was elevated at 5.5 and she was dehydrated based on her labs from earlier today. The patient states that she knows her potassium is elevated because she is supposed to take a powder to lower her potassium but decided not to take it yesterday and today because she doesn't like the way it tastes. She also said that yesterday and today she has been eating a spanich dish called [employer] which has a large amount of bananas in it and she believes her potassium is high bc she ate this food dish and did not take her powder medication to lower he potassium. Vital Signs Temp Pulse Resp BP Pulse Ox 98.3 F 78 18 164/81 100 06/04/19 18:14 06/04/19 18:14 06/04/19 18:14 06/04/19 18:14 06/04/19 18:14 DDx IBNLT: Dehydration, electrolyte/metabolic disturbance, gastroenteritis, ACS/ IA, Arrhythmia Plan: Labs, EKG, IV hydration, re-assess. Labs: Anemic, elevated BUN/Cr. Potassium is now 5.2 which is better than the 5.5 from earlier today. Troponin negative. EKG: NS rate of 71, regular rhythm w narrow complexes, normal axis, minimal LVH criteria, no ST elevation or depression, TWI in aVL, CT - 156, QYc - prolonged at 506, no peaked T waves. Re-assessment: Patient is eating and drinking in the ED without complaints. She requests to be discharged and states she will make sure she is good about taking all of her meds. She has no active complaints at the present time. Disposition: Home with PCP fu. *DC/Admit/Observation/Transfer Diagnosis at time of Disposition: Weakness, Hyperkalemia CKD (chronic kidney disease) Qualifiers: Chronic kidney disease stage: unspecified stage Qualified Code(s): N18.9 - Chronic kidney disease, unspecified Anemia Qualifiers: Anemia type: due to chronic kidney disease Chronic kidney disease stage: unspecified stage Qualified Code(s): N18.9 - Chronic kidney disease, unspecified - Discharge Dispostion Disposition: HOME Condition at time of disposition: Improved Decision to Admit order: No - Referrals Referrals: Anyi Mcgrath MD [Primary Care Provider] - - Patient Instructions Printed Discharge Instructions: DI for Hyperkalemia Additional Instructions: You came into the Er because you were dehydrated and had a higher than normal potassium level at 5.5. Here in the ER we looked at your blood and found that your potassium went down to 5.2 which is better than this morning. Your labs also showed that you are anemic and have chronic kidney disease. Please make sure to follow up with your primary care doctor regarding these results in the next 3 to 5 days. Come back to the Er immediately if your pain worsens, you feel nauseous or have any other new or worsening concerns. Thank you for coming to the [facility] ER. We hope you feel better soon! Print Language: INDIAN - Post Discharge Activity
[2019-06-04] MEDS ORDERED: SODIUM CHLORIDE 0.9% 500 ML INFUS.BAG IV ONE (20:03)
--- NOTE | 2019-06-04 20:31 | PDOC ---
Documentation entered by Chino Henderson SCRIBE, acting as scribe for Quincy Eden MD. Quincy Eden MD: This documentation has been prepared by the Beatriz waggoner Elijah, SCRIBE, under my direction and personally reviewed by me in its entirety. I confirm that the documentation accurately reflects all work, treatment, procedures, and medical decision making performed by me. Attending Attestation - Resident Resident Name: Rashel Carver - ED Attending Attestation I have performed the following: I have examined & evaluated the patient, The case was reviewed & discussed with the resident, I agree w/resident's findings & plan - HPI HPI: 06/04/19 20:30 Patient is a 63 year year old female with a significant past medical history of R Breast CA (R breast lumpectomy 2016), CAD, Systolic cardiomyopathy, CHF, HTN, HLD, PAD, anemia, COPD (emphysema), PARVEZ, colon polyps, and uterine CA (2006) who presents to the ED from Dr. Tellez office with an elevated potassium level and was said to be dehydrated. Patient notes experiencing a few days of nausea, NBNB vomiting and cancelled one of her appointments with Dr. Farr. Patient was seen at Dr. Tellez today where labs were done and the patient was sent to the ED after she was told the results. Patient reports no symptoms at this time. Denies Abdominal Pain, Chest Pain, fever, chills Allergies: NKA Social History: Tobacco User (x10 Cigarettes daily) PCP: Dr. Mcgrath Automotive Finance Manager: Dr. Frost Renal: Dr. Farr Cardio: Dr. Naqvi GI: Dr. Feliz - Physicial Exam PE: 06/04/19 20:30 GENERAL: Awake, alert, and fully oriented, in no acute distress HEAD: No signs of trauma ENT: Hearing grossly normal. NECK: Normal ROM. Supple. LUNGS: Breath sounds equal, clear to auscultation bilaterally. No wheezes, and no crackles HEART: Regular rate and rhythm, normal S1 and S2, no murmurs, rubs or gallops ABDOMEN: Soft, nontender. No guarding, no rebound. EXTREMITIES: Normal range of motion, no edema. No clubbing or cyanosis. No cords, erythema, or tenderness NEUROLOGICAL: Cranial nerves II through XII grossly intact. Normal speech. SKIN: Warm, Dry. No rashes or lesions noted. - Medical Decision Making 06/04/19 20:32 A portion of this note was documented by scribe services under my direction. I have reviewed the details of the note, within reason, and agree with the documentation with the following case summary and management plan written by me. Patient treated in the ED. Nursing notes are reviewed and incorporated into the medical decision-making. Vital signs reviewed. Peripheral IV access obtained by the nurse, laboratory studies are drawn and sent, reviewed and interpreted by myself. Vital Signs Temp Pulse Resp BP Pulse Ox 98.3 F 78 18 164/81 100 06/04/19 18:14 06/04/19 18:14 06/04/19 18:14 06/04/19 18:14 06/04/19 18:14 63-year-old female with multiple medical problems presents for abnormal labs. The patient reported that she was intermittent in the nauseous throughout the week but no vomiting. Denies chest pain or shortness of breath. She reported some indigestion which she reports having a history of gastritis. She currently denies of symptoms at this moment. She did have 2 outpatient routine follow-up with her supply teacher and scabbler. She had canceled her appointment with a supply teacher but kept her appointment with her pulmonologyist, Dr. Frost. At that time, the patient has had blood work performed. The blood work returned and her doctor called stating she had a potassium 5.5 and a BUN is 70. Stated that she should be evaluated in the emergency department and for IV hydration. Patient the ED currently has no complaints. We'll repeat blood work and give IV hydration reassess. We'll also obtain an EKG and a troponin. Obtain lipase. I have low suspicion for cardiac etiology but given her medical problems, we'll check. If workup is negative, the patient reports feeling well, we'll discharge with outpatient follow-up. 06/04/19 21:36 CBC, BMP 06/04/19 20:27 06/04/19 20:27 CMP Sodium 142 mmol/L (136-145) 06/04/19 20:27 Potassium 5.2 mmol/L (3.5-5.1) H 06/04/19 20:27 Chloride 115 mmol/L (98-107) H 06/04/19 20:27 Carbon Dioxide 21 mmol/L (21-32) 06/04/19 20:27 Anion Gap 6 MMOL/L (8-16) L 06/04/19 20:27 BUN 90.7 mg/dL (7-18) H 06/04/19 20:27 Creatinine 3.2 mg/dL (0.55-1.3) H 06/04/19 20:27 Est GFR (CKD-EPI)AfAm 17.02 06/04/19 20:27 Est GFR (CKD-EPI)NonAf 14.68 06/04/19 20:27 Random Glucose 128 mg/dL (74-106) H 06/04/19 20:27 Calcium 8.3 mg/dL (8.5-10.1) L 06/04/19 20:27 Total Bilirubin 0.4 mg/dL (0.2-1) 06/04/19 20:27 AST 21 U/L (15-37) 06/04/19 20:27 ALT 31 U/L (13-61) 06/04/19 20:27 Alkaline Phosphatase 175 U/L (45-117) H 06/04/19 20:27 Troponin I 0.04 ng/ml (0.00-0.05) 06/04/19 20:27 Total Protein 7.0 g/dl (6.4-8.2) 06/04/19 20:27 Albumin 3.5 g/dl (3.4-5.0) 06/04/19 20:27 Lipase 308 U/L (73-393) 06/04/19 20:27 06/04/19 21:37 The patient's potassium is 5.2. The BUN/creatinine still remains at 90 and 3.2. At this time, there is no acute hyperkalemic EKG changes. Patient was given an IV normal saline and the patient reports feeling well. We'll discharge patient home and have her follow with her doctor. At this time, her potassiums is acceptable for outpatient follow-up. Heart Score/ECG Review #1 ECG reviewed & interpreted by me at: 20:05 06/04/19 20:31 NSR 71, LVH, abnormal QRS-T angle, no std/steTWI aVL, T wave flat I, QTC 605 msec
[2019-06-04 20:48] LABS: BASO % 0.9 % (0-2.0); EOS % 2.1 % (0-4.5); HEMATOCRIT 27.7 % (32.4-45.2); HEMOGLOBIN 8.9 GM/dL (10.7-15.3); LYMPH % 10.3 % (8-40); MCH 30.2 pg (25.7-33.7); MCHC 32.1 g/dl (32.0-36.0); MEAN PLT VOLUME 8.2 fl (7.5-11.1); MONO % 13.1 % (3.8-10.2); NEUT % 73.6 % (42.8-82.8); PLATELET COUNT 221 K/MM3 (134-434); RBC 2.95 M/mm3 (3.60-5.2); RDW 17.3 % (11.6-15.6); WHITE BLOOD COUNT 4.9 K/mm3 (4.0-10.0)
[2019-06-04 21:14] LABS: ALBUMIN 3.5 g/dl (3.4-5.0); BILIRUBIN,TOTAL 0.4 mg/dL (0.2-1); BLOOD UREA NITROGEN 90.7 mg/dL (7-18); CALCIUM 8.3 mg/dL (8.5-10.1); CREATININE 3.2 mg/dL (0.55-1.3); POTASSIUM 5.2 mmol/L (3.5-5.1)
--- NOTE | 2019-06-06 00:05 | EKG ---
Test Reason : Blood Pressure : / mmHG Vent. Rate : 071 BPM Atrial Rate : 071 BPM P-R Int : 156 ms QRS Dur : 102 ms QT Int : 466 ms P-R-T Axes : 051 002 095 degrees QTc Int : 506 ms NORMAL SINUS RHYTHM MINIMAL VOLTAGE CRITERIA FOR LVH, MAY BE NORMAL VARIANT ABNORMAL QRS-T ANGLE, CONSIDER PRIMARY T WAVE ABNORMALITY PROLONGED QT ABNORMAL ECG WHEN COMPARED WITH ECG OF 15-JUN-2018 09:15, T WAVE INVERSION NO LONGER EVIDENT IN INFERIOR LEADS Confirmed by ESTEPHANIA MCMAHAN MD ([id number]) on 06/06/2019 12:04:59 AM Referred By: Confirmed By:ESTEPHANIA MCMAHAN MD
== END 2019-06-04 21:51 | disposition home or self-care (01) ==
LOC: JER 18:04
PROC: 3E0337Z Introduction of Electrolytic and Water Balance Substance into Peripheral Vein, Percutaneous Approach (ICD-10-PCS; principal; 2019-06-04)
DX: N18.9 Chronic kidney disease, unspecified (principal); R53.1 Weakness; E87.5 Hyperkalemia; Z85.3 Personal history of malignant neoplasm of breast; I25.10 Atherosclerotic heart disease of native coronary artery without angina pectoris; I10 Essential (primary) hypertension; E78.5 Hyperlipidemia, unspecified; I73.9 Peripheral vascular disease, unspecified; J44.9 Chronic obstructive pulmonary disease, unspecified; Z85.42 Personal history of malignant neoplasm of other parts of uterus
CPT/HCPCS: 36415; 80053; 83690; 84484; 85025; 93005; 93010; 96360; 99283-25

== ENCOUNTER 2019-06-14 12:28 | Emergency (ER) | payer OTHER ==
[2019-06-14 12:38] VITALS: BMI 29.0
--- NOTE | 2019-06-14 13:11 | PDOC ---
History of Present Illness <Tiara Davidson Jose Guadalupesukumar - Last Filed: 06/14/19 17:49> - History of Present Illness Initial Comments: 06/14/19 13:14 63 y/o F with pmh of right breast cancer s/p R breast lumpectomy 2017, CAD, CKD , systolic cardiomyopathy, CHF, HTN, HLD, NIDDM, PAD, anemia, COPD (emphysema), PARVEZ, and uterine CA 2006 presenting with 1 week of BL LE pain and swelling that has worsened over the past day. She reports pain has been worsening over the past week is preventing her to sleep. She called Dr Farr this morning and was told to come to the ED. Her legs feel like pins and needles. Nothing has improved her symptoms; advil provided no relief. Pain is constant for the past week with no change. She reports the onset was sudden and random. Nothing worsens the pain. She also reports nausea and abd distention, and questionable transient chest twinge that occured over the weekend. Denies fever, chest pain, SOB, emesis, LH, HADDAD, claudication like symptoms. PCP: Dr. Ramila Sandra: Dr. Frost Renal: Dr. Farr Cardio: Dr. Naqvi GI: Dr. Feliz PSH: R breast lumpectomy 2017 Social Hx: Smokes 0.5PPD x 45 years, Denies current alcohol, or illicit drug usage. Allergies: Seafood, NKDA <Milady Vazquezmitch - Last Filed: 06/14/19 18:11> - General Chief Complaint: Edema Stated Complaint: EDEMA Time Seen by Provider: 06/14/19 13:09 Past History <Tiara Davidsonaniasukumar - Last Filed: 06/14/19 17:49> - Past Medical History Anemia: Yes Asthma: Yes Cancer: Yes (Uterine Ca - 2006,rt breast ca,) Cardiac Disorders: Yes (Systolic cardiomyopathy, CAD, PAD) CVA: No COPD: No CHF: Yes Dementia: No Diabetes: Yes GI Disorders: Yes (Colon polyps) Disorders: Yes HTN: Yes Hypercholesterolemia: Yes Kidney Stones: Yes (CKD) Liver Disease: No Seizures: No Thyroid Disease: No - Surgical History Abdominal Surgery: No Appendectomy: No Cardiac Surgery: No Cholecystectomy: No Lung Surgery: No Neurologic Surgery: No Orthopedic Surgery: No - Family Disease History Family Disease History: Other: Father (kidney disease), Brother (kidney disease) - Immunization History Immunization Up to Date: Yes - Suicide/Smoking/Psychosocial Hx Smoking Status: Yes Smoking History: Current every day smoker Years of Tobacco Use: 31 Have you smoked in the past 12 months: Yes Number of Cigarettes Smoked Daily: 4 Information on smoking cessation initiated: No 'Breaking Loose' booklet given: 07/11/18 Hx Alcohol Use: No Drug/Substance Use Hx: No Substance Use Type: None Hx Substance Use Treatment: No <Isadora Vazquez - Last Filed: 06/14/19 18:11> - Past Medical History Allergies/Adverse Reactions: Allergies Allergy/AdvReac Type Severity Reaction Status Date / Time No Known Allergies Allergy Verified 06/04/19 18:12 Home Medications: Ambulatory Orders hydrALAZINE HCL [Apresoline -] 50 mg PO BID #60 tablet 11/19/14 Alprazolam [Xanax] 0.5 mg PO HS 06/23/17 Fluticasone/Vilanterol [Breo Ellipta 100-25 Mcg INH] 1 each IH DAILY 11/28/17 Atorvastatin Ca [Lipitor] 20 mg PO HS #30 tab 03/11/18 Folic Acid 1 mg PO DAILY #30 tab 03/11/18 Neomycin/Polymyxn/Hc [Cortisporin *Otic Solution*-] 4 drop AD Q6HPO #1 drops Pramipexole Dihydrochloride [Mirapex -] 0.25 mg PO HS #30 tablet 04/09/18 Metoprolol Tartrate [Lopressor -] 50 mg PO BID 05/14/18 Furosemide [Lasix -] 40 mg PO DAILY 06/15/18 Albuterol 2.5/Ipratropium 0.5 [Duoneb -] 1 amp NEB RQID PRN 07/11/18 Review of Systems - Review of Systems Comments:: 06/14/19 15:04 GENERAL/CONSTITUTIONAL: +chills. No weakness. HEAD, EYES, EARS, NOSE AND THROAT: No change in vision. No ear pain or discharge. No sore throat. CARDIOVASCULAR: No chest pain or shortness of breath RESPIRATORY: No cough, wheezing, or hemoptysis. GASTROINTESTINAL: No vomiting, diarrhea or constipation. GENITOURINARY: No dysuria, frequency, or change in urination. MUSCULOSKELETAL: +LE edema SKIN: No rash NEUROLOGIC: +change in strength/sensation. ENDOCRINE: No increased thirst. No abnormal weight change HEMATOLOGIC/LYMPHATIC: No anemia, easy bleeding, or history of blood clots. ALLERGIC/IMMUNOLOGIC: No hives or skin allergy. <Isadora Vazquez - Last Filed: 06/14/19 18:11> *Physical Exam - Vital Signs Last Vital Signs Temp Pulse Resp BP Pulse Ox 97.8 F 87 16 154/67 98 06/14/19 12:36 06/14/19 12:36 06/14/19 12:36 06/14/19 12:36 06/14/19 12:36 <Tiara Davidson - Last Filed: 06/14/19 17:49> - Vital Signs Last Vital Signs Temp Pulse Resp BP Pulse Ox 97.8 F 87 16 154/67 98 06/14/19 12:36 06/14/19 12:36 06/14/19 12:36 06/14/19 12:36 06/14/19 12:36 - Physical Exam Comments: 06/14/19 15:08 GENERAL: Awake, alert, and fully oriented, in mild acute distress HEAD: No signs of trauma, normocephalic, atraumatic EYES: EOMI, sclera anicteric, conjunctiva clear ENT: Auricles normal inspection, hearing grossly normal, nares patent, oropharynx clear without exudates. Moist mucosa NECK: Normal ROM, supple, no lymphadenopathy, JVD, or masses LUNGS: No distress, speaks full sentences, clear to auscultation bilaterally HEART: Regular rate and rhythm, normal S1 and S2, no murmurs, rubs or gallops, peripheral pulses normal and equal bilaterally. ABDOMEN: Soft, nontender, normoactive bowel sounds. No guarding, no rebound. No masses. +distention EXTREMITIES : BL LE extremities below the knee with increased sensitivity to light touch and pain on palpation in BL calfs. no edema, but BL tense legs NEUROLOGICAL: Cranial nerves II through XII grossly intact. Normal speech, normal gait, no focal sensorimotor deficits SKIN: Warm, Dry, normal turgor, no rashes or lesions noted <Isadora Vazquez - Last Filed: 06/14/19 18:11> ED Treatment Course - LABORATORY CBC & Chemistry Diagram: 06/14/19 15:12 06/14/19 15:12 - ADDITIONAL ORDERS Additional order review: Laboratory Results 06/14/19 15:12 Sodium 138 Potassium 4.5 Chloride 109 H Carbon Dioxide 20 L Anion Gap 9 BUN 81.8 H Creatinine 2.9 H Est GFR (CKD-EPI)AfAm 19.17 Est GFR (CKD-EPI)NonAf 16.54 Random Glucose 99 Calcium 8.4 L Total Bilirubin 0.5 AST 28 ALT 22 Alkaline Phosphatase 209 H Total Protein 7.5 Albumin 3.7 06/14/19 15:12 RBC 3.17 L MCV 94.1 MCHC 32.0 RDW 17.5 H MPV 9.2 D Neutrophils % 70.5 Lymphocytes % 8.5 Monocytes % 18.2 H Eosinophils % 1.9 Basophils % 0.9 <Tiara Davidson - Last Filed: 06/14/19 17:49> - LABORATORY CBC & Chemistry Diagram: 06/14/19 15:12 06/14/19 15:12 <Isadora Vazquez - Last Filed: 06/14/19 18:11> Medical Decision Making - Medical Decision Making 06/14/19 15:13 63 y/o F with pmh of right breast cancer s/p R breast lumpectomy 2017, CAD, CKD , systolic cardiomyopathy, CHF, HTN, HLD, NIDDM, PAD, anemia, COPD (emphysema), PARVEZ, and uterine CA 2006 presenting with 1 week of BL LE pain and swelling that has worsened over the past day -CBC, CMP, trops -EKG, CXR, BL LE duplex 06/14/19 16:02 CXR: fluid in horizontal fissure and enlarged heart; no acute cardiopulmonary pathology 06/14/19 18:10 DVT negative BP elevated SBP 180s;l will administer metoprolol 50mg Discussed with patiuent DC and patient is comfortable with instructions <Isadora Vazquez - Last Filed: 06/14/19 18:11> *DC/Admit/Observation/Transfer - Discharge Dispostion Decision to Admit order: No <Tiara Davidson - Last Filed: 06/14/19 17:49> <Isadora Vazquez - Last Filed: 06/14/19 18:11> Diagnosis at time of Disposition: Leg edema - Discharge Dispostion Disposition: HOME Condition at time of disposition: Stable - Referrals Referrals: Anyi Mcgrath MD [Staff Physician] - - Patient Instructions Printed Discharge Instructions: DI for Peripheral Edema -- Bilateral Additional Instructions: 1) Please follow-up with your primary care doctor in the next 1-2 days. Please call tomorrow for for any urgent issues. 2) You were given a copy of the tests performed today. Please bring the results with you and review them with your primary care doctor. Your laboratory / imaging results were normal, including ultrasound of your legs 3) If you have any worsening of symptoms or any other concerns please return to the ED immediately. Return if worsening symptoms including fevers, headache, vomiting, visual or hearing disturbances, abdominal pain, chest pain, shortness of breath, syncope, dehydration, inability to take things by mouth/vomiting, altered mental status, or worsening concerning symptoms. 4) Please continue taking your home medications as directed. your medications on discharge include tylenol as needed for pain . do not take anti inflammatories that can cause worsening renal failure such as motrin/aleve/advil wear compression stockings to redistribute your fluid in lower extremities elevate the leg with pillows at nighttime.
[2019-06-14 15:26] LABS: BASO % 0.9 % (0-2.0); EOS % 1.9 % (0-4.5); HEMATOCRIT 29.8 % (32.4-45.2); HEMOGLOBIN 9.5 GM/dL (10.7-15.3); LYMPH % 8.5 % (8-40); MCH 30.1 pg (25.7-33.7); MEAN CELL VOLUME 94.1 fl (80-96); MEAN PLT VOLUME 9.2 fl (7.5-11.1); MONO % 18.2 % (3.8-10.2); NEUT % 70.5 % (42.8-82.8); PLATELET COUNT 219 K/MM3 (134-434); RBC 3.17 M/mm3 (3.60-5.2); RDW 17.5 % (11.6-15.6); WHITE BLOOD COUNT 4.8 K/mm3 (4.0-10.0)
[2019-06-14 15:55] LABS: ALBUMIN 3.7 g/dl (3.4-5.0); BILIRUBIN,TOTAL 0.5 mg/dL (0.2-1); BLOOD UREA NITROGEN 81.8 mg/dL (7-18); CALCIUM 8.4 mg/dL (8.5-10.1); CREATININE 2.9 mg/dL (0.55-1.3); POTASSIUM 4.5 mmol/L (3.5-5.1); TOT PROT 7.5 g/dl (6.4-8.2)
--- NOTE | 2019-06-14 17:41 | PDOC ---
Documentation entered by Mee Erickson SCRIBE, acting as scribe for Tiara Davidson MD. Tiara Davidson MD: This documentation has been prepared by the scribe, Mee Erickson SCRIBE, under my direction and personally reviewed by me in its entirety. I confirm that the documentation accurately reflects all work, treatment, procedures, and medical decision making performed by me. Attending Attestation - Resident Resident Name: Isadora Vazquez - ED Attending Attestation I have performed the following: I have examined & evaluated the patient, The case was reviewed & discussed with the resident, I agree w/resident's findings & plan, Exceptions are as noted - HPI HPI: 06/14/19 14:32 63 yo F w a pmh sig for R BrCA s/p R breast lumpectomy 2017, CAD, Systolic cardiomyopathy, CHF, HTN, HLD, NIDDM, PAD, anemia, COPD (emphysema), PARVEZ, colon polyps, and uterine CA 2006, who presents to the [facility] ER with 1 week of B/L LE swelling and pain which progressively worsened last night. Patient called her renal doctor today (Dr. Farr) who advised the patient to come to the ED. She describes the pain as a constant pins and needles sensation from her knees radiating down to her toes. She has tried Advil with no relief of her symptoms. She reports no exacerbating factors. She has experienced similar symptoms in the past and her symptoms resolved after receiving Lasix 80 mg. Patient also reports nausea, abdominal distension., and chest discomfort that she describes as pinching in sensation. The patient denies any fevers, chills, vomiting, diarrhea, constipation, or abdominal pain. Denies any shortness of breath or palpitations. Denies any urinary symptoms. Denies any headache, dizziness, weakness, or changes in strength or sensation. Allergies: NKA PCP: Dr. Mcgrath Gift Wrapper: Dr. Frost Renal: Dr. Farr Cardio: Dr. Naqvi GI: Dr. Feliz - Physicial Exam PE: 06/14/19 14:17 NAD, well appearing, EOMI, PERRL, MMM, nl conjunctiva, anicteric; neck supple. lungs clear, RRR, abdomen soft nontender. Back nontender. KING x4, no focal neuro deficits. +bilateral peripheral edema, +b/l calf tenderness. normal color for ethnicity, WWP. 06/14/19 17:40 - Medical Decision Making 06/14/19 17:40 See HPI for details. Prior notes reviewed, including admissions, discharges and consultations. Vital signs reviewed, wnl. Vital Signs Temp Pulse Resp BP Pulse Ox 97.8 F 87 16 154/67 98 06/14/19 12:36 06/14/19 12:36 06/14/19 12:36 06/14/19 12:36 06/14/19 12:36 DDX DVT, leg edema, venous stasis, PVD, neuropathy, renal failure, electrolyte derangements, msk strain laboratory results and imaging reviewed, basic labs and lytes wnl, baseline CKD , unchanged, baseline anemia and stable EKG normal sinus rhythm at 93 bpm, no interval abnormalities, narrow QRS, ST and T wave segments and morphology normal. Nonspecific T wave abnormalities ED course -interventions: tylenol, analgesia Duplex neg for DVT supportive care, leg compressions, stockings, elevation and analgesia. no nsaids given CKD no cp or sob to suggest fluid overload or cardiac etiology. EKG nonischemic and unchanged. Pt to be discharged in stable condition. Patient made aware of clinical impression, treatment recommendations and disposition plan, return precautions discussed (including but not limited to new or persistent/worsening symptoms, pain, fevers, or signs of infection, chest pain, respiratory distress, inability to tolerate oral intake, dehydration, syncope, or neurologic changes) . Follow up with PMD as recommended, follow up information provided, take medications as instructed for duration of time. continue with supportive care, avoid triggers and precipitants. All questions answered to patient's satisfaction and expressed understanding and comfort with this. At the time of discharge, the patient is alert, clinically improved, tolerating po and verbalizes understanding of instructions, satisfied with the care received and felt comfortable with the plan. Patient does not suffer from an acute life- threatening medical condition at this time and is safe for outpatient follow- up. 06/14/19 17:43 06/14/19 17:43 06/14/19 17:46 Heart Score/ECG Review #1 ECG reviewed & interpreted by me at: 16:50 General ECG Interpretation: Sinus Rhythm, Normal Rate, Normal Intervals Compared to previous ECG there are: No significant change
[2019-06-14] MEDS ORDERED: ACETAMINOPHEN 325 MG TABLET (FP) PO ONE (17:42)
[2019-06-14] MEDS ORDERED: ACETAMINOPHEN 325 MG TABLET (FP) ONE (18:01)
[2019-06-14 18:03] VITALS: BP 187/90; PULSE 92; TEMP 98.5
[2019-06-14] MEDS ORDERED: METOPROLOL TARTRATE 50 MG TABLET (FP) PO ONE (18:06)
--- NOTE | 2019-06-15 09:29 | EKG ---
Test Reason : Blood Pressure : / mmHG Vent. Rate : 093 BPM Atrial Rate : 093 BPM P-R Int : 152 ms QRS Dur : 098 ms QT Int : 412 ms P-R-T Axes : 062 -02 089 degrees QTc Int : 512 ms NORMAL SINUS RHYTHM POSSIBLE LEFT ATRIAL ENLARGEMENT PROLONGED QT ABNORMAL ECG WHEN COMPARED WITH ECG OF 04-JUN-2019 20:04, NO SIGNIFICANT CHANGE WAS FOUND Confirmed by Boo Sunshine MD ([id number]) on 06/15/2019 9:29:13 AM Referred By: Confirmed By:Boo Sunshine MD
== END 2019-06-14 18:16 | disposition home or self-care (01) ==
LOC: JER 12:28
DX: R60.0 Localized edema (principal); I25.10 Atherosclerotic heart disease of native coronary artery without angina pectoris; I13.0 Hypertensive heart and chronic kidney disease with heart failure and stage 1 through stage 4 chronic kidney disease, or unspecified chronic kidney disease; N18.3 Chronic kidney disease, stage 3 (moderate); I50.89 Other heart failure; F17.210 Nicotine dependence, cigarettes, uncomplicated; E11.9 Type 2 diabetes mellitus without complications; Z79.84 Long term (current) use of oral hypoglycemic drugs; I73.9 Peripheral vascular disease, unspecified; D64.9 Anemia, unspecified; J44.9 Chronic obstructive pulmonary disease, unspecified; G47.33 Obstructive sleep apnea (adult) (pediatric); E78.5 Hyperlipidemia, unspecified; Z85.3 Personal history of malignant neoplasm of breast; Z85.42 Personal history of malignant neoplasm of other parts of uterus
CPT/HCPCS: 36415; 71045-TC-FY; 80053; 85025; 93005; 93010; 93970-TC; 99282-25

== ENCOUNTER 2019-09-03 16:55 | Emergency (ER) | payer OTHER ==
[2019-09-03 17:15] VITALS: BP 138/60; PULSE 88; TEMP 98.6; BMI 30.7
--- NOTE | 2019-09-03 17:15 | PDOC ---
Rapid Medical Evaluation Time Seen by Provider: 09/03/19 17:14 Medical Evaluation: Allergies Allergy/AdvReac Type Severity Reaction Status Date / Time No Known Allergies Allergy Verified 06/04/19 18:12 09/03/19 17:14 I have performed a brief in-person evaluation of this patient. The patient presents with a chief complaint of: Sent by Dr. Mcgrath for a blood transfusion. Pt feels lightheaded sometimes with generalized weakness. NO CP/SOB Pertinent physical exam findings: pale I have ordered the following: CBC, CMP, type and screen The patient will proceed to the ED for further evaluation. Discharge Disposition - Diagnosis Anemia - Referrals - Patient Instructions - Post Discharge Activity
[2019-09-03 18:02] LABS: BASO % 0.7 % (0-2.0); EOS % 3.2 % (0-4.5); HEMOGLOBIN 8.4 GM/dL (10.7-15.3); LYMPH % 8.7 % (8-40); MCH 30.4 pg (25.7-33.7); MCHC 32.2 g/dl (32.0-36.0); MEAN CELL VOLUME 94.5 fl (80-96); MEAN PLT VOLUME 8.8 fl (7.5-11.1); NEUT % 74.4 % (42.8-82.8); PLATELET COUNT 221 K/MM3 (134-434); RBC 2.75 M/mm3 (3.60-5.2); RDW 17.8 % (11.6-15.6); WHITE BLOOD COUNT 6.8 K/mm3 (4.0-10.0)
[2019-09-03 18:17] LABS: ALBUMIN 3.5 g/dl (3.4-5.0); BILIRUBIN,TOTAL 0.3 mg/dL (0.2-1); BLOOD UREA NITROGEN 93.7 mg/dL (7-18); CALCIUM 7.6 mg/dL (8.5-10.1); CREATININE 4.1 mg/dL (0.55-1.3); POTASSIUM 5.2 mmol/L (3.5-5.1); TOT PROT 7.1 g/dl (6.4-8.2)
--- NOTE | 2019-09-03 18:44 | PDOC ---
History of Present Illness - General Chief Complaint: Blood Transfusion Stated Complaint: SENT BY PCP Time Seen by Provider: 09/03/19 17:14 Past History - Past Medical History Allergies/Adverse Reactions: Allergies Allergy/AdvReac Type Severity Reaction Status Date / Time No Known Allergies Allergy Verified 09/03/19 17:15 Home Medications: Ambulatory Orders hydrALAZINE HCL [Apresoline -] 50 mg PO BID #60 tablet 11/19/14 Alprazolam [Xanax] 0.5 mg PO HS 06/23/17 Fluticasone/Vilanterol [Breo Ellipta 100-25 Mcg INH] 1 each IH DAILY 11/28/17 Atorvastatin Ca [Lipitor] 20 mg PO HS #30 tab 03/11/18 Folic Acid 1 mg PO DAILY #30 tab 03/11/18 Neomycin/Polymyxn/Hc [Cortisporin *Otic Solution*-] 4 drop AD Q6HPO #1 drops Pramipexole Dihydrochloride [Mirapex -] 0.25 mg PO HS #30 tablet 04/09/18 Metoprolol Tartrate [Lopressor -] 50 mg PO BID 05/14/18 Furosemide [Lasix -] 40 mg PO DAILY 06/15/18 Albuterol 2.5/Ipratropium 0.5 [Duoneb -] 1 amp NEB RQID PRN 07/11/18 Anemia: Yes Asthma: Yes Cancer: Yes (Uterine Ca - 2006,rt breast ca,) Cardiac Disorders: Yes (Systolic cardiomyopathy, CAD, PAD) CVA: No COPD: No CHF: Yes Dementia: No Diabetes: Yes GI Disorders: Yes (Colon polyps) Disorders: Yes HTN: Yes Hypercholesterolemia: Yes Kidney Stones: Yes (CKD) Liver Disease: No Seizures: No Thyroid Disease: No - Surgical History Abdominal Surgery: No Appendectomy: No Cardiac Surgery: No Cholecystectomy: No Lung Surgery: No Neurologic Surgery: No Orthopedic Surgery: No - Immunization History Immunization Up to Date: Yes - Psycho Social/Smoking Cessation Hx Smoking Status: Yes Smoking History: Current every day smoker Years of Tobacco Use: 31 Have you smoked in the past 12 months: Yes Number of Cigarettes Smoked Daily: 10 Information on smoking cessation initiated: No 'Breaking Loose' booklet given: 07/11/18 Hx Alcohol Use: No Drug/Substance Use Hx: No Substance Use Type: None Hx Substance Use Treatment: No *Physical Exam - Vital Signs Last Vital Signs Temp Pulse Resp BP Pulse Ox 98.6 F 88 14 138/60 96 09/03/19 17:11 09/03/19 17:11 09/03/19 17:11 09/03/19 17:11 09/03/19 17:11 ED Treatment Course - LABORATORY CBC & Chemistry Diagram: 09/03/19 17:35 09/03/19 17:35 - ADDITIONAL ORDERS Additional order review: Laboratory Results 09/03/19 09/03/19 17:35 17:35 Sodium 139 Potassium 5.2 H Chloride 111 H Carbon Dioxide 17 L Anion Gap 11 BUN 93.7 H Creatinine 4.1 H Est GFR (CKD-EPI)AfAm 12.61 Est GFR (CKD-EPI)NonAf 10.88 Random Glucose 173 H Calcium 7.6 L Total Bilirubin 0.3 AST 18 ALT 17 Alkaline Phosphatase 184 H Total Protein 7.1 Albumin 3.5 Blood Type B POSITIVE Antibody Screen Negative 09/03/19 17:35 RBC 2.75 L MCV 94.5 MCHC 32.2 RDW 17.8 H MPV 8.8 Neutrophils % 74.4 Lymphocytes % 8.7 Monocytes % 13.0 H Eosinophils % 3.2 Basophils % 0.7 Medical Decision Making - Medical Decision Making HPI: 63yo F with PMH of right breast cancer s/p R breast lumpectomy 2016, CAD, CKD, systolic cardiomyopathy, CHF, HTN, HLD, NIDDM, PAD, anemia, COPD (emphysema), PARVEZ, and uterine CA 2006 sent by her primary care physician for blood transfusion. Patient states she had blood work performed on Friday and was called today around 3pm and instructed to present to the ED. Patient denies acute symptoms. No melena, hematochezia, or hematemesis. States she has received transfusions for her anemia before, most recently about a year ago. She may feel somewhat more short of breath than at baseline, but is unsure. Denies weakness, lightheadedness, syncope, or chest pain. PCP: Dr. Mcgrath Pulm: Dr. Frost Renal: Dr. Farr Cardio: Dr. Naqvi GI: Dr. Feliz ROS: Constitutional: no fever, no chills HEENT: no throat pain, no dysphagia Cardiovascular: no chest pain, no palpitations Respiratory: no cough, no cyanosis Gastrointestinal: no abdominal pain, no nausea Genitourinary: no dysuria, no hematuria Musculoskeletal: no myalgia, no arthralgia Skin: no edema, no bleeding Neurologic: no headache, no vision changes PE: General: Awake, alert, and fully oriented, in no acute distress Head: No signs of trauma Eyes: EOMI, sclera anicteric ENT: Moist mucus membranes Neck: Normal ROM, supple Lungs: Lungs clear, Normal breath sounds Cardio: Regular rhythm, S1 and S2 present Abdomen: Soft, nontender Extremities: Normal range of motion, Distal pulses present SKIN: Warm, Dry, normal turgor Neurologic: Cranial nerves II through XII grossly intact. Normal speech ED Course/MDM: DDX including but not limited to anemia, GI bleed, metabolic derangement Labs 09/03/19 18:44 CBC WBC 6.8 K/mm3 (4.0-10.0) 09/03/19 17:35 RBC 2.75 M/mm3 (3.60-5.2) L 09/03/19 17:35 Hgb 8.4 GM/dL (10.7-15.3) L 09/03/19 17:35 Hct 26.0 % (32.4-45.2) L 09/03/19 17:35 MCV 94.5 fl (80-96) 09/03/19 17:35 MCH 30.4 pg (25.7-33.7) 09/03/19 17:35 MCHC 32.2 g/dl (32.0-36.0) 09/03/19 17:35 RDW 17.8 % (11.6-15.6) H 09/03/19 17:35 Plt Count 221 K/MM3 (134-434) 09/03/19 17:35 MPV 8.8 fl (7.5-11.1) 09/03/19 17:35 Absolute Neuts (auto) 5.1 K/mm3 (1.5-8.0) 09/03/19 17:35 Neutrophils % 74.4 % (42.8-82.8) 09/03/19 17:35 Lymphocytes % 8.7 % (8-40) 09/03/19 17:35 Monocytes % 13.0 % (3.8-10.2) H 09/03/19 17:35 Eosinophils % 3.2 % (0-4.5) 09/03/19 17:35 Basophils % 0.7 % (0-2.0) 09/03/19 17:35 Nucleated RBC % 0 % (0-0) 09/03/19 17:35 No leukocytosis Hgb 8.4 which is at patient's baseline CMP Sodium 139 mmol/L (136-145) 09/03/19 17:35 Potassium 5.2 mmol/L (3.5-5.1) H 09/03/19 17:35 Chloride 111 mmol/L (98-107) H 09/03/19 17:35 Carbon Dioxide 17 mmol/L (21-32) L 09/03/19 17:35 Anion Gap 11 MMOL/L (8-16) 09/03/19 17:35 BUN 93.7 mg/dL (7-18) H 09/03/19 17:35 Creatinine 4.1 mg/dL (0.55-1.3) H 09/03/19 17:35 Est GFR (CKD-EPI)AfAm 12.61 09/03/19 17:35 Est GFR (CKD-EPI)NonAf 10.88 09/03/19 17:35 Random Glucose 173 mg/dL (74-106) H 09/03/19 17:35 Calcium 7.6 mg/dL (8.5-10.1) L 09/03/19 17:35 Total Bilirubin 0.3 mg/dL (0.2-1) 09/03/19 17:35 AST 18 U/L (15-37) 09/03/19 17:35 ALT 17 U/L (13-61) 09/03/19 17:35 Alkaline Phosphatase 184 U/L (45-117) H 09/03/19 17:35 Total Protein 7.1 g/dl (6.4-8.2) 09/03/19 17:35 Albumin 3.5 g/dl (3.4-5.0) 09/03/19 17:35 Electrolytes unremarkable As patient's hemoglobin is at baseline and she is not endorsing acute symptoms ( no weakness/lightheadedness/syncope/chest pain/dyspnea), decision mad eto discharge patient and have her follow up with her primary care physician. Discharged with return precautions Discharge - Discharge Information Problems reviewed: Yes Clinical Impression/Diagnosis: Anemia Qualifiers: Anemia type: unspecified type Qualified Code(s): D64.9 - Anemia, unspecified Condition: Stable Disposition: HOME - Follow up/Referral Referrals: Anyi Mcgrath MD [Primary Care Provider] - - Patient Discharge Instructions Patient Printed Discharge Instructions: Anemia of Chronic Disease Additional Instructions: Follow up with your primary care doctor at your already scheduled appointment. Immediate medical attention is required if you have: any chest pain, palpitations, shortness of breath, severe headaches, changes in vision, episodes of fainting, focal numbness or weakness, any severe abdominal pain, any black tarry stool, or any new or concerning symptoms. If you think you are having an emergency, call for emergency medical services or present to the emergency department right away. - Post Discharge Activity
--- NOTE | 2019-09-04 00:25 | PDOC ---
Attending Attestation - Resident Resident Name: Veronika Villafuerte - ED Attending Attestation I have performed the following: I have examined & evaluated the patient, The case was reviewed & discussed with the resident, I agree w/resident's findings & plan - HPI HPI: 09/04/19 00:23 Pt comes on the order of her doctor, who let her know that her labs drawn 3 days ago showed that she is anemic. Pt has baseline anemia, but she is more anemic at this time. Pt has no complaints and she feels fine. She wants to go home. - Physicial Exam PE: 09/04/19 00:24 Normal exam Agree with resident exam - Medical Decision Making 09/04/19 00:24 Pt has baseline Hb./HCT. She is refusing to stay in the hospital. She will not require transfusion at this time. She can follow with her PMD; pt understands that she must return for dizziness or chest pain.
== END 2019-09-03 20:06 | disposition home or self-care (01) ==
LOC: JER 16:55
DX: D64.9 Anemia, unspecified (principal); E11.22 Type 2 diabetes mellitus with diabetic chronic kidney disease; I13.0 Hypertensive heart and chronic kidney disease with heart failure and stage 1 through stage 4 chronic kidney disease, or unspecified chronic kidney disease; N18.9 Chronic kidney disease, unspecified; I50.9 Heart failure, unspecified; J45.909 Unspecified asthma, uncomplicated; Z85.3 Personal history of malignant neoplasm of breast; Z85.42 Personal history of malignant neoplasm of other parts of uterus; E78.00 Pure hypercholesterolemia, unspecified; K92.9 Disease of digestive system, unspecified
CPT/HCPCS: 36415; 80053; 85025; 86850; 86900; 86901; 99282-25

== ENCOUNTER 2019-09-13 13:32 | Inpatient (IN) | payer OTHER ==
--- NOTE | 2019-09-13 13:44 | PDOC ---
Rapid Medical Evaluation Chief Complaint: Weakness Time Seen by Provider: 09/13/19 13:42 Medical Evaluation: Allergies Allergy/AdvReac Type Severity Reaction Status Date / Time No Known Allergies Allergy Verified 09/13/19 13:43 09/13/19 13:43 HPI: Sent by PC Dr Mcgrath for high K and possible blood transfusion pe: sob no gross deficits ORDERS: Labs Discharge Disposition - Diagnosis Anemia - Referrals - Patient Instructions - Post Discharge Activity
--- NOTE | 2019-09-13 14:28 | PDOC ---
History of Present Illness - General Chief Complaint: Weakness Stated Complaint: BLOOD TRANSFUSION Time Seen by Provider: 09/13/19 13:42 History Source: Patient - History of Present Illness Initial Comments: 09/13/19 14:23 63 yo F PMH HTN, HLD, DM, PAD, anemia, COPD, PARVEZ, CKD, CAD, HFrEF, R breast CA ( s/p R lumpectomy 2017), uterine Ca presents to the ED after her PMD (Dr. Mcgrath ) informed her she is anemic and might need a blood transfusion. pt states she is feeling n/v, SOB, and dizzy x 1 weekpt. pt denies CP, hematemesis, hematochezia. pt has required blood transfusions for anemia in past. Past History - Past Medical History Allergies/Adverse Reactions: Allergies Allergy/AdvReac Type Severity Reaction Status Date / Time No Known Allergies Allergy Verified 09/13/19 13:43 Home Medications: Ambulatory Orders hydrALAZINE HCL [Apresoline -] 50 mg PO BID #60 tablet 11/19/14 Alprazolam [Xanax] 0.5 mg PO HS 06/23/17 Fluticasone/Vilanterol [Breo Ellipta 100-25 Mcg INH] 1 each IH DAILY 11/28/17 Atorvastatin Ca [Lipitor] 20 mg PO HS #30 tab 03/11/18 Folic Acid 1 mg PO DAILY #30 tab 03/11/18 Neomycin/Polymyxn/Hc [Cortisporin *Otic Solution*-] 4 drop AD Q6HPO #1 drops Pramipexole Dihydrochloride [Mirapex -] 0.25 mg PO HS #30 tablet 04/09/18 Metoprolol Tartrate [Lopressor -] 50 mg PO BID 05/14/18 Furosemide [Lasix -] 40 mg PO DAILY 06/15/18 Albuterol 2.5/Ipratropium 0.5 [Duoneb -] 1 amp NEB RQID PRN 07/11/18 Anemia: Yes Asthma: Yes Cancer: Yes (Uterine Ca - 2006,rt breast ca,) Cardiac Disorders: Yes (Systolic cardiomyopathy, CAD, PAD) CVA: No COPD: No CHF: Yes Dementia: No Diabetes: Yes GI Disorders: Yes (Colon polyps) Disorders: Yes HTN: Yes Hypercholesterolemia: Yes Kidney Stones: Yes (CKD) Liver Disease: No Seizures: No Thyroid Disease: No - Surgical History Abdominal Surgery: No Appendectomy: No Cardiac Surgery: No Cholecystectomy: No Lung Surgery: No Neurologic Surgery: No Orthopedic Surgery: No - Immunization History Immunization Up to Date: Yes - Psycho Social/Smoking Cessation Hx Smoking Status: Yes Smoking History: Current every day smoker Years of Tobacco Use: 31 Have you smoked in the past 12 months: Yes Number of Cigarettes Smoked Daily: 40 Information on smoking cessation initiated: No 'Breaking Loose' booklet given: 07/11/18 Hx Alcohol Use: No Drug/Substance Use Hx: No Substance Use Type: None Hx Substance Use Treatment: No Review of Systems - Review of Systems Able to Perform ROS?: Yes Constitutional: Yes: Chills, Weight Stable. No: Fever Respiratory: Yes: Shortness of Breath Cardiac (ROS): Yes: Lightheadedness. No: Chest Pain ABD/GI: Yes: Abdominal Distended, Nausea, Vomiting. No: Blood Streaked Bowels, Constipated, Diarrhea, Tarry Stools : No: Burning, Dysuria, Hematuria Neurological: Yes: Dizziness Hematologic/Lymphatic: Yes: Anemia *Physical Exam - Vital Signs Last Vital Signs Temp Pulse Resp BP Pulse Ox 98.0 F 72 16 160/53 L 97 09/13/19 13:43 09/13/19 13:43 09/13/19 13:43 09/13/19 13:43 09/13/19 13:43 - Physical Exam General Appearance: Yes: Nourished, Obese Respiratory/Chest: positive: Lungs Clear, Normal Breath Sounds. negative: Respiratory Distress, Accessory Muscle Use Cardiovascular: positive: Regular Rhythm, Regular Rate, S1, S2. negative: JVD Gastrointestinal/Abdominal: positive: Normal Bowel Sounds, Soft. negative: Tender, Distended Extremity: positive: Erythema (LUE rash, RLE rash ) Integumentary: positive: Pale ED Treatment Course - LABORATORY CBC & Chemistry Diagram: 09/13/19 14:00 09/13/19 15:55 Medical Decision Making - Medical Decision Making 09/13/19 14:39 63 yo F presenting with SOB, n/v, dizziness -LYSSA on CKD, hyperkalemia -likely anemic, last Hgb 8.2 09/03 -HF exac? -CBC, CMP -EKG, CXR -FOBT 09/13/19 16:08 -EKG reviewed NSR -CXR reviewed -bedside echo r/o effusion -labs reviewed -Dr Moore consulted -conversation with family about potential HD 09/13/19 16:13 -admit to tele -rpt CMP as labs hemolyzed 09/13/19 17:55 -Lasix 40 IV as per nephro recs -rpt K improved 5.7 -FOBT negative -fluid restriction Discharge - Discharge Information Clinical Impression/Diagnosis: Anemia - Follow up/Referral - Patient Discharge Instructions - Post Discharge Activity
[2019-09-13 14:38] LABS: BASO % 0.5 % (0-2.0); EOS % 1.8 % (0-4.5); HEMATOCRIT 25.8 % (32.4-45.2); HEMOGLOBIN 8.1 GM/dL (10.7-15.3); MCH 29.7 pg (25.7-33.7); MCHC 31.4 g/dl (32.0-36.0); MEAN CELL VOLUME 94.6 fl (80-96); MONO % 13.3 % (3.8-10.2); NEUT % 79.4 % (42.8-82.8); PLATELET COUNT 203 K/MM3 (134-434); RBC 2.73 M/mm3 (3.60-5.2); RDW 18.7 % (11.6-15.6)
[2019-09-13 14:44] LABS: INR 1.25 (0.83-1.09); PROTHROMBIN TIME (PATIENT) 14.8 SEC (9.7-13.0)
[2019-09-13 14:47] LABS: ACTIVATED PTT 40.5 SECONDS (25.2-36.5)
[2019-09-13 15:08] LABS: ALBUMIN 3.6 g/dl (3.4-5.0); BILIRUBIN,TOTAL 0.9 mg/dL (0.2-1); CALCIUM 7.6 mg/dL (8.5-10.1); CREATININE 4.8 mg/dL (0.55-1.3); TOT PROT 7.3 g/dl (6.4-8.2)
[2019-09-13 15:22] LABS: EPI CELLS 1.1 /HPF (0-5/HPF); HYALINE CASTS 1 /lpf (0-8); URINE APPEARANCE CLEAR; URINE BACTERIA 22.2 /hpf (NEGATIVE); URINE BILIRUBIN NEGATIVE (NEGATIVE); URINE COLOR YELLOW; URINE GLUCOSE (UA) NEGATIVE (NEGATIVE); URINE KETONE NEGATIVE (NEGATIVE); URINE LEUK ESTERASE NEGATIVE (NEGATIVE); URINE NITRITE NEGATIVE (NEGATIVE); URINE PROTEIN 2+ (NEGATIVE); URINE RBC 2 /hpf (0-4); URINE UROBILINOGEN 0.2 mg/dL (0.2-1.0); URINE WBC 2 /hpf (0-5)
--- NOTE | 2019-09-13 15:34 | HP ---
Admitting History and Physical - Primary Care Physician PCP: Anyi Mcgrath - Admission Chief Complaint: sent in for abnormal labs History of Present Illness: The patient is a 63 year old female who presents to the emergency department from her PCP Dr Mcgrath for evaluation of anemia and possible transfusion. The patient complains of 1 weeks of SOB, dizziness, nausea, and vomiting. PMH: HTN, HLD, DM, PAD, anemia hx of transfusions, COPD, PARVEZ, CKD, CAD, HFrEF, R breast CA (s/p R lumpectomy 2016) per patient she has not been feeling well for last one week feeling weak and nauseous and tired, she says she just does not feel good and notice her abdomen increasing in size she has an appetite wants to eat but feels not good called her PMD who told her to come to ER.no fever , no dyuria no melena no shortness of breath or leg swelling in er on labs [id number], cr 4.8 potassium 6.4, carbonate 15 History Source: Patient - Past Medical History Cardiovascular: Yes: CHF, HTN, Hyperlipdemia, Pulmonary Hypertension Pulmonary: Yes: Asthma, Sleep Apnea (on BIPAP at night) Gastrointestinal: Yes: GI Bleed (see HPI), Other (had EGD and colono 12/31, ) Renal/: Yes: Renal Failure, Renal Inusuff, Other (hyperkalemia) ...LMP: 11/17/07 Heme/Onc: Yes: Anemia Endocrine: Yes: Diabetes Mellitus (uncontrolled) - Smoking History Smoking history: Current every day smoker Have you smoked in the past 12 months: Yes Aproximately how many cigarettes per day: 40 - Alcohol/Substance Use Hx Alcohol Use: No - Social History ADL: Independent History of Recent Travel: No Home Medications - Allergies Allergies/Adverse Reactions: Allergies Allergy/AdvReac Type Severity Reaction Status Date / Time No Known Allergies Allergy Verified 09/13/19 13:43 - Home Medications Home Medications: Ambulatory Orders hydrALAZINE HCL [Apresoline -] 50 mg PO BID #60 tablet 11/19/14 Alprazolam [Xanax] 0.5 mg PO HS 06/23/17 Fluticasone/Vilanterol [Breo Ellipta 100-25 Mcg INH] 1 each IH DAILY 11/28/17 Atorvastatin Ca [Lipitor] 20 mg PO HS #30 tab 03/11/18 Folic Acid 1 mg PO DAILY #30 tab 03/11/18 Neomycin/Polymyxn/Hc [Cortisporin *Otic Solution*-] 4 drop AD Q6HPO #1 drops Pramipexole Dihydrochloride [Mirapex -] 0.25 mg PO HS #30 tablet 04/09/18 Metoprolol Tartrate [Lopressor -] 50 mg PO BID 05/14/18 Furosemide [Lasix -] 40 mg PO DAILY 06/15/18 Albuterol 2.5/Ipratropium 0.5 [Duoneb -] 1 amp NEB RQID PRN 07/11/18 Review of Systems - Review of Systems Constitutional: reports: Weakness Gastrointestinal: reports: Nausea Physical Examination Vital Signs: Vital Signs Temperature 98.0 F 09/13/19 13:43 Pulse Rate 72 09/13/19 13:43 Respiratory Rate 16 09/13/19 13:43 Blood Pressure 160/53 L 09/13/19 13:43 O2 Sat by Pulse Oximetry (%) 97 09/13/19 13:43 Constitutional: Yes: Mild Distress Cardiovascular: Yes: Regular Rate and Rhythm, S1, S2 Labs: CBC, BMP 09/13/19 14:00 09/13/19 14:00 Problem List - Problems (1) Acute hyperkalemia Assessment/Plan: repeat labs renal eval lokelma and sodium bicarbonate telemetry ekg Code(s): E87.5 - HYPERKALEMIA (2) Anemia Assessment/Plan: iron panel stool occult blood protonix Code(s): D64.9 - ANEMIA, UNSPECIFIED (3) CKD (chronic kidney disease) Assessment/Plan: worsening renal function creatine 4.1 to 4.8 with worsening acidosis and inc in bun Code(s): N18.9 - CHRONIC KIDNEY DISEASE, UNSPECIFIED Qualifiers: Chronic kidney disease stage: unspecified stage Qualified Code(s): N18.9 - Chronic kidney disease, unspecified (4) Elevated troponin Assessment/Plan: telemetry echo cardiology Code(s): R79.89 - OTHER SPECIFIED ABNORMAL FINDINGS OF BLOOD CHEMISTRY (5) COPD (chronic obstructive pulmonary disease) Assessment/Plan: pulm bronchodilators Code(s): J44.9 - CHRONIC OBSTRUCTIVE PULMONARY DISEASE, UNSPECIFIED
[2019-09-13 15:36] LABS: BLOOD UREA NITROGEN 124.5 mg/dL (7-18); POTASSIUM 6.4 mmol/L (3.5-5.1)
--- NOTE | 2019-09-13 15:38 | PDOC ---
Documentation entered by Patricia Oviedo SCRIBE, acting as scribe for Joya Pedersen DO. Joya Pedersen DO: This documentation has been prepared by the Preet waggoner Sammi, SCRIBE, under my direction and personally reviewed by me in its entirety. I confirm that the documentation accurately reflects all work, treatment, procedures, and medical decision making performed by me. Attending Attestation - Resident Resident Name: Joan Mcgrath - ED Attending Attestation I have performed the following: I have examined & evaluated the patient, The case was reviewed & discussed with the resident, I agree w/resident's findings & plan, Exceptions are as noted - HPI HPI: 09/13/19 15:05 The patient is a 63 year old female who presents to the emergency department from her PCP Ramila for evaluation of anemia and possible transfusion. The patient complains of 1 weeks of SOB, dizziness, nausea, and vomiting. PMH: HTN, HLD, DM, PAD, anemia hx of transfusions, COPD, PARVEZ, CKD, CAD, HFrEF, R breast CA (s/p R lumpectomy 2017), uterine Ca PCP: Ramila - Physicial Exam PE: 09/13/19 15:40 GENERAL: Pale, generally weak, conversational dyspnea. Obese. Awake, alert, and fully oriented, in no acute distress EYES: PERRLA, EOMI, sclera anicteric, conjunctiva clear ENT: Auricles normal inspection, hearing grossly normal, nares patent, oropharynx clear without exudates. Moist mucosa NECK: Normal ROM, supple, no lymphadenopathy, JVD, or masses LUNGS: Breath sounds equal, clear to auscultation bilaterally. No wheezes, and no crackles HEART: Regular rate and rhythm, normal S1 and S2, no murmurs, rubs or gallops ABDOMEN: Soft, nontender, normoactive bowel sounds. No guarding, no rebound. No masses EXTREMITIES: +trace edema in the ankles. Normal range of motion. NEUROLOGICAL: Cranial nerves II through XII grossly intact. Normal speech, normal gait SKIN: Warm, Dry, normal turgor, no rashes or lesions noted. - Critical Care Time Total Critical Care Time: 35 Critical Care Statement: The care of this patient involved high complexity decision making to prevent further life threatening deterioration of the patient 's condition and/or to evaluate & treat vital organ system(s) failure or risk of failure. - Medical Decision Making 09/13/19 15:33 I, Dr. Joya Pedersen, DO, attest that this document has been prepared under my direction and personally reviewed by me in its entirety. I further attest, that it accurately reflects all work, treatment, procedures and medical decision -making performed by me. a/p: 63yo female with generalized weakness -follows with Dr. Kay as outpt -states feels generally weak -conversational dyspnea on exam -pt denies cp -sometimes has sob -will send labs, ekg, cxr -will monitor and reassess 09/13/19 15:36 pt with LYSSA on CKD hyperkalemia - slightly hemolyzed dr. wheeler at the bedside to see the patient 09/13/19 15:37 resident discussed the case with Dr. Kessler who accepts pt to service 09/13/19 15:37 cxr clear 09/13/19 15:37 hgb 8 09/13/19 15:49 trop elevated no cp no acute ekg changes 09/13/19 16:09 Dr. Naqvi is cards for eval of elevated trop in setting of LYSSA in CKD Heart Score/ECG Review - ECG Intrepretation Comment:: 09/13/19 15:37 sinus at 73, nl axis, nl interval, no acute st/t wave findings
[2019-09-13] MEDS ORDERED: SODIUM ZIRCONIUM CYCLOSILICATE (LOKELMA) 5 GM PACKET PO ONE (15:39)
[2019-09-13] MEDS ORDERED: SODIUM BICARBONATE 8.4% 50 MEQ/50 ML DISP.SYRIN IVPUSH ONE (15:39)
[2019-09-13] MEDS ORDERED: SODIUM BICARBONATE 8.4% 50 MEQ/50 ML VIAL ONE (15:44)
[2019-09-13] MEDS: ALBUTEROL SO4 2.5/IPRATROPIUM 0.5 INH SOL 3 ML VIAL.NEB. NEB SCH ×2 (16:01→21:53)
[2019-09-13] MEDS ORDERED: ALBUTEROL SO4 2.5/IPRATROPIUM 0.5 INH SOL 3 ML VIAL.NEB. NEB ONE (16:01)
--- NOTE | 2019-09-13 16:23 | CONSULT ---
Consultation: REQUESTING PROVIDER: Dr. Kessler CONSULT REQUEST: We have been asked to medically evaluate this patient for LYSSA on CKD HISTORY OF PRESENT ILLNESS: Pt. is a 63 y.o. F w/ PMhx. of Breast CA( s/p R. Lumpectomy and chemo), Endometrial CA( s/p TAHBSO), COPD(not on home O2), CHFpEF (EF: 50-55%, Grade II Diastolic dysfunction), HTN, HLD, DM2, and chronic ear infections presents from PCP's (Dr. Mcgrath) office, for anemia with worsening generalized weakness and increased abdominal swelling for the last few days. Pt. states that she last saw her [facility], Dr. Kay about 1 month ago for routine bloodwork and is due for follow up next month. Pt. states that she has never had HD and is resistant to starting it. Per. Pt. she has had these symtpoms in the past and was started on Patiromer and Lasix to control her elevated potassium and volume status respectively. Pt. states that she is unable to lie flat without becoming short of breath. Pt. endorses smoking 3 packs of cigarettes per week. for the last 30+ years. Pt. is afraid of starting dialysis because of past experiences with mother and brother having ESRD and endorses understanding te consequences of refusing dialysis including sudden . Pt. endorses chills but denies any fever. Pt. denies chest pain, shortness fo breath at rest(inclined position), changes in urination, constipation or any other concerning symptoms. Pt. endorsed nausea and vomiting on ED presentation but currently denies. Pt.denies taking any NSAIDs and endorses still making urine. REVIEW OF SYSTEMS: As above PHYSICAL EXAMINATION Vital Signs - 24 hr 09/13/19 13:43 Temperature 98.0 F Pulse Rate 72 Respiratory 16 Rate Blood Pressure 160/53 L O2 Sat by Pulse 97 Oximetry (%) GENERAL: Awake, alert, and fully oriented, in no acute distress. HEAD: Normal with no signs of trauma. EYES: Extraocular movements intact, sclera anicteric, conjunctiva clear. EARS, NOSE, THROAT: Ears normal, nares patent, oropharynx clear without exudates. Moist mucous membranes. NECK: Normal range of motion, supple without lymphadenopathy, JVD, or masses. LUNGS: Decreased breath sounds equal, clear to auscultation bilaterally. No wheezes. Faint crackles at LL base. No accessory muscle use. Orthopnea + HEART: Regular rate and rhythm, normal S1 and S2 without murmur ABDOMEN: Soft, nontender, not distended, normoactive bowel sounds, no guarding, no rebound, no masses. Protuberant abdomen. MUSCULOSKELETAL: Normal range of motion at all joints. No bony deformities or tenderness. No CVA tenderness. UPPER EXTREMITIES: Warm, well-perfused. No cyanosis. No clubbing. No peripheral edema. LOWER EXTREMITIES: 1+ dorsal pedal pulses, warm, well-perfused. No calf tenderness. Trace edema. NEUROLOGICAL: Cranial nerves II-XII intact. Normal speech. Gait not assessed PSYCHIATRIC: Cooperative. Good eye contact. SKIN: Warm, dry, normal turgor, pale, old scars on LUE. Laboratory Results - last 24 hr 09/13/19 09/13/19 09/13/19 14:00 14:00 14:00 WBC 6.0 RBC 2.73 L Hgb 8.1 L Hct 25.8 L MCV 94.6 MCH 29.7 MCHC 31.4 L RDW 18.7 H Plt Count 203 MPV 9.0 Absolute Neuts (auto) 4.8 Neutrophils % 79.4 Lymphocytes % 5.0 L D Monocytes % 13.3 H Eosinophils % 1.8 Basophils % 0.5 Nucleated RBC % 1 H Retic Count PT with INR 14.80 H INR 1.25 H PTT (Actin FS) 40.5 H Sodium 135 L Potassium 6.4 H* Chloride 109 H Carbon Dioxide 15 L Anion Gap 11 BUN 124.5 H* Creatinine 4.8 H Est GFR (CKD-EPI)AfAm 10.42 Est GFR (CKD-EPI)NonAf 8.99 Random Glucose 110 H Calcium 7.6 L Total Bilirubin 0.9 AST 45 H ALT 29 Alkaline Phosphatase 216 H Creatine Kinase 847 H Troponin I 0.07 H Total Protein 7.3 Albumin 3.6 Urine Color Urine Appearance Urine pH Ur Specific [place] Urine Protein Urine Glucose (UA) Urine Ketones Urine Blood Urine Nitrite Urine Bilirubin Urine Urobilinogen Ur Leukocyte Esterase Urine WBC (Auto) Urine RBC (Auto) Urine Casts (Auto) U Epithel Cells (Auto) Urine Bacteria (Auto) Blood Type Antibody Screen 09/13/19 09/13/19 09/13/19 14:00 14:00 15:02 WBC RBC Hgb Hct MCV MCH MCHC RDW Plt Count MPV Absolute Neuts (auto) Neutrophils % Lymphocytes % Monocytes % Eosinophils % Basophils % Nucleated RBC % Retic Count 1.99 H D PT with INR INR PTT (Actin FS) Sodium Potassium Chloride Carbon Dioxide Anion Gap BUN Creatinine Est GFR (CKD-EPI)AfAm Est GFR (CKD-EPI)NonAf Random Glucose Calcium Total Bilirubin AST ALT Alkaline Phosphatase Creatine Kinase Troponin I Total Protein Albumin Urine Color Yellow Urine Appearance Clear Urine pH 5.0 Ur Specific [place] 1.010 Urine Protein 2+ H Urine Glucose (UA) Negative Urine Ketones Negative Urine Blood Negative Urine Nitrite Negative Urine Bilirubin Negative Urine Urobilinogen 0.2 Ur Leukocyte Esterase Negative Urine WBC (Auto) 2 Urine RBC (Auto) 2 Urine Casts (Auto) 1 U Epithel Cells (Auto) 1.1 Urine Bacteria (Auto) 22.2 Blood Type B POSITIVE Antibody Screen Negative Active Medications Generic Name Dose Route Start Last Admin Trade Name Freq PRN Reason Stop Dose Admin Albuterol/Ipratropium 1 amp 09/13/19 16:00 Duoneb - NEB RQID ALDO Hydralazine HCl 50 mg 09/13/19 22:00 Apresoline - PO BID ALDO ASSESSMENT/PLAN: Pt. is a 63 y.o. F w/ PMhx. of Breast CA (s/p R. Lumpectomy and chemo), Endometrial CA (s/p TAHBSO), COPD(not on home O2), CHFpEF(EF: 50-55%, Grade II Diastolic dysfunction), HTN, HLD, DM2, and chronic ear infections presents from PCP's (Dr. Mcgrath) office, for anemia with worsening generalized weakness and increased abdominal swelling for the last few days. #LYSSA on CKD w/ Hyperkalemia Basline Cr. is usually 2-3 now 4.8 w/ BUN of 124.5--Pt. refusing HD at this time will medically manage UA: 2+ protein Potassium: 6.4 (Given Duonebs in ED); f/u Rpt. BMP K+ baseline is 5.5 Pt. does not have EKG changes, f/u Rpt. EKG w/ give Lokelma 10 gm. Pt. endorses taking Patiromer at home, will f/u w/ Dr. Kay to obtain records decreased Bicarbonate to 15, will supplement with Na Bicarbonate. Monitor on Telemetry #CKD Stage 5 (however is in ESRD now) c/w Lokelma daily as needed discussed with Pt. benefit to try HD first before completely excluding it, if Pt. does not like it then can stop or try alternatives. Call placed to Dr. Kay for continuity of care and to broach the subject of starting HD again ( our recommendation). Palliative care consult recommended. Will give Lasix 40mg IVP for volume overload Pt. would need laprascopic procedure to evaluate for adhesions prior to potentially starting PD, if Pt. is amenable to this, and may need adhelolysis provided there is enough peritoneal membrane to support PD. #CHFpEF last Echo: 50-55%, Grade II Dysfunction, PASP: 59mmHg, mild concentric LVH #COPD c/w home medications #DM2 Last A1c (03/2018): 10.0 will need BGM ACHS will need ISS ACHS reconcile home medications #Breast/ Endometrial CA Last mammogram in 2018 was negative f/u Heme/Onc Consult (per Pt. during her last visit with Dr. Kay there was some skin changes on her right breast). Pt. has not followed up with her oncologist in more than 1 year. #HTN c/w Hydralazine 50mg BID #HLD c/w Atorvastatin 20mg #FEN no IVF, Pt. has CHF, restrict PO intake to 1.5L elevated K+ will give lokelma and f/u RPt. BMP, Please monitor Phos and Magnesium levels with K+ Renal/Low sodium Diet #DVT Ppx. suggest Hep SQ BID Dispo: We will continue to follow the patient. Thank you for this consultative opportunity. Visit type - Emergency Visit Emergency Visit: Yes ED Registration Date: 09/13/19 Care time: The patient presented to the Emergency Department on the above date and was hospitalized for further evaluation of their emergent condition. - New Patient This patient is new to me today: Yes Date on this admission: 09/13/19 - Critical Care Critical Care patient: No ATTENDING PHYSICIAN STATEMENT I saw and evaluated the patient. I reviewed the resident's note and discussed the case with the resident. I agree with the resident's findings and plan as documented. SUBJECTIVE: OBJECTIVE: ASSESSMENT AND PLAN:
[2019-09-13 16:54] LABS: ALBUMIN 3.8 g/dl (3.4-5.0); BILIRUBIN,TOTAL 0.7 mg/dL (0.2-1); CALCIUM 7.7 mg/dL (8.5-10.1); CREATININE 4.8 mg/dL (0.55-1.3); POTASSIUM 5.7 mmol/L (3.5-5.1); TOT PROT 7.5 g/dl (6.4-8.2)
[2019-09-13] MEDS ORDERED: FUROSEMIDE 40 MG/4 ML INJECTABLE VIAL IVPUSH ONE (17:04)
--- NOTE | 2019-09-13 17:13 | PN ---
Teaching Attending Note Name of Resident: Neftali Hagan (Nephrology) ATTENDING PHYSICIAN STATEMENT I saw and evaluated the patient. I reviewed the resident's note and discussed the case with the resident. I agree with the resident's findings and plan as documented. Pt is a 63 year old female with pmhx of ckd, hyperkalemia, chf, htn, dm, anxiety , and anemia who was sent in for anemia and malaise. She follows with Dr Kay. She complains of generalized malaise. She has declined [employer] A[employer]LY[employer] in the past. She has a family history of ESRD. She denies chest pain however she does get shortness of breath at times. pmhx ckd hyperkalemia breast cancer uterine cancer hld htn ros malaise weakness family hx esrd - mother and brother Current Medications Generic Name Dose Route Start Last Admin Trade Name Freq PRN Reason Stop Dose Admin Albuterol/Ipratropium 1 amp 09/13/19 16:00 09/13/19 16:01 Duoneb - NEB 1 amp RQID ALDO Administration Hydralazine HCl 50 mg 09/13/19 22:00 Apresoline - PO BID ALDO Last Vital Signs Temp Pulse Resp BP Pulse Ox 98.0 F 72 16 160/53 L 97 09/13/19 13:43 09/13/19 13:43 09/13/19 13:43 09/13/19 13:43 09/13/19 13:43 Laboratory Tests 06/14/19 09/03/19 09/13/19 15:12 17:35 14:00 WBC Hgb Plt Count Sodium 135 L Potassium 6.4 H* Chloride Carbon Dioxide 15 L Anion Gap 11 BUN 124.5 H* Creatinine 2.9 H 4.1 H 4.8 H Urine Protein 09/13/19 09/13/19 09/13/19 14:00 15:02 15:55 WBC 6.0 Hgb 8.1 L Plt Count 203 Sodium 136 Potassium 5.7 H Chloride 108 H Carbon Dioxide 16 L Anion Gap 12 BUN Creatinine 4.8 H Urine Protein 2+ H cardio s1s2 pulm base crackles GI onese ext trace edema neuro awake skin neg rash Impression 1. CKD 2. anemia 3. CHF 4. HTN 5. DM 6. hyperlipidemia 7. anxiety 8. uterine cancer 9. hx GI bleed 10. COPD 11. breast cancer 12. hyperkalemia Plan - spoke to pt at length about HD and she is reluctant. Her sister is at bedside and is reluctant as well. - will treat potassium medically - start PO bicarb - start lokelma - cont lasix - bedside echo neg for effusion, follow up dedicated echo - spoke to Dr Kay, pt not compliant - oncology evaluation - avoid nsaids
[2019-09-13 17:20] LABS: BLOOD UREA NITROGEN 131.4 mg/dL (7-18)
[2019-09-13] MEDS ORDERED: FUROSEMIDE 40 MG/4 ML INJECTABLE VIAL ONE (17:25)
[2019-09-13 17:33] LABS: MAGNESIUM 1.8 mg/dL (1.8-2.4); PHOSPHOROUS 7.9 mg/dL (2.5-4.9)
[2019-09-13] MEDS: CALCIUM 500MG/VIT-D 200 UNITS COMBO TABLET (FP) PO SCH (18:07)
[2019-09-13] MEDS ORDERED: hydrALAZINE HCL 25 MG TABLET (FP) ONE (20:19)
[2019-09-13] MEDS: SODIUM BICARBONATE 650 MG TABLET PO SCH (21:50)
[2019-09-13] MEDS: hydrALAZINE HCL 25 MG TABLET (FP) PO SCH (21:50)
[2019-09-14] MEDS: MELATONIN 5 MG TABLETS PO PRN ×2 (01:09→23:56)
[2019-09-14] MEDS: SODIUM BICARBONATE 650 MG TABLET PO SCH ×3 (05:45→21:32)
[2019-09-14 06:45] LABS: BASO % 0.6 % (0-2.0); HEMATOCRIT 25.5 % (32.4-45.2); LYMPH % 7.6 % (8-40); MCH 29.8 pg (25.7-33.7); MCHC 31.5 g/dl (32.0-36.0); MEAN CELL VOLUME 94.5 fl (80-96); MONO % 17.2 % (3.8-10.2); NEUT % 71.6 % (42.8-82.8); PLATELET COUNT 195 K/MM3 (134-434); RDW 18.4 % (11.6-15.6); WHITE BLOOD COUNT 6.2 K/mm3 (4.0-10.0)
--- NOTE | 2019-09-14 07:04 | CONSULT ---
Consult - text type - Consultation Consultation Note: 63 year old female who presents to the emergency department from her PCP Dr Mcgrath for evaluation of anemia and possible transfusion. The patient complains of 1 weeks of SOB, dizziness, nausea, and vomiting. PMH: HTN, HLD, DM, PAD, anemia hx of transfusions, COPD, PARVEZ, CKD, CAD, HFrEF, R breast CA (s/p R lumpectomy 2017) per patient she has not been feeling well for last one week feeling weak and nauseous and tired, she says she just does not feel good and notice her abdomen increasing in size she has an appetite wants to eat but feels not good called her PMD who told her to come to ER.no fever , no dyuria no melena no shortness of breath or leg swelling in er on labs [id number], cr 4.8 potassium 6.4, carbonate 15 History Source: Patient - Past Medical History Cardiovascular: Yes: CHF, HTN, Hyperlipdemia, Pulmonary Hypertension Pulmonary: Yes: Asthma, Sleep Apnea (on BIPAP at night) Gastrointestinal: Yes: GI Bleed (see HPI), Other (had EGD and colono 12/31, ) Renal/: Yes: Renal Failure, Renal Inusuff, Other (hyperkalemia) ...LMP: 11/17/07 Heme/Onc: Yes: Anemia Endocrine: Yes: Diabetes Mellitus (uncontrolled) - Smoking History Smoking history: Current every day smoker Have you smoked in the past 12 months: Yes Aproximately how many cigarettes per day: 40 - Alcohol/Substance Use Hx Alcohol Use: No - Social History ADL: Independent History of Recent Travel: No Home Medications - Allergies Allergies/Adverse Reactions: Allergies Allergy/AdvReac Type Severity Reaction Status Date / Time No Known Allergies Allergy Verified 09/13/19 13:43 - Home Medications Home Medications: Ambulatory Orders hydrALAZINE HCL [Apresoline -] 50 mg PO BID #60 tablet 11/19/14 Alprazolam [Xanax] 0.5 mg PO HS 06/23/17 Fluticasone/Vilanterol [Breo Ellipta 100-25 Mcg INH] 1 each IH DAILY 11/28/17 Atorvastatin Ca [Lipitor] 20 mg PO HS #30 tab 03/11/18 Folic Acid 1 mg PO DAILY #30 tab 03/11/18 Neomycin/Polymyxn/Hc [Cortisporin *Otic Solution*-] 4 drop AD Q6HPO #1 drops Pramipexole Dihydrochloride [Mirapex -] 0.25 mg PO HS #30 tablet 04/09/18 Metoprolol Tartrate [Lopressor -] 50 mg PO BID 05/14/18 Furosemide [Lasix -] 40 mg PO DAILY 06/15/18 Albuterol 2.5/Ipratropium 0.5 [Duoneb -] 1 amp NEB RQID PRN 07/11/18 Review of Systems - Review of Systems Constitutional: reports: Weakness Gastrointestinal: reports: Nausea Physical Examination Vital Signs: Vital Signs Temperature 98.0 F 09/13/19 13:43 Pulse Rate 72 09/13/19 13:43 Respiratory Rate 16 09/13/19 13:43 Blood Pressure 160/53 L 09/13/19 13:43 O2 Sat by Pulse Oximetry (%) 97 09/13/19 13:43 Constitutional: Yes: Mild Distress Cardiovascular: Yes: Regular Rate and Rhythm, S1, S2 Lungs: Clear to P&A Abd: Soft, Normal bowel sounds, No organomegaly Ext:No significant edema Rt. breast --post RT changes. No discrete masses/adenopathy. Left breast --no masses/adenopathy Labs: CBC, BMP 09/13/19 14:00 09/13/19 14:00 A/P 63 y/o patient with HTN, HLD, DM, PAD, anemia hx of transfusions, COPD, PARVEZ, CKD , CAD, HFrEF, R breast CA (s/p R lumpectomy 2016), s/p TC x4 Now with anemia, worsening renal function Suspect anemia of chronic disease Check iron studies/ferritin/stool occult h/o rt. 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
[2019-09-14 07:10] LABS: INR 1.23 (0.83-1.09); PROTHROMBIN TIME (PATIENT) 14.5 SEC (9.7-13.0)
[2019-09-14 07:13] LABS: ACTIVATED PTT 42.4 SECONDS (25.2-36.5)
[2019-09-14 07:16] LABS: ALBUMIN 3.6 g/dl (3.4-5.0); ALK PHOS 225 U/L (45-117); ANION GAP 11 MMOL/L (8-16); BILIRUBIN,TOTAL 0.5 mg/dL (0.2-1); CALCIUM 7.4 mg/dL (8.5-10.1); CHLORIDE 110 mmol/L (98-107); CHOLESTEROL 98 mg/dL (50-200); CO2 18 mmol/L (21-32); CREATININE 4.6 mg/dL (0.55-1.3); GLUCOSE,RANDOM 101 mg/dL (74-106); HDL CHOLESTEROL 39 mg/dL (40-60); LDL CHOLESTEROL (ONLY SJRH) 45 mg/dL (5-100); N-TERMINAL BNP > 35000.0 pg/ml (5-125); PHOSPHOROUS 7.6 mg/dL (2.5-4.9); POTASSIUM 5.1 mmol/L (3.5-5.1); SGOT/AST 30 U/L (15-37); SGPT/ALT 28 U/L (13-61); SODIUM 139 mmol/L (136-145); TRIGLYCERIDES 87 mg/dL (0-150)
[2019-09-14 07:19] LABS: BLOOD UREA NITROGEN 126.4 mg/dL (7-18)
[2019-09-14] MEDS: ALBUTEROL SO4 2.5/IPRATROPIUM 0.5 INH SOL 3 ML VIAL.NEB. NEB SCH ×4 (07:25→21:20)
--- NOTE | 2019-09-14 10:53 | CON.CARD ---
Cardiology Consult (text) - Consultation Consultation Note: Consult Specialty:: cardio - History of Present Illness Chief Complaint: abnormal labs History of Present Illness: 63F with abnormal labs, hx anemia. Had one week of shortness of breath, dizziness, nausea and vomiting. Sees Dr. Naqvi for cardio, has not seen in awhile. Noticed abd size increasing over the last week, low appetite. Labs showed K 6.4, Cr 4.8 - given lokelma and IV lasix. This morning no complaints, no chest pain, palps, dizziness, dyspnea. PMH: DM--poor control HTN HPL-- nonisch CMP/CHF-- breast cancer-- CKD hyperkalemia - Past Medical History Cardio/Vascular: Yes: CHF, HTN, Hyperlipdemia, Pulmonary Hypertension Pulmonary: Yes: Asthma, Sleep Apnea (on BIPAP at night) Gastrointestinal: Yes: GI Bleed (see HPI), Other (had EGD and colono 12/31, ) Renal/: Yes: Renal Failure, Renal Inusuff, Other (hyperkalemia) ...LMP: 11/17/07 Endocrine: Yes: Diabetes Mellitus (uncontrolled) - Alcohol/Substance Use Hx Alcohol Use: No - Smoking History Smoking history: Never smoked Have you smoked in the past 12 months: No Aproximately how many cigarettes per day: 4 - Social History ADL: Independent History of Recent Travel: No Home Medications - Allergies Allergies/Adverse Reactions: Allergies Allergy/AdvReac Type Severity Reaction Status Date / Time No Known Allergies Allergy Verified 09/13/19 13:43 Ambulatory Orders hydrALAZINE HCL [Apresoline -] 50 mg PO BID #60 tablet 11/19/14 Alprazolam [Xanax] 0.5 mg PO HS 06/23/17 Fluticasone/Vilanterol [Breo Ellipta 100-25 Mcg INH] 1 each IH DAILY 11/28/17 Atorvastatin Ca [Lipitor] 20 mg PO HS #30 tab 03/11/18 Folic Acid 1 mg PO DAILY #30 tab 03/11/18 Neomycin/Polymyxn/Hc [Cortisporin *Otic Solution*-] 4 drop AD Q6HPO #1 drops Pramipexole Dihydrochloride [Mirapex -] 0.25 mg PO HS #30 tablet 04/09/18 Metoprolol Tartrate [Lopressor -] 50 mg PO BID 05/14/18 Furosemide [Lasix -] 40 mg PO DAILY 06/15/18 Albuterol 2.5/Ipratropium 0.5 [Duoneb -] 1 amp NEB RQID PRN 07/11/18 Review of Systems - Review of Systems Constitutional: denies: Chills, Fever Eyes: denies: Eye Pain HENT: denies: Nasal Congestion Neck: denies: Stiffness Cardiovascular: denies: Palpitations Respiratory: denies: Orthopnea, PND Gastrointestinal: denies: Diarrhea, Rectal Bleeding Genitourinary: denies: Burning, Hematuria Musculoskeletal: denies: Muscle Pain Integumentary: denies: Rash Neurological: denies: Numbness, Seizure, Syncope Endocrine: denies: Excessive Sweating Hematology/Lymphatic: denies: Excessive Bleeding Vital Signs Period Temp Pulse Resp BP Sys/Padron Pulse Ox Last 24 Hr 98.0 F-98.4 F 72-86 16-20 144-161/53-81 95-97 Constitutional: Yes: Well Nourished, No Distress Eyes: No: Sclera Icterus HENT: No: Nasal Congestion Neck: No: Decreased ROM Respiratory: Yes: CTA Bilaterally. No: Accessory Muscle Use, Rales, Wheezes Gastrointestinal: Yes: Normal Bowel Sounds. No: Distention, Hepatomegaly, Palpable Mass, Tenderness Cardiovascular: Yes: Regular Rate and Rhythm JVD: No Carotid Bruit: No PMI: Non-Displaced Heart Sounds: Yes: S1, S2. No: Gallop Murmur: No: Systolic Murmur, Diastolic Murmur Musculoskeletal: Yes: Other (No kyphosis) Extremities: No: Cold, Cyanosis Edema: No Peripheral Pulses: 2+ Left Carotid, 2+ Right Carotid, 2+ Left Doralis Pedis, 2+ Right Dorsalis Pedis Integumentary: No: Jaundice Neurological: Yes: Alert, Oriented (x3) Psychiatric: No: Agitated Laboratory Last Values WBC 6.2 K/mm3 (4.0-10.0) 09/14/19 05:27 RBC 2.70 M/mm3 (3.60-5.2) L 09/14/19 05:27 Hgb 8.0 GM/dL (10.7-15.3) L 09/14/19 05:27 Hct 25.5 % (32.4-45.2) L 09/14/19 05:27 MCV 94.5 fl (80-96) 09/14/19 05:27 MCH 29.8 pg (25.7-33.7) 09/14/19 05:27 MCHC 31.5 g/dl (32.0-36.0) L 09/14/19 05:27 RDW 18.4 % (11.6-15.6) H 09/14/19 05:27 Plt Count 195 K/MM3 (134-434) 09/14/19 05:27 MPV 9.0 fl (7.5-11.1) 09/14/19 05:27 Absolute Neuts (auto) 4.4 K/mm3 (1.5-8.0) 09/14/19 05:27 Neutrophils % 71.6 % (42.8-82.8) 09/14/19 05:27 Lymphocytes % 7.6 % (8-40) L D 09/14/19 05:27 Monocytes % 17.2 % (3.8-10.2) H 09/14/19 05:27 Eosinophils % 3.0 % (0-4.5) 09/14/19 05:27 Basophils % 0.6 % (0-2.0) 09/14/19 05:27 Nucleated RBC % 0 % (0-0) 09/14/19 05:27 Retic Count 1.99 % (0.5-1.5) H D 09/13/19 14:00 PT with INR 14.50 SEC (9.7-13.0) H 09/14/19 05:27 INR 1.23 (0.83-1.09) H 09/14/19 05:27 PTT (Actin FS) 42.4 SECONDS (25.2-36.5) H 09/14/19 05:27 Sodium 139 mmol/L (136-145) 09/14/19 05:27 Potassium 5.1 mmol/L (3.5-5.1) 09/14/19 05:27 Chloride 110 mmol/L (98-107) H 09/14/19 05:27 Carbon Dioxide 18 mmol/L (21-32) L 09/14/19 05:27 Anion Gap 11 MMOL/L (8-16) 09/14/19 05:27 BUN 126.4 mg/dL (7-18) H* 09/14/19 05:27 Creatinine 4.6 mg/dL (0.55-1.3) H 09/14/19 05:27 Est GFR (CKD-EPI)AfAm 10.97 09/14/19 05:27 Est GFR (CKD-EPI)NonAf 9.47 09/14/19 05:27 Random Glucose 101 mg/dL (74-106) 09/14/19 05:27 Hemoglobin A1c % 7.1 % (4.2-6.3) H 09/14/19 05:27 Calcium 7.4 mg/dL (8.5-10.1) L 09/14/19 05:27 Phosphorus 7.6 mg/dL (2.5-4.9) H 09/14/19 05:27 Magnesium 1.8 mg/dL (1.8-2.4) 09/13/19 15:55 Total Bilirubin 0.5 mg/dL (0.2-1) 09/14/19 05:27 AST 30 U/L (15-37) 09/14/19 05:27 ALT 28 U/L (13-61) 09/14/19 05:27 Alkaline Phosphatase 225 U/L (45-117) H 09/14/19 05:27 Creatine Kinase 902 U/L (26-192) H 09/14/19 05:27 Creatine Kinase Index 2.5 % (0.0-5.0) 09/14/19 05:27 CK-MB (CK-2) 22.7 ng/mL (0.5-3.6) H 09/14/19 05:27 Troponin I 0.09 ng/ml (0.00-0.05) H 09/14/19 05:27 B-Natriuretic Peptide > 70224.0 pg/ml (5-125) H 09/14/19 05:27 Total Protein 7.0 g/dl (6.4-8.2) 09/14/19 05:27 Albumin 3.6 g/dl (3.4-5.0) 09/14/19 05:27 Triglycerides 87 mg/dL (0-150) 09/14/19 05:27 Cholesterol 98 mg/dL (50-200) 09/14/19 05:27 Total LDL Cholesterol 45 mg/dL (5-100) 09/14/19 05:27 HDL Cholesterol 39 mg/dL (40-60) L 09/14/19 05:27 Urine Color Yellow 09/13/19 15:02 Urine Appearance Clear 09/13/19 15:02 Urine pH 5.0 (5.0-8.0) 09/13/19 15:02 Ur Specific [place] 1.010 (1.010-1.035) 09/13/19 15:02 Urine Protein 2+ (NEGATIVE) H 09/13/19 15:02 Urine Glucose (UA) Negative (NEGATIVE) 09/13/19 15:02 Urine Ketones Negative (NEGATIVE) 09/13/19 15:02 Urine Blood Negative (NEGATIVE) 09/13/19 15:02 Urine Nitrite Negative (NEGATIVE) 09/13/19 15:02 Urine Bilirubin Negative (NEGATIVE) 09/13/19 15:02 Urine Urobilinogen 0.2 mg/dL (0.2-1.0) 09/13/19 15:02 Ur Leukocyte Esterase Negative (NEGATIVE) 09/13/19 15:02 Urine WBC (Auto) 2 /hpf (0-5) 09/13/19 15:02 Urine RBC (Auto) 2 /hpf (0-4) 09/13/19 15:02 Urine Casts (Auto) 1 /lpf (0-8) 09/13/19 15:02 U Epithel Cells (Auto) 1.1 /HPF (0-5/HPF) 09/13/19 15:02 Urine Bacteria (Auto) 22.2 /hpf (NEGATIVE) 09/13/19 15:02 Stool Occult Blood Negative (NEGATIVE) 09/13/19 Unknown Blood Type B POSITIVE 09/13/19 14:00 Antibody Screen Negative 09/13/19 14:00 Assessment/Plan Echo 08/03: mod LVE, mod decr EF (global). nl RV. mild-mod MR, mod TR. RVSP 45. LHC 06/29: nl EDP; EF 40% (global); 50-60% OM1 (normal FFR); mild dz others MIBI 06/29 (pers): no STs; moder, partly rev defect AW c/w ischemia; mild LVE, mild-mod global LV hypo (40% EF); MILD TID MIBI 08/27 (pers): no ST change; TDS perfusion b/c of GI artifact and gating artifact; mild LV dilation and mild decr EFvisually (no TID) CXR: cardiomegaly, no congestion echo 05/2018 LV mildly dilated, borderline reduced LV function, grade II diastolic dysfunction, elevated filling pressures, LA mildly dilated, mild MAC, mild MR, mod TR, PASP at least 59 mmHg, no effusion EKG: sinus, nl intervals, no ischemic changes tele: sinus ASSESSMENT/PLAN 63 yo smoker with h/o systolic cardiomyopathy, non-obstructive cad, HTN, HL, pHTN, PAD, mod PARVEZ on cpap, CKD (cr 1.8 - 2.2), DM, h/o GIB s/p cauterization of avm's, breast cancer p/w abnormal labs LYSSA, hyperkalemia - improved with lokelma - lasix per renal elevated trop - likely demand in setting of LYSSA - echo pending chronic systolic CHF: -borderline reduced LV function 2017, on lasix at home - BNP >[id number] in setting of LYSSA - cont IV lasix per renal - echo as above - not on EVELINA/ARB due to recurrent severe hyperkalemia - cont bb anemia: - heme consulted Chronic ischemic heart disease: - nonobstrucive OM dz inc FFR negative, no history of angina -continue statin - no asa - hx anemia Essential hypertension: -cont hydralazine Chronic obstructive pulmonary disease -STABLE ON BB LONG TIME -no current sx's Obstructive sleep apnea -USES CPAP AT HOME breast ca -manage per heme/onc PAD: - known h/o obstructive RLE disease, claudication--deferred [employer] perviously due to risks of contrast nephropathy
[2019-09-14] MEDS: hydrALAZINE HCL 25 MG TABLET (FP) PO SCH ×2 (11:06→21:32)
[2019-09-14] MEDS: CALCIUM 500MG/VIT-D 200 UNITS COMBO TABLET (FP) PO SCH (11:06)
[2019-09-14] MEDS: METOPROLOL TARTRATE 50 MG TABLET (FP) PO SCH ×2 (11:06→21:32)
--- NOTE | 2019-09-14 12:01 | ECHO ---
Name: JOSE ROGERS Exam:Adult Echocardiogram Study Date: 09/14/2019 10:22 AM Age: 63 yrs Reason For Study: LOOK AT LVEF Height: 66 in Weight: 195 lb BSA: 2.0 m2 MMode/2D Measurements & Calculations IVSd: 1.1 cm Ao root diam: 2.7 cm LVIDd: 6.0 cm LVIDs: 4.4 cm LVPWd: 1.1 cm EDV(Teich): 179.2 ml LVOT diam: 2.1 cm ESV(Teich): 87.0 ml Doppler Measurements & Calculations MV E max jaylan: 104.9 cm/sec Ao V2 max: 152.2 cm/sec MV A max jaylan: 63.1 cm/sec Ao max P.3 mmHg MV E/A: 1.7 Ao V2 mean: 110.8 cm/sec MV dec time: 0.15 sec Ao mean P.4 mmHg Ao V2 VTI: 35.1 cm MARYCARMEN(V,D): 2.6 cm2 LV V1 max P.1 mmHg MR max jaylan: 550.3 cm/sec LV V1 max: 113.0 cm/sec MR max P.2 mmHg TR max jaylan: 343.7 cm/sec PA V2 max: 137.1 cm/sec TR max P.3 mmHg PA max P.5 mmHg PI end-d jaylan: 181.2 cm/sec Med Peak E' Jaylan: 3.6 cm/sec Med E/e': 29.1 Lat Peak E' Jaylan: 4.2 cm/sec Lat E/e': 25.2 Procedure A complete two-dimensional transthoracic echocardiogram was performed (2D, M-mode, Doppler and color flow Doppler). Left Ventricle The left ventricle is normal in size. Left ventricular systolic function is mildly reduced. Ejection Fraction = 45%. The transmitral spectral Doppler flow pattern is suggestive of impaired LV relaxation. There i s mild global hypokinesis of the left ventricle. Right Ventricle The right ventricle is normal in size and function. Atria The left atrial size is normal. The right atrium is moderately dilated. Mitral Valve The mitral valve is normal in structure and function. There is trace to mild mitral regurgitation. Tricuspid Valve The tricuspid valve is normal in structure and function. There is moderate tricuspid regurgitation. R ight ventricular systolic pressure is elevated at 55 mmhg. There is severe pulmonary hypertension. Aortic Valve The aortic valve is normal in structure and function. Pulmonic Valve The pulmonic valve is normal in structure and function. Mild pulmonic valvular regurgitation. Great Vessels The aortic root is normal size. Pericardium/Pleura There is no pericardial effusion. There is no pleural effusion. Interpretation Summary The left ventricle is normal in size. There is mild global hypokinesis of the left ventricle. Left ventricular systolic function is mildly reduced. Ejection Fraction = 45%. The right ventricle is normal in size and function. The right atrium is moderately dilated. There is trace to mild mitral regurgitation. There is moderate tricuspid regurgitation. Right ventricular systolic pressure is elevated at 55 mmhg. There is severe pulmonary hypertension. Mild pulmonic valvular regurgitation. MD Boo Sunshine 09/14/2019 12:00 PM
--- NOTE | 2019-09-14 12:06 | PN ---
Progress Note, Physician Chief Complaint: Anemia Acute on chronic renal failure CHF Breast Ca History of Present Illness: NAD Seen by Cardiology+ Oncology+ Nephrology Anemia likely 2/2 to CKD- Sees Dr Mateusz Kay - Current Medication List Current Medications: Active Medications Albuterol/Ipratropium (Duoneb -) 1 amp NEB RQID [facility] Last Admin: 09/14/19 11:15 Dose: 1 amp Calcium Carbonate/Cholecalciferol (Os-Sergey 500+D -) 1 tab PO DAILY [facility] Last Admin: 09/14/19 11:06 Dose: 1 tab Hydralazine HCl (Apresoline -) 50 mg PO BID [facility] Last Admin: 09/14/19 11:06 Dose: 50 mg Insulin Aspart (Novolog Vial Sliding Scale -) 1 vial SQ TIDAC [facility]; Protocol Melatonin (Melatonin) 5 mg PO HS PRN PRN Reason: INSOMNIA Last Admin: 09/14/19 01:09 Dose: 5 mg Metoprolol Tartrate (Lopressor -) 50 mg PO BID [facility] Last Admin: 09/14/19 11:06 Dose: 50 mg Sitagliptin Phosphate (Januvia -) 25 mg PO DAILY@0700 [facility] Sodium Bicarbonate (Sodium Bicarbonate -) 1,350 mg PO TID [facility] Last Admin: 09/14/19 05:45 Dose: 1,350 mg - Objective Vital Signs: Vital Signs Temperature 98.4 F 09/14/19 02:00 Pulse Rate 80 09/14/19 08:33 Respiratory Rate 18 09/14/19 08:33 Blood Pressure 156/69 09/14/19 08:33 O2 Sat by Pulse Oximetry (%) 96 09/13/19 23:20 Constitutional: Yes: Well Nourished, No Distress, Calm Cardiovascular: Yes: Regular Rate and Rhythm Respiratory: Yes: Regular Gastrointestinal: Yes: Normal Bowel Sounds, Soft Musculoskeletal: Yes: WNL Extremities: Yes: WNL Edema: No Peripheral Pulses WNL: Yes Neurological: Yes: Alert, Oriented Psychiatric: Yes: Alert, Oriented Labs: CBC, BMP 09/14/19 05:27 09/14/19 05:27 INR, PTT INR 1.23 (0.83-1.09) H 09/14/19 05:27 Problem List - Problems (1) Anemia Assessment/Plan: -likely 2/2 to CKD -Nephrology on board -Hematology on board -Stool OB negative -Iron profile, thyroid+ B12 unremarkable Problems reviewed: Yes Code(s): D64.9 - ANEMIA, UNSPECIFIED (2) Elevated troponin Assessment/Plan: -No S&S of ACS -Elevation could be false+ 2/2 to CKD -Seen by Cardiology Problems reviewed: Yes Code(s): R79.89 - OTHER SPECIFIED ABNORMAL FINDINGS OF BLOOD CHEMISTRY (3) Acute CHF (congestive heart failure) Assessment/Plan: -CXR negative for effusions -Cardiology on board -Continue furosemide 80 mg po daily -BNP elevation could also be false + 2/2 to CKD -Denies SOB Problems reviewed: Yes Code(s): I50.9 - HEART FAILURE, UNSPECIFIED (4) Diabetes mellitus Assessment/Plan: -A1c at 7.1 -BGM AC HS -Novolog sliding scale -Diabetic/renal diet -Start Januvia 25 mg po daily Problems reviewed: Yes Code(s): E11.9 - TYPE 2 DIABETES MELLITUS WITHOUT COMPLICATIONS (5) CKD (chronic kidney disease) Assessment/Plan: -Nephrology on board -Monitor Cr -On [facility] for hyperkalemia -Ideally needs AVF, however refuses it for now Problems reviewed: Yes Code(s): N18.9 - CHRONIC KIDNEY DISEASE, UNSPECIFIED Qualifiers: Chronic kidney disease stage: unspecified stage Qualified Code(s): N18.9 - Chronic kidney disease, unspecified
--- NOTE | 2019-09-14 12:52 | EKG ---
Test Reason : Blood Pressure : / mmHG Vent. Rate : 073 BPM Atrial Rate : 073 BPM P-R Int : 162 ms QRS Dur : 098 ms QT Int : 466 ms P-R-T Axes : 049 -02 078 degrees QTc Int : 513 ms POOR DATA QUALITY, INTERPRETATION MAY BE ADVERSELY AFFECTED NORMAL SINUS RHYTHM NONSPECIFIC ST AND T WAVE ABNORMALITY ABNORMAL ECG WHEN COMPARED WITH ECG OF 14-JUN-2019 16:48, NO SIGNIFICANT CHANGE WAS FOUND Confirmed by MD CORNELIA, KRISTI ([id number]) on 09/14/2019 12:52:18 PM Referred By: Confirmed By:KRISTI LOCKE MD
[2019-09-14 13:32] LABS: IRON SERUM 42 ug/dL (50-175); TOTAL IRON BINDING CAPACITY 198 ug/dL (250-450)
--- NOTE | 2019-09-14 15:43 | PN ---
Progress Note, Physician History of Present Illness: Pt seen and examined at bedside. She says that she feels much better today. She denies shortness of breath. She has appetite. - Current Medication List Current Medications: Active Medications Albuterol/Ipratropium (Duoneb -) 1 amp NEB RQID [facility] Last Admin: 09/14/19 15:37 Dose: 1 amp Calcium Carbonate/Cholecalciferol (Os-Sergey 500+D -) 1 tab PO DAILY [facility] Last Admin: 09/14/19 11:06 Dose: 1 tab Hydralazine HCl (Apresoline -) 50 mg PO BID [facility] Last Admin: 09/14/19 11:06 Dose: 50 mg Insulin Aspart (Novolog Vial Sliding Scale -) 1 vial SQ TIDAC [facility]; Protocol Melatonin (Melatonin) 5 mg PO HS PRN PRN Reason: INSOMNIA Last Admin: 09/14/19 01:09 Dose: 5 mg Metoprolol Tartrate (Lopressor -) 50 mg PO BID [facility] Last Admin: 09/14/19 11:06 Dose: 50 mg Sitagliptin Phosphate (Januvia -) 25 mg PO DAILY@0700 [facility] Sodium Bicarbonate (Sodium Bicarbonate -) 1,300 mg PO TID [facility] - Objective Vital Signs: Vital Signs Temperature 98.2 F 09/14/19 13:37 Pulse Rate 73 09/14/19 13:37 Respiratory Rate 17 09/14/19 13:37 Blood Pressure 142/79 09/14/19 13:37 O2 Sat by Pulse Oximetry (%) 96 09/14/19 10:00 Constitutional: Yes: Calm Eyes: Yes: Conjunctiva Clear Cardiovascular: Yes: S1, S2 Respiratory: Yes: CTA Bilaterally Gastrointestinal: Yes: Soft, Abdomen, Obese Genitourinary: Yes: WNL Extremities: Yes: WNL Edema: Yes Edema: LLE: Trace, RLE: Trace Integumentary: Yes: Venous Stasis Changes Neurological: Yes: Oriented Psychiatric: Yes: Oriented Labs: CBC, BMP 09/14/19 05:27 09/14/19 05:27 INR, PTT INR 1.23 (0.83-1.09) H 09/14/19 05:27 Problem List - Problems (1) Anemia Code(s): D64.9 - ANEMIA, UNSPECIFIED (2) Abnormal EKG Code(s): R94.31 - ABNORMAL ELECTROCARDIOGRAM [ECG] [EKG] (3) Acute CHF (congestive heart failure) Code(s): I50.9 - HEART FAILURE, UNSPECIFIED (4) CAD (coronary artery disease) Code(s): I25.10 - ATHSCL HEART DISEASE OF [place] CORONARY ARTERY W/O ANG PCTRS Qualifiers: Coronary Disease-Associated Artery/Lesion type: [place] coronary artery Associated angina: with other forms of angina pectoris (5) CKD (chronic kidney disease) Code(s): N18.9 - CHRONIC KIDNEY DISEASE, UNSPECIFIED Qualifiers: Chronic kidney disease stage: unspecified stage Qualified Code(s): N18.9 - Chronic kidney disease, unspecified Assessment/Plan Current Medications Generic Name Dose Route Start Last Admin Trade Name Freq PRN Reason Stop Dose Admin Albuterol/Ipratropium 1 amp 09/13/19 16:00 09/14/19 15:37 Duoneb - NEB 1 amp RQID [facility] Administration Calcium Carbonate/Cholecalciferol 1 tab 09/13/19 17:30 09/14/19 11:06 Os-Sergey 500+D - PO 1 tab DAILY [facility] Administration Hydralazine HCl 50 mg 09/13/19 22:00 09/14/19 11:06 Apresoline - PO 50 mg BID [facility] Administration Insulin Aspart 1 vial 09/14/19 16:30 Novolog Vial Sliding Scale - SQ TIDAC [facility] Protocol Melatonin 5 mg 09/14/19 00:40 09/14/19 01:09 Melatonin PO 5 mg HS PRN Administration INSOMNIA Metoprolol Tartrate 50 mg 09/14/19 11:00 09/14/19 11:06 Lopressor - PO 50 mg BID [facility] Administration Sitagliptin Phosphate 25 mg 09/15/19 07:00 Januvia - PO DAILY@0700 [facility] Sodium Bicarbonate 1,300 mg 09/14/19 22:00 Sodium Bicarbonate - PO TID [facility] Impression 1. CKD 2. anemia 3. CHF 4. HTN 5. DM 6. hyperlipidemia 7. anxiety 8. uterine cancer 9. hx GI bleed 10. COPD 11. breast cancer 12. 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
--- NOTE | 2019-09-14 16:43 | PN ---
Progress Note (short form) - Note Progress Note: PULMONARY CONSULTATION DICTATED 09/04/19 IMP DYSPNEA ACUTE ON CHRONIC SYSTOLIC CHF PULMONARY HTN ASHD ACUTE ON CHRONIC KIDNEY FAILURE HYPERKALEMIA PARVEZ PT NON-COMPLIANT WITH CPAP COPD SMOKER ANEMIA HTN HLD DM H/O GIB NAUSEA H/O BREAST CA PLAN LASIX PER RENAL O2 INHALED BRONCHODILATORS MONITOR LYTES ,RENAL FUNCTION MONITOR H+H NORMAL TRANSFUSION THRESHOLD CHEST CT SMOKING CESSATION COUNSELED DAILY WTS DR HARO Problem List - Problems (1) Acute on chronic systolic (congestive) heart failure Code(s): I50.23 - ACUTE ON CHRONIC SYSTOLIC (CONGESTIVE) HEART FAILURE (2) Acute on chronic systolic (congestive) heart failure Code(s): I50.23 - ACUTE ON CHRONIC SYSTOLIC (CONGESTIVE) HEART FAILURE (3) Anemia Code(s): D64.9 - ANEMIA, UNSPECIFIED (4) Acute hyperkalemia Code(s): E87.5 - HYPERKALEMIA (5) Benign hypertension Code(s): I10 - ESSENTIAL (PRIMARY) HYPERTENSION (6) CAD (coronary artery disease) Code(s): I25.10 - ATHSCL HEART DISEASE OF [place] CORONARY ARTERY W/O ANG PCTRS Qualifiers: Coronary Disease-Associated Artery/Lesion type: [place] coronary artery Associated angina: with other forms of angina pectoris (7) CKD (chronic kidney disease) Code(s): N18.9 - CHRONIC KIDNEY DISEASE, UNSPECIFIED Qualifiers: Chronic kidney disease stage: unspecified stage Qualified Code(s): N18.9 - Chronic kidney disease, unspecified (8) Controlled type 2 diabetes mellitus with diabetic peripheral angiopathy without gangrene Code(s): E11.51 - TYPE 2 DIABETES W DIABETIC PERIPHERAL ANGIOPATH W/O GANGRENE (9) Edema Code(s): R60.9 - EDEMA, UNSPECIFIED Qualifiers: Edema type: generalized Qualified Code(s): R60.1 - Generalized edema (10) HTN (hypertension) Code(s): I10 - ESSENTIAL (PRIMARY) HYPERTENSION (11) Hyperkalemia Code(s): E87.5 - HYPERKALEMIA (12) Nausea Code(s): R11.0 - NAUSEA (13) PARVEZ on CPAP Code(s): G47.33 - OBSTRUCTIVE SLEEP APNEA (ADULT) (PEDIATRIC) (14) PVD (peripheral vascular disease) Code(s): I73.9 - PERIPHERAL VASCULAR DISEASE, UNSPECIFIED (15) Pulmonary hypertension Code(s): I27.2 - OTHER SECONDARY PULMONARY HYPERTENSION * DO NOT USE * (16) SOB (shortness of breath) Code(s): R06.02 - SHORTNESS OF BREATH (17) Sleep apnea, obstructive Code(s): G47.33 - OBSTRUCTIVE SLEEP APNEA (ADULT) (PEDIATRIC) (18) Smoker Code(s): F17.200 - NICOTINE DEPENDENCE, UNSPECIFIED, UNCOMPLICATED (19) Smoker unmotivated to quit Code(s): F17.210 - NICOTINE DEPENDENCE, CIGARETTES, UNCOMPLICATED (20) Weakness Code(s): R53.1 - WEAKNESS
[2019-09-14] MEDS ORDERED: PT OWN MED DRAWER 7, Y5N ONE (17:30)
[2019-09-14] MEDS: INSULIN SLIDING SCALE (NOVOLOG) 1 VIAL SQ SCH (17:44)
[2019-09-14] MEDS: SODIUM ZIRCONIUM CYCLOSILICATE (LOKELMA) 5 GM PACKET PO SCH (18:07)
--- NOTE | 2019-09-14 19:01 | CONS ---
DATE OF CONSULTATION: 09/14/2019 PULMONARY CONSULTATION REFERRING PHYSICIAN: Anyi Mcgrath M.D. HISTORY OF PRESENT ILLNESS: Patient is a 63-year-old female with a past medical history of ASHD, obstructive sleep apnea, not compliant with CPAP, pulmonary hypertension, peripheral arterial disease, diabetes, hypertension, hyperlipidemia, history of right breast carcinoma, status post right lumpectomy in 2017, as well as chronic kidney disease, history of tobacco use (approximately 1/2 pack per day since teenage years), admitted to [facility] with complaint of a 1- week history of increasing shortness of breath, dizziness, nausea and vomiting. The patient states for the past week or so she has been feeling weak, nauseous and tired. She denied any chest pain. She also stated that her abdomen has increased in size. The patient called her PMD and was instructed to go to the emergency room. In the ER she was noted to have worsening renal function and be hyperkalemic with a potassium level of initially 5.2 and subsequently 6.4. The patient denies any chest pain, denies any fevers or chills, denies any weight loss or night sweats. Denies any hemoptysis. PAST MEDICAL HISTORY: Again includes chronic kidney disease, chronic obstructive pulmonary disease, obstructive sleep apnea (not on CPAP), pulmonary hypertension , hypertension, hyperlipidemia, congestive heart failure, diabetes, history of GI bleed, history of breast CA (status post right lumpectomy), anemia. SOCIAL HISTORY: No occupational exposures. Positive smoker. CURRENT MEDICATIONS: Include sodium bicarbonate, DuoNeb, Lopressor, Januvia, Apresoline, NovoLog, Lasix, melatonin, Lokelma, and Os-Sergey. REVIEW OF SYSTEMS: Positive orthopnea, positive dyspnea. No chest pain. Positive nausea. Positive increased abdominal girth. No hemoptysis. Positive mild lower extremity edema. PHYSICAL EXAMINATION: General: Patient is a well-developed well-nourished female, awake, alert, in no acute distress. Vital Signs: She is afebrile. Heart rate of 73. Blood pressure is 142/79. Respiratory rate is 17. O2 saturation is 96% on room air. HEENT: Normocephalic, atraumatic. Neck: Supple, without adenopathy. Heart: Regular S1, S2. Chest: Clear. Abdomen: Soft. Bowel sounds are present. Extremities: Without cyanosis. There is trace edema. LABORATORY DATA: BUN 126, creatinine 4.6, potassium 5.1. is 37. BNP is greater than 35,000. DIAGNOSTIC STUDIES: Chest x-ray: Cardiomegaly, and with trace effusions. No evidence of congestion. Echocardiogram reveals pulmonary hypertension with a right ventricular systolic pressure of 55 mmHg. There is mild global hypokinesis of the left ventricle. Left ventricular systolic function is mildly reduced, with ejection fraction of 45%. The right atrium is mildly dilated, and there is moderate tricuspid regurgitation. Renal ultrasound: Morphologically normal kidneys. No evidence of hydronephrosis or acute pathology. IMPRESSION: 1. Dyspnea, [id number] systolic congestive heart failure. 2. Pulmonary hypertension. 3. Ogmeh-yt-mlifeib kidney failure. 4. Arteriosclerotic heart disease. 5. Hyperkalemia. 6. Obstructive sleep apnea, noncompliant with continuous positive airway pressure. 7. Chronic obstructive pulmonary disease. 8. Smoker. 9. Anemia. 10. Hypertension. 11. Hyperlipidemia. 12. Diabetes. 13. History of gastrointestinal bleed. 14. Nausea, likely secondary to uremia. 15. History of breast carcinoma. RECOMMENDATIONS: Suggest continue Lasix as per Renal, supplemental O2, inhaled bronchodilators, monitor electrolytes, renal function. Hemodialysis as per Renal; patient reluctant to start at this time. Monitor hemoglobin and hematocrit with normal transfusion threshold. CT scan of the chest in view of long-standing history of tobacco use. Smoking cessation counseled. FLORENTIN HARO M.D. ALBINO/[id number] MTDD
[2019-09-15] MEDS: INSULIN SLIDING SCALE (NOVOLOG) 1 VIAL SQ SCH ×3 (06:09→17:11)
[2019-09-15] MEDS: SODIUM BICARBONATE 650 MG TABLET PO SCH ×3 (06:26→21:55)
[2019-09-15 07:33] LABS: ALBUMIN 3.5 g/dl (3.4-5.0); BILIRUBIN,TOTAL 0.8 mg/dL (0.2-1); CALCIUM 7.4 mg/dL (8.5-10.1); CREATININE 4.4 mg/dL (0.55-1.3); MAGNESIUM 1.9 mg/dL (1.8-2.4); POTASSIUM 5.6 mmol/L (3.5-5.1); TOT PROT 6.8 g/dl (6.4-8.2)
[2019-09-15 07:35] LABS: BLOOD UREA NITROGEN 126.1 mg/dL (7-18)
[2019-09-15] MEDS: ALBUTEROL SO4 2.5/IPRATROPIUM 0.5 INH SOL 3 ML VIAL.NEB. NEB SCH ×4 (07:50→20:24)
[2019-09-15 07:58] LABS: BASO % 0.4 % (0-2.0); EOS % 2.4 % (0-4.5); HEMATOCRIT 24.4 % (32.4-45.2); HEMOGLOBIN 7.9 GM/dL (10.7-15.3); LYMPH % 9.8 % (8-40); MCH 30.4 pg (25.7-33.7); MCHC 32.4 g/dl (32.0-36.0); MEAN CELL VOLUME 93.8 fl (80-96); MONO % 14.7 % (3.8-10.2); NEUT % 72.7 % (42.8-82.8); PLATELET COUNT 181 K/MM3 (134-434); RDW 18.4 % (11.6-15.6); WHITE BLOOD COUNT 5.2 K/mm3 (4.0-10.0)
--- NOTE | 2019-09-15 08:31 | PN ---
Progress Note, Physician - Current Medication List Current Medications: Active Medications Albuterol/Ipratropium (Duoneb -) 1 amp NEB RQID [facility] Last Admin: 09/15/19 07:50 Dose: Not Given Calcium Carbonate/Cholecalciferol (Os-Sergey 500+D -) 1 tab PO DAILY [facility] Last Admin: 09/14/19 11:06 Dose: 1 tab Furosemide (Lasix -) 80 mg PO DAILY [facility] Hydralazine HCl (Apresoline -) 50 mg PO BID [facility] Last Admin: 09/14/19 21:32 Dose: 50 mg Insulin Aspart (Novolog Vial Sliding Scale -) 1 vial SQ TIDAC [facility]; Protocol Last Admin: 09/15/19 06:09 Dose: Not Given Melatonin (Melatonin) 5 mg PO HS PRN PRN Reason: INSOMNIA Last Admin: 09/14/19 23:56 Dose: 5 mg Metoprolol Tartrate (Lopressor -) 50 mg PO BID [facility] Last Admin: 09/14/19 21:32 Dose: 50 mg Sitagliptin Phosphate (Januvia -) 25 mg PO DAILY@0700 [facility] Last Admin: 09/15/19 06:09 Dose: Not Given Sodium Bicarbonate (Sodium Bicarbonate -) 1,300 mg PO TID [facility] Last Admin: 09/15/19 06:26 Dose: 1,300 mg Sodium Zirconium Cyclosilicate (Lokelma) 10 gm PO DAILY [facility] Last Admin: 09/14/19 18:07 Dose: 10 gm - Objective Vital Signs: Vital Signs Temperature 98.0 F 09/15/19 08:28 Pulse Rate 68 09/15/19 08:28 Respiratory Rate 18 09/15/19 08:28 Blood Pressure 152/62 09/15/19 08:28 O2 Sat by Pulse Oximetry (%) 96 09/14/19 21:00 Labs: CBC, BMP 09/15/19 05:35 09/15/19 05:35 INR, PTT INR 1.23 (0.83-1.09) H 09/14/19 05:27 Assessment/Plan - Problems (1) Anemia Assessment/Plan: -likely 2/2 to CKD -Nephrology on board -Hematology on board -Stool OB negative -Iron profile, thyroid+ B12 unremarkable Problems reviewed: Yes Code(s): D64.9 - ANEMIA, UNSPECIFIED (2) Elevated troponin Assessment/Plan: -No S&S of ACS -Elevation could be false+ 2/2 to CKD -Seen by Cardiology Problems reviewed: Yes Code(s): R79.89 - OTHER SPECIFIED ABNORMAL FINDINGS OF BLOOD CHEMISTRY (3) Acute CHF (congestive heart failure) Assessment/Plan: -CXR negative for effusions -Cardiology on board -Continue furosemide 80 mg po daily -BNP elevation could also be false + 2/2 to CKD -Denies SOB Problems reviewed: Yes Code(s): I50.9 - HEART FAILURE, UNSPECIFIED (4) Diabetes mellitus Assessment/Plan: -A1c at 7.1 -BGM AC HS -Novolog sliding scale -Diabetic/renal diet -Start Januvia 25 mg po daily Problems reviewed: Yes Code(s): E11.9 - TYPE 2 DIABETES MELLITUS WITHOUT COMPLICATIONS (5) CKD (chronic kidney disease) Assessment/Plan: -Nephrology on board -Monitor Cr -On lokelma for hyperkalemia -Ideally needs AVF, however refuses it for now Problems reviewed: Yes Code(s): N18.9 - CHRONIC KIDNEY DISEASE, UNSPECIFIED Qualifiers: Chronic kidney disease stage: unspecified stage Qualified Code(s): N18.9 - Chronic kidney disease, unspecified
[2019-09-15] MEDS: FUROSEMIDE 40 MG TABLET (FP) PO SCH (09:48)
[2019-09-15] MEDS: hydrALAZINE HCL 25 MG TABLET (FP) PO SCH ×2 (09:48→21:54)
[2019-09-15] MEDS: SODIUM ZIRCONIUM CYCLOSILICATE (LOKELMA) 5 GM PACKET PO SCH (09:49)
[2019-09-15] MEDS: METOPROLOL TARTRATE 50 MG TABLET (FP) PO SCH ×2 (09:49→21:54)
[2019-09-15] MEDS: CALCIUM 500MG/VIT-D 200 UNITS COMBO TABLET (FP) PO SCH (09:49)
--- NOTE | 2019-09-15 10:14 | PN ---
Progress Note (short form) - Note Progress Note: s: no chest pain, palps, dizziness, dyspnea Current Medications Albuterol/Ipratropium (Duoneb -) 1 amp NEB RQID [facility] Last Admin: 09/15/19 07:50 Dose: Not Given Calcium Carbonate/Cholecalciferol (Os-Sergey 500+D -) 1 tab PO DAILY [facility] Last Admin: 09/15/19 09:49 Dose: 1 tab Furosemide (Lasix -) 80 mg PO DAILY [facility] Last Admin: 09/15/19 09:48 Dose: 80 mg Hydralazine HCl (Apresoline -) 50 mg PO BID [facility] Last Admin: 09/15/19 09:48 Dose: 50 mg Insulin Aspart (Novolog Vial Sliding Scale -) 1 vial SQ TIDAC [facility]; Protocol Last Admin: 09/15/19 06:09 Dose: Not Given Melatonin (Melatonin) 5 mg PO HS PRN PRN Reason: INSOMNIA Last Admin: 09/14/19 23:56 Dose: 5 mg Metoprolol Tartrate (Lopressor -) 50 mg PO BID [facility] Last Admin: 09/15/19 09:49 Dose: 50 mg Sitagliptin Phosphate (Januvia -) 25 mg PO DAILY@0700 [facility] Last Admin: 09/15/19 06:09 Dose: Not Given Sodium Bicarbonate (Sodium Bicarbonate -) 1,300 mg PO TID [facility] Last Admin: 09/15/19 06:26 Dose: 1,300 mg Sodium Zirconium Cyclosilicate (Lokelma) 10 gm PO DAILY [facility] Last Admin: 09/15/19 09:49 Dose: 10 gm Vital Signs Period Temp Pulse Resp BP Sys/Padron Pulse Ox Last 24 Hr 97.8 F-98.3 F 65-80 17-18 138-155/62-79 96 Constitutional: Yes: Well Nourished, No Distress Eyes: No: Sclera Icterus HENT: No: Nasal Congestion Neck: No: Decreased ROM Respiratory: Yes: CTA Bilaterally. No: Accessory Muscle Use, Rales, Wheezes Gastrointestinal: Yes: Normal Bowel Sounds. No: Distention, Hepatomegaly, Palpable Mass, Tenderness Cardiovascular: Yes: Regular Rate and Rhythm JVD: No Carotid Bruit: No PMI: Non-Displaced Heart Sounds: Yes: S1, S2. No: Gallop Murmur: No: Systolic Murmur, Diastolic Murmur Musculoskeletal: Yes: Other (No kyphosis) Extremities: No: Cold, Cyanosis Edema: No Peripheral Pulses: 2+ Left Carotid, 2+ Right Carotid, 2+ Left Doralis Pedis, 2+ Right Dorsalis Pedis Integumentary: No: Jaundice Neurological: Yes: Alert, Oriented (x3) Psychiatric: No: Agitated Assessment/Plan Echo 08/03: mod LVE, mod decr EF (global). nl RV. mild-mod MR, mod TR. RVSP 45. LHC 06/29: nl EDP; EF 40% (global); 50-60% OM1 (normal FFR); mild dz others MIBI 06/29 (pers): no STs; moder, partly rev defect AW c/w ischemia; mild LVE, mild-mod global LV hypo (40% EF); MILD TID MIBI 08/27 (pers): no ST change; TDS perfusion b/c of GI artifact and gating artifact; mild LV dilation and mild decr EFvisually (no TID) CXR: cardiomegaly, no congestion echo 05/2018 LV mildly dilated, borderline reduced LV function, grade II diastolic dysfunction, elevated filling pressures, LA mildly dilated, mild MAC, mild MR, mod TR, PASP at least 59 mmHg, no effusion EKG: sinus, nl intervals, no ischemic changes echo 08/2019 mild global hypokinesis EF 45%, RV nl, RA mod dilated, tr-mild MR, mod TR, RVSP at least 55 mmHg, severe pulm HTN tele: sinus ASSESSMENT/PLAN 63 yo smoker with h/o systolic cardiomyopathy, non-obstructive cad, HTN, HL, pHTN, PAD, mod PARVEZ on cpap, CKD (cr 1.8 - 2.2), DM, h/o GIB s/p cauterization of avm's, breast cancer p/w abnormal labs LYSSA, hyperkalemia - improved with lokelma - lasix per renal elevated trop - likely demand in setting of LYSSA, no signs ACS - echo mildly reduced LV function chronic systolic CHF: -borderline reduced LV function 2017, on lasix at home - BNP >00606 in setting of LYSSA - cont lasix, restarted PO 80 mg daily - echo as above - not on EVELINA/ARB due to recurrent severe hyperkalemia - cont bb anemia: - heme consulted Chronic ischemic heart disease: - nonobstrucive OM dz inc FFR negative, no history of angina -continue statin - no asa - hx anemia Essential hypertension: -cont hydralazine Chronic obstructive pulmonary disease -STABLE ON BB LONG TIME -no current sx's Obstructive sleep apnea -USES CPAP AT HOME breast ca -manage per heme/onc PAD: - known h/o obstructive RLE disease, claudication--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
--- NOTE | 2019-09-15 11:47 | PN ---
Progress Note, Physician History of Present Illness: Pt seen and examined at bedside. SHe is awake and alert. She is still not sure about starting HD. I spoke to her at length yesterday and again today. I recommend at least preparing for HD. - Current Medication List Current Medications: Active Medications Albuterol/Ipratropium (Duoneb -) 1 amp NEB RQID [facility] Last Admin: 09/15/19 07:50 Dose: Not Given Calcium Carbonate/Cholecalciferol (Os-Sergey 500+D -) 1 tab PO DAILY [facility] Last Admin: 09/15/19 09:49 Dose: 1 tab Furosemide (Lasix -) 80 mg PO DAILY [facility] Last Admin: 09/15/19 09:48 Dose: 80 mg Hydralazine HCl (Apresoline -) 50 mg PO BID [facility] Last Admin: 09/15/19 09:48 Dose: 50 mg Insulin Aspart (Novolog Vial Sliding Scale -) 1 vial SQ TIDAC [facility]; Protocol Last Admin: 09/15/19 06:09 Dose: Not Given Melatonin (Melatonin) 5 mg PO HS PRN PRN Reason: INSOMNIA Last Admin: 09/14/19 23:56 Dose: 5 mg Metoprolol Tartrate (Lopressor -) 50 mg PO BID [facility] Last Admin: 09/15/19 09:49 Dose: 50 mg Sitagliptin Phosphate (Januvia -) 25 mg PO DAILY@0700 [facility] Last Admin: 09/15/19 06:09 Dose: Not Given Sodium Bicarbonate (Sodium Bicarbonate -) 1,300 mg PO TID [facility] Last Admin: 09/15/19 06:26 Dose: 1,300 mg Sodium Zirconium Cyclosilicate (Lokelma) 10 gm PO DAILY [facility] Last Admin: 09/15/19 09:49 Dose: 10 gm - Objective Vital Signs: Vital Signs Temperature 98.0 F 09/15/19 08:28 Pulse Rate 68 09/15/19 08:28 Respiratory Rate 18 09/15/19 08:28 Blood Pressure 152/62 09/15/19 08:28 O2 Sat by Pulse Oximetry (%) 96 09/14/19 21:00 Constitutional: Yes: Calm Eyes: Yes: Conjunctiva Clear HENT: Yes: Atraumatic Neck: Yes: Supple Cardiovascular: Yes: S1, S2 Respiratory: Yes: CTA Bilaterally Gastrointestinal: Yes: Soft, Abdomen, Obese Genitourinary: Yes: WNL Musculoskeletal: Yes: WNL Extremities: Yes: WNL Edema: Yes Edema: LLE: Trace, RLE: Trace Neurological: Yes: Oriented Psychiatric: Yes: Oriented Labs: CBC, BMP 09/15/19 05:35 09/15/19 05:35 INR, PTT INR 1.23 (0.83-1.09) H 09/14/19 05:27 Problem List - Problems (1) Anemia Code(s): D64.9 - ANEMIA, UNSPECIFIED (2) Abnormal EKG Code(s): R94.31 - ABNORMAL ELECTROCARDIOGRAM [ECG] [EKG] (3) Acute CHF (congestive heart failure) Code(s): I50.9 - HEART FAILURE, UNSPECIFIED (4) CAD (coronary artery disease) Code(s): I25.10 - ATHSCL HEART DISEASE OF [place] CORONARY ARTERY W/O ANG PCTRS Qualifiers: Coronary Disease-Associated Artery/Lesion type: [place] coronary artery Associated angina: with other forms of angina pectoris (5) CKD (chronic kidney disease) Code(s): N18.9 - CHRONIC KIDNEY DISEASE, UNSPECIFIED Qualifiers: Chronic kidney disease stage: unspecified stage Qualified Code(s): N18.9 - Chronic kidney disease, unspecified Assessment/Plan Current Medications Generic Name Dose Route Start Last Admin Trade Name Freq PRN Reason Stop Dose Admin Albuterol/Ipratropium 1 amp 09/13/19 16:00 09/15/19 07:50 Duoneb - NEB Not Given RQID ALDO Calcium Carbonate/Cholecalciferol 1 tab 09/13/19 17:30 09/15/19 09:49 Os-Sergey 500+D - PO 1 tab DAILY [facility]DO Administration Furosemide 80 mg 09/15/19 10:00 09/15/19 09:48 Lasix - PO 80 mg DAILY [facility]DO Administration Hydralazine HCl 50 mg 09/13/19 22:00 09/15/19 09:48 Apresoline - PO 50 mg BID ALDO Administration Insulin Aspart 1 vial 09/14/19 16:30 09/15/19 06:09 Novolog Vial Sliding Scale - SQ Not Given TIDAC [facility]DO Protocol Melatonin 5 mg 09/14/19 00:40 09/14/19 23:56 Melatonin PO 5 mg HS PRN Administration INSOMNIA Metoprolol Tartrate 50 mg 09/14/19 11:00 09/15/19 09:49 Lopressor - PO 50 mg BID ALDO Administration Sitagliptin Phosphate 25 mg 09/15/19 07:00 09/15/19 06:09 Januvia - PO Not Given DAILY@0700 ALDO Sodium Bicarbonate 1,300 mg 09/14/19 22:00 09/15/19 06:26 Sodium Bicarbonate - PO 1,300 mg TID ALDO Administration Sodium Zirconium Cyclosilicate 10 gm 09/14/19 16:30 09/15/19 09:49 Lokelma PO 10 gm DAILY [facility]DO Administration Impression 1. CKD 2. anemia 3. CHF 4. HTN 5. DM 6. hyperlipidemia 7. anxiety 8. uterine cancer 9. hx GI bleed 10. COPD 11. breast cancer 12. hyperkalemia Plan - cont bicarb - cont lasix - increase lokelma to bid - recommend that she prepare for HD - pt also considering procrit for anemia, malignancy risk explained - renal diet
--- NOTE | 2019-09-15 12:31 | CON.GI ---
Consult Consult Specialty:: GI Reason for Consultation:: elevated liver enzymes - History of Present Illness History of Present Illness: 62 y/ F with PMH of r ight breast ca(to undergo CTX and RTX, was admiited withCHF, COPD,and CKD. 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 She denies melena, abdominal pain and rectal bleeding. She was asked to go to the ED because of weakness and severe anemia. Stool guaiac was negative. Colonoscopy was done in 2017, which revealed small colonic polyps. Reviewed her labs, she was noted to have isolated increase of Alkaline phosphatase to 257. She is taking statins chronically. - Past Medical History Cardio/Vascular: Yes: CHF, HTN, Hyperlipdemia, Pulmonary Hypertension Pulmonary: Yes: Asthma, Sleep Apnea (on BIPAP at night) Gastrointestinal: Yes: GI Bleed (see HPI), Other (had EGD and colono 12/31, ) Renal/: Yes: Renal Failure, Renal Inusuff, Other (hyperkalemia) ...LMP: 11/17/07 Endocrine: Yes: Diabetes Mellitus (uncontrolled) - Alcohol/Substance Use Hx Alcohol Use: No - Smoking History Smoking history: Current every day smoker Have you smoked in the past 12 months: Yes Aproximately how many cigarettes per day: 40 - Social History ADL: Independent History of Recent Travel: No Home Medications - Allergies Allergies/Adverse Reactions: Allergies Allergy/AdvReac Type Severity Reaction Status Date / Time No Known Allergies Allergy Verified 09/13/19 13:43 - Home Medications Home Medications: Ambulatory Orders hydrALAZINE HCL [Apresoline -] 50 mg PO BID #60 tablet 11/19/14 Alprazolam [Xanax] 0.5 mg PO HS 06/23/17 Fluticasone/Vilanterol [Breo Ellipta 100-25 Mcg INH] 1 each IH DAILY 11/28/17 Atorvastatin Ca [Lipitor] 20 mg PO HS #30 tab 03/11/18 Folic Acid 1 mg PO DAILY #30 tab 03/11/18 Neomycin/Polymyxn/Hc [Cortisporin *Otic Solution*-] 4 drop AD Q6HPO #1 drops Pramipexole Dihydrochloride [Mirapex -] 0.25 mg PO HS #30 tablet 04/09/18 Metoprolol Tartrate [Lopressor -] 50 mg PO BID 05/14/18 Furosemide [Lasix -] 40 mg PO DAILY 06/15/18 Albuterol 2.5/Ipratropium 0.5 [Duoneb -] 1 amp NEB RQID PRN 07/11/18 Physical Exam-GI Vital Signs: Vital Signs Temperature 98.0 F 09/15/19 08:28 Pulse Rate 68 09/15/19 08:28 Respiratory Rate 18 09/15/19 08:28 Blood Pressure 152/62 09/15/19 08:28 O2 Sat by Pulse Oximetry (%) 96 09/14/19 21:00 Labs: CBC, BMP 09/15/19 05:35 09/15/19 05:35 INR, PTT INR 1.23 (0.83-1.09) H 09/14/19 05:27
--- NOTE | 2019-09-15 12:42 | PN ---
Progress Note, Physician History of Present Illness: pulmonary alert,comfortable,sob improving,-cp - Current Medication List Current Medications: Active Medications Albuterol/Ipratropium (Duoneb -) 1 amp NEB RQID [facility] Last Admin: 09/15/19 11:25 Dose: Not Given Calcium Carbonate/Cholecalciferol (Os-Sergey 500+D -) 1 tab PO DAILY [facility] Last Admin: 09/15/19 09:49 Dose: 1 tab Furosemide (Lasix -) 80 mg PO DAILY [facility] Last Admin: 09/15/19 09:48 Dose: 80 mg Hydralazine HCl (Apresoline -) 50 mg PO BID [facility] Last Admin: 09/15/19 09:48 Dose: 50 mg Insulin Aspart (Novolog Vial Sliding Scale -) 1 vial SQ TIDAC [facility]; Protocol Last Admin: 09/15/19 11:47 Dose: Not Given Melatonin (Melatonin) 5 mg PO HS PRN PRN Reason: INSOMNIA Last Admin: 09/14/19 23:56 Dose: 5 mg Metoprolol Tartrate (Lopressor -) 50 mg PO BID [facility] Last Admin: 09/15/19 09:49 Dose: 50 mg Sitagliptin Phosphate (Januvia -) 25 mg PO DAILY@0700 [facility] Last Admin: 09/15/19 06:09 Dose: Not Given Sodium Bicarbonate (Sodium Bicarbonate -) 1,300 mg PO TID [facility] Last Admin: 09/15/19 06:26 Dose: 1,300 mg Sodium Zirconium Cyclosilicate (Lokelma) 10 gm PO DAILY [facility] Last Admin: 09/15/19 09:49 Dose: 10 gm - Objective Vital Signs: Vital Signs Temperature 98.0 F 09/15/19 08:28 Pulse Rate 68 09/15/19 08:28 Respiratory Rate 18 09/15/19 08:28 Blood Pressure 152/62 09/15/19 08:28 O2 Sat by Pulse Oximetry (%) 96 09/14/19 21:00 Constitutional: Yes: Well Nourished, Calm Eyes: Yes: WNL HENT: Yes: WNL Neck: Yes: WNL Cardiovascular: Yes: Regular Rate and Rhythm, S1, S2 Respiratory: Yes: CTA Bilaterally Gastrointestinal: Yes: Normal Bowel Sounds, Soft Extremities: Yes: WNL Edema: No Labs: CBC, BMP 09/15/19 05:35 09/15/19 05:35 INR, PTT INR 1.23 (0.83-1.09) H 09/14/19 05:27 Problem List - Problems (1) Acute on chronic systolic (congestive) heart failure Code(s): I50.23 - ACUTE ON CHRONIC SYSTOLIC (CONGESTIVE) HEART FAILURE (2) Acute on chronic systolic (congestive) heart failure Code(s): I50.23 - ACUTE ON CHRONIC SYSTOLIC (CONGESTIVE) HEART FAILURE (3) Anemia Code(s): D64.9 - ANEMIA, UNSPECIFIED (4) Acute hyperkalemia Code(s): E87.5 - HYPERKALEMIA (5) Benign hypertension Code(s): I10 - ESSENTIAL (PRIMARY) HYPERTENSION (6) CAD (coronary artery disease) Code(s): I25.10 - ATHSCL HEART DISEASE OF [place] CORONARY ARTERY W/O ANG PCTRS Qualifiers: Coronary Disease-Associated Artery/Lesion type: [place] coronary artery Associated angina: with other forms of angina pectoris (7) CKD (chronic kidney disease) Code(s): N18.9 - CHRONIC KIDNEY DISEASE, UNSPECIFIED Qualifiers: Chronic kidney disease stage: unspecified stage Qualified Code(s): N18.9 - Chronic kidney disease, unspecified (8) Controlled type 2 diabetes mellitus with diabetic peripheral angiopathy without gangrene Code(s): E11.51 - TYPE 2 DIABETES W DIABETIC PERIPHERAL ANGIOPATH W/O GANGRENE (9) Edema Code(s): R60.9 - EDEMA, UNSPECIFIED Qualifiers: Edema type: generalized Qualified Code(s): R60.1 - Generalized edema (10) HTN (hypertension) Code(s): I10 - ESSENTIAL (PRIMARY) HYPERTENSION (11) Hyperkalemia Code(s): E87.5 - HYPERKALEMIA (12) Nausea Code(s): R11.0 - NAUSEA (13) PARVEZ on CPAP Code(s): G47.33 - OBSTRUCTIVE SLEEP APNEA (ADULT) (PEDIATRIC) (14) PVD (peripheral vascular disease) Code(s): I73.9 - PERIPHERAL VASCULAR DISEASE, UNSPECIFIED (15) Pulmonary hypertension Code(s): I27.2 - OTHER SECONDARY PULMONARY HYPERTENSION * DO NOT USE * (16) SOB (shortness of breath) Code(s): R06.02 - SHORTNESS OF BREATH (17) Sleep apnea, obstructive Code(s): G47.33 - OBSTRUCTIVE SLEEP APNEA (ADULT) (PEDIATRIC) (18) Smoker Code(s): F17.200 - NICOTINE DEPENDENCE, UNSPECIFIED, UNCOMPLICATED (19) Smoker unmotivated to quit Code(s): F17.210 - NICOTINE DEPENDENCE, CIGARETTES, UNCOMPLICATED (20) Weakness Code(s): R53.1 - WEAKNESS Assessment/Plan IMP DYSPNEA IMPROVING ACUTE ON CHRONIC SYSTOLIC CHF PULMONARY HTN ASHD ACUTE ON CHRONIC KIDNEY FAILURE HYPERKALEMIA PARVEZ PT NON-COMPLIANT WITH CPAP COPD SMOKER ANEMIA HTN HLD DM H/O GIB NAUSEA H/O BREAST CA PLAN LASIX PER RENAL O2 HD PER RENAL IF PT CONSENTS INHALED BRONCHODILATORS MONITOR LYTES ,RENAL FUNCTION MONITOR H+H NORMAL TRANSFUSION THRESHOLD SMOKING CESSATION COUNSELED DAILY WTS DR HARO Problem List - Problems (1) Acute on chronic systolic (congestive) heart failure Code(s): I50.23 - ACUTE ON CHRONIC SYSTOLIC (CONGESTIVE) HEART FAILURE (2) Acute on chronic systolic (congestive) heart failure Code(s): I50.23 - ACUTE ON CHRONIC SYSTOLIC (CONGESTIVE) HEART FAILURE (3) Anemia Code(s): D64.9 - ANEMIA, UNSPECIFIED (4) Acute hyperkalemia Code(s): E87.5 - HYPERKALEMIA (5) Benign hypertension Code(s): I10 - ESSENTIAL (PRIMARY) HYPERTENSION (6) CAD (coronary artery disease) Code(s): I25.10 - ATHSCL HEART DISEASE OF [place] CORONARY ARTERY W/O ANG PCTRS Qualifiers: Coronary Disease-Associated Artery/Lesion type: [place] coronary artery Associated angina: with other forms of angina pectoris (7) CKD (chronic kidney disease) Code(s): N18.9 - CHRONIC KIDNEY DISEASE, UNSPECIFIED Qualifiers: Chronic kidney disease stage: unspecified stage Qualified Code(s): N18.9 - Chronic kidney disease, unspecified (8) Controlled type 2 diabetes mellitus with diabetic peripheral angiopathy without gangrene Code(s): E11.51 - TYPE 2 DIABETES W DIABETIC PERIPHERAL ANGIOPATH W/O GANGRENE (9) Edema Code(s): R60.9 - EDEMA, UNSPECIFIED Qualifiers: Edema type: generalized Qualified Code(s): R60.1 - Generalized edema (10) HTN (hypertension) Code(s): I10 - ESSENTIAL (PRIMARY) HYPERTENSION (11) Hyperkalemia Code(s): E87.5 - HYPERKALEMIA (12) Nausea Code(s): R11.0 - NAUSEA (13) PARVEZ on CPAP Code(s): G47.33 - OBSTRUCTIVE SLEEP APNEA (ADULT) (PEDIATRIC) (14) PVD (peripheral vascular disease) Code(s): I73.9 - PERIPHERAL VASCULAR DISEASE, UNSPECIFIED (15) Pulmonary hypertension Code(s): I27.2 - OTHER SECONDARY PULMONARY HYPERTENSION * DO NOT USE * (16) SOB (shortness of breath) Code(s): R06.02 - SHORTNESS OF BREATH (17) Sleep apnea, obstructive Code(s): G47.33 - OBSTRUCTIVE SLEEP APNEA (ADULT) (PEDIATRIC) (18) Smoker Code(s): F17.200 - NICOTINE DEPENDENCE, UNSPECIFIED, UNCOMPLICATED (19) Smoker unmotivated to quit Code(s): F17.210 - NICOTINE DEPENDENCE, CIGARETTES, UNCOMPLICATED (20) Weakness Code(s): R53.1 - WEAKNESS
[2019-09-15] MEDS: MELATONIN 5 MG TABLETS PO PRN (21:55)
[2019-09-16] MEDS ORDERED: FAMOTIDINE 20 MG/50 ML IVPB 20 MG/50 ML MG IVPB ONE (02:09)
[2019-09-16] MEDS: INSULIN SLIDING SCALE (NOVOLOG) 1 VIAL SQ SCH ×3 (07:03→17:24)
[2019-09-16] MEDS: SODIUM BICARBONATE 650 MG TABLET PO SCH ×3 (07:04→21:30)
[2019-09-16] MEDS ORDERED: INSULIN SLIDING SCALE (NOVOLOG) 1 VIAL SQ ONE (07:13)
[2019-09-16] MEDS: ALBUTEROL SO4 2.5/IPRATROPIUM 0.5 INH SOL 3 ML VIAL.NEB. NEB SCH ×4 (07:40→20:00)
--- NOTE | 2019-09-16 09:09 | PN.GI ---
GI Progress Note Subjective: Patient continues to complain of nausea with vomiting after eating. States having diffuse abdominal pain and non-bloody diarrhea after ingesting food. Denies dysphagia, rectal bleeding, melena. - Objective Vital Signs: Vital Signs Temperature 98.2 F 09/16/19 08:46 Pulse Rate 69 09/16/19 08:46 Respiratory Rate 16 09/16/19 08:46 Blood Pressure 149/75 09/16/19 08:46 O2 Sat by Pulse Oximetry (%) 96 09/15/19 21:00 Constitutional: No Distress, Calm Eyes: Yes: Conjunctiva Clear HENT: Yes: Atraumatic Cardiovascular: Yes: Regular Rate and Rhythm Respiratory: Yes: Regular, Diminished Gastrointestinal Inspection: Yes: Distention (mild). No: WNL, Ascites, Hernia, Scars, Other ...Auscultate: Yes: Normoactive Bowel Sounds. No: Hyperactive Bowel Sounds, Hypoactive Bowel Sounds, No Bowel Sounds, Other ...Palpate: Yes: Soft, Tenderness (diffuse). No: Firm/Rigid, Guarding, Hepatomegaly, Mass, Pulsatile Mass, Splenomegaly, Tenderness, Epigastium, Tenderness, Rebound, Other ...Percussion: Yes: Tympanitic. No: Dullness, Fluid Wave, Other Neurological: Yes: Alert, Oriented Psychiatric: Yes: Alert, Oriented Labs: CBC, BMP 09/15/19 05:35 09/15/19 05:35 INR, PTT INR 1.23 (0.83-1.09) H 09/14/19 05:27 Active Medications Generic Name Dose Route Start Last Admin Trade Name Lois PRN Reason Stop Dose Admin Albuterol/Ipratropium 1 amp 09/13/19 16:00 09/16/19 07:40 Duoneb - NEB Not Given RQID ALDO Calcium Carbonate/Cholecalciferol 1 tab 09/13/19 17:30 09/15/19 09:49 Os-Sergey 500+D - PO 1 tab DAILY ALDO Administration Furosemide 80 mg 09/15/19 10:00 09/15/19 09:48 Lasix - PO 80 mg DAILY ALDO Administration Hydralazine HCl 50 mg 09/13/19 22:00 09/15/19 21:54 Apresoline - PO 50 mg BID ALDO Administration Insulin Aspart 1 vial 09/14/19 16:30 09/16/19 07:03 Novolog Vial Sliding Scale - SQ Not Given TIDAC [facility] Protocol Melatonin 5 mg 09/14/19 00:40 09/15/19 21:55 Melatonin PO 5 mg HS PRN Administration INSOMNIA Metoprolol Tartrate 50 mg 09/14/19 11:00 09/15/19 21:54 Lopressor - PO 50 mg BID ALDO Administration Sitagliptin Phosphate 25 mg 09/15/19 07:00 09/16/19 07:04 Januvia - PO 25 mg DAILY@0700 ALDO Administration Sodium Bicarbonate 1,300 mg 09/14/19 22:00 09/16/19 07:04 Sodium Bicarbonate - PO 1,300 mg TID ALDO Administration Sodium Zirconium Cyclosilicate 10 gm 09/14/19 16:30 09/15/19 09:49 Lokelma PO 10 gm DAILY ALDO Administration Problem List - Problems (1) Abdominal pain Assessment/Plan: >Xifaxin and Creon >Liver US shows multiple gallstones with wall thickening and without evidence of pericholecystic free fluid Code(s): R10.9 - UNSPECIFIED ABDOMINAL PAIN (2) Gastroparesis Code(s): K31.84 - GASTROPARESIS (3) Transaminitis Assessment/Plan: >Liver US shows hepatomegaly with slightly coarse echotexture >Alk Phos showing downtrend ~225 Code(s): R74.0 - NONSPEC ELEV OF LEVELS OF TRANSAMNS & LACTIC ACID DEHYDRGNSE
[2019-09-16] MEDS ORDERED: PT OWN MED DRAWER 7, Y5N ONE ×2 (09:35→12:45)
[2019-09-16] MEDS: METOPROLOL TARTRATE 50 MG TABLET (FP) PO SCH ×2 (09:37→21:30)
[2019-09-16] MEDS: hydrALAZINE HCL 25 MG TABLET (FP) PO SCH ×2 (09:37→21:30)
[2019-09-16] MEDS: CALCIUM 500MG/VIT-D 200 UNITS COMBO TABLET (FP) PO SCH (09:37)
[2019-09-16] MEDS: FUROSEMIDE 40 MG TABLET (FP) PO SCH (09:37)
[2019-09-16] MEDS: RIFAXIMIN 550 MG TABLET (UD) PO SCH ×2 (10:27→21:30)
--- NOTE | 2019-09-16 11:12 | PN ---
Progress Note, Physician History of Present Illness: Pt seen and examined at bedside. She has nausea after eating. She does not want epogen. She does not want dialysis at this point. - Current Medication List Current Medications: Active Medications Albuterol/Ipratropium (Duoneb -) 1 amp NEB RQID [facility] Last Admin: 09/16/19 07:40 Dose: Not Given Calcium Carbonate/Cholecalciferol (Os-Sergey 500+D -) 1 tab PO DAILY [facility] Last Admin: 09/16/19 09:37 Dose: 1 tab Furosemide (Lasix -) 80 mg PO DAILY [facility] Last Admin: 09/16/19 09:37 Dose: 80 mg Hydralazine HCl (Apresoline -) 50 mg PO BID [facility] Last Admin: 09/16/19 09:37 Dose: 50 mg Insulin Aspart (Novolog Vial Sliding Scale -) 1 vial SQ TIDAC [facility]; Protocol Last Admin: 09/16/19 07:03 Dose: Not Given Melatonin (Melatonin) 5 mg PO HS PRN PRN Reason: INSOMNIA Last Admin: 09/15/19 21:55 Dose: 5 mg Metoprolol Tartrate (Lopressor -) 50 mg PO BID [facility] Last Admin: 09/16/19 09:37 Dose: 50 mg Pancrelipase (Creon Dr 36,000 Units Capsule) 1 cap PO TIDCM [facility] Rifaximin (Xifaxan -) 550 mg PO BID [facility] Last Admin: 09/16/19 10:27 Dose: 550 mg Sitagliptin Phosphate (Januvia -) 25 mg PO DAILY@0700 [facility] Last Admin: 09/16/19 07:04 Dose: 25 mg Sodium Bicarbonate (Sodium Bicarbonate -) 1,300 mg PO TID [facility] Last Admin: 09/16/19 07:04 Dose: 1,300 mg Sodium Zirconium Cyclosilicate (Lokelma) 10 gm PO DAILY [facility] Last Admin: 09/15/19 09:49 Dose: 10 gm - Objective Vital Signs: Vital Signs Temperature 98.2 F 09/16/19 08:46 Pulse Rate 69 09/16/19 08:46 Respiratory Rate 16 09/16/19 08:46 Blood Pressure 149/75 09/16/19 08:46 O2 Sat by Pulse Oximetry (%) 96 09/15/19 21:00 Constitutional: Yes: Calm Eyes: Yes: Conjunctiva Clear HENT: Yes: Atraumatic Neck: Yes: Supple Cardiovascular: Yes: S1, S2 Respiratory: Yes: CTA Bilaterally Gastrointestinal: Yes: Soft Genitourinary: Yes: WNL Musculoskeletal: Yes: WNL Edema: Yes Edema: LLE: Trace, RLE: Trace Neurological: Yes: Oriented Psychiatric: Yes: Oriented Labs: CBC, BMP 09/15/19 05:35 09/15/19 05:35 INR, PTT INR 1.23 (0.83-1.09) H 09/14/19 05:27 Problem List - Problems (1) Anemia Code(s): D64.9 - ANEMIA, UNSPECIFIED (2) Abnormal EKG Code(s): R94.31 - ABNORMAL ELECTROCARDIOGRAM [ECG] [EKG] (3) Acute CHF (congestive heart failure) Code(s): I50.9 - HEART FAILURE, UNSPECIFIED (4) CAD (coronary artery disease) Code(s): I25.10 - ATHSCL HEART DISEASE OF [place] CORONARY ARTERY W/O ANG PCTRS Qualifiers: Coronary Disease-Associated Artery/Lesion type: [place] coronary artery Associated angina: with other forms of angina pectoris (5) CKD (chronic kidney disease) Code(s): N18.9 - CHRONIC KIDNEY DISEASE, UNSPECIFIED Qualifiers: Chronic kidney disease stage: unspecified stage Qualified Code(s): N18.9 - Chronic kidney disease, unspecified Assessment/Plan Current Medications Generic Name Dose Route Start Last Admin Trade Name Freq PRN Reason Stop Dose Admin Albuterol/Ipratropium 1 amp 09/13/19 16:00 09/16/19 07:40 Duoneb - NEB Not Given RQID ALDO Calcium Carbonate/Cholecalciferol 1 tab 09/13/19 17:30 09/16/19 09:37 Os-Sergey 500+D - PO 1 tab DAILY [facility] Administration Furosemide 80 mg 09/15/19 10:00 09/16/19 09:37 Lasix - PO 80 mg DAILY [facility] Administration Hydralazine HCl 50 mg 09/13/19 22:00 09/16/19 09:37 Apresoline - PO 50 mg BID ALDO Administration Insulin Aspart 1 vial 09/14/19 16:30 09/16/19 07:03 Novolog Vial Sliding Scale - SQ Not Given TIDAC [facility] Protocol Melatonin 5 mg 09/14/19 00:40 09/15/19 21:55 Melatonin PO 5 mg HS PRN Administration INSOMNIA Metoprolol Tartrate 50 mg 09/14/19 11:00 09/16/19 09:37 Lopressor - PO 50 mg BID ALDO Administration Pancrelipase 1 cap 09/16/19 12:00 Diana Wang 36,000 Units Capsule PO TIDCM [facility] Rifaximin 550 mg 09/16/19 10:00 09/16/19 10:27 Xifaxan - PO 550 mg BID ALDO Administration Sitagliptin Phosphate 25 mg 09/15/19 07:00 09/16/19 07:04 Januvia - PO 25 mg DAILY@0700 [facility]DO Administration Sodium Bicarbonate 1,300 mg 09/14/19 22:00 09/16/19 07:04 Sodium Bicarbonate - PO 1,300 mg TID ALDO Administration Sodium Zirconium Cyclosilicate 10 gm 09/14/19 16:30 09/15/19 09:49 Lokelma PO 10 gm DAILY [facility]DO Administration Impression 1. CKD 2. anemia 3. CHF 4. HTN 5. DM 6. hyperlipidemia 7. anxiety 8. uterine cancer 9. hx GI bleed 10. COPD 11. breast cancer 12. hyperkalemia Plan - follow up labs - cont lokelma for now - cont bicarb - pt does not want epogen - pt does not want HD at this point - discussed PD as well and she does not want that either - will need to decide on GOC, lytes will be more difficult to manage as her renal function worsens - renal diet
[2019-09-16 11:31] LABS: BASO % 0.2 % (0-2.0); EOS % 1.4 % (0-4.5); HEMOGLOBIN 7.9 GM/dL (10.7-15.3); LYMPH % 5.7 % (8-40); MCH 29.9 pg (25.7-33.7); MCHC 31.5 g/dl (32.0-36.0); MEAN CELL VOLUME 94.9 fl (80-96); MEAN PLT VOLUME 8.5 fl (7.5-11.1); MONO % 15.9 % (3.8-10.2); NEUT % 76.8 % (42.8-82.8); PLATELET COUNT 172 K/MM3 (134-434); RBC 2.64 M/mm3 (3.60-5.2); RDW 18.5 % (11.6-15.6); WHITE BLOOD COUNT 4.7 K/mm3 (4.0-10.0)
--- NOTE | 2019-09-16 11:39 | PN ---
Progress Note (short form) - Note Progress Note: s: no chest pain, palps, dizziness, dyspnea Current Medications Generic Name Dose Route Start Last Admin Trade Name Freq PRN Reason Stop Dose Admin Albuterol/Ipratropium 1 amp 09/13/19 16:00 09/16/19 07:40 Duoneb - NEB Not Given RQID ALDO Calcium Carbonate/Cholecalciferol 1 tab 09/13/19 17:30 09/16/19 09:37 Os-Sergey 500+D - PO 1 tab DAILY ALDO Administration Furosemide 80 mg 09/15/19 10:00 09/16/19 09:37 Lasix - PO 80 mg DAILY ALDO Administration Hydralazine HCl 50 mg 09/13/19 22:00 09/16/19 09:37 Apresoline - PO 50 mg BID ALDO Administration Insulin Aspart 1 vial 09/14/19 16:30 09/16/19 07:03 Novolog Vial Sliding Scale - SQ Not Given TIDAC [facility] [place] Protocol Melatonin 5 mg 09/14/19 00:40 09/15/19 21:55 Melatonin PO 5 mg HS PRN Administration INSOMNIA Metoprolol Tartrate 50 mg 09/14/19 11:00 09/16/19 09:37 Lopressor - PO 50 mg BID ALDO Administration Pancrelipase 1 cap 09/16/19 12:00 Diana Wang 36,000 Units Capsule PO TIDCM [facility] Rifaximin 550 mg 09/16/19 10:00 09/16/19 10:27 Xifaxan - PO 550 mg BID ALDO Administration Sitagliptin Phosphate 25 mg 09/15/19 07:00 09/16/19 07:04 Januvia - PO 25 mg DAILY@0700 ALDO Administration Sodium Bicarbonate 1,300 mg 09/14/19 22:00 09/16/19 07:04 Sodium Bicarbonate - PO 1,300 mg TID ALDO Administration Sodium Zirconium Cyclosilicate 10 gm 09/14/19 16:30 09/15/19 09:49 Lokelma PO 10 gm DAILY ALDO Administration Vital Signs Period Temp Pulse Resp BP Sys/Padron Pulse Ox Last 24 Hr 97.8 F-98.7 F 63-74 16-18 143-151/61-93 96 Constitutional: Yes: Well Nourished, No Distress Eyes: No: Sclera Icterus Respiratory: Yes: CTA Bilaterally. No: Accessory Muscle Use, Rales, Wheezes Gastrointestinal: Yes: Normal Bowel Sounds. No: Distention, Hepatomegaly, Palpable Mass, Tenderness Cardiovascular: Yes: Regular Rate and Rhythm JVD: No Carotid Bruit: No PMI: Non-Displaced Heart Sounds: Yes: S1, S2. No: Gallop Murmur: No: Systolic Murmur, Diastolic Murmur Extremities: No: Cold, Cyanosis Edema: No Peripheral Pulses: 2+ Left Carotid, 2+ Right Carotid, 2+ Left Doralis Pedis, 2+ Right Dorsalis Pedis Integumentary: No: Jaundice Neurological: Yes: Alert, Oriented (x3) Psychiatric: No: Agitated CBC, BMP 09/16/19 11:11 Assessment/Plan Echo 08/03: mod LVE, mod decr EF (global). nl RV. mild-mod MR, mod TR. RVSP 45. LHC 06/29: nl EDP; EF 40% (global); 50-60% OM1 (normal FFR); mild dz others MIBI 06/29 (pers): no STs; moder, partly rev defect AW c/w ischemia; mild LVE, mild-mod global LV hypo (40% EF); MILD TID MIBI 08/27 (pers): no ST change; TDS perfusion b/c of GI artifact and gating artifact; mild LV dilation and mild decr EFvisually (no TID) CXR: cardiomegaly, no congestion echo 05/2018 LV mildly dilated, borderline reduced LV function, grade II diastolic dysfunction, elevated filling pressures, LA mildly dilated, mild MAC, mild MR, mod TR, PASP at least 59 mmHg, no effusion EKG: sinus, nl intervals, no ischemic changes echo 08/2019 mild global hypokinesis EF 45%, RV nl, RA mod dilated, tr-mild MR, mod TR, RVSP at least 55 mmHg, severe pulm HTN tele: sinus, artifact ASSESSMENT/PLAN 63 yo smoker with h/o systolic cardiomyopathy, non-obstructive cad, HTN, HL, pHTN, PAD, mod PARVEZ on cpap, CKD (cr 1.8 - 2.2), DM, h/o GIB s/p cauterization of avm's, breast cancer p/w abnormal labs LYSSA, hyperkalemia - improved with lokelma - lasix per renal elevated trop - likely demand in setting of LYSSA, no signs ACS - echo mildly reduced LV function chronic systolic CHF: -borderline reduced LV function 2018, on lasix at home - BNP >79177 in setting of LYSSA - cont lasix, restarted PO 80 mg daily - echo as above - not on EVELINA/ARB due to recurrent severe hyperkalemia - cont bb anemia: - heme consulted Chronic ischemic heart disease: - nonobstrucive OM dz inc FFR negative, no history of angina -continue statin - no asa - hx anemia Essential hypertension: -cont hydralazine Chronic obstructive pulmonary disease -STABLE ON BB LONG TIME -no current sx's Obstructive sleep apnea -USES CPAP AT HOME breast ca -manage per heme/onc PAD: - known h/o obstructive RLE disease, claudication--deferred [employer] perviously due to risks of contrast nephropathy cardiac kern stable
[2019-09-16 12:07] LABS: CALCIUM 7.7 mg/dL (8.5-10.1); CREATININE 4.1 mg/dL (0.55-1.3); PHOSPHOROUS 7.2 mg/dL (2.5-4.9); POTASSIUM 5.1 mmol/L (3.5-5.1)
[2019-09-16] MEDS: LIPASE/PROTEASE/AMYLASE 36,000 UNIT CAPSULE PO SCH ×2 (12:07→17:25)
[2019-09-16 12:11] LABS: BLOOD UREA NITROGEN 129.4 mg/dL (7-18)
--- NOTE | 2019-09-16 12:16 | PN ---
Progress Note (short form) - Note Progress Note: Breathing is improving. Less SOB. No CP. No acute events overnight. Intake & Output 09/13/19 09/14/19 09/15/19 09/16/19 23:59 23:59 23:59 23:59 Intake Total 840 1590 Balance 840 1590 Weight 192 lb 3.2 oz 192 lb Last Vital Signs Temp Pulse Resp BP Pulse Ox 98.2 F 69 16 149/75 96 09/16/19 08:46 09/16/19 08:46 09/16/19 08:46 09/16/19 08:46 09/16/19 10:00 Active Medications Albuterol/Ipratropium (Duoneb -) 1 amp NEB RQID [facility] Last Admin: 09/16/19 07:40 Dose: Not Given Calcium Carbonate/Cholecalciferol (Os-Sergey 500+D -) 1 tab PO DAILY [facility] Last Admin: 09/16/19 09:37 Dose: 1 tab Furosemide (Lasix -) 80 mg PO DAILY [facility] Last Admin: 09/16/19 09:37 Dose: 80 mg Hydralazine HCl (Apresoline -) 50 mg PO BID [facility] Last Admin: 09/16/19 09:37 Dose: 50 mg Insulin Aspart (Novolog Vial Sliding Scale -) 1 vial SQ TIDAC [facility]; Protocol Last Admin: 09/16/19 12:08 Dose: Not Given Melatonin (Melatonin) 5 mg PO HS PRN PRN Reason: INSOMNIA Last Admin: 09/15/19 21:55 Dose: 5 mg Metoprolol Tartrate (Lopressor -) 50 mg PO BID [facility] Last Admin: 09/16/19 09:37 Dose: 50 mg Pancrelipase (Creon Dr 36,000 Units Capsule) 1 cap PO TIDCM [facility] Last Admin: 09/16/19 12:07 Dose: 1 cap Rifaximin (Xifaxan -) 550 mg PO BID [facility] Last Admin: 09/16/19 10:27 Dose: 550 mg Sitagliptin Phosphate (Januvia -) 25 mg PO DAILY@0700 [facility] Last Admin: 09/16/19 07:04 Dose: 25 mg Sodium Bicarbonate (Sodium Bicarbonate -) 1,300 mg PO TID [facility] Last Admin: 09/16/19 07:04 Dose: 1,300 mg Sodium Zirconium Cyclosilicate (Lokelma) 10 gm PO DAILY [facility] Last Admin: 09/15/19 09:49 Dose: 10 gm Constitutional: Yes: NAD Eyes: Yes: WNL HENT: Yes: WNL Neck: Yes: WNL Cardiovascular: Yes: Regular Rate and Rhythm, S1, S2 Respiratory: Yes: Diminished at the bases Gastrointestinal: Yes: Normal Bowel Sounds, Soft Extremities: Yes: WNL Edema: No Labs: Laboratory Results - last 24 hr 09/15/19 09/15/19 09/15/19 05:35 05:35 17:02 WBC RBC Hgb Hct MCV MCH MCHC RDW Plt Count MPV Absolute Neuts (auto) Neutrophils % Lymphocytes % Monocytes % Eosinophils % Basophils % Nucleated RBC % Sodium Potassium Chloride Carbon Dioxide Anion Gap BUN Creatinine Est GFR (CKD-EPI)AfAm Est GFR (CKD-EPI)NonAf POC Glucometer 114 Random Glucose Calcium Phosphorus Magnesium Hep A IgM Ab Confirm Negative Hepatitis A Ab Total Positive H Hep B Core Ab Interpret Negative 09/15/19 09/16/19 09/16/19 22:00 07:02 11:11 WBC 4.7 RBC 2.64 L Hgb 7.9 L Hct 25.0 L MCV 94.9 MCH 29.9 MCHC 31.5 L RDW 18.5 H Plt Count 172 MPV 8.5 Absolute Neuts (auto) 3.6 Neutrophils % 76.8 Lymphocytes % 5.7 L D Monocytes % 15.9 H Eosinophils % 1.4 Basophils % 0.2 Nucleated RBC % 0 Sodium Potassium Chloride Carbon Dioxide Anion Gap BUN Creatinine Est GFR (CKD-EPI)AfAm Est GFR (CKD-EPI)NonAf POC Glucometer 120 118 Random Glucose Calcium Phosphorus Magnesium Hep A IgM Ab Confirm Hepatitis A Ab Total Hep B Core Ab Interpret 09/16/19 09/16/19 11:11 12:05 WBC RBC Hgb Hct MCV MCH MCHC RDW Plt Count MPV Absolute Neuts (auto) Neutrophils % Lymphocytes % Monocytes % Eosinophils % Basophils % Nucleated RBC % Sodium 142 Potassium 5.1 Chloride 112 H Carbon Dioxide 21 Anion Gap 10 BUN 129.4 H* Creatinine 4.1 H Est GFR (CKD-EPI)AfAm 12.61 Est GFR (CKD-EPI)NonAf 10.88 POC Glucometer 129 Random Glucose 110 H Calcium 7.7 L Phosphorus 7.2 H Magnesium 2.0 Hep A IgM Ab Confirm Hepatitis A Ab Total Hep B Core Ab Interpret Problem List - Problems (1) Acute on chronic systolic (congestive) heart failure Code(s): I50.23 - ACUTE ON CHRONIC SYSTOLIC (CONGESTIVE) HEART FAILURE (2) Acute on chronic systolic (congestive) heart failure Code(s): I50.23 - ACUTE ON CHRONIC SYSTOLIC (CONGESTIVE) HEART FAILURE (3) Anemia Code(s): D64.9 - ANEMIA, UNSPECIFIED (4) Acute hyperkalemia Code(s): E87.5 - HYPERKALEMIA (5) Benign hypertension Code(s): I10 - ESSENTIAL (PRIMARY) HYPERTENSION (6) CAD (coronary artery disease) Code(s): I25.10 - ATHSCL HEART DISEASE OF [place] CORONARY ARTERY W/O ANG PCTRS Qualifiers: Coronary Disease-Associated Artery/Lesion type: [place] coronary artery Associated angina: with other forms of angina pectoris (7) CKD (chronic kidney disease) Code(s): N18.9 - CHRONIC KIDNEY DISEASE, UNSPECIFIED Qualifiers: Chronic kidney disease stage: unspecified stage Qualified Code(s): N18.9 - Chronic kidney disease, unspecified (8) Controlled type 2 diabetes mellitus with diabetic peripheral angiopathy without gangrene Code(s): E11.51 - TYPE 2 DIABETES W DIABETIC PERIPHERAL ANGIOPATH W/O GANGRENE (9) Edema Code(s): R60.9 - EDEMA, UNSPECIFIED Qualifiers: Edema type: generalized Qualified Code(s): R60.1 - Generalized edema (10) HTN (hypertension) Code(s): I10 - ESSENTIAL (PRIMARY) HYPERTENSION (11) Hyperkalemia Code(s): E87.5 - HYPERKALEMIA (12) Nausea Code(s): R11.0 - NAUSEA (13) PARVEZ on CPAP Code(s): G47.33 - OBSTRUCTIVE SLEEP APNEA (ADULT) (PEDIATRIC) (14) PVD (peripheral vascular disease) Code(s): I73.9 - PERIPHERAL VASCULAR DISEASE, UNSPECIFIED (15) Pulmonary hypertension Code(s): I27.2 - OTHER SECONDARY PULMONARY HYPERTENSION * DO NOT USE * (16) SOB (shortness of breath) Code(s): R06.02 - SHORTNESS OF BREATH (17) Sleep apnea, obstructive Code(s): G47.33 - OBSTRUCTIVE SLEEP APNEA (ADULT) (PEDIATRIC) (18) Smoker Code(s): F17.200 - NICOTINE DEPENDENCE, UNSPECIFIED, UNCOMPLICATED (19) Smoker unmotivated to quit Code(s): F17.210 - NICOTINE DEPENDENCE, CIGARETTES, UNCOMPLICATED (20) Weakness Code(s): R53.1 - WEAKNESS Assessment/Plan IMP DYSPNEA IMPROVING ACUTE ON CHRONIC SYSTOLIC CHF PULMONARY HTN ASHD ACUTE ON CHRONIC KIDNEY FAILURE HYPERKALEMIA PARVEZ PT NON-COMPLIANT WITH CPAP COPD SMOKER ANEMIA HTN HLD DM H/O GIB NAUSEA H/O BREAST CA PLAN LASIX PER RENAL O2 INHALED BRONCHODILATORS MONITOR LYTES ,RENAL FUNCTION MONITOR H+H NORMAL TRANSFUSION THRESHOLD SMOKING CESSATION COUNSELED DAILY WTS Dr Rasmussen
[2019-09-16] MEDS: SODIUM ZIRCONIUM CYCLOSILICATE (LOKELMA) 5 GM PACKET PO SCH (12:43)
--- NOTE | 2019-09-16 14:19 | PN ---
Progress Note, Physician Chief Complaint: patient seen and examined patient ambulating with walker - Current Medication List Current Medications: Active Medications Albuterol/Ipratropium (Duoneb -) 1 amp NEB RQID [facility] Last Admin: 09/16/19 11:35 Dose: Not Given Calcium Acetate (Phoslo -) 667 mg PO TIDCM [facility] Calcium Carbonate/Cholecalciferol (Os-Sergey 500+D -) 1 tab PO DAILY [facility] Last Admin: 09/16/19 09:37 Dose: 1 tab Furosemide (Lasix -) 80 mg PO DAILY [facility] Last Admin: 09/16/19 09:37 Dose: 80 mg Hydralazine HCl (Apresoline -) 50 mg PO BID [facility] Last Admin: 09/16/19 09:37 Dose: 50 mg Insulin Aspart (Novolog Vial Sliding Scale -) 1 vial SQ TIDAC [facility]; Protocol Last Admin: 09/16/19 12:08 Dose: Not Given Melatonin (Melatonin) 5 mg PO HS PRN PRN Reason: INSOMNIA Last Admin: 09/15/19 21:55 Dose: 5 mg Metoprolol Tartrate (Lopressor -) 50 mg PO BID [facility] Last Admin: 09/16/19 09:37 Dose: 50 mg Pancrelipase (Creon Dr 36,000 Units Capsule) 1 cap PO TIDCM [facility] Last Admin: 09/16/19 12:07 Dose: 1 cap Rifaximin (Xifaxan -) 550 mg PO BID [facility] Last Admin: 09/16/19 10:27 Dose: 550 mg Sitagliptin Phosphate (Januvia -) 25 mg PO DAILY@0700 [facility] Last Admin: 09/16/19 07:04 Dose: 25 mg Sodium Bicarbonate (Sodium Bicarbonate -) 1,300 mg PO TID [facility] Last Admin: 09/16/19 07:04 Dose: 1,300 mg Sodium Zirconium Cyclosilicate (Lokelma) 10 gm PO DAILY [facility] Last Admin: 09/16/19 12:43 Dose: 10 gm - Objective Vital Signs: Vital Signs Temperature 98.2 F 09/16/19 08:46 Pulse Rate 69 09/16/19 08:46 Respiratory Rate 16 09/16/19 08:46 Blood Pressure 149/75 09/16/19 08:46 O2 Sat by Pulse Oximetry (%) 96 09/16/19 10:00 Constitutional: Yes: Calm Cardiovascular: Yes: Regular Rate and Rhythm, S1, S2 Respiratory: Yes: CTA Bilaterally Gastrointestinal: Yes: Normal Bowel Sounds, Soft Neurological: Yes: Alert, Oriented Labs: CBC, BMP 09/16/19 11:11 09/16/19 11:11 INR, PTT INR 1.23 (0.83-1.09) H 09/14/19 05:27 Problem List - Problems (1) Acute hyperkalemia Assessment/Plan: repeat labs noted patient refusing HD andPD does not want eopgen lokelma and sodium bicarbonate telemetry ekg Code(s): E87.5 - HYPERKALEMIA (2) Anemia Assessment/Plan: patient does not want epogen Code(s): D64.9 - ANEMIA, UNSPECIFIED (3) CKD (chronic kidney disease) Assessment/Plan: worsening renal function creatine 4.1 worsening bun doesnot want HD or PD Code(s): N18.9 - CHRONIC KIDNEY DISEASE, UNSPECIFIED Qualifiers: Chronic kidney disease stage: unspecified stage Qualified Code(s): N18.9 - Chronic kidney disease, unspecified (4) Elevated troponin Assessment/Plan: secondary to demand ischemia due to LYSSA echo mildly reduced LV fucntion cardiology on board Code(s): R79.89 - OTHER SPECIFIED ABNORMAL FINDINGS OF BLOOD CHEMISTRY (5) COPD (chronic obstructive pulmonary disease) Assessment/Plan: pulm bronchodilators Code(s): J44.9 - CHRONIC OBSTRUCTIVE PULMONARY DISEASE, UNSPECIFIED
[2019-09-16] MEDS: CALCIUM ACETATE 667 MG CAPSULE (FP) PO SCH (17:25)
[2019-09-16] MEDS: MELATONIN 5 MG TABLETS PO PRN (22:33)
[2019-09-17] MEDS: SODIUM BICARBONATE 650 MG TABLET PO SCH ×3 (06:34→22:39)
[2019-09-17] MEDS: INSULIN SLIDING SCALE (NOVOLOG) 1 VIAL SQ SCH ×3 (06:35→17:22)
[2019-09-17] MEDS: ALBUTEROL SO4 2.5/IPRATROPIUM 0.5 INH SOL 3 ML VIAL.NEB. NEB SCH ×4 (07:25→19:45)
[2019-09-17 08:11] LABS: BASO % 0.3 % (0-2.0); HEMOGLOBIN 7.7 GM/dL (10.7-15.3); LYMPH % 6.7 % (8-40); MCH 31.7 pg (25.7-33.7); MCHC 33.4 g/dl (32.0-36.0); MEAN CELL VOLUME 94.7 fl (80-96); MEAN PLT VOLUME 9.3 fl (7.5-11.1); MONO % 16.6 % (3.8-10.2); NEUT % 74.4 % (42.8-82.8); PLATELET COUNT 165 K/MM3 (134-434); RBC 2.43 M/mm3 (3.60-5.2); RDW 17.8 % (11.6-15.6); WHITE BLOOD COUNT 5.1 K/mm3 (4.0-10.0)
--- NOTE | 2019-09-17 08:30 | PN.GI ---
GI Progress Note Subjective: Patient complain of nausea and vomiting with clear contents, denies abdominal pain. Denies diarrhea, constipation, rectal bleeding, or melena. - Objective Vital Signs: Vital Signs Temperature 98.2 F 09/17/19 06:00 Pulse Rate 64 09/17/19 06:00 Respiratory Rate 18 09/17/19 06:00 Blood Pressure 146/75 09/17/19 06:00 O2 Sat by Pulse Oximetry (%) 94 L 09/16/19 21:00 Constitutional: No Distress, Calm Eyes: Yes: Conjunctiva Clear HENT: Yes: Atraumatic Cardiovascular: Yes: Regular Rate and Rhythm Respiratory: Yes: Regular, CTA Bilaterally Gastrointestinal Inspection: Yes: WNL. No: Ascites, Distention, Hernia, Scars, Other ...Auscultate: Yes: Normoactive Bowel Sounds. No: Hyperactive Bowel Sounds, Hypoactive Bowel Sounds, No Bowel Sounds, Other ...Palpate: Yes: Soft. No: Firm/Rigid, Guarding, Hepatomegaly, Mass, Pulsatile Mass, Splenomegaly, Tenderness, Tenderness, Epigastium, Tenderness, Rebound, Other ...Percussion: Yes: Tympanitic. No: Dullness, Fluid Wave, Other Neurological: Yes: Alert, Oriented Psychiatric: Yes: Alert, Oriented Labs: INR, PTT INR 1.23 (0.83-1.09) H 09/14/19 05:27 Active Medications Generic Name Dose Route Start Last Admin Trade Name Freq PRN Reason Stop Dose Admin Albuterol/Ipratropium 1 amp 09/13/19 16:00 09/16/19 20:00 Duoneb - NEB 1 amp RQID ALDO Administration Calcium Acetate 667 mg 09/16/19 17:30 09/16/19 17:25 Phoslo - PO 667 mg TIDCM ALDO Administration Calcium Carbonate/Cholecalciferol 1 tab 09/13/19 17:30 09/16/19 09:37 Os-Sergey 500+D - PO 1 tab DAILY ALDO Administration Furosemide 80 mg 09/15/19 10:00 09/16/19 09:37 Lasix - PO 80 mg DAILY ALDO Administration Hydralazine HCl 50 mg 09/13/19 22:00 09/16/19 21:30 Apresoline - PO 50 mg BID ALDO Administration Insulin Aspart 1 vial 09/14/19 16:30 09/17/19 06:35 Novolog Vial Sliding Scale - SQ Not Given TIDAC [facility] Protocol Melatonin 5 mg 09/14/19 00:40 09/16/19 22:33 Melatonin PO 5 mg HS PRN Administration INSOMNIA Metoprolol Tartrate 50 mg 09/14/19 11:00 09/16/19 21:30 Lopressor - PO 50 mg BID ALDO Administration Pancrelipase 1 cap 09/16/19 12:00 09/16/19 17:[address] 36,000 Units Capsule PO 1 cap TIDCM ALDO Administration Rifaximin 550 mg 09/17/19 14:00 Xifaxan - PO TID ALDO Sitagliptin Phosphate 25 mg 09/15/19 07:00 09/17/19 06:34 Januvia - PO 25 mg DAILY@0700 ALDO Administration Sodium Bicarbonate 1,300 mg 09/14/19 22:00 09/17/19 06:34 Sodium Bicarbonate - PO 1,300 mg TID ALDO Administration Sodium Zirconium Cyclosilicate 10 gm 09/14/19 16:30 09/16/19 12:43 Lokelma PO 10 gm DAILY ALDO Administration Problem List - Problems (1) Abdominal pain Assessment/Plan: >Xifaxin and Creon >Liver US shows multiple gallstones with wall thickening and without evidence of pericholecystic free fluid Code(s): R10.9 - UNSPECIFIED ABDOMINAL PAIN (2) Gastroparesis Code(s): K31.84 - GASTROPARESIS (3) Transaminitis Assessment/Plan: >Liver US shows hepatomegaly with slightly coarse echotexture >Alk Phos showing downtrend ~225 >GGT and chronic liver work up pending Code(s): R74.0 - NONSPEC ELEV OF LEVELS OF TRANSAMNS & LACTIC ACID DEHYDRGNSE (4) Nausea Assessment/Plan: >due to prolong QT unable to give zofran or reglan Code(s): R11.0 - NAUSEA
[2019-09-17 08:42] LABS: ALBUMIN 3.4 g/dl (3.4-5.0); BILIRUBIN,TOTAL 0.5 mg/dL (0.2-1); CALCIUM 7.3 mg/dL (8.5-10.1); CREATININE 4.3 mg/dL (0.55-1.3); POTASSIUM 5.1 mmol/L (3.5-5.1); TOT PROT 6.7 g/dl (6.4-8.2)
[2019-09-17 08:44] LABS: BLOOD UREA NITROGEN 119.9 mg/dL (7-18)
[2019-09-17] MEDS ORDERED: PT OWN MED DRAWER 7, Y5N ONE ×3 (08:54→17:12)
[2019-09-17] MEDS ORDERED: SIMETHICONE 80 MG TAB.CHEW (FP) PO PRN (08:57)
[2019-09-17] MEDS: CALCIUM ACETATE 667 MG CAPSULE (FP) PO SCH ×3 (08:58→17:59)
[2019-09-17] MEDS: LIPASE/PROTEASE/AMYLASE 36,000 UNIT CAPSULE PO SCH ×3 (08:59→17:58)
--- NOTE | 2019-09-17 09:28 | PN ---
Progress Note, Physician Chief Complaint: sitting in chair; no acute distress TELE: NSR Denies CP, SOB, dizziness - Current Medication List Current Medications: Active Medications Albuterol/Ipratropium (Duoneb -) 1 amp NEB RQID [facility] Last Admin: 09/16/19 20:00 Dose: 1 amp Calcium Acetate (Phoslo -) 667 mg PO TIDCM [facility] Last Admin: 09/17/19 08:58 Dose: 667 mg Calcium Carbonate/Cholecalciferol (Os-Sergey 500+D -) 1 tab PO DAILY [facility] Last Admin: 09/16/19 09:37 Dose: 1 tab Famotidine (Pepcid -) 20 mg PO DAILY [facility] Furosemide (Lasix -) 80 mg PO DAILY [facility] Last Admin: 09/16/19 09:37 Dose: 80 mg Hydralazine HCl (Apresoline -) 50 mg PO BID [facility] Last Admin: 09/16/19 21:30 Dose: 50 mg Insulin Aspart (Novolog Vial Sliding Scale -) 1 vial SQ TIDAC [facility]; Protocol Last Admin: 09/17/19 06:35 Dose: Not Given Melatonin (Melatonin) 5 mg PO HS PRN PRN Reason: INSOMNIA Last Admin: 09/16/19 22:33 Dose: 5 mg Metoprolol Tartrate (Lopressor -) 50 mg PO BID [facility] Last Admin: 09/16/19 21:30 Dose: 50 mg Pancrelipase (Creon Dr 36,000 Units Capsule) 1 cap PO TIDCM [facility] Last Admin: 09/17/19 08:59 Dose: 1 cap Rifaximin (Xifaxan -) 550 mg PO TID [facility] Simethicone (Mylicon -) 80 mg PO QID PRN PRN Reason: GAS Sitagliptin Phosphate (Januvia -) 25 mg PO DAILY@0700 [facility] Last Admin: 09/17/19 06:34 Dose: 25 mg Sodium Bicarbonate (Sodium Bicarbonate -) 1,300 mg PO TID [facility] Last Admin: 09/17/19 06:34 Dose: 1,300 mg Sodium Zirconium Cyclosilicate (Lokelma) 10 gm PO DAILY [facility] Last Admin: 09/16/19 12:43 Dose: 10 gm - Objective Vital Signs: Vital Signs Temperature 98.8 F 09/17/19 09:05 Pulse Rate 68 09/17/19 09:05 Respiratory Rate 18 09/17/19 09:05 Blood Pressure 160/71 09/17/19 09:05 O2 Sat by Pulse Oximetry (%) 94 L 09/16/19 21:00 Constitutional: Yes: No Distress, Calm Eyes: Yes: Conjunctiva Clear Cardiovascular: Yes: Regular Rate and Rhythm Respiratory: Yes: CTA Bilaterally (no rales) Gastrointestinal: Yes: Soft Edema: No Neurological: Yes: Alert, Oriented Labs: CBC, BMP 09/17/19 05:20 09/17/19 05:20 INR, PTT INR 1.23 (0.83-1.09) H 09/14/19 05:27 - ....Imaging EKG: Image Reviewed Assessment/Plan DATA Echo 08/03: mod LVE, mod decr EF (global). nl RV. mild-mod MR, mod TR. RVSP 45. LHC 06/29: nl EDP; EF 40% (global); 50-60% OM1 (normal FFR); mild dz others MIBI 06/29 (pers): no STs; moder, partly rev defect AW c/w ischemia; mild LVE, mild-mod global LV hypo (40% EF); MILD TID MIBI 08/27 (pers): no ST change; TDS perfusion b/c of GI artifact and gating artifact; mild LV dilation and mild decr EFvisually (no TID) CXR: cardiomegaly, no congestion echo 05/2018 LV mildly dilated, borderline reduced LV function, grade II diastolic dysfunction, elevated filling pressures, LA mildly dilated, mild MAC, mild MR, mod TR, PASP at least 59 mmHg, no effusion EKG: sinus, nl intervals, no ischemic changes echo 08/2019 mild global hypokinesis EF 45%, RV nl, RA mod dilated, tr-mild MR, mod TR, RVSP at least 55 mmHg, severe pulm HTN tele: sinus, artifact ASSESSMENT/PLAN 63 yo smoker with h/o systolic cardiomyopathy, non-obstructive cad, HTN, HL, pHTN, PAD, mod PARVEZ on cpap, CKD (cr 1.8 - 2.2), DM, h/o GIB s/p cauterization of avm's, breast cancer p/w abnormal labs YLSSA, hyperkalemia: - improved with lokelma - lasix per renal elevated trop: - likely demand in setting of LYSSA, no signs ACS - echo mildly reduced LV function chronic systolic CHF: -borderline reduced LV function 2018, on lasix at home - BNP >87405 in setting of LYSSA - cont lasix, restarted PO 80 mg daily - echo as above - not on EVELINA/ARB due to recurrent severe hyperkalemia - cont bb anemia: - heme consulted Chronic ischemic heart disease: - nonobstrucive OM dz inc FFR negative, no history of angina -continue statin - no asa - hx anemia Essential hypertension: -cont hydralazine Chronic obstructive pulmonary disease -STABLE ON BB LONG TIME -no current sx's Obstructive sleep apnea -USES CPAP AT HOME breast ca -manage per heme/onc PAD: - known h/o obstructive RLE disease, claudication--deferred [place] SMOOTHER perviously due to risks of contrast nephropathy cardiac kern remains stable
[2019-09-17] MEDS: METOPROLOL TARTRATE 50 MG TABLET (FP) PO SCH ×2 (10:13→22:39)
[2019-09-17] MEDS: CALCIUM 500MG/VIT-D 200 UNITS COMBO TABLET (FP) PO SCH (10:14)
[2019-09-17] MEDS: FUROSEMIDE 40 MG TABLET (FP) PO SCH (10:14)
[2019-09-17] MEDS: hydrALAZINE HCL 25 MG TABLET (FP) PO SCH ×2 (10:14→22:39)
[2019-09-17] MEDS: FAMOTIDINE 20 MG TABLET PO SCH (10:14)
[2019-09-17] MEDS ORDERED: SODIUM CHLORIDE 250 ML IV PRN (10:15)
--- NOTE | 2019-09-17 10:15 | PN ---
Progress Note (short form) - Note Progress Note: RENAL Pt awake and alert c/o nausea which is very limiting. She is willing to be dialyzed to take care of this. Last Vital Signs Temp Pulse Resp BP Pulse Ox 98.8 F 68 18 160/71 94 L 09/17/19 09:05 09/17/19 09:05 09/17/19 09:05 09/17/19 09:05 09/16/19 21:00 lungs clear cvs s1s2 rr no rub abd soft ext no edema neuro a+ox3 no asterixis noted CBC, BMP 09/17/19 05:20 09/17/19 05:20 Current Medications Generic Name Dose Route Start Last Admin Trade Name Freq PRN Reason Stop Dose Admin Albuterol/Ipratropium 1 amp 09/13/19 16:00 09/17/19 07:25 Duoneb - NEB 1 amp RQID ALDO Administration Calcium Acetate 667 mg 09/16/19 17:30 09/17/19 08:58 Phoslo - PO 667 mg TIDCM ALDO Administration Calcium Carbonate/Cholecalciferol 1 tab 09/13/19 17:30 09/16/19 09:37 Os-Sergey 500+D - PO 1 tab DAILY ALDO Administration Famotidine 20 mg 09/17/19 10:00 Pepcid - PO DAILY ALDO Furosemide 80 mg 09/15/19 10:00 09/16/19 09:37 Lasix - PO 80 mg DAILY ALDO Administration Hydralazine HCl 50 mg 09/13/19 22:00 09/16/19 21:30 Apresoline - PO 50 mg BID ALDO Administration Insulin Aspart 1 vial 09/14/19 16:30 09/17/19 06:35 Novolog Vial Sliding Scale - SQ Not Given TIDAC ALDO Protocol Melatonin 5 mg 09/14/19 00:40 09/16/19 22:33 Melatonin PO 5 mg HS PRN Administration INSOMNIA Metoprolol Tartrate 50 mg 09/14/19 11:00 09/16/19 21:30 Lopressor - PO 50 mg BID ALDO Administration Pancrelipase 1 cap 09/16/19 12:00 09/17/19 08:[address] 36,000 Units Capsule PO 1 cap TIDCM [facility]DO Administration Rifaximin 550 mg 09/17/19 14:00 Xifaxan - PO TID ALDO Simethicone 80 mg 09/17/19 08:57 Mylicon - PO QID PRN GAS Sitagliptin Phosphate 25 mg 09/15/19 07:00 09/17/19 06:34 Januvia - PO 25 mg DAILY@0700 ALDO Administration Sodium Bicarbonate 1,300 mg 09/14/19 22:00 09/17/19 06:34 Sodium Bicarbonate - PO 1,300 mg TID ALDO Administration Sodium Zirconium Cyclosilicate 10 gm 09/14/19 16:30 09/16/19 12:43 Lokelma PO 10 gm DAILY ALDO Administration Impression 1. CKD 2. anemia 3. CHF 4. HTN 5. DM 6. hyperlipidemia 7. anxiety 8. uterine cancer 9. hx GI bleed 10. COPD 11. breast cancer 12. hyperkalemia 13. nausea can be a uremic symptom but obviously can be from other reasons Plan -she has agreed to get a trial of hemodialysis. I explained to her that her nasuea may improve but her neuropathy may no -renal diet -I called Dr Churchill to insert catheter - will order hd for today -once dialysis is initiated can hold lasix,lokelma, and bicarb tabs MV
--- NOTE | 2019-09-17 11:26 | PN ---
Progress Note (short form) - Note Progress Note: PULMONARY LYING SUPINE/USING NEB NIPPV HAS NOT BEEN ORDERED YET VSS/AFEBRILE Constitutional: Yes: NAD Eyes: Yes: WNL HENT: Yes: WNL Neck: Yes: WNL Cardiovascular: Yes: Regular Rate and Rhythm, S1, S2 Respiratory: Yes: Diminished at the bases Gastrointestinal: Yes: Normal Bowel Sounds, Soft Extremities: Yes: WNL Edema: No Labs:NOTED Problem List - Problems (1) Acute on chronic systolic (congestive) heart failure Code(s): I50.23 - ACUTE ON CHRONIC SYSTOLIC (CONGESTIVE) HEART FAILURE (2) Acute on chronic systolic (congestive) heart failure Code(s): I50.23 - ACUTE ON CHRONIC SYSTOLIC (CONGESTIVE) HEART FAILURE (3) Anemia Code(s): D64.9 - ANEMIA, UNSPECIFIED (4) Acute hyperkalemia Code(s): E87.5 - HYPERKALEMIA (5) Benign hypertension Code(s): I10 - ESSENTIAL (PRIMARY) HYPERTENSION (6) CAD (coronary artery disease) Code(s): I25.10 - ATHSCL HEART DISEASE OF [place] CORONARY ARTERY W/O ANG PCTRS Qualifiers: Coronary Disease-Associated Artery/Lesion type: [place] coronary artery Associated angina: with other forms of angina pectoris (7) CKD (chronic kidney disease) Code(s): N18.9 - CHRONIC KIDNEY DISEASE, UNSPECIFIED Qualifiers: Chronic kidney disease stage: unspecified stage Qualified Code(s): N18.9 - Chronic kidney disease, unspecified (8) Controlled type 2 diabetes mellitus with diabetic peripheral angiopathy without gangrene Code(s): E11.51 - TYPE 2 DIABETES W DIABETIC PERIPHERAL ANGIOPATH W/O GANGRENE (9) Edema Code(s): R60.9 - EDEMA, UNSPECIFIED Qualifiers: Edema type: generalized Qualified Code(s): R60.1 - Generalized edema (10) HTN (hypertension) Code(s): I10 - ESSENTIAL (PRIMARY) HYPERTENSION (11) Hyperkalemia Code(s): E87.5 - HYPERKALEMIA (12) Nausea Code(s): R11.0 - NAUSEA (13) PARVEZ on CPAP Code(s): G47.33 - OBSTRUCTIVE SLEEP APNEA (ADULT) (PEDIATRIC) (14) PVD (peripheral vascular disease) Code(s): I73.9 - PERIPHERAL VASCULAR DISEASE, UNSPECIFIED (15) Pulmonary hypertension Code(s): I27.2 - OTHER SECONDARY PULMONARY HYPERTENSION * DO NOT USE * (16) SOB (shortness of breath) Code(s): R06.02 - SHORTNESS OF BREATH (17) Sleep apnea, obstructive Code(s): G47.33 - OBSTRUCTIVE SLEEP APNEA (ADULT) (PEDIATRIC) (18) Smoker Code(s): F17.200 - NICOTINE DEPENDENCE, UNSPECIFIED, UNCOMPLICATED (19) Smoker unmotivated to quit Code(s): F17.210 - NICOTINE DEPENDENCE, CIGARETTES, UNCOMPLICATED (20) Weakness Code(s): R53.1 - WEAKNESS Assessment/Plan IMP DYSPNEA IMPROVING ACUTE ON CHRONIC SYSTOLIC CHF PULMONARY HTN ASHD ACUTE ON CHRONIC KIDNEY FAILURE HYPERKALEMIA PARVEZ PT NON-COMPLIANT WITH CPAP COPD SMOKER ANEMIA HTN HLD DM H/O GIB NAUSEA H/O BREAST CA PLAN LASIX PER RENAL O2 INHALED BRONCHODILATORS MONITOR LYTES ,RENAL FUNCTION MONITOR H+H NORMAL TRANSFUSION THRESHOLD SMOKING CESSATION COUNSELED HAVE ORDERED CPAP Kevin FELIZ MD
--- NOTE | 2019-09-17 12:06 | PN ---
Progress Note, Physician Chief Complaint: patient is very nauseous and has now agreed to HD - Current Medication List Current Medications: Active Medications Albuterol/Ipratropium (Duoneb -) 1 amp NEB RQID [facility] Last Admin: 09/17/19 11:15 Dose: 1 amp Calcium Acetate (Phoslo -) 667 mg PO TIDCM [facility] Last Admin: 09/17/19 08:58 Dose: 667 mg Calcium Carbonate/Cholecalciferol (Os-Sergey 500+D -) 1 tab PO DAILY [facility] Last Admin: 09/17/19 10:14 Dose: 1 tab Famotidine (Pepcid -) 20 mg PO DAILY [facility] Last Admin: 09/17/19 10:14 Dose: 20 mg Furosemide (Lasix -) 80 mg PO DAILY [facility] Last Admin: 09/17/19 10:14 Dose: 80 mg Hydralazine HCl (Apresoline -) 50 mg PO BID [facility] Last Admin: 09/17/19 10:14 Dose: 50 mg Sodium Chloride (Normal Saline -) 250 mls @ 3,000 mls/hr IV PRN PRN PRN Reason: Hypotension during Dialysis Stop: 09/18/19 10:15 Insulin Aspart (Novolog Vial Sliding Scale -) 1 vial SQ TIDAC [facility]; Protocol Last Admin: 09/17/19 06:35 Dose: Not Given Melatonin (Melatonin) 5 mg PO HS PRN PRN Reason: INSOMNIA Last Admin: 09/16/19 22:33 Dose: 5 mg Metoprolol Tartrate (Lopressor -) 50 mg PO BID [facility] Last Admin: 09/17/19 10:13 Dose: 50 mg Pancrelipase (Creon Dr 36,000 Units Capsule) 1 cap PO TIDCM [facility] Last Admin: 09/17/19 08:59 Dose: 1 cap Rifaximin (Xifaxan -) 550 mg PO TID [facility] Simethicone (Mylicon -) 80 mg PO QID PRN PRN Reason: GAS Sitagliptin Phosphate (Januvia -) 25 mg PO DAILY@0700 [facility] Last Admin: 09/17/19 06:34 Dose: 25 mg Sodium Bicarbonate (Sodium Bicarbonate -) 1,300 mg PO TID [facility] Last Admin: 09/17/19 06:34 Dose: 1,300 mg Sodium Zirconium Cyclosilicate (Lokelma) 10 gm PO DAILY [facility] Last Admin: 09/16/19 12:43 Dose: 10 gm - Objective Vital Signs: Vital Signs Temperature 98.8 F 09/17/19 09:05 Pulse Rate 68 09/17/19 09:05 Respiratory Rate 18 09/17/19 09:05 Blood Pressure 160/71 09/17/19 09:05 O2 Sat by Pulse Oximetry (%) 94 L 09/16/19 21:00 Constitutional: Yes: Mild Distress Neck: Yes: Trachea Midline Cardiovascular: Yes: Regular Rate and Rhythm, S1, S2 Respiratory: Yes: Diminished Gastrointestinal: Yes: Normal Bowel Sounds, Soft Labs: CBC, BMP 09/17/19 05:20 09/17/19 05:20 INR, PTT INR 1.23 (0.83-1.09) H 09/14/19 05:27 Problem List - Problems (1) Nausea Assessment/Plan: with elevated bun/cr to get HD to get HD today that should help relief symptoms Code(s): R11.0 - NAUSEA (2) CKD (chronic kidney disease) Assessment/Plan: worsening renal function HD today dr estes to insert HD catheter Code(s): N18.9 - CHRONIC KIDNEY DISEASE, UNSPECIFIED Qualifiers: Chronic kidney disease stage: unspecified stage Qualified Code(s): N18.9 - Chronic kidney disease, unspecified (3) Acute hyperkalemia Assessment/Plan: repeat labs noted patient agrees to HD Code(s): E87.5 - HYPERKALEMIA (4) Anemia Assessment/Plan: patient does not want epogen Code(s): D64.9 - ANEMIA, UNSPECIFIED (5) Elevated troponin Assessment/Plan: secondary to demand ischemia due to LYSSA echo mildly reduced LV fucntion cardiology on board Code(s): R79.89 - OTHER SPECIFIED ABNORMAL FINDINGS OF BLOOD CHEMISTRY (6) COPD (chronic obstructive pulmonary disease) Assessment/Plan: sleep apnea needs bipap machine bronchodilators Code(s): J44.9 - CHRONIC OBSTRUCTIVE PULMONARY DISEASE, UNSPECIFIED
--- NOTE | 2019-09-17 12:27 | PROC ---
Central Line Insertion - Procedure Note TIME OUT performed prior to this procedure with verbal confirmation of correct patient identity, correct side, agreement of the procedure, correct patient position, availability of necessary equipment. The consent form is complete and accurate. Risk of possible infection, bleeding and pneumothorax have been discussed with the patient. Safety precautions based on patient history or medication use has been addressed. Indication: Other (Hemodialysis) Central Line: Triple Lumen Catheter Position: Supine Area prepped with Chlorhexidine solution then draped using sterile barrier protection. Anesthesia: Lidocaine 1% Technique used: Seldinger Ultrasound Guided Assistance: Yes Site: Right Internal Jugular Dark venous non-pulsatile flow noted from hub of needle. The catheter was introduced. Guide wire removed intact. Each port aspirated then flushed with sterile normal saline and capped. Line secured to skin with silk suture. Biopatch placed around base of line. Sterile occlusive dressing applied. No complications. Patient tolerated the procedure well. STAT chest xray ordered to confirm position and rule out pneumothorax Senior KRISTINA Nieves was present and assisted throughout entire procedure.
[2019-09-17] MEDS: SODIUM ZIRCONIUM CYCLOSILICATE (LOKELMA) 5 GM PACKET PO SCH (12:41)
[2019-09-17] MEDS: RIFAXIMIN 550 MG TABLET (UD) PO SCH ×2 (13:23→22:40)
[2019-09-17] MEDS: MELATONIN 5 MG TABLETS PO PRN (22:39)
[2019-09-18 02:07] LABS: FIBROSIS SCORE. 0.34 (0.00-0.21); HCV ALPHA 2 MACRO CHART 154 mg/dL (110-276); NECRO.INFLAM ACT.SCORE 0.07 (0.00-0.17); NECROINFLAM. ACTIVITY GRADE A0-No activity (.)
[2019-09-18] MEDS: SODIUM BICARBONATE 650 MG TABLET PO SCH (06:12)
[2019-09-18] MEDS: RIFAXIMIN 550 MG TABLET (UD) PO SCH ×3 (06:13→21:49)
[2019-09-18] MEDS: INSULIN SLIDING SCALE (NOVOLOG) 1 VIAL SQ SCH ×3 (06:13→17:35)
--- NOTE | 2019-09-18 06:36 | PN ---
Progress Note, Physician Chief Complaint: started HD Ambulating halls with walker Feels well: no cp, sob, palps - Current Medication List Current Medications: Active Medications Albuterol/Ipratropium (Duoneb -) 1 amp NEB RQID [facility] Last Admin: 09/17/19 19:45 Dose: 1 amp Calcium Acetate (Phoslo -) 667 mg PO TIDCM [facility] Last Admin: 09/17/19 17:59 Dose: 667 mg Calcium Carbonate/Cholecalciferol (Os-Sergey 500+D -) 1 tab PO DAILY [facility] Last Admin: 09/17/19 10:14 Dose: 1 tab Famotidine (Pepcid -) 20 mg PO DAILY [facility] Last Admin: 09/17/19 10:14 Dose: 20 mg Furosemide (Lasix -) 80 mg PO DAILY [facility] Last Admin: 09/17/19 10:14 Dose: 80 mg Hydralazine HCl (Apresoline -) 50 mg PO BID [facility] Last Admin: 09/17/19 22:39 Dose: 50 mg Sodium Chloride (Normal Saline -) 250 mls @ 3,000 mls/hr IV PRN PRN PRN Reason: Hypotension during Dialysis Stop: 09/18/19 10:15 Insulin Aspart (Novolog Vial Sliding Scale -) 1 vial SQ TIDAC [facility]; Protocol Last Admin: 09/18/19 06:13 Dose: Not Given Melatonin (Melatonin) 5 mg PO HS PRN PRN Reason: INSOMNIA Last Admin: 09/17/19 22:39 Dose: 5 mg Metoprolol Tartrate (Lopressor -) 50 mg PO BID [facility] Last Admin: 09/17/19 22:39 Dose: 50 mg Pancrelipase (Creon Dr 36,000 Units Capsule) 1 cap PO TIDCM [facility] Last Admin: 09/17/19 17:58 Dose: 1 cap Rifaximin (Xifaxan -) 550 mg PO TID [facility] Last Admin: 09/18/19 06:13 Dose: 550 mg Simethicone (Mylicon -) 80 mg PO QID PRN PRN Reason: GAS Sitagliptin Phosphate (Januvia -) 25 mg PO DAILY@0700 [facility] Last Admin: 09/18/19 06:12 Dose: 25 mg Sodium Bicarbonate (Sodium Bicarbonate -) 1,300 mg PO TID [facility] Last Admin: 09/18/19 06:12 Dose: 1,300 mg Sodium Zirconium Cyclosilicate (Lokelma) 10 gm PO DAILY [facility] Last Admin: 09/17/19 12:41 Dose: 10 gm - Objective Vital Signs: Vital Signs Temperature 98.3 F 09/18/19 06:00 Pulse Rate 69 09/18/19 06:00 Respiratory Rate 18 09/18/19 06:00 Blood Pressure 149/54 L 09/18/19 06:00 O2 Sat by Pulse Oximetry (%) 98 09/18/19 00:17 Constitutional: Yes: No Distress Cardiovascular: Yes: Regular Rate and Rhythm Respiratory: Yes: CTA Bilaterally Gastrointestinal: Yes: Soft Edema: No Neurological: Yes: Alert, Oriented Psychiatric: Yes: WNL Labs: CBC, BMP 09/17/19 05:20 09/17/19 05:20 INR, PTT INR 1.23 (0.83-1.09) H 09/14/19 05:27 Assessment/Plan DATA Echo 08/03: mod LVE, mod decr EF (global). nl RV. mild-mod MR, mod TR. RVSP 45. LHC 06/29: nl EDP; EF 40% (global); 50-60% OM1 (normal FFR); mild dz others MIBI 06/29 (pers): no STs; moder, partly rev defect AW c/w ischemia; mild LVE, mild-mod global LV hypo (40% EF); MILD TID MIBI 08/27 (pers): no ST change; TDS perfusion b/c of GI artifact and gating artifact; mild LV dilation and mild decr EFvisually (no TID) CXR: cardiomegaly, no congestion echo 05/2018 LV mildly dilated, borderline reduced LV function, grade II diastolic dysfunction, elevated filling pressures, LA mildly dilated, mild MAC, mild MR, mod TR, PASP at least 59 mmHg, no effusion EKG: sinus, nl intervals, no ischemic changes echo 08/2019 mild global hypokinesis EF 45%, RV nl, RA mod dilated, tr-mild MR, mod TR, RVSP at least 55 mmHg, severe pulm HTN tele: sinus, artifact ASSESSMENT/PLAN 63 yo smoker with h/o systolic cardiomyopathy, non-obstructive cad, HTN, HL, pHTN, PAD, mod PARVEZ on cpap, CKD (cr 1.8 - 2.2), DM, h/o GIB s/p cauterization of avm's, breast cancer p/w abnormal labs LYSSA, hyperkalemia: started on trial HD - lasix per renal elevated trop: - likely demand in setting of LYSSA, no signs ACS - echo mildly reduced LV function chronic systolic CHF: -borderline reduced LV function 2017, on lasix at home - BNP >61453 in setting of LYSSA - started on HD, lasix per renal. - echo as above - not on EVELINA/ARB due to recurrent severe hyperkalemia - cont bb anemia: - heme consulted Chronic ischemic heart disease: - nonobstrucive OM dz inc FFR negative, no history of angina -continue statin - no asa - hx anemia Essential hypertension: -cont hydralazine, beta bethel Chronic obstructive pulmonary disease -STABLE ON BB LONG TIME -no current sx's Obstructive sleep apnea -USES CPAP AT HOME breast ca -manage per heme/onc PAD: - known h/o obstructive RLE disease, claudication--deferred [employer] A[employer] perviously due to risks of contrast nephropathy
--- NOTE | 2019-09-18 08:29 | PN ---
Progress Note, Physician Chief Complaint: Acute Renal Failure Anemia CHF History of Present Illness: Previous notes and events reviewed awake and alert NITZA Garcia placed to R neck and HD done yesterday complain of SOB on exertion complain of R ear pain with drainage - Current Medication List Current Medications: Active Medications Albuterol/Ipratropium (Duoneb -) 1 amp NEB RQID [facility] Last Admin: 09/17/19 19:45 Dose: 1 amp Calcium Acetate (Phoslo -) 667 mg PO TIDCM [facility] Last Admin: 09/17/19 17:59 Dose: 667 mg Calcium Carbonate/Cholecalciferol (Os-Sergey 500+D -) 1 tab PO DAILY [facility] Last Admin: 09/17/19 10:14 Dose: 1 tab Famotidine (Pepcid -) 20 mg PO DAILY [facility] Last Admin: 09/17/19 10:14 Dose: 20 mg Furosemide (Lasix -) 80 mg PO DAILY [facility] Last Admin: 09/17/19 10:14 Dose: 80 mg Hydralazine HCl (Apresoline -) 50 mg PO BID [facility] Last Admin: 09/17/19 22:39 Dose: 50 mg Sodium Chloride (Normal Saline -) 250 mls @ 3,000 mls/hr IV PRN PRN PRN Reason: Hypotension during Dialysis Stop: 09/18/19 10:15 Insulin Aspart (Novolog Vial Sliding Scale -) 1 vial SQ TIDAC [facility]; Protocol Last Admin: 09/18/19 06:13 Dose: Not Given Melatonin (Melatonin) 5 mg PO HS PRN PRN Reason: INSOMNIA Last Admin: 09/17/19 22:39 Dose: 5 mg Metoprolol Tartrate (Lopressor -) 50 mg PO BID [facility] Last Admin: 09/17/19 22:39 Dose: 50 mg Pancrelipase (Creon Dr 36,000 Units Capsule) 1 cap PO TIDCM [facility] Last Admin: 09/17/19 17:58 Dose: 1 cap Rifaximin (Xifaxan -) 550 mg PO TID [facility] Last Admin: 09/18/19 06:13 Dose: 550 mg Simethicone (Mylicon -) 80 mg PO QID PRN PRN Reason: GAS Sitagliptin Phosphate (Januvia -) 25 mg PO DAILY@0700 [facility] Last Admin: 09/18/19 06:12 Dose: 25 mg Sodium Bicarbonate (Sodium Bicarbonate -) 1,300 mg PO TID [facility] Last Admin: 09/18/19 06:12 Dose: 1,300 mg Sodium Zirconium Cyclosilicate (Lokelma) 10 gm PO DAILY [facility] Last Admin: 09/17/19 12:41 Dose: 10 gm - Objective Vital Signs: Vital Signs Temperature 98.3 F 09/18/19 06:00 Pulse Rate 69 09/18/19 06:00 Respiratory Rate 18 09/18/19 06:00 Blood Pressure 149/54 L 09/18/19 06:00 O2 Sat by Pulse Oximetry (%) 98 09/18/19 00:17 Constitutional: Yes: No Distress, Calm Eyes: Yes: Conjunctiva Clear HENT: Yes: Atraumatic, Other (R ear-no erythema or tenderness to Pinna on palpation, no drainage noted) Cardiovascular: Yes: Regular Rate and Rhythm Respiratory: Yes: Regular, Diminished Gastrointestinal: Yes: Normal Bowel Sounds, Soft Musculoskeletal: Yes: Muscle Weakness Extremities: Yes: WNL Edema: No Integumentary: Yes: Rash (L forearm) Neurological: Yes: Alert, Oriented, Weakness Psychiatric: Yes: Alert, Oriented Labs: CBC, BMP 09/17/19 05:20 09/17/19 05:20 INR, PTT INR 1.23 (0.83-1.09) H 09/14/19 05:27 Problem List - Problems (1) Acute on chronic systolic (congestive) heart failure Assessment/Plan: -Cardiology on board -tele monitoring -BNP >50080 -daily weights -strict I&Os -fluid restriction -Furosemide -Echocardiogram EF 45%, RA moderately dilated, trace to mild mitral regurg, moderate tricuspid regurg, RV systolic pressure elevated, severe pulmonary HTNmild pulmonic valve regurg Code(s): I50.23 - ACUTE ON CHRONIC SYSTOLIC (CONGESTIVE) HEART FAILURE (2) Anemia Assessment/Plan: -Hg 7.7 -monitor Hg daily -transfuse for Hg <7.0 to avoid fluid overload Code(s): D64.9 - ANEMIA, UNSPECIFIED (3) Transaminitis Assessment/Plan: -GI on board -AST 27, ALT 22, Alk Phos 180 -Liver US shows hepatomegaly with slight coarse echotexture -Hepatitis serologies Code(s): R74.0 - NONSPEC ELEV OF LEVELS OF TRANSAMNS & LACTIC ACID DEHYDRGNSE (4) Acute exacerbation of chronic obstructive pulmonary disease (COPD) Assessment/Plan: -Pulm on board -Bronchodilators -O2 via NC -keep SpO2 >90% -Bipap HS Code(s): J44.1 - CHRONIC OBSTRUCTIVE PULMONARY DISEASE W (ACUTE) EXACERBATION (5) Acute hyperkalemia Assessment/Plan: -Renal on board -Lokelma -K 5.1 -monitor electrolytes daily Code(s): E87.5 - HYPERKALEMIA (6) CKD (chronic kidney disease) Assessment/Plan: -Renal on board -BUN/Cr 119.9/4.3 -HD on 09/17/19 -monitor renal function daily -will hold Furosemide, Lokelma, and Sodium Bicarb as per renal when HD schedule is made known Code(s): N18.9 - CHRONIC KIDNEY DISEASE, UNSPECIFIED Qualifiers: Chronic kidney disease stage: unspecified stage Qualified Code(s): N18.9 - Chronic kidney disease, unspecified (7) Diabetes mellitus Assessment/Plan: -[facility] -Sitagliptan -HgA1c 7.1% Code(s): E11.9 - TYPE 2 DIABETES MELLITUS WITHOUT COMPLICATIONS (8) HTN (hypertension) Assessment/Plan: -Hydralazine, Metoprolol Code(s): I10 - ESSENTIAL (PRIMARY) HYPERTENSION (9) Weakness Assessment/Plan: -Physical Therapy -Fall Risk Code(s): R53.1 - WEAKNESS (10) Right ear pain Assessment/Plan: -Cortisporin -if worsen consider ENT consult Code(s): H92.01 - OTALGIA, RIGHT EAR Assessment/Plan see problem list SCDs
[2019-09-18] MEDS: ALBUTEROL SO4 2.5/IPRATROPIUM 0.5 INH SOL 3 ML VIAL.NEB. NEB SCH ×2 (08:33→10:34)
[2019-09-18] MEDS: LIPASE/PROTEASE/AMYLASE 36,000 UNIT CAPSULE PO SCH ×3 (08:47→17:34)
[2019-09-18] MEDS: CALCIUM ACETATE 667 MG CAPSULE (FP) PO SCH ×3 (08:47→17:34)
[2019-09-18] MEDS: FAMOTIDINE 20 MG TABLET PO SCH (10:26)
[2019-09-18] MEDS: METOPROLOL TARTRATE 50 MG TABLET (FP) PO SCH ×2 (10:26→21:49)
[2019-09-18] MEDS: hydrALAZINE HCL 25 MG TABLET (FP) PO SCH ×2 (10:26→21:49)
[2019-09-18] MEDS: CALCIUM 500MG/VIT-D 200 UNITS COMBO TABLET (FP) PO SCH (10:27)
[2019-09-18] MEDS ORDERED: SODIUM CHLORIDE 250 ML IV PRN (10:28)
--- NOTE | 2019-09-18 10:28 | PN ---
Progress Note (short form) - Note Progress Note: RENAL Pt awake and alert having some loose stools nausea is better Last Vital Signs Temp Pulse Resp BP Pulse Ox 98.8 F 69 18 141/58 L 98 09/18/19 08:55 09/18/19 08:55 09/18/19 08:55 09/18/19 08:55 09/18/19 00:17 lungs clear cvs s1s2 rr no rub abd soft ext no edema neuro a+ox3 no asterixis noted Current Medications Generic Name Dose Route Start Last Admin Trade Name Freq PRN Reason Stop Dose Admin Albuterol/Ipratropium 1 amp 09/13/19 16:00 09/17/19 19:45 Duoneb - NEB 1 amp RQID [facility] Administration Calcium Acetate 667 mg 09/16/19 17:30 09/18/19 08:47 Phoslo - PO 667 mg TIDCM [facility] Administration Calcium Carbonate/Cholecalciferol 1 tab 09/13/19 17:30 09/17/19 10:14 Os-Sergey 500+D - PO 1 tab DAILY [facility] Administration Famotidine 20 mg 09/17/19 10:00 09/17/19 10:14 Pepcid - PO 20 mg DAILY [facility] Administration Furosemide 80 mg 09/15/19 10:00 09/17/19 10:14 Lasix - PO 80 mg DAILY [facility] Administration Hydralazine HCl 50 mg 09/13/19 22:00 09/17/19 22:39 Apresoline - PO 50 mg BID [facility] Administration Insulin Aspart 1 vial 09/14/19 16:30 09/18/19 06:13 Novolog Vial Sliding Scale - SQ Not Given TIDAC [facility] Protocol Melatonin 5 mg 09/14/19 00:40 09/17/19 22:39 Melatonin PO 5 mg HS PRN Administration INSOMNIA Metoprolol Tartrate 50 mg 09/14/19 11:00 09/17/19 22:39 Lopressor - PO 50 mg BID [facility] Administration Neomycin/Polymyxin/Hydrocortisone 4 drop 09/18/19 12:00 Cortisporin Otic Solution - AD Q6HPO [facility] Pancrelipase 1 cap 09/16/19 12:00 09/18/19 08:47 Crebianca Wang 36,000 Units Capsule PO 1 cap TIDCM [facility] Administration Rifaximin 550 mg 09/17/19 14:00 09/18/19 06:13 Xifaxan - PO 550 mg TID [facility] Administration Simethicone 80 mg 09/17/19 08:57 Mylicon - PO QID PRN GAS Sitagliptin Phosphate 25 mg 09/15/19 07:00 09/18/19 06:12 Januvia - PO 25 mg DAILY@0700 [facility] Administration Sodium Bicarbonate 1,300 mg 09/14/19 22:00 09/18/19 06:12 Sodium Bicarbonate - PO 1,300 mg TID [facility] Administration Sodium Zirconium Cyclosilicate 10 gm 09/14/19 16:30 09/17/19 12:41 Lokelma PO 10 gm DAILY [facility] Administration Impression 1. CKD 2. anemia 3. CHF 4. HTN 5. DM 6. hyperlipidemia 7. anxiety 8. uterine cancer 9. hx GI bleed 10. COPD 11. breast cancer 12. hyperkalemia 13. nausea can be a uremic symptom but obviously can be from other reasons Plan will dialyze again today should have a permcath placed early next week will need outpatient hd repeat labs today MV
[2019-09-18] MEDS: FUROSEMIDE 40 MG TABLET (FP) PO SCH (10:34)
[2019-09-18] MEDS: SODIUM ZIRCONIUM CYCLOSILICATE (LOKELMA) 5 GM PACKET PO SCH (10:34)
[2019-09-18 10:41] LABS: HEMATOCRIT 23.4 % (32.4-45.2); HEMOGLOBIN 7.6 GM/dL (10.7-15.3); MCH 30.3 pg (25.7-33.7); MCHC 32.3 g/dl (32.0-36.0); MEAN CELL VOLUME 93.6 fl (80-96); MEAN PLT VOLUME 8.9 fl (7.5-11.1); PLATELET COUNT 154 K/MM3 (134-434); RDW 17.9 % (11.6-15.6); WHITE BLOOD COUNT 4.9 K/mm3 (4.0-10.0)
[2019-09-18 11:02] LABS: ALBUMIN 3.4 g/dl (3.4-5.0); BILIRUBIN,TOTAL 0.6 mg/dL (0.2-1); BLOOD UREA NITROGEN 73.4 mg/dL (7-18); CALCIUM 7.7 mg/dL (8.5-10.1); CREATININE 3.4 mg/dL (0.55-1.3); POTASSIUM 4.2 mmol/L (3.5-5.1); TOT PROT 6.5 g/dl (6.4-8.2)
--- NOTE | 2019-09-18 12:12 | PN ---
Progress Note (short form) - Note Progress Note: PULMONARY LYING SUPINE/USING NEB NIPPV HAS NOT BEEN ORDERED YET VSS/AFEBRILE Constitutional: Yes: NAD Eyes: Yes: WNL HENT: Yes: WNL Neck: Yes: WNL Cardiovascular: Yes: Regular Rate and Rhythm, S1, S2 Respiratory: Yes: Diminished at the bases Gastrointestinal: Yes: Normal Bowel Sounds, Soft Extremities: Yes: WNL Edema: No Labs:NOTED Problem List - Problems (1) Acute on chronic systolic (congestive) heart failure Code(s): I50.23 - ACUTE ON CHRONIC SYSTOLIC (CONGESTIVE) HEART FAILURE (2) Acute on chronic systolic (congestive) heart failure Code(s): I50.23 - ACUTE ON CHRONIC SYSTOLIC (CONGESTIVE) HEART FAILURE (3) Anemia Code(s): D64.9 - ANEMIA, UNSPECIFIED (4) Acute hyperkalemia Code(s): E87.5 - HYPERKALEMIA (5) Benign hypertension Code(s): I10 - ESSENTIAL (PRIMARY) HYPERTENSION (6) CAD (coronary artery disease) Code(s): I25.10 - ATHSCL HEART DISEASE OF [place] CORONARY ARTERY W/O ANG PCTRS Qualifiers: Coronary Disease-Associated Artery/Lesion type: [place] coronary artery Associated angina: with other forms of angina pectoris (7) CKD (chronic kidney disease) Code(s): N18.9 - CHRONIC KIDNEY DISEASE, UNSPECIFIED Qualifiers: Chronic kidney disease stage: unspecified stage Qualified Code(s): N18.9 - Chronic kidney disease, unspecified (8) Controlled type 2 diabetes mellitus with diabetic peripheral angiopathy without gangrene Code(s): E11.51 - TYPE 2 DIABETES W DIABETIC PERIPHERAL ANGIOPATH W/O GANGRENE (9) Edema Code(s): R60.9 - EDEMA, UNSPECIFIED Qualifiers: Edema type: generalized Qualified Code(s): R60.1 - Generalized edema (10) HTN (hypertension) Code(s): I10 - ESSENTIAL (PRIMARY) HYPERTENSION (11) Hyperkalemia Code(s): E87.5 - HYPERKALEMIA (12) Nausea Code(s): R11.0 - NAUSEA (13) PARVEZ on CPAP Code(s): G47.33 - OBSTRUCTIVE SLEEP APNEA (ADULT) (PEDIATRIC) (14) PVD (peripheral vascular disease) Code(s): I73.9 - PERIPHERAL VASCULAR DISEASE, UNSPECIFIED (15) Pulmonary hypertension Code(s): I27.2 - OTHER SECONDARY PULMONARY HYPERTENSION * DO NOT USE * (16) SOB (shortness of breath) Code(s): R06.02 - SHORTNESS OF BREATH (17) Sleep apnea, obstructive Code(s): G47.33 - OBSTRUCTIVE SLEEP APNEA (ADULT) (PEDIATRIC) (18) Smoker Code(s): F17.200 - NICOTINE DEPENDENCE, UNSPECIFIED, UNCOMPLICATED (19) Smoker unmotivated to quit Code(s): F17.210 - NICOTINE DEPENDENCE, CIGARETTES, UNCOMPLICATED (20) Weakness Code(s): R53.1 - WEAKNESS Assessment/Plan IMP DYSPNEA IMPROVING ACUTE ON CHRONIC SYSTOLIC CHF PULMONARY HTN ASHD ACUTE ON CHRONIC KIDNEY FAILURE HYPERKALEMIA PARVEZ PT NON-COMPLIANT WITH CPAP COPD SMOKER ANEMIA HTN HLD DM H/O GIB NAUSEA H/O BREAST CA PLAN LASIX PER RENAL O2/HD TODAY INHALED BRONCHODILATORS MONITOR LYTES ,RENAL FUNCTION MONITOR H+H NORMAL TRANSFUSION THRESHOLD SMOKING CESSATION COUNSELED HAVE ORDERED CPAP Kevin FELIZ MD
[2019-09-18] MEDS ORDERED: PT OWN MED DRAWER 7, Y5N ONE (14:53)
[2019-09-18] MEDS: NEOMYCIN/POLYMYXN/HC OTIC SOLUTION 10 ML BOTTLE AD SCH ×2 (14:59→18:15)
[2019-09-18] MEDS: MELATONIN 5 MG TABLETS PO PRN (21:50)
[2019-09-19] MEDS: NEOMYCIN/POLYMYXN/HC OTIC SOLUTION 10 ML BOTTLE AD SCH ×5 (01:17→23:05)
[2019-09-19] MEDS: INSULIN SLIDING SCALE (NOVOLOG) 1 VIAL SQ SCH ×3 (06:28→17:02)
[2019-09-19] MEDS: RIFAXIMIN 550 MG TABLET (UD) PO SCH ×3 (06:28→21:40)
--- NOTE | 2019-09-19 06:45 | PN ---
Progress Note, Physician Chief Complaint: On CPAP Denies CP, dizziness TELE: NSR w/ artifact History of Present Illness: BP trend overall at goal - Current Medication List Current Medications: Active Medications Calcium Acetate (Phoslo -) 667 mg PO TIDCM [facility] Last Admin: 09/18/19 17:34 Dose: 667 mg Calcium Carbonate/Cholecalciferol (Os-Sergey 500+D -) 1 tab PO DAILY [facility] Last Admin: 09/18/19 10:27 Dose: 1 tab Famotidine (Pepcid -) 20 mg PO DAILY [facility] Last Admin: 09/18/19 10:26 Dose: 20 mg Furosemide (Lasix -) 80 mg PO DAILY [facility] Last Admin: 09/18/19 10:34 Dose: Not Given Hydralazine HCl (Apresoline -) 50 mg PO BID [facility] Last Admin: 09/18/19 21:49 Dose: 50 mg Sodium Chloride (Normal Saline -) 250 mls @ 3,000 mls/hr IV PRN PRN PRN Reason: Hypotension during Dialysis Stop: 09/19/19 10:28 Insulin Aspart (Novolog Vial Sliding Scale -) 1 vial SQ TIDAC [facility]; Protocol Last Admin: 09/19/19 06:28 Dose: Not Given Melatonin (Melatonin) 5 mg PO HS PRN PRN Reason: INSOMNIA Last Admin: 09/18/19 21:50 Dose: 5 mg Metoprolol Tartrate (Lopressor -) 50 mg PO BID [facility] Last Admin: 09/18/19 21:49 Dose: 50 mg Neomycin/Polymyxin/Hydrocortisone (Cortisporin Otic Solution -) 4 drop AD Q6HPO [facility] Last Admin: 09/19/19 06:28 Dose: 4 drop Pancrelipase (Creon Dr 36,000 Units Capsule) 1 cap PO TIDCM [facility] Last Admin: 09/18/19 17:34 Dose: 1 cap Rifaximin (Xifaxan -) 550 mg PO TID [facility] Last Admin: 09/19/19 06:28 Dose: 550 mg Simethicone (Mylicon -) 80 mg PO QID PRN PRN Reason: GAS Sitagliptin Phosphate (Januvia -) 25 mg PO DAILY@0700 [facility] Last Admin: 09/19/19 06:27 Dose: 25 mg Sodium Bicarbonate (Sodium Bicarbonate -) 1,300 mg PO TID [facility] Last Admin: 09/18/19 06:12 Dose: 1,300 mg Sodium Zirconium Cyclosilicate (Lokelma) 10 gm PO DAILY [facility] Last Admin: 09/18/19 10:34 Dose: Not Given - Objective Vital Signs: Vital Signs Temperature 97.9 F 09/19/19 06:00 Pulse Rate 63 09/19/19 06:00 Respiratory Rate 18 09/19/19 06:00 Blood Pressure 141/65 09/19/19 06:00 O2 Sat by Pulse Oximetry (%) 98 09/19/19 03:47 Constitutional: Yes: No Distress, Calm Cardiovascular: Yes: Regular Rate and Rhythm Respiratory: Yes: Other (decreased breaths sounds b/l; no active wheezing.) Gastrointestinal: Yes: Soft Edema: No Neurological: Yes: Alert, Oriented ...Motor Strength: WNL Labs: CBC, BMP 09/18/19 10:00 09/18/19 10:00 INR, PTT INR 1.23 (0.83-1.09) H 09/14/19 05:27 Laboratory Tests 09/13/19 09/17/19 09/19/19 Unknown 05:20 07:38 WBC 5.1 3.8 L Hgb 7.7 L 7.6 L Plt Count 165 136 Sodium Potassium BUN Creatinine Stool Occult Blood Negative 09/19/19 07:38 WBC Hgb Plt Count Sodium 138 Potassium 3.5 BUN 34.8 H Creatinine 2.7 H Stool Occult Blood - ....Imaging EKG: Image Reviewed Assessment/Plan DATA Echo 08/03: mod LVE, mod decr EF (global). nl RV. mild-mod MR, mod TR. RVSP 45. [facility] 06/29: nl EDP; EF 40% (global); 50-60% OM1 (normal FFR); mild dz others MIBI 06/29 (pers): no STs; moder, partly rev defect AW c/w ischemia; mild LVE, mild-mod global LV hypo (40% EF); MILD TID MIBI 08/27 (pers): no ST change; TDS perfusion b/c of GI artifact and gating artifact; mild LV dilation and mild decr EFvisually (no TID) CXR: cardiomegaly, no congestion echo 05/2018 LV mildly dilated, borderline reduced LV function, grade II diastolic dysfunction, elevated filling pressures, LA mildly dilated, mild MAC, mild MR, mod TR, PASP at least 59 mmHg, no effusion EKG: sinus, nl intervals, no ischemic changes echo 08/2019 mild global hypokinesis EF 45%, RV nl, RA mod dilated, tr-mild MR, mod TR, RVSP at least 55 mmHg, severe pulm HTN tele: sinus, artifact ASSESSMENT/PLAN 63 yo smoker with h/o systolic cardiomyopathy, non-obstructive cad, HTN, HL, pHTN, PAD, mod PARVEZ on cpap, CKD (cr 1.8 - 2.2), DM, h/o GIB s/p cauterization of avm's, breast cancer p/w abnormal labs LYSSA, hyperkalemia: started on trial HD (09/17, 09/18): - lasix per renal elevated trop: - likely demand in setting of LYSSA, no signs ACS - echo mildly reduced LV function chronic systolic CHF: -borderline reduced LV function 2017, on lasix at home - BNP >42515 in setting of LYSSA - started on HD, lasix per renal. - echo as above - not on EVELINA/ARB due to recurrent severe hyperkalemia - cont bb anemia: - heme consulted, stool guaiac negative. Chronic ischemic heart disease: - nonobstrucive OM dz inc FFR negative, no history of angina -continue statin - no asa - hx anemia Essential hypertension: at goal -cont hydralazine, beta bethel Chronic obstructive pulmonary disease -STABLE ON BB LONG TIME -no current sx's Obstructive sleep apnea -USES CPAP AT HOME and intermittently here. 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
[2019-09-19 07:52] LABS: HEMATOCRIT 23.6 % (32.4-45.2); HEMOGLOBIN 7.6 GM/dL (10.7-15.3); MCH 30.3 pg (25.7-33.7); MCHC 32.3 g/dl (32.0-36.0); MEAN CELL VOLUME 93.9 fl (80-96); MEAN PLT VOLUME 7.9 fl (7.5-11.1); PLATELET COUNT 136 K/MM3 (134-434); RBC 2.51 M/mm3 (3.60-5.2); RDW 17.4 % (11.6-15.6); WHITE BLOOD COUNT 3.8 K/mm3 (4.0-10.0)
[2019-09-19 08:35] LABS: ALBUMIN 3.2 g/dl (3.4-5.0); BILIRUBIN,TOTAL 1.2 mg/dL (0.2-1); BLOOD UREA NITROGEN 34.8 mg/dL (7-18); CALCIUM 7.5 mg/dL (8.5-10.1); CREATININE 2.7 mg/dL (0.55-1.3); POTASSIUM 3.5 mmol/L (3.5-5.1); TOT PROT 6.3 g/dl (6.4-8.2)
[2019-09-19] MEDS: CALCIUM ACETATE 667 MG CAPSULE (FP) PO SCH ×3 (09:11→17:00)
[2019-09-19] MEDS: LIPASE/PROTEASE/AMYLASE 36,000 UNIT CAPSULE PO SCH ×3 (09:11→17:01)
[2019-09-19] MEDS: hydrALAZINE HCL 25 MG TABLET (FP) PO SCH ×2 (09:12→21:41)
[2019-09-19] MEDS: CALCIUM 500MG/VIT-D 200 UNITS COMBO TABLET (FP) PO SCH (09:12)
[2019-09-19] MEDS: METOPROLOL TARTRATE 50 MG TABLET (FP) PO SCH ×2 (09:12→21:40)
[2019-09-19] MEDS: FAMOTIDINE 20 MG TABLET PO SCH (10:22)
--- NOTE | 2019-09-19 11:45 | PN ---
Progress Note (short form) - Note Progress Note: PULMONARY HAD TO USE PAP LAST NIGHT AND THIS AM DUE TO INCREASE IN DYSPNEA APPEARS STABLE NOW ON N/C O2 VSS/AFEBRILE Constitutional: Yes: NAD Eyes: Yes: WNL HENT: Yes: WNL Neck: Yes: WNL Cardiovascular: Yes: Regular Rate and Rhythm, S1, S2 Respiratory: Yes: Diminished at the bases Gastrointestinal: Yes: Normal Bowel Sounds, Soft Extremities: Yes: WNL Edema: No Labs:NOTED Problem List - Problems (1) Acute on chronic systolic (congestive) heart failure Code(s): I50.23 - ACUTE ON CHRONIC SYSTOLIC (CONGESTIVE) HEART FAILURE (2) Acute on chronic systolic (congestive) heart failure Code(s): I50.23 - ACUTE ON CHRONIC SYSTOLIC (CONGESTIVE) HEART FAILURE (3) Anemia Code(s): D64.9 - ANEMIA, UNSPECIFIED (4) Acute hyperkalemia Code(s): E87.5 - HYPERKALEMIA (5) Benign hypertension Code(s): I10 - ESSENTIAL (PRIMARY) HYPERTENSION (6) CAD (coronary artery disease) Code(s): I25.10 - ATHSCL HEART DISEASE OF [place] CORONARY ARTERY W/O ANG PCTRS Qualifiers: Coronary Disease-Associated Artery/Lesion type: [place] coronary artery Associated angina: with other forms of angina pectoris (7) CKD (chronic kidney disease) Code(s): N18.9 - CHRONIC KIDNEY DISEASE, UNSPECIFIED Qualifiers: Chronic kidney disease stage: unspecified stage Qualified Code(s): N18.9 - Chronic kidney disease, unspecified (8) Controlled type 2 diabetes mellitus with diabetic peripheral angiopathy without gangrene Code(s): E11.51 - TYPE 2 DIABETES W DIABETIC PERIPHERAL ANGIOPATH W/O GANGRENE (9) Edema Code(s): R60.9 - EDEMA, UNSPECIFIED Qualifiers: Edema type: generalized Qualified Code(s): R60.1 - Generalized edema (10) HTN (hypertension) Code(s): I10 - ESSENTIAL (PRIMARY) HYPERTENSION (11) Hyperkalemia Code(s): E87.5 - HYPERKALEMIA (12) Nausea Code(s): R11.0 - NAUSEA (13) PRAVEZ on CPAP Code(s): G47.33 - OBSTRUCTIVE SLEEP APNEA (ADULT) (PEDIATRIC) (14) PVD (peripheral vascular disease) Code(s): I73.9 - PERIPHERAL VASCULAR DISEASE, UNSPECIFIED (15) Pulmonary hypertension Code(s): I27.2 - OTHER SECONDARY PULMONARY HYPERTENSION * DO NOT USE * (16) SOB (shortness of breath) Code(s): R06.02 - SHORTNESS OF BREATH (17) Sleep apnea, obstructive Code(s): G47.33 - OBSTRUCTIVE SLEEP APNEA (ADULT) (PEDIATRIC) (18) Smoker Code(s): F17.200 - NICOTINE DEPENDENCE, UNSPECIFIED, UNCOMPLICATED (19) Smoker unmotivated to quit Code(s): F17.210 - NICOTINE DEPENDENCE, CIGARETTES, UNCOMPLICATED (20) Weakness Code(s): R53.1 - WEAKNESS Assessment/Plan IMP DYSPNEA ACUTE ON CHRONIC SYSTOLIC CHF PULMONARY HTN ASHD ACUTE ON CHRONIC KIDNEY FAILURE HYPERKALEMIA PARVEZ PT NON-COMPLIANT WITH CPAP COPD SMOKER ANEMIA HTN HLD DM H/O GIB NAUSEA H/O BREAST CA PLAN LASIX PER RENAL O2/HD YESTERDAY CXR PORTABLE ORDERED INHALED BRONCHODILATORS MONITOR LYTES ,RENAL FUNCTION MONITOR H+H NORMAL TRANSFUSION THRESHOLD SMOKING CESSATION COUNSELED Kevin FELIZ MD
[2019-09-19] MEDS ORDERED: PT OWN MED DRAWER 7, Y5N ONE (12:15)
--- NOTE | 2019-09-19 12:15 | PN ---
Progress Note, Physician Chief Complaint: CXR REVIEWED NOTES AND EVENTS ALSO REVIEWED PATIENT C/O SOB NO CHEST PAIN - Current Medication List Current Medications: Active Medications Calcium Acetate (Phoslo -) 667 mg PO TIDCM [facility] Last Admin: 09/19/19 09:11 Dose: 667 mg Calcium Carbonate/Cholecalciferol (Os-Sergey 500+D -) 1 tab PO DAILY [facility] Last Admin: 09/19/19 09:12 Dose: 1 tab Famotidine (Pepcid -) 20 mg PO DAILY [facility] Last Admin: 09/19/19 10:22 Dose: 20 mg Furosemide (Lasix -) 80 mg PO DAILY [facility] Last Admin: 09/18/19 10:34 Dose: Not Given Hydralazine HCl (Apresoline -) 50 mg PO BID [facility] Last Admin: 09/19/19 09:12 Dose: 50 mg Insulin Aspart (Novolog Vial Sliding Scale -) 1 vial SQ TIDAC [facility]; Protocol Last Admin: 09/19/19 11:49 Dose: Not Given Melatonin (Melatonin) 5 mg PO HS PRN PRN Reason: INSOMNIA Last Admin: 09/18/19 21:50 Dose: 5 mg Metoprolol Tartrate (Lopressor -) 50 mg PO BID [facility] Last Admin: 09/19/19 09:12 Dose: 50 mg Neomycin/Polymyxin/Hydrocortisone (Cortisporin Otic Solution -) 4 drop AD Q6HPO [facility] Last Admin: 09/19/19 06:28 Dose: 4 drop Pancrelipase (Creon Dr 36,000 Units Capsule) 1 cap PO TIDCM [facility] Last Admin: 09/19/19 09:11 Dose: 1 cap Rifaximin (Xifaxan -) 550 mg PO TID [facility] Last Admin: 09/19/19 06:28 Dose: 550 mg Simethicone (Mylicon -) 80 mg PO QID PRN PRN Reason: GAS Sitagliptin Phosphate (Januvia -) 25 mg PO DAILY@0700 [facility] Last Admin: 09/19/19 06:27 Dose: 25 mg Sodium Bicarbonate (Sodium Bicarbonate -) 1,300 mg PO TID [facility] Last Admin: 09/18/19 06:12 Dose: 1,300 mg Sodium Zirconium Cyclosilicate (Lokelma) 10 gm PO DAILY [facility] Last Admin: 09/18/19 10:34 Dose: Not Given - Objective Vital Signs: Vital Signs Temperature 98.8 F 09/19/19 08:30 Pulse Rate 63 09/19/19 08:30 Respiratory Rate 18 09/19/19 09:00 Blood Pressure 150/67 09/19/19 08:30 O2 Sat by Pulse Oximetry (%) 96 09/19/19 11:15 Constitutional: Yes: Mild Distress Cardiovascular: Yes: Tachycardia Respiratory: Yes: Diminished, On Nasal O2 Gastrointestinal: Yes: Soft Genitourinary: Yes: Other Musculoskeletal: Yes: Muscle Weakness Labs: CBC, BMP 09/19/19 07:38 09/19/19 07:38 INR, PTT INR 1.23 (0.83-1.09) H 09/14/19 05:27 Problem List - Problems (1) Acute on chronic systolic (congestive) heart failure Code(s): I50.23 - ACUTE ON CHRONIC SYSTOLIC (CONGESTIVE) HEART FAILURE (2) Anemia Code(s): D64.9 - ANEMIA, UNSPECIFIED (3) Acute exacerbation of chronic obstructive pulmonary disease (COPD) Code(s): J44.1 - CHRONIC OBSTRUCTIVE PULMONARY DISEASE W (ACUTE) EXACERBATION Assessment/Plan 02 SUPPORT CXR NO NEW CHANGES OOB TO CHAIR , DVT PROPHYLAXIS ANEMIA SYMPTOMATIC TRANSFUSE KEEP HEMOGLOBIN >8 ESRD PERMACATH TO BE PLACED HD
[2019-09-19 15:06] LABS: ARTERIAL BLD GAS O2 SATURATION 97 % (95-98); ARTERIAL BLOOD GAS PCO2 40.7 mmHg (35-45); ARTERIAL BLOOD GAS PO2 85.3 mmHg (80-100); ARTERIAL BLOOD GAS pH 7.48 (7.35-7.45)
[2019-09-19 15:07] LABS: ALLENS TEST POSITIVE; ARTERIAL BLOOD GAS BASE EXCESS 6.3 meq/l (-2-2)
--- NOTE | 2019-09-19 15:59 | PN ---
Progress Note (short form) - Note Progress Note: RENAL Pt awake and alert has multiple complaints no longer nauseated Vital Signs Temp Pulse Resp BP Pulse Ox 98.1 F 70 18 152/61 97 09/19/19 13:05 09/19/19 13:05 09/19/19 13:05 09/19/19 13:05 09/19/19 12:58 lungs clear cvs s1s2 rr no rub abd soft ext no edema neuro a+ox3 no asterixis noted CBC, BMP 09/19/19 07:38 09/19/19 07:38 Current Medications Generic Name Dose Route Start Last Admin Trade Name Freq PRN Reason Stop Dose Admin Calcium Acetate 667 mg 09/16/19 17:30 09/19/19 12:17 Phoslo - PO 667 mg TIDCM [facility] Administration Calcium Carbonate/Cholecalciferol 1 tab 09/13/19 17:30 09/19/19 09:12 Os-Sergey 500+D - PO 1 tab DAILY [facility] Administration Famotidine 20 mg 09/17/19 10:00 09/19/19 10:22 Pepcid - PO 20 mg DAILY [facility] Administration Furosemide 80 mg 09/15/19 10:00 09/18/19 10:34 Lasix - PO Not Given DAILY [facility] Hydralazine HCl 50 mg 09/13/19 22:00 09/19/19 09:12 Apresoline - PO 50 mg BID [facility] Administration Insulin Aspart 1 vial 09/14/19 16:30 09/19/19 11:49 Novolog Vial Sliding Scale - SQ Not Given TIDAC [facility] Protocol Melatonin 5 mg 09/14/19 00:40 09/18/19 21:50 Melatonin PO 5 mg HS PRN Administration INSOMNIA Metoprolol Tartrate 50 mg 09/14/19 11:00 09/19/19 09:12 Lopressor - PO 50 mg BID [facility] Administration Neomycin/Polymyxin/Hydrocortisone 4 drop 09/18/19 12:00 09/19/19 12:17 Cortisporin Otic Solution - AD 4 drop Q6HPO [facility] Administration Pancrelipase 1 cap 09/16/19 12:00 09/19/19 12:[address] 36,000 Units Capsule PO 1 cap TIDCM [facility] Administration Rifaximin 550 mg 09/17/19 14:00 09/19/19 15:10 Xifaxan - PO 550 mg TID [facility] Administration Simethicone 80 mg 09/17/19 08:57 Mylicon - PO QID PRN GAS Sitagliptin Phosphate 25 mg 09/15/19 07:00 09/19/19 06:27 Januvia - PO 25 mg DAILY@0700 [facility] Administration Sodium Bicarbonate 1,300 mg 09/14/19 22:00 09/18/19 06:12 Sodium Bicarbonate - PO 1,300 mg TID [facility] Administration Sodium Zirconium Cyclosilicate 10 gm 09/14/19 16:30 09/18/19 10:34 Lokelma PO Not Given DAILY [facility] Impression 1. CKD 2. anemia 3. CHF 4. HTN 5. DM 6. hyperlipidemia 7. anxiety 8. uterine cancer 9. hx GI bleed 10. COPD 11. breast cancer 12. hyperkalemia 13. nausea can be a uremic symptom but obviously can be from other reasons- its better Plan will dialyze again today should have a permcath placed early next week will need outpatient hd repeat labs tomorrow I spoke with vascular to place a permcath MV
[2019-09-19] MEDS: MELATONIN 5 MG TABLETS PO PRN (23:05)
[2019-09-20] MEDS: NEOMYCIN/POLYMYXN/HC OTIC SOLUTION 10 ML BOTTLE AD SCH ×3 (06:14→17:12)
[2019-09-20] MEDS: RIFAXIMIN 550 MG TABLET (UD) PO SCH ×3 (06:14→21:21)
[2019-09-20] MEDS: INSULIN SLIDING SCALE (NOVOLOG) 1 VIAL SQ SCH ×3 (06:14→17:11)
[2019-09-20] MEDS ORDERED: PT OWN MED DRAWER 7, Y5N ONE ×3 (06:49→21:20)
[2019-09-20 08:20] LABS: HEMATOCRIT 23.9 % (32.4-45.2); HEMOGLOBIN 7.6 GM/dL (10.7-15.3); MCH 30.4 pg (25.7-33.7); MEAN PLT VOLUME 9.1 fl (7.5-11.1); PLATELET COUNT 142 K/MM3 (134-434); RBC 2.52 M/mm3 (3.60-5.2); RDW 17.4 % (11.6-15.6); WHITE BLOOD COUNT 4.6 K/mm3 (4.0-10.0)
[2019-09-20 08:38] LABS: BLOOD UREA NITROGEN 47.4 mg/dL (7-18); CALCIUM 7.8 mg/dL (8.5-10.1); CREATININE 3.5 mg/dL (0.55-1.3); POTASSIUM 4.1 mmol/L (3.5-5.1)
[2019-09-20] MEDS: LIPASE/PROTEASE/AMYLASE 36,000 UNIT CAPSULE PO SCH ×3 (08:53→17:09)
[2019-09-20] MEDS: CALCIUM ACETATE 667 MG CAPSULE (FP) PO SCH ×3 (08:53→17:09)
[2019-09-20] MEDS: hydrALAZINE HCL 25 MG TABLET (FP) PO SCH (09:04)
[2019-09-20] MEDS: FAMOTIDINE 20 MG TABLET PO SCH (09:04)
[2019-09-20] MEDS: METOPROLOL TARTRATE 50 MG TABLET (FP) PO SCH ×2 (09:04→21:21)
[2019-09-20] MEDS: CALCIUM 500MG/VIT-D 200 UNITS COMBO TABLET (FP) PO SCH (09:05)
--- NOTE | 2019-09-20 10:07 | SPA.PREOP ---
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 Planned Procedure: Permacath Insertion 09/20/19 Surgeon: Armando Churchill Last Vital Signs Temp Pulse Resp BP Pulse Ox 98.6 F 63 16 141/68 94 L 09/20/19 06:00 09/20/19 06:00 09/20/19 06:00 09/20/19 06:00 09/19/19 21:00 Lab Results WBC 4.6 K/mm3 (4.0-10.0) 09/20/19 07:35 RBC 2.52 M/mm3 (3.60-5.2) L 09/20/19 07:35 Hgb 7.6 GM/dL (10.7-15.3) L 09/20/19 07:35 Hct 23.9 % (32.4-45.2) L 09/20/19 07:35 MCV 95.0 fl (80-96) 09/20/19 07:35 MCHC 32.0 g/dl (32.0-36.0) 09/20/19 07:35 RDW 17.4 % (11.6-15.6) H 09/20/19 07:35 Plt Count 142 K/MM3 (134-434) 09/20/19 07:35 Sodium 138 mmol/L (136-145) 09/20/19 07:35 Potassium 4.1 mmol/L (3.5-5.1) 09/20/19 07:35 Chloride 101 mmol/L (98-107) 09/20/19 07:35 Carbon Dioxide 32 mmol/L (21-32) 09/20/19 07:35 Anion Gap 5 MMOL/L (8-16) L 09/20/19 07:35 BUN 47.4 mg/dL (7-18) H 09/20/19 07:35 Creatinine 3.5 mg/dL (0.55-1.3) H 09/20/19 07:35 Random Glucose 96 mg/dL (74-106) 09/20/19 07:35 Calcium 7.8 mg/dL (8.5-10.1) L 09/20/19 07:35 Blood Type B POSITIVE 09/13/19 14:00 Antibody Screen Negative 09/13/19 14:00 INR 1.23 (0.83-1.09) H 09/14/19 05:27 - IMAGING Chest X-ray: Report Reviewed, Image Reviewed - ASSESSMENT/PLAN 1. NPO except po meds 2. GI/DVT PPX 3. Medical optimization / clearance 4. Consent to be obtained by surgeon after risks, benefits and alternatives discussed with patient and or Health Care Proxy. Problem List - Problems (1) CKD (chronic kidney disease) stage 3, GFR 30-59 ml/min Code(s): N18.3 - CHRONIC KIDNEY DISEASE, STAGE 3 (MODERATE) (2) Acute on chronic systolic (congestive) heart failure Code(s): I50.23 - ACUTE ON CHRONIC SYSTOLIC (CONGESTIVE) HEART FAILURE (3) Anemia Code(s): D64.9 - ANEMIA, UNSPECIFIED (4) Asthma Code(s): J45.909 - UNSPECIFIED ASTHMA, UNCOMPLICATED (5) CAD (coronary artery disease) Code(s): I25.10 - ATHSCL HEART DISEASE OF [place] CORONARY ARTERY W/O ANG PCTRS Qualifiers: Coronary Disease-Associated Artery/Lesion type: [place] coronary artery Associated angina: with other forms of angina pectoris (6) CHF (congestive heart failure) Code(s): I50.9 - HEART FAILURE, UNSPECIFIED (7) Controlled type 2 diabetes mellitus with diabetic peripheral angiopathy without gangrene Code(s): E11.51 - TYPE 2 DIABETES W DIABETIC PERIPHERAL ANGIOPATH W/O GANGRENE Visit type - Case Type Case Type: ED Admission
[2019-09-20] MEDS ORDERED: LIDOCAINE HCL 1%, 10 MG/ML (20ML VIAL) ONE (10:11)
[2019-09-20] MEDS ORDERED: HEPARIN NA (PORCINE) 5,000 UNITS/ML 1ML VIAL ONE (10:11)
--- NOTE | 2019-09-20 10:28 | PN ---
Progress Note, Physician - Current Medication List Current Medications: Active Medications Calcium Acetate (Phoslo -) 667 mg PO TIDCM [facility] Last Admin: 09/20/19 08:53 Dose: 667 mg Calcium Carbonate/Cholecalciferol (Os-Sergey 500+D -) 1 tab PO DAILY [facility] Last Admin: 09/20/19 09:05 Dose: 1 tab Famotidine (Pepcid -) 20 mg PO DAILY [facility] Last Admin: 09/20/19 09:04 Dose: 20 mg Furosemide (Lasix -) 80 mg PO DAILY [facility] Last Admin: 09/18/19 10:34 Dose: Not Given Hydralazine HCl (Apresoline -) 50 mg PO BID [facility] Last Admin: 09/20/19 09:04 Dose: 50 mg Insulin Aspart (Novolog Vial Sliding Scale -) 1 vial SQ TIDAC [facility]; Protocol Last Admin: 09/20/19 06:14 Dose: Not Given Melatonin (Melatonin) 5 mg PO HS PRN PRN Reason: INSOMNIA Last Admin: 09/19/19 23:05 Dose: 5 mg Metoprolol Tartrate (Lopressor -) 50 mg PO BID [facility] Last Admin: 09/20/19 09:04 Dose: 50 mg Neomycin/Polymyxin/Hydrocortisone (Cortisporin Otic Solution -) 4 drop AD Q6HPO [facility] Last Admin: 09/20/19 06:14 Dose: 4 drop Pancrelipase (Creon Dr 36,000 Units Capsule) 1 cap PO TIDCM [facility] Last Admin: 09/20/19 08:53 Dose: 1 cap Rifaximin (Xifaxan -) 550 mg PO TID [facility] Last Admin: 09/20/19 06:14 Dose: 550 mg Simethicone (Mylicon -) 80 mg PO QID PRN PRN Reason: GAS Sitagliptin Phosphate (Januvia -) 25 mg PO DAILY@0700 [facility] Last Admin: 09/20/19 06:15 Dose: Not Given Sodium Bicarbonate (Sodium Bicarbonate -) 1,300 mg PO TID [facility] Last Admin: 09/18/19 06:12 Dose: 1,300 mg Sodium Zirconium Cyclosilicate (Lokelma) 10 gm PO DAILY [facility] Last Admin: 09/18/19 10:34 Dose: Not Given - Objective Vital Signs: Vital Signs Temperature 98.7 F 09/20/19 10:00 Pulse Rate 63 09/20/19 10:00 Respiratory Rate 18 09/20/19 10:00 Blood Pressure 156/67 09/20/19 10:00 O2 Sat by Pulse Oximetry (%) 92 L 09/20/19 09:00 Labs: CBC, BMP 09/20/19 07:35 09/20/19 07:35 INR, PTT INR 1.23 (0.83-1.09) H 09/14/19 05:27 Assessment/Plan C 06/29: nl EDP; EF 40% (global); 50-60% OM1 (normal FFR); mild dz others MIBI 06/29 (pers): no STs; moder, partly rev defect AW c/w ischemia; mild LVE, mild-mod global LV hypo (40% EF); MILD TID echo 08/2019 mild global hypokinesis EF 45%, RV nl, RA mod dilated, tr-mild MR, mod TR, RVSP at least 55 mmHg echo 05/2018 LV mildly dilated, borderline reduced LV function, grade II diastolic dysfunction, elevated filling pressures, LA mildly dilated, mild MAC, mild MR, mod TR, PASP at least 59 mmHg, no effusion EKG: sinus, nl intervals, no ischemic changes CXR: cardiomegaly, no congestion tele: ASSESSMENT/PLAN 63 yo smoker with h/o systolic cardiomyopathy, non-obstructive cad, HTN, HL, pHTN, PAD, mod PARVEZ on cpap, CKD (cr 1.8 - 2.2), DM, h/o GIB s/p cauterization of avm's, breast cancer p/w abnormal labs LYSSA, hyperkalemia: started on trial HD here: -dialysis per renal -lasix per renal elevated trop: - likely demand in setting of LYSSA, no signs ACS - echo mildly reduced LV function chronic systolic CHF: -borderline reduced LV function 2017, on lasix at home - BNP >51538 in setting of LYSSA - started on HD, lasix per renal. - has not seen me since 10/04: was on metopr succ 50 qd then, now tartrate 50 bid (? less hypotension concerns with HD)--cont same for now - echo as above - not on EVELINA/ARB due to recurrent severe hyperkalemia (including with trials of kayexalate) - cont bb anemia: - heme consulted, stool guaiac negative. Essential hypertension: at goal -cont hydralazine, beta bethel HPL: -was on atorva 10 when saw me last--off now -? 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
[2019-09-20] MEDS ORDERED: MIDAZOLAM HCL 2 MG/2 ML SINGLE DOSE VIAL ONE (12:48)
[2019-09-20] MEDS ORDERED: LIDOCAINE HCL 1%, 10 MG/ML (20ML VIAL) NR ONE (13:09)
--- NOTE | 2019-09-20 13:16 | OP ---
Operative Note - Note: Operative Date: 09/20/19 Pre-Operative Diagnosis: ESRD Operation: Insertion of permacath Post-Operative Diagnosis: Same as Pre-op Surgeon: Armando Churchill Anesthesia: Fractional Estimated Blood Loss (mls): 10 Operative Report Dictated: Yes
[2019-09-20] MEDS ORDERED: SIMETHICONE 80 MG TAB.CHEW (FP) PO PRN (13:49)
[2019-09-20] MEDS ORDERED: SODIUM BICARBONATE 650 MG TABLET PO SCH (14:00)
--- NOTE | 2019-09-20 15:17 | PN ---
Progress Note, Physician Chief Complaint: patient seen and examined in pacu s/p insertion of Permacath - Current Medication List Current Medications: Active Medications Calcium Acetate (Phoslo -) 667 mg PO TIDCM [facility] Calcium Carbonate/Cholecalciferol (Os-Sergey 500+D -) 1 tab PO DAILY [facility] Famotidine (Pepcid -) 20 mg PO DAILY [facility] Furosemide (Lasix -) 80 mg PO DAILY [facility] Hydralazine HCl (Apresoline -) 50 mg PO BID [facility] Insulin Aspart (Novolog Vial Sliding Scale -) 1 vial SQ TIDAC [facility]; Protocol Melatonin (Melatonin) 5 mg PO HS PRN PRN Reason: INSOMNIA Metoprolol Tartrate (Lopressor -) 50 mg PO BID [facility] Neomycin/Polymyxin/Hydrocortisone (Cortisporin Otic Solution -) 4 drop AD Q6HPO [facility] Pancrelipase (Creon Dr 36,000 Units Capsule) 1 cap PO TIDCM [facility] Rifaximin (Xifaxan -) 550 mg PO TID [facility] Simethicone (Mylicon -) 80 mg PO QID PRN PRN Reason: GAS Sitagliptin Phosphate (Januvia -) 25 mg PO DAILY@0700 [facility] Sodium Bicarbonate (Sodium Bicarbonate -) 1,300 mg PO TID [facility] Sodium Zirconium Cyclosilicate (Lokelma) 10 gm PO DAILY [facility] - Objective Vital Signs: Vital Signs Temperature 97.6 F 09/20/19 13:15 Pulse Rate 68 09/20/19 14:00 Respiratory Rate 16 09/20/19 14:00 Blood Pressure 162/63 09/20/19 14:00 O2 Sat by Pulse Oximetry (%) 97 09/20/19 14:00 Constitutional: Yes: Calm Neck: Yes: Other (permacath) Cardiovascular: Yes: Regular Rate and Rhythm, S1, S2 Respiratory: Yes: CTA Bilaterally Gastrointestinal: Yes: Normal Bowel Sounds, Soft Extremities: Yes: Other (scd) Labs: CBC, BMP 09/20/19 07:35 09/20/19 07:35 INR, PTT INR 1.23 (0.83-1.09) H 09/14/19 05:27 Problem List - Problems (1) CKD (chronic kidney disease) Assessment/Plan: insertion of permacth today HD in AM Code(s): N18.9 - CHRONIC KIDNEY DISEASE, UNSPECIFIED Qualifiers: Chronic kidney disease stage: unspecified stage Qualified Code(s): N18.9 - Chronic kidney disease, unspecified (2) Nausea Assessment/Plan: improved got HD on the weeknd Code(s): R11.0 - NAUSEA (3) Acute hyperkalemia Assessment/Plan: resolved Code(s): E87.5 - HYPERKALEMIA (4) Anemia Assessment/Plan: patient does not want epogen hermilo get pRbc today with iv lasix Code(s): D64.9 - ANEMIA, UNSPECIFIED (5) Elevated troponin Code(s): R79.89 - OTHER SPECIFIED ABNORMAL FINDINGS OF BLOOD CHEMISTRY (6) COPD (chronic obstructive pulmonary disease) Code(s): J44.9 - CHRONIC OBSTRUCTIVE PULMONARY DISEASE, UNSPECIFIED
--- NOTE | 2019-09-20 15:19 | PN ---
Progress Note, Physician History of Present Illness: Pt seen and examined at bedside. She is in the recovery room. She had the permacath placed. - Current Medication List Current Medications: Active Medications Calcium Acetate (Phoslo -) 667 mg PO TIDCM [facility] Calcium Carbonate/Cholecalciferol (Os-Sergey 500+D -) 1 tab PO DAILY [facility] Famotidine (Pepcid -) 20 mg PO DAILY [facility] Furosemide (Lasix -) 80 mg PO DAILY [facility] Hydralazine HCl (Apresoline -) 50 mg PO BID [facility] Insulin Aspart (Novolog Vial Sliding Scale -) 1 vial SQ TIDAC [facility]; Protocol Melatonin (Melatonin) 5 mg PO HS PRN PRN Reason: INSOMNIA Metoprolol Tartrate (Lopressor -) 50 mg PO BID [facility] Neomycin/Polymyxin/Hydrocortisone (Cortisporin Otic Solution -) 4 drop AD Q6HPO [facility] Pancrelipase (Creon Dr 36,000 Units Capsule) 1 cap PO TIDCM [facility] Rifaximin (Xifaxan -) 550 mg PO TID [facility] Simethicone (Mylicon -) 80 mg PO QID PRN PRN Reason: GAS Sitagliptin Phosphate (Januvia -) 25 mg PO DAILY@0700 [facility] Sodium Bicarbonate (Sodium Bicarbonate -) 1,300 mg PO TID [facility] Sodium Zirconium Cyclosilicate (Lokelma) 10 gm PO DAILY [facility] - Objective Vital Signs: Vital Signs Temperature 97.6 F 09/20/19 13:15 Pulse Rate 68 09/20/19 14:00 Respiratory Rate 16 09/20/19 14:00 Blood Pressure 162/63 09/20/19 14:00 O2 Sat by Pulse Oximetry (%) 97 09/20/19 14:00 Constitutional: Yes: Calm Eyes: Yes: Conjunctiva Clear HENT: Yes: Atraumatic Neck: Yes: Supple Cardiovascular: Yes: S1, S2 Respiratory: Yes: On Nasal O2 Gastrointestinal: Yes: Soft, Abdomen, Obese Genitourinary: Yes: WNL Musculoskeletal: Yes: WNL Edema: No Neurological: Yes: Oriented Psychiatric: Yes: Oriented Labs: CBC, BMP 09/20/19 07:35 09/20/19 07:35 INR, PTT INR 1.23 (0.83-1.09) H 09/14/19 05:27 Problem List - Problems (1) Anemia Code(s): D64.9 - ANEMIA, UNSPECIFIED (2) Abnormal EKG Code(s): R94.31 - ABNORMAL ELECTROCARDIOGRAM [ECG] [EKG] (3) Acute CHF (congestive heart failure) Code(s): I50.9 - HEART FAILURE, UNSPECIFIED (4) CAD (coronary artery disease) Code(s): I25.10 - ATHSCL HEART DISEASE OF [place] CORONARY ARTERY W/O ANG PCTRS (5) CKD (chronic kidney disease) Code(s): N18.9 - CHRONIC KIDNEY DISEASE, UNSPECIFIED Qualifiers: Qualified Code(s): N18.9 - Chronic kidney disease, unspecified Assessment/Plan Current Medications Generic Name Dose Route Start Last Admin Trade Name Freq PRN Reason Stop Dose Admin Calcium Acetate 667 mg 09/20/19 17:30 Phoslo - PO TIDCM [facility] Calcium Carbonate/Cholecalciferol 1 tab 09/21/19 10:00 Os-Sergey 500+D - PO DAILY [facility] Famotidine 20 mg 09/21/19 10:00 Pepcid - PO DAILY [facility] Furosemide 80 mg 09/21/19 10:00 Lasix - PO DAILY [facility] Hydralazine HCl 50 mg 09/20/19 22:00 Apresoline - PO BID [facility] Insulin Aspart 1 vial 09/20/19 16:30 Novolog Vial Sliding Scale - SQ TIDAC [facility] Protocol Melatonin 5 mg 09/20/19 13:49 Melatonin PO HS PRN INSOMNIA Metoprolol Tartrate 50 mg 09/20/19 22:00 Lopressor - PO BID [facility] Neomycin/Polymyxin/Hydrocortisone 4 drop 09/20/19 18:00 Cortisporin Otic Solution - AD Q6HPO ALDO Pancrelipase 1 cap 09/20/19 17:[address] 36,000 Units Capsule PO TIDCM [facility] Rifaximin 550 mg 09/20/19 14:00 Xifaxan - PO TID [facility] Simethicone 80 mg 09/20/19 13:49 Mylicon - PO QID PRN GAS Sitagliptin Phosphate 25 mg 09/21/19 07:00 Januvia - PO DAILY@0700 [facility] Sodium Bicarbonate 1,300 mg 09/20/19 14:00 Sodium Bicarbonate - PO TID [facility] Sodium Zirconium Cyclosilicate 10 gm 09/21/19 10:00 Lokelma PO DAILY ALDO Impression 1. CKD 2. anemia 3. CHF 4. HTN 5. DM 6. hyperlipidemia 7. anxiety 8. uterine cancer 9. hx GI bleed 10. COPD 11. breast cancer 12. hyperkalemia 13. ESRD Plan - HD tomorrow - d/c lokelma - d/c sodium bicarb - lasix with prbc - renal diet
[2019-09-20] MEDS ORDERED: SODIUM CHLORIDE 250 ML IV PRN (15:20)
[2019-09-20] MEDS ORDERED: FUROSEMIDE 40 MG/4 ML INJECTABLE VIAL IVPUSH ONE (15:30)
[2019-09-20] MEDS: hydrALAZINE HCL 50 MG TABLET (FP) PO SCH (21:21)
[2019-09-21] MEDS: NEOMYCIN/POLYMYXN/HC OTIC SOLUTION 10 ML BOTTLE AD SCH ×4 (01:19→17:13)
[2019-09-21] MEDS: MELATONIN 5 MG TABLETS PO PRN ×2 (01:19→22:37)
[2019-09-21] MEDS: INSULIN SLIDING SCALE (NOVOLOG) 1 VIAL SQ SCH ×3 (06:18→17:12)
[2019-09-21] MEDS: RIFAXIMIN 550 MG TABLET (UD) PO SCH ×3 (06:39→21:58)
--- NOTE | 2019-09-21 08:11 | PN ---
Progress Note (short form) - Note Progress Note: VASCULAR SURGERY POD #1 Alert. No complaints. Denies n/v/f/c, CP, palpitations, SOB or HOWARD. AVSS. Afebrile. Gen: nad Right chest: PC intact. dressing c/d/i Problem List - Problems (1) CKD (chronic kidney disease) stage 3, GFR 30-59 ml/min Assessment/Plan: POD 1 s/p PC insertion HD via PC Cont medical management No further surgical intervention planned Re-consult PRN On behalf of Dr. Churchill, thank you for the opportunity to participate in your patient's care. Code(s): N18.3 - CHRONIC KIDNEY DISEASE, STAGE 3 (MODERATE) (2) Acute on chronic systolic (congestive) heart failure Code(s): I50.23 - ACUTE ON CHRONIC SYSTOLIC (CONGESTIVE) HEART FAILURE (3) Anemia Code(s): D64.9 - ANEMIA, UNSPECIFIED (4) Asthma Code(s): J45.909 - UNSPECIFIED ASTHMA, UNCOMPLICATED (5) CAD (coronary artery disease) Code(s): I25.10 - ATHSCL HEART DISEASE OF [place] CORONARY ARTERY W/O ANG PCTRS Qualifiers: Coronary Disease-Associated Artery/Lesion type: [place] coronary artery Associated angina: with other forms of angina pectoris (6) CHF (congestive heart failure) Code(s): I50.9 - HEART FAILURE, UNSPECIFIED (7) Controlled type 2 diabetes mellitus with diabetic peripheral angiopathy without gangrene Code(s): E11.51 - TYPE 2 DIABETES W DIABETIC PERIPHERAL ANGIOPATH W/O GANGRENE
[2019-09-21] MEDS ORDERED: PT OWN MED DRAWER 7, Y5N ONE ×2 (08:13→11:36)
[2019-09-21] MEDS: LIPASE/PROTEASE/AMYLASE 36,000 UNIT CAPSULE PO SCH ×3 (08:23→17:12)
[2019-09-21] MEDS: CALCIUM ACETATE 667 MG CAPSULE (FP) PO SCH ×3 (08:23→17:12)
--- NOTE | 2019-09-21 08:35 | PN ---
Progress Note, Physician - Current Medication List Current Medications: Active Medications Calcium Acetate (Phoslo -) 667 mg PO TIDCM [facility] Last Admin: 09/21/19 08:23 Dose: 667 mg Calcium Carbonate/Cholecalciferol (Os-Sergey 500+D -) 1 tab PO DAILY [facility] Famotidine (Pepcid -) 20 mg PO DAILY [facility] Furosemide (Lasix -) 80 mg PO Q48H [facility] Hydralazine HCl (Apresoline -) 50 mg PO BID [facility] Last Admin: 09/20/19 21:21 Dose: 50 mg Sodium Chloride (Normal Saline -) 250 mls @ 3,000 mls/hr IV PRN PRN PRN Reason: Hypotension during Dialysis Stop: 09/21/19 15:20 Insulin Aspart (Novolog Vial Sliding Scale -) 1 vial SQ TIDAC [facility]; Protocol Last Admin: 09/21/19 06:18 Dose: Not Given Melatonin (Melatonin) 5 mg PO HS PRN PRN Reason: INSOMNIA Last Admin: 09/21/19 01:19 Dose: 5 mg Metoprolol Tartrate (Lopressor -) 50 mg PO BID [facility] Last Admin: 09/20/19 21:21 Dose: 50 mg Neomycin/Polymyxin/Hydrocortisone (Cortisporin Otic Solution -) 4 drop AD Q6HPO [facility] Last Admin: 09/21/19 06:17 Dose: 4 drop Pancrelipase (Creon Dr 36,000 Units Capsule) 1 cap PO TIDCM [facility] Last Admin: 09/21/19 08:23 Dose: 1 cap Rifaximin (Xifaxan -) 550 mg PO TID [facility] Last Admin: 09/21/19 06:39 Dose: 550 mg Simethicone (Mylicon -) 80 mg PO QID PRN PRN Reason: GAS Sitagliptin Phosphate (Januvia -) 25 mg PO DAILY@0700 [facility] Last Admin: 09/21/19 06:19 Dose: Not Given - Objective Vital Signs: Vital Signs Temperature 99.0 F 09/21/19 06:00 Pulse Rate 63 09/21/19 06:00 Respiratory Rate 18 09/21/19 06:00 Blood Pressure 155/66 09/21/19 06:00 O2 Sat by Pulse Oximetry (%) 92 L 09/20/19 21:00 Neck: Yes: Other (perma cath) Cardiovascular: Yes: S1, S2 Respiratory: Yes: Regular, CTA Bilaterally Gastrointestinal: Yes: Normal Bowel Sounds, Soft. No: Tenderness Labs: CBC, BMP 09/20/19 07:35 09/20/19 07:35 INR, PTT INR 1.23 (0.83-1.09) H 09/14/19 05:27 Assessment/Plan - Problems (1) Anemia Assessment/Plan: -likely 2/2 to CKD -PRBC with Dialysis -Nephrology on board -Hematology on board -Stool OB negative -Iron profile, thyroid+ B12 unremarkable Problems reviewed: Yes Code(s): D64.9 - ANEMIA, UNSPECIFIED (2) Elevated troponin Assessment/Plan: -No S&S of ACS -Elevation could be false+ 2/2 to CKD -Seen by Cardiology Problems reviewed: Yes Code(s): R79.89 - OTHER SPECIFIED ABNORMAL FINDINGS OF BLOOD CHEMISTRY (3) Acute CHF (congestive heart failure) Assessment/Plan: -CXR negative for effusions -Cardiology on board -Continue furosemide 80 mg po daily--Dialysis -BNP elevation could also be false + 2/2 to CKD -Denies SOB Problems reviewed: Yes Code(s): I50.9 - HEART FAILURE, UNSPECIFIED (4) Diabetes mellitus Assessment/Plan: -A1c at 7.1 -BGM AC HS -Novolog sliding scale -Diabetic/renal diet -Start Januvia 25 mg po daily Problems reviewed: Yes Code(s): E11.9 - TYPE 2 DIABETES MELLITUS WITHOUT COMPLICATIONS (5) CKD (chronic kidney disease) Assessment/Plan: -Nephrology on board -Monitor Cr -Off lokelma -Perma cath placed for dialysis Problems reviewed: Yes Code(s): N18.9 - CHRONIC KIDNEY DISEASE, UNSPECIFIED Qualifiers: Chronic kidney disease stage: unspecified stage Qualified Code(s): N18.9 - Chronic kidney disease, unspecified
[2019-09-21] MEDS ORDERED: FUROSEMIDE 40 MG TABLET (FP) PO SCH (10:00)
[2019-09-21] MEDS ORDERED: SODIUM ZIRCONIUM CYCLOSILICATE (LOKELMA) 5 GM PACKET PO SCH (10:00)
[2019-09-21] MEDS: FAMOTIDINE 20 MG TABLET PO SCH (10:08)
[2019-09-21] MEDS: METOPROLOL TARTRATE 50 MG TABLET (FP) PO SCH ×2 (10:08→21:56)
[2019-09-21] MEDS: CALCIUM 500MG/VIT-D 200 UNITS COMBO TABLET (FP) PO SCH (10:08)
[2019-09-21] MEDS: hydrALAZINE HCL 50 MG TABLET (FP) PO SCH ×2 (10:08→21:56)
--- NOTE | 2019-09-21 10:36 | PN ---
Progress Note (short form) - Note Progress Note: s: no chest pain palps dizziness, dyspnea Current Medications Calcium Acetate (Phoslo -) 667 mg PO TIDCM [facility] Last Admin: 09/21/19 08:23 Dose: 667 mg Calcium Carbonate/Cholecalciferol (Os-Sergey 500+D -) 1 tab PO DAILY [facility] Last Admin: 09/21/19 10:08 Dose: 1 tab Famotidine (Pepcid -) 20 mg PO DAILY [facility] Last Admin: 09/21/19 10:08 Dose: 20 mg Furosemide (Lasix -) 80 mg PO Q48H [facility] Hydralazine HCl (Apresoline -) 50 mg PO BID [facility] Last Admin: 09/21/19 10:08 Dose: 50 mg Sodium Chloride (Normal Saline -) 250 mls @ 3,000 mls/hr IV PRN PRN PRN Reason: Hypotension during Dialysis Stop: 09/21/19 15:20 Insulin Aspart (Novolog Vial Sliding Scale -) 1 vial SQ TIDAC [facility]; Protocol Last Admin: 09/21/19 06:18 Dose: Not Given Melatonin (Melatonin) 5 mg PO HS PRN PRN Reason: INSOMNIA Last Admin: 09/21/19 01:19 Dose: 5 mg Metoprolol Tartrate (Lopressor -) 50 mg PO BID [facility] Last Admin: 09/21/19 10:08 Dose: 50 mg Neomycin/Polymyxin/Hydrocortisone (Cortisporin Otic Solution -) 4 drop AD Q6HPO [facility] Last Admin: 09/21/19 06:17 Dose: 4 drop Pancrelipase (Creon Dr 36,000 Units Capsule) 1 cap PO TIDCM [facility] Last Admin: 09/21/19 08:23 Dose: 1 cap Rifaximin (Xifaxan -) 550 mg PO TID [facility] Last Admin: 09/21/19 06:39 Dose: 550 mg Simethicone (Mylicon -) 80 mg PO QID PRN PRN Reason: GAS Sitagliptin Phosphate (Januvia -) 25 mg PO DAILY@0700 [facility] Last Admin: 09/21/19 06:19 Dose: Not Given Vital Signs Period Temp Pulse Resp BP Sys/Padron Pulse Ox Last 24 Hr 97.5 F-99.0 F 63-74 13-20 128-179/62-80 92-100 Constitutional: Yes: No Distress, Calm Cardiovascular: Yes: Regular Rate and Rhythm Respiratory: Yes: Other (decreased breaths sounds b/l; no active wheezing.) Gastrointestinal: Yes: Soft Edema: No Neurological: Yes: Alert, Oriented no jaundice, diaphoresis not agitated - ....Imaging EKG: Image Reviewed Assessment/Plan DATA Echo 08/03: mod LVE, mod decr EF (global). nl RV. mild-mod MR, mod TR. RVSP 45. LHC 06/29: nl EDP; EF 40% (global); 50-60% OM1 (normal FFR); mild dz others MIBI 06/29 (pers): no STs; moder, partly rev defect AW c/w ischemia; mild LVE, mild-mod global LV hypo (40% EF); MILD TID MIBI 08/27 (pers): no ST change; TDS perfusion b/c of GI artifact and gating artifact; mild LV dilation and mild decr EFvisually (no TID) CXR: cardiomegaly, no congestion echo 05/2018 LV mildly dilated, borderline reduced LV function, grade II diastolic dysfunction, elevated filling pressures, LA mildly dilated, mild MAC, mild MR, mod TR, PASP at least 59 mmHg, no effusion EKG: sinus, nl intervals, no ischemic changes echo 08/2019 mild global hypokinesis EF 45%, RV nl, RA mod dilated, tr-mild MR, mod TR, RVSP at least 55 mmHg, severe pulm HTN tele: sinus, artifact ASSESSMENT/PLAN 63 yo smoker with h/o systolic cardiomyopathy, non-obstructive cad, HTN, HL, pHTN, PAD, mod PARVEZ on cpap, CKD (cr 1.8 - 2.2), DM, h/o GIB s/p cauterization of avm's, breast cancer p/w abnormal labs LYSSA, hyperkalemia: - now s/p permacath, on HD - labs improved - lasix per renal elevated trop: - likely demand in setting of LYSSA, no signs ACS - echo mildly reduced LV function chronic systolic CHF: -borderline reduced LV function 2017, on lasix at home - BNP >63565 in setting of LYSSA - started on HD, lasix per renal. - echo as above - not on EVELINA/ARB due to recurrent severe hyperkalemia - cont bb anemia: - heme consulted, stool guaiac negative. Chronic ischemic heart disease: - nonobstructive OM dz inc FFR negative, no history of angina -continue statin - no asa - hx anemia Essential hypertension: at goal -cont hydralazine, beta [place] Chronic obstructive pulmonary disease -STABLE ON BB LONG TIME -no current sx's Obstructive sleep apnea -USES CPAP AT HOME and intermittently here. breast ca -manage per heme/onc PAD: - known h/o obstructive RLE disease, claudication--deferred [employer]UC[employer]OF[employer] perviously due to risks of contrast nephropathy DC tele
--- NOTE | 2019-09-21 11:49 | PN ---
Progress Note, Physician History of Present Illness: PULMONARY ALERT,NO DISTRESS,-SOB - Current Medication List Current Medications: Active Medications Calcium Acetate (Phoslo -) 667 mg PO TIDCM [facility] Last Admin: 09/21/19 08:23 Dose: 667 mg Calcium Carbonate/Cholecalciferol (Os-Sergey 500+D -) 1 tab PO DAILY [facility] Last Admin: 09/21/19 10:08 Dose: 1 tab Famotidine (Pepcid -) 20 mg PO DAILY [facility] Last Admin: 09/21/19 10:08 Dose: 20 mg Furosemide (Lasix -) 80 mg PO Q48H [facility] Hydralazine HCl (Apresoline -) 50 mg PO BID [facility] Last Admin: 09/21/19 10:08 Dose: 50 mg Sodium Chloride (Normal Saline -) 250 mls @ 3,000 mls/hr IV PRN PRN PRN Reason: Hypotension during Dialysis Stop: 09/21/19 15:20 Insulin Aspart (Novolog Vial Sliding Scale -) 1 vial SQ TIDAC [facility]; Protocol Last Admin: 09/21/19 06:18 Dose: Not Given Melatonin (Melatonin) 5 mg PO HS PRN PRN Reason: INSOMNIA Last Admin: 09/21/19 01:19 Dose: 5 mg Metoprolol Tartrate (Lopressor -) 50 mg PO BID [facility] Last Admin: 09/21/19 10:08 Dose: 50 mg Neomycin/Polymyxin/Hydrocortisone (Cortisporin Otic Solution -) 4 drop AD Q6HPO [facility] Last Admin: 09/21/19 06:17 Dose: 4 drop Pancrelipase (Creon Dr 36,000 Units Capsule) 1 cap PO TIDCM [facility] Last Admin: 09/21/19 08:23 Dose: 1 cap Rifaximin (Xifaxan -) 550 mg PO TID [facility] Last Admin: 09/21/19 06:39 Dose: 550 mg Simethicone (Mylicon -) 80 mg PO QID PRN PRN Reason: GAS Sitagliptin Phosphate (Januvia -) 25 mg PO DAILY@0700 [facility] Last Admin: 09/21/19 06:19 Dose: Not Given - Objective Vital Signs: Vital Signs Temperature 98.9 F 09/21/19 10:00 Pulse Rate 63 09/21/19 10:00 Respiratory Rate 18 09/21/19 10:00 Blood Pressure 139/76 09/21/19 10:00 O2 Sat by Pulse Oximetry (%) 90 L 09/21/19 09:00 Constitutional: Yes: Well Nourished, Calm Eyes: Yes: WNL HENT: Yes: WNL Neck: Yes: WNL Cardiovascular: Yes: Regular Rate and Rhythm, S1, S2 Respiratory: Yes: CTA Bilaterally Gastrointestinal: Yes: Normal Bowel Sounds, Soft Extremities: Yes: WNL Edema: No Labs: CBC, BMP Problem List - Problems (1) Acute on chronic systolic (congestive) heart failure Code(s): I50.23 - ACUTE ON CHRONIC SYSTOLIC (CONGESTIVE) HEART FAILURE (2) Acute on chronic systolic (congestive) heart failure Code(s): I50.23 - ACUTE ON CHRONIC SYSTOLIC (CONGESTIVE) HEART FAILURE (3) Anemia Code(s): D64.9 - ANEMIA, UNSPECIFIED (4) Acute hyperkalemia Code(s): E87.5 - HYPERKALEMIA (5) Benign hypertension Code(s): I10 - ESSENTIAL (PRIMARY) HYPERTENSION (6) CAD (coronary artery disease) Code(s): I25.10 - ATHSCL HEART DISEASE OF [place] CORONARY ARTERY W/O ANG PCTRS Qualifiers: Coronary Disease-Associated Artery/Lesion type: [place] coronary artery Associated angina: with other forms of angina pectoris (7) CKD (chronic kidney disease) Code(s): N18.9 - CHRONIC KIDNEY DISEASE, UNSPECIFIED Qualifiers: Chronic kidney disease stage: unspecified stage Qualified Code(s): N18.9 - Chronic kidney disease, unspecified (8) Controlled type 2 diabetes mellitus with diabetic peripheral angiopathy without gangrene Code(s): E11.51 - TYPE 2 DIABETES W DIABETIC PERIPHERAL ANGIOPATH W/O GANGRENE (9) Edema Code(s): R60.9 - EDEMA, UNSPECIFIED Qualifiers: Edema type: generalized Qualified Code(s): R60.1 - Generalized edema (10) HTN (hypertension) Code(s): I10 - ESSENTIAL (PRIMARY) HYPERTENSION (11) Hyperkalemia Code(s): E87.5 - HYPERKALEMIA (12) Nausea Code(s): R11.0 - NAUSEA (13) PARVEZ on CPAP Code(s): G47.33 - OBSTRUCTIVE SLEEP APNEA (ADULT) (PEDIATRIC) (14) PVD (peripheral vascular disease) Code(s): I73.9 - PERIPHERAL VASCULAR DISEASE, UNSPECIFIED (15) Pulmonary hypertension Code(s): I27.2 - OTHER SECONDARY PULMONARY HYPERTENSION * DO NOT USE * (16) SOB (shortness of breath) Code(s): R06.02 - SHORTNESS OF BREATH (17) Sleep apnea, obstructive Code(s): G47.33 - OBSTRUCTIVE SLEEP APNEA (ADULT) (PEDIATRIC) (18) Smoker Code(s): F17.200 - NICOTINE DEPENDENCE, UNSPECIFIED, UNCOMPLICATED (19) Smoker unmotivated to quit Code(s): F17.210 - NICOTINE DEPENDENCE, CIGARETTES, UNCOMPLICATED (20) Weakness Code(s): R53.1 - WEAKNESS Assessment/Plan IMP DYSPNEA IMPROVED ACUTE ON CHRONIC SYSTOLIC CHF IMPROVING PULMONARY HTN ASHD ACUTE ON CHRONIC KIDNEY FAILURE HYPERKALEMIA PARVEZ PT NON-COMPLIANT WITH CPAP COPD SMOKER ANEMIA HTN HLD DM H/O GIB NAUSEA H/O BREAST CA PLAN LASIX PER RENAL O2 HD PER RENAL INHALED BRONCHODILATORS MONITOR LYTES ,RENAL FUNCTION MONITOR H+H NORMAL TRANSFUSION THRESHOLD SMOKING CESSATION COUNSELED DAILY WTS DR HARO Problem List - Problems (1) Acute on chronic systolic (congestive) heart failure Code(s): I50.23 - ACUTE ON CHRONIC SYSTOLIC (CONGESTIVE) HEART FAILURE (2) Acute on chronic systolic (congestive) heart failure Code(s): I50.23 - ACUTE ON CHRONIC SYSTOLIC (CONGESTIVE) HEART FAILURE (3) Anemia Code(s): D64.9 - ANEMIA, UNSPECIFIED (4) Acute hyperkalemia Code(s): E87.5 - HYPERKALEMIA (5) Benign hypertension Code(s): I10 - ESSENTIAL (PRIMARY) HYPERTENSION (6) CAD (coronary artery disease) Code(s): I25.10 - ATHSCL HEART DISEASE OF [place] CORONARY ARTERY W/O ANG PCTRS Qualifiers: Coronary Disease-Associated Artery/Lesion type: [place] coronary artery Associated angina: with other forms of angina pectoris (7) CKD (chronic kidney disease) Code(s): N18.9 - CHRONIC KIDNEY DISEASE, UNSPECIFIED Qualifiers: Chronic kidney disease stage: unspecified stage Qualified Code(s): N18.9 - Chronic kidney disease, unspecified (8) Controlled type 2 diabetes mellitus with diabetic peripheral angiopathy without gangrene Code(s): E11.51 - TYPE 2 DIABETES W DIABETIC PERIPHERAL ANGIOPATH W/O GANGRENE (9) Edema Code(s): R60.9 - EDEMA, UNSPECIFIED Qualifiers: Edema type: generalized Qualified Code(s): R60.1 - Generalized edema (10) HTN (hypertension) Code(s): I10 - ESSENTIAL (PRIMARY) HYPERTENSION (11) Hyperkalemia Code(s): E87.5 - HYPERKALEMIA (12) Nausea Code(s): R11.0 - NAUSEA (13) PARVEZ on CPAP Code(s): G47.33 - OBSTRUCTIVE SLEEP APNEA (ADULT) (PEDIATRIC) (14) PVD (peripheral vascular disease) Code(s): I73.9 - PERIPHERAL VASCULAR DISEASE, UNSPECIFIED (15) Pulmonary hypertension Code(s): I27.2 - OTHER SECONDARY PULMONARY HYPERTENSION * DO NOT USE * (16) SOB (shortness of breath) Code(s): R06.02 - SHORTNESS OF BREATH (17) Sleep apnea, obstructive Code(s): G47.33 - OBSTRUCTIVE SLEEP APNEA (ADULT) (PEDIATRIC) (18) Smoker Code(s): F17.200 - NICOTINE DEPENDENCE, UNSPECIFIED, UNCOMPLICATED (19) Smoker unmotivated to quit Code(s): F17.210 - NICOTINE DEPENDENCE, CIGARETTES, UNCOMPLICATED (20) Weakness Code(s): R53.1 - WEAKNESS
--- NOTE | 2019-09-21 14:57 | PN ---
Progress Note, Physician History of Present Illness: Pt seen and examined at bedside. She is awake and alert. She is tolerating HD. - Current Medication List Current Medications: Active Medications Calcium Acetate (Phoslo -) 667 mg PO TIDCM [facility] Last Admin: 09/21/19 12:55 Dose: Not Given Calcium Carbonate/Cholecalciferol (Os-Sergey 500+D -) 1 tab PO DAILY [facility] Last Admin: 09/21/19 10:08 Dose: 1 tab Famotidine (Pepcid -) 20 mg PO DAILY [facility] Last Admin: 09/21/19 10:08 Dose: 20 mg Furosemide (Lasix -) 80 mg PO Q48H [facility] Hydralazine HCl (Apresoline -) 50 mg PO BID [facility] Last Admin: 09/21/19 10:08 Dose: 50 mg Sodium Chloride (Normal Saline -) 250 mls @ 3,000 mls/hr IV PRN PRN PRN Reason: Hypotension during Dialysis Stop: 09/21/19 15:20 Insulin Aspart (Novolog Vial Sliding Scale -) 1 vial SQ TIDAC [facility]; Protocol Last Admin: 09/21/19 11:47 Dose: Not Given Melatonin (Melatonin) 5 mg PO HS PRN PRN Reason: INSOMNIA Last Admin: 09/21/19 01:19 Dose: 5 mg Metoprolol Tartrate (Lopressor -) 50 mg PO BID [facility] Last Admin: 09/21/19 10:08 Dose: 50 mg Neomycin/Polymyxin/Hydrocortisone (Cortisporin Otic Solution -) 4 drop AD Q6HPO [facility] Last Admin: 09/21/19 12:55 Dose: Not Given Pancrelipase (Creon Dr 36,000 Units Capsule) 1 cap PO TIDCM [facility] Last Admin: 09/21/19 12:55 Dose: Not Given Rifaximin (Xifaxan -) 550 mg PO TID [facility] Last Admin: 09/21/19 06:39 Dose: 550 mg Simethicone (Mylicon -) 80 mg PO QID PRN PRN Reason: GAS Sitagliptin Phosphate (Januvia -) 25 mg PO DAILY@0700 [facility] Last Admin: 09/21/19 06:19 Dose: Not Given - Objective Vital Signs: Vital Signs Temperature 98.2 F 09/21/19 12:10 Pulse Rate 66 09/21/19 12:15 Respiratory Rate 18 09/21/19 12:15 Blood Pressure 142/73 09/21/19 12:15 O2 Sat by Pulse Oximetry (%) 90 L 09/21/19 09:00 Constitutional: Yes: Calm Eyes: Yes: Conjunctiva Clear HENT: Yes: Atraumatic Neck: Yes: Supple Cardiovascular: Yes: S1, S2 Respiratory: Yes: CTA Bilaterally Gastrointestinal: Yes: Soft Genitourinary: Yes: WNL Musculoskeletal: Yes: WNL Edema: No Neurological: Yes: Oriented Labs: CBC, BMP 09/20/19 07:35 09/20/19 07:35 INR, PTT INR 1.23 (0.83-1.09) H 09/14/19 05:27 Problem List - Problems (1) Anemia Code(s): D64.9 - ANEMIA, UNSPECIFIED (2) Abnormal EKG Code(s): R94.31 - ABNORMAL ELECTROCARDIOGRAM [ECG] [EKG] (3) Acute CHF (congestive heart failure) Code(s): I50.9 - HEART FAILURE, UNSPECIFIED (4) CAD (coronary artery disease) Code(s): I25.10 - ATHSCL HEART DISEASE OF [place] CORONARY ARTERY W/O ANG PCTRS Qualifiers: Coronary Disease-Associated Artery/Lesion type: [place] coronary artery Associated angina: with other forms of angina pectoris (5) CKD (chronic kidney disease) Code(s): N18.9 - CHRONIC KIDNEY DISEASE, UNSPECIFIED Qualifiers: Chronic kidney disease stage: unspecified stage Qualified Code(s): N18.9 - Chronic kidney disease, unspecified Assessment/Plan Current Medications Generic Name Dose Route Start Last Admin Trade Name Anupq PRN Reason Stop Dose Admin Calcium Acetate 667 mg 09/20/19 17:30 09/21/19 12:55 Phoslo - PO Not Given TIDCM [facility] Calcium Carbonate/Cholecalciferol 1 tab 09/21/19 10:00 09/21/19 10:08 Os-Sergey 500+D - PO 1 tab DAILY [facility] Administration Famotidine 20 mg 09/21/19 10:00 09/21/19 10:08 Pepcid - PO 20 mg DAILY [facility] Administration Furosemide 80 mg 09/22/19 10:00 Lasix - PO Q48H [facility] Hydralazine HCl 50 mg 09/20/19 22:00 09/21/19 10:08 Apresoline - PO 50 mg BID [facility] Administration Sodium Chloride 250 mls @ 3,000 mls/hr 09/20/19 15:20 Normal Saline - IV 09/21/19 15:20 PRN PRN Hypotension during Dialysis Insulin Aspart 1 vial 09/20/19 16:30 09/21/19 11:47 Novolog Vial Sliding Scale - SQ Not Given TIDAC [facility] Protocol Melatonin 5 mg 09/20/19 13:49 09/21/19 01:19 Melatonin PO 5 mg HS PRN Administration INSOMNIA Metoprolol Tartrate 50 mg 09/20/19 22:00 09/21/19 10:08 Lopressor - PO 50 mg BID [facility] Administration Neomycin/Polymyxin/Hydrocortisone 4 drop 09/20/19 18:00 09/21/19 12:55 Cortisporin Otic Solution - AD Not Given Q6HPO [facility] Pancrelipase 1 cap 09/20/19 17:30 09/21/19 12:[address] 36,000 Units Capsule PO Not Given TIDCM [facility] Rifaximin 550 mg 09/20/19 14:00 09/21/19 06:39 Xifaxan - PO 550 mg TID [facility] Administration Simethicone 80 mg 09/20/19 13:49 Mylicon - PO QID PRN GAS Sitagliptin Phosphate 25 mg 09/21/19 07:00 09/21/19 06:19 Januvia - PO Not Given DAILY@0700 [facility] Impression 1. CKD 2. anemia 3. CHF 4. HTN 5. DM 6. hyperlipidemia 7. anxiety 8. uterine cancer 9. hx GI bleed 10. COPD 11. breast cancer 12. hyperkalemia 13. ESRD Plan - HD today - prbc with HD - pt does not want epogen - potassium improved - renal diet
[2019-09-22] MEDS: NEOMYCIN/POLYMYXN/HC OTIC SOLUTION 10 ML BOTTLE AD SCH ×5 (00:24→23:23)
[2019-09-22] MEDS: INSULIN SLIDING SCALE (NOVOLOG) 1 VIAL SQ SCH ×3 (06:12→17:12)
[2019-09-22] MEDS: RIFAXIMIN 550 MG TABLET (UD) PO SCH ×3 (06:12→22:21)
[2019-09-22] MEDS: LIPASE/PROTEASE/AMYLASE 36,000 UNIT CAPSULE PO SCH ×3 (08:22→17:15)
[2019-09-22] MEDS: CALCIUM ACETATE 667 MG CAPSULE (FP) PO SCH ×3 (08:22→17:13)
--- NOTE | 2019-09-22 08:47 | PN ---
Progress Note, Physician - Current Medication List Current Medications: Active Medications Calcium Acetate (Phoslo -) 667 mg PO TIDCM [facility] Last Admin: 09/22/19 08:22 Dose: 667 mg Calcium Carbonate/Cholecalciferol (Os-Sergey 500+D -) 1 tab PO DAILY [facility] Last Admin: 09/21/19 10:08 Dose: 1 tab Famotidine (Pepcid -) 20 mg PO DAILY [facility] Last Admin: 09/21/19 10:08 Dose: 20 mg Furosemide (Lasix -) 80 mg PO Q48H [facility] Hydralazine HCl (Apresoline -) 50 mg PO BID [facility] Last Admin: 09/21/19 21:56 Dose: 50 mg Sodium Chloride (Normal Saline -) 250 mls @ 3,000 mls/hr IV PRN PRN PRN Reason: Hypotension during Dialysis Stop: 09/21/19 15:20 Insulin Aspart (Novolog Vial Sliding Scale -) 1 vial SQ TIDAC [facility]; Protocol Last Admin: 09/22/19 06:12 Dose: Not Given Melatonin (Melatonin) 5 mg PO HS PRN PRN Reason: INSOMNIA Last Admin: 09/21/19 22:37 Dose: 5 mg Metoprolol Tartrate (Lopressor -) 50 mg PO BID [facility] Last Admin: 09/21/19 21:56 Dose: 50 mg Neomycin/Polymyxin/Hydrocortisone (Cortisporin Otic Solution -) 4 drop AD Q6HPO [facility] Last Admin: 09/22/19 06:12 Dose: 4 drop Pancrelipase (Creon Dr 36,000 Units Capsule) 1 cap PO TIDCM [facility] Last Admin: 09/22/19 08:22 Dose: 1 cap Rifaximin (Xifaxan -) 550 mg PO TID [facility] Last Admin: 09/22/19 06:12 Dose: 550 mg Simethicone (Mylicon -) 80 mg PO QID PRN PRN Reason: GAS Sitagliptin Phosphate (Januvia -) 25 mg PO DAILY@0700 [facility] Last Admin: 09/22/19 06:12 Dose: 25 mg - Objective Vital Signs: Vital Signs Temperature 98.3 F 09/22/19 06:00 Pulse Rate 95 H 09/22/19 07:48 Respiratory Rate 18 09/22/19 06:00 Blood Pressure 147/63 09/22/19 06:00 O2 Sat by Pulse Oximetry (%) 99 09/22/19 07:48 Cardiovascular: Yes: S1, S2 Respiratory: Yes: Regular, CTA Bilaterally Gastrointestinal: Yes: Normal Bowel Sounds, Soft Labs: CBC, BMP 09/20/19 07:35 09/20/19 07:35 INR, PTT INR 1.23 (0.83-1.09) H 09/14/19 05:27 Assessment/Plan - Problems (1) Anemia Assessment/Plan: -likely 2/2 to CKD -PRBC with Dialysis -Nephrology on board -Hematology on board -Stool OB negative -Iron profile, thyroid+ B12 unremarkable Problems reviewed: Yes Code(s): D64.9 - ANEMIA, UNSPECIFIED (2) Elevated troponin Assessment/Plan: -No S&S of ACS -Elevation could be false+ 2/2 to CKD -Seen by Cardiology Problems reviewed: Yes Code(s): R79.89 - OTHER SPECIFIED ABNORMAL FINDINGS OF BLOOD CHEMISTRY (3) Acute CHF (congestive heart failure) Assessment/Plan: -CXR negative for effusions -Cardiology on board -Continue furosemide 80 mg po daily--Dialysis -BNP elevation could also be false + 2/2 to CKD -Denies SOB Problems reviewed: Yes Code(s): I50.9 - HEART FAILURE, UNSPECIFIED (4) Diabetes mellitus Assessment/Plan: -A1c at 7.1 -BGM AC HS -Novolog sliding scale -Diabetic/renal diet -Start Januvia 25 mg po daily Problems reviewed: Yes Code(s): E11.9 - TYPE 2 DIABETES MELLITUS WITHOUT COMPLICATIONS (5) CKD (chronic kidney disease) Assessment/Plan: -Nephrology on board -Monitor Cr -Off lokelwa -Perma cath placed for dialysis Problems reviewed: Yes Code(s): N18.9 - CHRONIC KIDNEY DISEASE, UNSPECIFIED Qualifiers: Chronic kidney disease stage: unspecified stage Qualified Code(s): N18.9 - Chronic kidney disease, unspecified
[2019-09-22] MEDS: FAMOTIDINE 20 MG TABLET PO SCH (09:09)
[2019-09-22] MEDS: CALCIUM 500MG/VIT-D 200 UNITS COMBO TABLET (FP) PO SCH (09:09)
[2019-09-22] MEDS: METOPROLOL TARTRATE 50 MG TABLET (FP) PO SCH ×2 (09:09→22:21)
[2019-09-22] MEDS: hydrALAZINE HCL 50 MG TABLET (FP) PO SCH ×2 (09:09→22:21)
[2019-09-22] MEDS ORDERED: FUROSEMIDE 40 MG TABLET (FP) PO SCH (10:00)
--- NOTE | 2019-09-22 10:26 | PN ---
Progress Note (short form) - Note Progress Note: s: no chest pain palps dizziness, dyspnea Current Medications Calcium Acetate (Phoslo -) 667 mg PO TIDCM [facility] Last Admin: 09/22/19 08:22 Dose: 667 mg Calcium Carbonate/Cholecalciferol (Os-Sergey 500+D -) 1 tab PO DAILY [facility] Last Admin: 09/22/19 09:09 Dose: 1 tab Famotidine (Pepcid -) 20 mg PO DAILY [facility] Last Admin: 09/22/19 09:09 Dose: 20 mg Furosemide (Lasix -) 80 mg PO Q48H [facility] Last Admin: 09/22/19 09:09 Dose: 80 mg Hydralazine HCl (Apresoline -) 50 mg PO BID [facility] Last Admin: 09/22/19 09:09 Dose: 50 mg Sodium Chloride (Normal Saline -) 250 mls @ 3,000 mls/hr IV PRN PRN PRN Reason: Hypotension during Dialysis Stop: 09/21/19 15:20 Insulin Aspart (Novolog Vial Sliding Scale -) 1 vial SQ TIDAC [facility]; Protocol Last Admin: 09/22/19 06:12 Dose: Not Given Melatonin (Melatonin) 5 mg PO HS PRN PRN Reason: INSOMNIA Last Admin: 09/21/19 22:37 Dose: 5 mg Metoprolol Tartrate (Lopressor -) 50 mg PO BID [facility] Last Admin: 09/22/19 09:09 Dose: 50 mg Neomycin/Polymyxin/Hydrocortisone (Cortisporin Otic Solution -) 4 drop AD Q6HPO [facility] Last Admin: 09/22/19 06:12 Dose: 4 drop Pancrelipase (Creon Dr 36,000 Units Capsule) 1 cap PO TIDCM [facility] Last Admin: 09/22/19 08:22 Dose: 1 cap Rifaximin (Xifaxan -) 550 mg PO TID [facility] Last Admin: 09/22/19 06:12 Dose: 550 mg Simethicone (Mylicon -) 80 mg PO QID PRN PRN Reason: GAS Sitagliptin Phosphate (Januvia -) 25 mg PO DAILY@0700 [facility] Last Admin: 09/22/19 06:12 Dose: 25 mg Vital Signs Period Temp Pulse Resp BP Sys/Padron Pulse Ox Last 24 Hr 96.8 F-98.3 F 58-95 18-20 131-180/59-97 94-99 Constitutional: Yes: No Distress, Calm Cardiovascular: Yes: Regular Rate and Rhythm Respiratory: Yes: Other (decreased breaths sounds b/l; no active wheezing.) Gastrointestinal: Yes: Soft Edema: No Neurological: Yes: Alert, Oriented no jaundice, diaphoresis not agitated Assessment/Plan Echo 08/03: mod LVE, mod decr EF (global). nl RV. mild-mod MR, mod TR. RVSP 45. LHC 06/29: nl EDP; EF 40% (global); 50-60% OM1 (normal FFR); mild dz others MIBI 06/29 (pers): no STs; moder, partly rev defect AW c/w ischemia; mild LVE, mild-mod global LV hypo (40% EF); MILD TID MIBI 08/27 (pers): no ST change; TDS perfusion b/c of GI artifact and gating artifact; mild LV dilation and mild decr EFvisually (no TID) CXR: cardiomegaly, no congestion echo 05/2018 LV mildly dilated, borderline reduced LV function, grade II diastolic dysfunction, elevated filling pressures, LA mildly dilated, mild MAC, mild MR, mod TR, PASP at least 59 mmHg, no effusion EKG: sinus, nl intervals, no ischemic changes echo 08/2019 mild global hypokinesis EF 45%, RV nl, RA mod dilated, tr-mild MR, mod TR, RVSP at least 55 mmHg, severe pulm HTN ASSESSMENT/PLAN 63 yo smoker with h/o systolic cardiomyopathy, non-obstructive cad, HTN, HL, pHTN, PAD, mod PARVEZ on cpap, CKD (cr 1.8 - 2.2), DM, h/o GIB s/p cauterization of avm's, breast cancer p/w abnormal labs LYSSA, hyperkalemia: - now s/p permacath, on HD - lasix per renal elevated trop: - likely demand in setting of LYSSA, no signs ACS - echo mildly reduced LV function chronic systolic CHF: -borderline reduced LV function 2017, on lasix at home - BNP >[id number] in setting of LYSSA - started on HD, lasix per renal. - not on EVELINA/ARB due to recurrent severe hyperkalemia - cont bb - appears euvolemic anemia: - heme consulted, stool guaiac negative. Chronic ischemic heart disease: - nonobstructive OM dz inc FFR negative, no history of angina -continue statin - no asa - hx anemia Essential hypertension: at goal -cont hydralazine, beta [place] Chronic obstructive pulmonary disease -STABLE ON BB LONG TIME -no current sx's Obstructive sleep apnea -USES CPAP AT HOME and intermittently here. breast ca -manage per heme/onc PAD: - known h/o obstructive RLE disease, claudication--deferred [employer] previously due to risks of contrast nephropathy
[2019-09-22] MEDS ORDERED: SODIUM CHLORIDE 250 ML IV PRN ×2 (12:04→22:28)
--- NOTE | 2019-09-22 12:04 | PN ---
Progress Note, Physician History of Present Illness: Pt seen and examined at bedside. She is awake and alert. She denies shortness of breath. - Current Medication List Current Medications: Active Medications Calcium Acetate (Phoslo -) 667 mg PO TIDCM [facility] Last Admin: 09/22/19 08:22 Dose: 667 mg Calcium Carbonate/Cholecalciferol (Os-Sergey 500+D -) 1 tab PO DAILY [facility] Last Admin: 09/22/19 09:09 Dose: 1 tab Famotidine (Pepcid -) 20 mg PO DAILY [facility] Last Admin: 09/22/19 09:09 Dose: 20 mg Furosemide (Lasix -) 80 mg PO Q48H [facility] Last Admin: 09/22/19 09:09 Dose: 80 mg Hydralazine HCl (Apresoline -) 50 mg PO BID [facility] Last Admin: 09/22/19 09:09 Dose: 50 mg Sodium Chloride (Normal Saline -) 250 mls @ 3,000 mls/hr IV PRN PRN PRN Reason: Hypotension during Dialysis Stop: 09/21/19 15:20 Insulin Aspart (Novolog Vial Sliding Scale -) 1 vial SQ TIDAC [facility]; Protocol Last Admin: 09/22/19 11:58 Dose: Not Given Melatonin (Melatonin) 5 mg PO HS PRN PRN Reason: INSOMNIA Last Admin: 09/21/19 22:37 Dose: 5 mg Metoprolol Tartrate (Lopressor -) 50 mg PO BID [facility] Last Admin: 09/22/19 09:09 Dose: 50 mg Neomycin/Polymyxin/Hydrocortisone (Cortisporin Otic Solution -) 4 drop AD Q6HPO [facility] Last Admin: 09/22/19 06:12 Dose: 4 drop Pancrelipase (Creon Dr 36,000 Units Capsule) 1 cap PO TIDCM [facility] Last Admin: 09/22/19 08:22 Dose: 1 cap Rifaximin (Xifaxan -) 550 mg PO TID [facility] Last Admin: 09/22/19 06:12 Dose: 550 mg Simethicone (Mylicon -) 80 mg PO QID PRN PRN Reason: GAS Sitagliptin Phosphate (Januvia -) 25 mg PO DAILY@0700 [facility] Last Admin: 09/22/19 06:12 Dose: 25 mg - Objective Vital Signs: Vital Signs Temperature 96.8 F L 09/22/19 09:07 Pulse Rate 65 09/22/19 09:07 Respiratory Rate 18 09/22/19 09:07 Blood Pressure 180/71 H 09/22/19 09:07 O2 Sat by Pulse Oximetry (%) 99 09/22/19 07:48 Constitutional: Yes: Calm Eyes: Yes: Conjunctiva Clear HENT: Yes: Atraumatic Cardiovascular: Yes: S1, S2 Respiratory: Yes: CTA Bilaterally Gastrointestinal: Yes: Soft Genitourinary: Yes: WNL Musculoskeletal: Yes: WNL Edema: Yes Edema: LLE: Trace, RLE: Trace Neurological: Yes: Oriented Psychiatric: Yes: Oriented Labs: CBC, BMP 09/20/19 07:35 09/20/19 07:35 INR, PTT INR 1.23 (0.83-1.09) H 09/14/19 05:27 Problem List - Problems (1) Anemia Code(s): D64.9 - ANEMIA, UNSPECIFIED (2) Abnormal EKG Code(s): R94.31 - ABNORMAL ELECTROCARDIOGRAM [ECG] [EKG] (3) Acute CHF (congestive heart failure) Code(s): I50.9 - HEART FAILURE, UNSPECIFIED (4) CAD (coronary artery disease) Code(s): I25.10 - ATHSCL HEART DISEASE OF [place] CORONARY ARTERY W/O ANG PCTRS Qualifiers: Coronary Disease-Associated Artery/Lesion type: [place] coronary artery Associated angina: with other forms of angina pectoris (5) CKD (chronic kidney disease) Code(s): N18.9 - CHRONIC KIDNEY DISEASE, UNSPECIFIED Qualifiers: Chronic kidney disease stage: unspecified stage Qualified Code(s): N18.9 - Chronic kidney disease, unspecified Assessment/Plan Current Medications Generic Name Dose Route Start Last Admin Trade Name Freq PRN Reason Stop Dose Admin Calcium Acetate 667 mg 09/20/19 17:30 09/22/19 08:22 Phoslo - PO 667 mg TIDCM [facility] Administration Calcium Carbonate/Cholecalciferol 1 tab 09/21/19 10:00 09/22/19 09:09 Os-Sergey 500+D - PO 1 tab DAILY [facility] Administration Famotidine 20 mg 09/21/19 10:00 09/22/19 09:09 Pepcid - PO 20 mg DAILY [facility] Administration Furosemide 80 mg 09/22/19 10:00 09/22/19 09:09 Lasix - PO 80 mg Q48H [facility] Administration Hydralazine HCl 50 mg 09/20/19 22:00 09/22/19 09:09 Apresoline - PO 50 mg BID [facility] Administration Sodium Chloride 250 mls @ 3,000 mls/hr 09/20/19 15:20 Normal Saline - IV 09/21/19 15:20 PRN PRN Hypotension during Dialysis Insulin Aspart 1 vial 09/20/19 16:30 09/22/19 11:58 Novolog Vial Sliding Scale - SQ Not Given TIDAC [facility] Protocol Melatonin 5 mg 09/20/19 13:49 09/21/19 22:37 Melatonin PO 5 mg HS PRN Administration INSOMNIA Metoprolol Tartrate 50 mg 09/20/19 22:00 09/22/19 09:09 Lopressor - PO 50 mg BID [facility] Administration Neomycin/Polymyxin/Hydrocortisone 4 drop 09/20/19 18:00 09/22/19 06:12 Cortisporin Otic Solution - AD 4 drop Q6HPO [facility] Administration Pancrelipase 1 cap 09/20/19 17:30 09/22/19 08:22 Crebianca Wang 36,000 Units Capsule PO 1 cap TIDCM [facility] Administration Rifaximin 550 mg 09/20/19 14:00 09/22/19 06:12 Xifaxan - PO 550 mg TID [facility] Administration Simethicone 80 mg 09/20/19 13:49 Mylicon - PO QID PRN GAS Sitagliptin Phosphate 25 mg 09/21/19 07:00 09/22/19 06:12 Januvia - PO 25 mg DAILY@0700 [facility] Administration Laboratory Tests 09/15/19 09/17/19 05:35 12:21 Hep Bs Antigen Negative Hep B Core Ab Interpret Negative Impression 1. CKD 2. anemia 3. CHF 4. HTN 5. DM 6. hyperlipidemia 7. anxiety 8. uterine cancer 9. hx GI bleed 10. COPD 11. breast cancer 12. hyperkalemia 13. ESRD Plan - HD tomorrow - check cbc - will transfue on Hd - pt does not want epogen - potassium improved - renal diet
[2019-09-22] MEDS ORDERED: LOPERAMIDE HCL 2 MG CAPSULE PO ONE ×2 (13:15→16:00)
--- NOTE | 2019-09-22 13:55 | PN ---
Progress Note, Physician History of Present Illness: pulmonary alert,no distress,tolerated HD well - Current Medication List Current Medications: Active Medications Calcium Acetate (Phoslo -) 667 mg PO TIDCM [facility] Last Admin: 09/22/19 13:20 Dose: 667 mg Calcium Carbonate/Cholecalciferol (Os-Sergey 500+D -) 1 tab PO DAILY [facility] Last Admin: 09/22/19 09:09 Dose: 1 tab Famotidine (Pepcid -) 20 mg PO DAILY [facility] Last Admin: 09/22/19 09:09 Dose: 20 mg Furosemide (Lasix -) 80 mg PO Q48H [facility] Last Admin: 09/22/19 09:09 Dose: 80 mg Hydralazine HCl (Apresoline -) 50 mg PO BID [facility] Last Admin: 09/22/19 09:09 Dose: 50 mg Sodium Chloride (Normal Saline -) 250 mls @ 3,000 mls/hr IV PRN PRN PRN Reason: Hypotension during Dialysis Stop: 09/23/19 12:04 Insulin Aspart (Novolog Vial Sliding Scale -) 1 vial SQ TIDAC [facility]; Protocol Last Admin: 09/22/19 11:58 Dose: Not Given Melatonin (Melatonin) 5 mg PO HS PRN PRN Reason: INSOMNIA Last Admin: 09/21/19 22:37 Dose: 5 mg Metoprolol Tartrate (Lopressor -) 50 mg PO BID [facility] Last Admin: 09/22/19 09:09 Dose: 50 mg Neomycin/Polymyxin/Hydrocortisone (Cortisporin Otic Solution -) 4 drop AD Q6HPO [facility] Last Admin: 09/22/19 13:22 Dose: 4 drop Pancrelipase (Creon Dr 36,000 Units Capsule) 1 cap PO TIDCM [facility] Last Admin: 09/22/19 13:20 Dose: 1 cap Rifaximin (Xifaxan -) 550 mg PO TID [facility] Last Admin: 09/22/19 06:12 Dose: 550 mg Simethicone (Mylicon -) 80 mg PO QID PRN PRN Reason: GAS Sitagliptin Phosphate (Januvia -) 25 mg PO DAILY@0700 [facility] Last Admin: 09/22/19 06:12 Dose: 25 mg - Objective Vital Signs: Vital Signs Temperature 96.8 F L 09/22/19 09:07 Pulse Rate 65 09/22/19 09:07 Respiratory Rate 18 09/22/19 09:07 Blood Pressure 180/71 H 09/22/19 09:07 O2 Sat by Pulse Oximetry (%) 99 09/22/19 07:48 Constitutional: Yes: Well Nourished, Calm Eyes: Yes: WNL HENT: Yes: WNL Neck: Yes: WNL Cardiovascular: Yes: Regular Rate and Rhythm, S1, S2 Respiratory: Yes: CTA Bilaterally Gastrointestinal: Yes: Normal Bowel Sounds, Soft Extremities: Yes: WNL Edema: No Labs: CBC, BMP Problem List - Problems (1) Acute on chronic systolic (congestive) heart failure Code(s): I50.23 - ACUTE ON CHRONIC SYSTOLIC (CONGESTIVE) HEART FAILURE (2) Acute on chronic systolic (congestive) heart failure Code(s): I50.23 - ACUTE ON CHRONIC SYSTOLIC (CONGESTIVE) HEART FAILURE (3) Anemia Code(s): D64.9 - ANEMIA, UNSPECIFIED (4) Acute hyperkalemia Code(s): E87.5 - HYPERKALEMIA (5) Benign hypertension Code(s): I10 - ESSENTIAL (PRIMARY) HYPERTENSION (6) CAD (coronary artery disease) Code(s): I25.10 - ATHSCL HEART DISEASE OF [place] CORONARY ARTERY W/O ANG PCTRS Qualifiers: Coronary Disease-Associated Artery/Lesion type: [place] coronary artery Associated angina: with other forms of angina pectoris (7) CKD (chronic kidney disease) Code(s): N18.9 - CHRONIC KIDNEY DISEASE, UNSPECIFIED Qualifiers: Chronic kidney disease stage: unspecified stage Qualified Code(s): N18.9 - Chronic kidney disease, unspecified (8) Controlled type 2 diabetes mellitus with diabetic peripheral angiopathy without gangrene Code(s): E11.51 - TYPE 2 DIABETES W DIABETIC PERIPHERAL ANGIOPATH W/O GANGRENE (9) Edema Code(s): R60.9 - EDEMA, UNSPECIFIED Qualifiers: Edema type: generalized Qualified Code(s): R60.1 - Generalized edema (10) HTN (hypertension) Code(s): I10 - ESSENTIAL (PRIMARY) HYPERTENSION (11) Hyperkalemia Code(s): E87.5 - HYPERKALEMIA (12) Nausea Code(s): R11.0 - NAUSEA (13) PARVEZ on CPAP Code(s): G47.33 - OBSTRUCTIVE SLEEP APNEA (ADULT) (PEDIATRIC) (14) PVD (peripheral vascular disease) Code(s): I73.9 - PERIPHERAL VASCULAR DISEASE, UNSPECIFIED (15) Pulmonary hypertension Code(s): I27.2 - OTHER SECONDARY PULMONARY HYPERTENSION * DO NOT USE * (16) SOB (shortness of breath) Code(s): R06.02 - SHORTNESS OF BREATH (17) Sleep apnea, obstructive Code(s): G47.33 - OBSTRUCTIVE SLEEP APNEA (ADULT) (PEDIATRIC) (18) Smoker Code(s): F17.200 - NICOTINE DEPENDENCE, UNSPECIFIED, UNCOMPLICATED (19) Smoker unmotivated to quit Code(s): F17.210 - NICOTINE DEPENDENCE, CIGARETTES, UNCOMPLICATED (20) Weakness Code(s): R53.1 - WEAKNESS Assessment/Plan IMP DYSPNEA IMPROVED ACUTE ON CHRONIC SYSTOLIC CHF IMPROVING PULMONARY HTN ASHD ACUTE ON CHRONIC KIDNEY FAILURE HYPERKALEMIA PARVEZ PT NON-COMPLIANT WITH CPAP COPD SMOKER ANEMIA HTN HLD DM H/O GIB NAUSEA H/O BREAST CA PLAN LASIX PER RENAL O2 HD PER RENAL INHALED BRONCHODILATORS MONITOR LYTES ,RENAL FUNCTION MONITOR H+H SMOKING CESSATION COUNSELED DAILY WTS DR HARO Problem List - Problems (1) Acute on chronic systolic (congestive) heart failure Code(s): I50.23 - ACUTE ON CHRONIC SYSTOLIC (CONGESTIVE) HEART FAILURE (2) Acute on chronic systolic (congestive) heart failure Code(s): I50.23 - ACUTE ON CHRONIC SYSTOLIC (CONGESTIVE) HEART FAILURE (3) Anemia Code(s): D64.9 - ANEMIA, UNSPECIFIED (4) Acute hyperkalemia Code(s): E87.5 - HYPERKALEMIA (5) Benign hypertension Code(s): I10 - ESSENTIAL (PRIMARY) HYPERTENSION (6) CAD (coronary artery disease) Code(s): I25.10 - ATHSCL HEART DISEASE OF [place] CORONARY ARTERY W/O ANG PCTRS Qualifiers: Coronary Disease-Associated Artery/Lesion type: [place] coronary artery Associated angina: with other forms of angina pectoris (7) CKD (chronic kidney disease) Code(s): N18.9 - CHRONIC KIDNEY DISEASE, UNSPECIFIED Qualifiers: Chronic kidney disease stage: unspecified stage Qualified Code(s): N18.9 - Chronic kidney disease, unspecified (8) Controlled type 2 diabetes mellitus with diabetic peripheral angiopathy without gangrene Code(s): E11.51 - TYPE 2 DIABETES W DIABETIC PERIPHERAL ANGIOPATH W/O GANGRENE (9) Edema Code(s): R60.9 - EDEMA, UNSPECIFIED Qualifiers: Edema type: generalized Qualified Code(s): R60.1 - Generalized edema (10) HTN (hypertension) Code(s): I10 - ESSENTIAL (PRIMARY) HYPERTENSION (11) Hyperkalemia Code(s): E87.5 - HYPERKALEMIA (12) Nausea Code(s): R11.0 - NAUSEA (13) PARVEZ on CPAP Code(s): G47.33 - OBSTRUCTIVE SLEEP APNEA (ADULT) (PEDIATRIC) (14) PVD (peripheral vascular disease) Code(s): I73.9 - PERIPHERAL VASCULAR DISEASE, UNSPECIFIED (15) Pulmonary hypertension Code(s): I27.2 - OTHER SECONDARY PULMONARY HYPERTENSION * DO NOT USE * (16) SOB (shortness of breath) Code(s): R06.02 - SHORTNESS OF BREATH (17) Sleep apnea, obstructive Code(s): G47.33 - OBSTRUCTIVE SLEEP APNEA (ADULT) (PEDIATRIC) (18) Smoker Code(s): F17.200 - NICOTINE DEPENDENCE, UNSPECIFIED, UNCOMPLICATED (19) Smoker unmotivated to quit Code(s): F17.210 - NICOTINE DEPENDENCE, CIGARETTES, UNCOMPLICATED (20) Weakness Code(s): R53.1 - WEAKNESS
[2019-09-22] MEDS ORDERED: PT OWN MED DRAWER 7, Y5N ONE ×2 (17:15→20:56)
--- NOTE | 2019-09-22 17:26 | PATH ---
Surgical Pathology Report Patient Name: JOSE ROGERS [facility]. Rec. #: [id number] /Age/Gender: 1955 (Age: 63) / F Account: [id number] Location: 4 SO PEDS/ADOL Taken: 09/20/2019 Received: 09/21/2019 Reported: 09/22/2019 Physicians: Armando Churchill Specimen(s) Received REMOVED PERMACATH Clinical History Exchange of permacath Final Diagnosis PERMACATH, REMOVAL: CATHETER (PERMACATH). MACROSCOPIC DIAGNOSIS. Electronically Signed Apoorva Smith M.D. Gross Description Received fresh labeled "removed permacath," is a 29 cm in length triple lumen catheter. No soft tissue is present. No sections are submitted, gross only. /09/21/201909/21/2019
--- NOTE | 2019-09-22 18:56 | PN ---
Progress Note (short form) - Note Progress Note: Patient seen and examined Underwent dialysis No specific complaints Last Vital Signs Temp Pulse Resp BP Pulse Ox 97.5 F L 67 18 150/70 98 09/22/19 15:00 09/22/19 15:00 09/22/19 15:00 09/22/19 15:00 09/22/19 09:00 HEENT: CHRIS, EOM Intact Oropharynx: No thrush, No mucositis Neck: ecchymosis Nodes: Without adenopathy Breasts: hyperpigmented , indurated right breast - s/p surgery, infection-- no evidence of recurrence, and RT Cor: RSR, No murmurs, No gallops Lungs: Clear to P&A Abd: Soft, Normal bowel sounds, No organomegaly,[place] Ext:No significant edema Skin: Integument intact CBC, BMP 09/20/19 07:35 09/20/19 07:35 Current Medications Generic Name Dose Route Start Last Admin Trade Name Freq PRN Reason Stop Dose Admin Calcium Acetate 667 mg 09/20/19 17:30 09/22/19 17:13 Phoslo - PO 667 mg TIDCM [facility] Administration Calcium Carbonate/Cholecalciferol 1 tab 09/21/19 10:00 09/22/19 09:09 Os-Sergey 500+D - PO 1 tab DAILY [facility] Administration Famotidine 20 mg 09/21/19 10:00 09/22/19 09:09 Pepcid - PO 20 mg DAILY [facility] Administration Furosemide 80 mg 09/22/19 10:00 09/22/19 09:09 Lasix - PO 80 mg Q48H [facility] Administration Hydralazine HCl 50 mg 09/20/19 22:00 09/22/19 09:09 Apresoline - PO 50 mg BID [facility] Administration Sodium Chloride 250 mls @ 3,000 mls/hr 09/22/19 12:04 Normal Saline - IV 09/23/19 12:04 PRN PRN Hypotension during Dialysis Insulin Aspart 1 vial 09/20/19 16:30 09/22/19 17:12 Novolog Vial Sliding Scale - SQ Not Given TIDAC [facility] Protocol Melatonin 5 mg 09/20/19 13:49 09/21/19 22:37 Melatonin PO 5 mg HS PRN Administration INSOMNIA Metoprolol Tartrate 50 mg 09/20/19 22:00 09/22/19 09:09 Lopressor - PO 50 mg BID [facility] Administration Neomycin/Polymyxin/Hydrocortisone 4 drop 09/20/19 18:00 09/22/19 17:17 Cortisporin Otic Solution - AD 4 drop Q6HPO [facility] Administration Pancrelipase 1 cap 09/20/19 17:30 09/22/19 17:[address] 36,000 Units Capsule PO 1 cap TIDCM [facility] Administration Rifaximin 550 mg 09/20/19 14:00 09/22/19 14:40 Xifaxan - PO 550 mg TID [facility] Administration Simethicone 80 mg 09/20/19 13:49 Mylicon - PO QID PRN GAS Sitagliptin Phosphate 25 mg 09/21/19 07:00 09/22/19 06:12 Januvia - PO 25 mg DAILY@0700 [facility] Administration Impression: Multiple co-morbid medical problems CKD HD Breast ca- triple negative - s/p chemotherpay/RT/ with abscess and infection - post surgery Anemia- with Fe++ studies compatible with chronic disease.
[2019-09-22] MEDS ORDERED: MAG HYDROX/AL HYDROX/SIMETH -MYLANTA- ORAL SUSPENSION PO PRN (19:20)
[2019-09-22] MEDS ORDERED: PANTOPRAZOLE 40 MG TABLET (FP) PO ONE (19:22)
[2019-09-22] MEDS ORDERED: SIMETHICONE 80 MG TAB.CHEW (FP) PO PRN (22:28)
[2019-09-22] MEDS: MELATONIN 5 MG TABLETS PO PRN (23:24)
[2019-09-23] MEDS: NEOMYCIN/POLYMYXN/HC OTIC SOLUTION 10 ML BOTTLE AD SCH ×4 (06:48→22:59)
[2019-09-23] MEDS: INSULIN SLIDING SCALE (NOVOLOG) 1 VIAL SQ SCH ×3 (06:52→17:26)
[2019-09-23] MEDS: RIFAXIMIN 550 MG TABLET (UD) PO SCH ×3 (06:52→21:40)
[2019-09-23] MEDS ORDERED: PT OWN MED DRAWER 7, Y5N ONE ×3 (08:08→17:24)
[2019-09-23] MEDS: CALCIUM ACETATE 667 MG CAPSULE (FP) PO SCH ×3 (08:28→17:27)
[2019-09-23] MEDS: LIPASE/PROTEASE/AMYLASE 36,000 UNIT CAPSULE PO SCH ×3 (08:31→17:27)
[2019-09-23 10:03] LABS: HEMATOCRIT 26.4 % (32.4-45.2); HEMOGLOBIN 8.6 GM/dL (10.7-15.3); MCHC 32.6 g/dl (32.0-36.0); MEAN CELL VOLUME 95.4 fl (80-96); MEAN PLT VOLUME 8.9 fl (7.5-11.1); PLATELET COUNT 128 K/MM3 (134-434); RBC 2.76 M/mm3 (3.60-5.2); RDW 16.7 % (11.6-15.6); WHITE BLOOD COUNT 7.9 K/mm3 (4.0-10.0)
--- NOTE | 2019-09-23 10:11 | PN ---
Progress Note (short form) - Note Progress Note: PULMONARY Currently on HD. Denies shortness of breath, cough. Vital Signs Period Temp Pulse Resp BP Sys/Padron Pulse Ox Last 24 Hr 97.5 F-97.8 F 62-74 18-20 133-174/57-94 94-96 Gen: NAD at rest Heart: RRR Lung: decreased breath sound at the bases Abd: softly distended, nontender Ext: no edema CBC, BMP 09/23/19 09:25 Active Medications Al Hydroxide/Mg Hydroxide (Mylanta Suspension -) 30 ml PO Q6HPO PRN PRN Reason: DYSPEPSIA Calcium Acetate (Phoslo -) 667 mg PO TIDCM [facility] Last Admin: 09/23/19 08:28 Dose: 667 mg Calcium Carbonate/Cholecalciferol (Os-Sergey 500+D -) 1 tab PO DAILY [facility] Famotidine (Pepcid -) 20 mg PO DAILY [facility] Furosemide (Lasix -) 80 mg PO Q48H [facility] Hydralazine HCl (Apresoline -) 50 mg PO BID [facility] Sodium Chloride (Normal Saline -) 250 mls @ 3,000 mls/hr IV PRN PRN PRN Reason: Hypotension during Dialysis Stop: 09/23/19 12:04 Insulin Aspart (Novolog Vial Sliding Scale -) 1 vial SQ TIDAC [facility]; Protocol Last Admin: 09/23/19 06:52 Dose: Not Given Melatonin (Melatonin) 5 mg PO HS PRN PRN Reason: INSOMNIA Last Admin: 09/22/19 23:24 Dose: 5 mg Metoprolol Tartrate (Lopressor -) 50 mg PO BID [facility] Neomycin/Polymyxin/Hydrocortisone (Cortisporin Otic Solution -) 4 drop AD Q6HPO [facility] Last Admin: 09/23/19 06:48 Dose: 4 drop Pancrelipase (Creon Dr 36,000 Units Capsule) 1 cap PO TIDCM [facility] Last Admin: 09/23/19 08:31 Dose: 1 cap Rifaximin (Xifaxan -) 550 mg PO TID [facility] Last Admin: 09/23/19 06:52 Dose: 550 mg Simethicone (Mylicon -) 80 mg PO QID PRN PRN Reason: GAS Sitagliptin Phosphate (Januvia -) 25 mg PO DAILY@0700 [facility] Last Admin: 09/23/19 06:52 Dose: 25 mg A/P Acute on Chronic Systolic Heart Failure Acute on Chronic Renal Failure now on HD Pulmonary HTN COPD CAD HTN DM Hyperlipidemia Anemia Breast Ca Smoker - HD per renal - daily weights - O2 to keep SpO2 >90% - inhaled bronchodilators - smoking cessation - DVT prophylaxis
[2019-09-23 10:33] LABS: BLOOD UREA NITROGEN 53.2 mg/dL (7-18); CALCIUM 7.6 mg/dL (8.5-10.1); CREATININE 3.7 mg/dL (0.55-1.3); POTASSIUM 3.9 mmol/L (3.5-5.1)
--- NOTE | 2019-09-23 10:42 | OP ---
DATE OF OPERATION: 09/20/2019 PREOPERATIVE DIAGNOSIS: End-stage renal disease. POSTOPERATIVE DIAGNOSIS: End-stage renal disease. PROCEDURE: Insertion of Perma-Cath. SURGEON: Armando Yang DO ANESTHESIA: Fractional. BLOOD LOSS: 20 mL. INDICATIONS: Patient is a 63-year-old female who came in with acute renal failure. She then had a right IJ Trialysis catheter placed. She has been getting dialysis through there and now needs to have that exchanged to a Perma-Cath. The patient was consented for the procedure understanding all risks, benefits, alternatives then taken to the operating room. DESCRIPTION OF PROCEDURE: Once in the operating room, was laid on the operating room table in supine manner, and the area of the right neck and chest were prepped and draped in a sterile surgical manner. We then went ahead and injured 10 mL of lidocaine 1% above and below the clavicle. We then went ahead and placed our 0.035 floppy guidewire throughout our Trialysis catheter, and the catheter was removed under fluoroscopy. We then used a 15 blade and made a 1-cm incision below the clavicle. We then went ahead and using an 11 blade made a 1-cm incision at the catheter puncture site. We then went ahead and tunneled our Perma-Cath up to the puncture site. We then used our breakaway sheath and placed it over the guidewire into the vein under fluoroscopy. The inner cannula and guidewire were removed. Catheter was placed inside the sheath. Sheath was broken away as the catheter was placed inside the vein. Neck of the catheter was nice and smooth. Tip of the catheter was located outside the right atrium. We then steven back on each port of the catheter, and there was good flow. Heparinized saline was injected, 2000 units of IV heparin was injected into each port, 4-0 Biosyn was used, and 2 simple sutures were placed at the puncture site, 3-0 nylon was used, and the catheter was attached to the skin. Biopatch, Steri-Strips, 4 x 4's, Tegaderms were placed. Patient tolerated the procedure with no complications. Patient transferred to the PACU in stable condition where a chest x-ray will be ordered. ARMANDO YANG DO [employer] CAPTAIN/[id number]
--- NOTE | 2019-09-23 11:11 | PN ---
Progress Note (short form) - Note Progress Note: s: no chest pain, palps, dizziness, dyspnea Current Medications Generic Name Dose Route Start Last Admin Trade Name Freq PRN Reason Stop Dose Admin Al Hydroxide/Mg Hydroxide 30 ml 09/22/19 19:20 Mylanta Suspension - PO Q6HPO PRN DYSPEPSIA Calcium Acetate 667 mg 09/23/19 08:00 09/23/19 08:28 Phoslo - PO 667 mg TIDCM [facility] Administration Calcium Carbonate/Cholecalciferol 1 tab 09/23/19 10:00 Os-Sergey 500+D - PO DAILY [facility] Famotidine 20 mg 09/23/19 10:00 Pepcid - PO DAILY [facility] Furosemide 80 mg 09/24/19 10:00 Lasix - PO Q48H [facility] Hydralazine HCl 50 mg 09/23/19 10:00 Apresoline - PO BID [facility] Sodium Chloride 250 mls @ 3,000 mls/hr 09/22/19 22:28 Normal Saline - IV 09/23/19 12:04 PRN PRN Hypotension during Dialysis Insulin Aspart 1 vial 09/23/19 07:00 09/23/19 06:52 Novolog Vial Sliding Scale - SQ Not Given TIDAC [facility] Protocol Melatonin 5 mg 09/22/19 22:28 09/22/19 23:24 Melatonin PO 5 mg HS PRN Administration INSOMNIA Metoprolol Tartrate 50 mg 09/23/19 10:00 Lopressor - PO BID [facility] Neomycin/Polymyxin/Hydrocortisone 4 drop 09/23/19 00:00 09/23/19 06:48 Cortisporin Otic Solution - AD 4 drop Q6HPO [facility] Administration Pancrelipase 1 cap 09/23/19 08:00 09/23/19 08:31 Diana Wang 36,000 Units Capsule PO 1 cap TIDCM [facility] Administration Rifaximin 550 mg 09/23/19 06:00 09/23/19 06:52 Xifaxan - PO 550 mg TID [facility] Administration Simethicone 80 mg 09/22/19 22:28 Mylicon - PO QID PRN GAS Sitagliptin Phosphate 25 mg 09/23/19 07:00 09/23/19 06:52 Januvia - PO 25 mg DAILY@0700 [facility] Administration Vital Signs Period Temp Pulse Resp BP Sys/Padron Pulse Ox Last 24 Hr 97.5 F-97.8 F 62-77 18-20 121-174/57-94 94-96 Constitutional: Yes: Well Nourished, No Distress Eyes: No: Sclera Icterus Respiratory: Yes: CTA Bilaterally. No: Accessory Muscle Use, Rales, Wheezes Gastrointestinal: Yes: Normal Bowel Sounds. No: Distention, Hepatomegaly, Palpable Mass, Tenderness Cardiovascular: Yes: Regular Rate and Rhythm JVD: No Carotid Bruit: No PMI: Non-Displaced Heart Sounds: Yes: S1, S2. No: Gallop Murmur: No: Systolic Murmur, Diastolic Murmur Extremities: No: Cold, Cyanosis Edema: No Integumentary: No: Jaundice Neurological: Yes: Alert, Oriented (x3) Psychiatric: No: Agitated CBC, BMP 09/23/19 09:25 09/23/19 09:25 Assessment/Plan Echo 08/03: mod LVE, mod decr EF (global). nl RV. mild-mod MR, mod TR. RVSP 45. LHC 06/29: nl EDP; EF 40% (global); 50-60% OM1 (normal FFR); mild dz others MIBI 06/29 (pers): no STs; moder, partly rev defect AW c/w ischemia; mild LVE, mild-mod global LV hypo (40% EF); MILD TID MIBI 08/27 (pers): no ST change; TDS perfusion b/c of GI artifact and gating artifact; mild LV dilation and mild decr EFvisually (no TID) CXR: cardiomegaly, no congestion echo 05/2018 LV mildly dilated, borderline reduced LV function, grade II diastolic dysfunction, elevated filling pressures, LA mildly dilated, mild MAC, mild MR, mod TR, PASP at least 59 mmHg, no effusion EKG: sinus, nl intervals, no ischemic changes echo 08/2019 mild global hypokinesis EF 45%, RV nl, RA mod dilated, tr-mild MR, mod TR, RVSP at least 55 mmHg, severe pulm HTN ASSESSMENT/PLAN 63 yo smoker with h/o systolic cardiomyopathy, non-obstructive cad, HTN, HL, pHTN, PAD, mod PARVEZ on cpap, CKD (cr 1.8 - 2.2), DM, h/o GIB s/p cauterization of avm's, breast cancer p/w abnormal labs LYSSA, hyperkalemia: - now s/p permacath, on HD - lasix per renal elevated trop: - likely demand in setting of LYSSA, no signs ACS - echo mildly reduced LV function chronic systolic CHF: -borderline reduced LV function 2018, on lasix at home - BNP >03702 in setting of LYSSA - started on HD, lasix per renal. - not on EVELINA/ARB due to recurrent severe hyperkalemia - cont bb - appears euvolemic anemia: - heme consulted, stool guaiac negative. Chronic ischemic heart disease: - nonobstructive OM dz inc FFR negative, no history of angina -continue statin - no asa - hx anemia Essential hypertension: at goal -cont hydralazine, beta [place] Chronic obstructive pulmonary disease -STABLE ON BB LONG TIME -no current sx's Obstructive sleep apnea -USES CPAP AT HOME and intermittently here. 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
--- NOTE | 2019-09-23 12:03 | PN ---
Progress Note, Physician Chief Complaint: Acute Renal Failure Anemia CHF History of Present Illness: Previous notes and events reviewed awake and alert NAD patient examined while in HD receiving 1U PRBC transfusing while in HD denies chest pain or SOB pending dialysis center for discharge s/p permacath placmement R chest for dialysis - Current Medication List Current Medications: Active Medications Al Hydroxide/Mg Hydroxide (Mylanta Suspension -) 30 ml PO Q6HPO PRN PRN Reason: DYSPEPSIA Calcium Acetate (Phoslo -) 667 mg PO TIDCM [facility] Last Admin: 09/23/19 08:28 Dose: 667 mg Calcium Carbonate/Cholecalciferol (Os-Sergey 500+D -) 1 tab PO DAILY [facility] Famotidine (Pepcid -) 20 mg PO DAILY [facility] Furosemide (Lasix -) 80 mg PO Q48H [facility] Hydralazine HCl (Apresoline -) 50 mg PO BID [facility] Sodium Chloride (Normal Saline -) 250 mls @ 3,000 mls/hr IV PRN PRN PRN Reason: Hypotension during Dialysis Stop: 09/23/19 12:04 Insulin Aspart (Novolog Vial Sliding Scale -) 1 vial SQ TIDAC [facility]; Protocol Last Admin: 09/23/19 06:52 Dose: Not Given Melatonin (Melatonin) 5 mg PO HS PRN PRN Reason: INSOMNIA Last Admin: 09/22/19 23:24 Dose: 5 mg Metoprolol Tartrate (Lopressor -) 50 mg PO BID [facility] Neomycin/Polymyxin/Hydrocortisone (Cortisporin Otic Solution -) 4 drop AD Q6HPO [facility] Last Admin: 09/23/19 06:48 Dose: 4 drop Pancrelipase (Creon Dr 36,000 Units Capsule) 1 cap PO TIDCM [facility] Last Admin: 09/23/19 08:31 Dose: 1 cap Rifaximin (Xifaxan -) 550 mg PO TID [facility] Last Admin: 09/23/19 06:52 Dose: 550 mg Simethicone (Mylicon -) 80 mg PO QID PRN PRN Reason: GAS Sitagliptin Phosphate (Januvia -) 25 mg PO DAILY@0700 [facility] Last Admin: 09/23/19 06:52 Dose: 25 mg - Objective Vital Signs: Vital Signs Temperature 97.7 F 09/23/19 09:15 Pulse Rate 72 09/23/19 11:50 Respiratory Rate 18 09/23/19 11:50 Blood Pressure 160/81 09/23/19 11:50 O2 Sat by Pulse Oximetry (%) 96 09/23/19 08:06 Constitutional: Yes: No Distress, Calm Eyes: Yes: Conjunctiva Clear HENT: Yes: Atraumatic Cardiovascular: Yes: Regular Rate and Rhythm Respiratory: Yes: Regular, Diminished Gastrointestinal: Yes: Normal Bowel Sounds, Soft Musculoskeletal: Yes: Muscle Weakness Extremities: Yes: WNL Edema: No Neurological: Yes: Alert, Oriented Psychiatric: Yes: Alert, Oriented Labs: CBC, BMP 09/23/19 09:25 09/23/19 09:25 INR, PTT INR 1.23 (0.83-1.09) H 09/14/19 05:27 Problem List - Problems (1) Acute on chronic systolic (congestive) heart failure Assessment/Plan: -Cardiology on board -tele monitoring -BNP >51124 -daily weights -strict I&Os -fluid restriction -Furosemide -Echocardiogram EF 45%, RA moderately dilated, trace to mild mitral regurg, moderate tricuspid regurg, RV systolic pressure elevated, severe pulmonary HTNmild pulmonic valve regurg Code(s): I50.23 - ACUTE ON CHRONIC SYSTOLIC (CONGESTIVE) HEART FAILURE (2) Anemia Assessment/Plan: -Hg 8.6 -monitor Hg daily -transfuse for Hg <7.0 to avoid fluid overload -refusing epogen -receiving 1U PRBC in dialysis Code(s): D64.9 - ANEMIA, UNSPECIFIED (3) Transaminitis Assessment/Plan: -GI on board -Alk Phos 152 -Liver US shows hepatomegaly with slight coarse echotexture -Hepatitis serologies noted Code(s): R74.0 - NONSPEC ELEV OF LEVELS OF TRANSAMNS & LACTIC ACID DEHYDRGNSE (4) Acute exacerbation of chronic obstructive pulmonary disease (COPD) Assessment/Plan: -Pulm on board -Bronchodilators -O2 via NC -keep SpO2 >90% -Bipap HS Code(s): J44.1 - CHRONIC OBSTRUCTIVE PULMONARY DISEASE W (ACUTE) EXACERBATION (5) Acute hyperkalemia Assessment/Plan: -Renal on board -K 3.9 -monitor electrolytes daily Code(s): E87.5 - HYPERKALEMIA (6) CKD (chronic kidney disease) Assessment/Plan: -Renal on board -BUN/Cr 53.2/3.7 -monitor renal function daily -HD on scheduled days Code(s): N18.9 - CHRONIC KIDNEY DISEASE, UNSPECIFIED Qualifiers: Chronic kidney disease stage: unspecified stage Qualified Code(s): N18.9 - Chronic kidney disease, unspecified (7) Diabetes mellitus Assessment/Plan: -BGM ACHS -ISS -Sitagliptan -HgA1c 7.1% Code(s): E11.9 - TYPE 2 DIABETES MELLITUS WITHOUT COMPLICATIONS (8) HTN (hypertension) Assessment/Plan: -Hydralazine, Metoprolol Code(s): I10 - ESSENTIAL (PRIMARY) HYPERTENSION (9) Weakness Assessment/Plan: -Physical Therapy -Fall Risk Code(s): R53.1 - WEAKNESS (10) Right ear pain Assessment/Plan: -Cortisporin -if worsen consider ENT consult Code(s): H92.01 - OTALGIA, RIGHT EAR Assessment/Plan see problem list SCDs
[2019-09-23] MEDS: CALCIUM 500MG/VIT-D 200 UNITS COMBO TABLET (FP) PO SCH (13:16)
[2019-09-23] MEDS: METOPROLOL TARTRATE 50 MG TABLET (FP) PO SCH ×2 (13:16→21:40)
[2019-09-23] MEDS: hydrALAZINE HCL 50 MG TABLET (FP) PO SCH ×2 (13:16→21:40)
[2019-09-23] MEDS: FAMOTIDINE 20 MG TABLET PO SCH (13:16)
--- NOTE | 2019-09-23 17:25 | PN ---
Progress Note, Physician History of Present Illness: Pt seen and examined at bedside. She tolerated HD today. She denies shortness of breath. - Current Medication List Current Medications: Active Medications Al Hydroxide/Mg Hydroxide (Mylanta Suspension -) 30 ml PO Q6HPO PRN PRN Reason: DYSPEPSIA Calcium Acetate (Phoslo -) 667 mg PO TIDCM [facility] Last Admin: 09/23/19 13:15 Dose: 667 mg Calcium Carbonate/Cholecalciferol (Os-Sergey 500+D -) 1 tab PO DAILY [facility] Last Admin: 09/23/19 13:16 Dose: 1 tab Famotidine (Pepcid -) 20 mg PO DAILY [facility] Last Admin: 09/23/19 13:16 Dose: 20 mg Furosemide (Lasix -) 80 mg PO Q48H [facility] Hydralazine HCl (Apresoline -) 50 mg PO BID [facility] Last Admin: 09/23/19 13:16 Dose: 50 mg Insulin Aspart (Novolog Vial Sliding Scale -) 1 vial SQ TIDAC [facility]; Protocol Last Admin: 09/23/19 12:42 Dose: Not Given Melatonin (Melatonin) 5 mg PO HS PRN PRN Reason: INSOMNIA Last Admin: 09/22/19 23:24 Dose: 5 mg Metoprolol Tartrate (Lopressor -) 50 mg PO BID [facility] Last Admin: 09/23/19 13:16 Dose: 50 mg Neomycin/Polymyxin/Hydrocortisone (Cortisporin Otic Solution -) 4 drop AD Q6HPO [facility] Last Admin: 09/23/19 13:20 Dose: Not Given Pancrelipase (Creon Dr 36,000 Units Capsule) 1 cap PO TIDCM [facility] Last Admin: 09/23/19 13:15 Dose: 1 cap Pramipexole Dihydrochloride (Mirapex -) 0.25 mg PO HS [facility] Rifaximin (Xifaxan -) 550 mg PO TID [facility] Last Admin: 09/23/19 13:16 Dose: 550 mg Simethicone (Mylicon -) 80 mg PO QID PRN PRN Reason: GAS Sitagliptin Phosphate (Januvia -) 25 mg PO DAILY@0700 [facility] Last Admin: 09/23/19 06:52 Dose: 25 mg - Objective Vital Signs: Vital Signs Temperature 98.6 F 09/23/19 14:01 Pulse Rate 71 09/23/19 14:01 Respiratory Rate 18 09/23/19 14:01 Blood Pressure 135/60 09/23/19 14:01 O2 Sat by Pulse Oximetry (%) 98 09/23/19 09:00 Constitutional: Yes: Calm Eyes: Yes: Conjunctiva Clear HENT: Yes: Atraumatic Neck: Yes: Supple Cardiovascular: Yes: S1, S2 Respiratory: Yes: CTA Bilaterally Gastrointestinal: Yes: Soft Genitourinary: Yes: WNL Musculoskeletal: Yes: WNL Edema: No Integumentary: Yes: WNL Neurological: Yes: Oriented Psychiatric: Yes: Oriented Labs: CBC, BMP 09/23/19 09:25 09/23/19 09:25 INR, PTT INR 1.23 (0.83-1.09) H 09/14/19 05:27 Problem List - Problems (1) Anemia Code(s): D64.9 - ANEMIA, UNSPECIFIED (2) Abnormal EKG Code(s): R94.31 - ABNORMAL ELECTROCARDIOGRAM [ECG] [EKG] (3) Acute CHF (congestive heart failure) Code(s): I50.9 - HEART FAILURE, UNSPECIFIED (4) CAD (coronary artery disease) Code(s): I25.10 - ATHSCL HEART DISEASE OF [place] CORONARY ARTERY W/O ANG PCTRS Qualifiers: Coronary Disease-Associated Artery/Lesion type: [place] coronary artery Associated angina: with other forms of angina pectoris (5) CKD (chronic kidney disease) Code(s): N18.9 - CHRONIC KIDNEY DISEASE, UNSPECIFIED Qualifiers: Chronic kidney disease stage: unspecified stage Qualified Code(s): N18.9 - Chronic kidney disease, unspecified Assessment/Plan Current Medications Generic Name Dose Route Start Last Admin Trade Name Freq PRN Reason Stop Dose Admin Al Hydroxide/Mg Hydroxide 30 ml 09/22/19 19:20 Mylanta Suspension - PO Q6HPO PRN DYSPEPSIA Calcium Acetate 667 mg 09/23/19 08:00 09/23/19 13:15 Phoslo - PO 667 mg TIDCM ALDO Administration Calcium Carbonate/Cholecalciferol 1 tab 09/23/19 10:00 09/23/19 13:16 Os-Sergey 500+D - PO 1 tab DAILY [facility]DO Administration Famotidine 20 mg 09/23/19 10:00 09/23/19 13:16 Pepcid - PO 20 mg DAILY [facility] Administration Furosemide 80 mg 09/24/19 10:00 Lasix - PO Q48H [facility] Hydralazine HCl 50 mg 09/23/19 10:00 09/23/19 13:16 Apresoline - PO 50 mg BID ALDO Administration Insulin Aspart 1 vial 09/23/19 07:00 09/23/19 12:42 Novolog Vial Sliding Scale - SQ Not Given TIDAC [facility] Protocol Melatonin 5 mg 09/22/19 22:28 09/22/19 23:24 Melatonin PO 5 mg HS PRN Administration INSOMNIA Metoprolol Tartrate 50 mg 09/23/19 10:00 09/23/19 13:16 Lopressor - PO 50 mg BID ALDO Administration Neomycin/Polymyxin/Hydrocortisone 4 drop 09/23/19 00:00 09/23/19 13:20 Cortisporin Otic Solution - AD Not Given Q6HPO ALDO Pancrelipase 1 cap 09/23/19 08:00 09/23/19 13:15 Diana Wang 36,000 Units Capsule PO 1 cap TIDCM [facility] Administration Pramipexole Dihydrochloride 0.25 mg 09/23/19 22:00 Mirapex - PO HS [facility]DO Rifaximin 550 mg 09/23/19 06:00 09/23/19 13:16 Xifaxan - PO 550 mg TID [facility]DO Administration Simethicone 80 mg 09/22/19 22:28 Mylicon - PO QID PRN GAS Sitagliptin Phosphate 25 mg 09/23/19 07:00 09/23/19 06:52 Januvia - PO 25 mg DAILY@0700 [facility]DO Administration Impression 1. CKD 2. anemia 3. CHF 4. HTN 5. DM 6. hyperlipidemia 7. anxiety 8. uterine cancer 9. hx GI bleed 10. COPD 11. breast cancer 12. hyperkalemia 13. ESRD Plan - pt tolerated HD - pending placement - pt does not want epogen - potassium improved - renal diet
[2019-09-23] MEDS: PRAMIPEXOLE DIHYDROCHLORIDE 0.25 MG TABLET PO SCH (21:40)
[2019-09-24] MEDS: MELATONIN 5 MG TABLETS PO PRN (01:08)
[2019-09-24] MEDS: RIFAXIMIN 550 MG TABLET (UD) PO SCH ×3 (06:12→21:59)
[2019-09-24] MEDS: INSULIN SLIDING SCALE (NOVOLOG) 1 VIAL SQ SCH ×3 (06:12→16:32)
[2019-09-24] MEDS: NEOMYCIN/POLYMYXN/HC OTIC SOLUTION 10 ML BOTTLE AD SCH ×4 (06:12→23:45)
[2019-09-24 07:51] LABS: HEMATOCRIT 29.3 % (32.4-45.2); HEMOGLOBIN 9.4 GM/dL (10.7-15.3); MCH 30.3 pg (25.7-33.7); MCHC 32.2 g/dl (32.0-36.0); MEAN CELL VOLUME 94.1 fl (80-96); MEAN PLT VOLUME 9.4 fl (7.5-11.1); PLATELET COUNT 131 K/MM3 (134-434); RBC 3.11 M/mm3 (3.60-5.2); RDW 17.1 % (11.6-15.6)
[2019-09-24 08:17] LABS: ALBUMIN 3.2 g/dl (3.4-5.0); BLOOD UREA NITROGEN 36.8 mg/dL (7-18); CALCIUM 8.2 mg/dL (8.5-10.1); CREATININE 2.6 mg/dL (0.55-1.3); POTASSIUM 3.8 mmol/L (3.5-5.1); TOT PROT 6.3 g/dl (6.4-8.2)
[2019-09-24] MEDS ORDERED: FUROSEMIDE 40 MG TABLET (FP) PO SCH (10:00)
[2019-09-24] MEDS ORDERED: PT OWN MED DRAWER 7, Y5N ONE (11:09)
[2019-09-24] MEDS: FAMOTIDINE 20 MG TABLET PO SCH (11:10)
[2019-09-24] MEDS: hydrALAZINE HCL 50 MG TABLET (FP) PO SCH ×2 (11:10→21:59)
[2019-09-24] MEDS: METOPROLOL TARTRATE 50 MG TABLET (FP) PO SCH ×2 (11:10→21:59)
[2019-09-24] MEDS: CALCIUM ACETATE 667 MG CAPSULE (FP) PO SCH ×3 (11:10→18:15)
[2019-09-24] MEDS: LIPASE/PROTEASE/AMYLASE 36,000 UNIT CAPSULE PO SCH ×3 (11:11→18:15)
[2019-09-24] MEDS: CALCIUM 500MG/VIT-D 200 UNITS COMBO TABLET (FP) PO SCH (11:11)
--- NOTE | 2019-09-24 11:53 | PN ---
Progress Note, Physician Chief Complaint: no CP, sob, dizziness - Current Medication List Current Medications: Active Medications Al Hydroxide/Mg Hydroxide (Mylanta Suspension -) 30 ml PO Q6HPO PRN PRN Reason: DYSPEPSIA Calcium Acetate (Phoslo -) 667 mg PO TIDCM [facility] Last Admin: 09/24/19 11:10 Dose: 667 mg Calcium Carbonate/Cholecalciferol (Os-Sergey 500+D -) 1 tab PO DAILY [facility] Last Admin: 09/24/19 11:11 Dose: 1 tab Famotidine (Pepcid -) 20 mg PO DAILY [facility] Last Admin: 09/24/19 11:10 Dose: 20 mg Furosemide (Lasix -) 80 mg PO Q48H [facility] Last Admin: 09/24/19 11:10 Dose: 80 mg Hydralazine HCl (Apresoline -) 50 mg PO BID [facility] Last Admin: 09/24/19 11:10 Dose: 50 mg Insulin Aspart (Novolog Vial Sliding Scale -) 1 vial SQ TIDAC [facility]; Protocol Last Admin: 09/24/19 11:27 Dose: Not Given Melatonin (Melatonin) 5 mg PO HS PRN PRN Reason: INSOMNIA Last Admin: 09/24/19 01:08 Dose: 5 mg Metoprolol Tartrate (Lopressor -) 50 mg PO BID [facility] Last Admin: 09/24/19 11:10 Dose: 50 mg Neomycin/Polymyxin/Hydrocortisone (Cortisporin Otic Solution -) 4 drop AD Q6HPO [facility] Last Admin: 09/24/19 06:12 Dose: 4 drop Pancrelipase (Creon Dr 36,000 Units Capsule) 1 cap PO TIDCM [facility] Last Admin: 09/24/19 11:11 Dose: 1 cap Pramipexole Dihydrochloride (Mirapex -) 0.25 mg PO HS [facility] Last Admin: 09/23/19 21:40 Dose: 0.25 mg Rifaximin (Xifaxan -) 550 mg PO TID [facility] Last Admin: 09/24/19 06:12 Dose: 550 mg Simethicone (Mylicon -) 80 mg PO QID PRN PRN Reason: GAS Sitagliptin Phosphate (Januvia -) 25 mg PO DAILY@0700 [facility] Last Admin: 09/24/19 06:14 Dose: Not Given - Objective Vital Signs: Vital Signs Temperature 98.2 F 09/24/19 06:00 Pulse Rate 68 09/24/19 10:00 Respiratory Rate 18 09/24/19 10:00 Blood Pressure 168/80 09/24/19 10:00 O2 Sat by Pulse Oximetry (%) 97 09/24/19 09:00 Constitutional: Yes: No Distress Cardiovascular: Yes: Regular Rate and Rhythm Respiratory: Yes: CTA Bilaterally Gastrointestinal: Yes: Soft Edema: No Neurological: Yes: Alert, Oriented Labs: CBC, BMP 09/24/19 07:25 09/24/19 07:25 INR, PTT INR 1.23 (0.83-1.09) H 09/14/19 05:27 Assessment/Plan Assessment/Plan Echo 08/03: mod LVE, mod decr EF (global). nl RV. mild-mod MR, mod TR. RVSP 45. LHC 06/29: nl EDP; EF 40% (global); 50-60% OM1 (normal FFR); mild dz others MIBI 06/29 (pers): no STs; moder, partly rev defect AW c/w ischemia; mild LVE, mild-mod global LV hypo (40% EF); MILD TID MIBI 08/27 (pers): no ST change; TDS perfusion b/c of GI artifact and gating artifact; mild LV dilation and mild decr EFvisually (no TID) CXR: cardiomegaly, no congestion echo 05/2018 LV mildly dilated, borderline reduced LV function, grade II diastolic dysfunction, elevated filling pressures, LA mildly dilated, mild MAC, mild MR, mod TR, PASP at least 59 mmHg, no effusion EKG: sinus, nl intervals, no ischemic changes echo 08/2019 mild global hypokinesis EF 45%, RV nl, RA mod dilated, tr-mild MR, mod TR, RVSP at least 55 mmHg, severe pulm HTN ASSESSMENT/PLAN 63 yo smoker with h/o systolic cardiomyopathy, non-obstructive cad, HTN, HL, pHTN, PAD, mod PARVEZ on cpap, CKD (cr 1.8 - 2.2), DM, h/o GIB s/p cauterization of avm's, breast cancer p/w abnormal labs LYSSA, hyperkalemia: - now s/p permacath, on HD - lasix per renal elevated trop: - likely demand in setting of LYSSA, no signs ACS - echo mildly reduced LV function chronic systolic CHF: -borderline reduced LV function 2018, on lasix at home - BNP >[id number] in setting of LYSSA - started on HD, lasix per renal. - not on EVELINA/ARB due to recurrent severe hyperkalemia - cont bb - appears euvolemic anemia: - heme consulted, stool guaiac negative. Chronic ischemic heart disease: - nonobstructive OM dz inc FFR negative, no history of angina -continue statin - no asa - hx anemia Essential hypertension: at times slightly above goal -cont hydralazine, beta [place]hel; can add amlodipine 2.5 mg daily and titrate to goal of < 150/90 Chronic obstructive pulmonary disease -STABLE ON BB LONG TIME -no current sx's Obstructive sleep apnea -USES CPAP AT HOME and intermittently here. breast ca -manage per heme/onc PAD: - known h/o obstructive RLE disease, claudication--deferred [employer] previously due to risks of contrast nephropathy
--- NOTE | 2019-09-24 12:44 | PN ---
Progress Note (short form) - Note Progress Note: PULMONARY APPEARS STABLE ON N/C O2 VSS/AFEBRILE Constitutional: Yes: NAD Eyes: Yes: WNL HENT: Yes: WNL Neck: Yes: WNL Cardiovascular: Yes: Regular Rate and Rhythm, S1, S2 Respiratory: Yes: Diminished at the bases Gastrointestinal: Yes: Normal Bowel Sounds, Soft Extremities: Yes: WNL Edema: No Labs:NOTED Problem List - Problems (1) Acute on chronic systolic (congestive) heart failure Code(s): I50.23 - ACUTE ON CHRONIC SYSTOLIC (CONGESTIVE) HEART FAILURE (2) Acute on chronic systolic (congestive) heart failure Code(s): I50.23 - ACUTE ON CHRONIC SYSTOLIC (CONGESTIVE) HEART FAILURE (3) Anemia Code(s): D64.9 - ANEMIA, UNSPECIFIED (4) Acute hyperkalemia Code(s): E87.5 - HYPERKALEMIA (5) Benign hypertension Code(s): I10 - ESSENTIAL (PRIMARY) HYPERTENSION (6) CAD (coronary artery disease) Code(s): I25.10 - ATHSCL HEART DISEASE OF [place] CORONARY ARTERY W/O ANG PCTRS Qualifiers: Coronary Disease-Associated Artery/Lesion type: [place] coronary artery Associated angina: with other forms of angina pectoris (7) CKD (chronic kidney disease) Code(s): N18.9 - CHRONIC KIDNEY DISEASE, UNSPECIFIED Qualifiers: Chronic kidney disease stage: unspecified stage Qualified Code(s): N18.9 - Chronic kidney disease, unspecified (8) Controlled type 2 diabetes mellitus with diabetic peripheral angiopathy without gangrene Code(s): E11.51 - TYPE 2 DIABETES W DIABETIC PERIPHERAL ANGIOPATH W/O GANGRENE (9) Edema Code(s): R60.9 - EDEMA, UNSPECIFIED Qualifiers: Edema type: generalized Qualified Code(s): R60.1 - Generalized edema (10) HTN (hypertension) Code(s): I10 - ESSENTIAL (PRIMARY) HYPERTENSION (11) Hyperkalemia Code(s): E87.5 - HYPERKALEMIA (12) Nausea Code(s): R11.0 - NAUSEA (13) PARVEZ on CPAP Code(s): G47.33 - OBSTRUCTIVE SLEEP APNEA (ADULT) (PEDIATRIC) (14) PVD (peripheral vascular disease) Code(s): I73.9 - PERIPHERAL VASCULAR DISEASE, UNSPECIFIED (15) Pulmonary hypertension Code(s): I27.2 - OTHER SECONDARY PULMONARY HYPERTENSION * DO NOT USE * (16) SOB (shortness of breath) Code(s): R06.02 - SHORTNESS OF BREATH (17) Sleep apnea, obstructive Code(s): G47.33 - OBSTRUCTIVE SLEEP APNEA (ADULT) (PEDIATRIC) (18) Smoker Code(s): F17.200 - NICOTINE DEPENDENCE, UNSPECIFIED, UNCOMPLICATED (19) Smoker unmotivated to quit Code(s): F17.210 - NICOTINE DEPENDENCE, CIGARETTES, UNCOMPLICATED (20) Weakness Code(s): R53.1 - WEAKNESS Assessment/Plan IMP ACUTE ON CHRONIC SYSTOLIC CHF PULMONARY HTN ASHD ACUTE ON CHRONIC KIDNEY FAILURE HYPERKALEMIA PARVEZ PT NON-COMPLIANT WITH CPAP COPD SMOKER ANEMIA HTN HLD DM H/O GIB NAUSEA H/O BREAST CA PLAN LASIX PER RENAL O2/HD INHALED BRONCHODILATORS MONITOR LYTES ,RENAL FUNCTION MONITOR H+H SMOKING CESSATION COUNSELED SCHEDULED FOR DISCHARGE TOMORROW Kevin FELIZ MD
[2019-09-24 13:26] VITALS: BMI 32.5
[2019-09-24] MEDS ORDERED: SODIUM CHLORIDE 250 ML IV PRN (14:57)
--- NOTE | 2019-09-24 14:57 | PN ---
Progress Note, Physician History of Present Illness: Pt seen and examined at bedside. She is awake and alert. She denies shortness of breath. - Current Medication List Current Medications: Active Medications Al Hydroxide/Mg Hydroxide (Mylanta Suspension -) 30 ml PO Q6HPO PRN PRN Reason: DYSPEPSIA Calcium Acetate (Phoslo -) 667 mg PO TIDCM [facility] Last Admin: 09/24/19 14:21 Dose: 667 mg Calcium Carbonate/Cholecalciferol (Os-Sergey 500+D -) 1 tab PO DAILY [facility] Last Admin: 09/24/19 11:11 Dose: 1 tab Famotidine (Pepcid -) 20 mg PO DAILY [facility] Last Admin: 09/24/19 11:10 Dose: 20 mg Furosemide (Lasix -) 80 mg PO Q48H [facility] Last Admin: 09/24/19 11:10 Dose: 80 mg Hydralazine HCl (Apresoline -) 50 mg PO BID [facility] Last Admin: 09/24/19 11:10 Dose: 50 mg Insulin Aspart (Novolog Vial Sliding Scale -) 1 vial SQ TIDAC [facility]; Protocol Last Admin: 09/24/19 11:27 Dose: Not Given Melatonin (Melatonin) 5 mg PO HS PRN PRN Reason: INSOMNIA Last Admin: 09/24/19 01:08 Dose: 5 mg Metoprolol Tartrate (Lopressor -) 50 mg PO BID [facility] Last Admin: 09/24/19 11:10 Dose: 50 mg Neomycin/Polymyxin/Hydrocortisone (Cortisporin Otic Solution -) 4 drop AD Q6HPO [facility] Last Admin: 09/24/19 14:22 Dose: 4 drop Pancrelipase (Creon Dr 36,000 Units Capsule) 1 cap PO TIDCM [facility] Last Admin: 09/24/19 14:21 Dose: 1 cap Pramipexole Dihydrochloride (Mirapex -) 0.25 mg PO HS [facility] Last Admin: 09/23/19 21:40 Dose: 0.25 mg Rifaximin (Xifaxan -) 550 mg PO TID [facility] Last Admin: 09/24/19 14:21 Dose: 550 mg Simethicone (Mylicon -) 80 mg PO QID PRN PRN Reason: GAS Sitagliptin Phosphate (Januvia -) 25 mg PO DAILY@0700 [facility] Last Admin: 09/24/19 06:14 Dose: Not Given - Objective Vital Signs: Vital Signs Temperature 98.2 F 09/24/19 06:00 Pulse Rate 68 09/24/19 10:00 Respiratory Rate 18 09/24/19 10:00 Blood Pressure 168/80 09/24/19 10:00 O2 Sat by Pulse Oximetry (%) 97 09/24/19 09:00 Constitutional: Yes: Calm Eyes: Yes: Conjunctiva Clear HENT: Yes: Atraumatic Neck: Yes: Supple Cardiovascular: Yes: S1, S2 Respiratory: Yes: CTA Bilaterally Gastrointestinal: Yes: Soft Genitourinary: Yes: WNL Musculoskeletal: Yes: WNL Edema: No Integumentary: Yes: WNL Neurological: Yes: Oriented Psychiatric: Yes: Oriented Labs: CBC, BMP 09/24/19 07:25 09/24/19 07:25 INR, PTT INR 1.23 (0.83-1.09) H 09/14/19 05:27 Problem List - Problems (1) Anemia Code(s): D64.9 - ANEMIA, UNSPECIFIED (2) Abnormal EKG Code(s): R94.31 - ABNORMAL ELECTROCARDIOGRAM [ECG] [EKG] (3) Acute CHF (congestive heart failure) Code(s): I50.9 - HEART FAILURE, UNSPECIFIED (4) CAD (coronary artery disease) Code(s): I25.10 - ATHSCL HEART DISEASE OF [place] CORONARY ARTERY W/O ANG PCTRS Qualifiers: Coronary Disease-Associated Artery/Lesion type: [place] coronary artery Associated angina: with other forms of angina pectoris (5) CKD (chronic kidney disease) Code(s): N18.9 - CHRONIC KIDNEY DISEASE, UNSPECIFIED Qualifiers: Chronic kidney disease stage: unspecified stage Qualified Code(s): N18.9 - Chronic kidney disease, unspecified Assessment/Plan Current Medications Generic Name Dose Route Start Last Admin Trade Name Freq PRN Reason Stop Dose Admin Al Hydroxide/Mg Hydroxide 30 ml 09/22/19 19:20 Mylanta Suspension - PO Q6HPO PRN DYSPEPSIA Calcium Acetate 667 mg 09/23/19 08:00 09/24/19 14:21 Phoslo - PO 667 mg TIDCM [facility]DO Administration Calcium Carbonate/Cholecalciferol 1 tab 09/23/19 10:00 09/24/19 11:11 Os-Sergey 500+D - PO 1 tab DAILY [facility]DO Administration Famotidine 20 mg 09/23/19 10:00 09/24/19 11:10 Pepcid - PO 20 mg DAILY [facility]DO Administration Furosemide 80 mg 09/24/19 10:00 09/24/19 11:10 Lasix - PO 80 mg Q48H ALDO Administration Hydralazine HCl 50 mg 09/23/19 10:00 09/24/19 11:10 Apresoline - PO 50 mg BID ALDO Administration Insulin Aspart 1 vial 09/23/19 07:00 09/24/19 11:27 Novolog Vial Sliding Scale - SQ Not Given TIDAC [facility] Protocol Melatonin 5 mg 09/22/19 22:28 09/24/19 01:08 Melatonin PO 5 mg HS PRN Administration INSOMNIA Metoprolol Tartrate 50 mg 09/23/19 10:00 09/24/19 11:10 Lopressor - PO 50 mg BID ALDO Administration Neomycin/Polymyxin/Hydrocortisone 4 drop 09/23/19 00:00 09/24/19 14:22 Cortisporin Otic Solution - AD 4 drop Q6HPO ALDO Administration Pancrelipase 1 cap 09/23/19 08:00 09/24/19 14:[address] 36,000 Units Capsule PO 1 cap TIDCM [facility] Administration Pramipexole Dihydrochloride 0.25 mg 09/23/19 22:00 09/23/19 21:40 Mirapex - PO 0.25 mg HS ALDO Administration Rifaximin 550 mg 09/23/19 06:00 09/24/19 14:21 Xifaxan - PO 550 mg TID ALDO Administration Simethicone 80 mg 09/22/19 22:28 Mylicon - PO QID PRN GAS Sitagliptin Phosphate 25 mg 09/23/19 07:00 09/24/19 06:14 Januvia - PO Not Given DAILY@0700 [facility] Impression 1. CKD 2. anemia 3. CHF 4. HTN 5. DM 6. hyperlipidemia 7. anxiety 8. uterine cancer 9. hx GI bleed 10. COPD 11. breast cancer 12. hyperkalemia 13. ESRD Plan - HD tomorrow - can be discharged after HD - has HD set up for Friday as outpt - pt does not want epogen - potassium improved - renal diet
--- NOTE | 2019-09-24 15:08 | DS ---
Physical Examination Vital Signs: Vital Signs Temperature 98.2 F 09/24/19 06:00 Pulse Rate 68 09/24/19 10:00 Respiratory Rate 18 09/24/19 10:00 Blood Pressure 168/80 09/24/19 10:00 O2 Sat by Pulse Oximetry (%) 97 09/24/19 09:00 Findings/Remarks: Laboratory Results - last 24 hr 09/20/19 09/23/19 09/24/19 15:30 17:12 06:05 WBC RBC Hgb Hct MCV MCH MCHC RDW Plt Count MPV Sodium Potassium Chloride Carbon Dioxide Anion Gap BUN Creatinine Est GFR (CKD-EPI)AfAm Est GFR (CKD-EPI)NonAf POC Glucometer 138 113 Random Glucose Calcium Total Bilirubin AST ALT Alkaline Phosphatase Total Protein Albumin Blood Type B POSITIVE Antibody Screen Negative Crossmatch See Detail 09/24/19 09/24/19 09/24/19 07:25 07:25 11:23 WBC 7.0 RBC 3.11 L Hgb 9.4 L Hct 29.3 L MCV 94.1 MCH 30.3 MCHC 32.2 RDW 17.1 H Plt Count 131 L MPV 9.4 Sodium 136 Potassium 3.8 Chloride 99 Carbon Dioxide 31 Anion Gap 5 L BUN 36.8 H Creatinine 2.6 H Est GFR (CKD-EPI)AfAm 21.87 Est GFR (CKD-EPI)NonAf 18.87 POC Glucometer 168 Random Glucose 119 H Calcium 8.2 L Total Bilirubin 1.0 AST 25 ALT 16 Alkaline Phosphatase 165 H Total Protein 6.3 L Albumin 3.2 L Blood Type Antibody Screen Crossmatch Active Medications Generic Name Dose Route Start Last Admin Trade Name Freq PRN Reason Stop Dose Admin Al Hydroxide/Mg Hydroxide 30 ml 09/22/19 19:20 Mylanta Suspension - PO Q6HPO PRN DYSPEPSIA Calcium Acetate 667 mg 09/23/19 08:00 09/24/19 14:21 Phoslo - PO 667 mg TIDCM ALDO Administration Calcium Carbonate/Cholecalciferol 1 tab 09/23/19 10:00 09/24/19 11:11 Os-Sergey 500+D - PO 1 tab DAILY ALDO Administration Famotidine 20 mg 09/23/19 10:00 09/24/19 11:10 Pepcid - PO 20 mg DAILY ALDO Administration Furosemide 80 mg 09/24/19 10:00 09/24/19 11:10 Lasix - PO 80 mg Q48H ALDO Administration Hydralazine HCl 50 mg 09/23/19 10:00 09/24/19 11:10 Apresoline - PO 50 mg BID ALDO Administration Sodium Chloride 250 mls @ 3,000 mls/hr 09/24/19 14:57 Normal Saline - IV 09/25/19 14:57 PRN PRN Hypotension during Dialysis Insulin Aspart 1 vial 09/23/19 07:00 09/24/19 11:27 Novolog Vial Sliding Scale - SQ Not Given TIDAC [facility] Protocol Melatonin 5 mg 09/22/19 22:28 09/24/19 01:08 Melatonin PO 5 mg HS PRN Administration INSOMNIA Metoprolol Tartrate 50 mg 09/23/19 10:00 09/24/19 11:10 Lopressor - PO 50 mg BID ALDO Administration Neomycin/Polymyxin/Hydrocortisone 4 drop 09/23/19 00:00 09/24/19 14:22 Cortisporin Otic Solution - AD 4 drop Q6HPO ALDO Administration Pancrelipase 1 cap 09/23/19 08:00 09/24/19 14:21 Crebianca Wang 36,000 Units Capsule PO 1 cap TIDCM ALDO Administration Pramipexole Dihydrochloride 0.25 mg 09/23/19 22:00 09/23/19 21:40 Mirapex - PO 0.25 mg HS ALDO Administration Rifaximin 550 mg 09/23/19 06:00 09/24/19 14:21 Xifaxan - PO 550 mg TID ALDO Administration Simethicone 80 mg 09/22/19 22:28 Mylicon - PO QID PRN GAS Sitagliptin Phosphate 25 mg 09/23/19 07:00 09/24/19 06:14 Januvia - PO Not Given DAILY@0700 [facility] Constitutional: Yes: No Distress, Calm Eyes: Yes: Conjunctiva Clear HENT: Yes: Atraumatic Cardiovascular: Yes: Regular Rate and Rhythm Respiratory: Yes: Regular, Diminished Gastrointestinal: Yes: Normal Bowel Sounds, Soft Musculoskeletal: Yes: Muscle Weakness Extremities: Yes: WNL Edema: No Neurological: Yes: Alert, Oriented Psychiatric: Yes: Alert, Oriented Labs: CBC, BMP 09/24/19 07:25 09/24/19 07:25 Discharge Summary Problems reviewed: Yes Reason For Visit: ACUTE RENAL FAILURE , ANEMIA ,HYPERKALEMIA Current Active Problems Acute on chronic systolic (congestive) heart failure (Acute) Acute on chronic systolic (congestive) heart failure (Acute) Anemia (Acute) Elevated troponin (Acute) Nausea (Acute) Right ear pain (Acute) Transaminitis (Acute) Hospital Course: The patient is a 63 year old female who presents to the emergency department from her PCP Dr Mcgrath for evaluation of anemia and possible transfusion. The patient complains of 1 weeks of SOB, dizziness, nausea, and vomiting. PMH: HTN, HLD, DM, PAD, anemia hx of transfusions, COPD, PARVEZ, CKD, CAD, HFrEF, R breast CA (s/p R lumpectomy 2017) per patient she has not been feeling well for last one week feeling weak and nauseous and tired, she says she just does not feel good and notice her abdomen increasing in size she has an appetite wants to eat but feels not good called her PMD who told her to come to ER.no fever , no dyuria no melena no shortness of breath or leg swelling in er on labs [id number], cr 4.8 potassium 6.4, carbonate 15 Patient had shiley placed and had emergency dialysis done. Permacath placed by vascular and she began having scheduled dialysis and renal function improved. Condition: Stable - Instructions Diet, Activity, Other Instructions: Follow up with PMD 1 week from discharge Follow up with Grommet Worker Dr Naqvi for Congested HEart Failure Follow up with Renal Dr Moore for kidney disease follow up with GI Dr Feliz for nausea and further outpatient workup follow up with oncologist as scheduled continue with dialysis on Friday, , Friday Renal diet Will begin dialysis this Friday return to ER if develop severe pain, respiratory distress, chest pain Referrals: Anyi Mcgrath MD [Primary Care Provider] - Pawan Naqvi MD [Staff Physician] - Ranjan Rasmussen MD [Staff Physician] - Tanmay Moore MD [Staff Physician] - Hugo Feilz MD [Staff Physician] - Disposition: VNS/HOME HEALTH CARE - Home Medications Comprehensive Discharge Medication List: Ambulatory Orders hydrALAZINE HCL [Apresoline -] 50 mg PO BID #60 tablet 11/19/14 Alprazolam [Xanax] 0.5 mg PO HS 06/23/17 Fluticasone/Vilanterol [Breo Ellipta 100-25 Mcg INH] 1 each IH DAILY 11/28/17 Atorvastatin Ca [Lipitor] 20 mg PO HS #30 tab 03/11/18 Folic Acid 1 mg PO DAILY #30 tab 03/11/18 Neomycin/Polymyxn/Hc [Cortisporin *Otic Solution*-] 4 drop AD Q6HPO #1 drops Pramipexole Dihydrochloride [Mirapex -] 0.25 mg PO HS #30 tablet 04/09/18 Metoprolol Tartrate [Lopressor -] 50 mg PO BID 05/14/18 Albuterol 2.5/Ipratropium 0.5 [Duoneb -] 1 amp NEB RQID PRN 07/11/18 Calcium 500Mg/Vit-D 200 Units [Os-Sergey 500+D -] 1 tab PO DAILY #30 tab 09/24/19 Calcium Acetate [Phoslo -] 667 mg PO TIDCM #90 capsule 09/24/19 Famotidine [Pepcid -] 20 mg PO DAILY #30 tablet 09/24/19 Furosemide [Lasix -] 80 mg PO Q48H #60 tablet 09/24/19 Lipase/Protease/Amylase [Diana Wang 36,000 Units Capsule] 1 cap PO TIDCM #90 capsule. 09/24/19 Rifaximin [Xifaxan -] 550 mg PO TID #21 tablet 09/24/19 Simethicone [Mylicon -] 80 mg PO QID PRN #90 tab.chew 09/24/19 Sitagliptin Phosphate [Januvia -] 25 mg PO DAILY@0700 #30 tab 09/24/19
[2019-09-24] MEDS: PRAMIPEXOLE DIHYDROCHLORIDE 0.25 MG TABLET PO SCH (21:59)
[2019-09-25] MEDS: RIFAXIMIN 550 MG TABLET (UD) PO SCH (06:27)
[2019-09-25] MEDS: INSULIN SLIDING SCALE (NOVOLOG) 1 VIAL SQ SCH ×2 (06:27→10:51)
[2019-09-25] MEDS: NEOMYCIN/POLYMYXN/HC OTIC SOLUTION 10 ML BOTTLE AD SCH (06:27)
[2019-09-25 07:06] VITALS: TEMP 98.3
[2019-09-25 08:34] LABS: HEMATOCRIT 28.2 % (32.4-45.2); HEMOGLOBIN 9.2 GM/dL (10.7-15.3); MCH 30.6 pg (25.7-33.7); MCHC 32.8 g/dl (32.0-36.0); MEAN CELL VOLUME 93.2 fl (80-96); MEAN PLT VOLUME 9.4 fl (7.5-11.1); PLATELET COUNT 142 K/MM3 (134-434); RBC 3.02 M/mm3 (3.60-5.2); RDW 17.1 % (11.6-15.6); WHITE BLOOD COUNT 6.6 K/mm3 (4.0-10.0)
[2019-09-25 08:53] LABS: BLOOD UREA NITROGEN 45.1 mg/dL (7-18); CREATININE 3.1 mg/dL (0.55-1.3); POTASSIUM 3.8 mmol/L (3.5-5.1)
--- NOTE | 2019-09-25 09:59 | PN ---
Progress Note (short form) - Note Progress Note: Renal follow up for CKD now ESRD Seen and examined while on dialysis BP stable, tolerated 2L UF catheter working well pt became anxious during the treatment and requested BIPAP, now off mask and feels fine Vital Signs Temperature 98.3 F 09/25/19 06:45 Pulse Rate 83 09/25/19 09:20 Respiratory Rate 18 09/25/19 09:20 Blood Pressure 177/87 H 09/25/19 09:20 O2 Sat by Pulse Oximetry (%) 95 09/25/19 08:48 Intake & Output 09/22/19 09/23/19 09/24/19 09/25/19 23:59 23:59 23:59 23:59 Intake Total 440 1560 500 250 Output Total 2000 Balance 440 -440 500 250 Weight 90.446 kg 92.306 kg 91.654 kg 93.848 kg NAD Dec BS no LE edema CBC, BMP 09/25/19 06:55 09/25/19 06:55 Current Medications Al Hydroxide/Mg Hydroxide (Mylanta Suspension -) 30 ml PO Q6HPO PRN PRN Reason: DYSPEPSIA Calcium Acetate (Phoslo -) 667 mg PO TIDCM [facility] Last Admin: 09/24/19 18:15 Dose: 667 mg Calcium Carbonate/Cholecalciferol (Os-Sergey 500+D -) 1 tab PO DAILY [facility] Last Admin: 09/24/19 11:11 Dose: 1 tab Famotidine (Pepcid -) 20 mg PO DAILY [facility] Last Admin: 09/24/19 11:10 Dose: 20 mg Furosemide (Lasix -) 80 mg PO Q48H [facility] Last Admin: 09/24/19 11:10 Dose: 80 mg Hydralazine HCl (Apresoline -) 50 mg PO BID [facility] Last Admin: 09/24/19 21:59 Dose: 50 mg Sodium Chloride (Normal Saline -) 250 mls @ 3,000 mls/hr IV PRN PRN PRN Reason: Hypotension during Dialysis Stop: 09/25/19 14:57 Insulin Aspart (Novolog Vial Sliding Scale -) 1 vial SQ TIDAC [facility]; Protocol Last Admin: 09/25/19 06:27 Dose: Not Given Melatonin (Melatonin) 5 mg PO HS PRN PRN Reason: INSOMNIA Last Admin: 09/24/19 01:08 Dose: 5 mg Metoprolol Tartrate (Lopressor -) 50 mg PO BID [facility] Last Admin: 09/24/19 21:59 Dose: 50 mg Neomycin/Polymyxin/Hydrocortisone (Cortisporin Otic Solution -) 4 drop AD Q6HPO [facility] Last Admin: 09/25/19 06:27 Dose: 4 drop Pancrelipase (Creon Dr 36,000 Units Capsule) 1 cap PO TIDCM [facility] Last Admin: 09/24/19 18:15 Dose: 1 cap Pramipexole Dihydrochloride (Mirapex -) 0.25 mg PO HS [facility] Last Admin: 09/24/19 21:59 Dose: 0.25 mg Rifaximin (Xifaxan -) 550 mg PO TID [facility] Last Admin: 09/25/19 06:27 Dose: 550 mg Simethicone (Mylicon -) 80 mg PO QID PRN PRN Reason: GAS Sitagliptin Phosphate (Januvia -) 25 mg PO DAILY@0700 [facility] Last Admin: 09/25/19 06:27 Dose: Not Given Impression 1. CKD 2. anemia 3. CHF 4. HTN 5. DM 6. hyperlipidemia 7. anxiety 8. uterine cancer 9. hx GI bleed 10. COPD 11. breast cancer 12. hyperkalemia 13. ESRD Plan Tolerated dialysis well this AM stable for discharge home with outpatient dialysis schedule for Friday. Continue Oral Lasix. Thank you Mor Oseguera DO
[2019-09-25] MEDS ORDERED: PT OWN MED DRAWER 7, Y5N ONE (10:35)
[2019-09-25] MEDS: METOPROLOL TARTRATE 50 MG TABLET (FP) PO SCH (10:44)
[2019-09-25] MEDS: hydrALAZINE HCL 50 MG TABLET (FP) PO SCH (10:44)
[2019-09-25] MEDS: CALCIUM ACETATE 667 MG CAPSULE (FP) PO SCH (10:44)
[2019-09-25] MEDS: FAMOTIDINE 20 MG TABLET PO SCH (10:44)
[2019-09-25] MEDS: LIPASE/PROTEASE/AMYLASE 36,000 UNIT CAPSULE PO SCH (10:45)
--- NOTE | 2019-09-25 11:15 | PN ---
Progress Note (short form) - Note Progress Note: Resting in NAD. No acute events. Intake & Output 09/22/19 09/23/19 09/24/19 09/25/19 23:59 23:59 23:59 23:59 Intake Total 440 1560 500 550 Output Total 2000 1900 Balance 440 -440 500 -1350 Weight 199 lb 6.4 oz 203 lb 8 oz 202 lb 1 oz 206 lb 14.4 oz Last Vital Signs Temp Pulse Resp BP Pulse Ox 98.3 F 85 18 191/81 H 95 09/25/19 10:00 09/25/19 10:06 09/25/19 10:06 09/25/19 10:06 09/25/19 08:48 Active Medications Al Hydroxide/Mg Hydroxide (Mylanta Suspension -) 30 ml PO Q6HPO PRN PRN Reason: DYSPEPSIA Calcium Acetate (Phoslo -) 667 mg PO TIDCM [facility] Last Admin: 09/25/19 10:44 Dose: 667 mg Calcium Carbonate/Cholecalciferol (Os-Sergey 500+D -) 1 tab PO DAILY [facility] Last Admin: 09/24/19 11:11 Dose: 1 tab Famotidine (Pepcid -) 20 mg PO DAILY [facility] Last Admin: 09/25/19 10:44 Dose: 20 mg Furosemide (Lasix -) 80 mg PO Q48H [facility] Last Admin: 09/24/19 11:10 Dose: 80 mg Hydralazine HCl (Apresoline -) 50 mg PO BID [facility] Last Admin: 09/25/19 10:44 Dose: 50 mg Insulin Aspart (Novolog Vial Sliding Scale -) 1 vial SQ TIDAC [facility]; Protocol Last Admin: 09/25/19 10:51 Dose: Not Given Melatonin (Melatonin) 5 mg PO HS PRN PRN Reason: INSOMNIA Last Admin: 09/24/19 01:08 Dose: 5 mg Metoprolol Tartrate (Lopressor -) 50 mg PO BID [facility] Last Admin: 09/25/19 10:44 Dose: 50 mg Neomycin/Polymyxin/Hydrocortisone (Cortisporin Otic Solution -) 4 drop AD Q6HPO [facility] Last Admin: 09/25/19 06:27 Dose: 4 drop Pancrelipase (Creon Dr 36,000 Units Capsule) 1 cap PO TIDCM [facility] Last Admin: 09/25/19 10:45 Dose: 1 cap Pramipexole Dihydrochloride (Mirapex -) 0.25 mg PO HS [facility] Last Admin: 09/24/19 21:59 Dose: 0.25 mg Rifaximin (Xifaxan -) 550 mg PO TID [facility] Last Admin: 09/25/19 06:27 Dose: 550 mg Simethicone (Mylicon -) 80 mg PO QID PRN PRN Reason: GAS Sitagliptin Phosphate (Januvia -) 25 mg PO DAILY@0700 [facility] Last Admin: 09/25/19 06:27 Dose: Not Given Gen: NAD at rest Heart: RRR Lung: decreased breath sound at the bases Abd: softly distended, nontender Ext: no edema Laboratory Results - last 24 hr 09/20/19 09/24/19 09/24/19 15:30 11:23 16:31 WBC RBC Hgb Hct MCV MCH MCHC RDW Plt Count MPV Sodium Potassium Chloride Carbon Dioxide Anion Gap BUN Creatinine Est GFR (CKD-EPI)AfAm Est GFR (CKD-EPI)NonAf POC Glucometer 168 141 Random Glucose Calcium Blood Type B POSITIVE Antibody Screen Negative Crossmatch See Detail 09/25/19 09/25/19 09/25/19 06:25 06:55 06:55 WBC 6.6 RBC 3.02 L Hgb 9.2 L Hct 28.2 L MCV 93.2 MCH 30.6 MCHC 32.8 RDW 17.1 H Plt Count 142 MPV 9.4 Sodium 133 L Potassium 3.8 Chloride 97 L Carbon Dioxide 31 Anion Gap 5 L BUN 45.1 H Creatinine 3.1 H Est GFR (CKD-EPI)AfAm 17.68 Est GFR (CKD-EPI)NonAf 15.26 POC Glucometer 105 Random Glucose 110 H Calcium 8.0 L Blood Type Antibody Screen Crossmatch 09/25/19 10:50 WBC RBC Hgb Hct MCV MCH MCHC RDW Plt Count MPV Sodium Potassium Chloride Carbon Dioxide Anion Gap BUN Creatinine Est GFR (CKD-EPI)AfAm Est GFR (CKD-EPI)NonAf POC Glucometer 141 Random Glucose Calcium Blood Type Antibody Screen Crossmatch A/P Acute on Chronic Systolic Heart Failure Acute on Chronic Renal Failure now on HD Pulmonary HTN COPD CAD HTN DM Hyperlipidemia Anemia Breast Ca Smoker - HD per renal - daily weights - O2 to keep SpO2 >90% - inhaled bronchodilators - smoking cessation - DVT prophylaxis Dr Rasmussen
--- NOTE | 2019-09-25 11:22 | PN ---
Progress Note (short form) - Note Progress Note: s: no chest pain, palps, dizziness, dyspnea Current Medications Generic Name Dose Route Start Last Admin Trade Name Freq PRN Reason Stop Dose Admin Al Hydroxide/Mg Hydroxide 30 ml 09/22/19 19:20 Mylanta Suspension - PO Q6HPO PRN DYSPEPSIA Calcium Acetate 667 mg 09/23/19 08:00 09/25/19 10:44 Phoslo - PO 667 mg TIDCM ALDO Administration Calcium Carbonate/Cholecalciferol 1 tab 09/23/19 10:00 09/24/19 11:11 Os-Sergey 500+D - PO 1 tab DAILY ALDO Administration Famotidine 20 mg 09/23/19 10:00 09/25/19 10:44 Pepcid - PO 20 mg DAILY ALDO Administration Furosemide 80 mg 09/24/19 10:00 09/24/19 11:10 Lasix - PO 80 mg Q48H ALDO Administration Hydralazine HCl 50 mg 09/23/19 10:00 09/25/19 10:44 Apresoline - PO 50 mg BID ALDO Administration Insulin Aspart 1 vial 09/23/19 07:00 09/25/19 10:51 Novolog Vial Sliding Scale - SQ Not Given TIDAC [facility] Protocol Melatonin 5 mg 09/22/19 22:28 09/24/19 01:08 Melatonin PO 5 mg HS PRN Administration INSOMNIA Metoprolol Tartrate 50 mg 09/23/19 10:00 09/25/19 10:44 Lopressor - PO 50 mg BID ALDO Administration Neomycin/Polymyxin/Hydrocortisone 4 drop 09/23/19 00:00 09/25/19 06:27 Cortisporin Otic Solution - AD 4 drop Q6HPO ALDO Administration Pancrelipase 1 cap 09/23/19 08:00 09/25/19 10:45 Diana Wang 36,000 Units Capsule PO 1 cap TIDCM ALDO Administration Pramipexole Dihydrochloride 0.25 mg 09/23/19 22:00 09/24/19 21:59 Mirapex - PO 0.25 mg HS ALDO Administration Rifaximin 550 mg 09/23/19 06:00 09/25/19 06:27 Xifaxan - PO 550 mg TID ALDO Administration Simethicone 80 mg 09/22/19 22:28 Mylicon - PO QID PRN GAS Sitagliptin Phosphate 25 mg 09/23/19 07:00 09/25/19 06:27 Januvia - PO Not Given DAILY@0700 [facility] Vital Signs Period Temp Pulse Resp BP Sys/Padron Pulse Ox Last 24 Hr 97.5 F-98.8 F 64-86 18-24 154-191/65-104 91-97 Constitutional: Yes: Well Nourished, No Distress Eyes: No: Sclera Icterus Respiratory: Yes: CTA Bilaterally. No: Accessory Muscle Use, Rales, Wheezes Gastrointestinal: Yes: Normal Bowel Sounds. No: Distention, Hepatomegaly, Palpable Mass, Tenderness Cardiovascular: Yes: Regular Rate and Rhythm JVD: No Carotid Bruit: No PMI: Non-Displaced Heart Sounds: Yes: S1, S2. No: Gallop Murmur: No: Systolic Murmur, Diastolic Murmur Extremities: No: Cold, Cyanosis Edema: No Integumentary: No: Jaundice Neurological: Yes: Alert, Oriented (x3) Psychiatric: No: Agitated CBC, BMP 09/25/19 06:55 09/25/19 06:55 Assessment/Plan Echo 08/03: mod LVE, mod decr EF (global). nl RV. mild-mod MR, mod TR. RVSP 45. LHC 06/29: nl EDP; EF 40% (global); 50-60% OM1 (normal FFR); mild dz others MIBI 06/29 (pers): no STs; moder, partly rev defect AW c/w ischemia; mild LVE, mild-mod global LV hypo (40% EF); MILD TID MIBI 08/27 (pers): no ST change; TDS perfusion b/c of GI artifact and gating artifact; mild LV dilation and mild decr EFvisually (no TID) CXR: cardiomegaly, no congestion echo 05/2018 LV mildly dilated, borderline reduced LV function, grade II diastolic dysfunction, elevated filling pressures, LA mildly dilated, mild MAC, mild MR, mod TR, PASP at least 59 mmHg, no effusion EKG: sinus, nl intervals, no ischemic changes echo 08/2019 mild global hypokinesis EF 45%, RV nl, RA mod dilated, tr-mild MR, mod TR, RVSP at least 55 mmHg, severe pulm HTN ASSESSMENT/PLAN 63 yo smoker with h/o systolic cardiomyopathy, non-obstructive cad, HTN, HL, pHTN, PAD, mod PARVEZ on cpap, CKD (cr 1.8 - 2.2), DM, h/o GIB s/p cauterization of avm's, breast cancer p/w abnormal labs LYSSA, hyperkalemia: - now s/p permacath, on HD - lasix per renal elevated trop: - likely demand in setting of LYSSA, no signs ACS - echo mildly reduced LV function chronic systolic CHF: -borderline reduced LV function 2018, on lasix at home - BNP >43637 in setting of LYSSA - started on HD, lasix per renal. - not on EVELINA/ARB due to recurrent severe hyperkalemia - cont bb - appears euvolemic anemia: - heme consulted, stool guaiac negative. Chronic ischemic heart disease: - nonobstructive OM dz inc FFR negative, no history of angina -continue statin - no asa - hx anemia Essential hypertension: at goal -cont hydralazine, beta bethel. titrate up hydralazine prn. Chronic obstructive pulmonary disease -STABLE ON BB LONG TIME -no current sx's Obstructive sleep apnea -USES CPAP AT HOME and intermittently here. breast ca -manage per heme/onc PAD: - known h/o obstructive RLE disease, claudication--deferred [employer] previously due to risks of contrast nephropathy
[2019-09-25] MEDS: CALCIUM 500MG/VIT-D 200 UNITS COMBO TABLET (FP) PO SCH (11:44)
[2019-09-25 11:46] VITALS: BP 176/77; PULSE 82
== END 2019-09-25 11:46 | disposition home health service (06) | DRG 673 ==
LOC: JER 13:32 → JERBED 15:29 → J4S 09-14 00:13 → J5S 09-22 21:19
PROVIDERS: ADMIT Family Medicine; ATTEND Family Medicine
PROC: 05HM33Z Insertion of Infusion Device into Right Internal Jugular Vein, Percutaneous Approach (ICD-10-PCS; principal; 2019-09-17)
PROC: B513ZZA Fluoroscopy of Right Jugular Veins, Guidance (ICD-10-PCS; 2019-09-17)
PROC: 5A1D70Z Performance of Urinary Filtration, Intermittent, Less than 6 Hours Per Day (ICD-10-PCS; 2019-09-18)
PROC: 02PY33Z Removal of Infusion Device from Great Vessel, Percutaneous Approach (ICD-10-PCS; 2019-09-20)
PROC: 0JH60XZ Insertion of Tunneled Vascular Access Device into Chest Subcutaneous Tissue and Fascia, Open Approach (ICD-10-PCS; 2019-09-20)
PROC: 05HM33Z Insertion of Infusion Device into Right Internal Jugular Vein, Percutaneous Approach (ICD-10-PCS; 2019-09-20)
PROC: 5A1D70Z Performance of Urinary Filtration, Intermittent, Less than 6 Hours Per Day (ICD-10-PCS; 2019-09-21)
PROC: 5A1D70Z Performance of Urinary Filtration, Intermittent, Less than 6 Hours Per Day (ICD-10-PCS; 2019-09-23)
PROC: 5A1D70Z Performance of Urinary Filtration, Intermittent, Less than 6 Hours Per Day (ICD-10-PCS; 2019-09-25)
DX: N17.9 Acute kidney failure, unspecified (principal); I50.23 Acute on chronic systolic (congestive) heart failure; I13.2 Hypertensive heart and chronic kidney disease with heart failure and with stage 5 chronic kidney disease, or end stage renal disease; E78.5 Hyperlipidemia, unspecified; E11.51 Type 2 diabetes mellitus with diabetic peripheral angiopathy without gangrene; J44.9 Chronic obstructive pulmonary disease, unspecified; G47.33 Obstructive sleep apnea (adult) (pediatric); I25.10 Atherosclerotic heart disease of native coronary artery without angina pectoris; E66.9 Obesity, unspecified; Z68.33 Body mass index [BMI] 33.0-33.9, adult; E11.65 Type 2 diabetes mellitus with hyperglycemia; E87.5 Hyperkalemia; R79.89 Other specified abnormal findings of blood chemistry; F41.9 Anxiety disorder, unspecified; I25.9 Chronic ischemic heart disease, unspecified; I27.20 Pulmonary hypertension, unspecified; H92.01 Otalgia, right ear; F17.210 Nicotine dependence, cigarettes, uncomplicated; E11.43 Type 2 diabetes mellitus with diabetic autonomic (poly)neuropathy; D63.8 Anemia in other chronic diseases classified elsewhere; D50.0 Iron deficiency anemia secondary to blood loss (chronic); K31.84 Gastroparesis; R10.9 Unspecified abdominal pain; R11.0 Nausea; E11.22 Type 2 diabetes mellitus with diabetic chronic kidney disease; N18.6 End stage renal disease; Z85.3 Personal history of malignant neoplasm of breast; Z85.42 Personal history of malignant neoplasm of other parts of uterus; Z91.19 Patient's noncompliance with other medical treatment and regimen
CPT/HCPCS: 36415; 36430; 36511; 36600; 71045-TC-FY; 71250-TC; 76000-TC-FY; 76705-TC; 76775-TC; 80048; 80053; 80061; 81003; 82172; 82272; 82550; 82553; 82607; 82728; 82803; 82962; 82977; 83010; 83036; 83540; 83550; 83721; 83735; 83880; 83883; 84100; 84439; 84443; 84460; 84484; 85025; 85027; 85044; 85610; 85730; 86704; 86708; 86803; 86850; 86900; 86901; 86922; 87340; 88300-TC; 93005; 93010; 93306-TC; 94640; 94660; 94760; 97116-GP; 97161-GP; 99283-25; J1644; P9016; P9038; P9058

== ENCOUNTER 2019-12-04 16:07 | Inpatient (IN) | payer OTHER ==
[2019-12-04] MEDS ORDERED: methylPREDNISolone NA SUCC 125 MG/2 ML VIAL IVPB ONE (16:38)
[2019-12-04 16:39] VITALS: BMI 32.7
[2019-12-04] MEDS ORDERED: methylPREDNISolone NA SUCC 125 MG/2 ML VIAL ONE (16:42)
[2019-12-04] MEDS ORDERED: ALBUTEROL SO4 2.5/IPRATROPIUM 0.5 INH SOL 3 ML VIAL.NEB. NEB ONE ×2 (16:42→16:50)
[2019-12-04] MEDS: ALBUTEROL SO4 2.5/IPRATROPIUM 0.5 INH SOL 3 ML VIAL.NEB. NEB SCH ×4 (16:45→17:40)
[2019-12-04 17:00] LABS: BASO % 0.2 % (0-2.0); EOS % 1.8 % (0-4.5); HEMATOCRIT 29.1 % (32.4-45.2); HEMOGLOBIN 9.3 GM/dL (10.7-15.3); MCH 31.4 pg (25.7-33.7); MEAN CELL VOLUME 98.1 fl (80-96); MEAN PLT VOLUME 9.9 fl (7.5-11.1); MONO % 12.1 % (3.8-10.2); NEUT % 81.9 % (42.8-82.8); PLATELET COUNT 185 K/MM3 (134-434); RBC 2.97 M/mm3 (3.60-5.2); RDW 19.6 % (11.6-15.6)
[2019-12-04 17:03] LABS: VENOUS PC02 65.2 mmHg (38-52)
[2019-12-04 17:04] LABS: VENOUS PO2 89.1 mmHg (28-48)
--- NOTE | 2019-12-04 17:05 | PDOC ---
History of Present Illness - General Chief Complaint: Injury Stated Complaint: DROWSINESS Time Seen by Provider: 12/04/19 16:27 - History of Present Illness Initial Comments: 64F PMH COPD (not on home O2), ESRD (HD , , ; Last HD today), CHF, RLS BIBEMS from HD for lethargy while being dialyzed. Pt is lethargic but easily arousable to verbal stimulation. RN found pt to have saturation of 80s on RA and started her on 2L NC. Pt states she recently started medication for RLS. Pt unable to fully participate in H&P 2/2 clinical condition. NKDA HD - Dr. Moore Past History - Past Medical History Allergies/Adverse Reactions: Allergies Allergy/AdvReac Type Severity Reaction Status Date / Time No Known Allergies Allergy Verified 12/07/19 12:20 Home Medications: Ambulatory Orders Alprazolam 0.5 mg PO DAILY 12/04/19 Atorvastatin Ca [Lipitor] 20 mg PO HS 12/04/19 Folic Acid 1 mg PO DAILY 12/04/19 Furosemide [Lasix -] 40 mg PO DAILY 12/04/19 Isosorbide Mononitrate [Isosorbide Mononitrate ER] 30 mg PO BID 12/04/19 Metoprolol Succinate [Toprol Xl] 25 mg PO DAILY 12/04/19 Metoprolol Tartrate [Lopressor -] 50 mg PO BID 12/04/19 hydrALAZINE HCL [Apresoline -] 50 mg PO DAILY 12/04/19 Albuterol 0.083% Nebulizer Laura [Ventolin 0.083% Nebulizer Soln -] 1 amp NEB Q6H PRN amp 12/05/19 Albuterol 0.083% Nebulizer Laura [Ventolin 0.083% Nebulizer Soln -] 1 amp NEB Q6H PRN amp 12/05/19 Albuterol 2.5/Ipratropium 0.5 [Duoneb -] 1 amp NEB RQID amp 12/05/19 Albuterol 2.5/Ipratropium 0.5 [Duoneb -] 1 amp NEB RQID amp 12/05/19 Budesonide/Formeterol Fumarate [SYMBICORT 160/4.5mcg -] 2 puff IH BID inhaler 12/05/19 Budesonide/Formeterol Fumarate [SYMBICORT 160/4.5mcg -] 2 puff IH BID inhaler 12/05/19 Pramipexole Dihydrochloride [Mirapex -] 0.5 mg PO HS #31 tablet 12/05/19 Anemia: Yes Asthma: Yes Cancer: Yes (Uterine Ca - 2007,rt breast ca,) Cardiac Disorders: Yes (Systolic cardiomyopathy, CAD, PAD) CVA: No COPD: No CHF: Yes Dementia: No Diabetes: Yes Dialysis: Yes GI Disorders: Yes (Colon polyps) Disorders: Yes HTN: Yes Hypercholesterolemia: Yes Kidney Stones: Yes (CKD) Liver Disease: No Seizures: No Thyroid Disease: No - Surgical History Abdominal Surgery: No Appendectomy: No Cardiac Surgery: No Cholecystectomy: No Lung Surgery: No Neurologic Surgery: No Orthopedic Surgery: No - Immunization History Immunization Up to Date: Yes - Psycho Social/Smoking Cessation Hx Smoking Status: Yes Smoking History: Unknown if ever smoked Years of Tobacco Use: 31 Have you smoked in the past 12 months: Yes Number of Cigarettes Smoked Daily: 40 'Breaking Loose' booklet given: 07/11/18 Hx Alcohol Use: No Drug/Substance Use Hx: No Substance Use Type: None Hx Substance Use Treatment: No Review of Systems - Review of Systems Able to Perform ROS?: No *Physical Exam - Vital Signs Last Vital Signs Temp Pulse Resp BP Pulse Ox 97.5 F L 77 22 H 110/52 L 96 12/04/19 16:10 12/04/19 16:10 12/04/19 16:10 12/04/19 16:10 12/04/19 16:25 - Physical Exam GEN: Lethargic. AAOx3. HEENT: NC/AT, EOMI, PERRL. No facial asymmetry. Normal voice. Supple neck w/ FROM. CV: S1/S2, RRR, no m/r/g LUNG: Speaking in short 4-5 word sentences. Restricted air entry, diffuse wheezes b/l. GI: Soft, ndnt, +BS EXTREMITIES: 1+ pitting LE edema. No obvious deformities of all extremities. SKIN: Warm, dry, no rashes appreciated. PSYCH: Lethargic, agitated, at times uncooperative, fluent coherent speech. NEURO: Moving all extremities ED Treatment Course - LABORATORY CBC & Chemistry Diagram: 12/05/19 06:40 12/05/19 06:40 - ADDITIONAL ORDERS Additional order review: Laboratory Results 12/04/19 16:27 POC Glucometer 212 12/04/19 16:27 POC Glucometer 212 - Medications Given in the ED: ED Medications Discontinued Medications Generic Name Dose Route Start Last Admin Trade Name Lois PRN Reason Stop Dose Admin Methylprednisolone Sodium Succinate 125 mg 12/04/19 16:38 12/04/19 16:45 Solu-Medrol - IVPB 12/04/19 16:39 125 mg ONCE ONE Administration Medical Decision Making - Critical Care Time Total Critical Care Time (minutes): 40 Critical Care Statement: The care of this patient involved high complexity decision making to prevent further life threatening deterioration of the patient 's condition and/or to evaluate & treat vital organ system(s) failure or risk of failure. - Medical Decision Making 12/04/19 16:55 64F PMH COPD, ESRD (HD , , ; Last HD today), CHF BIBEMS from HD for lethargy while being dialyzed. B/L wheezes w/ poor air movement. Pt states she recently started meds for RLS DDX - likely COPD exacerbation; considering PNA, bronchitis, ACS. Considering CHF but less likely since pt presenting almost at the end of her HD session. - CBC, CMP, CARDIAC, TSH - EKG - CXR - BIPAP; targetting SaO2 low to mid 90s - Duonebs x3 Notified by lab pH 7.17 on pre BiPaP VBG likely respiratory acidosis, f/u CMP ABG obtained by respiratory, f/u EKG 1619 HR 76 NJ 162 QRS 110 QTc 542; Rhythm strip showing NSR, prolonged QT 12/04/19 17:20 RESP: increased air entry, coarse breath sounds, reduced wheezing s/p 3 duonebs and BiPaP ICU admit 12/04/19 18:26 d/w ICU resident 12/04/19 19:22 endorsed to BATTERY WRECKER OPERATOR ADMITTED ICU 12/04/19 19:39 RN has tried multiple times w/ bedpan to obtain urine; pt adamantly refuses straight cath. 12/04/19 20:06 pt removed bipap mask and is now eating a protein bar from her belongings, refusing to have mask replaced pt is more awake and conversant compared to presentation 12/04/19 20:51 Per BATTERY WRECKER OPERATOR: Pt desatturated on RA, placed back on bipap, refused ABG. Pt expressed understanding that she needs to wear the mask. Can downgrade to tele - change from ICU to tele ADMITTED TELE Discharge - Discharge Information Problems reviewed: Yes Clinical Impression/Diagnosis: COPD exacerbation - Follow up/Referral - Patient Discharge Instructions - Post Discharge Activity
[2019-12-04 17:06] LABS: VENOUS PH 7.17 (7.31-7.41)
--- NOTE | 2019-12-04 17:07 | PDOC ---
Attending Attestation - Resident Resident Name: Neftali Mathur - ED Attending Attestation I have performed the following: I have examined & evaluated the patient, The case was reviewed & discussed with the resident, I agree w/resident's findings & plan, Exceptions are as noted - HPI HPI: 12/04/19 17:49 Ms. Yu is a 64 yo F who presents to the ER from dialysis secondary to increased sleepiness The patient states that she took ropinirole for the first time 2 days ago She has noted increased fatigue she was noted to to be sleepy at dialysis Pt denies any traumatic injury - Physicial Exam PE: 12/04/19 17:06 GENERAL: The patient is in no acute distress, somnolent but arousable to voice. ENT: Ears normal, nares patent, oropharynx clear without exudates. Moist mucous membranes. NECK: Normal range of motion, supple LUNGS: Breath sounds equal, clear to auscultation bilaterally. (+) wheezes noher through out HEART:Regular rate and rhythm, normal S1 and S2 without murmur, rub or gallop. ABDOMEN: Soft, nontender, normoactive bowel sounds. EXTREMITIES: Normal range of motion, no edema. NEUROLOGICAL: Cranial nerves II through XII grossly intact. Normal speech. No focal neurological deficits. SKIN: Warm, Dry, normal turgor, no rashes or lesions noted. 12/04/19 17:53 - Critical Care Time Total Critical Care Time: 60 Critical Care Statement: The care of this patient involved high complexity decision making to prevent further life threatening deterioration of the patient 's condition and/or to evaluate & treat vital organ system(s) failure or risk of failure. - Medical Decision Making 12/04/19 17:27 Laboratory Tests 09/25/19 12/04/19 12/04/19 06:55 16:46 16:46 WBC 6.6 Hgb 9.2 L Hct 28.2 L Plt Count 142 PT with INR 12.10 INR 1.03 PTT (Actin FS) 41.1 H VBG pH 7.17 L* POC VBG pCO2 65.2 H POC VBG pO2 89.1 H 12/04/19 16:46 WBC 8.0 Hgb 9.3 L Hct 29.1 L Plt Count 185 D PT with INR INR PTT (Actin FS) VBG pH POC VBG pCO2 POC VBG pO2 12/04/19 17:40 EKG: Normal sinus rhythm, rate of 76 bpm, axis is normal, intervals are abnormal-QTC : 542 little M little S, T wave inversion in lead I, aVL 12/04/19 17:54 Pt abg pending Pt placed on BiPAP 12/04/19 17:55 Laboratory Tests 12/04/19 16:37 Sodium 133 L Potassium 3.6 BUN 49.2 H Creatinine 3.3 H Creatine Kinase 257 H Troponin I 0.11 H 12/04/19 17:56 Pt somnolent but arousable to verbal stimulation Laboratory Tests 06/15/18 06/04/19 09/13/19 18:10 20:27 14:00 Troponin I 0.02 0.04 0.07 H 09/13/19 09/14/19 12/04/19 15:55 05:27 16:37 Troponin I 0.07 H 0.09 H 0.11 H Trop is a bit higher than prior Consult Cardiology Consult Renal Pt removed Bipap considering downgrading but the patient again became somnolent BiPAP replaced admit to ICU for close pulm monitoring Clinical impression: Hypercarbic respiratory failure requiring BiPAP
[2019-12-04 17:12] LABS: INR 1.03 (0.83-1.09); PROTHROMBIN TIME (PATIENT) 12.1 SEC (9.7-13.0)
[2019-12-04 17:15] LABS: ACTIVATED PTT 41.1 SECONDS (25.2-36.5)
[2019-12-04 17:54] LABS: ALBUMIN 3.6 g/dl (3.4-5.0); BILIRUBIN,TOTAL 0.6 mg/dL (0.2-1); BLOOD UREA NITROGEN 49.2 mg/dL (7-18); CALCIUM 7.9 mg/dL (8.5-10.1); CREATININE 3.3 mg/dL (0.55-1.3); MAGNESIUM 2.2 mg/dL (1.8-2.4); POTASSIUM 3.6 mmol/L (3.5-5.1); TOT PROT 7.6 g/dl (6.4-8.2)
[2019-12-04 18:08] LABS: ARTERIAL BLD GAS O2 SATURATION 95.4 % (95-98); ARTERIAL BLOOD GAS BASE EXCESS -4.8 meq/l (-2-2); ARTERIAL BLOOD GAS PCO2 61.7 mmHg (35-45); ARTERIAL BLOOD GAS PO2 87.4 mmHg (80-100)
[2019-12-04 18:09] LABS: ALLENS TEST POSITIVE
--- NOTE | 2019-12-04 19:14 | CONSULT ---
Consultation: REQUESTING PROVIDER: Dr. Breen CONSULT REQUEST: We have been asked to medically evaluate this patient for airway monitoring. HISTORY OF PRESENT ILLNESS: 64 y/o F with PMHx COPD (Not on home O2), ESRD on HD via Right chest Permacath ([facility], Last HD Session today, Firearms Instructor: Dr. Moore, recently started HD during last visit), HFrEF (Echo 09/04), Restless leg syndrome (recently started on Ropinirole), Breast CA (s/p R Lumpectomy and Chemo), Endometrial Ca (s/p TAHBSO), HTN, PARVEZ (unclear if uses CPAP at home), PAD, HLD, DMII was BIBEMS for episodes of lethargy during HD today. During my interview, patient is A&Ox3 and easily arousable to verbal stimuli however remains lethargic, constantly falling asleep during questioning. Patient admits to taking one of her home meds to aid in sleeping however is unable to recall the name. Additionally mentions recently starting Ropinorole. REVIEW OF SYSTEMS: Unable to perform given mental status PHYSICAL EXAMINATION Vital Signs Temperature 97.5 F L 12/04/19 16:10 Pulse Rate 80 12/04/19 18:31 Respiratory Rate 14 12/04/19 18:31 Blood Pressure 146/76 12/04/19 18:31 O2 Sat by Pulse Oximetry (%) 94 L 12/04/19 18:31 GENERAL: Lethargic HEAD: NCAT EYES: PERRL, EOMI EARS, NOSE, THROAT: Moist mucous membranes. NECK: No JVD CHEST: Right Chest Permacath LUNGS: Rhonchi over the RLL, No wheezes, no crackles. HEART: Regular rate and rhythm, normal S1 and S2 without murmur ABDOMEN: Soft, nontender, not distended, + bowel sounds, no guarding EXTREMITIES: 1+ pitting edema NEUROLOGICAL: Cranial nerves II-XII intact. SKIN: Warm, dry Laboratory Last Values WBC 8.0 K/mm3 (4.0-10.0) 12/04/19 16:46 RBC 2.97 M/mm3 (3.60-5.2) L 12/04/19 16:46 Hgb 9.3 GM/dL (10.7-15.3) L 12/04/19 16:46 Hct 29.1 % (32.4-45.2) L 12/04/19 16:46 MCV 98.1 fl (80-96) H 12/04/19 16:46 MCH 31.4 pg (25.7-33.7) 12/04/19 16:46 MCHC 32.0 g/dl (32.0-36.0) 12/04/19 16:46 RDW 19.6 % (11.6-15.6) H 12/04/19 16:46 Plt Count 185 K/MM3 (134-434) D 12/04/19 16:46 MPV 9.9 fl (7.5-11.1) 12/04/19 16:46 Absolute Neuts (auto) 6.5 K/mm3 (1.5-8.0) 12/04/19 16:46 Neutrophils % 81.9 % (42.8-82.8) 12/04/19 16:46 Lymphocytes % 4.0 % (8-40) L D 12/04/19 16:46 Monocytes % 12.1 % (3.8-10.2) H 12/04/19 16:46 Eosinophils % 1.8 % (0-4.5) 12/04/19 16:46 Basophils % 0.2 % (0-2.0) 12/04/19 16:46 Nucleated RBC % 0 % (0-0) 12/04/19 16:46 PT with INR 12.10 SEC (9.7-13.0) 12/04/19 16:46 INR 1.03 (0.83-1.09) 12/04/19 16:46 PTT (Actin FS) 41.1 SECONDS (25.2-36.5) H 12/04/19 16:46 Anticoagulation Therapy No Result Required. 12/04/19 17:56 Puncture Site Left radial 12/04/19 17:56 ABG pH 7.20 (7.35-7.45) L 12/04/19 17:56 ABG pCO2 at Pt Temp 61.7 mmHg (35-45) H 12/04/19 17:56 ABG pO2 at Pt Temp 87.4 mmHg (80-100) 12/04/19 17:56 ABG HCO3 23.1 mmol/L (22-27) 12/04/19 17:56 ABG O2 Sat (Measured) 95.4 % (95-98) 12/04/19 17:56 ABG O2 Content 12.0 % vol 12/04/19 17:56 ABG Base Excess -4.8 meq/l (-2-2) L 12/04/19 17:56 Won Test Positive 12/04/19 17:56 VBG pH 7.17 (7.31-7.41) L* 12/04/19 16:46 POC VBG pCO2 65.2 mmHg (38-52) H 12/04/19 16:46 POC VBG pO2 89.1 mmHg (28-48) H 12/04/19 16:46 VBG HCO3 23.0 mmol/L (23-29) 12/04/19 16:46 VBG O2 Sat (Jaime) 95.0 % (70-80) H 12/04/19 16:46 VBG Base Excess -5.5 meq/l (-2-2) L 12/04/19 16:46 O2 Delivery Device No Result Required. 12/04/19 17:56 Oxygen Flow Rate No Result Required. 12/04/19 17:56 Vent Mode No Result Required. 12/04/19 17:56 Vent Rate No Result Required. 12/04/19 17:56 Mechanical Rate No Result Required. 12/04/19 17:56 Pressure Support Vent No Result Required. 12/04/19 17:56 Sodium 133 mmol/L (136-145) L 12/04/19 16:37 Potassium 3.6 mmol/L (3.5-5.1) 12/04/19 16:37 Chloride 99 mmol/L (98-107) 12/04/19 16:37 Carbon Dioxide 24 mmol/L (21-32) 12/04/19 16:37 Anion Gap 9 MMOL/L (8-16) 12/04/19 16:37 BUN 49.2 mg/dL (7-18) H 12/04/19 16:37 Creatinine 3.3 mg/dL (0.55-1.3) H 12/04/19 16:37 Est GFR (CKD-EPI)AfAm 16.28 12/04/19 16:37 Est GFR (CKD-EPI)NonAf 14.05 12/04/19 16:37 POC Glucometer 212 UNITS (80-120) 12/04/19 16:27 Random Glucose 211 mg/dL (74-106) H 12/04/19 16:37 Lactic Acid 1.8 mmol/L (0.4-2.0) 12/04/19 17:36 Calcium 7.9 mg/dL (8.5-10.1) L 12/04/19 16:37 Magnesium 2.2 mg/dL (1.8-2.4) 12/04/19 16:37 Total Bilirubin 0.6 mg/dL (0.2-1) 12/04/19 16:37 AST 35 U/L (15-37) 12/04/19 16:37 ALT 33 U/L (13-61) 12/04/19 16:37 Alkaline Phosphatase 301 U/L (45-117) H 12/04/19 16:37 Creatine Kinase 257 U/L (26-192) H 12/04/19 16:37 Creatine Kinase Index 4.8 % (0.0-5.0) 12/04/19 16:37 CK-MB (CK-2) 12.4 ng/mL (0.5-3.6) H 12/04/19 16:37 Troponin I 0.11 ng/ml (0.00-0.05) H 12/04/19 16:37 Total Protein 7.6 g/dl (6.4-8.2) 12/04/19 16:37 Albumin 3.6 g/dl (3.4-5.0) 12/04/19 16:37 TSH 2.88 uIU/ml (0.358-3.74) 12/04/19 16:37 Influenza A (Rapid) Negative (Negative) 12/04/19 18:05 Influenza B (Rapid) Negative (Negative) 12/04/19 18:05 Active Medications Albuterol Sulfate (Ventolin 0.083% Nebulizer Soln -) 1 amp NEB Q6H PRN PRN Reason: SHORT OF BREATH/WHEEZING Albuterol/Ipratropium (Duoneb -) 1 amp NEB RQID ALDO Budesonide/Formoterol Fumarate (Symbicort 160/4.5mcg -) 2 puff IH BID ALDO Chlorhexidine Gluconate (Hibiclens For Decolonization -) 1 applic TP HS ALDO Heparin Sodium (Porcine) (Heparin -) 5,000 unit SQ TID ALDO Ceftriaxone Sodium 1 gm/ (Dextrose) 100 mls @ 200 mls/hr IVPB DAILY ALDO; Protocol Insulin Aspart (Novolog Vial Sliding Scale -) 1 vial SQ ACHS ALDO; Protocol Methylprednisolone Sodium Succinate (Solu-Medrol -) 40 mg IVPUSH Q8H-IV ALDO Mupirocin (Bactroban Ointment (For Decolonization) -) 1 applic NS BID ALDO Stop: 12/09/19 21:59 Pantoprazole Sodium (Protonix Iv) 40 mg IVPUSH DAILY ALDO ASSESSMENT/PLAN: 64 y/o F with PMHx COPD (Not on home O2), ESRD on HD via Right chest Permacath ([facility] [place], Last HD Session today, Firearms Instructor: Dr. Moore, recently started HD during last visit), HFrEF (Echo 09/04), Restless leg syndrome (recently started on Ropinirole), Breast CA (s/p R Lumpectomy and Chemo), Endometrial Ca (s/p TAHBSO), HTN, PARVEZ (unclear if uses CPAP at home), PAD, HLD, DMII was BIBEMS for episodes of lethargy during HD today, admitted to ICU for further airway monitoring. #Neuro Hx of Restless leg syndrome (recently started on Ropinirole) ?Insomnia (on Xanax during prior admission) -Hold Home dose Xanax, Pramipexole #Cardio Elevated Troponin I Hx of HFrEF (Echo 09/04), HTN, PAD, HLD -EKG NSR, VR 76, QTc 542 -Resume PO Meds when no longer NPO -Cardio Consulted, Appreciate rec's #Pulm Acute Hypercapneic Respiratory Failure Hx of COPD (Not on home O2), PARVEZ (unclear if uses CPAP at home) -AHRF in the setting of likely COPD Exacerbation; CXR Negative, Influenza Negative, Afebrile Nonseptic appearing -Bipap (Ipap 12, Epap 6, RR 16, FiO2 30%), Check ABG 1 hour after starting Bipap to show improvement -IV Solumedrol 40mg Q8H -Bronchodilation via Ventolin, Duoneb, Symbicort -Ceftriaxone (Hold azithromycin in the setting of Prolonged QTc, Hold Doxycycline in the setting of NPO) -Supplemental O2 to maintain SpO2 88-92% -Pulmonary Consulted #GI -PPx via PPI #Renal Hx of ESRD on HD via Right chest Permacath ([facility], Last HD Session today, Firearms Instructor: Dr. Moore, recently started HD during last visit) -Nephrology consulted for HD #Endo Hx of DMII -ISS BGMs ACHS #Heme/Onc Hx of Breast CA (s/p R Lumpectomy and Chemo), Endometrial Ca (s/p TAHBSO), Anemia -Check Iron Studies (Most recently done in August 2019), B12, Folate, FOBT #FEN -No Standing fluids -Replete lytes PRN -NPO while on Bipap #PPx -DVT: Heparin -GI: PPI Dispo: We will continue to follow the patient. Thank you for this consultative opportunity. Visit type - Emergency Visit Emergency Visit: Yes ED Registration Date: 12/04/19 Care time: The patient presented to the Emergency Department on the above date and was hospitalized for further evaluation of their emergent condition. - New Patient This patient is new to me today: Yes Date on this admission: 12/10/19 - Critical Care Critical Care patient: Yes Total Critical Care Time (in minutes): 36 Critical Care Statement: The care of this patient involved high complexity decision making to prevent further life threatening deterioration of the patient's condition and/or to evaluate & treat vital organ system(s) failure or risk of failure. ATTENDING PHYSICIAN STATEMENT I saw and evaluated the patient. I reviewed the resident's note and discussed the case with the resident. I agree with the resident's findings and plan as documented. SUBJECTIVE: OBJECTIVE: ASSESSMENT AND PLAN:
--- NOTE | 2019-12-04 19:51 | HP ---
Admitting History and Physical - Primary Care Physician PCP: Anyi Mcgrath - Admission Chief Complaint: Lethargy History of Present Illness: This is a 64 y/o woman with a PMHx of ESRD (,,), CHF, COPD, Anemia, Systolic Cardiomyopathy, CAd, PAD, Uterine Ca (2006), R- Breast Ca. Who presents to the ED from the Dialysis center for lethargy. Patient reports since being started on mirapex she has been sleeping longer. She reports taking the last dose . Patient also reports increased SOB. Patient denies fever, chills, HADDAD, CP, palpitations, AP, N/V/D, constipation. Patient denies recent travel or sick contacts. ED course was noted for: (1) Chest Xray- no infiltrate or failure, cardiomegaly (2) ABG- 7.2/61.7/87.4/23.1/95.4 (3) Influenza Neg A+B History Source: Patient, Transfer Record Limitations to Obtaining History: Clinical Condition - Past Medical History Cardiovascular: Yes: CHF, HTN, Hyperlipdemia, Pulmonary Hypertension Pulmonary: Yes: Asthma, Sleep Apnea (on BIPAP at night) Gastrointestinal: Yes: GI Bleed (see HPI), Other (had EGD and colono 12/31, ) Renal/: Yes: Renal Failure, Renal Inusuff, Other (hyperkalemia) ...LMP: 11/17/07 Heme/Onc: Yes: Anemia Endocrine: Yes: Diabetes Mellitus (uncontrolled) - Smoking History Smoking history: Unknown if ever smoked Have you smoked in the past 12 months: Yes Aproximately how many cigarettes per day: 40 - Alcohol/Substance Use Hx Alcohol Use: No History of Substance Use: reports: None - Social History Usual Living Arrangement: Yes: Alone ADL: Independent History of Recent Travel: No Home Medications - Allergies Allergies/Adverse Reactions: Allergies Allergy/AdvReac Type Severity Reaction Status Date / Time No Known Allergies Allergy Verified 12/04/19 16:39 - Home Medications Home Medications: Ambulatory Orders Alprazolam 0.5 mg PO DAILY 12/04/19 Atorvastatin Ca [Lipitor] 20 mg PO HS 12/04/19 Cephalexin [Keflex] 500 mg PO TID 12/04/19 Folic Acid 1 mg PO DAILY 12/04/19 Furosemide [Lasix -] 40 mg PO DAILY 12/04/19 Isosorbide Mononitrate [Isosorbide Mononitrate ER] 30 mg PO BID 12/04/19 Metoprolol Succinate [Toprol Xl] 25 mg PO DAILY 12/04/19 Metoprolol Tartrate [Lopressor -] 50 mg PO BID 12/04/19 Pramipexole Dihydrochloride [Mirapex -] 0.25 mg PO HS 12/04/19 hydrALAZINE HCL [Apresoline -] 50 mg PO DAILY 12/04/19 Family Medical History Family History: Unable to Obtain Review of Systems Unable to obtain ROS, reason: Clinical Condition Physical Examination Vital Signs: Vital Signs Temperature 97.5 F L 12/04/19 16:10 Pulse Rate 80 12/04/19 18:31 Respiratory Rate 14 12/04/19 18:31 Blood Pressure 146/76 12/04/19 18:31 O2 Sat by Pulse Oximetry (%) 94 L 12/04/19 18:31 Constitutional: Yes: Mild Distress, Obese Eyes: Yes: WNL, Conjunctiva Clear, EOM Intact, PERRL HENT: Yes: WNL, Atraumatic, Normocephalic Neck: Yes: WNL, Supple, Trachea Midline Cardiovascular: Yes: Regular Rate and Rhythm, S1, S2 Respiratory: Yes: Diminished, Rhonchi Gastrointestinal: Yes: WNL, Normal Bowel Sounds, Soft ...Rectal Exam: Yes: Deferred Breast(s): Yes: WNL Musculoskeletal: Yes: WNL Extremities: Yes: WNL Edema: Yes Edema: LLE: 2+, RLE: 2+ Peripheral Pulses WNL: Yes Integumentary: Yes: Venous Stasis Changes Neurological: Yes: Alert, Oriented, Cran Nerves II-XII Intact ...Motor Strength: WNL Psychiatric: Yes: WNL, Alert, Oriented Labs: CBC, BMP 12/04/19 16:46 12/04/19 16:37 Laboratory Results - last 24 hr 12/04/19 12/04/19 12/04/19 16:27 16:37 16:46 WBC RBC Hgb Hct MCV MCH MCHC RDW Plt Count MPV Absolute Neuts (auto) Neutrophils % Lymphocytes % Monocytes % Eosinophils % Basophils % Nucleated RBC % PT with INR 12.10 INR 1.03 PTT (Actin FS) 41.1 H Anticoagulation Therapy Puncture Site ABG pH ABG pCO2 at Pt Temp ABG pO2 at Pt Temp ABG HCO3 ABG O2 Sat (Measured) ABG O2 Content ABG Base Excess Won Test VBG pH POC VBG pCO2 POC VBG pO2 VBG HCO3 VBG O2 Sat (Jaime) VBG Base Excess O2 Delivery Device Oxygen Flow Rate Vent Mode Vent Rate Mechanical Rate Pressure Support Vent Sodium 133 L Potassium 3.6 Chloride 99 Carbon Dioxide 24 Anion Gap 9 BUN 49.2 H Creatinine 3.3 H Est GFR (CKD-EPI)AfAm 16.28 Est GFR (CKD-EPI)NonAf 14.05 POC Glucometer 212 Random Glucose 211 H Lactic Acid Calcium 7.9 L Magnesium 2.2 Total Bilirubin 0.6 AST 35 ALT 33 Alkaline Phosphatase 301 H Creatine Kinase 257 H Creatine Kinase Index 4.8 CK-MB (CK-2) 12.4 H Troponin I 0.11 H Total Protein 7.6 Albumin 3.6 TSH 2.88 Influenza A (Rapid) Influenza B (Rapid) 12/04/19 12/04/19 12/04/19 16:46 16:46 17:36 WBC 8.0 RBC 2.97 L Hgb 9.3 L Hct 29.1 L MCV 98.1 H MCH 31.4 MCHC 32.0 RDW 19.6 H Plt Count 185 D MPV 9.9 Absolute Neuts (auto) 6.5 Neutrophils % 81.9 Lymphocytes % 4.0 L D Monocytes % 12.1 H Eosinophils % 1.8 Basophils % 0.2 Nucleated RBC % 0 PT with INR INR PTT (Actin FS) Anticoagulation Therapy Puncture Site ABG pH ABG pCO2 at Pt Temp ABG pO2 at Pt Temp ABG HCO3 ABG O2 Sat (Measured) ABG O2 Content ABG Base Excess Won Test VBG pH 7.17 L* POC VBG pCO2 65.2 H POC VBG pO2 89.1 H VBG HCO3 23.0 VBG O2 Sat (Jaime) 95.0 H VBG Base Excess -5.5 L O2 Delivery Device Oxygen Flow Rate Vent Mode Vent Rate Mechanical Rate Pressure Support Vent Sodium Potassium Chloride Carbon Dioxide Anion Gap BUN Creatinine Est GFR (CKD-EPI)AfAm Est GFR (CKD-EPI)NonAf POC Glucometer Random Glucose Lactic Acid 1.8 Calcium Magnesium Total Bilirubin AST ALT Alkaline Phosphatase Creatine Kinase Creatine Kinase Index CK-MB (CK-2) Troponin I Total Protein Albumin TSH Influenza A (Rapid) Influenza B (Rapid) 12/04/19 12/04/19 17:56 18:05 WBC RBC Hgb Hct MCV MCH MCHC RDW Plt Count MPV Absolute Neuts (auto) Neutrophils % Lymphocytes % Monocytes % Eosinophils % Basophils % Nucleated RBC % PT with INR INR PTT (Actin FS) Anticoagulation Therapy No Result Required. Puncture Site Left radial ABG pH 7.20 L ABG pCO2 at Pt Temp 61.7 H ABG pO2 at Pt Temp 87.4 ABG HCO3 23.1 ABG O2 Sat (Measured) 95.4 ABG O2 Content 12.0 ABG Base Excess -4.8 L Won Test Positive VBG pH POC VBG pCO2 POC VBG pO2 VBG HCO3 VBG O2 Sat (Jaime) VBG Base Excess O2 Delivery Device No Result Required. Oxygen Flow Rate No Result Required. Vent Mode No Result Required. Vent Rate No Result Required. Mechanical Rate No Result Required. Pressure Support Vent No Result Required. Sodium Potassium Chloride Carbon Dioxide Anion Gap BUN Creatinine Est GFR (CKD-EPI)AfAm Est GFR (CKD-EPI)NonAf POC Glucometer Random Glucose Lactic Acid Calcium Magnesium Total Bilirubin AST ALT Alkaline Phosphatase Creatine Kinase Creatine Kinase Index CK-MB (CK-2) Troponin I Total Protein Albumin TSH Influenza A (Rapid) Negative Influenza B (Rapid) Negative Current Medications Generic Name Dose Route Start Last Admin Trade Name Freq PRN Reason Stop Dose Admin Albuterol Sulfate 1 amp 12/04/19 20:05 Ventolin 0.083% Nebulizer Soln - NEB Q6H PRN SHORT OF BREATH/WHEEZING Albuterol/Ipratropium 1 amp 12/05/19 08:00 Duoneb - NEB RQID ALDO Atorvastatin Calcium 20 mg 12/04/19 22:00 Lipitor - PO HS ALDO Budesonide/Formoterol Fumarate 2 puff 12/04/19 22:00 Symbicort 160/4.5mcg - IH BID ALDO Chlorhexidine Gluconate 1 applic 12/04/19 22:00 Hibiclens For Decolonization - TP HS ALDO Folic Acid 1 mg 12/05/19 10:00 Folic Acid - PO DAILY ALDO Furosemide 40 mg 12/05/19 10:00 Lasix - PO DAILY [facility] Heparin Sodium (Porcine) 5,000 unit 12/04/19 22:00 Heparin - SQ TID ALDO Hydralazine HCl 50 mg 12/05/19 10:00 Apresoline - PO DAILY ALDO Ceftriaxone Sodium 1 gm/ 50 mls @ 100 mls/hr 12/04/19 20:15 Dextrose IVPB DAILY [facility] Protocol Insulin Aspart 1 vial 12/04/19 22:00 Novolog Vial Sliding Scale - SQ ACHS ALDO Protocol Isosorbide Mononitrate 30 mg 12/04/19 22:00 Imdur - PO BID ALDO Methylprednisolone Sodium Succinate 40 mg 12/05/19 02:00 Solu-Medrol - IVPUSH Q8H-IV ALDO Mupirocin 1 applic 12/04/19 22:00 Bactroban Ointment (For Decolonization) - NS 12/09/19 21:59 BID ALDO Pantoprazole Sodium 40 mg 12/04/19 20:15 Protonix Iv IVPUSH DAILY ALDO Intake & Output 12/01/19 12/02/19 12/03/19 12/04/19 23:59 23:59 23:59 23:59 Weight 92 kg Imaging - Results Chest X-ray: Image Reviewed EKG: Image Reviewed Problem List - Problems (1) Acute exacerbation of chronic obstructive pulmonary disease (COPD) Code(s): J44.1 - CHRONIC OBSTRUCTIVE PULMONARY DISEASE W (ACUTE) EXACERBATION (2) CAD (coronary artery disease) Code(s): I25.10 - ATHSCL HEART DISEASE OF [place] CORONARY ARTERY W/O ANG PCTRS Qualifiers: Coronary Disease-Associated Artery/Lesion type: [place] coronary artery Associated angina: with other forms of angina pectoris (3) CHF (congestive heart failure) Code(s): I50.9 - HEART FAILURE, UNSPECIFIED (4) CKD (chronic kidney disease) Code(s): N18.9 - CHRONIC KIDNEY DISEASE, UNSPECIFIED Qualifiers: Chronic kidney disease stage: unspecified stage Qualified Code(s): N18.9 - Chronic kidney disease, unspecified (5) HTN (hypertension) Code(s): I10 - ESSENTIAL (PRIMARY) HYPERTENSION (6) PARVEZ on CPAP Code(s): G47.33 - OBSTRUCTIVE SLEEP APNEA (ADULT) (PEDIATRIC) (7) Restless leg syndrome Code(s): G25.81 - RESTLESS LEGS SYNDROME Assessment/Plan This is a 64 y/o woman with a PMHx of ESRD (T,,Sa), CHF, COPD, Anemia, Systolic Cardiomyopathy, CAD, PAD, Uterine Ca (2006), R- Breast Ca. Admitted to ICU for Respiratory Failure with Hypoxia and Hypercapnia, COPD Exacerbation, ESRD for further evaluation of their emergent condition. Came down to reassess patient, she is now more somnolent. Patient refused ABG. Spo2 RA- 84-81%. Patient placed back on Bipap Plan: # Respiratory Failure with Hypoxia and Hypercapnia Likely due to non-compliance vs medication Chest Xray image reviewed, report- no acute pathology Continue Bipap ABG- titrate settings Pulm Consult Continue Solumederol w/taper Duonebs Monitor vitals Hold all sedating med If no improvement will require intubation # COPD Exacerbation See above # ESRD HD- ,, Nephrology Consult- HD management # Troponinemia Likely secondary to ischemic demand Serial enzymes EKG- reviewed Cardiology Consult Echo 08/2019- lv-nl, lvsf-mildly reduced, EF 45%, ra-mod dilated, trace-mild mr , mod-tr, severe- pulm HTN, mild-pvr Continue cardiac monitoring # CAD Continue Lipitor, Lasix, Imdur Will need to verify BB in am # Restless Leg Syndrome Stable Elevate extremities Tylenol prn Hold Mirapex FEN Replete lytes prn NPO except meds DVT ppx OOB SCDs Heparin SQ Dispo: Requires Inpatient Care Visit type - Emergency Visit Emergency Visit: Yes ED Registration Date: 12/04/19 Care time: The patient presented to the Emergency Department on the above date and was hospitalized for further evaluation of their emergent condition. - New Patient This patient is new to me today: Yes Date on this admission: 12/04/19 - Critical Care Critical Care patient: Yes Total Critical Care Time (in minutes): 60 Critical Care Statement: The care of this patient involved high complexity decision making to prevent further life threatening deterioration of the patient 's condition and/or to evaluate & treat vital organ system(s) failure or risk of failure.
[2019-12-04] MEDS ORDERED: ALBUTEROL SO4 0.083% IH SOL 2.5 MG/3 ML VIAL.NEB. NEB PRN (20:05)
[2019-12-04] MEDS ORDERED: ATORVASTATIN CA 20 MG TABLET (FP) PO SCH (22:00)
[2019-12-04] MEDS ORDERED: CHLORHEXIDINE GLUCONATE 4% CLEANSER FOR DECOLONIZATION TP SCH (22:00)
[2019-12-04] MEDS ORDERED: CEFTRIAXONE 1 GM/50 ML BAG ONE (22:14)
[2019-12-04] MEDS ORDERED: PANTOPRAZOLE SODIUM 40 MG VIAL ONE (22:14)
[2019-12-04] MEDS: PANTOPRAZOLE SODIUM 40 MG VIAL IVPUSH SCH (22:16)
[2019-12-04] MEDS: CEFTRIAXONE 1 GM in DEXTROSE 5%-WATER - 50 ML IVPB SCH (22:16)
[2019-12-04 22:57] LABS: ARTERIAL BLOOD GAS PCO2 48.5 mmHg (35-45); ARTERIAL BLOOD GAS PO2 73.7 mmHg (80-100); ARTERIAL BLOOD GAS pH 7.26 (7.35-7.45)
[2019-12-04 22:58] LABS: ALLENS TEST POSITIVE; ARTERIAL BLD GAS O2 SATURATION 93.6 % (95-98); ARTERIAL BLOOD GAS BASE EXCESS -5.3 meq/l (-2-2)
[2019-12-04] MEDS: HEPARIN NA (PORCINE) 5,000 UNITS/ML 1ML VIAL SQ SCH (23:02)
[2019-12-04] MEDS: BUDESONIDE/FORMETEROL FUMARATE 160/4.5 mcg INHALER IH SCH (23:02)
[2019-12-04] MEDS: MUPIROCIN 2% TOPICAL OINTMENT FOR DECOLONIZATION NS SCH (23:06)
[2019-12-04] MEDS: INSULIN SLIDING SCALE (NOVOLOG) 1 VIAL SQ SCH (23:06)
[2019-12-04 23:53] LABS: N-TERMINAL BNP 43135.1 pg/ml (5-125)
[2019-12-05] MEDS: methylPREDNISolone NA SUCC 40 MG/1 ML VIAL IVPUSH SCH ×2 (01:46→09:01)
--- NOTE | 2019-12-05 03:02 | PN ---
Progress Note (short form) - Note Progress Note: I was informed by nursing staff the patient was refusing bipap, o2 therapy via nasal cannula, or any medications including insulin sliding scale. On assessment, patient repeatedly trying to stand from seated position, very unsteady on her feet. Desats to 82%. Patient somnolent, falling asleep while talking to me, while still trying to get out of bed with knees buckling w/ standing. Offered soft restraints, nursing director present in unit able to help patient back to bed & restart bipap. Currently saturating 94% on bipap. Continuing to monitor.
[2019-12-05] MEDS: HEPARIN NA (PORCINE) 5,000 UNITS/ML 1ML VIAL SQ SCH (06:26)
[2019-12-05] MEDS: INSULIN SLIDING SCALE (NOVOLOG) 1 VIAL SQ SCH ×2 (07:21→10:29)
[2019-12-05 07:41] LABS: BASO % 0.2 % (0-2.0); HEMATOCRIT 28.4 % (32.4-45.2); HEMOGLOBIN 9.2 GM/dL (10.7-15.3); LYMPH % 2.7 % (8-40); MCH 31.2 pg (25.7-33.7); MCHC 32.4 g/dl (32.0-36.0); MEAN CELL VOLUME 96.2 fl (80-96); MEAN PLT VOLUME 9.4 fl (7.5-11.1); MONO % 3.1 % (3.8-10.2); PLATELET COUNT 168 K/MM3 (134-434); RBC 2.95 M/mm3 (3.60-5.2); RDW 19.4 % (11.6-15.6); RETICULOCYTES 1.78 % (0.5-1.5); WHITE BLOOD COUNT 6.5 K/mm3 (4.0-10.0)
[2019-12-05] MEDS ORDERED: ALBUTEROL SO4 2.5/IPRATROPIUM 0.5 INH SOL 3 ML VIAL.NEB. NEB SCH ×2 (08:00→12:00)
[2019-12-05] MEDS ORDERED: DEXTROSE 5%-WATER - 50 ML IVPB ONE (08:29)
[2019-12-05] MEDS ORDERED: cefTRIAXone SODIUM 1 GM VIAL ONE (08:29)
[2019-12-05 08:39] LABS: BLOOD UREA NITROGEN 63.5 mg/dL (7-18); CALCIUM 8.1 mg/dL (8.5-10.1); MAGNESIUM 2.2 mg/dL (1.8-2.4); PHOSPHOROUS 6.6 mg/dL (2.5-4.9); POTASSIUM 4.2 mmol/L (3.5-5.1)
[2019-12-05] MEDS ORDERED: PT OWN MED DRAWER 7, Y5N ONE (08:49)
[2019-12-05] MEDS: PANTOPRAZOLE SODIUM 40 MG VIAL IVPUSH SCH (09:01)
[2019-12-05] MEDS: CEFTRIAXONE 1 GM in DEXTROSE 5%-WATER - 50 ML IVPB SCH (09:01)
[2019-12-05] MEDS: MUPIROCIN 2% TOPICAL OINTMENT FOR DECOLONIZATION NS SCH ×2 (09:02→09:22)
[2019-12-05] MEDS: BUDESONIDE/FORMETEROL FUMARATE 160/4.5 mcg INHALER IH SCH (09:04)
[2019-12-05] MEDS ORDERED: FUROSEMIDE 40 MG TABLET (FP) PO SCH (10:00)
[2019-12-05] MEDS ORDERED: hydrALAZINE HCL 50 MG TABLET (FP) PO SCH (10:00)
[2019-12-05] MEDS ORDERED: FOLIC ACID 1 MG TABLET (FP) PO SCH (10:00)
[2019-12-05] MEDS ORDERED: metoPROLOL SUCCINATE 25 MG TAB.SR.24H (FP) PO SCH (10:00)
[2019-12-05] MEDS ORDERED: ISOSORBIDE MONONITRATE 30 MG TAB.SR.24H (FP) PO SCH ×2 (10:00→17:00)
[2019-12-05] MEDS ORDERED: MUPIROCIN 2% TOPICAL OINTMENT FOR DECOLONIZATION NS SCH (10:00)
--- NOTE | 2019-12-05 10:45 | CON.CARD ---
Cardiology Consult (text) - Consultation Consultation Note: Chief Complaint: ams History of Present Illness: 64F sent from HD with lethargy. Pt c/o leg weakness. No cp sob palps dizzy loc pnd orthopnea le edema. PMH: DM- HTN HPL-- nonisch CMP/CHF-- breast cancer-- CKD hyperkalemia - Past Medical History Cardio/Vascular: Yes: CHF, HTN, Hyperlipdemia, Pulmonary Hypertension Pulmonary: Yes: Asthma, Sleep Apnea (on BIPAP at night) Gastrointestinal: Yes: GI Bleed (see HPI), Other (had EGD and colono 12/31, ) Renal/: Yes: Renal Failure, Renal Inusuff, Other (hyperkalemia) ...LMP: 11/17/07 Endocrine: Yes: Diabetes Mellitus (uncontrolled) - Alcohol/Substance Use Hx Alcohol Use: No - Smoking History Smoking history: no - Social History ADL: Independent History of Recent Travel: No Home Medications - Allergies Allergies/Adverse Reactions: Allergies Allergy/AdvReac Type Severity Reaction Status Date / Time No Known Allergies Allergy Verified 12/04/19 16:39 Home Medications Medication Instructions Recorded Alprazolam 0.5 mg PO DAILY 12/04/19 Atorvastatin Ca [Lipitor] 20 mg PO HS 12/04/19 Cephalexin [Keflex] 500 mg PO TID 12/04/19 Folic Acid 1 mg PO DAILY 12/04/19 Furosemide [Lasix -] 40 mg PO DAILY 12/04/19 Isosorbide Mononitrate [Isosorbide 30 mg PO BID 12/04/19 Mononitrate ER] Metoprolol Succinate [Toprol Xl] 25 mg PO DAILY 12/04/19 Metoprolol Tartrate [Lopressor -] 50 mg PO BID 12/04/19 Pramipexole Dihydrochloride 0.25 mg PO HS 12/04/19 [Mirapex -] hydrALAZINE HCL [Apresoline -] 50 mg PO DAILY 12/04/19 Review of Systems - Review of Systems Constitutional: denies: Chills, Fever Eyes: denies: Eye Pain HENT: denies: Nasal Congestion Neck: denies: Stiffness Cardiovascular: denies: Palpitations Respiratory: denies: Orthopnea, PND Gastrointestinal: denies: Diarrhea, Rectal Bleeding Genitourinary: denies: Burning, Hematuria Musculoskeletal: denies: Muscle Pain Integumentary: denies: Rash Neurological: denies: Numbness, Seizure, Syncope Endocrine: denies: Excessive Sweating Hematology/Lymphatic: denies: Excessive Bleeding Vital Signs Period Temp Pulse Resp BP Sys/Padron Pulse Ox Last 24 Hr 97.5 F-98.2 F 74-89 14-22 110-197/52-132 86-98 Constitutional: Yes: Well Nourished, No Distress Eyes: No: Sclera Icterus HENT: No: Nasal Congestion Neck: No: Decreased ROM Respiratory: Yes: CTA Bilaterally. No: Accessory Muscle Use, Rales, Wheezes Gastrointestinal: Yes: Normal Bowel Sounds. No: Distention, Hepatomegaly, Palpable Mass, Tenderness Cardiovascular: Yes: Regular Rate and Rhythm JVD: No Carotid Bruit: No PMI: Non-Displaced Heart Sounds: Yes: S1, S2. No: Gallop Murmur: No: Systolic Murmur, Diastolic Murmur Musculoskeletal: Yes: Other (No kyphosis) Extremities: No: Cold, Cyanosis Edema: No Peripheral Pulses: 2+ Left Carotid, 2+ Right Carotid, 2+ Left Doralis Pedis, 2+ Right Dorsalis Pedis Integumentary: No: Jaundice Neurological: Yes: Alert, Oriented (x3) Psychiatric: No: Agitated Laboratory Last Values WBC 6.5 K/mm3 (4.0-10.0) 12/05/19 06:40 RBC 2.95 M/mm3 (3.60-5.2) L 12/05/19 06:40 Hgb 9.2 GM/dL (10.7-15.3) L 12/05/19 06:40 Hct 28.4 % (32.4-45.2) L 12/05/19 06:40 MCV 96.2 fl (80-96) H 12/05/19 06:40 MCH 31.2 pg (25.7-33.7) 12/05/19 06:40 MCHC 32.4 g/dl (32.0-36.0) 12/05/19 06:40 RDW 19.4 % (11.6-15.6) H 12/05/19 06:40 Plt Count 168 K/MM3 (134-434) 12/05/19 06:40 MPV 9.4 fl (7.5-11.1) 12/05/19 06:40 Absolute Neuts (auto) 6.1 K/mm3 (1.5-8.0) 12/05/19 06:40 Neutrophils % 94.0 % (42.8-82.8) H 12/05/19 06:40 Lymphocytes % 2.7 % (8-40) L D 12/05/19 06:40 Monocytes % 3.1 % (3.8-10.2) L 12/05/19 06:40 Eosinophils % 0.0 % (0-4.5) D 12/05/19 06:40 Basophils % 0.2 % (0-2.0) 12/05/19 06:40 Nucleated RBC % 0 % (0-0) 12/05/19 06:40 Retic Count 1.78 % (0.5-1.5) H D 12/05/19 06:40 PT with INR 12.10 SEC (9.7-13.0) 12/04/19 16:46 INR 1.03 (0.83-1.09) 12/04/19 16:46 PTT (Actin FS) 41.1 SECONDS (25.2-36.5) H 12/04/19 16:46 Anticoagulation Therapy No Result Required. 12/04/19 22:45 Puncture Site Left radial 12/04/19 22:45 Patient Temperature Cancelled 12/04/19 22:00 ABG pH 7.26 (7.35-7.45) L 12/04/19 22:45 ABG pCO2 at Pt Temp 48.5 mmHg (35-45) H 12/04/19 22:45 ABG pO2 at Pt Temp 73.7 mmHg (80-100) L 12/04/19 22:45 ABG HCO3 21.1 mmol/L (22-27) L 12/04/19 22:45 ABG O2 Sat (Measured) 93.6 % (95-98) L 12/04/19 22:45 ABG O2 Content 11.4 % vol 12/04/19 22:45 ABG Base Excess -5.3 meq/l (-2-2) L 12/04/19 22:45 Won Test Positive 12/04/19 22:45 VBG pH 7.17 (7.31-7.41) L* 12/04/19 16:46 POC VBG pCO2 65.2 mmHg (38-52) H 12/04/19 16:46 POC VBG pO2 89.1 mmHg (28-48) H 12/04/19 16:46 VBG HCO3 23.0 mmol/L (23-29) 12/04/19 16:46 VBG O2 Sat (Jaime) 95.0 % (70-80) H 12/04/19 16:46 VBG Base Excess -5.5 meq/l (-2-2) L 12/04/19 16:46 O2 Delivery Device Bipap 12/04/19 22:45 Oxygen Flow Rate 30% 12/04/19 22:45 Vent Mode S/t 12/04/19 22:45 Vent Rate 16 12/04/19 22:45 Mechanical Rate No Result Required. 12/04/19 22:45 PEEP Cancelled 12/04/19 22:00 Pressure Support Vent 14/4 12/04/19 22:45 Sodium 133 mmol/L (136-145) L 12/05/19 06:40 Potassium 4.2 mmol/L (3.5-5.1) 12/05/19 06:40 Chloride 100 mmol/L (98-107) 12/05/19 06:40 Carbon Dioxide 23 mmol/L (21-32) 12/05/19 06:40 Anion Gap 10 MMOL/L (8-16) 12/05/19 06:40 BUN 63.5 mg/dL (7-18) H 12/05/19 06:40 Creatinine 4.0 mg/dL (0.55-1.3) H 12/05/19 06:40 Est GFR (CKD-EPI)AfAm 12.90 12/05/19 06:40 Est GFR (CKD-EPI)NonAf 11.13 12/05/19 06:40 POC Glucometer 225 UNITS (80-120) 12/05/19 10:28 Random Glucose 294 mg/dL (74-106) H 12/05/19 06:40 Lactic Acid 1.8 mmol/L (0.4-2.0) 12/04/19 17:36 Calcium 8.1 mg/dL (8.5-10.1) L 12/05/19 06:40 Phosphorus 6.6 mg/dL (2.5-4.9) H 12/05/19 06:40 Magnesium 2.2 mg/dL (1.8-2.4) 12/05/19 06:40 Iron 41 ug/dL (50-175) L 12/05/19 06:40 TIBC 222 ug/dL (250-450) L 12/05/19 06:40 Iron Saturation 18 % (17.5-39) 12/05/19 06:40 Unsaturated IBC 181 ug/dL (200-275) L 12/05/19 06:40 Ferritin 818.1 ng/ml (8-388) H 12/05/19 06:40 Total Bilirubin 0.6 mg/dL (0.2-1) 12/04/19 16:37 AST 35 U/L (15-37) 12/04/19 16:37 ALT 33 U/L (13-61) 12/04/19 16:37 Alkaline Phosphatase 301 U/L (45-117) H 12/04/19 16:37 Creatine Kinase 235 U/L (26-192) H 12/05/19 06:40 Creatine Kinase Index 4.2 % (0.0-5.0) 12/05/19 06:40 CK-MB (CK-2) 9.9 ng/mL (0.5-3.6) H 12/05/19 06:40 Troponin I 0.15 ng/ml (0.00-0.05) H 12/05/19 06:40 B-Natriuretic Peptide 99104.1 pg/ml (5-125) H 12/04/19 16:37 Total Protein 7.6 g/dl (6.4-8.2) 12/04/19 16:37 Albumin 3.6 g/dl (3.4-5.0) 12/04/19 16:37 Vitamin B12 808 pg/ml (193-986) 12/05/19 06:40 Serum Folate 15 ng/mL (3.1-17.5) 12/05/19 06:40 TSH 2.88 uIU/ml (0.358-3.74) 12/04/19 16:37 Influenza A (Rapid) Negative (Negative) 12/04/19 18:05 Influenza B (Rapid) Negative (Negative) 12/04/19 18:05 Echo 08/03: mod LVE, mod decr EF (global). nl RV. mild-mod MR, mod TR. RVSP 45. LHC 06/29: nl EDP; EF 40% (global); 50-60% OM1 (normal FFR); mild dz others MIBI 06/29 (pers): no STs; moder, partly rev defect AW c/w ischemia; mild LVE, mild-mod global LV hypo (40% EF); MILD TID MIBI 08/27 (pers): no ST change; TDS perfusion b/c of GI artifact and gating artifact; mild LV dilation and mild decr EFvisually (no TID) CXR: no congestion echo 05/2018 LV mildly dilated, borderline reduced LV function, grade II diastolic dysfunction, elevated filling pressures, LA mildly dilated, mild MAC, mild MR, mod TR, PASP at least 59 mmHg, no effusion EKG: sinus, nl intervals, no ischemic changes echo 08/2019 mild global hypokinesis EF 45%, RV nl, RA mod dilated, tr-mild MR, mod TR, RVSP at least 55 mmHg, severe pulm HTN tele: sr ASSESSMENT/PLAN 63 yo smoker with h/o systolic cardiomyopathy, non-obstructive cad, HTN, HL, pHTN, PAD, mod PARVEZ on cpap, CKD (cr 1.8 - 2.2), DM, h/o GIB s/p cauterization of avm's here with ams. ams: -possible med related, improving today elevated trop: - borderline elevation with flat trend, similar to prior baseline values, not c/ w acs - echo mildly reduced LV function chronic systolic CHF: -borderline reduced LV function 2017, on lasix at home -hd per renal for vol management -not on EVELINA/ARB due to recurrent severe hyperkalemia -cont bb -appears euvolemic Chronic ischemic heart disease: - nonobstructive OM dz inc FFR negative, no history of angina -continue statin - no asa - hx anemia Essential hypertension: at goal -cont hydralazine, beta bethel. titrate up hydralazine prn. Obstructive sleep apnea -USES CPAP AT HOME and intermittently here. breast ca -manage per heme/onc PAD: - known h/o obstructive RLE disease, claudication--deferred DR[employer] previously due to risks of contrast nephropathy
--- NOTE | 2019-12-05 10:51 | PN ---
Teaching Attending Note Name of Resident: Luisa Medeiros ATTENDING PHYSICIAN STATEMENT I saw and evaluated the patient. I reviewed the resident's note and discussed the case with the resident. I agree with the resident's findings and plan as documented. SUBJECTIVE: Pt seen and examined in the ICU. Mental status at baseline. Denies shortness of breath, cough or wheezing. Wants to go home. OBJECTIVE: Vital Signs Period Temp Pulse Resp BP Sys/Padron Pulse Ox Last 24 Hr 97.5 F-98.2 F 74-89 14-22 110-197/52-132 86-98 Intake & Output 12/02/19 12/03/19 12/04/19 12/05/19 23:59 23:59 23:59 23:59 Output Total 50 Balance -50 Weight 92 kg Gen: NAD at rest Heart: RRR Lung: decreased breath sounds at the bases Abd: soft, nontender Ext: distal edema CBC, BMP 12/05/19 06:40 12/05/19 06:40 Troponin, BNP 12/04/19 12/05/19 16:37 06:40 Troponin I 0.11 H 0.15 H B-Natriuretic Peptide 71550.1 H Active Medications Albuterol Sulfate (Ventolin 0.083% Nebulizer Soln -) 1 amp NEB Q6H PRN PRN Reason: SHORT OF BREATH/WHEEZING Albuterol/Ipratropium (Duoneb -) 1 amp NEB RQID [facility] Last Admin: 12/05/19 08:40 Dose: Not Given Atorvastatin Calcium (Lipitor -) 20 mg PO [facility] Last Admin: 12/04/19 23:02 Dose: Not Given Budesonide/Formoterol Fumarate (Symbicort 160/4.5mcg -) 2 puff IH BID [facility] Last Admin: 12/05/19 09:04 Dose: Not Given Chlorhexidine Gluconate (Hibiclens For Decolonization -) 1 applic TP [facility] Folic Acid (Folic Acid -) 1 mg PO DAILY [facility] Last Admin: 12/05/19 09:02 Dose: 1 mg Furosemide (Lasix -) 40 mg PO DAILY [facility] Last Admin: 12/05/19 09:02 Dose: 40 mg Heparin Sodium (Porcine) (Heparin -) 5,000 unit SQ TID [facility] Last Admin: 12/05/19 06:26 Dose: Not Given Hydralazine HCl (Apresoline -) 50 mg PO DAILY [facility] Last Admin: 12/05/19 09:02 Dose: 50 mg Ceftriaxone Sodium 1 gm/ (Dextrose) 50 mls @ 100 mls/hr IVPB DAILY [facility]; Protocol Last Admin: 12/05/19 09:01 Dose: 100 mls/hr Insulin Aspart (Novolog Vial Sliding Scale -) 1 vial SQ ACHS [facility]; Protocol Last Admin: 12/05/19 10:29 Dose: Not Given Isosorbide Mononitrate (Imdur -) 30 mg PO BIDISMO [facility] Last Admin: 12/05/19 09:02 Dose: 30 mg Metoprolol Succinate (Toprol Xl -) 25 mg PO DAILY [facility] Last Admin: 12/05/19 10:23 Dose: 25 mg Mupirocin (Bactroban Ointment (For Decolonization) -) 1 applic NS BID [facility] Stop: 12/09/19 21:59 Last Admin: 12/05/19 09:22 Dose: 1 applic Pantoprazole Sodium (Protonix Iv) 40 mg IVPUSH DAILY [facility] Last Admin: 12/05/19 09:01 Dose: 40 mg ASSESSMENT AND PLAN: Acute Hypercapneic Respiratory Failure improving likely from medication effect LV Systolic Dysfunction ESRD on HD CAD +Troponins likely Demand Ischemia HTN COPD Obstructive Sleep Apnea Pulmonary HTN HTN DM Hyperlipidemia Breast Ca PAD - hold pregabalin, can resume at 25mg when stable - HD per renal - BP control - can d/c medrol, antibiotics - inhaled bronchodilators - O2 to keep Spo2 >90% - can d/c home or monitor on floor
--- NOTE | 2019-12-05 11:02 | EKG ---
Test Reason : Blood Pressure : / mmHG Vent. Rate : 076 BPM Atrial Rate : 076 BPM P-R Int : 162 ms QRS Dur : 110 ms QT Int : 482 ms P-R-T Axes : 056 -08 127 degrees QTc Int : 542 ms NORMAL SINUS RHYTHM T WAVE ABNORMALITY, CONSIDER LATERAL ISCHEMIA PROLONGED QT ABNORMAL ECG WHEN COMPARED WITH ECG OF 13-SEP-2019 14:51, NO SIGNIFICANT CHANGE WAS FOUND Confirmed by ARINA VELASCO, MAKENZIE ([id number]) on 12/05/2019 11:02:26 AM Referred By: Confirmed By:MAKENZIE SANTA MD
[2019-12-05] MEDS ORDERED: ALBUTEROL SO4 0.083% IH SOL 2.5 MG/3 ML VIAL.NEB. NEB PRN (11:05)
[2019-12-05 11:23] VITALS: BP 189/112; PULSE 84; TEMP 98
--- NOTE | 2019-12-05 12:04 | PN ---
Physical Exam: SUBJECTIVE: Patient seen and examined. Pt keeps asking to be sent home and resisting care. Not on BIPAP. on NC only. No fever OBJECTIVE: Vital Signs Period Temp Pulse Resp BP Sys/Padron Pulse Ox Last 24 Hr 97.5 F-98.2 F 74-89 14-22 110-197/52-132 86-98 GENERAL: The patient is awake, alert, and fully oriented, in no acute distress. HEAD: Normal with no signs of trauma. NECK: Trachea midline, full range of motion, supple. LUNGS: Breath sounds equal, clear to auscultation bilaterally but decreased at bases, no wheezes, no crackles, no accessory muscle use. HEART: Regular rate and rhythm, S1, S2 without murmur, rub or gallop. ABDOMEN: Soft, nontender, nondistended, normoactive bowel sounds, no guarding, no rebound, no hepatosplenomegaly, no masses. EXTREMITIES: 2+ pulses, warm, well-perfused, 1+ edema. PSYCH: Normal mood, normal affect. SKIN: Warm, dry, normal turgor, no rashes or lesions noted Laboratory Results - last 24 hr 12/04/19 12/04/19 12/04/19 16:27 16:37 16:46 WBC RBC Hgb Hct MCV MCH MCHC RDW Plt Count MPV Absolute Neuts (auto) Neutrophils % Lymphocytes % Monocytes % Eosinophils % Basophils % Nucleated RBC % Retic Count PT with INR 12.10 INR 1.03 PTT (Actin FS) 41.1 H Anticoagulation Therapy Puncture Site Patient Temperature ABG pH ABG pCO2 at Pt Temp ABG pO2 at Pt Temp ABG HCO3 ABG O2 Sat (Measured) ABG O2 Content ABG Base Excess Won Test VBG pH POC VBG pCO2 POC VBG pO2 VBG HCO3 VBG O2 Sat (Jaime) VBG Base Excess O2 Delivery Device Oxygen Flow Rate Vent Mode Vent Rate Mechanical Rate PEEP Pressure Support Vent Sodium 133 L Potassium 3.6 Chloride 99 Carbon Dioxide 24 Anion Gap 9 BUN 49.2 H Creatinine 3.3 H Est GFR (CKD-EPI)AfAm 16.28 Est GFR (CKD-EPI)NonAf 14.05 POC Glucometer 212 Random Glucose 211 H Lactic Acid Calcium 7.9 L Phosphorus Magnesium 2.2 Iron TIBC Iron Saturation Unsaturated IBC Ferritin Total Bilirubin 0.6 AST 35 ALT 33 Alkaline Phosphatase 301 H Creatine Kinase 257 H Creatine Kinase Index 4.8 CK-MB (CK-2) 12.4 H Troponin I 0.11 H B-Natriuretic Peptide 28270.1 H Total Protein 7.6 Albumin 3.6 Vitamin B12 Serum Folate TSH 2.88 Influenza A (Rapid) Influenza B (Rapid) 12/04/19 12/04/19 12/04/19 16:46 16:46 17:36 WBC 8.0 RBC 2.97 L Hgb 9.3 L Hct 29.1 L MCV 98.1 H MCH 31.4 MCHC 32.0 RDW 19.6 H Plt Count 185 D MPV 9.9 Absolute Neuts (auto) 6.5 Neutrophils % 81.9 Lymphocytes % 4.0 L D Monocytes % 12.1 H Eosinophils % 1.8 Basophils % 0.2 Nucleated RBC % 0 Retic Count PT with INR INR PTT (Actin FS) Anticoagulation Therapy Puncture Site Patient Temperature ABG pH ABG pCO2 at Pt Temp ABG pO2 at Pt Temp ABG HCO3 ABG O2 Sat (Measured) ABG O2 Content ABG Base Excess Won Test VBG pH 7.17 L* POC VBG pCO2 65.2 H POC VBG pO2 89.1 H VBG HCO3 23.0 VBG O2 Sat (Jaime) 95.0 H VBG Base Excess -5.5 L O2 Delivery Device Oxygen Flow Rate Vent Mode Vent Rate Mechanical Rate PEEP Pressure Support Vent Sodium Potassium Chloride Carbon Dioxide Anion Gap BUN Creatinine Est GFR (CKD-EPI)AfAm Est GFR (CKD-EPI)NonAf POC Glucometer Random Glucose Lactic Acid 1.8 Calcium Phosphorus Magnesium Iron TIBC Iron Saturation Unsaturated IBC Ferritin Total Bilirubin AST ALT Alkaline Phosphatase Creatine Kinase Creatine Kinase Index CK-MB (CK-2) Troponin I B-Natriuretic Peptide Total Protein Albumin Vitamin B12 Serum Folate TSH Influenza A (Rapid) Influenza B (Rapid) 12/04/19 12/04/19 12/04/19 17:56 18:05 22:00 WBC RBC Hgb Hct MCV MCH MCHC RDW Plt Count MPV Absolute Neuts (auto) Neutrophils % Lymphocytes % Monocytes % Eosinophils % Basophils % Nucleated RBC % Retic Count PT with INR INR PTT (Actin FS) Anticoagulation Therapy No Result Required. Cancelled Puncture Site Left radial Cancelled Patient Temperature Cancelled ABG pH 7.20 L Cancelled ABG pCO2 at Pt Temp 61.7 H Cancelled ABG pO2 at Pt Temp 87.4 Cancelled ABG HCO3 23.1 Cancelled ABG O2 Sat (Measured) 95.4 Cancelled ABG O2 Content 12.0 Cancelled ABG Base Excess -4.8 L Cancelled Won Test Positive Cancelled VBG pH POC VBG pCO2 POC VBG pO2 VBG HCO3 VBG O2 Sat (Jaime) VBG Base Excess O2 Delivery Device No Result Required. Cancelled Oxygen Flow Rate No Result Required. Cancelled Vent Mode No Result Required. Cancelled Vent Rate No Result Required. Cancelled Mechanical Rate No Result Required. Cancelled PEEP Cancelled Pressure Support Vent No Result Required. Cancelled Sodium Potassium Chloride Carbon Dioxide Anion Gap BUN Creatinine Est GFR (CKD-EPI)AfAm Est GFR (CKD-EPI)NonAf POC Glucometer Random Glucose Lactic Acid Calcium Phosphorus Magnesium Iron TIBC Iron Saturation Unsaturated IBC Ferritin Total Bilirubin AST ALT Alkaline Phosphatase Creatine Kinase Creatine Kinase Index CK-MB (CK-2) Troponin I B-Natriuretic Peptide Total Protein Albumin Vitamin B12 Serum Folate TSH Influenza A (Rapid) Negative Influenza B (Rapid) Negative 12/04/19 12/04/19 12/05/19 22:45 23:04 06:15 WBC RBC Hgb Hct MCV MCH MCHC RDW Plt Count MPV Absolute Neuts (auto) Neutrophils % Lymphocytes % Monocytes % Eosinophils % Basophils % Nucleated RBC % Retic Count PT with INR INR PTT (Actin FS) Anticoagulation Therapy No Result Required. Cancelled Puncture Site Left radial Cancelled Patient Temperature Cancelled ABG pH 7.26 L Cancelled ABG pCO2 at Pt Temp 48.5 H Cancelled ABG pO2 at Pt Temp 73.7 L Cancelled ABG HCO3 21.1 L Cancelled ABG O2 Sat (Measured) 93.6 L Cancelled ABG O2 Content 11.4 Cancelled ABG Base Excess -5.3 L Cancelled Won Test Positive Cancelled VBG pH POC VBG pCO2 POC VBG pO2 VBG HCO3 VBG O2 Sat (Jaime) VBG Base Excess O2 Delivery Device Bipap Cancelled Oxygen Flow Rate 30% Cancelled Vent Mode S/t Cancelled Vent Rate 16 Cancelled Mechanical Rate No Result Required. Cancelled PEEP Cancelled Pressure Support Vent 14/4 Cancelled Sodium Potassium Chloride Carbon Dioxide Anion Gap BUN Creatinine Est GFR (CKD-EPI)AfAm Est GFR (CKD-EPI)NonAf POC Glucometer 219 Random Glucose Lactic Acid Calcium Phosphorus Magnesium Iron TIBC Iron Saturation Unsaturated IBC Ferritin Total Bilirubin AST ALT Alkaline Phosphatase Creatine Kinase Creatine Kinase Index CK-MB (CK-2) Troponin I B-Natriuretic Peptide Total Protein Albumin Vitamin B12 Serum Folate TSH Influenza A (Rapid) Influenza B (Rapid) 12/05/19 12/05/19 12/05/19 06:40 06:40 06:54 WBC 6.5 RBC 2.95 L Hgb 9.2 L Hct 28.4 L MCV 96.2 H MCH 31.2 MCHC 32.4 RDW 19.4 H Plt Count 168 MPV 9.4 Absolute Neuts (auto) 6.1 Neutrophils % 94.0 H Lymphocytes % 2.7 L D Monocytes % 3.1 L Eosinophils % 0.0 D Basophils % 0.2 Nucleated RBC % 0 Retic Count 1.78 H D PT with INR INR PTT (Actin FS) Anticoagulation Therapy Puncture Site Patient Temperature ABG pH ABG pCO2 at Pt Temp ABG pO2 at Pt Temp ABG HCO3 ABG O2 Sat (Measured) ABG O2 Content ABG Base Excess Won Test VBG pH POC VBG pCO2 POC VBG pO2 VBG HCO3 VBG O2 Sat (Jaime) VBG Base Excess O2 Delivery Device Oxygen Flow Rate Vent Mode Vent Rate Mechanical Rate PEEP Pressure Support Vent Sodium 133 L Potassium 4.2 Chloride 100 Carbon Dioxide 23 Anion Gap 10 BUN 63.5 H Creatinine 4.0 H Est GFR (CKD-EPI)AfAm 12.90 Est GFR (CKD-EPI)NonAf 11.13 POC Glucometer 266 Random Glucose 294 H Lactic Acid Calcium 8.1 L Phosphorus 6.6 H Magnesium 2.2 Iron 41 L TIBC 222 L Iron Saturation 18 Unsaturated IBC 181 L Ferritin 818.1 H Total Bilirubin AST ALT Alkaline Phosphatase Creatine Kinase 235 H Creatine Kinase Index 4.2 CK-MB (CK-2) 9.9 H Troponin I 0.15 H B-Natriuretic Peptide Total Protein Albumin Vitamin B12 808 Serum Folate 15 TSH Influenza A (Rapid) Influenza B (Rapid) 12/05/19 10:28 WBC RBC Hgb Hct MCV MCH MCHC RDW Plt Count MPV Absolute Neuts (auto) Neutrophils % Lymphocytes % Monocytes % Eosinophils % Basophils % Nucleated RBC % Retic Count PT with INR INR PTT (Actin FS) Anticoagulation Therapy Puncture Site Patient Temperature ABG pH ABG pCO2 at Pt Temp ABG pO2 at Pt Temp ABG HCO3 ABG O2 Sat (Measured) ABG O2 Content ABG Base Excess Won Test VBG pH POC VBG pCO2 POC VBG pO2 VBG HCO3 VBG O2 Sat (Jaime) VBG Base Excess O2 Delivery Device Oxygen Flow Rate Vent Mode Vent Rate Mechanical Rate PEEP Pressure Support Vent Sodium Potassium Chloride Carbon Dioxide Anion Gap BUN Creatinine Est GFR (CKD-EPI)AfAm Est GFR (CKD-EPI)NonAf POC Glucometer 225 Random Glucose Lactic Acid Calcium Phosphorus Magnesium Iron TIBC Iron Saturation Unsaturated IBC Ferritin Total Bilirubin AST ALT Alkaline Phosphatase Creatine Kinase Creatine Kinase Index CK-MB (CK-2) Troponin I B-Natriuretic Peptide Total Protein Albumin Vitamin B12 Serum Folate TSH Influenza A (Rapid) Influenza B (Rapid) Active Medications Generic Name Dose Route Start Last Admin Trade Name Freq PRN Reason Stop Dose Admin Albuterol Sulfate 1 amp 12/05/19 11:05 Ventolin 0.083% Nebulizer Soln - NEB Q6H PRN SHORT OF BREATH/WHEEZING Albuterol/Ipratropium 1 amp 12/05/19 12:00 Duoneb - NEB RQID ALDO Atorvastatin Calcium 20 mg 12/05/19 22:00 Lipitor - PO HS ALDO Budesonide/Formoterol Fumarate 2 puff 12/05/19 22:00 Symbicort 160/4.5mcg - IH BID ALDO Folic Acid 1 mg 12/06/19 10:00 Folic Acid - PO DAILY ALDO Furosemide 40 mg 12/06/19 10:00 Lasix - PO DAILY [facility] Heparin Sodium (Porcine) 5,000 unit 12/05/19 14:00 Heparin - SQ TID ALDO Hydralazine HCl 50 mg 12/06/19 10:00 Apresoline - PO DAILY ALDO Ceftriaxone Sodium 1 gm/ 50 mls @ 100 mls/hr 12/06/19 10:00 Dextrose IVPB DAILY [facility] Protocol Insulin Aspart 1 vial 12/05/19 16:30 Novolog Vial Sliding Scale - SQ ACHS [facility] Protocol Isosorbide Mononitrate 30 mg 12/05/19 17:00 Imdur - PO BIDISMO ALDO Metoprolol Succinate 25 mg 12/06/19 10:00 Toprol Xl - PO DAILY ALDO Pantoprazole Sodium 40 mg 12/06/19 10:00 Protonix Iv IVPUSH DAILY [facility] ASSESSMENT/PLAN: 64 y/o F with PMHx COPD (Not on home O2), ESRD on HD via Right chest Permacath (TuThSa, Last HD Session today, Plan Examiner: Dr. Moore, recently started HD during last visit), HFrEF (Echo 09/04), Restless leg syndrome (recently started on Ropinirole), Breast CA (s/p R Lumpectomy and Chemo), Endometrial Ca (s/p TAHBSO), HTN, PARVEZ (unclear if uses CPAP at home), PAD, HLD, DMII was BIBEMS for episodes of lethargy during HD today, admitted to ICU for further airway monitoring. #Neuro -AMS prob med related -Pt back to baseline AAOx3 -Hx of Restless leg syndrome (recently started on Ropinirole) -consider lowest dose of pramipexole #Cardio Elevated Troponin I 0.11 ->0.15 Hx of HFrEF (Echo 09/04), HTN, PAD, HLD -no Chest pain -Resume PO Meds -titrate up hydralazine prn -Cardio Consulted, Appreciate rec's #Pulm Acute Hypercapneic Respiratory Failure. now resolved Hx of COPD (Not on home O2), PARVEZ ( CPAP at home) -CXR Negative, Influenza Negative, Afebrile Nonseptic appearing -no longer on Bipap -D/C'ed IV Solumedrol 40mg Q8H -Bronchodilation via Ventolin, Duoneb, Symbicort -D/C'ed Ceftriaxone -Supplemental O2 to maintain SpO2 88-92% #Renal Hx of ESRD on HD via Right chest Permacath (TuThSa) -HD yesterday -Nephrology consulted for HD #Endo Hx of DMII -ISS BGMs ACHS #Heme/Onc Hx of Breast CA (s/p R Lumpectomy and Chemo), Endometrial Ca (s/p TAHBSO), Anemia -iron 41, TIBC 222, Iron sat 18, unsat [id number], transferrin pending, ferritin 818.1, B12 808, Folate 15 #FEN -No Standing fluids -Replete lytes PRN -Na/ diabetic diet #PPx -DVT: Heparin Dispo: transfer to [facility] [place] Visit type - Emergency Visit Emergency Visit: Yes ED Registration Date: 12/04/19 Care time: The patient presented to the Emergency Department on the above date and was hospitalized for further evaluation of their emergent condition. - New Patient This patient is new to me today: Yes Date on this admission: 12/05/19 - Critical Care Critical Care patient: Yes Total Critical Care Time (in minutes): 35 Critical Care Statement: The care of this patient involved high complexity decision making to prevent further life threatening deterioration of the patient's condition and/or to evaluate & treat vital organ system(s) failure or risk of failure. ATTENDING PHYSICIAN STATEMENT I saw and evaluated the patient. I reviewed the resident's note and discussed the case with the resident. I agree with the resident's findings and plan as documented. SUBJECTIVE: OBJECTIVE: ASSESSMENT AND PLAN:
[2019-12-05 12:06] LABS: ANISOCYTOSIS 1+; MACROCYTOSIS 0; OVALOCYTE 1+; PLATELET ESTIMATE NORMAL; TARGET CELLS 1+; TEAR DROP CELLS 1+
--- NOTE | 2019-12-05 12:51 | DS ---
Physical Examination Vital Signs: Vital Signs Temperature 98.0 F 12/05/19 11:22 Pulse Rate 84 12/05/19 11:22 Respiratory Rate 20 12/05/19 11:22 Blood Pressure 189/112 H 12/05/19 11:22 O2 Sat by Pulse Oximetry (%) 98 12/05/19 09:00 Findings/Remarks: This is a 64 y/o woman with a PMHx of ESRD (,,), CHF, COPD, Anemia, Systolic Cardiomyopathy, CAd, PAD, Uterine Ca (2006), R- Breast Ca. Who presents to the ED from the Dialysis center for lethargy. Patient reports since being started on Lyrica 150 mg she has been sleeping longer. She reports taking the last dose . Patient also reports increased SOB. Patient denies fever , chills, HADDAD, CP, palpitations, AP, N/V/D, constipation. Patient denies recent travel or sick contacts. Feels better now, denies any SOB Constitutional: Yes: Well Nourished, No Distress, Calm Cardiovascular: Yes: Regular Rate and Rhythm Respiratory: Yes: Regular Gastrointestinal: Yes: Normal Bowel Sounds, Soft, Abdomen, Obese Renal/: Yes: Oliguria Musculoskeletal: Yes: WNL Extremities: Yes: WNL Edema: No Peripheral Pulses WNL: Yes Neurological: Yes: Alert, Oriented Psychiatric: Yes: Alert, Oriented Labs: CBC, BMP 12/05/19 06:40 12/05/19 06:40 Discharge Summary Problems reviewed: Yes Reason For Visit: DROWSINESS/ALTERED MENTAL STAT/ACUTE RESP ACIDOSIS Condition: Stable - Instructions Diet, Activity, Other Instructions: -D/C lyrica (Pregabalin) -Increase Pramipexole to 0.5 mg daily at bedtime -Follow up with Dr Mcgrath within next 2 weeks Referrals: Anyi Mcgrath MD [Primary Care Provider] - Disposition: HOME - Home Medications Comprehensive Discharge Medication List: Ambulatory Orders Alprazolam 0.5 mg PO DAILY 12/04/19 Atorvastatin Ca [Lipitor] 20 mg PO HS 12/04/19 Folic Acid 1 mg PO DAILY 12/04/19 Furosemide [Lasix -] 40 mg PO DAILY 12/04/19 Isosorbide Mononitrate [Isosorbide Mononitrate ER] 30 mg PO BID 12/04/19 Metoprolol Succinate [Toprol Xl] 25 mg PO DAILY 12/04/19 Metoprolol Tartrate [Lopressor -] 50 mg PO BID 12/04/19 hydrALAZINE HCL [Apresoline -] 50 mg PO DAILY 12/04/19 Albuterol 0.083% Nebulizer Laura [Ventolin 0.083% Nebulizer Soln -] 1 amp NEB Q6H PRN amp 12/05/19 Albuterol 0.083% Nebulizer Laura [Ventolin 0.083% Nebulizer Soln -] 1 amp NEB Q6H PRN amp 12/05/19 Albuterol 2.5/Ipratropium 0.5 [Duoneb -] 1 amp NEB RQID amp 12/05/19 Albuterol 2.5/Ipratropium 0.5 [Duoneb -] 1 amp NEB RQID amp 12/05/19 Budesonide/Formeterol Fumarate [SYMBICORT 160/4.5mcg -] 2 puff IH BID inhaler 12/05/19 Budesonide/Formeterol Fumarate [SYMBICORT 160/4.5mcg -] 2 puff IH BID inhaler 12/05/19 Pramipexole Dihydrochloride [Mirapex -] 0.5 mg PO HS #31 tablet 12/05/19 Prescription Drug Monitoring Program (I-STOP) results: I-STOP reviewed and no issues identified
[2019-12-05] MEDS ORDERED: HEPARIN NA (PORCINE) 5,000 UNITS/ML 1ML VIAL SQ SCH (14:00)
[2019-12-05] MEDS ORDERED: INSULIN SLIDING SCALE (NOVOLOG) 1 VIAL SQ SCH (16:30)
[2019-12-05] MEDS ORDERED: ATORVASTATIN CA 20 MG TABLET (FP) PO SCH (22:00)
[2019-12-05] MEDS ORDERED: CHLORHEXIDINE GLUCONATE 4% CLEANSER FOR DECOLONIZATION TP SCH (22:00)
[2019-12-05] MEDS ORDERED: BUDESONIDE/FORMETEROL FUMARATE 160/4.5 mcg INHALER IH SCH (22:00)
[2019-12-06] MEDS ORDERED: CEFTRIAXONE 1 GM in DEXTROSE 5%-WATER - 50 ML IVPB SCH (10:00)
[2019-12-06] MEDS ORDERED: FOLIC ACID 1 MG TABLET (FP) PO SCH (10:00)
[2019-12-06] MEDS ORDERED: metoPROLOL SUCCINATE 25 MG TAB.SR.24H (FP) PO SCH (10:00)
[2019-12-06] MEDS ORDERED: PANTOPRAZOLE SODIUM 40 MG VIAL IVPUSH SCH (10:00)
[2019-12-06] MEDS ORDERED: hydrALAZINE HCL 50 MG TABLET (FP) PO SCH (10:00)
[2019-12-06] MEDS ORDERED: FUROSEMIDE 40 MG TABLET (FP) PO SCH (10:00)
== END 2019-12-05 15:13 | disposition home or self-care (01) | DRG 189 ==
LOC: JER 16:07 → JERBED 18:01 → JICU 22:38 → J6S 12-05 11:05
PROVIDERS: ADMIT Internal Medicine; ATTEND Family Medicine
DX: J96.01 Acute respiratory failure with hypoxia (principal); N18.6 End stage renal disease; J44.1 Chronic obstructive pulmonary disease with (acute) exacerbation; E87.2 Acidosis; I13.2 Hypertensive heart and chronic kidney disease with heart failure and with stage 5 chronic kidney disease, or end stage renal disease; I42.9 Cardiomyopathy, unspecified; I50.22 Chronic systolic (congestive) heart failure; J96.02 Acute respiratory failure with hypercapnia; R41.82 Altered mental status, unspecified; G25.81 Restless legs syndrome; Z85.3 Personal history of malignant neoplasm of breast; E11.9 Type 2 diabetes mellitus without complications; G47.33 Obstructive sleep apnea (adult) (pediatric); I27.20 Pulmonary hypertension, unspecified; E78.5 Hyperlipidemia, unspecified; I25.10 Atherosclerotic heart disease of native coronary artery without angina pectoris; E87.5 Hyperkalemia; E66.9 Obesity, unspecified; Z68.32 Body mass index [BMI] 32.0-32.9, adult
CPT/HCPCS: 36415; 36600; 71045-TC-FY; 80048; 80053; 82550; 82553; 82607; 82728; 82746; 82803; 82962; 83540; 83550; 83605; 83735; 83880; 84100; 84443; 84466; 84484; 85025; 85044; 85610; 85730; 87804; 93005; 93010; 94660; 99285-25

== ENCOUNTER 2019-12-07 11:59 | Inpatient (IN) | payer OTHER ==
--- NOTE | 2019-12-07 12:20 | PDOC ---
Rapid Medical Evaluation Time Seen by Provider: 12/07/19 12:17 Medical Evaluation: Allergies Allergy/AdvReac Type Severity Reaction Status Date / Time No Known Allergies Allergy Verified 12/04/19 16:39 12/07/19 12:18 This patient had brief evaluation by me cc: s/p fall yesterday HPI: The patient reports s/p fall at home hitting head when her legs gave out Reports head strike with no loc . Also complaining of right leg cramping PE: no apparent injury to head + swelling of right leg orders: labs and head ct This patient will proceed to the main emergency department for further evaluation 12/07/19 20:58 Discharge Disposition - Diagnosis Fatigue Leg pain Qualifiers: Laterality: bilateral Qualified Code(s): M79.604 - Pain in right leg - Discharge Dispostion Condition at time of disposition: Guarded - Referrals - Patient Instructions - Post Discharge Activity
--- NOTE | 2019-12-07 14:00 | PDOC ---
History of Present Illness - General Chief Complaint: Injury Stated Complaint: FALL Time Seen by Provider: 12/07/19 12:17 History Source: Patient Exam Limitations: No Limitations - History of Present Illness Initial Comments: 12/07/19 13:55 PCP: Ramila HPI: 64yo F COPD (not on home O2), ESRD (HD , , ; Last HD today), CHF, RLS sent in by Dr. Moore s/p fall last night with head trauma. Patient reports she was in her home, at 1:30AM woke up, fell down striking her head on the kitchen wall. Denies LOC, reports she had difficulty getting back up, called neighbor, then EMS so fire could help her get up. Presented for HD this morning and was told she required a head CT. Reports chronically poor sleep, recently trialled on 150mg of some sedative for RLS with worsening fatigue. Patient falls asleep twice mid-encounter, once being caught in my arms. Resistant to staying in bed 2/2 RLS. Denies any recent illnesses. No cough, fevers, chills, dyrusia, diarrhea, body aches, sick contacts. Feels well aside from RLS / fatigue. All: NKDA Meds: Per chart PMH: As above PSH: Per chart Past History - Travel Traveled outside of the country in the last 30 days: No Close contact w/someone who was outside of country & ill: No - Past Medical History Allergies/Adverse Reactions: Allergies Allergy/AdvReac Type Severity Reaction Status Date / Time No Known Allergies Allergy Verified 12/07/19 12:20 Home Medications: Ambulatory Orders Alprazolam 0.5 mg PO DAILY 12/04/19 Atorvastatin Ca [Lipitor] 20 mg PO HS 12/04/19 Folic Acid 1 mg PO DAILY 12/04/19 Furosemide [Lasix -] 40 mg PO DAILY 12/04/19 Isosorbide Mononitrate [Isosorbide Mononitrate ER] 30 mg PO BID 12/04/19 Metoprolol Succinate [Toprol Xl] 25 mg PO DAILY 12/04/19 Metoprolol Tartrate [Lopressor -] 50 mg PO BID 12/04/19 hydrALAZINE HCL [Apresoline -] 50 mg PO DAILY 12/04/19 Albuterol 0.083% Nebulizer Laura [Ventolin 0.083% Nebulizer Soln -] 1 amp NEB Q6H PRN amp 12/05/19 Albuterol 0.083% Nebulizer Laura [Ventolin 0.083% Nebulizer Soln -] 1 amp NEB Q6H PRN amp 12/05/19 Albuterol 2.5/Ipratropium 0.5 [Duoneb -] 1 amp NEB RQID amp 12/05/19 Albuterol 2.5/Ipratropium 0.5 [Duoneb -] 1 amp NEB RQID amp 12/05/19 Budesonide/Formeterol Fumarate [SYMBICORT 160/4.5mcg -] 2 puff IH BID inhaler 12/05/19 Budesonide/Formeterol Fumarate [SYMBICORT 160/4.5mcg -] 2 puff IH BID inhaler 12/05/19 Pramipexole Dihydrochloride [Mirapex -] 0.5 mg PO HS #31 tablet 12/05/19 Anemia: Yes Asthma: Yes Cancer: Yes (Uterine Ca - 2007,rt breast ca,) Cardiac Disorders: Yes (Systolic cardiomyopathy, CAD, PAD) CVA: No COPD: No CHF: Yes Dementia: No Diabetes: Yes Dialysis: Yes GI Disorders: Yes (Colon polyps) Disorders: Yes HTN: Yes Hypercholesterolemia: Yes Kidney Stones: Yes (CKD) Liver Disease: No Seizures: No Thyroid Disease: No - Surgical History Abdominal Surgery: No Appendectomy: No Cardiac Surgery: No Cholecystectomy: No Lung Surgery: No Neurologic Surgery: No Orthopedic Surgery: No - Immunization History Immunization Up to Date: Yes - Psycho Social/Smoking Cessation Hx Smoking Status: Yes Smoking History: Never smoked Years of Tobacco Use: 31 Have you smoked in the past 12 months: Yes Number of Cigarettes Smoked Daily: 40 'Breaking Loose' booklet given: 07/11/18 Hx Alcohol Use: No Drug/Substance Use Hx: No Substance Use Type: None Hx Substance Use Treatment: No Review of Systems - Review of Systems Able to Perform ROS?: Yes Is the patient limited Burkinan proficient: Yes Constitutional: No: Chills, Fever, Weakness HEENTM: No: Nose Congestion, Throat Pain Respiratory: No: Cough, Orthopnea, Shortness of Breath, Wheezing Cardiac (ROS): No: Chest Pain, Edema, Palpitations, Syncope ABD/GI: No: Constipated, Diarrhea, Nausea, Poor Appetite, Poor Fluid Intake, Vomiting : No: Frequency Musculoskeletal: No: Back Pain, Muscle Pain, Muscle Weakness Integumentary: No: Rash Neurological: No: Headache, Numbness, Tingling, Weakness Hematologic/Lymphatic: No: Anemia, Blood Clots *Physical Exam - Vital Signs Last Vital Signs Temp Pulse Resp BP Pulse Ox 98 F 85 18 159/82 95 12/07/19 12:14 12/07/19 12:14 12/07/19 12:14 12/07/19 12:14 12/07/19 12:14 - Physical Exam 12/07/19 15:01 Vitals reviewed, notable for mild HTN GEN: Well appearing, obese, appears stated age, NAD, uncomfortable, trying to get up. AAOx3. HEENT: NCAT, EOMI, PERRL. Sclera anicteric, noninjected. No facial asymmetry. Moist mucous membranes. Normal voice. Trachea midline. CV: RRR, S1/S2, no murmurs / rubs / gallops appreciated. LUNG: CTAB, normal work of breathing. No wheezes, rales, rhonchi. No cough. Speaking full sentences. GI: Soft, NTND, +BS, no guarding, no rebound. No masses. Neg CVAT b/l. EXTREMITIES: 2+ distal pulses. +B/l LE edema worse on the right. No obvious deformities of all extremities. SKIN: Warm, dry, no rashes appreciated, non-jaundiced. PSYCH: Normal mood and affect. Cooperative and appropriate. NEURO: CN grossly intact. Moving all extremities well. Normal strength and sensation grossly. Falls asleep falling forward multiple times mid conversation. ED Treatment Course - LABORATORY CBC & Chemistry Diagram: 12/07/19 14:27 12/07/19 14:27 Medical Decision Making - Medical Decision Making 12/07/19 14:58 - No ICH on NCHCT 12/07/19 15:00 64yo F COPD (not on home O2), ESRD (HD , , ; Last HD today), CHF, RLS presenting s/p fall. Concerning for extreme fatigue, poor judgment, actively falling asleep mid-encounter. - NCHCT, CXR. EKG - CBC, CMP - FALL RISK, placed in T-kareem bed 12/07/19 15:22 - Baseline anemia, no leukocytosis - CXR pending read - CMP pending Admit - Med/Surg Plan for HD this afternoon Discharge - Discharge Information Problems reviewed: Yes Clinical Impression/Diagnosis: Leg pain Qualifiers: Laterality: bilateral Qualified Code(s): M79.604 - Pain in right leg Fatigue Qualifiers: Fatigue type: unspecified Qualified Code(s): R53.83 - Other fatigue Condition: Guarded - Admission Yes - Follow up/Referral Referrals: Anyi Mcgrath MD [Primary Care Provider] - - Patient Discharge Instructions - Post Discharge Activity
--- NOTE | 2019-12-07 15:03 | PDOC ---
Attending Attestation - Resident Resident Name: Hong Saavedra - ED Attending Attestation I have performed the following: I have examined & evaluated the patient, The case was reviewed & discussed with the resident, I agree w/resident's findings & plan - HPI HPI: 12/07/19 15:00 64y/o F h/o RLS, frequent falls in setting of increasingly unsteady gait presents now after another fall with head injury. - Physicial Exam PE: 12/07/19 15:01 vss alert, nad exam as noted, neuro intact head atraumatic - Medical Decision Making 12/07/19 15:02 64y/o F frequent falls, now with head injury. sent for evaluation and admission. labs, ua ct head, cxr admit Heart Score/ECG Review #1 ECG reviewed & interpreted by me at: 14:16 General ECG Interpretation: Sinus Rhythm, Normal Rate (86), Normal Intervals ( qtc 497), No acute ischemic changes (TWI I/AVL) Compared to previous ECG there are: No significant change (c/w 12/04/19)
--- NOTE | 2019-12-07 15:15 | EKG ---
Test Reason : Blood Pressure : / mmHG Vent. Rate : 086 BPM Atrial Rate : 086 BPM P-R Int : 148 ms QRS Dur : 098 ms QT Int : 416 ms P-R-T Axes : 045 011 119 degrees QTc Int : 497 ms POOR DATA QUALITY, INTERPRETATION MAY BE ADVERSELY AFFECTED NORMAL SINUS RHYTHM CANNOT RULE OUT ANTERIOR INFARCT , AGE UNDETERMINED ABNORMAL ECG WHEN COMPARED WITH ECG OF 04-DEC-2019 16:19, NO SIGNIFICANT CHANGE WAS FOUND Confirmed by Billy Gutiérrez ([id number]) on 12/07/2019 3:15:22 PM Referred By: Confirmed By:Billy Gutiérrez
[2019-12-07 15:16] LABS: BASO % 0.4 % (0-2.0); EOS % 0.7 % (0-4.5); HEMATOCRIT 28.9 % (32.4-45.2); HEMOGLOBIN 9.5 GM/dL (10.7-15.3); LYMPH % 14.2 % (8-40); MCH 31.4 pg (25.7-33.7); MCHC 32.9 g/dl (32.0-36.0); MEAN CELL VOLUME 95.3 fl (80-96); MEAN PLT VOLUME 9.6 fl (7.5-11.1); MONO % 11.7 % (3.8-10.2); PLATELET COUNT 206 K/MM3 (134-434); RBC 3.04 M/mm3 (3.60-5.2); WHITE BLOOD COUNT 8.1 K/mm3 (4.0-10.0)
[2019-12-07 15:21] LABS: ALBUMIN 3.4 g/dl (3.4-5.0); BILIRUBIN,TOTAL 0.9 mg/dL (0.2-1); BLOOD UREA NITROGEN 92.5 mg/dL (7-18); CALCIUM 8.1 mg/dL (8.5-10.1); CREATININE 5.1 mg/dL (0.55-1.3); POTASSIUM 4.5 mmol/L (3.5-5.1); TOT PROT 7.2 g/dl (6.4-8.2)
[2019-12-07] MEDS ORDERED: SODIUM CHLORIDE 250 ML IV PRN (15:40)
--- NOTE | 2019-12-07 15:40 | CONSULT ---
Consult Consult Specialty:: Nephrology Reason for Consultation:: ESRD - History of Present Illness Chief Complaint: fell and banged head yesterday History of Present Illness: Pt is a 64 year old female with pmhx of esrd, chf, restless leg syndrome, and copd who was sent in after a fall. She fell last night a banged the back of her head. SHe denies shortness of breath. She missed her HD today. She is on a TTS schedule. She complains of lower ext edema. She denies chest pain or palpitations. She says that the fall was mechanicaly. She had no LOC. - History Source History Provided By: Patient, Medical Record - Past Medical History Cardio/Vascular: Yes: CHF, HTN, Hyperlipdemia, Pulmonary Hypertension Pulmonary: Yes: Asthma, Sleep Apnea (on BIPAP at night) Gastrointestinal: Yes: GI Bleed (see HPI), Other (had EGD and colono 12/31, ) Renal/: Yes: Renal Failure, Renal Inusuff, Other (hyperkalemia) ...LMP: 11/17/07 Endocrine: Yes: Diabetes Mellitus (uncontrolled) - Alcohol/Substance Use Hx Alcohol Use: No History of Substance Use: reports: None - Smoking History Smoking history: Never smoked Have you smoked in the past 12 months: Yes Aproximately how many cigarettes per day: 40 - Social History ADL: Independent History of Recent Travel: No Home Medications - Allergies Allergies/Adverse Reactions: Allergies Allergy/AdvReac Type Severity Reaction Status Date / Time No Known Allergies Allergy Verified 12/07/19 12:20 - Home Medications Home Medications: Ambulatory Orders Alprazolam 0.5 mg PO DAILY 12/04/19 Atorvastatin Ca [Lipitor] 20 mg PO HS 12/04/19 Folic Acid 1 mg PO DAILY 12/04/19 Furosemide [Lasix -] 40 mg PO DAILY 12/04/19 Isosorbide Mononitrate [Isosorbide Mononitrate ER] 30 mg PO BID 12/04/19 Metoprolol Succinate [Toprol Xl] 25 mg PO DAILY 12/04/19 Metoprolol Tartrate [Lopressor -] 50 mg PO BID 12/04/19 hydrALAZINE HCL [Apresoline -] 50 mg PO DAILY 12/04/19 Albuterol 0.083% Nebulizer Laura [Ventolin 0.083% Nebulizer Soln -] 1 amp NEB Q6H PRN amp 12/05/19 Albuterol 0.083% Nebulizer Laura [Ventolin 0.083% Nebulizer Soln -] 1 amp NEB Q6H PRN amp 12/05/19 Albuterol 2.5/Ipratropium 0.5 [Duoneb -] 1 amp NEB RQID amp 12/05/19 Albuterol 2.5/Ipratropium 0.5 [Duoneb -] 1 amp NEB RQID amp 12/05/19 Budesonide/Formeterol Fumarate [SYMBICORT 160/4.5mcg -] 2 puff IH BID inhaler 12/05/19 Budesonide/Formeterol Fumarate [SYMBICORT 160/4.5mcg -] 2 puff IH BID inhaler 12/05/19 Pramipexole Dihydrochloride [Mirapex -] 0.5 mg PO HS #31 tablet 12/05/19 Family Medical History Family History: Denies Review of Systems - Review of Systems Constitutional: reports: Malaise Eyes: reports: No Symptoms HENT: reports: No Symptoms Neck: reports: No Symptoms Cardiovascular: reports: No Symptoms Respiratory: reports: No Symptoms Gastrointestinal: reports: No Symptoms Genitourinary: reports: No Symptoms Musculoskeletal: reports: Other (restless leg) Neurological: reports: No Symptoms Endocrine: reports: No Symptoms Hematology/Lymphatic: reports: No Symptoms Physical Exam Vital Signs: Vital Signs Temperature 98 F 12/07/19 12:14 Pulse Rate 85 12/07/19 12:14 Respiratory Rate 18 12/07/19 12:14 Blood Pressure 159/82 12/07/19 12:14 O2 Sat by Pulse Oximetry (%) 95 12/07/19 12:14 Constitutional: Yes: Calm Eyes: Yes: Conjunctiva Clear HENT: Yes: Atraumatic Cardiovascular: Yes: S1, S2 Respiratory: Yes: CTA Bilaterally Gastrointestinal: Yes: Soft Renal/: Yes: WNL Edema: Yes Edema: LLE: 1+, RLE: 1+ Neurological: Yes: Oriented Psychiatric: Yes: Oriented Labs: CBC, BMP 12/07/19 14:27 12/07/19 14:27 Imaging - Results Cat Scan: Report Reviewed Problem List - Problems (1) ESRD (end stage renal disease) Code(s): N18.6 - END STAGE RENAL DISEASE Assessment/Plan Impression 1. ESRD 2. anemia 3. CHF 4. HTN 5. DM 6. hyperlipidemia 7. anxiety 8. uterine cancer 9. hx GI bleed 10. COPD 11. breast cancer 12, restless leg syndrome Plan - HD today - renal diet - ct head negative - no heparin with HD - discussed with ER
--- NOTE | 2019-12-07 21:37 | HP ---
Admitting History and Physical - Primary Care Physician PCP: Anyi Mcgrath - Admission Chief Complaint: s/p Fall, Fatigue, Missed ESRD History of Present Illness: This is a 64 y/o woman with a past medical history of ESRD (,,), CHF, HTN , HLD, COPD (no O2), DM, Anemia, Anxiety, RLS. Who presents to the ED sent in by Dr. Moffett for head CT and admission for ESRD. Patient reports falling at home in her kitchen at 01:30 "hitting her head" ,denies LOC. She was noted to be lethargic at the Dialysis center this morning, per ED records. During the interview patient was lethargic but arousable to verbal and tactile stimulus. ED course was noted for: (1) Head CT- neg ICH (2) EKG- NSR, cannot r/o anterior infarct (3) Na 128 History Source: Patient, Medical Record Limitations to Obtaining History: Clinical Condition, Poor Historian - Past Medical History Cardiovascular: Yes: CHF, HTN, Hyperlipdemia, Pulmonary Hypertension Pulmonary: Yes: Asthma, Sleep Apnea (on BIPAP at night) Gastrointestinal: Yes: GI Bleed (see HPI), Other (had EGD and colono 12/31, ) Renal/: Yes: Renal Failure, Renal Inusuff, Other (hyperkalemia) ...LMP: 11/17/07 Heme/Onc: Yes: Anemia Endocrine: Yes: Diabetes Mellitus (uncontrolled) - Past Surgical History Additional Past Surgical History: Permacath RCW - Smoking History Smoking history: Never smoked Have you smoked in the past 12 months: Yes Aproximately how many cigarettes per day: 40 - Alcohol/Substance Use Hx Alcohol Use: No History of Substance Use: reports: None - Social History Usual Living Arrangement: Yes: Alone ADL: Independent History of Recent Travel: No Home Medications - Allergies Allergies/Adverse Reactions: Allergies Allergy/AdvReac Type Severity Reaction Status Date / Time No Known Allergies Allergy Verified 12/07/19 12:20 - Home Medications Home Medications: Ambulatory Orders Alprazolam 0.5 mg PO DAILY 12/04/19 Atorvastatin Ca [Lipitor] 20 mg PO HS 12/04/19 Folic Acid 1 mg PO DAILY 12/04/19 Furosemide [Lasix -] 40 mg PO DAILY 12/04/19 Isosorbide Mononitrate [Isosorbide Mononitrate ER] 30 mg PO BID 12/04/19 Metoprolol Succinate [Toprol Xl] 25 mg PO DAILY 12/04/19 Metoprolol Tartrate [Lopressor -] 50 mg PO BID 12/04/19 hydrALAZINE HCL [Apresoline -] 50 mg PO DAILY 12/04/19 Albuterol 0.083% Nebulizer Laura [Ventolin 0.083% Nebulizer Soln -] 1 amp NEB Q6H PRN amp 12/05/19 Albuterol 0.083% Nebulizer Laura [Ventolin 0.083% Nebulizer Soln -] 1 amp NEB Q6H PRN amp 12/05/19 Albuterol 2.5/Ipratropium 0.5 [Duoneb -] 1 amp NEB RQID amp 12/05/19 Albuterol 2.5/Ipratropium 0.5 [Duoneb -] 1 amp NEB RQID amp 12/05/19 Budesonide/Formeterol Fumarate [SYMBICORT 160/4.5mcg -] 2 puff IH BID inhaler 12/05/19 Budesonide/Formeterol Fumarate [SYMBICORT 160/4.5mcg -] 2 puff IH BID inhaler 12/05/19 Pramipexole Dihydrochloride [Mirapex -] 0.5 mg PO HS #31 tablet 12/05/19 Family Medical History Family History: Unable to Obtain Review of Systems Unable to obtain ROS, reason: clinical condition Physical Examination Vital Signs: Vital Signs Temperature 98.1 F 12/07/19 20:00 Pulse Rate 89 12/07/19 20:00 Respiratory Rate 22 H 12/07/19 20:00 Blood Pressure 112/80 12/07/19 20:00 O2 Sat by Pulse Oximetry (%) 100 12/07/19 19:30 Constitutional: Yes: No Distress, Calm, Obese Eyes: Yes: Conjunctiva Clear, PERRL HENT: Yes: WNL, Atraumatic, Normocephalic Neck: Yes: WNL, Supple, Trachea Midline Cardiovascular: Yes: Regular Rate and Rhythm, S1, S2 Respiratory: Yes: Diminished, On Nasal O2 Gastrointestinal: Yes: WNL, Normal Bowel Sounds, Soft ...Rectal Exam: Yes: Deferred Breast(s): Yes: WNL Musculoskeletal: Yes: WNL Extremities: Yes: WNL Edema: LLE: Trace, RLE: Trace Peripheral Pulses WNL: Yes Neurological: Yes: Lethargy (arousable to vebral/tactile stimulus) Labs: CBC, BMP 12/07/19 14:27 12/07/19 14:27 Laboratory Results - last 24 hr 12/07/19 12/07/19 12/07/19 14:27 14:27 22:14 WBC 8.1 RBC 3.04 L Hgb 9.5 L Hct 28.9 L MCV 95.3 MCH 31.4 MCHC 32.9 RDW 19.0 H Plt Count 206 D MPV 9.6 Absolute Neuts (auto) 5.9 Neutrophils % 73.0 D Lymphocytes % 14.2 D Monocytes % 11.7 H D Eosinophils % 0.7 D Basophils % 0.4 Nucleated RBC % 0 Anticoagulation Therapy Puncture Site ABG pH ABG pCO2 at Pt Temp ABG pO2 at Pt Temp ABG HCO3 ABG O2 Sat (Measured) ABG O2 Content ABG Base Excess Won Test Carboxyhemoglobin Methemoglobin O2 Delivery Device Oxygen Flow Rate Vent Mode Vent Rate Mechanical Rate Pressure Support Vent Sodium 128 L Potassium 4.5 Chloride 95 L Carbon Dioxide 19 L Anion Gap 14 BUN 92.5 H Creatinine 5.1 H Est GFR (CKD-EPI)AfAm 9.62 Est GFR (CKD-EPI)NonAf 8.30 POC Glucometer 124 Random Glucose 106 Calcium 8.1 L Total Bilirubin 0.9 AST 38 H ALT 31 Alkaline Phosphatase 206 H Total Protein 7.2 Albumin 3.4 12/07/19 22:20 WBC RBC Hgb Hct MCV MCH MCHC RDW Plt Count MPV Absolute Neuts (auto) Neutrophils % Lymphocytes % Monocytes % Eosinophils % Basophils % Nucleated RBC % Anticoagulation Therapy No Result Required. Puncture Site Right brachial ABG pH 7.29 L ABG pCO2 at Pt Temp 56.1 H ABG pO2 at Pt Temp 75.3 L ABG HCO3 25.9 ABG O2 Sat (Measured) 93.3 L ABG O2 Content 11.3 ABG Base Excess -0.6 Won Test No Result Required. Carboxyhemoglobin 3.1 H Methemoglobin < 1.0 O2 Delivery Device N/c Oxygen Flow Rate 2 lpm Vent Mode No Result Required. Vent Rate No Result Required. Mechanical Rate No Result Required. Pressure Support Vent No Result Required. Sodium Potassium Chloride Carbon Dioxide Anion Gap BUN Creatinine Est GFR (CKD-EPI)AfAm Est GFR (CKD-EPI)NonAf POC Glucometer Random Glucose Calcium Total Bilirubin AST ALT Alkaline Phosphatase Total Protein Albumin Intake & Output 12/05/19 12/06/19 12/07/19 12/08/19 23:59 23:59 23:59 23:59 Weight 81.647 kg Imaging - Results EKG: Image Reviewed Problem List - Problems (1) Fall at home Assessment/Plan: unwitnessed Head CT- neg ICH Will need PT eval [employer]- STR, [employer] Fall Precautions Monitor CBC, BMP Monitor vitals Code(s): W19.XXXA - UNSPECIFIED FALL, INITIAL ENCOUNTER; Y92.009 - UNSP PLACE IN UNSP NON-INSTITUT (PRIVATE) RESIDENCE PLACE (2) Fatigue Assessment/Plan: Likely secondary to PARVEZ vs COPD vs Medication Patient reports not using CPAP at home ?non-working vs noncompliance Consider Endocrine eval Monitor CBC, BMP Monitor vitals Code(s): R53.83 - OTHER FATIGUE Qualifiers: Fatigue type: unspecified Qualified Code(s): R53.83 - Other fatigue (3) Hyponatremia Assessment/Plan: Likely due to Dehydration vs CKD Na deficit 432 Monitor BMP Monitor vitals Code(s): E87.1 - HYPO-OSMOLALITY AND HYPONATREMIA (4) ESRD (end stage renal disease) Assessment/Plan: HD- ,, Appreciate Nephrology consult- HD Management Avoid Nephrotoxic drugs Monitor vitals Code(s): N18.6 - END STAGE RENAL DISEASE (5) COPD (chronic obstructive pulmonary disease) Assessment/Plan: stable Appreciate Pulmonology consult Bipap prn 3LNC Continue home meds Code(s): J44.9 - CHRONIC OBSTRUCTIVE PULMONARY DISEASE, UNSPECIFIED (6) CAD (coronary artery disease) Assessment/Plan: EKG reviewed Continue home meds Code(s): I25.10 - ATHSCL HEART DISEASE OF [place] CORONARY ARTERY W/O ANG PCTRS Qualifiers: Coronary Disease-Associated Artery/Lesion type: [place] coronary artery Associated angina: with other forms of angina pectoris (7) CHF (congestive heart failure) Assessment/Plan: stable Chest Xray image, report reviewed- no significant interval change, cardiomegaly no acute disease Continue home meds Monitor vitals Code(s): I50.9 - HEART FAILURE, UNSPECIFIED (8) Diabetes mellitus Assessment/Plan: stable BGMs ISS Monitor BMP Code(s): E11.9 - TYPE 2 DIABETES MELLITUS WITHOUT COMPLICATIONS Assessment/Plan This is a 64 y/o woman with a PMHx of ESRD (,,), CHF, HTN, HLD, COPD (no O2), DM, Anemia, Anxiety, RLS. Admitted for Fall, Fatigue, ESRD, Hyponatremia for further evaluation of their emergent condition. Plan: See Problem List FEN Fluid Restriction Replete lytes prn Renal Diet Visit type - Emergency Visit Emergency Visit: Yes ED Registration Date: 12/07/19 Care time: The patient presented to the Emergency Department on the above date and was hospitalized for further evaluation of their emergent condition. - New Patient This patient is new to me today: Yes Date on this admission: 12/07/19 - Critical Care Critical Care patient: No
[2019-12-07] MEDS: ALBUTEROL SO4 2.5/IPRATROPIUM 0.5 INH SOL 3 ML VIAL.NEB. NEB SCH (22:30)
[2019-12-07 22:37] LABS: ARTERIAL BLD GAS O2 SATURATION 93.3 % (95-98); ARTERIAL BLOOD GAS PCO2 56.1 mmHg (35-45); ARTERIAL BLOOD GAS PO2 75.3 mmHg (80-100); ARTERIAL BLOOD GAS pH 7.29 (7.35-7.45)
[2019-12-07 22:38] LABS: ARTERIAL BLOOD GAS BASE EXCESS -0.6 meq/l (-2-2); CARBOXYHEMOGLOBIN 3.1 % (0-2)
[2019-12-07] MEDS: INSULIN SLIDING SCALE (NOVOLOG) 1 VIAL SQ SCH (23:09)
[2019-12-07] MEDS: ISOSORBIDE MONONITRATE 30 MG TAB.SR.24H (FP) PO SCH (23:09)
[2019-12-07] MEDS: ATORVASTATIN CA 20 MG TABLET (FP) PO SCH (23:09)
[2019-12-07] MEDS: BUDESONIDE/FORMETEROL FUMARATE 160/4.5 mcg INHALER IH SCH (23:28)
[2019-12-08] MEDS: INSULIN SLIDING SCALE (NOVOLOG) 1 VIAL SQ SCH ×4 (06:13→21:59)
[2019-12-08 07:12] LABS: ARTERIAL BLOOD GAS pH 7.33 (7.35-7.45)
[2019-12-08 07:13] LABS: ALLENS TEST POSITIVE; ARTERIAL BLD GAS O2 SATURATION 96.3 % (95-98); ARTERIAL BLOOD GAS BASE EXCESS -0.7 meq/l (-2-2); ARTERIAL BLOOD GAS PCO2 47.8 mmHg (35-45)
[2019-12-08] MEDS: ALBUTEROL SO4 2.5/IPRATROPIUM 0.5 INH SOL 3 ML VIAL.NEB. NEB SCH ×4 (08:05→20:48)
[2019-12-08] MEDS ORDERED: hydrALAZINE HCL 50 MG TABLET (FP) PO SCH (10:00)
[2019-12-08] MEDS: FOLIC ACID 1 MG TABLET (FP) PO SCH (10:03)
[2019-12-08] MEDS: BUDESONIDE/FORMETEROL FUMARATE 160/4.5 mcg INHALER IH SCH ×2 (10:03→22:00)
[2019-12-08] MEDS: FUROSEMIDE 40 MG TABLET (FP) PO SCH (10:03)
[2019-12-08] MEDS: ISOSORBIDE MONONITRATE 30 MG TAB.SR.24H (FP) PO SCH ×2 (10:03→21:58)
--- NOTE | 2019-12-08 10:46 | PN ---
Progress Note, Physician Chief Complaint: Fall, Fatigue, Missed ESRD History of Present Illness: NAD sitting in chair wants to go home Lethargic, sleeping while taking Still feels restless legs State she fell because she felt weak in her legs - Current Medication List Current Medications: Active Medications Albuterol/Ipratropium (Duoneb -) 1 amp NEB RQID [facility] Last Admin: 12/08/19 08:05 Dose: 1 amp Atorvastatin Calcium (Lipitor -) 20 mg PO HS [facility] Last Admin: 12/07/19 23:09 Dose: 20 mg Budesonide/Formoterol Fumarate (Symbicort 160/4.5mcg -) 2 puff IH BID [facility] Last Admin: 12/08/19 10:03 Dose: 2 puff Folic Acid (Folic Acid -) 1 mg PO DAILY [facility] Last Admin: 12/08/19 10:03 Dose: 1 mg Furosemide (Lasix -) 40 mg PO DAILY [facility] Last Admin: 12/08/19 10:03 Dose: 40 mg Hydralazine HCl (Apresoline -) 50 mg PO DAILY [facility] Last Admin: 12/08/19 10:03 Dose: 50 mg Sodium Chloride (Normal Saline -) 250 mls @ 3,000 mls/hr IV PRN PRN PRN Reason: Hypotension during Dialysis Stop: 12/08/19 15:40 Insulin Aspart (Novolog Vial Sliding Scale -) 1 vial SQ ACHS [facility]; Protocol Last Admin: 12/08/19 06:13 Dose: Not Given Isosorbide Mononitrate (Imdur -) 30 mg PO BID [facility] Last Admin: 12/08/19 10:03 Dose: 30 mg - Objective Vital Signs: Vital Signs Temperature 98.7 F 12/08/19 06:00 Pulse Rate 90 12/08/19 10:00 Respiratory Rate 12/08/19 10:00 Blood Pressure 164/74 12/08/19 10:00 O2 Sat by Pulse Oximetry (%) 99 12/08/19 08:04 Constitutional: Yes: Well Nourished, No Distress, Calm Cardiovascular: Yes: Regular Rate and Rhythm Respiratory: Yes: Regular Gastrointestinal: Yes: Normal Bowel Sounds, Soft Genitourinary: Yes: Oliguria Musculoskeletal: Yes: Muscle Weakness Edema: Yes Edema: LLE: 1+ (thigh), RLE: 1+ (thigh) Peripheral Pulses WNL: Yes Neurological: Yes: Alert, Oriented, Lethargy Psychiatric: Yes: Alert, Oriented Labs: CBC, BMP 12/07/19 14:27 12/07/19 14:27 Problem List - Problems (1) ESRD (end stage renal disease) Assessment/Plan: -Nephrology consult -Received HD yesterday -May need extra sessions Problems reviewed: Yes Code(s): N18.6 - END STAGE RENAL DISEASE (2) Fall at home Assessment/Plan: -Physical therapy eval -Safe/fall precautions -EKG unremarkable -CT head negative Problems reviewed: Yes Code(s): W19.XXXA - UNSPECIFIED FALL, INITIAL ENCOUNTER; Y92.009 - UNSP PLACE IN UNSP NON-INSTITUT (PRIVATE) RESIDENCE PLACE (3) Fatigue Problems reviewed: Yes Code(s): R53.83 - OTHER FATIGUE Qualifiers: Fatigue type: unspecified Qualified Code(s): R53.83 - Other fatigue (4) Acute on chronic systolic (congestive) heart failure Assessment/Plan: -Diuretics as per nephrology Problems reviewed: Yes Code(s): I50.23 - ACUTE ON CHRONIC SYSTOLIC (CONGESTIVE) HEART FAILURE (5) CAD (coronary artery disease) Assessment/Plan: -Continue atorvastatin 20 mg po HS Problems reviewed: Yes Code(s): I25.10 - ATHSCL HEART DISEASE OF [place] CORONARY ARTERY W/O ANG PCTRS Qualifiers: Coronary Disease-Associated Artery/Lesion type: [place] coronary artery Associated angina: with other forms of angina pectoris (6) Diabetes mellitus Assessment/Plan: -Last A1c at 7.1 in 08/2019 -Recheck A1c -BGM AC HS -ISS -Renal diabetic diet Problems reviewed: Yes Code(s): E11.9 - TYPE 2 DIABETES MELLITUS WITHOUT COMPLICATIONS Assessment/Plan see problem list
[2019-12-08 11:38] LABS: HEMATOCRIT 27.6 % (32.4-45.2); MCH 31.2 pg (25.7-33.7); MCHC 32.6 g/dl (32.0-36.0); MEAN CELL VOLUME 95.6 fl (80-96); MEAN PLT VOLUME 9.6 fl (7.5-11.1); PLATELET COUNT 148 K/MM3 (134-434); RBC 2.88 M/mm3 (3.60-5.2); RDW 19.1 % (11.6-15.6); WHITE BLOOD COUNT 8.4 K/mm3 (4.0-10.0)
[2019-12-08 12:01] LABS: BLOOD UREA NITROGEN 65.6 mg/dL (7-18); CALCIUM 8.1 mg/dL (8.5-10.1); CREATININE 3.9 mg/dL (0.55-1.3); POTASSIUM 4.1 mmol/L (3.5-5.1)
[2019-12-08] MEDS: PREGABALIN 25 MG CAPSULE PO SCH (12:43)
--- NOTE | 2019-12-08 13:54 | CONSULT ---
Consultation: REQUESTING PROVIDER:primary team CONSULT REQUEST: We have been asked to medically evaluate this patient for (H/O breast mass ). HISTORY OF PRESENT ILLNESS: This is a 64 y/o woman with a past medical history of ESRD (,,), CHF, HTN , HLD, COPD (no O2), DM, Anemia, Anxiety, RLS. Who presents to the ED sent in by Dr. Moffett for head CT and admission for ESRD. Patient reports falling at home in her kitchen at 01:30 "hitting her head" ,denies LOC. She was noted to be lethargic at the Dialysis center this morning, per ED records. During the interview patient was lethargic but arousable to verbal and tactile stimulus. Past Medical History:CHF, HTN, Hyperlipdemia, Pulmonary Hypertension, Asthma, Sleep Apnea (on BIPAP at night),GI Bleed Other (had EGD and colono 12/31, ) DM, ESRD , hyperkalemia ,right breast ca s/p lumpectomy and RT and chemo per patient - Past Surgical History:Shawandaacat VICKYW current smoker 1/2 PPD , denies any alcohol or drugs , live alone , independent REVIEW OF SYSTEMS: denies any fever but report chills denies any cp, palpitation , abdominal pain , N/V/D/C reports leg swelling and restless leg syndrome feel sleepy due to medication for leg pain lyrica ? PHYSICAL EXAMINATION Vital Signs - 24 hr 12/07/19 12/07/19 12/07/19 16:00 16:20 16:50 Temperature Pulse Rate 86 82 81 Pulse Rate [ Apical] Respiratory 18 18 18 Rate Blood Pressure 178/97 H 171/81 H 167/78 Blood Pressure [Left Arm] O2 Sat by Pulse Oximetry (%) 12/07/19 12/07/19 12/07/19 17:20 17:50 18:20 Temperature Pulse Rate 85 92 H 87 Pulse Rate [ Apical] Respiratory 18 18 18 Rate Blood Pressure 165/96 162/91 154/77 Blood Pressure [Left Arm] O2 Sat by Pulse Oximetry (%) 12/07/19 12/07/19 12/07/19 18:50 18:55 19:30 Temperature 98.1 F Pulse Rate 84 84 Pulse Rate [ 86 Apical] Respiratory 18 18 20 Rate Blood Pressure 164/90 149/95 Blood Pressure 152/89 [Left Arm] O2 Sat by Pulse 100 Oximetry (%) 12/07/19 12/07/19 12/07/19 20:00 20:05 23:07 Temperature 98.1 F Pulse Rate 89 84 Pulse Rate [ Apical] Respiratory 22 H Rate Blood Pressure 112/80 150/73 Blood Pressure [Left Arm] O2 Sat by Pulse 84 L 96 Oximetry (%) 12/07/19 12/08/19 12/08/19 23:29 00:40 04:42 Temperature 98 F Pulse Rate 76 Pulse Rate [ Apical] Respiratory 22 H Rate Blood Pressure 154/85 Blood Pressure [Left Arm] O2 Sat by Pulse 95 95 Oximetry (%) 12/08/19 12/08/19 12/08/19 06:00 08:04 10:00 Temperature 98.7 F Pulse Rate 78 90 Pulse Rate [ Apical] Respiratory 20 20 Rate Blood Pressure 157/69 164/74 Blood Pressure [Left Arm] O2 Sat by Pulse 99 Oximetry (%) HEENT: CHRIS, EOM Intact, Exopthalmus Oropharynx: No thrush, No mucositis Neck: ecchymosis Nodes: Without adenopathy Breasts: hyperpigmented , indurated right breast - s/p surgery, and RT, right side perm cath Cor: RSR, No murmurs, No MRG Lungs: Clear to P&A Abd:obese , Soft , ND, NT , normal BS Ext:+1 edema peripheral skin changes indurated abdominal skin and breast skin as well, possible anasacra Laboratory Results - last 24 hr 12/07/19 12/07/19 12/07/19 14:27 14:27 22:14 WBC 8.1 RBC 3.04 L Hgb 9.5 L Hct 28.9 L MCV 95.3 MCH 31.4 MCHC 32.9 RDW 19.0 H Plt Count 206 D MPV 9.6 Absolute Neuts (auto) 5.9 Neutrophils % 73.0 D Lymphocytes % 14.2 D Monocytes % 11.7 H D Eosinophils % 0.7 D Basophils % 0.4 Nucleated RBC % 0 Anticoagulation Therapy Puncture Site ABG pH ABG pCO2 at Pt Temp ABG pO2 at Pt Temp ABG HCO3 ABG O2 Sat (Measured) ABG O2 Content ABG Base Excess Won Test Carboxyhemoglobin Methemoglobin O2 Delivery Device Oxygen Flow Rate Vent Mode Vent Rate Mechanical Rate Pressure Support Vent Sodium 128 L Potassium 4.5 Chloride 95 L Carbon Dioxide 19 L Anion Gap 14 BUN 92.5 H Creatinine 5.1 H Est GFR (CKD-EPI)AfAm 9.62 Est GFR (CKD-EPI)NonAf 8.30 POC Glucometer 124 Random Glucose 106 Calcium 8.1 L Total Bilirubin 0.9 AST 38 H ALT 31 Alkaline Phosphatase 206 H Total Protein 7.2 Albumin 3.4 12/07/19 12/08/19 12/08/19 22:20 05:24 06:55 WBC RBC Hgb Hct MCV MCH MCHC RDW Plt Count MPV Absolute Neuts (auto) Neutrophils % Lymphocytes % Monocytes % Eosinophils % Basophils % Nucleated RBC % Anticoagulation Therapy No Result Required. No Result Required. Puncture Site Right brachial Right radial ABG pH 7.29 L 7.33 L ABG pCO2 at Pt Temp 56.1 H 47.8 H ABG pO2 at Pt Temp 75.3 L 86.0 ABG HCO3 25.9 24.8 ABG O2 Sat (Measured) 93.3 L 96.3 ABG O2 Content 11.3 11.8 ABG Base Excess -0.6 -0.7 Won Test No Result Required. Positive Carboxyhemoglobin 3.1 H Methemoglobin < 1.0 O2 Delivery Device N/c No Result Required. Oxygen Flow Rate 2 lpm No Result Required. Vent Mode No Result Required. No Result Required. Vent Rate No Result Required. No Result Required. Mechanical Rate No Result Required. No Result Required. Pressure Support Vent No Result Required. No Result Required. Sodium Potassium Chloride Carbon Dioxide Anion Gap BUN Creatinine Est GFR (CKD-EPI)AfAm Est GFR (CKD-EPI)NonAf POC Glucometer 114 Random Glucose Calcium Total Bilirubin AST ALT Alkaline Phosphatase Total Protein Albumin 12/08/19 12/08/19 12/08/19 10:15 10:15 12:14 WBC 8.4 RBC 2.88 L Hgb 9.0 L Hct 27.6 L MCV 95.6 MCH 31.2 MCHC 32.6 RDW 19.1 H Plt Count 148 D MPV 9.6 Absolute Neuts (auto) Neutrophils % Lymphocytes % Monocytes % Eosinophils % Basophils % Nucleated RBC % Anticoagulation Therapy Puncture Site ABG pH ABG pCO2 at Pt Temp ABG pO2 at Pt Temp ABG HCO3 ABG O2 Sat (Measured) ABG O2 Content ABG Base Excess Won Test Carboxyhemoglobin Methemoglobin O2 Delivery Device Oxygen Flow Rate Vent Mode Vent Rate Mechanical Rate Pressure Support Vent Sodium 132 L Potassium 4.1 Chloride 99 Carbon Dioxide 20 L Anion Gap 14 BUN 65.6 H Creatinine 3.9 H Est GFR (CKD-EPI)AfAm 13.30 Est GFR (CKD-EPI)NonAf 11.48 POC Glucometer 236 Random Glucose 187 H Calcium 8.1 L Total Bilirubin AST ALT Alkaline Phosphatase Total Protein Albumin Active Medications Generic Name Dose Route Start Last Admin Trade Name Freq PRN Reason Stop Dose Admin Albuterol/Ipratropium 1 amp 12/07/19 20:00 12/08/19 11:29 Duoneb - NEB 1 amp RQID ALDO Administration Atorvastatin Calcium 20 mg 12/07/19 22:00 12/07/19 23:09 Lipitor - PO 20 mg HS ALDO Administration Budesonide/Formoterol Fumarate 2 puff 12/07/19 22:00 12/08/19 10:03 Symbicort 160/4.5mcg - IH 2 puff BID ALDO Administration Escitalopram Oxalate 5 mg 12/09/19 10:00 Lexapro - PO DAILY ALDO Folic Acid 1 mg 12/08/19 10:00 12/08/19 10:03 Folic Acid - PO 1 mg DAILY ALDO Administration Furosemide 40 mg 12/08/19 10:00 12/08/19 10:03 Lasix - PO 40 mg DAILY ALDO Administration Hydralazine HCl 50 mg 12/08/19 10:00 12/08/19 10:03 Apresoline - PO 50 mg DAILY ALDO Administration Sodium Chloride 250 mls @ 3,000 mls/hr 12/07/19 15:40 Normal Saline - IV 12/08/19 15:40 PRN PRN Hypotension during Dialysis Insulin Aspart 1 vial 12/07/19 22:00 12/08/19 12:17 Novolog Vial Sliding Scale - SQ Not Given ACHS [facility] Protocol Isosorbide Mononitrate 30 mg 12/07/19 22:00 12/08/19 10:03 Imdur - PO 30 mg BID ALDO Administration Metoprolol Succinate 25 mg 12/09/19 10:00 Toprol Xl - PO DAILY ALDO Pramipexole Dihydrochloride 0.5 mg 12/08/19 22:00 Mirapex - PO HS ALDO Pregabalin 25 mg 12/08/19 12:15 12/08/19 12:43 Lyrica - PO 25 mg DAILY ALDO Administration Sitagliptin Phosphate 25 mg 12/08/19 12:20 12/08/19 12:44 Januvia - PO 25 mg DAILY@0700 ALDO Administration CBC, BMP 12/08/19 10:15 12/08/19 10:15 ASSESSMENT/PLAN: 64 year old female with pmhx of breast cancer , was sent by dr wheeler after unfitness fall , head Ct negative , we were consulted for h/o breast cancer. #Breast ca- triple negative - s/p chemotherpay/RT/ S/P post surgery #Anemia-.normochromic normocytic likely due to chronic disease.at her base line US right breast anasacra will need to remove extra fluids with next session of HD # ESRD # hyponatremia # DM #CHF #HTN # DM #hyperlipidemia # anxiety # uterine cancer # hx GI bleed # COPD per primary team Dispo: We will continue to follow the patient. Thank you for this consultative opportunity. per DR byers note h/o rt. breast cancer --stage IIB T2 N1 M0 IDC Triple Neg and /+ ALNs in 2018 s/p TC chemotherapy and adjuvant RT-- s/p lumpectomy/ RT/ s/p TC x4 No clinical evidence for recurrence Visit type - Emergency Visit Emergency Visit: Yes ED Registration Date: 12/07/19 Care time: The patient presented to the Emergency Department on the above date and was hospitalized for further evaluation of their emergent condition. - New Patient This patient is new to me today: Yes Date on this admission: 12/08/19 - Critical Care Critical Care patient: No ATTENDING PHYSICIAN STATEMENT I saw and evaluated the patient. I reviewed the resident's note and discussed the case with the resident. I agree with the resident's findings and plan as documented. SUBJECTIVE: OBJECTIVE: ASSESSMENT AND PLAN:
--- NOTE | 2019-12-08 13:54 | PN ---
Progress Note (short form) - Note Progress Note: ID consult dictated 64 yo female with esrd/on HD recently fall 2018, CHF, RLS, DM, right breast cancer asked to see for left breast swelling she was admitted s/p mechanical fall at home she is on HD via left PC she has history of right breast ca s/p lumpectomy and RT and chemo per patient also LN dissection report right breast has been heavy and swollen for a long time now no fevers no erythema noted of the breast +right breast mass with induration, no erythema or warmth noted doubt cellulitis would ask oncology to see her for f/u of her breast cancer d/w hospitalist Problem List - Problems (1) Fall at home Code(s): W19.XXXA - UNSPECIFIED FALL, INITIAL ENCOUNTER; Y92.009 - UNSP PLACE IN [facility] NON-[facility] (PRIVATE) RESIDENCE PLACE (2) Breast cancer Code(s): C50.919 - MALIGNANT NEOPLASM OF [facility] SITE OF UNSPECIFIED FEMALE BREAST
[2019-12-08 14:25] LABS: PLATELET ESTIMATE DECREASED
[2019-12-08 14:43] LABS: ADD RBC MORPHOLOGY YES
[2019-12-08 14:46] LABS: MACROCYTOSIS 1+; OVALOCYTE 1+; TARGET CELLS 1+; TEAR DROP CELLS 1+; TOXIC GRANULATION 1+
--- NOTE | 2019-12-08 17:38 | PN ---
Progress Note, Physician History of Present Illness: Pt seen and examined at bedside. She is awake and alert. SHe complains of lower ext cramps. - Current Medication List Current Medications: Active Medications Albuterol/Ipratropium (Duoneb -) 1 amp NEB RQID [facility] Last Admin: 12/08/19 16:14 Dose: 1 amp Atorvastatin Calcium (Lipitor -) 20 mg PO HS [facility] Last Admin: 12/07/19 23:09 Dose: 20 mg Budesonide/Formoterol Fumarate (Symbicort 160/4.5mcg -) 2 puff IH BID [facility] Last Admin: 12/08/19 10:03 Dose: 2 puff Escitalopram Oxalate (Lexapro -) 5 mg PO DAILY [facility] Folic Acid (Folic Acid -) 1 mg PO DAILY [facility] Last Admin: 12/08/19 10:03 Dose: 1 mg Furosemide (Lasix -) 40 mg PO DAILY [facility] Last Admin: 12/08/19 10:03 Dose: 40 mg Hydralazine HCl (Apresoline -) 50 mg PO DAILY [facility] Last Admin: 12/08/19 10:03 Dose: 50 mg Sodium Chloride (Normal Saline -) 250 mls @ 3,000 mls/hr IV PRN PRN PRN Reason: Hypotension during Dialysis Stop: 12/08/19 15:40 Insulin Aspart (Novolog Vial Sliding Scale -) 1 vial SQ ACHS [facility]; Protocol Last Admin: 12/08/19 12:17 Dose: Not Given Isosorbide Mononitrate (Imdur -) 30 mg PO BID [facility] Last Admin: 12/08/19 10:03 Dose: 30 mg Metoprolol Succinate (Toprol Xl -) 25 mg PO DAILY [facility] Pramipexole Dihydrochloride (Mirapex -) 0.5 mg PO [facility] Pregabalin (Lyrica -) 25 mg PO DAILY [facility] Last Admin: 12/08/19 12:43 Dose: 25 mg Sitagliptin Phosphate (Januvia -) 25 mg PO DAILY@0700 [facility] Last Admin: 12/08/19 12:44 Dose: 25 mg - Objective Vital Signs: Vital Signs Temperature 98.3 F 12/08/19 14:00 Pulse Rate 101 H 12/08/19 15:17 Respiratory Rate 20 12/08/19 15:17 Blood Pressure 130/99 12/08/19 15:17 O2 Sat by Pulse Oximetry (%) 96 12/08/19 16:13 Constitutional: Yes: Calm Eyes: Yes: Conjunctiva Clear HENT: Yes: Atraumatic Cardiovascular: Yes: S1, S2 Respiratory: Yes: CTA Bilaterally Gastrointestinal: Yes: Soft Genitourinary: Yes: WNL Edema: Yes Edema: LLE: 2+, RLE: 2+ Neurological: Yes: Oriented Psychiatric: Yes: Oriented Labs: CBC, BMP 12/08/19 10:15 12/08/19 10:15 Problem List - Problems (1) ESRD (end stage renal disease) Code(s): N18.6 - END STAGE RENAL DISEASE Assessment/Plan Current Medications Generic Name Dose Route Start Last Admin Trade Name Freq PRN Reason Stop Dose Admin Albuterol/Ipratropium 1 amp 12/07/19 20:00 12/08/19 16:14 Duoneb - NEB 1 amp RQID ALDO Administration Atorvastatin Calcium 20 mg 12/07/19 22:00 12/07/19 23:09 Lipitor - PO 20 mg HS ALDO Administration Budesonide/Formoterol Fumarate 2 puff 12/07/19 22:00 12/08/19 10:03 Symbicort 160/4.5mcg - IH 2 puff BID ALDO Administration Escitalopram Oxalate 5 mg 12/09/19 10:00 Lexapro - PO DAILY ALDO Folic Acid 1 mg 12/08/19 10:00 12/08/19 10:03 Folic Acid - PO 1 mg DAILY [facility]DO Administration Furosemide 40 mg 12/08/19 10:00 12/08/19 10:03 Lasix - PO 40 mg DAILY ALDO Administration Hydralazine HCl 50 mg 12/08/19 10:00 12/08/19 10:03 Apresoline - PO 50 mg DAILY ALDO Administration Sodium Chloride 250 mls @ 3,000 mls/hr 12/07/19 15:40 Normal Saline - IV 12/08/19 15:40 PRN PRN Hypotension during Dialysis Insulin Aspart 1 vial 12/07/19 22:00 12/08/19 12:17 Novolog Vial Sliding Scale - SQ Not Given ACHS [facility]DO Protocol Isosorbide Mononitrate 30 mg 12/07/19 22:00 12/08/19 10:03 Imdur - PO 30 mg BID ALDO Administration Metoprolol Succinate 25 mg 12/09/19 10:00 Toprol Xl - PO DAILY ALDO Pramipexole Dihydrochloride 0.5 mg 12/08/19 22:00 Mirapex - PO HS ALDO Pregabalin 25 mg 12/08/19 12:15 12/08/19 12:43 Lyrica - PO 25 mg DAILY [facility]DO Administration Sitagliptin Phosphate 25 mg 12/08/19 12:20 12/08/19 12:44 Januvia - PO 25 mg DAILY@0700 ALDO Administration Impression 1. ESRD 2. anemia 3. CHF 4. HTN 5. DM 6. hyperlipidemia 7. anxiety 8. uterine cancer 9. hx GI bleed 10. COPD 11. breast cancer 12, restless leg syndrome Plan - HD again tomorrow - decrease hydralazine dose - monitor bp - called [facility] for RSL - follow heme onc - no heparin with HD
--- NOTE | 2019-12-08 17:50 | CONS ---
DATE OF CONSULTATION: 12/07/2019 INFECTIOUS DISEASE CONSULTATION CONSULTATION REQUESTED BY: Anyi Mcgrath MD HISTORY OF PRESENT ILLNESS: The patient is a 64-year-old woman with a history of end-stage renal disease, restless leg syndrome and COPD. She has a history of left breast cancer. She is admitted status post a mechanical fall on the . She apparently went for dialysis. They sent her to the ER after she told them she had a fall and hit her head. She denies any fevers or chills, nausea, vomiting, diarrhea or dysuria. She reports fatigue. She has a history of recent hemodialysis. She started in the fall by a PermCath. She has a prior history of breast cancer as well status post lumpectomy. She reports radiation and chemotherapy with Dr. Beth. PAST MEDICAL HISTORY: Notable for cervical cancer. She has a history of right breast cancer, cardiomyopathy, CAD, asthma, anemia, history of CHF, diabetes, end-stage renal disease on dialysis, hypertension, hypercholesterolemia. PAST SURGICAL HISTORY: Notable for lumpectomy. She has had a hysterectomy in the past. She has restless leg syndrome as well. FAMILY HISTORY: Notable for diabetes and CVA in her mother, thyroid cancer in a sister. ALLERGIES: No known drug allergies. HOME MEDICATIONS: Alprazolam, atorvastatin, folic acid, isosorbide, metoprolol, Apresoline, albuterol nebulizer, DuoNebs, Symbicort and Mirapex. SOCIAL HISTORY: She has no history of cigarette or substance use. She lives alone. There is no recent travel. REVIEW OF SYSTEMS: As per HPI. She reports the right breast has been indurated and swollen for many months now. PHYSICAL EXAMINATION: Vital Signs: Temperature is 98.7, pulse 90, blood pressure 164/74, respiratory rate is 20. She is saturating at 99%. HEENT: She is normocephalic. Her eyes are anicteric. Neck: Supple. Lungs: Clear to auscultation. Heart: Regular rate and rhythm. Abdomen: Soft. Extremities: Notable for 1+ edema bilaterally. She has got scarring on her legs on the anterior aspect of both her shins where she says she scratches herself as well as her left forearm, where again, she says she scratches herself. Breasts: Her right breast is indurated and firm. There is a palpable mass. There is no erythema or warmth. LABORATORY DATA: White count is 8.4, hemoglobin is 9, platelets are 148. BUN and creatinine are 65 and 3.9 AST is 38, alkaline phosphatase is 206. In summary, this is a 64-year-old woman I am asked to see for possible cellulitis of her breast. I did not see any erythema or warmth to suggest cellulitis. She does have chronic swelling and induration with a palpable mass. I would suggest we ask oncology to reevaluate her for her breast cancer at this time. Further recommendations to follow. The case was discussed with the hospitalist. MADINA CARRILLO M.D. [id number]
--- NOTE | 2019-12-08 18:03 | PN ---
Teaching Attending Note Name of Resident: Tim Lee ATTENDING PHYSICIAN STATEMENT I saw and evaluated the patient. I reviewed the resident's note and discussed the case with the resident. I agree with the resident's findings and plan as documented. SUBJECTIVE: Patient seen and examined Well known to me. Non compliant in follow up Multiple co-morbid medical problems. Presented after fall. Has volume overload and attributes fall to "heavy legs." History of DM, ESRD, H.D. PARVEZ, smoking , breast ca, COPD, CHF, HBP, breast abscesses with multiple I & D's in past, RLS. HPL. Last Vital Signs Temp Pulse Resp BP Pulse Ox 98.3 F 101 H 20 130/99 96 12/08/19 14:00 12/08/19 15:17 12/08/19 15:17 12/08/19 15:17 12/08/19 16:13 HEENT: CHRIS, EOM Intact Oropharynx: No thrush, No mucositis Neck: Supple Nodes: Without adenopathy Breasts:right breast indurated , hyperpigmented , s/p lumpectomy , RT, and I & D's for breast abscesses; left breast - no masses Cor: RSR, No murmurs, No gallops Lungs: Clear to P&A Abd: Soft, Normal bowel sounds, No organomegaly, abdominal wall edema Ext:LE edema, indurated Skin:multiple cutaneous lesions CBC, BMP 12/08/19 10:15 12/08/19 10:15 Current Medications Generic Name Dose Route Start Last Admin Trade Name Freq PRN Reason Stop Dose Admin Albumin Human 12.5 gm 12/09/19 17:45 Albumin Human 25% IVPB Q30M ALDO Albuterol/Ipratropium 1 amp 12/07/19 20:00 12/08/19 16:14 Duoneb - NEB 1 amp RQID ALDO Administration Atorvastatin Calcium 20 mg 12/07/19 22:00 12/07/19 23:09 Lipitor - PO 20 mg HS ALDO Administration Budesonide/Formoterol Fumarate 2 puff 12/07/19 22:00 12/08/19 10:03 Symbicort 160/4.5mcg - IH 2 puff BID ALDO Administration Escitalopram Oxalate 5 mg 12/09/19 10:00 Lexapro - PO DAILY ALDO Folic Acid 1 mg 12/08/19 10:00 12/08/19 10:03 Folic Acid - PO 1 mg DAILY [facility] Administration Furosemide 40 mg 12/08/19 10:00 12/08/19 10:03 Lasix - PO 40 mg DAILY ALDO Administration Hydralazine HCl 10 mg 12/08/19 22:00 Apresoline - PO BID [facility] Sodium Chloride 250 mls @ 3,000 mls/hr 12/08/19 17:41 Normal Saline - IV 12/09/19 17:41 PRN PRN Hypotension during Dialysis Insulin Aspart 1 vial 12/07/19 22:00 12/08/19 17:36 Novolog Vial Sliding Scale - SQ Not Given ACHS [facility] Protocol Isosorbide Mononitrate 30 mg 12/07/19 22:00 12/08/19 10:03 Imdur - PO 30 mg BID [facility] Administration Metoprolol Succinate 25 mg 12/09/19 10:00 Toprol Xl - PO DAILY [facility] Pramipexole Dihydrochloride 0.5 mg 12/08/19 22:00 Mirapex - PO HS [facility] Pregabalin 25 mg 12/08/19 12:15 12/08/19 12:43 Lyrica - PO 25 mg DAILY ALDO Administration Sitagliptin Phosphate 25 mg 12/08/19 12:20 12/08/19 12:44 Januvia - PO 25 mg DAILY@0700 ALDO Administration Impression: Right breast - s/p RT/ lumpectomy, multiple I & D's of breast abscesses- indurated , hyperpigmented - no obvious recurrence. Past history of triple negative breast ca T2, N1, Stage IIB with 2/21 + axillary nodes treated with taxotere and cytoxan, and RT in 2017. Consider sono with outpatient mammography. Anemia - likely chronic disease. Check Fe++ studies , Epo level. Consider BEBE. ESRD/HD Fluid overload Recent fall COPD/Smoking CHF DM HBP HPL OBJECTIVE: ASSESSMENT AND PLAN:
--- NOTE | 2019-12-08 20:19 | CONSULT ---
Consult - text type - Consultation Consultation Note: NEUROLOGY CONSULTATION is greatly appreciated: Events reviewed and discussed with Dr. Moore. This 64 yo RH woman with multiple medical problems and ESRD on HD has had progressive pains in her legs especially on HD. Seen by me in the past for Diabetic PN and Femoral neuropathies vs. Diabetic amyotrophy- still can stand up from chair without assist and requires rolling walker. Calls thepolice if she falls at home. Severe RLS- can't lay down for HD. Given pramipexole 0.5 qHS with benefit for nocturnal pain and sleep. Recently given pregabalin 150 BID and "couldn't get OO Bed x two day and started to twitch." However, now on prgabalin 25 mg qd which "Helps." EXAM: edema up to her thighs. No bruits NEURO: MS/speech: Normal CN II-XII: Normal Motor: Mild intrinsic hand and ankle DF weakness. Mod Hip flexor weakness. Areflexic in legs (but crossed adduction B/L) Myoclonic jerks No FTN Dystaxia Decreased vibration to the knees. Romberg + Alex's off the bed Shuffling gait but stable with rolling walker. IMP: Diabetic PN Diabetic amyotrophy and/or femoral mononeuropathies Toxic metabolic encephalopathy with myoclonus (due to pregabalinloading?) Restless Legs syndrome with HD. SUGGEST: Check Fe++, TIBC, Ferritin Continue IV iron Increase pramipexole to 0.5 mg BID (give first dose before HD) and monitor orthostatic BP's after each HD Increase Pregabalin to 25 BID and gradually increase as necessary and tolerated. Neuro f/u as out patient. Thank you very much, Neftali Alfonso MD
[2019-12-08] MEDS ORDERED: PT OWN MED DRAWER 7, Y5N ONE (21:25)
[2019-12-08] MEDS: hydrALAZINE HCL 10 MG TABLET PO SCH (21:58)
[2019-12-08] MEDS: PRAMIPEXOLE DIHYDROCHLORIDE 0.5 MG TABLET PO SCH (21:59)
[2019-12-08] MEDS: ATORVASTATIN CA 20 MG TABLET (FP) PO SCH (21:59)
[2019-12-08] MEDS ORDERED: PRAMIPEXOLE DIHYDROCHLORIDE 0.5 MG TABLET PO SCH (22:00)
[2019-12-09] MEDS: INSULIN SLIDING SCALE (NOVOLOG) 1 VIAL SQ SCH ×4 (06:45→22:05)
[2019-12-09] MEDS: ALBUTEROL SO4 2.5/IPRATROPIUM 0.5 INH SOL 3 ML VIAL.NEB. NEB SCH ×4 (07:30→20:25)
[2019-12-09] MEDS: BUDESONIDE/FORMETEROL FUMARATE 160/4.5 mcg INHALER IH SCH ×2 (09:18→22:11)
[2019-12-09] MEDS ORDERED: FUROSEMIDE 40 MG TABLET (FP) PO SCH (10:00)
[2019-12-09] MEDS: metoPROLOL SUCCINATE 25 MG TAB.SR.24H (FP) PO SCH ×2 (10:00→14:02)
[2019-12-09] MEDS: hydrALAZINE HCL 10 MG TABLET PO SCH ×3 (10:00→22:04)
[2019-12-09] MEDS: FOLIC ACID 1 MG TABLET (FP) PO SCH ×2 (10:00→14:02)
[2019-12-09] MEDS: FUROSEMIDE 40 MG TABLET (FP) PO SCH (10:00)
[2019-12-09] MEDS: ISOSORBIDE MONONITRATE 30 MG TAB.SR.24H (FP) PO SCH ×3 (10:00→22:04)
[2019-12-09] MEDS: ESCITALOPRAM OXALATE 10 MG TABLET PO SCH ×2 (10:00→14:01)
[2019-12-09] MEDS: PRAMIPEXOLE DIHYDROCHLORIDE 0.5 MG TABLET PO SCH ×3 (10:00→22:05)
[2019-12-09] MEDS ORDERED: SODIUM CHLORIDE 250 ML IV PRN ×2 (10:42→14:56)
[2019-12-09] MEDS: ALBUMIN HUMAN 25% 12.5 GM/50 ML VIAL IVPB SCH ×4 (10:45→12:15)
--- NOTE | 2019-12-09 11:37 | PN ---
Progress Note, Physician Chief Complaint: Fall, Fatigue, Missed ESRD History of Present Illness: NAD Seen in dialysis Lethargic, sleeping while talking Leg cramps improved on Lyrica+ pramipexole State she fell because she felt weak in her legs - Current Medication List Current Medications: Active Medications Albumin Human (Albumin Human 25%) 12.5 gm IVPB Q30M [facility] Stop: 12/09/19 12:16 Albuterol/Ipratropium (Duoneb -) 1 amp NEB RQID [facility] Last Admin: 12/09/19 07:30 Dose: 1 amp Atorvastatin Calcium (Lipitor -) 20 mg PO HS [facility] Last Admin: 12/08/19 21:59 Dose: 20 mg Budesonide/Formoterol Fumarate (Symbicort 160/4.5mcg -) 2 puff IH BID [facility] Last Admin: 12/09/19 09:18 Dose: 2 puff Escitalopram Oxalate (Lexapro -) 5 mg PO DAILY [facility] Folic Acid (Folic Acid -) 1 mg PO DAILY [facility] Last Admin: 12/08/19 10:03 Dose: 1 mg Furosemide (Lasix -) 40 mg PO DAILY [facility] Last Admin: 12/08/19 10:03 Dose: 40 mg Hydralazine HCl (Apresoline -) 10 mg PO BID [facility] Last Admin: 12/08/19 21:58 Dose: 10 mg Insulin Aspart (Novolog Vial Sliding Scale -) 1 vial SQ ACHS [facility]; Protocol Last Admin: 12/09/19 06:45 Dose: Not Given Isosorbide Mononitrate (Imdur -) 30 mg PO BID [facility] Last Admin: 12/08/19 21:58 Dose: 30 mg Metoprolol Succinate (Toprol Xl -) 25 mg PO DAILY [facility] Polysaccharide Iron Complex (Niferex-150 -) 150 mg PO DAILY [facility] Pramipexole Dihydrochloride (Mirapex -) 0.5 mg PO BID [facility] Last Admin: 12/08/19 21:59 Dose: 0.5 mg Pregabalin (Lyrica -) 25 mg PO BID [facility] Sitagliptin Phosphate (Januvia -) 25 mg PO DAILY@0700 [facility] Last Admin: 12/09/19 06:46 Dose: 25 mg - Objective Vital Signs: Vital Signs Temperature 98.5 F 12/09/19 08:45 Pulse Rate 87 12/09/19 10:40 Respiratory Rate 18 01/23/20 10:40 Blood Pressure 153/79 12/09/19 10:40 O2 Sat by Pulse Oximetry (%) 98 12/09/19 10:59 Constitutional: Yes: Well Nourished, No Distress, Calm Cardiovascular: Yes: Regular Rate and Rhythm Respiratory: Yes: Regular Gastrointestinal: Yes: Normal Bowel Sounds, Soft, Abdomen, Obese Genitourinary: Yes: WNL Breast(s): Yes: Right (edema) Musculoskeletal: Yes: Muscle Weakness Extremities: Yes: WNL Edema: Yes (BL tyhigh +1) Peripheral Pulses WNL: Yes Neurological: Yes: Alert, Lethargy Psychiatric: Yes: Alert Labs: CBC, BMP 12/08/19 10:15 12/08/19 10:15 Problem List - Problems (1) ESRD (end stage renal disease) Assessment/Plan: -Nephrology consult -Received HD yesterday -May need extra sessions Problems reviewed: Yes Code(s): N18.6 - END STAGE RENAL DISEASE (2) Fall at home Assessment/Plan: -Physical therapy eval -Safe/fall precautions -EKG unremarkable -CT head negative Problems reviewed: Yes Code(s): W19.XXXA - UNSPECIFIED FALL, INITIAL ENCOUNTER; Y92.009 - UNSP PLACE IN [facility]SP [facility] (3) Fatigue Assessment/Plan: -multifactoria -moderately lethargic -would keep lyrica once a day at bedtime -Seen by neurology -Restarted on pramipexole-increased dosage, if continues to be lethargic- may decrease or d/c if neurology agrees. Problems reviewed: Yes Code(s): R53.83 - OTHER FATIGUE Qualifiers: Fatigue type: unspecified Qualified Code(s): R53.83 - Other fatigue (4) Acute on chronic systolic (congestive) heart failure Assessment/Plan: -Diuretics as per nephrology Problems reviewed: Yes Code(s): I50.23 - ACUTE ON CHRONIC SYSTOLIC (CONGESTIVE) HEART FAILURE (5) CAD (coronary artery disease) Assessment/Plan: -Continue atorvastatin 20 mg po HS Problems reviewed: Yes Code(s): I25.10 - ATHSCL HEART DISEASE OF [place] CORONARY ARTERY W/O ANG PCTRS Qualifiers: Coronary Disease-Associated Artery/Lesion type: [place] coronary artery Associated angina: with other forms of angina pectoris (6) Diabetes mellitus Assessment/Plan: -Last A1c at 7.1 in 08/2019 -A1c at 6.9 -BGM AC HS -ISS -Renal diabetic diet Problems reviewed: Yes Code(s): E11.9 - TYPE 2 DIABETES MELLITUS WITHOUT COMPLICATIONS (7) Breast swelling Assessment/Plan: -right breast -Seen by Oncology to r/o recurrence of breast ca -U/S breast negative for any obvious masses -Will need mammogram O/p Problems reviewed: Yes Code(s): N63.0 - UNSPECIFIED LUMP IN UNSPECIFIED BREAST (8) Anemia Assessment/Plan: -multifactorial -DAVID vs CKD -Iron % low -Start iron polysaccharide 150 mg po daily -monitor labs Problems reviewed: Yes Code(s): D64.9 - ANEMIA, UNSPECIFIED Assessment/Plan see problem list PT
[2019-12-09] MEDS: IRON POLYSACCHARIDES 150 MG CAPSULE PO SCH (14:02)
[2019-12-09] MEDS: PREGABALIN 25 MG CAPSULE PO SCH ×2 (14:03→22:06)
[2019-12-09] MEDS ORDERED: PT OWN MED DRAWER 7, Y5N ONE ×2 (14:06→21:57)
--- NOTE | 2019-12-09 14:55 | PN ---
Progress Note, Physician History of Present Illness: Pt seen and examined at bedside. She is getting HD. SHe feels cramps are a little better. - Current Medication List Current Medications: Active Medications Albuterol/Ipratropium (Duoneb -) 1 amp NEB RQID [facility] Last Admin: 12/09/19 11:58 Dose: Not Given Atorvastatin Calcium (Lipitor -) 20 mg PO HS [facility] Last Admin: 12/08/19 21:59 Dose: 20 mg Budesonide/Formoterol Fumarate (Symbicort 160/4.5mcg -) 2 puff IH BID [facility] Last Admin: 12/09/19 09:18 Dose: 2 puff Escitalopram Oxalate (Lexapro -) 5 mg PO DAILY [facility] Last Admin: 12/09/19 14:01 Dose: 5 mg Folic Acid (Folic Acid -) 1 mg PO DAILY [facility] Last Admin: 12/09/19 14:02 Dose: 1 mg Furosemide (Lasix -) 40 mg PO DAILY [facility] Last Admin: 12/09/19 10:00 Dose: Not Given Hydralazine HCl (Apresoline -) 10 mg PO BID [facility] Last Admin: 12/09/19 14:02 Dose: 10 mg Insulin Aspart (Novolog Vial Sliding Scale -) 1 vial SQ ACHS [facility]; Protocol Last Admin: 12/09/19 12:04 Dose: Not Given Isosorbide Mononitrate (Imdur -) 30 mg PO BID [facility] Last Admin: 12/09/19 14:02 Dose: 30 mg Metoprolol Succinate (Toprol Xl -) 25 mg PO DAILY [facility] Last Admin: 12/09/19 14:02 Dose: 25 mg Polysaccharide Iron Complex (Niferex-150 -) 150 mg PO DAILY [facility] Last Admin: 12/09/19 14:02 Dose: 150 mg Pramipexole Dihydrochloride (Mirapex -) 0.5 mg PO BID [facility] Last Admin: 12/09/19 14:09 Dose: 0.5 mg Pregabalin (Lyrica -) 25 mg PO BID [facility] Sitagliptin Phosphate (Januvia -) 25 mg PO DAILY@0700 [facility] Last Admin: 12/09/19 06:46 Dose: 25 mg - Objective Vital Signs: Vital Signs Temperature 98.2 F 12/09/19 13:47 Pulse Rate 98 H 12/09/19 13:47 Respiratory Rate 22 H 12/09/19 13:47 Blood Pressure 142/69 12/09/19 13:47 O2 Sat by Pulse Oximetry (%) 98 12/09/19 10:59 Constitutional: Yes: Calm Eyes: Yes: Conjunctiva Clear HENT: Yes: Atraumatic Neck: Yes: Supple Cardiovascular: Yes: S1, S2 Respiratory: Yes: CTA Bilaterally Gastrointestinal: Yes: Soft Genitourinary: Yes: WNL Musculoskeletal: Yes: WNL Edema: Yes Edema: LLE: 1+, RLE: 1+ Neurological: Yes: Oriented Psychiatric: Yes: Oriented Labs: CBC, BMP 12/08/19 10:15 12/08/19 10:15 Problem List - Problems (1) ESRD (end stage renal disease) Code(s): N18.6 - END STAGE RENAL DISEASE Assessment/Plan Current Medications Generic Name Dose Route Start Last Admin Trade Name Freq PRN Reason Stop Dose Admin Albuterol/Ipratropium 1 amp 12/07/19 20:00 12/09/19 11:58 Duoneb - NEB Not Given RQID ALDO Atorvastatin Calcium 20 mg 12/07/19 22:00 12/08/19 21:59 Lipitor - PO 20 mg HS ALDO Administration Budesonide/Formoterol Fumarate 2 puff 12/07/19 22:00 12/09/19 09:18 Symbicort 160/4.5mcg - IH 2 puff BID ALDO Administration Escitalopram Oxalate 5 mg 12/09/19 10:00 12/09/19 14:01 Lexapro - PO 5 mg DAILY ALDO Administration Folic Acid 1 mg 12/08/19 10:00 12/09/19 14:02 Folic Acid - PO 1 mg DAILY LADO Administration Furosemide 40 mg 12/08/19 10:00 12/09/19 10:00 Lasix - PO Not Given DAILY ALDO Hydralazine HCl 10 mg 12/08/19 22:00 12/09/19 14:02 Apresoline - PO 10 mg BID ALDO Administration Insulin Aspart 1 vial 12/07/19 22:00 12/09/19 12:04 Novolog Vial Sliding Scale - SQ Not Given ACHS ALDO Protocol Isosorbide Mononitrate 30 mg 12/07/19 22:00 12/09/19 14:02 Imdur - PO 30 mg BID ALDO Administration Metoprolol Succinate 25 mg 12/09/19 10:00 12/09/19 14:02 Toprol Xl - PO 25 mg DAILY ALDO Administration Polysaccharide Iron Complex 150 mg 12/09/19 11:45 12/09/19 14:02 Niferex-150 - PO 150 mg DAILY ALDO Administration Pramipexole Dihydrochloride 0.5 mg 12/08/19 22:00 12/09/19 14:09 Mirapex - PO 0.5 mg BID ALDO Administration Pregabalin 25 mg 12/09/19 22:00 Lyrica - PO BID ALDO Sitagliptin Phosphate 25 mg 12/08/19 12:20 12/09/19 06:46 Januvia - PO 25 mg DAILY@0700 ALDO Administration Impression 1. ESRD 2. anemia 3. CHF 4. HTN 5. DM 6. hyperlipidemia 7. anxiety 8. uterine cancer 9. hx GI bleed 10. COPD 11. breast cancer 12, restless leg syndrome Plan - HD today - will order HD for tomorrow - neuro input appreciated - vascular eval for edema, to evaluate permacath - follow heme onc
--- NOTE | 2019-12-09 16:55 | PN ---
Progress Note (short form) - Note Progress Note: no fevers receiving daily HD Vital Signs Period Temp Pulse Resp BP Sys/Padron Pulse Ox Last 24 Hr 98.2 F-98.6 F 80-109 18-22 142-181/63-108 94-98 cor-rrr lungs clear abd soft,nt ext +edema +left breast induration and swelling sonogram no abscess CBC, BMP 12/08/19 10:15 12/08/19 10:15 Microbiology 12/08/19 11:00 Stool Salmonella/Shigella Culture - Preliminary NO ENTERIC PATHOGENS, 24 HOURS, ON PRIMARY PLATES 12/08/19 11:00 Stool Yersinia Culture - Preliminary NO ENTERIC PATHOGENS, 24 HOURS, ON PRIMARY PLATES 12/08/19 11:00 Stool Vibrio Culture - Final NO GROWTH OF VIBRIO SPECIES OBTAINED 12/08/19 11:00 Stool Escherichia coli 0157 Culture - Final NO GROWTH OF E COLI 0157 OBTAINED a/p +left breast mass with induration, no erythema or warmth noted doubt cellulitis will need outpt mammogram and f/u with oncology please call back if needed Problem List - Problems (1) Fall at home Code(s): W19.XXXA - UNSPECIFIED FALL, INITIAL ENCOUNTER; Y92.009 - UNSP PLACE IN [email or web address]IT[facility] (PRIVATE[facility] RESIDENCE PLACE (2) Breast cancer Code(s): C50.919 - MALIGNANT NEOPLASM OF [facility] [email or web address]] SITE OF UNSPECIFIED FEMALE BREAST
--- NOTE | 2019-12-09 18:08 | PN ---
Progress Note (short form) - Note Progress Note: PAtient seen and examined Last Vital Signs Temp Pulse Resp BP Pulse Ox 98.5 F 98 H 22 H 148/74 98 12/09/19 16:00 12/09/19 13:47 12/09/19 16:00 12/09/19 16:00 12/09/19 10:59 Cor: RSR, No murmurs, No gallops Lungs: Clear to P&A Abd: Soft, Normal bowel sounds, No organomegaly Ext:No significant edema Labs/Meds reviewed A/P Right breast - s/p RT/ lumpectomy, multiple I & D's of breast abscesses- indurated , hyperpigmented - no obvious recurrence. Past history of triple negative breast ca T2, N1, Stage IIB with 2/21 + axillary nodes treated with taxotere and cytoxan, and RT in 2017. sonogram -- edematous right breast with no discrete abscess/mass Anemia - likely chronic disease. Check Fe++ studies , Epo level. Consider BEBE. ESRD/HD Fluid overload Recent fall COPD/Smoking CHF DM HBP HPL Will need outpatient follow up mammogram and follow up with breast surgery --- discussed this with patient
[2019-12-09] MEDS ORDERED: PROCHLORPERAZINE INJECTION 10 MG/2 ML VIAL IVPB PRN (19:42)
[2019-12-09] MEDS ORDERED: PROCHLORPERAZINE INJECTION 10 MG/2 ML VIAL IVPB SCH (19:45)
[2019-12-09] MEDS ORDERED: PANTOPRAZOLE SODIUM 40 MG VIAL IVPB SCH (19:45)
[2019-12-09] MEDS: PANTOPRAZOLE SODIUM 40 MG VIAL IVPUSH SCH (20:12)
[2019-12-09] MEDS ORDERED: PREGABALIN 25 MG CAPSULE PO SCH (22:00)
[2019-12-09] MEDS: ATORVASTATIN CA 20 MG TABLET (FP) PO SCH (22:04)
[2019-12-10] MEDS: INSULIN SLIDING SCALE (NOVOLOG) 1 VIAL SQ SCH ×4 (07:01→23:08)
[2019-12-10] MEDS: ALBUTEROL SO4 2.5/IPRATROPIUM 0.5 INH SOL 3 ML VIAL.NEB. NEB SCH ×4 (07:30→20:20)
[2019-12-10 08:48] LABS: BASO % 0.3 % (0-2.0); EOS % 1.3 % (0-4.5); HEMATOCRIT 25.4 % (32.4-45.2); HEMOGLOBIN 8.3 GM/dL (10.7-15.3); LYMPH % 6.6 % (8-40); MCH 31.3 pg (25.7-33.7); MCHC 32.7 g/dl (32.0-36.0); MEAN CELL VOLUME 95.8 fl (80-96); MEAN PLT VOLUME 8.9 fl (7.5-11.1); MONO % 12.4 % (3.8-10.2); NEUT % 79.4 % (42.8-82.8); PLATELET COUNT 123 K/MM3 (134-434); RBC 2.66 M/mm3 (3.60-5.2); RDW 18.9 % (11.6-15.6); WHITE BLOOD COUNT 7.3 K/mm3 (4.0-10.0)
[2019-12-10 09:08] LABS: ALBUMIN 3.2 g/dl (3.4-5.0); CALCIUM 8.4 mg/dL (8.5-10.1); CREATININE 3.6 mg/dL (0.55-1.3); POTASSIUM 3.5 mmol/L (3.5-5.1); TOT PROT 6.7 g/dl (6.4-8.2)
--- NOTE | 2019-12-10 12:26 | PN ---
Progress Note, Physician Chief Complaint: ESRD on HD Fall History of Present Illness: Previous notes and events reviewed awake and alert NAD complain of having dyspnea during HD and placed on Bipap denies chest pain or SOB positive C-diff - Current Medication List Current Medications: Active Medications Albuterol/Ipratropium (Duoneb -) 1 amp NEB RQID [facility] Last Admin: 12/10/19 11:48 Dose: Not Given Atorvastatin Calcium (Lipitor -) 20 mg PO HS [facility] Last Admin: 12/09/19 22:04 Dose: 20 mg Budesonide/Formoterol Fumarate (Symbicort 160/4.5mcg -) 2 puff IH BID [facility] Last Admin: 12/09/19 22:11 Dose: 2 puff Escitalopram Oxalate (Lexapro -) 5 mg PO DAILY [facility] Last Admin: 12/09/19 14:01 Dose: 5 mg Folic Acid (Folic Acid -) 1 mg PO DAILY [facility] Last Admin: 12/09/19 14:02 Dose: 1 mg Furosemide (Lasix -) 40 mg PO DAILY [facility] Last Admin: 12/09/19 10:00 Dose: Not Given Hydralazine HCl (Apresoline -) 10 mg PO BID [facility] Last Admin: 12/09/19 22:04 Dose: 10 mg Sodium Chloride (Normal Saline -) 250 mls @ 3,000 mls/hr IV PRN PRN PRN Reason: Hypotension during Dialysis Stop: 12/10/19 14:56 Insulin Aspart (Novolog Vial Sliding Scale -) 1 vial SQ ACHS [facility]; Protocol Last Admin: 12/10/19 07:01 Dose: Not Given Isosorbide Mononitrate (Imdur -) 30 mg PO BID [facility] Last Admin: 12/09/19 22:04 Dose: 30 mg Metoprolol Succinate (Toprol Xl -) 25 mg PO DAILY [facility] Last Admin: 12/09/19 14:02 Dose: 25 mg Pantoprazole Sodium (Protonix Iv) 40 mg IVPUSH DAILY [facility] Last Admin: 12/09/19 20:12 Dose: 40 mg Polysaccharide Iron Complex (Niferex-150 -) 150 mg PO DAILY [facility] Last Admin: 12/09/19 14:02 Dose: 150 mg Pramipexole Dihydrochloride (Mirapex -) 0.5 mg PO BID [facility] Last Admin: 01/23/20 22:05 Dose: 0.5 mg Pregabalin (Lyrica -) 25 mg PO HS [facility] Last Admin: 12/09/19 22:06 Dose: 25 mg Prochlorperazine Edisylate (Compazine Injection -) 5 mg IVPB Q8H PRN PRN Reason: NAUSEA Sitagliptin Phosphate (Januvia -) 25 mg PO DAILY@0700 [facility] Last Admin: 12/10/19 07:01 Dose: 25 mg - Objective Vital Signs: Vital Signs Temperature 98.2 F 12/10/19 10:05 Pulse Rate 80 12/10/19 11:40 Respiratory Rate 18 12/10/19 11:40 Blood Pressure 104/67 12/10/19 11:40 O2 Sat by Pulse Oximetry (%) 95 12/10/19 11:47 Constitutional: Yes: No Distress, Calm Eyes: Yes: Conjunctiva Clear HENT: Yes: Atraumatic Cardiovascular: Yes: Regular Rate and Rhythm Respiratory: Yes: Regular, Diminished, On BiPap Gastrointestinal: Yes: Normal Bowel Sounds, Soft Musculoskeletal: Yes: Muscle Weakness Extremities: Yes: WNL Edema: Yes Edema: LLE: 1+, RLE: 1+ Neurological: Yes: Alert, Lethargy Psychiatric: Yes: Alert Labs: CBC, BMP 12/10/19 08:00 12/10/19 08:00 Microbiology 12/09/19 21:15 Stool Clostridioides difficile Antigen - Final 12/09/19 21:15 Stool Clostridioides difficile Toxin Assay - Final 12/08/19 11:00 Stool Salmonella/Shigella Culture - Final NO GROWTH OF SALMONELLA OR SHIGELLA SPECIES OBTAINED 12/08/19 11:00 Stool Campylobacter Culture - Final NO GROWTH OF CAMPYLOBACTER SPECIES OBTAINED 12/08/19 11:00 Stool Yersinia Culture - Final NO GROWTH OF YERSINIA SPECIES OBTAINED 12/08/19 11:00 Stool Vibrio Culture - Final NO GROWTH OF VIBRIO SPECIES OBTAINED 12/08/19 11:00 Stool Escherichia coli 0157 Culture - Final NO GROWTH OF E COLI 0157 OBTAINED Problem List - Problems (1) Breast swelling Assessment/Plan: -Oncology on board -Breast US shows no evidence of mass or abscess -Mammography as outpatient Code(s): N63.0 - UNSPECIFIED LUMP IN UNSPECIFIED BREAST (2) ESRD (end stage renal disease) Assessment/Plan: -Renal on board -BUN/Cr 48.0/3.6 -monitor renal function -continue HD on scheduled days Code(s): N18.6 - END STAGE RENAL DISEASE (3) Fall at home Assessment/Plan: -Fall precatuion -PT -Head CT Scan negative Code(s): W19.XXXA - UNSPECIFIED FALL, INITIAL ENCOUNTER; Y92.009 - UNSP PLACE IN UNSP NON-[facility]ENCE [facility] (4) CHF (congestive heart failure) Assessment/Plan: -Furosemide daily -strict I&O -low Na diet -daily weights Code(s): I50.9 - HEART FAILURE, UNSPECIFIED (5) COPD (chronic obstructive pulmonary disease) Assessment/Plan: -Pulmonary on board -keep SpO2 >90% -O2 via NC -CXR shows cardiomegaly without evidence of acute lung disease -Symbicort -Bipap HS and prn Code(s): J44.9 - CHRONIC OBSTRUCTIVE PULMONARY DISEASE, UNSPECIFIED (6) Diabetes mellitus Assessment/Plan: -BGM ACHS -ISS -HgA1c 6.9% -diabetic diet Code(s): E11.9 - TYPE 2 DIABETES MELLITUS WITHOUT COMPLICATIONS (7) HTN (hypertension) Assessment/Plan: -Hydralazine, Isosorbide, Metoprolol -low Na diet Code(s): I10 - ESSENTIAL (PRIMARY) HYPERTENSION (8) C. difficile diarrhea Assessment/Plan: -stool is positive for C-diff -ID on board -afebrile -no leukocytosis Code(s): A04.72 - ENTEROCOLITIS D/T CLOSTRIDIUM DIFFICILE, NOT SPCF RECUR Assessment/Plan see problem list dvt ppx
--- NOTE | 2019-12-10 12:44 | PN ---
Progress Note (short form) - Note Progress Note: no fevers receiving daily HD reports 2 to 3 loose BMs daily- started at home very poor historian refused bipap overnight Vital Signs Period Temp Pulse Resp BP Sys/Padron Pulse Ox Last 24 Hr 98.2 F-98.7 F 70-98 18-22 104-168/60-96 95-95 cor-rrr lungs decreased bs at bases abd soft,nt ext +edema now on bipap-alert CBC, BMP 12/10/19 08:00 12/10/19 08:00 Microbiology 12/09/19 21:15 Stool Clostridioides difficile Antigen - Final-positive 12/09/19 21:15 Stool Clostridioides difficile Toxin Assay - Final-positive 12/08/19 11:00 Stool Salmonella/Shigella Culture - Final NO GROWTH OF SALMONELLA OR SHIGELLA SPECIES OBTAINED 12/08/19 11:00 Stool Campylobacter Culture - Final NO GROWTH OF CAMPYLOBACTER SPECIES OBTAINED 12/08/19 11:00 Stool Yersinia Culture - Final NO GROWTH OF YERSINIA SPECIES OBTAINED 12/08/19 11:00 Stool Vibrio Culture - Final NO GROWTH OF VIBRIO SPECIES OBTAINED 12/08/19 11:00 Stool Escherichia coli 0157 Culture - Final NO GROWTH OF E COLI 0157 OBTAINED a/p cdiff colitis- isolation, po vancomycin for 10 days +left breast mass with induration, no erythema or warmth noted doubt cellulitis will need outpt mammogram and f/u with oncology esrd/hd-currently daily HD [facility]- machine is broken at home d/w hospitalist Problem List - Problems (1) Fall at home Code(s): W19.XXXA - UNSPECIFIED FALL, INITIAL ENCOUNTER; Y92.009 - UNSP PLACE IN [facility] NON-[facility]IVATE[facility] RESIDENCE PLACE (2) Breast cancer Code(s): C50.919 - MALIGNANT NEOPLASM OF [facility] SITE OF UNSPECIFIED FEMALE BREAST
[2019-12-10] MEDS: metoPROLOL SUCCINATE 25 MG TAB.SR.24H (FP) PO SCH (14:05)
[2019-12-10] MEDS: FUROSEMIDE 40 MG TABLET (FP) PO SCH (14:05)
[2019-12-10] MEDS: PANTOPRAZOLE SODIUM 40 MG VIAL IVPUSH SCH (14:05)
[2019-12-10] MEDS: ESCITALOPRAM OXALATE 10 MG TABLET PO SCH (14:05)
[2019-12-10] MEDS: ISOSORBIDE MONONITRATE 30 MG TAB.SR.24H (FP) PO SCH ×2 (14:05→23:07)
[2019-12-10] MEDS: hydrALAZINE HCL 10 MG TABLET PO SCH ×2 (14:08→23:06)
[2019-12-10] MEDS: FOLIC ACID 1 MG TABLET (FP) PO SCH (14:08)
[2019-12-10] MEDS: PRAMIPEXOLE DIHYDROCHLORIDE 0.5 MG TABLET PO SCH ×2 (14:09→23:08)
[2019-12-10] MEDS: IRON POLYSACCHARIDES 150 MG CAPSULE PO SCH (14:09)
[2019-12-10] MEDS: BUDESONIDE/FORMETEROL FUMARATE 160/4.5 mcg INHALER IH SCH ×2 (14:12→23:10)
--- NOTE | 2019-12-10 16:08 | PN ---
Progress Note, Physician History of Present Illness: Pt seen and examined at bedside. She feels that the leg pain is improving. She still gets drowsy. - Current Medication List Current Medications: Active Medications Albuterol/Ipratropium (Duoneb -) 1 amp NEB RQID [facility] Last Admin: 12/10/19 11:48 Dose: Not Given Atorvastatin Calcium (Lipitor -) 20 mg PO [facility] Last Admin: 12/09/19 22:04 Dose: 20 mg Budesonide/Formoterol Fumarate (Symbicort 160/4.5mcg -) 2 puff IH BID [facility] Last Admin: 12/10/19 14:12 Dose: 2 puff Escitalopram Oxalate (Lexapro -) 5 mg PO DAILY [facility] Last Admin: 12/10/19 14:05 Dose: 5 mg Folic Acid (Folic Acid -) 1 mg PO DAILY [facility] Last Admin: 12/10/19 14:08 Dose: 1 mg Furosemide (Lasix -) 40 mg PO DAILY [facility] Last Admin: 12/10/19 14:05 Dose: 40 mg Hydralazine HCl (Apresoline -) 10 mg PO BID [facility] Last Admin: 12/10/19 14:08 Dose: 10 mg Sodium Chloride (Normal Saline -) 250 mls @ 3,000 mls/hr IV PRN PRN PRN Reason: Hypotension during Dialysis Stop: 12/10/19 14:56 Insulin Aspart (Novolog Vial Sliding Scale -) 1 vial SQ ACHS [facility]; Protocol Last Admin: 12/10/19 14:09 Dose: Not Given Isosorbide Mononitrate (Imdur -) 30 mg PO BID [facility] Last Admin: 12/10/19 14:05 Dose: 30 mg Metoprolol Succinate (Toprol Xl -) 25 mg PO DAILY [facility] Last Admin: 12/10/19 14:05 Dose: 25 mg Pantoprazole Sodium (Protonix Iv) 40 mg IVPUSH DAILY [facility] Last Admin: 12/10/19 14:05 Dose: 40 mg Polysaccharide Iron Complex (Niferex-150 -) 150 mg PO DAILY [facility] Last Admin: 12/10/19 14:09 Dose: 150 mg Pramipexole Dihydrochloride (Mirapex -) 0.5 mg PO BID [facility] Last Admin: 12/10/19 14:09 Dose: 0.5 mg Pregabalin (Lyrica -) 25 mg PO HS [facility] Last Admin: 12/09/19 22:06 Dose: 25 mg Prochlorperazine Edisylate (Compazine Injection -) 5 mg IVPB Q8H PRN PRN Reason: NAUSEA Sitagliptin Phosphate (Januvia -) 25 mg PO DAILY@0700 [facility] Last Admin: 12/10/19 07:01 Dose: 25 mg Vancomycin HCl (Vancomycin Oral Solution) 125 mg PO Q6HPO [facility] - Objective Vital Signs: Vital Signs Temperature 98.2 F 12/10/19 10:05 Pulse Rate 74 12/10/19 13:24 Respiratory Rate 18 12/10/19 13:24 Blood Pressure 158/70 12/10/19 13:24 O2 Sat by Pulse Oximetry (%) 95 12/10/19 11:47 Constitutional: Yes: Calm Eyes: Yes: Conjunctiva Clear HENT: Yes: Atraumatic Neck: Yes: Supple Cardiovascular: Yes: S1, S2 Respiratory: Yes: CTA Bilaterally Gastrointestinal: Yes: Soft Genitourinary: Yes: WNL Musculoskeletal: Yes: WNL Edema: Yes Edema: LLE: 1+, RLE: 1+ Neurological: Yes: Oriented Psychiatric: Yes: Oriented Labs: CBC, BMP 12/10/19 08:00 12/10/19 08:00 Problem List - Problems (1) ESRD (end stage renal disease) Code(s): N18.6 - END STAGE RENAL DISEASE Assessment/Plan Current Medications Generic Name Dose Route Start Last Admin Trade Name Freq PRN Reason Stop Dose Admin Albuterol/Ipratropium 1 amp 12/07/19 20:00 12/10/19 11:48 Duoneb - NEB Not Given RQID [facility] Atorvastatin Calcium 20 mg 12/07/19 22:00 12/09/19 22:04 Lipitor - PO 20 mg [facility] Administration Budesonide/Formoterol Fumarate 2 puff 12/07/19 22:00 12/10/19 14:12 Symbicort 160/4.5mcg - IH 2 puff BID [facility] Administration Escitalopram Oxalate 5 mg 12/09/19 10:00 12/10/19 14:05 Lexapro - PO 5 mg DAILY [facility] Administration Folic Acid 1 mg 12/08/19 10:00 12/10/19 14:08 Folic Acid - PO 1 mg DAILY [facility] Administration Furosemide 40 mg 12/08/19 10:00 12/10/19 14:05 Lasix - PO 40 mg DAILY [facility] Administration Hydralazine HCl 10 mg 12/08/19 22:00 12/10/19 14:08 Apresoline - PO 10 mg BID [facility] Administration Sodium Chloride 250 mls @ 3,000 mls/hr 12/09/19 14:56 Normal Saline - IV 12/10/19 14:56 PRN PRN Hypotension during Dialysis Insulin Aspart 1 vial 12/07/19 22:00 12/10/19 14:09 Novolog Vial Sliding Scale - SQ Not Given ACHS [facility] Protocol Isosorbide Mononitrate 30 mg 12/07/19 22:00 12/10/19 14:05 Imdur - PO 30 mg BID [facility] Administration Metoprolol Succinate 25 mg 12/09/19 10:00 12/10/19 14:05 Toprol Xl - PO 25 mg DAILY [facility] Administration Pantoprazole Sodium 40 mg 12/09/19 19:45 12/10/19 14:05 Protonix Iv IVPUSH 40 mg DAILY [facility] Administration Polysaccharide Iron Complex 150 mg 12/09/19 11:45 12/10/19 14:09 Niferex-150 - PO 150 mg DAILY [facility] Administration Pramipexole Dihydrochloride 0.5 mg 12/08/19 22:00 12/10/19 14:09 Mirapex - PO 0.5 mg BID [facility] Administration Pregabalin 25 mg 12/09/19 22:00 12/09/19 22:06 Lyrica - PO 25 mg HS [facility] Administration Prochlorperazine Edisylate 5 mg 12/09/19 19:42 Compazine Injection - IVPB Q8H PRN NAUSEA Sitagliptin Phosphate 25 mg 12/08/19 12:20 12/10/19 07:01 Januvia - PO 25 mg DAILY@0700 [facility] Administration Vancomycin HCl 125 mg 12/10/19 18:00 Vancomycin Oral Solution PO Q6HPO [facility] Impression 1. ESRD 2. anemia 3. CHF 4. HTN 5. DM 6. hyperlipidemia 7. anxiety 8. uterine cancer 9. hx GI bleed 10. COPD 11. breast cancer 12, restless leg syndrome Plan - HD today - will arrange for HD again tomorrow for fluid removal - vascular input pending - breast ultrasound done - vascular eval for edema, to evaluate permacath
[2019-12-10] MEDS ORDERED: SODIUM CHLORIDE 250 ML IV PRN (16:09)
--- NOTE | 2019-12-10 16:58 | PN ---
Progress Note (short form) - Note Progress Note: Patient seen and examined Diarrhea- c. difficile Breast ultrasound - no mass induration Last Vital Signs Temp Pulse Resp BP Pulse Ox 98.2 F 74 18 158/70 95 12/10/19 10:05 12/10/19 13:24 12/10/19 13:24 12/10/19 13:24 12/10/19 11:47 HEENT: CHRIS, EOM Intact Breasts: hyperpigmentation /induration right breast Cor: RSR, No murmurs, No gallops Lungs: scattered rhonchi Abd: Soft, Normal bowel sounds, No organomegaly Ext:No significant edema Skin: No rashes, Integument intact Impression: Hx of triple negative breast ca - s/p lumpectomy, RT, chemotherpay c.diff DM ESRD/HD HBP HPL Plan Out patient follow up with mammography
[2019-12-10] MEDS: VANCOMYCIN 250 MG/5 ML ORAL SOLUTION PO SCH ×2 (17:24→23:14)
--- NOTE | 2019-12-10 18:55 | PN ---
Progress Note (short form) - Note Progress Note: VAscular Surgery Right IJ permacath in place. Doing well. Minimal swelling in right arm. Axilla US shows some edema. If swelling increases, can change permacath to left side. Cath could be causing a outflow obstruction. Permacath working well. No elevated pressures. Armando Churchill DO
[2019-12-10 22:08] LABS: OXYCODONE BLOOD Negative ng/mL (Cutoff:5); PCP BLOOD Negative ng/mL (Cutoff:8)
[2019-12-10] MEDS: PREGABALIN 25 MG CAPSULE PO SCH (23:06)
[2019-12-10] MEDS: ATORVASTATIN CA 20 MG TABLET (FP) PO SCH (23:07)
[2019-12-11] MEDS: VANCOMYCIN 250 MG/5 ML ORAL SOLUTION PO SCH ×3 (06:49→17:37)
[2019-12-11] MEDS: ALBUTEROL SO4 2.5/IPRATROPIUM 0.5 INH SOL 3 ML VIAL.NEB. NEB SCH ×4 (07:30→20:00)
[2019-12-11] MEDS: INSULIN SLIDING SCALE (NOVOLOG) 1 VIAL SQ SCH ×4 (07:46→22:56)
[2019-12-11 09:46] LABS: HEMATOCRIT 26.1 % (32.4-45.2); HEMOGLOBIN 8.3 GM/dL (10.7-15.3); MEAN CELL VOLUME 96.9 fl (80-96); MEAN PLT VOLUME 9.7 fl (7.5-11.1); PLATELET COUNT 137 K/MM3 (134-434); RBC 2.69 M/mm3 (3.60-5.2); RDW 19.8 % (11.6-15.6)
[2019-12-11 10:12] LABS: ALBUMIN 3.1 g/dl (3.4-5.0); BILIRUBIN,TOTAL 0.7 mg/dL (0.2-1); CALCIUM 7.9 mg/dL (8.5-10.1); CREATININE 3.1 mg/dL (0.55-1.3); POTASSIUM 3.7 mmol/L (3.5-5.1); TOT PROT 6.4 g/dl (6.4-8.2)
[2019-12-11] MEDS ORDERED: ONDANSETRON *ODT* 4 MG TABLET SL PRN (12:16)
[2019-12-11] MEDS: PANTOPRAZOLE SODIUM 40 MG VIAL IVPUSH SCH (12:16)
--- NOTE | 2019-12-11 12:16 | PN ---
Progress Note, Physician Chief Complaint: AWAKE ALERT FEELING BETTER - Current Medication List Current Medications: Active Medications Albuterol/Ipratropium (Duoneb -) 1 amp NEB RQID [facility] Last Admin: 12/11/19 11:30 Dose: 1 amp Atorvastatin Calcium (Lipitor -) 20 mg PO HS [facility] Last Admin: 12/10/19 23:07 Dose: 20 mg Budesonide/Formoterol Fumarate (Symbicort 160/4.5mcg -) 2 puff IH BID [facility] Last Admin: 12/10/19 23:10 Dose: 2 puff Escitalopram Oxalate (Lexapro -) 5 mg PO DAILY [facility] Last Admin: 12/10/19 14:05 Dose: 5 mg Folic Acid (Folic Acid -) 1 mg PO DAILY [facility] Last Admin: 12/10/19 14:08 Dose: 1 mg Furosemide (Lasix -) 40 mg PO DAILY [facility] Last Admin: 12/10/19 14:05 Dose: 40 mg Hydralazine HCl (Apresoline -) 10 mg PO BID [facility] Last Admin: 12/10/19 23:06 Dose: 10 mg Sodium Chloride (Normal Saline -) 250 mls @ 3,000 mls/hr IV PRN PRN PRN Reason: Hypotension during Dialysis Stop: 12/11/19 16:10 Insulin Aspart (Novolog Vial Sliding Scale -) 1 vial SQ ACHS [facility]; Protocol Last Admin: 12/11/19 10:49 Dose: Not Given Isosorbide Mononitrate (Imdur -) 30 mg PO BID [facility] Last Admin: 12/10/19 23:07 Dose: 30 mg Metoprolol Succinate (Toprol Xl -) 25 mg PO DAILY [facility] Last Admin: 12/10/19 14:05 Dose: 25 mg Polysaccharide Iron Complex (Niferex-150 -) 150 mg PO DAILY [facility] Last Admin: 12/10/19 14:09 Dose: 150 mg Pramipexole Dihydrochloride (Mirapex -) 0.5 mg PO BID [facility] Last Admin: 12/10/19 23:08 Dose: 0.5 mg Pregabalin (Lyrica -) 25 mg PO [facility] Last Admin: 12/10/19 23:06 Dose: 25 mg Sitagliptin Phosphate (Januvia -) 25 mg PO DAILY@0700 [facility] Last Admin: 12/11/19 06:49 Dose: 25 mg Vancomycin HCl (Vancomycin Oral Solution) 125 mg PO Q6HPO [facility] Last Admin: 12/11/19 06:49 Dose: 125 mg - Objective Vital Signs: Vital Signs Temperature 97.6 F 12/11/19 06:00 Pulse Rate 68 12/11/19 10:10 Respiratory Rate 18 12/11/19 10:10 Blood Pressure 151/77 12/11/19 10:10 O2 Sat by Pulse Oximetry (%) 98 12/11/19 08:12 Constitutional: Yes: Mild Distress Cardiovascular: Yes: Regular Rate and Rhythm Respiratory: Yes: WNL Gastrointestinal: Yes: Soft Genitourinary: Yes: Other Musculoskeletal: Yes: Muscle Weakness Neurological: Yes: Loss of Sensation, Numbness, Paresthesia, Pre-Existing Deficit ...Motor Strength: LLE, RLE Labs: CBC, BMP 12/11/19 07:25 12/11/19 07:25 Problem List - Problems (1) ESRD (end stage renal disease) on dialysis Code(s): N18.6 - END STAGE RENAL DISEASE; Z99.2 - DEPENDENCE ON RENAL DIALYSIS (2) C. difficile diarrhea Code(s): A04.72 - ENTEROCOLITIS D/T CLOSTRIDIUM DIFFICILE, NOT SPCF RECUR (3) ESRD (end stage renal disease) Code(s): N18.6 - END STAGE RENAL DISEASE (4) Fall at home Code(s): W19.XXXA - UNSPECIFIED FALL, INITIAL ENCOUNTER; Y92.009 - UNSP PLACE IN UNSP NON-INSTITUT (PRIVATE) RESIDENCE PLACE (5) Leg pain Code(s): M79.606 - PAIN IN LEG, UNSPECIFIED Qualifiers: Laterality: bilateral Qualified Code(s): M79.604 - Pain in right leg; M79.605 - Pain in left leg (6) Acute exacerbation of chronic obstructive pulmonary disease (COPD) Code(s): J44.1 - CHRONIC OBSTRUCTIVE PULMONARY DISEASE W (ACUTE) EXACERBATION (7) Acute on chronic systolic (congestive) heart failure Code(s): I50.23 - ACUTE ON CHRONIC SYSTOLIC (CONGESTIVE) HEART FAILURE (8) Anemia Code(s): D64.9 - ANEMIA, UNSPECIFIED Assessment/Plan PAIN CONTROLLED ON LYRICA CHANGE PPI TO PO OOB TO CHAIR HD PER RENAL CDIFF ON VANCO CONTINUE
[2019-12-11] MEDS: metoPROLOL SUCCINATE 25 MG TAB.SR.24H (FP) PO SCH (12:17)
[2019-12-11] MEDS: FUROSEMIDE 40 MG TABLET (FP) PO SCH (12:17)
[2019-12-11] MEDS: ISOSORBIDE MONONITRATE 30 MG TAB.SR.24H (FP) PO SCH ×2 (12:18→22:47)
[2019-12-11] MEDS: FOLIC ACID 1 MG TABLET (FP) PO SCH (12:18)
[2019-12-11] MEDS: PRAMIPEXOLE DIHYDROCHLORIDE 0.5 MG TABLET PO SCH ×2 (12:18→22:43)
[2019-12-11] MEDS: ESCITALOPRAM OXALATE 10 MG TABLET PO SCH (12:18)
[2019-12-11] MEDS: hydrALAZINE HCL 10 MG TABLET PO SCH ×2 (12:19→22:40)
[2019-12-11] MEDS: IRON POLYSACCHARIDES 150 MG CAPSULE PO SCH (12:19)
[2019-12-11] MEDS: BUDESONIDE/FORMETEROL FUMARATE 160/4.5 mcg INHALER IH SCH ×2 (12:21→22:55)
--- NOTE | 2019-12-11 12:37 | PN ---
Progress Note (short form) - Note Progress Note: RENAL Pt is awake and alert diarrhea is better Last Vital Signs Temp Pulse Resp BP Pulse Ox 97.6 F 68 18 151/77 98 12/11/19 06:00 12/11/19 10:10 12/11/19 10:10 12/11/19 10:10 12/11/19 08:12 lungs decreased breath sounds cvs s1s2 rr abd soft ext no edema neuro a+ox3 CBC, BMP 12/11/19 07:25 12/11/19 07:25 Current Medications Generic Name Dose Route Start Last Admin Trade Name Freq PRN Reason Stop Dose Admin Albuterol/Ipratropium 1 amp 12/07/19 20:00 12/11/19 11:30 Duoneb - NEB 1 amp RQID [facility] Administration Atorvastatin Calcium 20 mg 12/07/19 22:00 12/10/19 23:07 Lipitor - PO 20 mg HS [facility] Administration Budesonide/Formoterol Fumarate 2 puff 12/07/19 22:00 12/11/19 12:21 Symbicort 160/4.5mcg - IH 2 puff BID [facility] Administration Escitalopram Oxalate 5 mg 12/09/19 10:00 12/11/19 12:18 Lexapro - PO 5 mg DAILY [facility] Administration Folic Acid 1 mg 12/08/19 10:00 12/11/19 12:18 Folic Acid - PO 1 mg DAILY [facility] Administration Furosemide 40 mg 12/08/19 10:00 12/11/19 12:17 Lasix - PO 40 mg DAILY [facility] Administration Hydralazine HCl 10 mg 12/08/19 22:00 12/11/19 12:19 Apresoline - PO 10 mg BID [facility] Administration Sodium Chloride 250 mls @ 3,000 mls/hr 12/10/19 16:09 Normal Saline - IV 12/11/19 16:10 PRN PRN Hypotension during Dialysis Insulin Aspart 1 vial 12/07/19 22:00 12/11/19 10:49 Novolog Vial Sliding Scale - SQ Not Given ACHS [facility] Protocol Isosorbide Mononitrate 30 mg 12/07/19 22:00 12/11/19 12:18 Imdur - PO 30 mg BID [facility] Administration Metoprolol Succinate 25 mg 12/09/19 10:00 12/11/19 12:17 Toprol Xl - PO 25 mg DAILY [facility] Administration Ondansetron HCl 4 mg 12/11/19 12:16 Zofran Odt - SL Q6H PRN NAUSEA AND/OR VOMITING Pantoprazole Sodium 40 mg 12/11/19 12:30 Protonix - PO DAILY [facility] Polysaccharide Iron Complex 150 mg 12/09/19 11:45 12/11/19 12:19 Niferex-150 - PO 150 mg DAILY [facility] Administration Pramipexole Dihydrochloride 0.5 mg 12/08/19 22:00 12/11/19 12:18 Mirapex - PO 0.5 mg BID [facility] Administration Pregabalin 25 mg 12/09/19 22:00 12/10/19 23:06 Lyrica - PO 25 mg HS [facility] Administration Sitagliptin Phosphate 25 mg 12/08/19 12:20 12/11/19 06:49 Januvia - PO 25 mg DAILY@0700 [facility] Administration Vancomycin HCl 125 mg 12/10/19 18:00 12/11/19 12:20 Vancomycin Oral Solution PO 125 mg Q6HPO [facility] Administration Impression 1. ESRD 2. anemia 3. CHF 4. HTN 5. DM 6. hyperlipidemia 7. anxiety 8. uterine cancer 9. hx GI bleed 10. COPD 11. breast cancer 12, restless leg syndrome Plan - was dialyzed today - vascular note read and appreciated - on darreno for meredith SALGADO
--- NOTE | 2019-12-11 13:10 | CON.PULM ---
Consult Consult Specialty:: PULMONARY Referred by:: AMY Reason for Consultation:: SOB - History of Present Illness Chief Complaint: SOB History of Present Illness: HPI: 64yo F COPD (not on home O2), ESRD (HD , , ; Last HD today), CHF, RLS sent in by Dr. Moore s/p fall last night with head trauma. Patient reports she was in her home, at 1:30AM woke up, fell down striking her head on the kitchen wall. Denies LOC, reports she had difficulty getting back up, called neighbor, then EMS so fire could help her get up. Reports chronically poor sleep, recently trialled on 150mg of some sedative for RLS with worsening fatigue. Patient falls asleep twice mid-encounter, once being caught in my arms. Resistant to staying in bed 2/2 RLS. Denies any recent illnesses. No cough , fevers, chills, dyrusia, diarrhea, body aches, sick contacts. Feels well aside from RLS / fatigue. 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 Cardio/Vascular: Yes: CHF, HTN, Hyperlipdemia, Pulmonary Hypertension Pulmonary: Yes: Asthma, Sleep Apnea (on BIPAP at night) Gastrointestinal: Yes: GI Bleed (see HPI), Other (had EGD and colono 12/31, ) Renal/: Yes: Renal Failure, Renal Inusuff, Other (hyperkalemia) ...LMP: 11/17/07 Endocrine: Yes: Diabetes Mellitus (uncontrolled) - Alcohol/Substance Use Hx Alcohol Use: No History of Substance Use: reports: None - Smoking History Smoking history: Never smoked Have you smoked in the past 12 months: Yes Aproximately how many cigarettes per day: 40 - Social History ADL: Independent Place of : [facility] History of Recent Travel: No Home Medications - Allergies Allergies/Adverse Reactions: Allergies Allergy/AdvReac Type Severity Reaction Status Date / Time No Known Allergies Allergy Verified 12/07/19 12:20 - Home Medications Home Medications: Ambulatory Orders Alprazolam 0.5 mg PO DAILY 12/04/19 Atorvastatin Ca [Lipitor] 20 mg PO HS 12/04/19 Folic Acid 1 mg PO DAILY 12/04/19 Furosemide [Lasix -] 40 mg PO DAILY 12/04/19 Isosorbide Mononitrate [Isosorbide Mononitrate ER] 30 mg PO BID 12/04/19 Metoprolol Succinate [Toprol Xl] 25 mg PO DAILY 12/04/19 Metoprolol Tartrate [Lopressor -] 50 mg PO BID 12/04/19 hydrALAZINE HCL [Apresoline -] 50 mg PO DAILY 12/04/19 Albuterol 0.083% Nebulizer Laura [Ventolin 0.083% Nebulizer Soln -] 1 amp NEB Q6H PRN amp 12/05/19 Albuterol 0.083% Nebulizer Laura [Ventolin 0.083% Nebulizer Soln -] 1 amp NEB Q6H PRN amp 12/05/19 Albuterol 2.5/Ipratropium 0.5 [Duoneb -] 1 amp NEB RQID amp 12/05/19 Albuterol 2.5/Ipratropium 0.5 [Duoneb -] 1 amp NEB RQID amp 12/05/19 Budesonide/Formeterol Fumarate [SYMBICORT 160/4.5mcg -] 2 puff IH BID inhaler 12/05/19 Budesonide/Formeterol Fumarate [SYMBICORT 160/4.5mcg -] 2 puff IH BID inhaler 12/05/19 Pramipexole Dihydrochloride [Mirapex -] 0.5 mg PO HS #31 tablet 12/05/19 Family Medical History Family History: Unremarkable Review of Systems - Review of Systems Constitutional: denies: Fever Neck: denies: Decreased ROM Cardiovascular: denies: Chest Pain Respiratory: reports: SOB on Exertion. denies: Cough Physical Exam Vital Sings: Vital Signs Temperature 97.6 F 12/11/19 06:00 Pulse Rate 68 12/11/19 10:10 Respiratory Rate 18 12/11/19 10:10 Blood Pressure 151/77 12/11/19 10:10 O2 Sat by Pulse Oximetry (%) 98 12/11/19 08:12 Constitutional: Yes: Calm Eyes: Yes: EOM Intact HENT: Yes: Normocephalic Neck: Yes: Trachea Midline Cardiovascular: Yes: Regular Rate and Rhythm, S1, S2 Respiratory: Yes: Rales (AT LEFT BASE POSTERIOR) Gastrointestinal: Yes: Abdomen, Obese Edema: LLE: 1+, RLE: 1+ Labs: CBC, BMP 12/11/19 07:25 12/11/19 07:25 ABG Results ABG pH 7.33 (7.35-7.45) L 12/08/19 06:55 ABG pCO2 at Pt Temp 47.8 mmHg (35-45) H 12/08/19 06:55 ABG pO2 at Pt Temp 86.0 mmHg (80-100) 12/08/19 06:55 ABG HCO3 24.8 mmol/L (22-27) 12/08/19 06:55 ABG O2 Sat (Measured) 96.3 % (95-98) 12/08/19 06:55 ABG O2 Content 11.8 % vol 12/08/19 06:55 ABG Base Excess -0.7 meq/l (-2-2) 12/08/19 06:55 Imaging - Results Chest X-ray: Report Reviewed, Image Reviewed Cat Scan: Report Reviewed Problem List - Problems (1) ESRD (end stage renal disease) Code(s): N18.6 - END STAGE RENAL DISEASE (2) Fall at home Code(s): W19.XXXA - UNSPECIFIED FALL, INITIAL ENCOUNTER; Y92.009 - UNSP PLACE IN UNSP NON-INSTITUT (PRIVATE) RESIDENCE PLACE (3) Anemia Code(s): D64.9 - ANEMIA, UNSPECIFIED (4) Asthma Code(s): J45.909 - UNSPECIFIED ASTHMA, UNCOMPLICATED (5) CAD (coronary artery disease) Code(s): I25.10 - ATHSCL HEART DISEASE OF [place] CORONARY ARTERY W/O ANG PCTRS Qualifiers: Coronary Disease-Associated Artery/Lesion type: [place] coronary artery Associated angina: with other forms of angina pectoris (6) CKD (chronic kidney disease) Code(s): N18.9 - CHRONIC KIDNEY DISEASE, UNSPECIFIED Qualifiers: Chronic kidney disease stage: unspecified stage Qualified Code(s): N18.9 - Chronic kidney disease, unspecified (7) COPD (chronic obstructive pulmonary disease) Code(s): J44.9 - CHRONIC OBSTRUCTIVE PULMONARY DISEASE, UNSPECIFIED Assessment/Plan COPD NOT IN ACUTE EXACERBATION FALL AT HOME /HEAD CT NEGATIVE ESRD/HD TIW MULTIPLE CO-MORBIDITIES LISTED CONTINUE O2/NIPPV HS AND PRN BRONCHODILATORS GLYCEMIC CONTROL WILL FOLLOW Kevin FELIZ MD
[2019-12-11] MEDS: PANTOPRAZOLE 40 MG TABLET PO SCH (14:05)
[2019-12-11] MEDS ORDERED: PT OWN MED DRAWER 7, Y5N ONE (20:52)
[2019-12-11] MEDS: ATORVASTATIN CA 20 MG TABLET (FP) PO SCH (22:39)
[2019-12-11] MEDS: PREGABALIN 25 MG CAPSULE PO SCH (22:39)
[2019-12-12] MEDS: VANCOMYCIN 250 MG/5 ML ORAL SOLUTION PO SCH ×4 (00:13→17:21)
[2019-12-12] MEDS: INSULIN SLIDING SCALE (NOVOLOG) 1 VIAL SQ SCH ×4 (06:47→21:47)
[2019-12-12] MEDS: ALBUTEROL SO4 2.5/IPRATROPIUM 0.5 INH SOL 3 ML VIAL.NEB. NEB SCH ×4 (07:25→20:39)
[2019-12-12] MEDS ORDERED: PT OWN MED DRAWER 7, Y5N ONE (07:54)
[2019-12-12] MEDS: FUROSEMIDE 40 MG TABLET (FP) PO SCH (12:06)
[2019-12-12] MEDS: PRAMIPEXOLE DIHYDROCHLORIDE 0.5 MG TABLET PO SCH ×2 (12:06→21:54)
[2019-12-12] MEDS: ESCITALOPRAM OXALATE 10 MG TABLET PO SCH (12:07)
[2019-12-12] MEDS: ISOSORBIDE MONONITRATE 30 MG TAB.SR.24H (FP) PO SCH ×2 (12:07→21:39)
[2019-12-12] MEDS: IRON POLYSACCHARIDES 150 MG CAPSULE PO SCH (12:07)
[2019-12-12] MEDS: PANTOPRAZOLE 40 MG TABLET PO SCH (12:07)
[2019-12-12] MEDS: hydrALAZINE HCL 10 MG TABLET PO SCH ×2 (12:07→21:39)
[2019-12-12] MEDS: metoPROLOL SUCCINATE 25 MG TAB.SR.24H (FP) PO SCH (12:07)
[2019-12-12] MEDS: FOLIC ACID 1 MG TABLET (FP) PO SCH (12:07)
[2019-12-12] MEDS: LIDOCAINE 5% TOPICAL PATCH TP SCH (12:08)
[2019-12-12] MEDS: BUDESONIDE/FORMETEROL FUMARATE 160/4.5 mcg INHALER IH SCH ×2 (12:08→21:41)
--- NOTE | 2019-12-12 12:29 | PN ---
Progress Note, Physician Chief Complaint: AWAKE ALERT C/O LEFT FLANK PAIN NO FEVER OR HEMATUREA - Current Medication List Current Medications: Active Medications Albuterol/Ipratropium (Duoneb -) 1 amp NEB RQID [facility] Last Admin: 12/12/19 11:19 Dose: 1 amp Atorvastatin Calcium (Lipitor -) 20 mg PO HS [facility] Last Admin: 12/11/19 22:39 Dose: 20 mg Budesonide/Formoterol Fumarate (Symbicort 160/4.5mcg -) 2 puff IH BID [facility] Last Admin: 12/12/19 12:08 Dose: 2 puff Escitalopram Oxalate (Lexapro -) 5 mg PO DAILY [facility] Last Admin: 12/12/19 12:07 Dose: 5 mg Folic Acid (Folic Acid -) 1 mg PO DAILY [facility] Last Admin: 12/12/19 12:07 Dose: 1 mg Furosemide (Lasix -) 40 mg PO DAILY [facility] Last Admin: 12/12/19 12:06 Dose: 40 mg Hydralazine HCl (Apresoline -) 10 mg PO BID [facility] Last Admin: 12/12/19 12:07 Dose: 10 mg Sodium Chloride (Normal Saline -) 250 mls @ 3,000 mls/hr IV PRN PRN PRN Reason: Hypotension during Dialysis Stop: 12/11/19 16:10 Insulin Aspart (Novolog Vial Sliding Scale -) 1 vial SQ ACHS [facility]; Protocol Last Admin: 12/12/19 12:23 Dose: Not Given Isosorbide Mononitrate (Imdur -) 30 mg PO BID [facility] Last Admin: 12/12/19 12:07 Dose: 30 mg Lidocaine (Lidoderm Patch -) 1 patch TP DAILY [facility] Last Admin: 12/12/19 12:08 Dose: 1 patch Metoprolol Succinate (Toprol Xl -) 25 mg PO DAILY [facility] Last Admin: 12/12/19 12:07 Dose: 25 mg Miscellaneous (Lidoderm Patch Removal) 1 each MC DAILY@2200 [facility] Ondansetron HCl (Zofran Odt -) 4 mg SL Q6H PRN PRN Reason: NAUSEA AND/OR VOMITING Pantoprazole Sodium (Protonix -) 40 mg PO DAILY [facility] Last Admin: 12/12/19 12:07 Dose: 40 mg Polysaccharide Iron Complex (Niferex-150 -) 150 mg PO DAILY [facility] Last Admin: 12/12/19 12:07 Dose: 150 mg Pramipexole Dihydrochloride (Mirapex -) 0.5 mg PO BID [facility] Last Admin: 12/12/19 12:06 Dose: 0.5 mg Pregabalin (Lyrica -) 25 mg PO HS [facility] Last Admin: 12/11/19 22:39 Dose: 25 mg Sitagliptin Phosphate (Januvia -) 25 mg PO DAILY@0700 [facility] Last Admin: 12/12/19 06:47 Dose: 25 mg Vancomycin HCl (Vancomycin Oral Solution) 125 mg PO Q6HPO [facility] Last Admin: 12/12/19 12:09 Dose: 125 mg - Objective Vital Signs: Vital Signs Temperature 97.2 F L 12/12/19 06:00 Pulse Rate 66 12/12/19 06:00 Respiratory Rate 12/12/19 06:00 Blood Pressure 160/65 12/12/19 06:00 O2 Sat by Pulse Oximetry (%) 91 L 12/12/19 08:14 Constitutional: Yes: Mild Distress Cardiovascular: Yes: Regular Rate and Rhythm Respiratory: Yes: CTA Bilaterally Gastrointestinal: Yes: Soft Genitourinary: Yes: CVA Tenderness - Left Musculoskeletal: Yes: Muscle Weakness Labs: CBC, BMP 12/11/19 07:25 12/11/19 07:25 Problem List - Problems (1) ESRD (end stage renal disease) on dialysis Code(s): N18.6 - END STAGE RENAL DISEASE; Z99.2 - DEPENDENCE ON RENAL DIALYSIS (2) C. difficile diarrhea Code(s): A04.72 - ENTEROCOLITIS D/T CLOSTRIDIUM DIFFICILE, NOT SPCF RECUR (3) ESRD (end stage renal disease) Code(s): N18.6 - END STAGE RENAL DISEASE (4) Fall at home Code(s): W19.XXXA - UNSPECIFIED FALL, INITIAL ENCOUNTER; Y92.009 - UNSP PLACE IN UNSP NON-INSTITUT (PRIVATE) RESIDENCE PLACE (5) Leg pain Code(s): M79.606 - PAIN IN LEG, UNSPECIFIED Qualifiers: Laterality: bilateral Qualified Code(s): M79.604 - Pain in right leg; M79.605 - Pain in left leg (6) Acute exacerbation of chronic obstructive pulmonary disease (COPD) Code(s): J44.1 - CHRONIC OBSTRUCTIVE PULMONARY DISEASE W (ACUTE) EXACERBATION (7) Acute on chronic systolic (congestive) heart failure Code(s): I50.23 - ACUTE ON CHRONIC SYSTOLIC (CONGESTIVE) HEART FAILURE (8) Anemia Code(s): D64.9 - ANEMIA, UNSPECIFIED Assessment/Plan KUB BEDSIDE EVALUATE LEFT FLANK PAIN CHECK UA FOR HEMATUREA ESRD ON HD COPD STABLE PAIN CONTROL LIDODERM PATCH
[2019-12-12] MEDS: ATORVASTATIN CA 20 MG TABLET (FP) PO SCH (21:38)
[2019-12-12] MEDS: PREGABALIN 25 MG CAPSULE PO SCH (21:39)
[2019-12-12] MEDS: LIDOCAINE PATCH REMOVAL MC SCH (21:51)
[2019-12-13] MEDS: VANCOMYCIN 250 MG/5 ML ORAL SOLUTION PO SCH ×5 (00:03→23:44)
[2019-12-13] MEDS: INSULIN SLIDING SCALE (NOVOLOG) 1 VIAL SQ SCH ×4 (06:53→23:54)
[2019-12-13] MEDS: ALBUTEROL SO4 2.5/IPRATROPIUM 0.5 INH SOL 3 ML VIAL.NEB. NEB SCH ×4 (07:30→21:00)
[2019-12-13] MEDS ORDERED: PT OWN MED DRAWER 7, Y5N ONE ×3 (09:14→23:28)
[2019-12-13] MEDS: ESCITALOPRAM OXALATE 10 MG TABLET PO SCH (10:52)
[2019-12-13] MEDS: ISOSORBIDE MONONITRATE 30 MG TAB.SR.24H (FP) PO SCH ×2 (10:52→23:42)
[2019-12-13] MEDS: FUROSEMIDE 40 MG TABLET (FP) PO SCH (10:52)
[2019-12-13] MEDS: FOLIC ACID 1 MG TABLET (FP) PO SCH (10:52)
[2019-12-13] MEDS: PRAMIPEXOLE DIHYDROCHLORIDE 0.5 MG TABLET PO SCH ×2 (10:53→23:43)
[2019-12-13] MEDS: hydrALAZINE HCL 10 MG TABLET PO SCH ×2 (10:53→23:42)
[2019-12-13] MEDS: IRON POLYSACCHARIDES 150 MG CAPSULE PO SCH (10:53)
[2019-12-13] MEDS: metoPROLOL SUCCINATE 25 MG TAB.SR.24H (FP) PO SCH (10:53)
[2019-12-13] MEDS: PANTOPRAZOLE 40 MG TABLET PO SCH (10:53)
[2019-12-13] MEDS: BUDESONIDE/FORMETEROL FUMARATE 160/4.5 mcg INHALER IH SCH ×2 (10:54→23:54)
[2019-12-13] MEDS: LIDOCAINE 5% TOPICAL PATCH TP SCH (10:54)
--- NOTE | 2019-12-13 11:18 | PN ---
Progress Note, Physician Chief Complaint: Fall, Fatigue, Missed ESRD History of Present Illness: NAD Seen in dialysis Lethargic, sleeping while talking Leg cramps improved on Lyrica+ pramipexole State she fell because she felt weak in her legs Now + Cdiff, on PO vanco Seen by Vascular sx for Right axillary/breast edema, which has improved BL thigh edema improved C/O excruciating left flank pain, unable to turn AXR negative As per patient, she denies any hematuria Unable to give urine sample 2/2 to diarrhea - Current Medication List Current Medications: Active Medications Albuterol/Ipratropium (Duoneb -) 1 amp NEB RQID [facility] Last Admin: 12/13/19 07:30 Dose: 1 amp Atorvastatin Calcium (Lipitor -) 20 mg PO HS [facility] Last Admin: 12/12/19 21:38 Dose: 20 mg Budesonide/Formoterol Fumarate (Symbicort 160/4.5mcg -) 2 puff IH BID [facility] Last Admin: 12/13/19 10:54 Dose: 2 puff Escitalopram Oxalate (Lexapro -) 5 mg PO DAILY [facility] Last Admin: 12/13/19 10:52 Dose: 5 mg Folic Acid (Folic Acid -) 1 mg PO DAILY [facility] Last Admin: 12/13/19 10:52 Dose: 1 mg Furosemide (Lasix -) 40 mg PO DAILY [facility] Last Admin: 12/13/19 10:52 Dose: 40 mg Hydralazine HCl (Apresoline -) 10 mg PO BID [facility] Last Admin: 12/13/19 10:53 Dose: 10 mg Sodium Chloride (Normal Saline -) 250 mls @ 3,000 mls/hr IV PRN PRN PRN Reason: Hypotension during Dialysis Stop: 12/11/19 16:10 Insulin Aspart (Novolog Vial Sliding Scale -) 1 vial SQ ACHS [facility]; Protocol Last Admin: 12/13/19 06:53 Dose: Not Given Isosorbide Mononitrate (Imdur -) 30 mg PO BID [facility] Last Admin: 12/13/19 10:52 Dose: 30 mg Lidocaine (Lidoderm Patch -) 1 patch TP DAILY [facility] Last Admin: 12/13/19 10:54 Dose: 1 patch Metoprolol Succinate (Toprol Xl -) 25 mg PO DAILY [facility] Last Admin: 01/27/20 10:53 Dose: 25 mg Miscellaneous (Lidoderm Patch Removal) 1 each MC DAILY@2200 [facility] Last Admin: 12/12/19 21:51 Dose: 1 each Ondansetron HCl (Zofran Odt -) 4 mg SL Q6H PRN PRN Reason: NAUSEA AND/OR VOMITING Pantoprazole Sodium (Protonix -) 40 mg PO DAILY [facility] Last Admin: 12/13/19 10:53 Dose: 40 mg Polysaccharide Iron Complex (Niferex-150 -) 150 mg PO DAILY [facility] Last Admin: 12/13/19 10:53 Dose: 150 mg Pramipexole Dihydrochloride (Mirapex -) 0.5 mg PO BID [facility] Last Admin: 12/13/19 10:53 Dose: 0.5 mg Pregabalin (Lyrica -) 25 mg PO HS [facility] Last Admin: 12/12/19 21:39 Dose: 25 mg Sitagliptin Phosphate (Januvia -) 25 mg PO DAILY@0700 [facility] Last Admin: 12/13/19 06:52 Dose: 25 mg Vancomycin HCl (Vancomycin Oral Solution) 125 mg PO Q6HPO [facility] Last Admin: 12/13/19 06:52 Dose: 125 mg - Objective Vital Signs: Vital Signs Temperature 98.2 F 12/13/19 11:00 Pulse Rate 77 12/13/19 11:00 Respiratory Rate 20 12/13/19 11:00 Blood Pressure 132/56 L 12/13/19 11:00 O2 Sat by Pulse Oximetry (%) 99 12/13/19 07:55 Constitutional: Yes: Well Nourished, No Distress, Calm, Obese Cardiovascular: Yes: Regular Rate and Rhythm Respiratory: Yes: Regular Gastrointestinal: Yes: Normal Bowel Sounds, Soft, Abdomen, Obese, Tenderness ( LUQ,LLQ) Breast(s): Yes: Other (right breast edema/pain) Musculoskeletal: Yes: WNL Extremities: Yes: WNL Edema: Yes (BL thighs) Edema: LLE: Trace, RLE: Trace Peripheral Pulses WNL: Yes Neurological: Yes: Alert, Oriented Psychiatric: Yes: Alert, Oriented Labs: CBC, BMP 12/11/19 07:25 12/11/19 07:25 Problem List - Problems (1) ESRD (end stage renal disease) Assessment/Plan: -Nephrology consult -HD:MWF Problems reviewed: Yes Code(s): N18.6 - END STAGE RENAL DISEASE (2) Fall at home Assessment/Plan: -Physical therapy eval -Safe/fall precautions -EKG unremarkable -CT head negative Problems reviewed: Yes Code(s): W19.XXXA - UNSPECIFIED FALL, INITIAL ENCOUNTER; Y92.009 - UNSP PLACE IN [facility]SP [facility] (3) Fatigue Assessment/Plan: -multifactoria -moderately lethargic -would keep lyrica once a day at bedtime -Seen by neurology -Restarted on pramipexole-increased dosage, if continues to be lethargic- may decrease or d/c if neurology agrees. Problems reviewed: Yes Code(s): R53.83 - OTHER FATIGUE Qualifiers: Fatigue type: unspecified Qualified Code(s): R53.83 - Other fatigue (4) Acute on chronic systolic (congestive) heart failure Assessment/Plan: -Diuretics as per nephrology Problems reviewed: Yes Code(s): I50.23 - ACUTE ON CHRONIC SYSTOLIC (CONGESTIVE) HEART FAILURE (5) CAD (coronary artery disease) Assessment/Plan: -Continue atorvastatin 20 mg po HS Problems reviewed: Yes Code(s): I25.10 - ATHSCL HEART DISEASE OF [place] CORONARY ARTERY W/O ANG PCTRS Qualifiers: Coronary Disease-Associated Artery/Lesion type: [place] coronary artery Associated angina: with other forms of angina pectoris (6) Diabetes mellitus Assessment/Plan: -Last A1c at 7.1 in 08/2019 -A1c at 6.9 -BGM AC HS -ISS -Renal diabetic diet Problems reviewed: Yes Code(s): E11.9 - TYPE 2 DIABETES MELLITUS WITHOUT COMPLICATIONS (7) Breast swelling Assessment/Plan: -right breast -improved -Seen by Oncology to r/o recurrence of breast ca -U/S breast negative for any obvious masses -Will need mammogram O/p -Also seen by Vascular surgery Code(s): N63.0 - UNSPECIFIED LUMP IN UNSPECIFIED BREAST (8) Anemia Assessment/Plan: -multifactorial -DAVID vs CKD -Iron % low -Started iron polysaccharide 150 mg po daily -monitor labs Problems reviewed: Yes Code(s): D64.9 - ANEMIA, UNSPECIFIED (9) C. difficile diarrhea Assessment/Plan: -PO Vanco Q6H -Contact isolation Problems reviewed: Yes Code(s): A04.72 - ENTEROCOLITIS D/T CLOSTRIDIUM DIFFICILE, NOT SPCF RECUR (10) Abdominal pain Assessment/Plan: -CT abd/pelvis without contrast stat -acetaminophen to start off with for pain control Problems reviewed: Yes Code(s): R10.9 - UNSPECIFIED ABDOMINAL PAIN Assessment/Plan see problem list PT
--- NOTE | 2019-12-13 12:53 | PN ---
Progress Note (short form) - Note Progress Note: PULMONARY Denies shortness of breath, cough. c/o left sided midaxillary pain. Vital Signs Period Temp Pulse Resp BP Sys/Padron Pulse Ox Last 24 Hr 98.1 F-98.3 F 71-79 20-20 113-150/56-77 95-99 Gen: NAD at rest Heart: RRR Lung: decreased breath sounds at the bases Abd: soft, nontender Ext: no edema CBC, BMP 12/11/19 07:25 12/11/19 07:25 Active Medications Acetaminophen (Tylenol -) 650 mg PO Q6H PRN PRN Reason: PAIN Albuterol/Ipratropium (Duoneb -) 1 amp NEB RQID [facility] Last Admin: 12/13/19 11:26 Dose: 1 amp Atorvastatin Calcium (Lipitor -) 20 mg PO HS [facility] Last Admin: 12/12/19 21:38 Dose: 20 mg Budesonide/Formoterol Fumarate (Symbicort 160/4.5mcg -) 2 puff IH BID [facility] Last Admin: 12/13/19 10:54 Dose: 2 puff Escitalopram Oxalate (Lexapro -) 5 mg PO DAILY [facility] Last Admin: 12/13/19 10:52 Dose: 5 mg Folic Acid (Folic Acid -) 1 mg PO DAILY [facility] Last Admin: 12/13/19 10:52 Dose: 1 mg Furosemide (Lasix -) 40 mg PO DAILY [facility] Last Admin: 12/13/19 10:52 Dose: 40 mg Hydralazine HCl (Apresoline -) 10 mg PO BID [facility] Last Admin: 12/13/19 10:53 Dose: 10 mg Sodium Chloride (Normal Saline -) 250 mls @ 3,000 mls/hr IV PRN PRN PRN Reason: Hypotension during Dialysis Stop: 12/11/19 16:10 Insulin Aspart (Novolog Vial Sliding Scale -) 1 vial SQ ACHS [facility]; Protocol Last Admin: 12/13/19 12:31 Dose: Not Given Isosorbide Mononitrate (Imdur -) 30 mg PO BID [facility] Last Admin: 12/13/19 10:52 Dose: 30 mg Lidocaine (Lidoderm Patch -) 1 patch TP DAILY [facility] Last Admin: 12/13/19 10:54 Dose: 1 patch Metoprolol Succinate (Toprol Xl -) 25 mg PO DAILY [facility] Last Admin: 12/13/19 10:53 Dose: 25 mg Miscellaneous (Lidoderm Patch Removal) 1 each MC DAILY@2200 [facility] Last Admin: 12/12/19 21:51 Dose: 1 each Ondansetron HCl (Zofran Odt -) 4 mg SL Q6H PRN PRN Reason: NAUSEA AND/OR VOMITING Pantoprazole Sodium (Protonix -) 40 mg PO DAILY [facility] Last Admin: 12/13/19 10:53 Dose: 40 mg Polysaccharide Iron Complex (Niferex-150 -) 150 mg PO DAILY [facility] Last Admin: 12/13/19 10:53 Dose: 150 mg Pramipexole Dihydrochloride (Mirapex -) 0.5 mg PO BID [facility] Last Admin: 12/13/19 10:53 Dose: 0.5 mg Pregabalin (Lyrica -) 25 mg PO HS [facility] Last Admin: 12/12/19 21:39 Dose: 25 mg Sitagliptin Phosphate (Januvia -) 25 mg PO DAILY@0700 [facility] Last Admin: 12/13/19 06:52 Dose: 25 mg Vancomycin HCl (Vancomycin Oral Solution) 125 mg PO Q6HPO [facility] Last Admin: 12/13/19 06:52 Dose: 125 mg A/P C Diff Colitis ESRD on HD LV Diastolic Dysfunction COPD Obstructive Sleep Apnea Restless Leg Syndrome HTN DM Hyperlipidemia Breast CA Anemia - continue antibiotics for C diff - inhaled bronchodilators - O2 to keep SpO2 >90% - CPAP at night and PRN during day - HD per renal - DVT prophylaxis
[2019-12-13] MEDS: ACETAMINOPHEN 325 MG TABLET (FP) PO PRN ×2 (13:17→21:13)
[2019-12-13 13:20] LABS: BASO % 0.2 % (0-2.0); EOS % 2.1 % (0-4.5); HEMATOCRIT 26.7 % (32.4-45.2); HEMOGLOBIN 8.6 GM/dL (10.7-15.3); LYMPH % 4.9 % (8-40); MCH 31.2 pg (25.7-33.7); MCHC 32.1 g/dl (32.0-36.0); MEAN CELL VOLUME 97.2 fl (80-96); MEAN PLT VOLUME 9.5 fl (7.5-11.1); MONO % 13.6 % (3.8-10.2); NEUT % 79.2 % (42.8-82.8); PLATELET COUNT 142 K/MM3 (134-434); RBC 2.75 M/mm3 (3.60-5.2); RDW 18.8 % (11.6-15.6); WHITE BLOOD COUNT 6.5 K/mm3 (4.0-10.0)
[2019-12-13 14:04] LABS: ALBUMIN 3.4 g/dl (3.4-5.0); BILIRUBIN,TOTAL 0.9 mg/dL (0.2-1); BLOOD UREA NITROGEN 32.9 mg/dL (7-18); CALCIUM 8.7 mg/dL (8.5-10.1); CREATININE 4.1 mg/dL (0.55-1.3); POTASSIUM 3.6 mmol/L (3.5-5.1)
--- NOTE | 2019-12-13 15:18 | PN ---
Progress Note, Physician History of Present Illness: Pt seen and examined at bedside. She denies shortness of breath. She feels that her lower ext edema is improved. - Current Medication List Current Medications: Active Medications Acetaminophen (Tylenol -) 650 mg PO Q6H PRN PRN Reason: PAIN Last Admin: 12/13/19 13:17 Dose: 650 mg Albuterol/Ipratropium (Duoneb -) 1 amp NEB RQID [facility] Last Admin: 12/13/19 11:26 Dose: 1 amp Atorvastatin Calcium (Lipitor -) 20 mg PO HS [facility] Last Admin: 12/12/19 21:38 Dose: 20 mg Budesonide/Formoterol Fumarate (Symbicort 160/4.5mcg -) 2 puff IH BID [facility] Last Admin: 12/13/19 10:54 Dose: 2 puff Escitalopram Oxalate (Lexapro -) 5 mg PO DAILY [facility] Last Admin: 12/13/19 10:52 Dose: 5 mg Folic Acid (Folic Acid -) 1 mg PO DAILY [facility] Last Admin: 12/13/19 10:52 Dose: 1 mg Furosemide (Lasix -) 40 mg PO DAILY [facility] Last Admin: 12/13/19 10:52 Dose: 40 mg Hydralazine HCl (Apresoline -) 10 mg PO BID [facility] Last Admin: 12/13/19 10:53 Dose: 10 mg Sodium Chloride (Normal Saline -) 250 mls @ 3,000 mls/hr IV PRN PRN PRN Reason: Hypotension during Dialysis Stop: 12/11/19 16:10 Insulin Aspart (Novolog Vial Sliding Scale -) 1 vial SQ ACHS [facility]; Protocol Last Admin: 12/13/19 12:31 Dose: Not Given Isosorbide Mononitrate (Imdur -) 30 mg PO BID [facility] Last Admin: 12/13/19 10:52 Dose: 30 mg Lidocaine (Lidoderm Patch -) 1 patch TP DAILY [facility] Last Admin: 12/13/19 10:54 Dose: 1 patch Metoprolol Succinate (Toprol Xl -) 25 mg PO DAILY [facility] Last Admin: 12/13/19 10:53 Dose: 25 mg Miscellaneous (Lidoderm Patch Removal) 1 each MC DAILY@2200 [facility] Last Admin: 12/12/19 21:51 Dose: 1 each Ondansetron HCl (Zofran Odt -) 4 mg SL Q6H PRN PRN Reason: NAUSEA AND/OR VOMITING Pantoprazole Sodium (Protonix -) 40 mg PO DAILY [facility] Last Admin: 12/13/19 10:53 Dose: 40 mg Polysaccharide Iron Complex (Niferex-150 -) 150 mg PO DAILY [facility] Last Admin: 12/13/19 10:53 Dose: 150 mg Pramipexole Dihydrochloride (Mirapex -) 0.5 mg PO BID [facility] Last Admin: 12/13/19 10:53 Dose: 0.5 mg Pregabalin (Lyrica -) 25 mg PO HS [facility] Last Admin: 12/12/19 21:39 Dose: 25 mg Sitagliptin Phosphate (Januvia -) 25 mg PO DAILY@0700 [facility] Last Admin: 12/13/19 06:52 Dose: 25 mg Vancomycin HCl (Vancomycin Oral Solution) 125 mg PO Q6HPO [facility] Last Admin: 12/13/19 13:00 Dose: 125 mg - Objective Vital Signs: Vital Signs Temperature 98.2 F 12/13/19 11:00 Pulse Rate 77 12/13/19 11:00 Respiratory Rate 20 12/13/19 11:00 Blood Pressure 132/56 L 12/13/19 11:00 O2 Sat by Pulse Oximetry (%) 99 12/13/19 07:55 Constitutional: Yes: Anxious Eyes: Yes: Conjunctiva Clear HENT: Yes: Atraumatic Neck: Yes: Supple Cardiovascular: Yes: S1, S2 Respiratory: Yes: CTA Bilaterally Gastrointestinal: Yes: Soft Genitourinary: Yes: WNL Musculoskeletal: Yes: WNL Edema: Yes Edema: LLE: 2+, RLE: 2+ Neurological: Yes: Oriented Psychiatric: Yes: Oriented Labs: CBC, BMP 12/13/19 12:55 12/13/19 12:55 Problem List - Problems (1) ESRD (end stage renal disease) Code(s): N18.6 - END STAGE RENAL DISEASE Assessment/Plan Current Medications Generic Name Dose Route Start Last Admin Trade Name Freq PRN Reason Stop Dose Admin Acetaminophen 650 mg 12/13/19 12:14 12/13/19 13:17 Tylenol - PO 650 mg Q6H PRN Administration PAIN Albuterol/Ipratropium 1 amp 12/07/19 20:00 12/13/19 11:26 Duoneb - NEB 1 amp RQID [facility] Administration Atorvastatin Calcium 20 mg 12/07/19 22:00 12/12/19 21:38 Lipitor - PO 20 mg HS [facility] Administration Budesonide/Formoterol Fumarate 2 puff 12/07/19 22:00 12/13/19 10:54 Symbicort 160/4.5mcg - IH 2 puff BID [facility] Administration Escitalopram Oxalate 5 mg 12/09/19 10:00 12/13/19 10:52 Lexapro - PO 5 mg DAILY [facility] Administration Folic Acid 1 mg 12/08/19 10:00 12/13/19 10:52 Folic Acid - PO 1 mg DAILY [facility] Administration Furosemide 40 mg 12/08/19 10:00 12/13/19 10:52 Lasix - PO 40 mg DAILY [facility] Administration Hydralazine HCl 10 mg 12/08/19 22:00 12/13/19 10:53 Apresoline - PO 10 mg BID [facility] Administration Sodium Chloride 250 mls @ 3,000 mls/hr 12/10/19 16:09 Normal Saline - IV 12/11/19 16:10 PRN PRN Hypotension during Dialysis Insulin Aspart 1 vial 12/07/19 22:00 12/13/19 12:31 Novolog Vial Sliding Scale - SQ Not Given ACHS [facility] Protocol Isosorbide Mononitrate 30 mg 12/07/19 22:00 12/13/19 10:52 Imdur - PO 30 mg BID [facility] Administration Lidocaine 1 patch 12/12/19 11:00 12/13/19 10:54 Lidoderm Patch - TP 1 patch DAILY [facility] Administration Metoprolol Succinate 25 mg 12/09/19 10:00 12/13/19 10:53 Toprol Xl - PO 25 mg DAILY [facility] Administration Miscellaneous 1 each 12/12/19 22:00 12/12/19 21:51 Lidoderm Patch Removal MC 1 each DAILY@2200 [facility] Administration Ondansetron HCl 4 mg 12/11/19 12:16 Zofran Odt - SL Q6H PRN NAUSEA AND/OR VOMITING Pantoprazole Sodium 40 mg 12/11/19 12:30 12/13/19 10:53 Protonix - PO 40 mg DAILY [facility] Administration Polysaccharide Iron Complex 150 mg 12/09/19 11:45 12/13/19 10:53 Niferex-150 - PO 150 mg DAILY [facility] Administration Pramipexole Dihydrochloride 0.5 mg 12/08/19 22:00 12/13/19 10:53 Mirapex - PO 0.5 mg BID [facility] Administration Pregabalin 25 mg 12/09/19 22:00 12/12/19 21:39 Lyrica - PO 25 mg HS [facility] Administration Sitagliptin Phosphate 25 mg 12/08/19 12:20 12/13/19 06:52 Januvia - PO 25 mg DAILY@0700 [facility] Administration Vancomycin HCl 125 mg 12/10/19 18:00 12/13/19 13:00 Vancomycin Oral Solution PO 125 mg Q6HPO [facility] Administration Impression 1. ESRD 2. anemia 3. CHF 4. HTN 5. DM 6. hyperlipidemia 7. anxiety 8. uterine cancer 9. hx GI bleed 10. COPD 11. breast cancer 12. restless leg syndrome Plan - HD tomorrow - renal diet - volume status improving - pt feels leg cramps are getting better
[2019-12-13] MEDS ORDERED: SODIUM CHLORIDE 250 ML IV PRN (15:19)
--- NOTE | 2019-12-13 16:15 | PN ---
Progress Note (short form) - Note Progress Note: 64yo F s/p permacath placement with subsequent Rt arm swelling. Pt denies any arm swelling at this time. Pt states she had HD on Friday without issue. Pt feels swelling has improved. Denies Rt arm pain. Last Vital Signs Temp Pulse Resp BP Pulse Ox 98.1 F 76 20 100/51 L 99 12/13/19 14:00 12/13/19 14:00 12/13/19 14:00 12/13/19 14:00 12/13/19 07:55 CBC, BMP 12/13/19 12:55 12/13/19 12:55 PE: Gen: A&O x3 Resp: breathing comfortably Chest: Rt permacath in place with cuff out at skin, no erythema or discharge noted. RUE: no swelling or edema, nontender Problem List - Problems (1) Hemodialysis catheter malfunction Assessment/Plan: Plan -Permacath will need to be exchange as cuff is out of tunnel, may continue to use catheter, but will schedule for catheter exchange on 12/15 -please make NPO after midnight 12/14 -medical clearance Pt discussed with Dr. Churchill who agrees with plan Code(s): T82.41XA - BREAKDOWN (MECHANICAL) OF VASCULAR DIALYSIS CATHETER, INIT
[2019-12-13] MEDS: PREGABALIN 25 MG CAPSULE PO SCH (23:42)
[2019-12-13] MEDS: LIDOCAINE PATCH REMOVAL MC SCH (23:42)
[2019-12-13] MEDS: ATORVASTATIN CA 20 MG TABLET (FP) PO SCH (23:43)
[2019-12-14] MEDS: INSULIN SLIDING SCALE (NOVOLOG) 1 VIAL SQ SCH ×4 (06:29→23:51)
[2019-12-14] MEDS: VANCOMYCIN 250 MG/5 ML ORAL SOLUTION PO SCH ×4 (06:29→23:48)
[2019-12-14] MEDS: ALBUTEROL SO4 2.5/IPRATROPIUM 0.5 INH SOL 3 ML VIAL.NEB. NEB SCH ×4 (08:35→20:38)
--- NOTE | 2019-12-14 09:46 | SPA.PREOP ---
- PRE-OP NOTE Dx: ESRD on HD via Permacath Planned Procedure: Permacatheter exchange Surgeon: Armando Churchill Last Vital Signs Temp Pulse Resp BP Pulse Ox 97.1 F L 67 20 151/75 93 L 12/14/19 06:00 12/14/19 06:00 12/14/19 06:00 12/14/19 06:00 12/14/19 00:08 Lab Results WBC 6.5 K/mm3 (4.0-10.0) 12/13/19 12:55 RBC 2.75 M/mm3 (3.60-5.2) L 12/13/19 12:55 Hgb 8.6 GM/dL (10.7-15.3) L 12/13/19 12:55 Hct 26.7 % (32.4-45.2) L 12/13/19 12:55 MCV 97.2 fl (80-96) H 12/13/19 12:55 MCHC 32.1 g/dl (32.0-36.0) 12/13/19 12:55 RDW 18.8 % (11.6-15.6) H 12/13/19 12:55 Plt Count 142 K/MM3 (134-434) 12/13/19 12:55 Sodium 136 mmol/L (136-145) 12/13/19 12:55 Potassium 3.6 mmol/L (3.5-5.1) 12/13/19 12:55 Chloride 100 mmol/L (98-107) 12/13/19 12:55 Carbon Dioxide 30 mmol/L (21-32) 12/13/19 12:55 Anion Gap 7 MMOL/L (8-16) L 12/13/19 12:55 BUN 32.9 mg/dL (7-18) H 12/13/19 12:55 Creatinine 4.1 mg/dL (0.55-1.3) H 12/13/19 12:55 Random Glucose 118 mg/dL (74-106) H 12/13/19 12:55 Calcium 8.7 mg/dL (8.5-10.1) 12/13/19 12:55 - ASSESSMENT/PLAN 1. NPO after midnight except po meds 2. GI/DVT PPX 3. Medical optimization / clearance 4. Consent to be obtained by surgeon after risks, benefits and alternatives discussed with patient and or Health Care Proxy. Problem List - Problems (1) ESRD (end stage renal disease) on dialysis Code(s): N18.6 - END STAGE RENAL DISEASE; Z99.2 - DEPENDENCE ON RENAL DIALYSIS (2) Anemia Code(s): D64.9 - ANEMIA, UNSPECIFIED (3) Asthma Code(s): J45.909 - UNSPECIFIED ASTHMA, UNCOMPLICATED (4) CAD (coronary artery disease) Code(s): I25.10 - ATHSCL HEART DISEASE OF [place] CORONARY ARTERY W/O ANG PCTRS Qualifiers: Coronary Disease-Associated Artery/Lesion type: [place] coronary artery Associated angina: with other forms of angina pectoris (5) CHF (congestive heart failure) Code(s): I50.9 - HEART FAILURE, UNSPECIFIED (6) COPD exacerbation Code(s): J44.1 - CHRONIC OBSTRUCTIVE PULMONARY DISEASE W (ACUTE) EXACERBATION Visit type - Case Type Case Type: ED Admission - Emergency Emergency Visit: Yes ED Registration Date: 12/07/19 Care time: The patient presented to the Emergency Department on the above date and was hospitalized for further evaluation of their emergent condition. - New patient This patient is new to me today: Yes Date on this admission: 12/14/19
[2019-12-14 10:39] LABS: HEMOGLOBIN 8.2 GM/dL (10.7-15.3); MCH 30.6 pg (25.7-33.7); MCHC 31.4 g/dl (32.0-36.0); MEAN CELL VOLUME 97.3 fl (80-96); MEAN PLT VOLUME 9.5 fl (7.5-11.1); PLATELET COUNT 136 K/MM3 (134-434); RBC 2.67 M/mm3 (3.60-5.2); RDW 18.4 % (11.6-15.6); WHITE BLOOD COUNT 5.3 K/mm3 (4.0-10.0)
[2019-12-14] MEDS: ALBUMIN HUMAN 25% 12.5 GM/50 ML VIAL IVPB SCH ×4 (10:39→13:33)
--- NOTE | 2019-12-14 10:52 | PN ---
Progress Note, Physician Chief Complaint: Fall, Fatigue, Missed ESRD History of Present Illness: NAD Seen in dialysis Lethargic, sleeping while talking Leg cramps improved on Lyrica+ pramipexole State she fell because she felt weak in her legs Now + Cdiff, on PO vanco Seen by Vascular sx for Right axillary/breast edema, which has improved BL thigh edema improved C/O excruciating left flank pain, unable to turn AXR negative As per patient, she denies any hematuria Unable to give urine sample 2/2 to diarrhea - Current Medication List Current Medications: Active Medications Acetaminophen (Tylenol -) 650 mg PO Q6H PRN PRN Reason: PAIN Last Admin: 12/13/19 21:13 Dose: 650 mg Albumin Human (Albumin Human 25%) 12.5 gm IVPB Q30M [facility] Stop: 12/14/19 11:01 Albuterol/Ipratropium (Duoneb -) 1 amp NEB RQID [facility] Last Admin: 12/13/19 21:00 Dose: 1 amp Atorvastatin Calcium (Lipitor -) 20 mg PO HS [facility] Last Admin: 12/13/19 23:43 Dose: 20 mg Budesonide/Formoterol Fumarate (Symbicort 160/4.5mcg -) 2 puff IH BID [facility] Last Admin: 12/13/19 23:54 Dose: 2 puff Escitalopram Oxalate (Lexapro -) 5 mg PO DAILY [facility] Last Admin: 12/13/19 10:52 Dose: 5 mg Folic Acid (Folic Acid -) 1 mg PO DAILY [facility] Last Admin: 12/13/19 10:52 Dose: 1 mg Furosemide (Lasix -) 40 mg PO DAILY [facility] Last Admin: 12/13/19 10:52 Dose: 40 mg Hydralazine HCl (Apresoline -) 10 mg PO BID [facility] Last Admin: 12/13/19 23:42 Dose: 10 mg Sodium Chloride (Normal Saline -) 250 mls @ 3,000 mls/hr IV PRN PRN PRN Reason: Hypotension during Dialysis Stop: 12/14/19 15:19 Insulin Aspart (Novolog Vial Sliding Scale -) 1 vial SQ ACHS [facility]; Protocol Last Admin: 12/14/19 06:29 Dose: Not Given Isosorbide Mononitrate (Imdur -) 30 mg PO BID [facility] Last Admin: 12/13/19 23:42 Dose: 30 mg Lidocaine (Lidoderm Patch -) 1 patch TP DAILY [facility] Last Admin: 12/13/19 10:54 Dose: 1 patch Metoprolol Succinate (Toprol Xl -) 25 mg PO DAILY [facility] Last Admin: 12/13/19 10:53 Dose: 25 mg Miscellaneous (Lidoderm Patch Removal) 1 each MC DAILY@2200 [facility] Last Admin: 12/13/19 23:42 Dose: 1 each Ondansetron HCl (Zofran Odt -) 4 mg SL Q6H PRN PRN Reason: NAUSEA AND/OR VOMITING Pantoprazole Sodium (Protonix -) 40 mg PO DAILY [facility] Last Admin: 12/13/19 10:53 Dose: 40 mg Polysaccharide Iron Complex (Niferex-150 -) 150 mg PO DAILY [facility] Last Admin: 12/13/19 10:53 Dose: 150 mg Pramipexole Dihydrochloride (Mirapex -) 0.5 mg PO BID [facility] Last Admin: 12/13/19 23:43 Dose: 0.5 mg Pregabalin (Lyrica -) 25 mg PO HS [facility] Last Admin: 12/13/19 23:42 Dose: 25 mg Sitagliptin Phosphate (Januvia -) 25 mg PO DAILY@0700 [facility] Last Admin: 12/14/19 06:29 Dose: Not Given Vancomycin HCl (Vancomycin Oral Solution) 125 mg PO Q6HPO [facility] Last Admin: 12/14/19 06:29 Dose: 125 mg - Objective Vital Signs: Vital Signs Temperature 98.4 F 12/14/19 09:45 Pulse Rate 67 12/14/19 10:15 Respiratory Rate 18 12/14/19 10:15 Blood Pressure 120/68 12/14/19 10:15 O2 Sat by Pulse Oximetry (%) 93 L 12/14/19 00:08 Constitutional: Yes: Well Nourished, No Distress, Calm Cardiovascular: Yes: Regular Rate and Rhythm Respiratory: Yes: Regular Gastrointestinal: Yes: Normal Bowel Sounds, Soft, Abdomen, Obese, Tenderness ( LUQ,LLQ) Genitourinary: Yes: Oliguria Breast(s): Yes: Right (Edema improved) Musculoskeletal: Yes: Muscle Weakness Extremities: Yes: WNL Edema: No Peripheral Pulses WNL: Yes Neurological: Yes: Alert, Oriented Psychiatric: Yes: Alert, Oriented Labs: CBC, BMP 12/14/19 09:45 Problem List - Problems (1) ESRD (end stage renal disease) Assessment/Plan: -Nephrology consult -HD:MWF -Extra sessions as per Nephrology, Problems reviewed: Yes Code(s): N18.6 - END STAGE RENAL DISEASE (2) Fall at home Assessment/Plan: -Physical therapy eval -Safe/fall precautions -EKG unremarkable -CT head negative Problems reviewed: Yes Code(s): W19.XXXA - UNSPECIFIED FALL, INITIAL ENCOUNTER; Y92.009 - UNSP PLACE IN UNSP NON-INSTITUT (PRIVATE) RESIDENCE PLACE (3) Fatigue Assessment/Plan: -multifactorial -moderately lethargic -would keep lyrica once a day at bedtime -Seen by neurology -Restarted on pramipexole-increased dosage, if continues to be lethargic- may decrease or d/c if neurology agrees. Problems reviewed: Yes Code(s): R53.83 - OTHER FATIGUE Qualifiers: Fatigue type: unspecified Qualified Code(s): R53.83 - Other fatigue (4) Acute on chronic systolic (congestive) heart failure Assessment/Plan: -Diuretics as per nephrology Problems reviewed: Yes Code(s): I50.23 - ACUTE ON CHRONIC SYSTOLIC (CONGESTIVE) HEART FAILURE (5) CAD (coronary artery disease) Assessment/Plan: -Continue atorvastatin 20 mg po HS Problems reviewed: Yes Code(s): I25.10 - ATHSCL HEART DISEASE OF [place] CORONARY ARTERY W/O ANG PCTRS Qualifiers: Coronary Disease-Associated Artery/Lesion type: wiyot coronary artery Associated angina: with other forms of angina pectoris (6) Diabetes mellitus Assessment/Plan: -Last A1c at 7.1 in 08/2019 -A1c at 6.9 -BGM AC HS -ISS -Renal diabetic diet Problems reviewed: Yes Code(s): E11.9 - TYPE 2 DIABETES MELLITUS WITHOUT COMPLICATIONS (7) Breast swelling Assessment/Plan: -right breast -improved -Seen by Oncology to r/o recurrence of breast ca -U/S breast negative for any obvious masses -Will need mammogram O/p -Also seen by Vascular surgery -Perma cath to be changed to left side in AM Problems reviewed: Yes Code(s): N63.0 - UNSPECIFIED LUMP IN UNSPECIFIED BREAST (8) Anemia Assessment/Plan: -multifactorial -DAVID vs CKD -Iron % low -Started iron polysaccharide 150 mg po daily -monitor labs Problems reviewed: Yes Code(s): D64.9 - ANEMIA, UNSPECIFIED (9) C. difficile diarrhea Assessment/Plan: -PO Vanco Q6H -Contact isolation Problems reviewed: Yes Code(s): A04.72 - ENTEROCOLITIS D/T CLOSTRIDIUM DIFFICILE, NOT SPCF RECUR (10) Abdominal pain Assessment/Plan: -CT abd/pelvis without contrast unremarkable -acetaminophen to start off with for pain control Problems reviewed: Yes Code(s): R10.9 - UNSPECIFIED ABDOMINAL PAIN Assessment/Plan see problem list PT
[2019-12-14 11:06] LABS: ALBUMIN 3.1 g/dl (3.4-5.0); BILIRUBIN,TOTAL 0.7 mg/dL (0.2-1); BLOOD UREA NITROGEN 37.2 mg/dL (7-18); CALCIUM 8.2 mg/dL (8.5-10.1); CREATININE 4.6 mg/dL (0.55-1.3); POTASSIUM 3.7 mmol/L (3.5-5.1); TOT PROT 6.3 g/dl (6.4-8.2)
[2019-12-14] MEDS: ACETAMINOPHEN 325 MG TABLET (FP) PO PRN ×2 (11:07→23:47)
[2019-12-14] MEDS: LIDOCAINE 5% TOPICAL PATCH TP SCH (11:07)
[2019-12-14] MEDS ORDERED: PT OWN MED DRAWER 7, Y5N ONE ×2 (12:03→23:35)
--- NOTE | 2019-12-14 12:48 | CON.CARD ---
Consult Consult Specialty:: Cardiology Referred by:: Dr. Mcgrath Reason for Consultation:: Preoperative cardiac assessment prior to HD catheter exchange - History of Present Illness Chief Complaint: Fall at home History of Present Illness: PMH: DM- HTN HPL-- nonisch CMP/CHF, diastolic ESRD breast cancer-- CKD PARVEZ/COPD Chronic anemia Admitted after fall at home. Found to have C diff. Now needs HD catheter exchanged. ROS: Denies CP. + chronic HOWARD unchanged. Denies palpitations. No PND or orthopnea. eCG: NSR 86bpm, poor R wave. 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 Cardio/Vascular: Yes: CHF, HTN, Hyperlipdemia, Pulmonary Hypertension Pulmonary: Yes: Asthma, Sleep Apnea (on BIPAP at night) Gastrointestinal: Yes: GI Bleed (see HPI), Other (had EGD and colono 12/31, ) Renal/: Yes: Renal Failure, Renal Inusuff, Other (hyperkalemia) ...LMP: 11/17/07 Endocrine: Yes: Diabetes Mellitus (uncontrolled) - Alcohol/Substance Use Hx Alcohol Use: No History of Substance Use: reports: None - Smoking History Smoking history: Never smoked Have you smoked in the past 12 months: Yes Aproximately how many cigarettes per day: 40 - Social History ADL: Independent History of Recent Travel: No Home Medications - Allergies Allergies/Adverse Reactions: Allergies Allergy/AdvReac Type Severity Reaction Status Date / Time No Known Allergies Allergy Verified 12/07/19 12:20 - Home Medications Home Medications: Ambulatory Orders Alprazolam 0.5 mg PO DAILY 12/04/19 Atorvastatin Ca [Lipitor] 20 mg PO HS 12/04/19 Folic Acid 1 mg PO DAILY 12/04/19 Furosemide [Lasix -] 40 mg PO DAILY 12/04/19 Isosorbide Mononitrate [Isosorbide Mononitrate ER] 30 mg PO BID 12/04/19 Metoprolol Succinate [Toprol Xl] 25 mg PO DAILY 12/04/19 Metoprolol Tartrate [Lopressor -] 50 mg PO BID 12/04/19 hydrALAZINE HCL [Apresoline -] 50 mg PO DAILY 12/04/19 Albuterol 0.083% Nebulizer Laura [Ventolin 0.083% Nebulizer Soln -] 1 amp NEB Q6H PRN amp 12/05/19 Albuterol 0.083% Nebulizer Laura [Ventolin 0.083% Nebulizer Soln -] 1 amp NEB Q6H PRN amp 12/05/19 Albuterol 2.5/Ipratropium 0.5 [Duoneb -] 1 amp NEB RQID amp 12/05/19 Albuterol 2.5/Ipratropium 0.5 [Duoneb -] 1 amp NEB RQID amp 12/05/19 Budesonide/Formeterol Fumarate [SYMBICORT 160/4.5mcg -] 2 puff IH BID inhaler 12/05/19 Budesonide/Formeterol Fumarate [SYMBICORT 160/4.5mcg -] 2 puff IH BID inhaler 12/05/19 Pramipexole Dihydrochloride [Mirapex -] 0.5 mg PO HS #31 tablet 12/05/19 Family Medical History Family History: Unremarkable (not pertinent to this presentation) Review of Systems Findings/Remarks: see HPI - Review of Systems Constitutional: reports: No Symptoms Eyes: reports: No Symptoms HENT: reports: No Symptoms Cardiovascular: reports: Shortness of Breath (chronic) Respiratory: reports: No Symptoms Gastrointestinal: reports: No Symptoms Genitourinary: reports: No Symptoms Breasts: reports: Other (right breast pain) Musculoskeletal: reports: Other (left arm, left flank pain.) Integumentary: reports: No Symptoms Neurological: reports: No Symptoms Endocrine: reports: No Symptoms Hematology/Lymphatic: reports: No Symptoms Psychiatric: reports: No Symptoms - Risk Factors Known Risk Factors: Yes: Diabetes Mellitus, Hypercholesterolemia, Hypertension, Other (Known nonobstructive CAD) Vital Signs: Vital Signs Temperature 98.4 F 12/14/19 09:45 Pulse Rate 72 12/14/19 11:15 Respiratory Rate 18 12/14/19 11:15 Blood Pressure 86/49 L 12/14/19 11:15 O2 Sat by Pulse Oximetry (%) 93 L 12/14/19 00:08 Constitutional: Yes: No Distress Eyes: Yes: Conjunctiva Clear Respiratory: Yes: Other (decreased breath sounds, no active wheezing.) Gastrointestinal: Yes: Soft (No rebound or guarding tenderness) Cardiovascular: Yes: Regular Rate and Rhythm JVD: No PMI: Non-Displaced Heart Sounds: Yes: S1, S2 (rrr) Edema: No Neurological: Yes: Alert, Oriented - Other Data Labs, Other Data: CBC, BMP 12/14/19 09:45 12/14/19 09:45 Laboratory Tests 09/24/19 09/24/19 12/09/19 07:25 07:25 21:15 WBC 7.0 Hgb 9.4 L Plt Count 131 L Sodium 136 Potassium 3.8 BUN Creatinine 2.6 H Stool Occult Blood Negative 12/14/19 12/14/19 09:45 09:45 WBC 5.3 Hgb 8.2 L Plt Count 136 Sodium 136 Potassium 3.7 BUN 37.2 H Creatinine 4.6 H Stool Occult Blood see HPI Echo: Other (08/2019: Severe PHTN, EF 45%, global hk) Prior Cardiac Procedures: Cardiac Catheterization (2012: 50-60%OM, not FFR sig; mild disease elsewhere) Imaging - Results Cat Scan: Report Reviewed EKG: Image Reviewed Assessment/Plan DATA: MIBI 08/27 (pers): no ST change; TDS perfusion b/c of GI artifact and gating artifact; mild LV dilation and mild decr EFvisually (no TID) CXR: no congestion echo 05/2018 LV mildly dilated, borderline reduced LV function, grade II diastolic dysfunction, elevated filling pressures, LA mildly dilated, mild MAC, mild MR, mod TR, PASP at least 59 mmHg, no effusion EKG: sinus, nl intervals, no ischemic changes echo 08/2019 mild global hypokinesis EF 45%, RV nl, RA mod dilated, tr-mild MR, mod TR, RVSP at least 55 mmHg, severe pulm HTN Cath 2013: 50-60% OM1 non FFR sig. Mild disease elsewhere tele: sr ASSESSMENT/PLAN 63 yowith h/o systolic cardiomyopathy, non-obstructive cad, HTN, HL, pHTN, PAD, mod PARVEZ on cpap, COPD, ESRD on HD, DM, h/o GIB s/p cauterization of avms, chronic anemia, history of prolonged QT, DM now C.Diff + and now requiring Permacath exchange 1. Chronic systolic CHF: mild Lv dysfx. History of non-obstx CAD -hd per renal for vol management -not on EVELINA/ARB due to recurrent severe hyperkalemia -cont bb/ nitrate and hydralazine. -appears euvolemic at this time. 2. Chronic ischemic heart disease: - nonobstructive OM dz inc FFR negative, no history of angina -continue statin/ beta bethel -ECG without acute changes. - no asa - hx anemia 3. Essential hypertension: at goal -cont hydralazine, beta bethel, nitrate 4. Obstructive sleep apnea with PHTN: -USES CPAP AT HOME and intermittently here. 5. breast ca: -manage per heme/onc 6. PAD: - known h/o obstructive RLE disease, claudication--deferred REFUELING [employer]PER[employer] previously due to risks of contrast nephropathy. To be addressed as outpatient now that on routine HD 7. DM: as per PMD 8. ESRD: as per renal. 9. C.diff: as per ID 10. Periop CV assessement: Presently, there are no absolute cardiac contraindications to permacath exchange. She is in normal sinus rhythm with controlled BP. There is no history of aortic stenosis. LVEF in mildly reduced, but she appears euvolemic. She has no active anginal symptoms. She is not on Aspirin or other anticoagulants that would predispose to bleeding. She should take her usual BP medications on the morning of the procedure with a small sip of water.
--- NOTE | 2019-12-14 13:05 | PN ---
Progress Note (short form) - Note Progress Note: PULMONARY Denies shortness of breath, cough. c/o left sided midaxillary pain/abdominal pain. Vital Signs Period Temp Pulse Resp BP Sys/Padron Pulse Ox Last 24 Hr 97.1 F-98.4 F 67-78 18-20 86-151/49-75 93-95 Gen: NAD at rest Heart: RRR Lung: decreased breath sounds at the bases Abd: soft, nontender Ext: no edema CBC, BMP 12/14/19 09:45 12/14/19 09:45 Active Medications Acetaminophen (Tylenol -) 650 mg PO Q6H PRN PRN Reason: PAIN Last Admin: 12/14/19 11:07 Dose: 650 mg Albuterol/Ipratropium (Duoneb -) 1 amp NEB RQID [facility] Last Admin: 12/14/19 12:17 Dose: 1 amp Atorvastatin Calcium (Lipitor -) 20 mg PO HS [facility] Last Admin: 12/13/19 23:43 Dose: 20 mg Budesonide/Formoterol Fumarate (Symbicort 160/4.5mcg -) 2 puff IH BID [facility] Last Admin: 12/13/19 23:54 Dose: 2 puff Escitalopram Oxalate (Lexapro -) 5 mg PO DAILY [facility] Last Admin: 12/13/19 10:52 Dose: 5 mg Folic Acid (Folic Acid -) 1 mg PO DAILY [facility] Last Admin: 12/13/19 10:52 Dose: 1 mg Furosemide (Lasix -) 40 mg PO DAILY [facility] Last Admin: 12/13/19 10:52 Dose: 40 mg Hydralazine HCl (Apresoline -) 10 mg PO BID [facility] Last Admin: 12/13/19 23:42 Dose: 10 mg Sodium Chloride (Normal Saline -) 250 mls @ 3,000 mls/hr IV PRN PRN PRN Reason: Hypotension during Dialysis Stop: 12/14/19 15:19 Insulin Aspart (Novolog Vial Sliding Scale -) 1 vial SQ ACHS [facility]; Protocol Last Admin: 12/14/19 06:29 Dose: Not Given Isosorbide Mononitrate (Imdur -) 30 mg PO BID [facility] Last Admin: 12/13/19 23:42 Dose: 30 mg Lidocaine (Lidoderm Patch -) 1 patch TP DAILY [facility] Last Admin: 12/14/19 11:07 Dose: 1 patch Metoprolol Succinate (Toprol Xl -) 25 mg PO DAILY [facility] Last Admin: 12/13/19 10:53 Dose: 25 mg Miscellaneous (Lidoderm Patch Removal) 1 each MC DAILY@2200 [facility] Last Admin: 12/13/19 23:42 Dose: 1 each Ondansetron HCl (Zofran Odt -) 4 mg SL Q6H PRN PRN Reason: NAUSEA AND/OR VOMITING Pantoprazole Sodium (Protonix -) 40 mg PO DAILY [facility] Last Admin: 12/13/19 10:53 Dose: 40 mg Polysaccharide Iron Complex (Niferex-150 -) 150 mg PO DAILY [facility] Last Admin: 12/13/19 10:53 Dose: 150 mg Pramipexole Dihydrochloride (Mirapex -) 0.5 mg PO BID [facility] Last Admin: 12/13/19 23:43 Dose: 0.5 mg Pregabalin (Lyrica -) 25 mg PO HS [facility] Last Admin: 12/13/19 23:42 Dose: 25 mg Sitagliptin Phosphate (Januvia -) 25 mg PO DAILY@0700 [facility] Last Admin: 12/14/19 06:29 Dose: Not Given Vancomycin HCl (Vancomycin Oral Solution) 125 mg PO Q6HPO [facility] Last Admin: 12/14/19 06:29 Dose: 125 mg A/P C Diff Colitis ESRD on HD LV Diastolic Dysfunction COPD Obstructive Sleep Apnea Restless Leg Syndrome HTN DM Hyperlipidemia Breast CA Anemia - continue antibiotics for C diff - inhaled bronchodilators - O2 to keep SpO2 >90% - CPAP at night and PRN during day - HD per renal - DVT prophylaxis
[2019-12-14] MEDS: FUROSEMIDE 40 MG TABLET (FP) PO SCH (14:41)
[2019-12-14] MEDS: ESCITALOPRAM OXALATE 10 MG TABLET PO SCH (14:42)
[2019-12-14] MEDS: IRON POLYSACCHARIDES 150 MG CAPSULE PO SCH (14:43)
[2019-12-14] MEDS: metoPROLOL SUCCINATE 25 MG TAB.SR.24H (FP) PO SCH (14:43)
[2019-12-14] MEDS: PANTOPRAZOLE 40 MG TABLET PO SCH (14:44)
[2019-12-14] MEDS: hydrALAZINE HCL 10 MG TABLET PO SCH ×2 (14:44→23:47)
[2019-12-14] MEDS: ISOSORBIDE MONONITRATE 30 MG TAB.SR.24H (FP) PO SCH ×2 (14:45→23:47)
[2019-12-14] MEDS: FOLIC ACID 1 MG TABLET (FP) PO SCH (14:45)
[2019-12-14] MEDS: PRAMIPEXOLE DIHYDROCHLORIDE 0.5 MG TABLET PO SCH ×2 (14:47→23:48)
[2019-12-14] MEDS: BUDESONIDE/FORMETEROL FUMARATE 160/4.5 mcg INHALER IH SCH ×2 (14:48→23:51)
[2019-12-14 16:28] VITALS: BMI 33.5
--- NOTE | 2019-12-14 18:47 | PN ---
Progress Note, Physician History of Present Illness: Pt seen and examined at bedside. She is awake and alert. She tolerated HD. - Current Medication List Current Medications: Active Medications Acetaminophen (Tylenol -) 650 mg PO Q6H PRN PRN Reason: PAIN Last Admin: 12/14/19 11:07 Dose: 650 mg Albuterol/Ipratropium (Duoneb -) 1 amp NEB RQID [facility] Last Admin: 12/14/19 17:14 Dose: 1 amp Atorvastatin Calcium (Lipitor -) 20 mg PO HS [facility] Last Admin: 12/13/19 23:43 Dose: 20 mg Budesonide/Formoterol Fumarate (Symbicort 160/4.5mcg -) 2 puff IH BID [facility] Last Admin: 12/14/19 14:48 Dose: 2 puff Escitalopram Oxalate (Lexapro -) 5 mg PO DAILY [facility] Last Admin: 12/14/19 14:42 Dose: 5 mg Folic Acid (Folic Acid -) 1 mg PO DAILY [facility] Last Admin: 12/14/19 14:45 Dose: 1 mg Furosemide (Lasix -) 40 mg PO DAILY [facility] Last Admin: 12/14/19 14:41 Dose: Not Given Hydralazine HCl (Apresoline -) 10 mg PO BID [facility] Last Admin: 12/14/19 14:44 Dose: 10 mg Insulin Aspart (Novolog Vial Sliding Scale -) 1 vial SQ ACHS [facility]; Protocol Last Admin: 12/14/19 17:13 Dose: Not Given Isosorbide Mononitrate (Imdur -) 30 mg PO BID [facility] Last Admin: 12/14/19 14:45 Dose: 30 mg Lidocaine (Lidoderm Patch -) 1 patch TP DAILY [facility] Last Admin: 12/14/19 11:07 Dose: 1 patch Metoprolol Succinate (Toprol Xl -) 25 mg PO DAILY [facility] Last Admin: 12/14/19 14:43 Dose: 25 mg Miscellaneous (Lidoderm Patch Removal) 1 each MC DAILY@2200 [facility] Last Admin: 12/13/19 23:42 Dose: 1 each Ondansetron HCl (Zofran Odt -) 4 mg SL Q6H PRN PRN Reason: NAUSEA AND/OR VOMITING Pantoprazole Sodium (Protonix -) 40 mg PO DAILY [facility] Last Admin: 12/14/19 14:44 Dose: 40 mg Polysaccharide Iron Complex (Niferex-150 -) 150 mg PO DAILY [facility] Last Admin: 12/14/19 14:43 Dose: 150 mg Pramipexole Dihydrochloride (Mirapex -) 0.5 mg PO BID [facility] Last Admin: 12/14/19 14:47 Dose: 0.5 mg Pregabalin (Lyrica -) 25 mg PO [facility] Last Admin: 12/13/19 23:42 Dose: 25 mg Sitagliptin Phosphate (Januvia -) 25 mg PO DAILY@0700 [facility] Last Admin: 12/14/19 06:29 Dose: Not Given Vancomycin HCl (Vancomycin Oral Solution) 125 mg PO Q6HPO [facility] Last Admin: 12/14/19 17:55 Dose: 125 mg - Objective Vital Signs: Vital Signs Temperature 97.7 F 12/14/19 15:00 Pulse Rate 80 12/14/19 15:00 Respiratory Rate 20 12/14/19 15:00 Blood Pressure 154/77 12/14/19 15:00 O2 Sat by Pulse Oximetry (%) 93 L 12/14/19 00:08 Constitutional: Yes: Calm Eyes: Yes: Conjunctiva Clear HENT: Yes: Atraumatic Neck: Yes: Supple Cardiovascular: Yes: S1, S2 Respiratory: Yes: CTA Bilaterally, On Nasal O2 Gastrointestinal: Yes: Soft Genitourinary: Yes: WNL Musculoskeletal: Yes: WNL Edema: Yes (improved) Edema: LLE: 1+, RLE: 1+ Neurological: Yes: Oriented Psychiatric: Yes: Oriented Labs: CBC, BMP 12/14/19 09:45 12/14/19 09:45 Problem List - Problems (1) ESRD (end stage renal disease) Code(s): N18.6 - END STAGE RENAL DISEASE Assessment/Plan Current Medications Generic Name Dose Route Start Last Admin Trade Name Freq PRN Reason Stop Dose Admin Acetaminophen 650 mg 12/13/19 12:14 12/14/19 11:07 Tylenol - PO 650 mg Q6H PRN Administration PAIN Albuterol/Ipratropium 1 amp 12/07/19 20:00 12/14/19 17:14 Duoneb - NEB 1 amp RQID [facility] Administration Atorvastatin Calcium 20 mg 12/07/19 22:00 12/13/19 23:43 Lipitor - PO 20 mg [facility] Administration Budesonide/Formoterol Fumarate 2 puff 12/07/19 22:00 12/14/19 14:48 Symbicort 160/4.5mcg - IH 2 puff BID [facility] Administration Escitalopram Oxalate 5 mg 12/09/19 10:00 12/14/19 14:42 Lexapro - PO 5 mg DAILY [facility] Administration Folic Acid 1 mg 12/08/19 10:00 12/14/19 14:45 Folic Acid - PO 1 mg DAILY [facility] Administration Furosemide 40 mg 12/08/19 10:00 12/14/19 14:41 Lasix - PO Not Given DAILY [facility] Hydralazine HCl 10 mg 12/08/19 22:00 12/14/19 14:44 Apresoline - PO 10 mg BID [facility] Administration Insulin Aspart 1 vial 12/07/19 22:00 12/14/19 17:13 Novolog Vial Sliding Scale - SQ Not Given ACHS [facility] Protocol Isosorbide Mononitrate 30 mg 12/07/19 22:00 12/14/19 14:45 Imdur - PO 30 mg BID [facility] Administration Lidocaine 1 patch 12/12/19 11:00 12/14/19 11:07 Lidoderm Patch - TP 1 patch DAILY [facility] Administration Metoprolol Succinate 25 mg 12/09/19 10:00 12/14/19 14:43 Toprol Xl - PO 25 mg DAILY [facility] Administration Miscellaneous 1 each 12/12/19 22:00 12/13/19 23:42 Lidoderm Patch Removal MC 1 each DAILY@2200 [facility] Administration Ondansetron HCl 4 mg 12/11/19 12:16 Zofran Odt - SL Q6H PRN NAUSEA AND/OR VOMITING Pantoprazole Sodium 40 mg 12/11/19 12:30 12/14/19 14:44 Protonix - PO 40 mg DAILY [facility] Administration Polysaccharide Iron Complex 150 mg 12/09/19 11:45 12/14/19 14:43 Niferex-150 - PO 150 mg DAILY [facility] Administration Pramipexole Dihydrochloride 0.5 mg 12/08/19 22:00 12/14/19 14:47 Mirapex - PO 0.5 mg BID [facility] Administration Pregabalin 25 mg 12/09/19 22:00 12/13/19 23:42 Lyrica - PO 25 mg HS [facility] Administration Sitagliptin Phosphate 25 mg 12/08/19 12:20 12/14/19 06:29 Januvia - PO Not Given DAILY@0700 [facility] Vancomycin HCl 125 mg 12/10/19 18:00 12/14/19 17:55 Vancomycin Oral Solution PO 125 mg Q6HPO [facility] Administration Impression 1. ESRD 2. anemia 3. CHF 4. HTN 5. DM 6. hyperlipidemia 7. anxiety 8. uterine cancer 9. hx GI bleed 10. COPD 11. breast cancer 12. restless leg syndrome Plan - HD today - renal diet - fluid restriction - volume status improved - restless leg symptoms improved
[2019-12-14] MEDS: ATORVASTATIN CA 20 MG TABLET (FP) PO SCH (23:48)
[2019-12-14] MEDS: LIDOCAINE PATCH REMOVAL MC SCH (23:48)
[2019-12-14] MEDS: PREGABALIN 25 MG CAPSULE PO SCH (23:48)
[2019-12-15 02:47] LABS: HYALINE CASTS 11 /lpf (0-8); URINE APPEARANCE TURBID; URINE BACTERIA 2.4 /hpf (NEGATIVE); URINE BILIRUBIN 2+ (NEGATIVE); URINE COLOR DK YELLOW; URINE GLUCOSE (UA) NEGATIVE (NEGATIVE); URINE KETONE TRACE (NEGATIVE); URINE LEUK ESTERASE 2+ (NEGATIVE); URINE NITRITE POSITIVE (NEGATIVE); URINE PROTEIN 3+ (NEGATIVE); URINE WBC 268 /hpf (0-5)
[2019-12-15 03:03] LABS: URINE RBC 53.1 /hpf (0-4); YEAST NONE SEEN (NEGATIVE)
[2019-12-15] MEDS: INSULIN SLIDING SCALE (NOVOLOG) 1 VIAL SQ SCH ×4 (06:26→22:42)
[2019-12-15] MEDS: VANCOMYCIN 250 MG/5 ML ORAL SOLUTION PO SCH ×4 (06:28→23:59)
[2019-12-15] MEDS: ACETAMINOPHEN 325 MG TABLET (FP) PO PRN (06:28)
[2019-12-15] MEDS: ALBUTEROL SO4 2.5/IPRATROPIUM 0.5 INH SOL 3 ML VIAL.NEB. NEB SCH ×4 (08:32→20:35)
[2019-12-15] MEDS: metoPROLOL SUCCINATE 25 MG TAB.SR.24H (FP) PO SCH (10:02)
[2019-12-15] MEDS: FOLIC ACID 1 MG TABLET (FP) PO SCH (10:02)
[2019-12-15] MEDS: FUROSEMIDE 40 MG TABLET (FP) PO SCH (10:02)
[2019-12-15] MEDS: hydrALAZINE HCL 10 MG TABLET PO SCH ×2 (10:02→22:41)
[2019-12-15] MEDS: IRON POLYSACCHARIDES 150 MG CAPSULE PO SCH (10:02)
[2019-12-15] MEDS: ISOSORBIDE MONONITRATE 30 MG TAB.SR.24H (FP) PO SCH ×2 (10:02→22:41)
[2019-12-15] MEDS: ESCITALOPRAM OXALATE 10 MG TABLET PO SCH (10:02)
[2019-12-15] MEDS: PANTOPRAZOLE 40 MG TABLET PO SCH (10:02)
[2019-12-15] MEDS: BUDESONIDE/FORMETEROL FUMARATE 160/4.5 mcg INHALER IH SCH ×2 (10:03→22:43)
[2019-12-15] MEDS: LIDOCAINE 5% TOPICAL PATCH TP SCH (10:03)
[2019-12-15] MEDS: PRAMIPEXOLE DIHYDROCHLORIDE 0.5 MG TABLET PO SCH ×2 (10:03→22:42)
[2019-12-15] MEDS ORDERED: traMADol HCL 50 MG TABLET PO PRN (11:20)
--- NOTE | 2019-12-15 11:22 | PN ---
Progress Note, Physician Chief Complaint: Fall, Fatigue, Missed ESRD History of Present Illness: NAD Seen in dialysis Lethargic, sleeping while talking Leg cramps improved on Lyrica+ pramipexole State she fell because she felt weak in her legs Now + Cdiff, on PO vanco Seen by Vascular sx for Right axillary/breast edema, which has improved BL thigh edema improved C/O excruciating left flank pain, unable to turn AXR negative As per patient, she denies any hematuria Unable to give urine sample 2/2 to diarrhea - Current Medication List Current Medications: Active Medications Acetaminophen (Tylenol -) 650 mg PO Q6H PRN PRN Reason: PAIN Last Admin: 12/15/19 06:28 Dose: 650 mg Albuterol/Ipratropium (Duoneb -) 1 amp NEB RQID [facility] Last Admin: 12/15/19 08:32 Dose: 1 amp Atorvastatin Calcium (Lipitor -) 20 mg PO HS [facility] Last Admin: 12/14/19 23:48 Dose: 20 mg Budesonide/Formoterol Fumarate (Symbicort 160/4.5mcg -) 2 puff IH BID [facility] Last Admin: 12/15/19 10:03 Dose: 2 puff Escitalopram Oxalate (Lexapro -) 5 mg PO DAILY [facility] Last Admin: 12/15/19 10:02 Dose: 5 mg Folic Acid (Folic Acid -) 1 mg PO DAILY [facility] Last Admin: 12/15/19 10:02 Dose: 1 mg Furosemide (Lasix -) 40 mg PO DAILY [facility] Last Admin: 12/15/19 10:02 Dose: 40 mg Hydralazine HCl (Apresoline -) 10 mg PO BID [facility] Last Admin: 12/15/19 10:02 Dose: 10 mg Insulin Aspart (Novolog Vial Sliding Scale -) 1 vial SQ ACHS [facility]; Protocol Last Admin: 12/15/19 06:26 Dose: Not Given Isosorbide Mononitrate (Imdur -) 30 mg PO BID [facility] Last Admin: 12/15/19 10:02 Dose: 30 mg Lidocaine (Lidoderm Patch -) 1 patch TP DAILY [facility] Last Admin: 12/15/19 10:03 Dose: 1 patch Metoprolol Succinate (Toprol Xl -) 25 mg PO DAILY [facility] Last Admin: 12/15/19 10:02 Dose: 25 mg Miscellaneous (Lidoderm Patch Removal) 1 each MC DAILY@2200 [facility] Last Admin: 12/14/19 23:48 Dose: 1 each Ondansetron HCl (Zofran Odt -) 4 mg SL Q6H PRN PRN Reason: NAUSEA AND/OR VOMITING Pantoprazole Sodium (Protonix -) 40 mg PO DAILY [facility] Last Admin: 12/15/19 10:02 Dose: 40 mg Polysaccharide Iron Complex (Niferex-150 -) 150 mg PO DAILY [facility] Last Admin: 12/15/19 10:02 Dose: 150 mg Pramipexole Dihydrochloride (Mirapex -) 0.5 mg PO BID [facility] Last Admin: 12/15/19 10:03 Dose: 0.5 mg Pregabalin (Lyrica -) 25 mg PO HS [facility] Last Admin: 12/14/19 23:48 Dose: 25 mg Sitagliptin Phosphate (Januvia -) 25 mg PO DAILY@0700 [facility] Last Admin: 12/15/19 06:29 Dose: 25 mg Tramadol HCl (Ultram -) 50 mg PO Q8H PRN PRN Reason: PAIN LEVEL 6-10 Vancomycin HCl (Vancomycin Oral Solution) 125 mg PO Q6HPO [facility] Last Admin: 12/15/19 06:28 Dose: 125 mg - Objective Vital Signs: Vital Signs Temperature 97.2 F L 12/15/19 06:00 Pulse Rate 74 12/15/19 06:00 Respiratory Rate 20 12/15/19 06:00 Blood Pressure 153/81 12/15/19 06:00 O2 Sat by Pulse Oximetry (%) 97 12/15/19 05:11 Constitutional: Yes: Well Nourished, No Distress, Calm Cardiovascular: Yes: Regular Rate and Rhythm Respiratory: Yes: Regular Gastrointestinal: Yes: Normal Bowel Sounds, Soft, Abdomen, Obese Genitourinary: Yes: Oliguria Breast(s): Yes: Right (edema-improved) Musculoskeletal: Yes: WNL Extremities: Yes: WNL Edema: Yes (BL thigh trace) Peripheral Pulses WNL: Yes Neurological: Yes: Alert, Oriented Psychiatric: Yes: Alert, Oriented Labs: CBC, BMP 12/14/19 09:45 12/14/19 09:45 Problem List - Problems (1) ESRD (end stage renal disease) Assessment/Plan: -Nephrology consult -HD:MWF -Extra sessions as per Nephrology, Problems reviewed: Yes Code(s): N18.6 - END STAGE RENAL DISEASE (2) Fall at home Assessment/Plan: -Physical therapy eval -Safe/fall precautions -EKG unremarkable -CT head negative Problems reviewed: Yes Code(s): W19.XXXA - UNSPECIFIED FALL, INITIAL ENCOUNTER; Y92.009 - UNSP PLACE [facility] (3) Fatigue Assessment/Plan: -multifactorial -moderately lethargic -would keep lyrica once a day at bedtime -Seen by neurology -Restarted on pramipexole-increased dosage, if continues to be lethargic- may decrease or d/c if neurology agrees. Problems reviewed: Yes Code(s): R53.83 - OTHER FATIGUE Qualifiers: Fatigue type: unspecified Qualified Code(s): R53.83 - Other fatigue (4) Acute on chronic systolic (congestive) heart failure Assessment/Plan: -Diuretics as per nephrology Problems reviewed: Yes Code(s): I50.23 - ACUTE ON CHRONIC SYSTOLIC (CONGESTIVE) HEART FAILURE (5) CAD (coronary artery disease) Assessment/Plan: -Continue atorvastatin 20 mg po HS Problems reviewed: Yes Code(s): I25.10 - ATHSCL HEART DISEASE OF [place] CORONARY ARTERY W/O ANG PCTRS Qualifiers: Coronary Disease-Associated Artery/Lesion type: [place] coronary artery Associated angina: with other forms of angina pectoris (6) Diabetes mellitus Assessment/Plan: -Last A1c at 7.1 in 08/2019 -A1c at 6.9 -BGM AC HS -ISS -Renal diabetic diet Problems reviewed: Yes Code(s): E11.9 - TYPE 2 DIABETES MELLITUS WITHOUT COMPLICATIONS (7) Breast swelling Assessment/Plan: -right breast -improved -Seen by Oncology to r/o recurrence of breast ca -U/S breast negative for any obvious masses -Will need mammogram O/p -Also seen by Vascular surgery -Perma cath to be changed to left side in AM -Medically cleared with acceptable risks Problems reviewed: Yes Code(s): N63.0 - UNSPECIFIED LUMP IN UNSPECIFIED BREAST (8) Anemia Assessment/Plan: -multifactorial -DAVID vs CKD -Iron % low -Started iron polysaccharide 150 mg po daily -monitor labs Problems reviewed: Yes Code(s): D64.9 - ANEMIA, UNSPECIFIED (9) C. difficile diarrhea Assessment/Plan: -PO Vanco Q6H -Contact isolation Problems reviewed: Yes Code(s): A04.72 - ENTEROCOLITIS D/T CLOSTRIDIUM DIFFICILE, NOT SPCF RECUR (10) Abdominal pain Assessment/Plan: -CT abd/pelvis without contrast unremarkable -acetaminophen to start off with for pain control Problems reviewed: Yes Code(s): R10.9 - UNSPECIFIED ABDOMINAL PAIN Assessment/Plan see problem list PT Cleared medically for perma cath change with acceptable risks
--- NOTE | 2019-12-15 12:14 | PN ---
Progress Note (short form) - Note Progress Note: s: no chest pain, palps, dizziness Current Medications Acetaminophen (Tylenol -) 650 mg PO Q6H PRN PRN Reason: PAIN 1-3 Last Admin: 12/15/19 06:28 Dose: 650 mg Albuterol/Ipratropium (Duoneb -) 1 amp NEB RQID [facility] Last Admin: 12/15/19 12:00 Dose: 1 amp Atorvastatin Calcium (Lipitor -) 20 mg PO HS [facility] Last Admin: 12/14/19 23:48 Dose: 20 mg Budesonide/Formoterol Fumarate (Symbicort 160/4.5mcg -) 2 puff IH BID [facility] Last Admin: 12/15/19 10:03 Dose: 2 puff Escitalopram Oxalate (Lexapro -) 5 mg PO DAILY [facility] Last Admin: 12/15/19 10:02 Dose: 5 mg Folic Acid (Folic Acid -) 1 mg PO DAILY [facility] Last Admin: 12/15/19 10:02 Dose: 1 mg Furosemide (Lasix -) 40 mg PO DAILY [facility] Last Admin: 12/15/19 10:02 Dose: 40 mg Hydralazine HCl (Apresoline -) 10 mg PO BID [facility] Last Admin: 12/15/19 10:02 Dose: 10 mg Insulin Aspart (Novolog Vial Sliding Scale -) 1 vial SQ ACHS [facility]; Protocol Last Admin: 12/15/19 11:55 Dose: Not Given Isosorbide Mononitrate (Imdur -) 30 mg PO BID [facility] Last Admin: 12/15/19 10:02 Dose: 30 mg Lidocaine (Lidoderm Patch -) 1 patch TP DAILY [facility] Last Admin: 12/15/19 10:03 Dose: 1 patch Metoprolol Succinate (Toprol Xl -) 25 mg PO DAILY [facility] Last Admin: 12/15/19 10:02 Dose: 25 mg Miscellaneous (Lidoderm Patch Removal) 1 each MC DAILY@2200 [facility] Last Admin: 12/14/19 23:48 Dose: 1 each Ondansetron HCl (Zofran Odt -) 4 mg SL Q6H PRN PRN Reason: NAUSEA AND/OR VOMITING Pantoprazole Sodium (Protonix -) 40 mg PO DAILY [facility] Last Admin: 12/15/19 10:02 Dose: 40 mg Polysaccharide Iron Complex (Niferex-150 -) 150 mg PO DAILY [facility] Last Admin: 12/15/19 10:02 Dose: 150 mg Pramipexole Dihydrochloride (Mirapex -) 0.5 mg PO BID [facility] Last Admin: 12/15/19 10:03 Dose: 0.5 mg Pregabalin (Lyrica -) 25 mg PO HS [facility] Last Admin: 12/14/19 23:48 Dose: 25 mg Sitagliptin Phosphate (Januvia -) 25 mg PO DAILY@0700 [facility] Last Admin: 12/15/19 06:29 Dose: 25 mg Tramadol HCl (Ultram -) 50 mg PO Q8H PRN PRN Reason: PAIN LEVEL 6-10 Vancomycin HCl (Vancomycin Oral Solution) 125 mg PO Q6HPO [facility] Last Admin: 12/15/19 06:28 Dose: 125 mg Vital Signs Period Temp Pulse Resp BP Sys/Padron Pulse Ox Last 24 Hr 97.2 F-97.9 F 72-80 18-20 131-154/66-86 95-97 Constitutional: Yes: No Distress Eyes: Yes: Conjunctiva Clear Respiratory: Yes: Other (decreased breath sounds, no active wheezing.) Gastrointestinal: Yes: Soft (No rebound or guarding tenderness) Cardiovascular: Yes: Regular Rate and Rhythm JVD: No PMI: Non-Displaced Heart Sounds: Yes: S1, S2 (rrr) Edema: No Neurological: Yes: Alert, Oriented no jaundice, diaphoresis not agitated Echo: Other (08/2019: Severe PHTN, EF 45%, global hk) Prior Cardiac Procedures: Cardiac Catheterization (2012: 50-60%OM, not FFR sig; mild disease elsewhere) Imaging - Results Cat Scan: Report Reviewed EKG: Image Reviewed Assessment/Plan DATA: MIBI 08/27 (pers): no ST change; TDS perfusion b/c of GI artifact and gating artifact; mild LV dilation and mild decr EFvisually (no TID) CXR: no congestion echo 05/2018 LV mildly dilated, borderline reduced LV function, grade II diastolic dysfunction, elevated filling pressures, LA mildly dilated, mild MAC, mild MR, mod TR, PASP at least 59 mmHg, no effusion EKG: sinus, nl intervals, no ischemic changes echo 08/2019 mild global hypokinesis EF 45%, RV nl, RA mod dilated, tr-mild MR, mod TR, RVSP at least 55 mmHg, severe pulm HTN Cath 2013: 50-60% OM1 non FFR sig. Mild disease elsewhere tele: sr ASSESSMENT/PLAN 63 yowith h/o systolic cardiomyopathy, non-obstructive cad, HTN, HL, pHTN, PAD, mod PARVEZ on cpap, COPD, ESRD on HD, DM, h/o GIB s/p cauterization of avms, chronic anemia, history of prolonged QT, DM now C.Diff + and now requiring Permacath exchange 1. Chronic systolic CHF: mild Lv dysfx. History of non-obstx CAD -hd per renal for vol management -not on EVELINA/ARB due to recurrent severe hyperkalemia -cont bb/ nitrate and hydralazine. -appears euvolemic at this time. 2. Chronic ischemic heart disease: - nonobstructive OM dz inc FFR negative, no history of angina -continue statin/ beta bethel -ECG without acute changes. - no asa - hx anemia 3. Essential hypertension: at goal -cont hydralazine, beta bethel, nitrate 4. Obstructive sleep apnea with PHTN: -USES CPAP AT HOME and intermittently here. 5. breast ca: -manage per heme/onc 6. PAD: - known h/o obstructive RLE disease, claudication--deferred PULP GR[employer]ER [employer]ER previously due to risks of contrast nephropathy. To be addressed as outpatient now that on routine HD 7. DM: as per PMD 8. ESRD: as per renal. 9. C.diff: as per ID 10. Periop CV assessement: Presently, there are no absolute cardiac contraindications to permacath exchange. She is in normal sinus rhythm with controlled BP. There is no history of aortic stenosis. LVEF in mildly reduced, but she appears euvolemic. She has no active anginal symptoms. She is not on Aspirin or other anticoagulants that would predispose to bleeding. She should take her usual BP medications on the morning of the procedure with a small sip of water.
[2019-12-15] MEDS ORDERED: FUROSEMIDE 100 MG/10 ML INJECTABLE VIAL IVPB ONE (12:52)
--- NOTE | 2019-12-15 12:53 | PN ---
Progress Note, Physician History of Present Illness: Pt seen and examine at bedside. She is awake and alert. - Current Medication List Current Medications: Active Medications Acetaminophen (Tylenol -) 650 mg PO Q6H PRN PRN Reason: PAIN 1-3 Last Admin: 12/15/19 06:28 Dose: 650 mg Albuterol/Ipratropium (Duoneb -) 1 amp NEB RQID [facility] Last Admin: 12/15/19 12:00 Dose: 1 amp Atorvastatin Calcium (Lipitor -) 20 mg PO HS [facility] Last Admin: 12/14/19 23:48 Dose: 20 mg Budesonide/Formoterol Fumarate (Symbicort 160/4.5mcg -) 2 puff IH BID [facility] Last Admin: 12/15/19 10:03 Dose: 2 puff Escitalopram Oxalate (Lexapro -) 5 mg PO DAILY [facility] Last Admin: 12/15/19 10:02 Dose: 5 mg Folic Acid (Folic Acid -) 1 mg PO DAILY [facility] Last Admin: 12/15/19 10:02 Dose: 1 mg Furosemide (Lasix -) 40 mg PO DAILY [facility] Last Admin: 12/15/19 10:02 Dose: 40 mg Hydralazine HCl (Apresoline -) 10 mg PO BID [facility] Last Admin: 12/15/19 10:02 Dose: 10 mg Insulin Aspart (Novolog Vial Sliding Scale -) 1 vial SQ ACHS [facility]; Protocol Last Admin: 12/15/19 11:55 Dose: Not Given Isosorbide Mononitrate (Imdur -) 30 mg PO BID [facility] Last Admin: 12/15/19 10:02 Dose: 30 mg Lidocaine (Lidoderm Patch -) 1 patch TP DAILY [facility] Last Admin: 12/15/19 10:03 Dose: 1 patch Metoprolol Succinate (Toprol Xl -) 25 mg PO DAILY [facility] Last Admin: 12/15/19 10:02 Dose: 25 mg Miscellaneous (Lidoderm Patch Removal) 1 each MC DAILY@2200 [facility] Last Admin: 12/14/19 23:48 Dose: 1 each Ondansetron HCl (Zofran Odt -) 4 mg SL Q6H PRN PRN Reason: NAUSEA AND/OR VOMITING Pantoprazole Sodium (Protonix -) 40 mg PO DAILY [facility] Last Admin: 12/15/19 10:02 Dose: 40 mg Polysaccharide Iron Complex (Niferex-150 -) 150 mg PO DAILY [facility] Last Admin: 12/15/19 10:02 Dose: 150 mg Pramipexole Dihydrochloride (Mirapex -) 0.5 mg PO BID [facility] Last Admin: 12/15/19 10:03 Dose: 0.5 mg Pregabalin (Lyrica -) 25 mg PO HS [facility] Last Admin: 12/14/19 23:48 Dose: 25 mg Sitagliptin Phosphate (Januvia -) 25 mg PO DAILY@0700 [facility] Last Admin: 12/15/19 06:29 Dose: 25 mg Tramadol HCl (Ultram -) 50 mg PO Q8H PRN PRN Reason: PAIN LEVEL 6-10 Last Admin: 12/15/19 12:22 Dose: 50 mg Vancomycin HCl (Vancomycin Oral Solution) 125 mg PO Q6HPO [facility] Last Admin: 12/15/19 12:18 Dose: 125 mg - Objective Vital Signs: Vital Signs Temperature 97.2 F L 12/15/19 06:00 Pulse Rate 76 12/15/19 10:00 Respiratory Rate 12/15/19 10:00 Blood Pressure 152/66 12/15/19 10:00 O2 Sat by Pulse Oximetry (%) 96 12/15/19 09:00 Constitutional: Yes: Calm Eyes: Yes: Conjunctiva Clear HENT: Yes: Atraumatic Neck: Yes: Supple Cardiovascular: Yes: S1, S2 Respiratory: Yes: CTA Bilaterally Gastrointestinal: Yes: Soft Genitourinary: Yes: WNL Musculoskeletal: Yes: WNL Edema: Yes Edema: LLE: 1+, RLE: 1+ Neurological: Yes: Oriented Labs: CBC, BMP 12/14/19 09:45 12/14/19 09:45 Problem List - Problems (1) ESRD (end stage renal disease) Code(s): N18.6 - END STAGE RENAL DISEASE Assessment/Plan Current Medications Generic Name Dose Route Start Last Admin Trade Name Freq PRN Reason Stop Dose Admin Acetaminophen 650 mg 12/13/19 12:14 12/15/19 06:28 Tylenol - PO 650 mg Q6H PRN Administration PAIN 1-3 Albuterol/Ipratropium 1 amp 12/07/19 20:00 12/15/19 12:00 Duoneb - NEB 1 amp RQID [facility] Administration Atorvastatin Calcium 20 mg 12/07/19 22:00 12/14/19 23:48 Lipitor - PO 20 mg HS [facility] Administration Budesonide/Formoterol Fumarate 2 puff 12/07/19 22:00 12/15/19 10:03 Symbicort 160/4.5mcg - IH 2 puff BID [facility] Administration Escitalopram Oxalate 5 mg 12/09/19 10:00 12/15/19 10:02 Lexapro - PO 5 mg DAILY [facility] Administration Folic Acid 1 mg 12/08/19 10:00 12/15/19 10:02 Folic Acid - PO 1 mg DAILY [facility] Administration Furosemide 40 mg 12/08/19 10:00 12/15/19 10:02 Lasix - PO 40 mg DAILY [facility] Administration Hydralazine HCl 10 mg 12/08/19 22:00 12/15/19 10:02 Apresoline - PO 10 mg BID [facility] Administration Insulin Aspart 1 vial 12/07/19 22:00 12/15/19 11:55 Novolog Vial Sliding Scale - SQ Not Given ACHS [facility] Protocol Isosorbide Mononitrate 30 mg 12/07/19 22:00 12/15/19 10:02 Imdur - PO 30 mg BID [facility] Administration Lidocaine 1 patch 12/12/19 11:00 12/15/19 10:03 Lidoderm Patch - TP 1 patch DAILY [facility] Administration Metoprolol Succinate 25 mg 12/09/19 10:00 12/15/19 10:02 Toprol Xl - PO 25 mg DAILY [facility] Administration Miscellaneous 1 each 12/12/19 22:00 12/14/19 23:48 Lidoderm Patch Removal MC 1 each DAILY@2200 [facility] Administration Ondansetron HCl 4 mg 12/11/19 12:16 Zofran Odt - SL Q6H PRN NAUSEA AND/OR VOMITING Pantoprazole Sodium 40 mg 12/11/19 12:30 12/15/19 10:02 Protonix - PO 40 mg DAILY [facility] Administration Polysaccharide Iron Complex 150 mg 12/09/19 11:45 12/15/19 10:02 Niferex-150 - PO 150 mg DAILY [facility] Administration Pramipexole Dihydrochloride 0.5 mg 12/08/19 22:00 12/15/19 10:03 Mirapex - PO 0.5 mg BID [facility] Administration Pregabalin 25 mg 12/09/19 22:00 12/14/19 23:48 Lyrica - PO 25 mg HS [facility] Administration Sitagliptin Phosphate 25 mg 12/08/19 12:20 12/15/19 06:29 Januvia - PO 25 mg DAILY@0700 [facility] Administration Tramadol HCl 50 mg 12/15/19 11:20 12/15/19 12:22 Ultram - PO 50 mg Q8H PRN Administration PAIN LEVEL 6-10 Vancomycin HCl 125 mg 12/10/19 18:00 12/15/19 12:18 Vancomycin Oral Solution PO 125 mg Q6HPO [facility] Administration Impression 1. ESRD 2. anemia 3. CHF 4. HTN 5. DM 6. hyperlipidemia 7. anxiety 8. uterine cancer 9. hx GI bleed 10. COPD 11. breast cancer 12. restless leg syndrome Plan - HD tomorrow - permacath change tomorrow - renal diet - fluid restriction - volume status improved - lasix - restless leg symptoms improved
--- NOTE | 2019-12-15 13:14 | PN ---
Progress Note (short form) - Note Progress Note: PULMONARY Denies shortness of breath, cough. Still with left sided pain. c/o proximal leg muscle weakness. Vital Signs Period Temp Pulse Resp BP Sys/Padron Pulse Ox Last 24 Hr 97.2 F-97.9 F 74-80 18-20 131-154/66-81 95-97 Gen: NAD at rest Heart: RRR Lung: decreased breath sounds at the bases Abd: soft, nontender Ext: no edema CBC, BMP 12/14/19 09:45 12/14/19 09:45 Active Medications Acetaminophen (Tylenol -) 650 mg PO Q6H PRN PRN Reason: PAIN 1-3 Last Admin: 12/15/19 06:28 Dose: 650 mg Albuterol/Ipratropium (Duoneb -) 1 amp NEB RQID [facility] Last Admin: 12/15/19 12:00 Dose: 1 amp Atorvastatin Calcium (Lipitor -) 20 mg PO HS [facility] Last Admin: 12/14/19 23:48 Dose: 20 mg Budesonide/Formoterol Fumarate (Symbicort 160/4.5mcg -) 2 puff IH BID [facility] Last Admin: 12/15/19 10:03 Dose: 2 puff Escitalopram Oxalate (Lexapro -) 5 mg PO DAILY [facility] Last Admin: 12/15/19 10:02 Dose: 5 mg Folic Acid (Folic Acid -) 1 mg PO DAILY [facility] Last Admin: 12/15/19 10:02 Dose: 1 mg Furosemide (Lasix -) 40 mg PO DAILY [facility] Last Admin: 12/15/19 10:02 Dose: 40 mg Hydralazine HCl (Apresoline -) 10 mg PO BID [facility] Last Admin: 12/15/19 10:02 Dose: 10 mg Insulin Aspart (Novolog Vial Sliding Scale -) 1 vial SQ ACHS [facility]; Protocol Last Admin: 12/15/19 11:55 Dose: Not Given Isosorbide Mononitrate (Imdur -) 30 mg PO BID [facility] Last Admin: 12/15/19 10:02 Dose: 30 mg Lidocaine (Lidoderm Patch -) 1 patch TP DAILY [facility] Last Admin: 12/15/19 10:03 Dose: 1 patch Metoprolol Succinate (Toprol Xl -) 25 mg PO DAILY [facility] Last Admin: 12/15/19 10:02 Dose: 25 mg Miscellaneous (Lidoderm Patch Removal) 1 each MC DAILY@2200 [facility] Last Admin: 12/14/19 23:48 Dose: 1 each Ondansetron HCl (Zofran Odt -) 4 mg SL Q6H PRN PRN Reason: NAUSEA AND/OR VOMITING Pantoprazole Sodium (Protonix -) 40 mg PO DAILY [facility] Last Admin: 12/15/19 10:02 Dose: 40 mg Polysaccharide Iron Complex (Niferex-150 -) 150 mg PO DAILY [facility] Last Admin: 12/15/19 10:02 Dose: 150 mg Pramipexole Dihydrochloride (Mirapex -) 0.5 mg PO BID [facility] Last Admin: 12/15/19 10:03 Dose: 0.5 mg Pregabalin (Lyrica -) 25 mg PO HS [facility] Last Admin: 12/14/19 23:48 Dose: 25 mg Sitagliptin Phosphate (Januvia -) 25 mg PO DAILY@0700 [facility] Last Admin: 12/15/19 06:29 Dose: 25 mg Tramadol HCl (Ultram -) 50 mg PO Q8H PRN PRN Reason: PAIN LEVEL 6-10 Last Admin: 12/15/19 12:22 Dose: 50 mg Vancomycin HCl (Vancomycin Oral Solution) 125 mg PO Q6HPO [facility] Last Admin: 12/15/19 12:18 Dose: 125 mg A/P C Diff Colitis ESRD on HD LV Diastolic Dysfunction COPD Obstructive Sleep Apnea Restless Leg Syndrome HTN DM Hyperlipidemia Breast CA Anemia - neuro f/u - continue antibiotics for C diff - inhaled bronchodilators - O2 to keep SpO2 >90% - CPAP at night and PRN during day - HD per renal - DVT prophylaxis
[2019-12-15] MEDS ORDERED: FUROSEMIDE 40 MG/4 ML INJECTABLE VIAL IVPB ONE (14:15)
--- NOTE | 2019-12-15 15:04 | PN ---
Progress Note (short form) - Note Progress Note: VASCULAR SURGERY Pre-op note written yesterday. Scheduled for Permacath at 1PM tomorrow. Make NPO after midnight except PO meds. Problem List - Problems (1) ESRD (end stage renal disease) on dialysis Code(s): N18.6 - END STAGE RENAL DISEASE; Z99.2 - DEPENDENCE ON RENAL DIALYSIS (2) Anemia Code(s): D64.9 - ANEMIA, UNSPECIFIED (3) Asthma Code(s): J45.909 - UNSPECIFIED ASTHMA, UNCOMPLICATED (4) CAD (coronary artery disease) Code(s): I25.10 - ATHSCL HEART DISEASE OF [place] CORONARY ARTERY W/O ANG PCTRS Qualifiers: Coronary Disease-Associated Artery/Lesion type: [place] coronary artery Associated angina: with other forms of angina pectoris (5) CHF (congestive heart failure) Code(s): I50.9 - HEART FAILURE, UNSPECIFIED (6) COPD exacerbation Code(s): J44.1 - CHRONIC OBSTRUCTIVE PULMONARY DISEASE W (ACUTE) EXACERBATION
[2019-12-15] MEDS ORDERED: PT OWN MED DRAWER 7, Y5N ONE ×2 (19:23→22:32)
[2019-12-15] MEDS: PREGABALIN 25 MG CAPSULE PO SCH (22:41)
[2019-12-15] MEDS: ATORVASTATIN CA 20 MG TABLET (FP) PO SCH (22:41)
[2019-12-15] MEDS: LIDOCAINE PATCH REMOVAL MC SCH (22:43)
[2019-12-16] MEDS: INSULIN SLIDING SCALE (NOVOLOG) 1 VIAL SQ SCH ×4 (06:18→23:04)
[2019-12-16] MEDS: VANCOMYCIN 250 MG/5 ML ORAL SOLUTION PO SCH ×4 (06:52→23:30)
[2019-12-16] MEDS: ALBUTEROL SO4 2.5/IPRATROPIUM 0.5 INH SOL 3 ML VIAL.NEB. NEB SCH ×5 (07:30→20:35)
[2019-12-16] MEDS ORDERED: LIDOCAINE HCL 1%, 10 MG/ML (20ML VIAL) ONE (10:25)
[2019-12-16] MEDS ORDERED: MIDAZOLAM HCL 2 MG/2 ML SINGLE DOSE VIAL ONE (10:57)
[2019-12-16] MEDS ORDERED: ceFAZolin SODIUM 1 GM VIAL IVPB ONE (11:03)
[2019-12-16] MEDS ORDERED: LIDOCAINE HCL 1%, 10 MG/ML (20ML VIAL) NR ONE (11:10)
[2019-12-16] MEDS ORDERED: HEPARIN NA (PORCINE) 1,000 UNITS/ML 10ML M-D VIAL SQ ONE (11:10)
--- NOTE | 2019-12-16 11:18 | PN ---
Progress Note (short form) - Note Progress Note: PULMONARY For permacath exchange. Vital Signs Period Temp Pulse Resp BP Sys/Padron Pulse Ox Last 24 Hr 97.5 F-99.0 F 73-81 18-20 143-161/63-79 91-99 Gen: NAD at rest Heart: RRR Lung: decreased breath sounds at the bases Abd: soft, nontender Ext: no edema CBC, BMP 12/14/19 09:45 12/14/19 09:45 Active Medications Acetaminophen (Tylenol -) 650 mg PO Q6H PRN PRN Reason: PAIN 1-3 Last Admin: 12/15/19 06:28 Dose: 650 mg Albuterol/Ipratropium (Duoneb -) 1 amp NEB RQID [facility] Last Admin: 12/16/19 07:30 Dose: 1 amp Atorvastatin Calcium (Lipitor -) 20 mg PO HS [facility] Last Admin: 12/15/19 22:41 Dose: 20 mg Budesonide/Formoterol Fumarate (Symbicort 160/4.5mcg -) 2 puff IH BID [facility] Last Admin: 12/15/19 22:43 Dose: 2 puff Escitalopram Oxalate (Lexapro -) 5 mg PO DAILY [facility] Last Admin: 12/15/19 10:02 Dose: 5 mg Folic Acid (Folic Acid -) 1 mg PO DAILY [facility] Last Admin: 12/15/19 10:02 Dose: 1 mg Furosemide (Lasix -) 40 mg PO DAILY [facility] Last Admin: 12/15/19 10:02 Dose: 40 mg Hydralazine HCl (Apresoline -) 10 mg PO BID [facility] Last Admin: 12/15/19 22:41 Dose: 10 mg Insulin Aspart (Novolog Vial Sliding Scale -) 1 vial SQ ACHS [facility]; Protocol Last Admin: 12/16/19 06:18 Dose: Not Given Isosorbide Mononitrate (Imdur -) 30 mg PO BID [facility] Last Admin: 12/15/19 22:41 Dose: 30 mg Lidocaine (Lidoderm Patch -) 1 patch TP DAILY [facility] Last Admin: 12/15/19 10:03 Dose: 1 patch Metoprolol Succinate (Toprol Xl -) 25 mg PO DAILY [facility] Last Admin: 12/15/19 10:02 Dose: 25 mg Miscellaneous (Lidoderm Patch Removal) 1 each MC DAILY@2200 [facility] Last Admin: 12/15/19 22:43 Dose: 1 each Ondansetron HCl (Zofran Odt -) 4 mg SL Q6H PRN PRN Reason: NAUSEA AND/OR VOMITING Pantoprazole Sodium (Protonix -) 40 mg PO DAILY [facility] Last Admin: 12/15/19 10:02 Dose: 40 mg Polysaccharide Iron Complex (Niferex-150 -) 150 mg PO DAILY [facility] Last Admin: 12/15/19 10:02 Dose: 150 mg Pramipexole Dihydrochloride (Mirapex -) 0.5 mg PO BID [facility] Last Admin: 12/15/19 22:42 Dose: 0.5 mg Pregabalin (Lyrica -) 25 mg PO HS [facility] Last Admin: 12/15/19 22:41 Dose: 25 mg Sitagliptin Phosphate (Januvia -) 25 mg PO DAILY@0700 [facility] Last Admin: 12/16/19 06:17 Dose: Not Given Tramadol HCl (Ultram -) 50 mg PO Q8H PRN PRN Reason: PAIN LEVEL 6-10 Last Admin: 12/15/19 12:22 Dose: 50 mg Vancomycin HCl (Vancomycin Oral Solution) 125 mg PO Q6HPO [facility] Last Admin: 12/16/19 06:52 Dose: 125 mg A/P C Diff Colitis ESRD on HD LV Diastolic Dysfunction COPD Obstructive Sleep Apnea Restless Leg Syndrome HTN DM Hyperlipidemia Breast CA Anemia - permacath exchange - continue antibiotics for C diff - inhaled bronchodilators - O2 to keep SpO2 >90% - CPAP at night and PRN during day - HD per renal - DVT prophylaxis
--- NOTE | 2019-12-16 11:31 | OP ---
Operative Note - Note: Operative Date: 12/16/19 Pre-Operative Diagnosis: Dislodged Permacath Operation: Permacath exchange Post-Operative Diagnosis: Same as Pre-op Surgeon: Armando Churchill Anesthesia: Fractional Estimated Blood Loss (mls): 15 Operative Report Dictated: Yes
[2019-12-16] MEDS ORDERED: ONDANSETRON *ODT* 4 MG TABLET SL PRN (11:39)
[2019-12-16] MEDS ORDERED: ACETAMINOPHEN 325 MG TABLET (FP) PO PRN (11:39)
[2019-12-16] MEDS ORDERED: traMADol HCL 50 MG TABLET PO PRN (11:39)
--- NOTE | 2019-12-16 11:53 | PN ---
Progress Note, Physician Chief Complaint: Fall, Fatigue, Missed ESRD History of Present Illness: NAD Seen in dialysis Lethargic, sleeping while talking Leg cramps improved on Lyrica+ pramipexole States she fell at home because she felt weak in her legs + Cdiff, on PO vanco BL thigh edema resolved C/O excruciating left flank pain, unable to turn CT abd/pelvis shows flank edema (2/2 to fluid overload?) 24 lbs taken out by dialysis this admission Operative Date: 12/16/19 Pre-Operative Diagnosis: Dislodged Permacath Operation: Permacath exchange Post-Operative Diagnosis: Same as Pre-op - Current Medication List Current Medications: Active Medications Acetaminophen (Tylenol -) 650 mg PO Q6H PRN PRN Reason: PAIN 1-3 Albuterol/Ipratropium (Duoneb -) 1 amp NEB RQID [facility] Atorvastatin Calcium (Lipitor -) 20 mg PO HS [facility] Budesonide/Formoterol Fumarate (Symbicort 160/4.5mcg -) 2 puff IH BID [facility] Escitalopram Oxalate (Lexapro -) 5 mg PO DAILY [facility] Folic Acid (Folic Acid -) 1 mg PO DAILY [facility] Furosemide (Lasix -) 40 mg PO DAILY [facility] Hydralazine HCl (Apresoline -) 10 mg PO BID [facility] Insulin Aspart (Novolog Vial Sliding Scale -) 1 vial SQ ACHS [facility]; Protocol Isosorbide Mononitrate (Imdur -) 30 mg PO BID [facility] Lidocaine (Lidoderm Patch -) 1 patch TP DAILY [facility] Metoprolol Succinate (Toprol Xl -) 25 mg PO DAILY [facility] Miscellaneous (Lidoderm Patch Removal) 1 each MC DAILY@2200 [facility] Miscellaneous (Lidoderm Patch Removal) 1 each MC DAILY@2200 [facility] Ondansetron HCl (Zofran Odt -) 4 mg SL Q6H PRN PRN Reason: NAUSEA AND/OR VOMITING Pantoprazole Sodium (Protonix -) 40 mg PO DAILY [facility] Polysaccharide Iron Complex (Niferex-150 -) 150 mg PO DAILY [facility] Pramipexole Dihydrochloride (Mirapex -) 0.5 mg PO BID [facility] Pregabalin (Lyrica -) 25 mg PO HS [facility] Sitagliptin Phosphate (Januvia -) 25 mg PO DAILY@0700 [facility] Tramadol HCl (Ultram -) 50 mg PO Q8H PRN PRN Reason: PAIN LEVEL 6-10 Vancomycin HCl (Vancomycin Oral Solution) 125 mg PO Q6HPO [facility] - Objective Vital Signs: Vital Signs Temperature 99.0 F 12/16/19 09:00 Pulse Rate 81 12/16/19 09:00 Respiratory Rate 18 12/16/19 09:00 Blood Pressure 146/63 12/16/19 09:00 O2 Sat by Pulse Oximetry (%) 99 12/16/19 08:18 Constitutional: Yes: Well Nourished, No Distress, Calm Cardiovascular: Yes: Regular Rate and Rhythm Respiratory: Yes: Regular, CTA Bilaterally Gastrointestinal: Yes: Normal Bowel Sounds, Soft, Abdomen, Obese Breast(s): Yes: Right (mild edema) Musculoskeletal: Yes: Muscle Weakness Extremities: Yes: WNL Edema: No Peripheral Pulses WNL: Yes Neurological: Yes: Alert, Oriented Psychiatric: Yes: Alert, Oriented Labs: CBC, BMP 12/14/19 09:45 12/14/19 09:45 Problem List - Problems (1) ESRD (end stage renal disease) Assessment/Plan: -Nephrology consult -HD:MWF -Extra sessions as per Nephrology, Problems reviewed: Yes Code(s): N18.6 - END STAGE RENAL DISEASE (2) Fall at home Assessment/Plan: -Physical therapy eval -Safe/fall precautions -EKG unremarkable -CT head negative -SNF placement- Agrees to Joanne Problems reviewed: Yes Code(s): W19.XXXA - UNSPECIFIED FALL, INITIAL ENCOUNTER; Y92.009 - UNSP PLACE IN [facility] (PRIVATE[facility] RESIDENCE PLACE (3) Fatigue Assessment/Plan: -multifactorial -moderately lethargic -would keep lyrica once a day at bedtime -Seen by neurology -Restarted on pramipexole-increased dosage, if continues to be lethargic- may decrease or d/c if neurology agrees. Problems reviewed: Yes Code(s): R53.83 - OTHER FATIGUE Qualifiers: Fatigue type: unspecified Qualified Code(s): R53.83 - Other fatigue (4) Acute on chronic systolic (congestive) heart failure Assessment/Plan: -Diuretics as per nephrology Problems reviewed: Yes Code(s): I50.23 - ACUTE ON CHRONIC SYSTOLIC (CONGESTIVE) HEART FAILURE (5) CAD (coronary artery disease) Assessment/Plan: -Continue atorvastatin 20 mg po HS Problems reviewed: Yes Code(s): I25.10 - ATHSCL HEART DISEASE OF [place] CORONARY ARTERY W/O ANG PCTRS Qualifiers: Coronary Disease-Associated Artery/Lesion type: [place] coronary artery Associated angina: with other forms of angina pectoris (6) Diabetes mellitus Assessment/Plan: -Last A1c at 7.1 in 08/2019 -A1c at 6.9 -BGM AC HS -ISS -Renal diabetic diet Problems reviewed: Yes Code(s): E11.9 - TYPE 2 DIABETES MELLITUS WITHOUT COMPLICATIONS (7) Breast swelling Assessment/Plan: -right breast -improved -Seen by Oncology to r/o recurrence of breast ca -U/S breast negative for any obvious masses -Will need mammogram O/p -Also seen by Vascular surgery -Perma cath to be changed to left side in AM -Medically cleared with acceptable risks Problems reviewed: Yes Code(s): N63.0 - UNSPECIFIED LUMP IN UNSPECIFIED BREAST (8) Anemia Assessment/Plan: -multifactorial -DAVID vs CKD -Iron % low -Started iron polysaccharide 150 mg po daily -monitor labs Problems reviewed: Yes Code(s): D64.9 - ANEMIA, UNSPECIFIED (9) C. difficile diarrhea Assessment/Plan: -PO Vanco Q6H- 4 more days -Contact isolation Problems reviewed: Yes Code(s): A04.72 - ENTEROCOLITIS D/T CLOSTRIDIUM DIFFICILE, NOT SPCF RECUR (10) Abdominal pain Assessment/Plan: -CT abd/pelvis without contrast unremarkable -acetaminophen or tramadol for pain control as per pain scale Problems reviewed: Yes Code(s): R10.9 - UNSPECIFIED ABDOMINAL PAIN Assessment/Plan see problem list PT
[2019-12-16] MEDS ORDERED: ONDANSETRON 4 MG/2 ML VIAL ONE (12:46)
[2019-12-16] MEDS ORDERED: ALBUTEROL SO4 0.083% IH SOL 2.5 MG/3 ML VIAL.NEB. NEB ONE ×2 (12:51→12:53)
[2019-12-16] MEDS ORDERED: ONDANSETRON 4 MG/2 ML VIAL IVPUSH PRN (12:51)
[2019-12-16] MEDS ORDERED: ALBUTEROL SO4 2.5/IPRATROPIUM 0.5 INH SOL 3 ML VIAL.NEB. NEB ONE (12:52)
[2019-12-16] MEDS: PRAMIPEXOLE DIHYDROCHLORIDE 0.5 MG TABLET PO SCH ×3 (14:08→23:28)
[2019-12-16] MEDS ORDERED: PT OWN MED DRAWER 7, Y5N ONE ×2 (14:22→19:08)
[2019-12-16] MEDS: FOLIC ACID 1 MG TABLET (FP) PO SCH (14:32)
[2019-12-16] MEDS: hydrALAZINE HCL 10 MG TABLET PO SCH ×2 (14:32→23:03)
[2019-12-16] MEDS: PANTOPRAZOLE 40 MG TABLET PO SCH (14:34)
[2019-12-16] MEDS: FUROSEMIDE 40 MG TABLET (FP) PO SCH (14:34)
[2019-12-16] MEDS: ESCITALOPRAM OXALATE 10 MG TABLET PO SCH (14:34)
[2019-12-16] MEDS: ISOSORBIDE MONONITRATE 30 MG TAB.SR.24H (FP) PO SCH ×2 (14:34→23:03)
[2019-12-16] MEDS: LIDOCAINE 5% TOPICAL PATCH TP SCH (14:34)
[2019-12-16] MEDS: IRON POLYSACCHARIDES 150 MG CAPSULE PO SCH (14:34)
[2019-12-16] MEDS: metoPROLOL SUCCINATE 25 MG TAB.SR.24H (FP) PO SCH (14:35)
[2019-12-16] MEDS: BUDESONIDE/FORMETEROL FUMARATE 160/4.5 mcg INHALER IH SCH ×2 (14:35→23:05)
--- NOTE | 2019-12-16 16:09 | PN ---
Progress Note (short form) - Note Progress Note: s: sleeping comfortably with bipap, not rousable Current Medications Acetaminophen (Tylenol -) 650 mg PO Q6H PRN PRN Reason: PAIN 1-3 Albuterol/Ipratropium (Duoneb -) 1 amp NEB RQID [facility] Last Admin: 12/16/19 13:00 Dose: Not Given Atorvastatin Calcium (Lipitor -) 20 mg PO HS [facility] Budesonide/Formoterol Fumarate (Symbicort 160/4.5mcg -) 2 puff IH BID [facility] Escitalopram Oxalate (Lexapro -) 5 mg PO DAILY [facility] Folic Acid (Folic Acid -) 1 mg PO DAILY [facility] Furosemide (Lasix -) 40 mg PO DAILY [facility] Hydralazine HCl (Apresoline -) 10 mg PO BID [facility] Insulin Aspart (Novolog Vial Sliding Scale -) 1 vial SQ ACHS [facility]; Protocol Isosorbide Mononitrate (Imdur -) 30 mg PO BID [facility] Lidocaine (Lidoderm Patch -) 1 patch TP DAILY [facility] Metoprolol Succinate (Toprol Xl -) 25 mg PO DAILY [facility] Miscellaneous (Lidoderm Patch Removal) 1 each MC DAILY@2200 [facility] Ondansetron HCl (Zofran Odt -) 4 mg SL Q6H PRN PRN Reason: NAUSEA AND/OR VOMITING Last Admin: 12/16/19 12:45 Dose: 4 mg Ondansetron HCl (Zofran Injection) 4 mg IVPUSH Q6H PRN PRN Reason: NAUSEA AND/OR VOMITING Pantoprazole Sodium (Protonix -) 40 mg PO DAILY [facility] Polysaccharide Iron Complex (Niferex-150 -) 150 mg PO DAILY [facility] Pramipexole Dihydrochloride (Mirapex -) 0.5 mg PO BID [facility] Last Admin: 12/16/19 14:08 Dose: 0.5 mg Pregabalin (Lyrica -) 25 mg PO HS [facility] Sitagliptin Phosphate (Januvia -) 25 mg PO DAILY@0700 [facility] Tramadol HCl (Ultram -) 50 mg PO Q8H PRN PRN Reason: PAIN LEVEL 6-10 Vancomycin HCl (Vancomycin Oral Solution) 125 mg PO Q6HPO [facility] Last Admin: 12/16/19 14:10 Dose: 125 mg Vital Signs Period Temp Pulse Resp BP Sys/Padron Pulse Ox Last 24 Hr 97.5 F-99.0 F 73-87 14-84 142-176/62-79 91-99 Constitutional: Yes: No Distress Eyes: Yes: Conjunctiva Clear Respiratory: Yes: Other (decreased breath sounds, no active wheezing.) Gastrointestinal: Yes: Soft (No rebound or guarding tenderness) Cardiovascular: Yes: Regular Rate and Rhythm JVD: No PMI: Non-Displaced Heart Sounds: Yes: S1, S2 (rrr) Edema: No Neurological: Yes: Alert, Oriented no jaundice, diaphoresis not agitated Echo: Other (08/2019: Severe PHTN, EF 45%, global hk) Prior Cardiac Procedures: Cardiac Catheterization (2012: 50-60%OM, not FFR sig; mild disease elsewhere) Imaging - Results Cat Scan: Report Reviewed EKG: Image Reviewed Assessment/Plan DATA: MIBI 08/27 (pers): no ST change; TDS perfusion b/c of GI artifact and gating artifact; mild LV dilation and mild decr EFvisually (no TID) CXR: no congestion echo 05/2018 LV mildly dilated, borderline reduced LV function, grade II diastolic dysfunction, elevated filling pressures, LA mildly dilated, mild MAC, mild MR, mod TR, PASP at least 59 mmHg, no effusion EKG: sinus, nl intervals, no ischemic changes echo 08/2019 mild global hypokinesis EF 45%, RV nl, RA mod dilated, tr-mild MR, mod TR, RVSP at least 55 mmHg, severe pulm HTN Cath 2012: 50-60% OM1 non FFR sig. Mild disease elsewhere tele: sr ASSESSMENT/PLAN 63 yo with h/o systolic cardiomyopathy, non-obstructive cad, HTN, HL, pHTN, PAD , mod PARVEZ on cpap, COPD, ESRD on HD, DM, h/o GIB s/p cauterization of avms, chronic anemia, history of prolonged QT, DM now C.Diff + and now requiring Permacath exchange 1. Chronic systolic CHF: mild Lv dysfx. History of non-obstx CAD -hd per renal for vol management -not on EVELINA/ARB due to recurrent severe hyperkalemia -cont bb/ nitrate and hydralazine. -appears euvolemic at this time. 2. Chronic ischemic heart disease: - nonobstructive OM dz inc FFR negative, no history of angina -continue statin/ beta bethel -ECG without acute changes. - no asa - hx anemia 3. Essential hypertension: at goal -cont hydralazine, beta bethel, nitrate 4. Obstructive sleep apnea with PHTN: -USES CPAP AT HOME and intermittently here. 5. breast ca: -manage per heme/onc 6. PAD: - known h/o obstructive RLE disease, claudication--deferred [employer] previously due to risks of contrast nephropathy. To be addressed as outpatient now that on routine HD 7. DM: as per PMD 8. ESRD: as per renal. - s/p permacath exchange, manage per surgery 9. C.diff: as per ID
[2019-12-16] MEDS ORDERED: SODIUM CHLORIDE 250 ML IV PRN ×2 (17:12→17:13)
--- NOTE | 2019-12-16 17:12 | PN ---
Progress Note, Physician History of Present Illness: Pt seen and examined at bedside. She is awake and alert. SHe had the permacath changed. - Current Medication List Current Medications: Active Medications Acetaminophen (Tylenol -) 650 mg PO Q6H PRN PRN Reason: PAIN 1-3 Albuterol/Ipratropium (Duoneb -) 1 amp NEB RQID [facility] Last Admin: 12/16/19 16:31 Dose: 1 amp Atorvastatin Calcium (Lipitor -) 20 mg PO HS [facility] Budesonide/Formoterol Fumarate (Symbicort 160/4.5mcg -) 2 puff IH BID [facility] Escitalopram Oxalate (Lexapro -) 5 mg PO DAILY [facility] Folic Acid (Folic Acid -) 1 mg PO DAILY [facility] Furosemide (Lasix -) 40 mg PO DAILY [facility] Hydralazine HCl (Apresoline -) 10 mg PO BID [facility] Insulin Aspart (Novolog Vial Sliding Scale -) 1 vial SQ ACHS [facility]; Protocol Isosorbide Mononitrate (Imdur -) 30 mg PO BID [facility] Lidocaine (Lidoderm Patch -) 1 patch TP DAILY [facility] Metoprolol Succinate (Toprol Xl -) 25 mg PO DAILY [facility] Miscellaneous (Lidoderm Patch Removal) 1 each MC DAILY@2200 [facility] Ondansetron HCl (Zofran Odt -) 4 mg SL Q6H PRN PRN Reason: NAUSEA AND/OR VOMITING Last Admin: 12/16/19 12:45 Dose: 4 mg Ondansetron HCl (Zofran Injection) 4 mg IVPUSH Q6H PRN PRN Reason: NAUSEA AND/OR VOMITING Pantoprazole Sodium (Protonix -) 40 mg PO DAILY [facility] Polysaccharide Iron Complex (Niferex-150 -) 150 mg PO DAILY [facility] Pramipexole Dihydrochloride (Mirapex -) 0.5 mg PO BID [facility] Last Admin: 12/16/19 14:08 Dose: 0.5 mg Pregabalin (Lyrica -) 25 mg PO HS [facility] Sitagliptin Phosphate (Januvia -) 25 mg PO DAILY@0700 [facility] Tramadol HCl (Ultram -) 50 mg PO Q8H PRN PRN Reason: PAIN LEVEL 6-10 Vancomycin HCl (Vancomycin Oral Solution) 125 mg PO Q6HPO [facility] Last Admin: 12/16/19 14:10 Dose: 125 mg - Objective Vital Signs: Vital Signs Temperature 97.8 F 01/30/20 13:30 Pulse Rate 78 12/16/19 13:30 Respiratory Rate 18 12/16/19 13:30 Blood Pressure 146/62 12/16/19 13:30 O2 Sat by Pulse Oximetry (%) 97 12/16/19 13:30 Constitutional: Yes: Calm Eyes: Yes: Conjunctiva Clear HENT: Yes: Atraumatic Cardiovascular: Yes: S1, S2 Respiratory: Yes: CTA Bilaterally Gastrointestinal: Yes: Soft Genitourinary: Yes: WNL Edema: Yes Edema: LLE: 1+, RLE: 1+ Neurological: Yes: Oriented Psychiatric: Yes: Oriented Labs: CBC, BMP 12/14/19 09:45 12/14/19 09:45 Problem List - Problems (1) ESRD (end stage renal disease) Code(s): N18.6 - END STAGE RENAL DISEASE Assessment/Plan Current Medications Generic Name Dose Route Start Last Admin Trade Name Freq PRN Reason Stop Dose Admin Acetaminophen 650 mg 12/16/19 11:39 Tylenol - PO Q6H PRN PAIN 1-3 Albuterol/Ipratropium 1 amp 12/16/19 12:00 12/16/19 16:31 Duoneb - NEB 1 amp RQID [facility] Administration Atorvastatin Calcium 20 mg 12/16/19 22:00 Lipitor - PO HS [facility] Budesonide/Formoterol Fumarate 2 puff 12/16/19 22:00 Symbicort 160/4.5mcg - IH BID [facility] Escitalopram Oxalate 5 mg 12/17/19 10:00 Lexapro - PO DAILY [facility] Folic Acid 1 mg 12/17/19 10:00 Folic Acid - PO DAILY [facility] Furosemide 40 mg 12/17/19 10:00 Lasix - PO DAILY [facility] Hydralazine HCl 10 mg 12/16/19 22:00 Apresoline - PO BID [facility] Insulin Aspart 1 vial 12/16/19 16:30 Novolog Vial Sliding Scale - SQ ACHS [facility] Protocol Isosorbide Mononitrate 30 mg 12/16/19 22:00 Imdur - PO BID [facility] Lidocaine 1 patch 12/17/19 10:00 Lidoderm Patch - TP DAILY [facility] Metoprolol Succinate 25 mg 12/17/19 10:00 Toprol Xl - PO DAILY [facility] Miscellaneous 1 each 12/16/19 22:00 Lidoderm Patch Removal MC DAILY@2200 [facility] Ondansetron HCl 4 mg 12/16/19 11:39 12/16/19 12:45 Zofran Odt - SL 4 mg Q6H PRN Administration NAUSEA AND/OR VOMITING Ondansetron HCl 4 mg 12/16/19 12:51 Zofran Injection IVPUSH Q6H PRN NAUSEA AND/OR VOMITING Pantoprazole Sodium 40 mg 12/17/19 10:00 Protonix - PO DAILY [facility] Polysaccharide Iron Complex 150 mg 12/17/19 10:00 Niferex-150 - PO DAILY [facility] Pramipexole Dihydrochloride 0.5 mg 12/16/19 22:00 12/16/19 14:08 Mirapex - PO 0.5 mg BID [facility] Administration Pregabalin 25 mg 12/16/19 22:00 Lyrica - PO [facility] Sitagliptin Phosphate 25 mg 12/17/19 07:00 Januvia - PO DAILY@0700 [facility] Tramadol HCl 50 mg 12/16/19 11:39 Ultram - PO Q8H PRN PAIN LEVEL 6-10 Vancomycin HCl 125 mg 12/16/19 12:00 12/16/19 14:10 Vancomycin Oral Solution PO 125 mg Q6HPO [facility] Administration Impression 1. ESRD 2. anemia 3. CHF 4. HTN 5. DM 6. hyperlipidemia 7. anxiety 8. uterine cancer 9. hx GI bleed 10. COPD 11. breast cancer 12. restless leg syndrome Plan - HD today - pt s/p permacath changed - renal diet - fluid restriction - volume status improved
[2019-12-16] MEDS ORDERED: INSULIN (NOVOLOG) ASPART 100 UNITS/ML 10ML VIAL ONE (19:07)
[2019-12-16 19:20] LABS: MCH 30.8 pg (25.7-33.7); MCHC 30.7 g/dl (32.0-36.0); MEAN CELL VOLUME 100.5 fl (80-96); MEAN PLT VOLUME 10.2 fl (7.5-11.1); PLATELET COUNT 133 K/MM3 (134-434); RBC 2.59 M/mm3 (3.60-5.2); RDW 18.2 % (11.6-15.6); WHITE BLOOD COUNT 4.1 K/mm3 (4.0-10.0)
[2019-12-16 19:46] LABS: ALBUMIN 3.1 g/dl (3.4-5.0); BILIRUBIN,TOTAL 0.4 mg/dL (0.2-1); BLOOD UREA NITROGEN 36.4 mg/dL (7-18); CALCIUM 7.8 mg/dL (8.5-10.1); CREATININE 4.5 mg/dL (0.55-1.3); POTASSIUM 3.9 mmol/L (3.5-5.1); TOT PROT 6.5 g/dl (6.4-8.2)
[2019-12-16] MEDS ORDERED: LIDOCAINE PATCH REMOVAL MC SCH ×2 (22:00)
[2019-12-16] MEDS ORDERED: ATORVASTATIN CA 20 MG TABLET (FP) PO SCH (22:00)
[2019-12-16] MEDS ORDERED: PREGABALIN 25 MG CAPSULE PO SCH (22:00)
[2019-12-17] MEDS: INSULIN SLIDING SCALE (NOVOLOG) 1 VIAL SQ SCH ×2 (06:15→11:50)
[2019-12-17] MEDS: VANCOMYCIN 250 MG/5 ML ORAL SOLUTION PO SCH ×2 (06:15→11:55)
[2019-12-17] MEDS: ALBUTEROL SO4 2.5/IPRATROPIUM 0.5 INH SOL 3 ML VIAL.NEB. NEB SCH ×2 (08:17→12:30)
--- NOTE | 2019-12-17 09:10 | DS ---
Physical Examination Vital Signs: Vital Signs Temperature 98.4 F 12/16/19 18:35 Pulse Rate 85 12/17/19 05:02 Respiratory Rate 20 12/17/19 05:02 Blood Pressure 114/63 12/17/19 05:02 O2 Sat by Pulse Oximetry (%) 99 12/17/19 08:15 Cardiovascular: Yes: S1, S2 Respiratory: Yes: CTA Bilaterally, On BiPap Gastrointestinal: Yes: Normal Bowel Sounds, Soft Labs: CBC, BMP 12/16/19 18:40 12/16/19 18:40 Discharge Summary Problems reviewed: Yes Reason For Visit: PAIN IN LOWER EXTERMITY,FATIGUE Current Active Problems Breast swelling (Acute) C. difficile diarrhea (Acute) ESRD (end stage renal disease) (Acute) ESRD (end stage renal disease) on dialysis (Acute) Fall at home (Acute) Fatigue (Acute) Hemodialysis catheter malfunction (Acute) Hyponatremia (Acute) Leg pain (Acute) Hospital Course: - Problems (1) ESRD (end stage renal disease) Assessment/Plan: -Nephrology consult -HD:MWF -Extra sessions as per Nephrology, -Perma cath changed Problems reviewed: Yes Code(s): N18.6 - END STAGE RENAL DISEASE (2) Fall at home Assessment/Plan: -Physical therapy eval -Safe/fall precautions -EKG unremarkable -CT head negative -SNF placement- Agrees to Adira Problems reviewed: Yes Code(s): W19.XXXA - UNSPECIFIED FALL, INITIAL ENCOUNTER; Y92.009 - UNSP PLACE IN [facility]ENCE [facility] (3) Fatigue Assessment/Plan: -multifactorial -Better today -would keep lyrica once a day at bedtime -Seen by neurology -Restarted on pramipexole-increased dosage, if continues to be lethargic- may decrease or d/c if neurology agrees. Problems reviewed: Yes Code(s): R53.83 - OTHER FATIGUE Qualifiers: Fatigue type: unspecified Qualified Code(s): R53.83 - Other fatigue (4) Acute on chronic systolic (congestive) heart failure Assessment/Plan: -Diuretics as per nephrology -On Bipap Problems reviewed: Yes Code(s): I50.23 - ACUTE ON CHRONIC SYSTOLIC (CONGESTIVE) HEART FAILURE (5) CAD (coronary artery disease) Assessment/Plan: -Continue atorvastatin 20 mg po HS Problems reviewed: Yes Code(s): I25.10 - ATHSCL HEART DISEASE OF [place] CORONARY ARTERY W/O ANG PCTRS Qualifiers: Coronary Disease-Associated Artery/Lesion type: [place] coronary artery Associated angina: with other forms of angina pectoris (6) Diabetes mellitus Assessment/Plan: -Last A1c at 7.1 in 08/2019 -A1c at 6.9 -BGM AC HS -ISS -Renal diabetic diet Problems reviewed: Yes Code(s): E11.9 - TYPE 2 DIABETES MELLITUS WITHOUT COMPLICATIONS (7) Breast swelling Assessment/Plan: -right breast -improved -Seen by Oncology to r/o recurrence of breast ca -U/S breast negative for any obvious masses -Will need mammogram O/p -Also seen by Vascular surgery -Perma cath to be changed to left side in AM -Medically cleared with acceptable risks Problems reviewed: Yes Code(s): N63.0 - UNSPECIFIED LUMP IN UNSPECIFIED BREAST (8) Anemia Assessment/Plan: -multifactorial -DAVID vs CKD -Iron % low -Started iron polysaccharide 150 mg po daily -monitor labs Problems reviewed: Yes Code(s): D64.9 - ANEMIA, UNSPECIFIED (9) C. difficile diarrhea Assessment/Plan: -PO Vanco Q6H- 4 more days -Contact isolation Problems reviewed: Yes Code(s): A04.72 - ENTEROCOLITIS D/T CLOSTRIDIUM DIFFICILE, NOT SPCF RECUR (10) Abdominal pain Assessment/Plan: -CT abd/pelvis without contrast unremarkable -acetaminophen or tramadol for pain control as per pain scale Problems reviewed: Yes Code(s): R10.9 - UNSPECIFIED ABDOMINAL PAIN Condition: Stable - Instructions Referrals: Anyi Mcgrath MD [Primary Care Provider] - Disposition: CARE HOME FACILITY - Home Medications Comprehensive Discharge Medication List: Ambulatory Orders Alprazolam 0.5 mg PO DAILY 12/04/19 Atorvastatin Ca [Lipitor] 20 mg PO HS 12/04/19 Folic Acid 1 mg PO DAILY 12/04/19 Furosemide [Lasix -] 40 mg PO DAILY 12/04/19 Isosorbide Mononitrate [Isosorbide Mononitrate ER] 30 mg PO BID 12/04/19 Metoprolol Succinate [Toprol Xl] 25 mg PO DAILY 12/04/19 hydrALAZINE HCL [Apresoline -] 50 mg PO DAILY 12/04/19 Albuterol 2.5/Ipratropium 0.5 [Duoneb -] 1 amp NEB RQID amp 12/05/19 Budesonide/Formeterol Fumarate [SYMBICORT 160/4.5mcg -] 2 puff IH BID inhaler 12/05/19 Pramipexole Dihydrochloride [Mirapex -] 0.5 mg PO HS #31 tablet 12/05/19 Acetaminophen [Tylenol .Regular Strength -] 650 mg PO Q6H PRN tablet 12/17/19 Iron Polysaccharides [Niferex-150 -] 150 mg PO DAILY capsule 12/17/19 Ondansetron [Zofran *Odt*] 4 mg SL Q6H PRN tab.rapdis 12/17/19 Pantoprazole Sodium [Protonix -] 40 mg PO DAILY tablet.ec 12/17/19 Pregabalin [Lyrica -] 25 mg PO HS capsule MDD 1 12/17/19 Vancomycin Oral Solution 125 mg PO Q6HPO ml 12/17/19 traMADol HCL [Ultram -] 50 mg PO Q8H PRN tablet MDD 3 12/17/19
--- NOTE | 2019-12-17 09:27 | PN ---
Progress Note (short form) - Note Progress Note: VASCULAR SURGERY POD #1 s/p Permacatheter exchange No acute events per RN notes. Doing well. Sitting up in bed wearing her Bi-Pap. No complaints. AVSS. Afebrile Gen: nad Rt Cx wall: permacather in place.. slight staining of dressing. no hematoma. Problem List - Problems (1) ESRD (end stage renal disease) on dialysis Assessment/Plan: POD #1 No further vascular inteervention Cont care per primary team Re-consult surgery prn On behalf of Dr. Churchill, thank you for the opportunity to participate in your patient's care. Code(s): N18.6 - END STAGE RENAL DISEASE; Z99.2 - DEPENDENCE ON RENAL DIALYSIS (2) Anemia Code(s): D64.9 - ANEMIA, UNSPECIFIED (3) Asthma Code(s): J45.909 - UNSPECIFIED ASTHMA, UNCOMPLICATED (4) CAD (coronary artery disease) Code(s): I25.10 - ATHSCL HEART DISEASE OF [place] CORONARY ARTERY W/O ANG PCTRS Qualifiers: Coronary Disease-Associated Artery/Lesion type: [place] coronary artery Associated angina: with other forms of angina pectoris (5) CHF (congestive heart failure) Code(s): I50.9 - HEART FAILURE, UNSPECIFIED (6) COPD exacerbation Code(s): J44.1 - CHRONIC OBSTRUCTIVE PULMONARY DISEASE W (ACUTE) EXACERBATION
[2019-12-17] MEDS ORDERED: FOLIC ACID 1 MG TABLET (FP) PO SCH (10:00)
[2019-12-17] MEDS ORDERED: LIDOCAINE 5% TOPICAL PATCH TP SCH (10:00)
[2019-12-17] MEDS ORDERED: PANTOPRAZOLE 40 MG TABLET PO SCH (10:00)
[2019-12-17] MEDS ORDERED: ESCITALOPRAM OXALATE 10 MG TABLET PO SCH (10:00)
[2019-12-17] MEDS ORDERED: FUROSEMIDE 40 MG TABLET (FP) PO SCH (10:00)
[2019-12-17] MEDS ORDERED: metoPROLOL SUCCINATE 25 MG TAB.SR.24H (FP) PO SCH (10:00)
[2019-12-17] MEDS ORDERED: IRON POLYSACCHARIDES 150 MG CAPSULE PO SCH (10:00)
--- NOTE | 2019-12-17 10:05 | PN ---
Progress Note (short form) - Note Progress Note: Post op day#1.S/P Permacath under MAC uneventful.Patient stable.No any anesthesia related problem.Patient Dc from the anesthesia care.
[2019-12-17] MEDS: BUDESONIDE/FORMETEROL FUMARATE 160/4.5 mcg INHALER IH SCH (11:00)
[2019-12-17] MEDS: hydrALAZINE HCL 10 MG TABLET PO SCH (11:00)
[2019-12-17] MEDS: ISOSORBIDE MONONITRATE 30 MG TAB.SR.24H (FP) PO SCH (11:00)
[2019-12-17] MEDS: PRAMIPEXOLE DIHYDROCHLORIDE 0.5 MG TABLET PO SCH (11:00)
[2019-12-17 11:21] VITALS: BP 168/88; PULSE 90; TEMP 97.7
--- NOTE | 2019-12-17 14:54 | PROC ---
Intubation - Intubation Reason for Intubation: Other (Cardiopulmonary Arrest) Time of Intubation: 14:30 Intubation Method: orotracheal Blade used: Mac (3) Tube Size (cm): 7.0 Tube position @ lip (cm): 20 Tube position confirmed by: Direct visualization, CO2 detector, Chest x-ray ( chest x ray not taken yet), Breath sounds Breath Sounds after Intubation: equal Post Intubation Xray: No (pending. Xray not taken yet) Remarks: Code 99 Arrived at bedside with ACLS, chest compressions in progress. Code team at bedside as well. With compressions ongoing, Grade 2 view with MAC 3. ETT passed, cuff inflated and tube secured by Respiratory team. Breath sounds heard equally, bilaterally. Positive color change on carboximeter. Airway secured. Respiratory therapist ventilating via ETT with AMBU. Code still in progress with team at bedside checking for pulse. Continued critical care left with medical code team.
[2019-12-17] MEDS ORDERED: EPINEPHrine 1:10,000 (P-F SYR) 1 MG/10 ML DISP.SYRIN ONE (15:06)
--- NOTE | 2019-12-17 15:25 | PN ---
Progress Note (short form) - Note Progress Note: Patient arrived in the unit and was noted to be pulseless and in asystole. CPR was started, and patient underwent CPR from 1456 to 1315. At 1315, patient was noted to still be in asystole. She never had a perfusion rhythm. No response to sternal rub, negative corneal reflex. Time of : 1315.
--- NOTE | 2019-12-17 15:30 | RAPID ---
Physical Examination Vital Signs: Vital Signs Temperature 97.7 F 12/17/19 11:00 Pulse Rate 90 12/17/19 11:00 Respiratory Rate 20 12/17/19 11:00 Blood Pressure 168/88 12/17/19 11:00 O2 Sat by Pulse Oximetry (%) 95 12/17/19 09:00 Findings/Remarks: Code 99 called at 14:15. Please see Code Sheet for further details Pt transferred to ICU. Labs: CBC, BMP 12/16/19 18:40 12/16/19 18:40
--- NOTE | 2019-12-29 13:49 | OP ---
DATE OF OPERATION: 12/16/2019 PREOPERATIVE DIAGNOSIS: Dislodged PermCath. POSTOPERATIVE DIAGNOSIS: Dislodged PermCath. PROCEDURE: PermCath exchange. SURGEON: Armando Yang MD. ANESTHESIA: Fractional. BLOOD LOSS: 15 mL. INDICATION: The patient is a 64-year-old female that has a dislodged PermCath with the cuff exposed, decided that she would need to have the PermCath exchanged over guidewire. Patient was consented for this procedure, understanding all risks, benefits, and alternatives, and taken to the operating room. DESCRIPTION OF PROCEDURE: Once in the operating room, patient was laid on the operating table in a supine manner, and the area of the right neck and chest prepped and draped with Betadine solution in a sterile surgical manner. We then went ahead and placed a 0.035 floppy guidewire to our PermCath, and the PermCath was removed. We then went ahead and exchanged our gloves for sterility. We then went ahead and prepped our wire with Betadine. We then went ahead and placed a 23-cm PermCath over the guidewire into the vein under fluoroscopy. Cuff was placed inside the skin. The tip of the catheter was also at the right atrium. At this point, we steven back on each port of the catheter until there was good flow. Heparinized saline was each port. We then went ahead and used 4-0 Biosyn and 2 simple stitches were placed at the exit site of the port, 3-0 nylon was used on the catheter to the skin, Biopatch, 4x4s and Tegaderms and Steri-Strips. The patient tolerated the procedure with no complications. Patient was transferred to PACU in stable condition where chest x-ray will be obtained. ARMANDO YANG DO NP/[id number]
== END 2019-12-17 17:57 | disposition expired | DRG 73 ==
LOC: JER 11:59 → JERBED 15:25 → J5S 19:58 → JICU 12-17 15:02
PROVIDERS: ADMIT Internal Medicine; ATTEND Family Medicine
PROC: 5A1D70Z Performance of Urinary Filtration, Intermittent, Less than 6 Hours Per Day (ICD-10-PCS; 2019-12-07)
PROC: 5A1D70Z Performance of Urinary Filtration, Intermittent, Less than 6 Hours Per Day (ICD-10-PCS; 2019-12-09)
PROC: 5A1D70Z Performance of Urinary Filtration, Intermittent, Less than 6 Hours Per Day (ICD-10-PCS; 2019-12-10)
PROC: 5A1D70Z Performance of Urinary Filtration, Intermittent, Less than 6 Hours Per Day (ICD-10-PCS; 2019-12-11)
PROC: 5A1D70Z Performance of Urinary Filtration, Intermittent, Less than 6 Hours Per Day (ICD-10-PCS; 2019-12-14)
PROC: 5A1D70Z Performance of Urinary Filtration, Intermittent, Less than 6 Hours Per Day (ICD-10-PCS; 2019-12-16)
PROC: 02HV33Z Insertion of Infusion Device into Superior Vena Cava, Percutaneous Approach (ICD-10-PCS; 2019-12-16)
PROC: B518ZZA Fluoroscopy of Superior Vena Cava, Guidance (ICD-10-PCS; 2019-12-16)
PROC: 0CHY7BZ Insertion of Airway into Mouth and Throat, Via Natural or Artificial Opening (ICD-10-PCS; principal; 2019-12-17)
PROC: 5A1935Z Respiratory Ventilation, Less than 24 Consecutive Hours (ICD-10-PCS; 2019-12-17)
PROC: 5A12012 Performance of Cardiac Output, Single, Manual (ICD-10-PCS; 2019-12-17)
DX: E11.41 Type 2 diabetes mellitus with diabetic mononeuropathy (principal); N18.6 End stage renal disease; I50.23 Acute on chronic systolic (congestive) heart failure; G93.41 Metabolic encephalopathy; I13.2 Hypertensive heart and chronic kidney disease with heart failure and with stage 5 chronic kidney disease, or end stage renal disease; I43 Cardiomyopathy in diseases classified elsewhere; E87.1 Hypo-osmolality and hyponatremia; A04.72 Enterocolitis due to Clostridium difficile, not specified as recurrent; T85.628A Displacement of other specified internal prosthetic devices, implants and grafts, initial encounter; R53.83 Other fatigue; M79.604 Pain in right leg; G25.81 Restless legs syndrome; E78.5 Hyperlipidemia, unspecified; G47.33 Obstructive sleep apnea (adult) (pediatric); I25.10 Atherosclerotic heart disease of native coronary artery without angina pectoris; J44.9 Chronic obstructive pulmonary disease, unspecified; W18.39XA Other fall on same level, initial encounter; E86.0 Dehydration; N61.0 Mastitis without abscess; E87.70 Fluid overload, unspecified; E11.22 Type 2 diabetes mellitus with diabetic chronic kidney disease; E11.51 Type 2 diabetes mellitus with diabetic peripheral angiopathy without gangrene; E87.5 Hyperkalemia; I27.20 Pulmonary hypertension, unspecified; D63.8 Anemia in other chronic diseases classified elsewhere; J45.909 Unspecified asthma, uncomplicated; I25.9 Chronic ischemic heart disease, unspecified; R10.9 Unspecified abdominal pain; E11.65 Type 2 diabetes mellitus with hyperglycemia; F41.9 Anxiety disorder, unspecified; I46.9 Cardiac arrest, cause unspecified; Z85.42 Personal history of malignant neoplasm of other parts of uterus; Y92.090 Kitchen in other non-institutional residence as the place of occurrence of the external cause; Z85.3 Personal history of malignant neoplasm of breast; Z99.2 Dependence on renal dialysis; Y83.8 Other surgical procedures as the cause of abnormal reaction of the patient, or of later complication, without mention of misadventure at the time of the procedure
CPT/HCPCS: 36415; 36600; 70450-TC; 71045-TC-FY; 74018-TC-FY; 74176-TC; 76000-TC-FY; 76641-TC-RT; 80048; 80053; 80307; 81003; 82272; 82375; 82668; 82728; 82803; 82962; 83036; 83050; 83540; 83550; 84443; 85025; 85027; 86803; 87045; 87046; 87324; 87340; 87449; 93005; 93010; 94640; 94660; 94760; 97116-GP; 97162-GP; 99283-25; J1644; P9047; Q0162